=== PATIENT | female | born 1935 | race Caucasian/White ===

== ENCOUNTER → 2016-08-28 | Outpatient (REF) | payer MEDICARE, OTHER ==
[~2016-08-28] MED LIST: /ADVA50050 INH; /HCTZ25TA PO; /MOXI40TA PO; /WARF5TA; ADVAIR; ALB2.5NEB INH; ALBUTEROL; AMLO10TA2 PO; AMLO5TAB2 PO; AMLODIPINE PO; APAP325T PO; ASCO25TA PO; ASPI81TA85 PO; ASPI81TAEC PO; BAYE81TA10 PO; CALC600T21 PO; CALCTAB22; CALCTAB68 PO; CLAR10CA3 PO; CLAR5CHW; COLA100C PO; COLA50CA; COLCPOW6 PO; COUM10TA; COUM2.5T11 PO; COUMADIN; DOCU10ELUD PO; EUCECRE3 TOP; FERR324T5; FERR325T PO; FLON0.05; FLON0.054; GEMF600T PO; GLUC1000; GLUC500T PO; HYDR12.55 PO; HYDR200T3 PO; HYDR25TA6; IRON CR PO; IRON PO; IRON28TA; IRON65TA PO; IRONTAB3 PO; JANU50TA8 PO; K-TA1TAB PO; KLOR1TAB77 PO; LASI20TA PO; LASI40TA PO; LEVO250T PO; LEVO25TA2; LEVO25TA4 PO; LEVO25TA5 PO; LEVO75TA4 PO; LISI10TA4; LISI5TAB PO; LOPI600T; LORA10TA2 PO; METF1000 PO; METF500T PO; METO100T PO; METO50TA2 PO; METOPROLOL PO; MUCI600T34 PO; NEUR300C PO; NIFE15CA PO; OMEP20CA3 PO; OMEP20TA PO; PAIN325T; PLAQ200T PO; PRAD150C PO; PRAD75CA3 PO; PRED10TA PO; PRED10TA2 PO; PRIL20CA; PROAAER IN; SENO8.6T2 PO; SLOW160T PO; SUCR1TA PO; SYNT75TA PO; TOPR25TA PO; TOPROL; TYLE325T5 PO; VENTAER IN; VICO5TAB; VITA1CAP2 PO; VITACAP31 PO; ZYLO300T4 PO; ferrous gluconate; hydroxychloroquine; questran; toprol
[2016-08-28 12:59] LABS: BASO % 0.7 % (0.0-1.0); EOS # 0.2 K/mm3 (0.0-0.50); EOS % 4.5 % (0.0-3.0); LARGE UNSTAINED CELL # 0.1 K/mm3 (0.0-0.4); LARGE UNSTAINED CELL % 3.3 % (0.0-4.0); LYMPH % 25.1 % (24.0-44.0); MEAN CORPUSCULAR HEMOGLOBIN 30.9 pg (27.0-33.0); MEAN CORPUSCULAR HGB CONC 31.9 g/dl (32.0-36.5); MONO # 0.4 K/mm3 (0.0-0.8); MONO % 8.9 % (0.0-5.0); NEUTROPHILS # 2.2 K/mm3 (1.8-7.7); NEUTROPHILS % 57.5 % (36.0-66.0); PLATELET COUNT, AUTOMATED 230 k/mm3 (150-450); RED CELL DISTRIBUTION WIDTH 14.4 % (11.5-14.5); WHITE BLOOD COUNT 3.9 K/mm3 (4.0-10.0)
[2016-08-28 13:47] LABS: ALBUMIN 3.8 GM/DL (3.2-5.2); ALBUMIN/GLOBULIN RATIO 1.19 (1.00-1.93); BILIRUBIN,TOTAL 0.3 MG/DL (0.2-1.0); CALCIUM LEVEL 8.7 MG/DL (8.8-10.2); CREATININE FOR GFR 1.33 MG/DL (0.55-1.02); POTASSIUM SERUM 4.3 MEQ/L (3.5-5.1); URIC ACID 3.8 MG/DL (2.6-6.0)
== END ==
LOC: M LABDRAW1 11:32
PROVIDERS: ATTEND Internal Medicine Rheumatology
DX: Z79.899 Other long term (current) drug therapy (principal); M35.9 Systemic involvement of connective tissue, unspecified; N18.3 Chronic kidney disease, stage 3 (moderate); E79.0 Hyperuricemia without signs of inflammatory arthritis and tophaceous disease

== ENCOUNTER → 2016-10-26 | Outpatient (REF) | payer MEDICARE, OTHER ==
[2016-10-26 16:26] LABS: BASO % 0.7 % (0.0-1.0); EOS # 0.2 K/mm3 (0.0-0.50); EOS % 5.7 % (0.0-3.0); LARGE UNSTAINED CELL # 0.1 K/mm3 (0.0-0.4); LARGE UNSTAINED CELL % 2.5 % (0.0-4.0); LYMPH # 1.2 K/mm3 (1.5-4.5); LYMPH % 27.9 % (24.0-44.0); MEAN CORPUSCULAR HEMOGLOBIN 31.1 pg (27.0-33.0); MEAN CORPUSCULAR HGB CONC 32.4 g/dl (32.0-36.5); MEAN CORPUSCULAR VOLUME 95.8 fl (80.0-96.0); MONO # 0.3 K/mm3 (0.0-0.8); MONO % 8.6 % (0.0-5.0); NEUTROPHILS # 2.1 K/mm3 (1.8-7.7); NEUTROPHILS % 54.5 % (36.0-66.0); PLATELET COUNT, AUTOMATED 284 k/mm3 (150-450); WHITE BLOOD COUNT 3.9 K/mm3 (4.0-10.0)
[2016-10-26 16:41] LABS: ALBUMIN 3.8 GM/DL (3.2-5.2); ALBUMIN/GLOBULIN RATIO 1.23 (1.00-1.93); BILIRUBIN,TOTAL 0.4 MG/DL (0.2-1.0); CALCIUM LEVEL 8.5 MG/DL (8.8-10.2); CREATININE FOR GFR 1.3 MG/DL (0.55-1.02); GLOMERULAR FILTRATION RATE 42.1 (>39); POTASSIUM SERUM 4.2 MEQ/L (3.5-5.1); TOTAL PROTEIN 6.9 GM/DL (6.4-8.2); URIC ACID 3.8 MG/DL (2.6-6.0)
== END ==
LOC: M LABDRAW1 15:50
PROVIDERS: ATTEND Internal Medicine Rheumatology
DX: M06.09 Rheumatoid arthritis without rheumatoid factor, multiple sites (principal); Z79.899 Other long term (current) drug therapy; D63.8 Anemia in other chronic diseases classified elsewhere; M10.09 Idiopathic gout, multiple sites; N18.3 Chronic kidney disease, stage 3 (moderate)

== ENCOUNTER 2016-11-24 13:43 | Emergency (ER) | payer MEDICARE, OTHER ==
[~2016-11-24] VITALS: Ht 149.9 cm; Wt 99.8 kg
[~2016-11-24 13:43] MED LIST changes: -COLA100C PO; +COLA100C3 PO
[2016-11-24] MEDS ORDERED: CALC1TAB23 PO (14:06)
[2016-11-24 14:29] LABS: BASO % 0.6 % (0.0-1.0); EOS # 0.3 K/mm3 (0.0-0.50); EOS % 4.5 % (0.0-3.0); LARGE UNSTAINED CELL # 0.1 K/mm3 (0.0-0.4); LARGE UNSTAINED CELL % 1.7 % (0.0-4.0); LYMPH # 1.3 K/mm3 (1.5-4.5); LYMPH % 19.5 % (24.0-44.0); MEAN CORPUSCULAR HEMOGLOBIN 30.9 pg (27.0-33.0); MEAN CORPUSCULAR HGB CONC 31.5 g/dl (32.0-36.5); MEAN CORPUSCULAR VOLUME 97.9 fl (80.0-96.0); MONO # 0.5 K/mm3 (0.0-0.8); MONO % 7.8 % (0.0-5.0); NEUTROPHILS % 65.9 % (36.0-66.0); PLATELET COUNT, AUTOMATED 226 k/mm3 (150-450); RED CELL DISTRIBUTION WIDTH 16.5 % (11.5-14.5); WHITE BLOOD COUNT 6.1 K/mm3 (4.0-10.0)
[2016-11-24] MEDS ORDERED: CALC1TAB26 PO (14:32)
[2016-11-24] MEDS ORDERED: CALC1TAB63 PO (14:32)
[2016-11-24] MEDS ORDERED: FERR325T3 PO (14:34)
[2016-11-24] MEDS ORDERED: POTA1TAB14 PO (14:39)
[2016-11-24] MEDS ORDERED: LORA10TA2 PO (14:39)
[2016-11-24] MEDS ORDERED: OMEP40CA2 PO (14:39)
[2016-11-24] MEDS ORDERED: METO-209 PO (14:40)
[2016-11-24] MEDS ORDERED: METO-207 PO (14:40)
[2016-11-24 14:43] LABS: ABG BASE EXCESS -4.4 (-2.0-2.0); ABG HCO3 19.4 MEQ/L (22.0-26.0); ABG PARTIAL PRESSURE CO2 31.3 mmHg (35.0-45.0); ABG STANDARD HCO3 20.8 MEQ/L (22.0-26.0); ABG TOTAL CO2 20.3 MEQ/L (23.0-31.0); ABG pH (ARTERIAL) 7.409 UNITS (7.350-7.450)
[2016-11-24 15:07] LABS: ANION GAP 8 MEQ/L (8-16); BLOOD UREA NITROGEN 20 MG/DL (7-18); CARBON DIOXIDE LEVEL 26 MEQ/L (21-32); CHLORIDE LEVEL 108 MEQ/L (98-107); CREATININE FOR GFR 1.28 MG/DL (0.55-1.02); GLOMERULAR FILTRATION RATE 42.8 (>39); GLUCOSE, FASTING 99 MG/DL (83-110); POTASSIUM SERUM 4.3 MEQ/L (3.5-5.1); SODIUM LEVEL 142 MEQ/L (136-145)
[2016-11-24 15:13] LABS: ALBUMIN 3.6 GM/DL (3.2-5.2); ALBUMIN/GLOBULIN RATIO 0.92 (1.00-1.93); ALKALINE PHOSPHATASE 101 U/L (45-117); ALT/SGPT 11 U/L (12-78); AST/SGOT 14 U/L (15-37); BILIRUBIN,DIRECT < 0.1 MG/DL (0.0-0.2); BILIRUBIN,TOTAL 0.3 MG/DL (0.2-1.0); TOTAL PROTEIN 7.5 GM/DL (6.4-8.2)
[2016-11-24] MEDS ORDERED: IPRATROPIUM 0.5MG/ALBUTEROL 2.5MG INH SOL UD 3ML (DUONEB)(J7620) NEB ONE ×2 (15:15→16:30)
--- NOTE | 2016-11-24 15:41 | REP ---
Portable chest x-ray: Single view. History: Dyspnea and cough. Comparison chest x-ray November 08, 2015. Findings: A multilead pacemaker is seen in the right heart via the left side. Heart is mildly enlarged unchanged. There is no evidence of pleural effusion or pulmonary edema. No bony abnormality is seen. Impression: Pacemaker placed, mild cardiomegaly. Otherwise no active disease. Signed by William Ortega MD 11/24/2016 05:02 P
[2016-11-24] MEDS ORDERED: ISOVUE-370 76% 100ML VIAL (Q9967) As Ordered ONE (15:49)
--- NOTE | 2016-11-24 16:24 | REP ---
CT pulmonary angiogram: With IV contrast. History: Shortness of breath. Comparison studies: May 29, 2006. Contrast dose: 75 cc's of Isovue [address] technique: Helical scanning is acquired and overlapping 1.5 mm and contiguous 3 mm axial images are reformatted. In addition, a 3-D work station is deployed to generate thick slab maximum intensity projection images in sagittal and coronal imaging projections. CT pulmonary angiographic findings: There is good opacification of the pulmonary arterial tree. There is no CT evidence of pulmonary embolism. No evidence of aortic dissection or aneurysm is seen. Vascular calcification is noted. No pleural or pericardial effusion is seen. No hilar or mediastinal adenopathy is observed. No bony destructive lesion is seen. Maximum intensity projection images show no evidence of vessel cutoff or filling defect. Lung window settings show a few calcific granulomas in the right base. No pulmonary nodule, mass or infiltrate. The visualized upper abdominal structures are unremarkable. Impression: Negative CT pulmonary angiogram. No CT evidence of pulmonary embolism. Signed by William Ortega MD 11/24/2016 05:02 P
[2016-11-24] MEDS: IPRATROPIUM 0.5MG/ALBUTEROL 2.5MG INH SOL UD 3ML (DUONEB)(J7620) NEB PRN ×2 (16:36→16:48)
[2016-11-24 17:47] VITALS: BP 165/73
[2016-11-24 17:58] VITALS: O2SAT 91
[2016-11-24] MEDS ORDERED: NEBUMIS2 XX (18:14)
[2016-11-24] MEDS ORDERED: IPRASOL4 IN (18:15)
--- NOTE | 2016-11-24 20:39 | ECGEPIP ---
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
== END 2016-11-24 18:43 | disposition home or self-care (01) ==
LOC: M ED 14:40
DX: R06.2 Wheezing (principal); E11.9 Type 2 diabetes mellitus without complications; I48.2 Chronic atrial fibrillation
CPT/HCPCS: 36600; 71010; 71275; 80048; 80076; 82550; 82553; 82803; 83605; 83880; 84443; 84484; 85025; 87040; 93005; 93041; 94640; 94760; 99284; Q9967

== ENCOUNTER 2017-01-09 12:01 | Emergency (ER) | payer MEDICARE, OTHER ==
[~2017-01-09] VITALS: Ht 149.9 cm; Wt 98.4 kg
[~2017-01-09 12:01] MED LIST changes: +CALC1TAB23 PO; +CALC1TAB26 PO; +CALC1TAB63 PO; +FERR325T3 PO; +IPRASOL4 IN; +METO-207 PO; +METO-209 PO; +NEBUMIS2 XX; +OMEP40CA2 PO; +POTA1TAB14 PO
[2017-01-09] MEDS ORDERED: OMEP40CA2 PO (12:24)
[2017-01-09] MEDS ORDERED: IRON1TAB PO (12:24)
[2017-01-09] MEDS ORDERED: METO-207 PO (12:24)
[2017-01-09] MEDS ORDERED: LASI40TA PO (12:24)
[2017-01-09] MEDS ORDERED: METO-209 PO (12:24)
[2017-01-09] MEDS ORDERED: SYNT75TA PO (12:24)
[2017-01-09] MEDS ORDERED: EQ O20TA4 PO (12:24)
[2017-01-09] MEDS ORDERED: methylPREDNISolone INJ 125 MG/2 ML VIAL (J2930) IV ONE (12:45)
[2017-01-09 13:24] LABS: BASO % 0.3 % (0.0-1.0); EOS # 0.3 K/mm3 (0.0-0.50); EOS % 5.3 % (0.0-3.0); LARGE UNSTAINED CELL # 0.1 K/mm3 (0.0-0.4); LARGE UNSTAINED CELL % 1.4 % (0.0-4.0); LYMPH # 1.3 K/mm3 (1.5-4.5); LYMPH % 20.1 % (24.0-44.0); MEAN CORPUSCULAR HEMOGLOBIN 31.9 pg (27.0-33.0); MEAN CORPUSCULAR VOLUME 96.7 fl (80.0-96.0); MONO # 0.4 K/mm3 (0.0-0.8); MONO % 6.3 % (0.0-5.0); NEUTROPHILS # 4.1 K/mm3 (1.8-7.7); NEUTROPHILS % 66.6 % (36.0-66.0); PLATELET COUNT, AUTOMATED 211 k/mm3 (150-450); RED CELL DISTRIBUTION WIDTH 15.5 % (11.5-14.5); WHITE BLOOD COUNT 6.2 K/mm3 (4.0-10.0)
[2017-01-09] MEDS: IPRATROPIUM 0.5MG/ALBUTEROL 2.5MG INH SOL UD 3ML (DUONEB)(J7620) NEB PRN ×2 (13:26→15:18)
[2017-01-09 13:58] LABS: CALCIUM LEVEL 9.4 MG/DL (8.8-10.2); CREATININE FOR GFR 1.15 MG/DL (0.55-1.02); GLOMERULAR FILTRATION RATE 48.5 (>39); POTASSIUM SERUM 4.2 MEQ/L (3.5-5.1)
--- NOTE | 2017-01-09 14:20 | REP ---
Chest two views HISTORY: Dyspnea Comparison: 11/24/2016 The lungs are clear. The cardiac silhouette is enlarged. The pulmonary vasculature is normal in appearance. The bony structure is intact. A cardiac pacemaker is present. IMPRESSION: Cardiomegaly. Signed by Johan Arellano MD 01/09/2017 02:12 P
[2017-01-09 15:53] VITALS: BP 158/78
[2017-01-09 15:55] VITALS: O2SAT 96
[2017-01-09] MEDS ORDERED: PRED20TA PO (16:50)
--- NOTE | 2017-01-10 07:20 | ECGEPIP ---
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
== END 2017-01-09 17:48 | disposition home or self-care (01) ==
LOC: M ED 13:00
DX: J06.9 Acute upper respiratory infection, unspecified (principal); I48.91 Unspecified atrial fibrillation; I25.10 Atherosclerotic heart disease of native coronary artery without angina pectoris; I12.9 Hypertensive chronic kidney disease with stage 1 through stage 4 chronic kidney disease, or unspecified chronic kidney disease; E78.4 Other hyperlipidemia; N18.9 Chronic kidney disease, unspecified; Z87.891 Personal history of nicotine dependence
CPT/HCPCS: 71020; 80048; 82550; 82553; 83880; 84484; 85025; 93005; 93041; 94640; 94760; 96374; 99285; J2930

== ENCOUNTER → 2017-02-26 | Outpatient (CLI) | payer MEDICARE, OTHER ==
[~2017-02-26] MED LIST changes: -APAP325T PO; +APAP325T4 PO; -CALC600T21 PO; +CALC600T60 PO; -COLA100C3 PO; +COLA100C5 PO; -COUM2.5T11 PO; +COUM2.5T17 PO; +EQ O20TA4 PO; +FERR1TAB8 PO; -FERR325T PO; +IRON1TAB PO; -METF1000 PO; +METF10004 PO; -METF500T PO; +METF500T13 PO; -METO-207 PO; -METO-209 PO; -METO100T PO; +METO100T5 PO; +METO1TAB33 PO; +METO1TAB7 PO; -METO50TA2 PO; +METO50TA7 PO; +PRED20TA PO; -SENO8.6T2 PO; +SENO8.6T5 PO
--- NOTE | 2017-02-26 11:40 | REPMRS ---
Patient History The patient states she has not had a clinical breast exam in over a year. Patient is postmenopausal. Family history of breast cancer in mother at age 50 or over. Benign excisional biopsy of the right breast. Digital Woman Screen Mammo: February 26, 2017 - Exam #: [id number] Bilateral CC and MLO view(s) were taken. Technologist: Umm Nelson, Technologist Prior study comparison: February 14, 2016, digital woman screen mammo performed at [facility]. January 25, 2015, digital woman screen mammo performed at [facility] to [facility]. FINDINGS: There are scattered fibroglandular densities. There is a fairly symmetric fibroglandular pattern in both breasts. There has been no interval development of masses, areas of architectural distortion or clusters of microcalcifications typical of malignancy. ASSESSMENT: BI-RADS/ACR category 2 mammogram. Benign finding(s). Recommendation Routine screening mammogram of both breasts in 1 year (for women over age 40). This mammogram was interpreted with the aid of an FDA-approved computer-aided dectection system. Electronically Signed By: John Choi MD 02/26/17 [id number]
== END ==
LOC: M WHC 10:25
PROVIDERS: ATTEND Internal Medicine
DX: Z12.31 Encounter for screening mammogram for malignant neoplasm of breast (principal); Z78.0 Asymptomatic menopausal state; Z80.3 Family history of malignant neoplasm of breast

== ENCOUNTER → 2017-04-26 | Outpatient (REF) | payer MEDICARE, OTHER ==
[2017-04-26 16:24] LABS: ALBUMIN 4.1 GM/DL (3.2-5.2); ALBUMIN/GLOBULIN RATIO 1.11 (1.00-1.93); ALKALINE PHOSPHATASE 132 U/L (45-117); ALT/SGPT 11 U/L (12-78); ANION GAP 10 MEQ/L (8-16); AST/SGOT 17 U/L (15-37); BILIRUBIN,TOTAL 0.5 MG/DL (0.2-1.0); BLOOD UREA NITROGEN 42 MG/DL (7-18); CARBON DIOXIDE LEVEL 28 MEQ/L (21-32); CHLORIDE LEVEL 99 MEQ/L (98-107); CREATININE FOR GFR 1.41 MG/DL (0.55-1.02); GLOMERULAR FILTRATION RATE 38.3 (>39); GLUCOSE, FASTING 125 MG/DL (83-110); POTASSIUM SERUM 4.2 MEQ/L (3.5-5.1); SODIUM LEVEL 137 MEQ/L (136-145); TOTAL PROTEIN 7.8 GM/DL (6.4-8.2); URIC ACID 4.6 MG/DL (2.6-6.0)
[2017-04-26 17:06] LABS: BASO % 0.8 % (0.0-1.0); EOS # 0.3 K/mm3 (0.0-0.50); LARGE UNSTAINED CELL # 0.2 K/mm3 (0.0-0.4); LARGE UNSTAINED CELL % 2.8 % (0.0-4.0); LYMPH # 1.3 K/mm3 (1.5-4.5); LYMPH % 24.1 % (24.0-44.0); MEAN CORPUSCULAR HEMOGLOBIN 32.7 pg (27.0-33.0); MEAN CORPUSCULAR HGB CONC 33.7 g/dl (32.0-36.5); MONO # 0.4 K/mm3 (0.0-0.8); MONO % 7.7 % (0.0-5.0); NEUTROPHILS # 3.2 K/mm3 (1.8-7.7); NEUTROPHILS % 59.7 % (36.0-66.0); PLATELET COUNT, AUTOMATED 282 k/mm3 (150-450); RED CELL DISTRIBUTION WIDTH 14.7 % (11.5-14.5); WHITE BLOOD COUNT 5.4 K/mm3 (4.0-10.0)
== END ==
LOC: M LABDRAW1 13:11
PROVIDERS: ATTEND Internal Medicine Rheumatology
DX: M35.9 Systemic involvement of connective tissue, unspecified (principal); N18.3 Chronic kidney disease, stage 3 (moderate); Z79.899 Other long term (current) drug therapy

== ENCOUNTER 2017-08-02 15:27 | Emergency (ER) | payer MEDICARE, OTHER ==
[2017-08-02 16:22] LABS: BASO % 0.6 % (0.0-1.0); EOS # 0.2 10^3/uL (0.0-0.50); IMMATURE GRANULOCYTE % 0.8 % (0-0); LYMPH % 20.7 % (24.0-44.0); MEAN CORPUSCULAR HEMOGLOBIN 32.6 pg (27.0-33.0); MEAN CORPUSCULAR HGB CONC 31.8 g/dl (32.0-36.5); MEAN CORPUSCULAR VOLUME 102.3 fl (80.0-96.0); MONO # 0.6 10^3/uL (0.0-0.8); MONO % 11.7 % (0.0-5.0); NEUTROPHILS # 3.1 10^3/uL (1.8-7.7); NEUTROPHILS % 62.2 % (36.0-66.0); PLATELET COUNT, AUTOMATED 244 10^3/uL (150-450); RED CELL DISTRIBUTION WIDTH 16.3 % (11.5-14.5)
[2017-08-02] MEDS: methylPREDNISolone INJ 125 MG/2 ML VIAL (J2930) IV (16:30)
[2017-08-02] MEDS: FUROSEMIDE 40 MG/4 ML VIAL (J1940) IV (16:30)
[2017-08-02] MEDS: IPRATROPIUM 0.5MG/ALBUTEROL 2.5MG INH SOL UD 3ML (DUONEB)(J7620) NEB (16:39)
[2017-08-02 16:51] LABS: ANION GAP 7 MEQ/L (8-16); BLOOD UREA NITROGEN 16 MG/DL (7-18); CALCIUM LEVEL 8.2 MG/DL (8.8-10.2); CARBON DIOXIDE LEVEL 22 MEQ/L (21-32); CHLORIDE LEVEL 113 MEQ/L (98-107); CREATININE FOR GFR 1.11 MG/DL (0.55-1.02); GLOMERULAR FILTRATION RATE 50.5 (>39); GLUCOSE, FASTING 139 MG/DL (83-110); POTASSIUM SERUM 5.1 MEQ/L (3.5-5.1); SODIUM LEVEL 142 MEQ/L (136-145)
== END 2017-08-02 17:39 | disposition home or self-care (01) ==
LOC: M ED 15:27
DX: R06.02 Shortness of breath (principal); I50.9 Heart failure, unspecified; K21.9 Gastro-esophageal reflux disease without esophagitis; Z79.82 Long term (current) use of aspirin; Z79.899 Other long term (current) drug therapy; Z79.84 Long term (current) use of oral hypoglycemic drugs; Z88.5 Allergy status to narcotic agent; Z91.040 Latex allergy status; Z91.048 Other nonmedicinal substance allergy status; Z95.0 Presence of cardiac pacemaker; Z87.01 Personal history of pneumonia (recurrent); Z98.890 Other specified postprocedural states; Z87.891 Personal history of nicotine dependence
CPT/HCPCS: J1940

== ENCOUNTER 2017-09-18 06:01 | Inpatient (IN) | payer MEDICARE, OTHER ==
[2017-09-18 08:19] LABS: BASO % 0.5 % (0.0-1.0); EOS # 0.1 10^3/uL (0.0-0.50); EOS % 1.7 % (0.0-3.0); HEMATOCRIT 28.4 % (36.0-47.0); IMMATURE GRANULOCYTE % 0.4 % (0-3.0); LYMPH # 0.8 10^3/uL (1.5-4.5); LYMPH % 9.2 % (24.0-44.0); MEAN CORPUSCULAR HEMOGLOBIN 31.5 pg (27.0-33.0); MEAN CORPUSCULAR HGB CONC 31.7 g/dl (32.0-36.5); MEAN CORPUSCULAR VOLUME 99.3 fl (80.0-96.0); MONO # 0.7 10^3/uL (0.0-0.8); MONO % 8.8 % (0.0-5.0); NEUTROPHILS # 6.6 10^3/uL (1.8-7.7); NEUTROPHILS % 79.4 % (36.0-66.0); PLATELET COUNT, AUTOMATED 277 10^3/uL (150-450); RED BLOOD COUNT 2.86 10^6/uL (4.00-5.40); WHITE BLOOD COUNT 8.3 10^3/uL (4.0-10.0)
[2017-09-18 08:22] LABS: INR 1.31; PROTHROMBIN TIME 16.6 SECONDS (12.4-14.5)
[2017-09-18 08:23] LABS: PARTIAL THROMBOPLASTIN TIME 54.4 SECONDS (26.8-37.9)
[2017-09-18 08:38] LABS: ALBUMIN 3.6 GM/DL (3.2-5.2); ALKALINE PHOSPHATASE 101 U/L (45-117); ALT/SGPT 9 U/L (12-78); ANION GAP 12 MEQ/L (8-16); AST/SGOT 12 U/L (7-37); BILIRUBIN,DIRECT < 0.1 MG/DL (0.0-0.2); BILIRUBIN,TOTAL 0.3 MG/DL (0.2-1.0); BLOOD UREA NITROGEN 40 MG/DL (7-18); CALCIUM LEVEL 8.8 MG/DL (8.8-10.2); CARBON DIOXIDE LEVEL 25 MEQ/L (21-32); CHLORIDE LEVEL 105 MEQ/L (98-107); CREATININE FOR GFR 1.57 MG/DL (0.55-1.30); GLOMERULAR FILTRATION RATE 33.7 (>32); GLUCOSE, FASTING 159 MG/DL (70-100); POTASSIUM SERUM 4.4 MEQ/L (3.5-5.1); SODIUM LEVEL 142 MEQ/L (136-145); TOTAL PROTEIN 6.6 GM/DL (6.4-8.2)
[2017-09-18] MEDS ORDERED: ISOVUE-370 76% 100ML VIAL (Q9967) As Ordered (08:50)
[2017-09-18] MEDS: NS 500 ML IV (09:30)
[2017-09-18] MEDS ORDERED: GLUCAGON FOR INJ 1 MG VIAL (J1610) SC (11:45)
[2017-09-18] MEDS ORDERED: MORPHINE 4 MG/ML 1ML VIAL (J2270) IV (11:45)
[2017-09-18] MEDS ORDERED: DEXTROSE 50% 50 ML SYRINGE IV (11:45)
[2017-09-18] MEDS ORDERED: GLUCOSE 4 GM CHEW TABLET PO (11:45)
[2017-09-18 12:32] LABS: BEDSIDE GLUCOSE 214 MG/DL (83-110)
[2017-09-18] MEDS: HumaLOG INSULIN (NovoLOG) PER UNIT SC ×3 (13:10→21:00)
[2017-09-18] MEDS: HEPARIN SOD (PORCINE) 5000 UNITS/ML VIAL SC ×2 (13:10→21:14)
[2017-09-18] MEDS: LORATADINE 10 MG TAB PO (15:03)
[2017-09-18] MEDS: ASPIRIN 81 MG ENTERIC TAB PO (15:03)
[2017-09-18] MEDS: ALLOPURINOL 300 MG TAB PO (15:03)
[2017-09-18] MEDS: OMEPRAZOLE 20 MG CAP PO (15:03)
[2017-09-18] MEDS: HYDROXYCHLOROQUINE 200 MG TAB PO (16:33)
[2017-09-18] MEDS: SUCRALFATE 1 GM TAB PO ×2 (16:33→21:12)
[2017-09-18] MEDS: LEVOTHYROXINE 37.5MCG PER 1/2TAB (0.0375MG) PO (16:33)
[2017-09-18 17:34] LABS: BEDSIDE GLUCOSE 156 MG/DL (83-110)
[2017-09-18] MEDS: METOPROLOL SUCC (TopROL XL) 50MG **XL** TAB PO (21:13)
[2017-09-18] MEDS: DABIGATRAN ETEXILATE 75 MG CAP (PRADAXA) PO (21:13)
[2017-09-18] MEDS: FERROUS SULFATE 325MG TAB PO (21:15)
[2017-09-19 06:27] LABS: HEMATOCRIT 25.2 % (36.0-47.0); MEAN CORPUSCULAR HEMOGLOBIN 30.9 pg (27.0-33.0); MEAN CORPUSCULAR HGB CONC 31.7 g/dl (32.0-36.5); MEAN CORPUSCULAR VOLUME 97.3 fl (80.0-96.0); PLATELET COUNT, AUTOMATED 236 10^3/uL (150-450); RED BLOOD COUNT 2.59 10^6/uL (4.00-5.40); WHITE BLOOD COUNT 4.2 10^3/uL (4.0-10.0)
[2017-09-19 06:39] LABS: ANION GAP 9 MEQ/L (8-16); BLOOD UREA NITROGEN 36 MG/DL (7-18); CALCIUM LEVEL 8.9 MG/DL (8.8-10.2); CARBON DIOXIDE LEVEL 25 MEQ/L (21-32); CHLORIDE LEVEL 108 MEQ/L (98-107); CREATININE FOR GFR 1.21 MG/DL (0.55-1.30); GLOMERULAR FILTRATION RATE 45.6 (>32); GLUCOSE, FASTING 155 MG/DL (70-100); MAGNESIUM LEVEL 1.8 MG/DL (1.8-2.4); POTASSIUM SERUM 3.9 MEQ/L (3.5-5.1); SODIUM LEVEL 142 MEQ/L (136-145)
[2017-09-19] MEDS: HEPARIN SOD (PORCINE) 5000 UNITS/ML VIAL SC ×3 (06:53→22:15)
[2017-09-19] MEDS: LEVOTHYROXINE 37.5MCG PER 1/2TAB (0.0375MG) PO (06:53)
[2017-09-19] MEDS: HumaLOG INSULIN (NovoLOG) PER UNIT SC ×4 (08:40→21:00)
[2017-09-19] MEDS: ASPIRIN 81 MG ENTERIC TAB PO (08:40)
[2017-09-19] MEDS: HYDROXYCHLOROQUINE 200 MG TAB PO (08:40)
[2017-09-19] MEDS: LORATADINE 10 MG TAB PO (08:40)
[2017-09-19] MEDS: DABIGATRAN ETEXILATE 75 MG CAP (PRADAXA) PO ×2 (08:40→22:15)
[2017-09-19] MEDS: SUCRALFATE 1 GM TAB PO ×4 (08:41→22:15)
[2017-09-19] MEDS: FERROUS SULFATE 325MG TAB PO ×2 (08:41→22:15)
[2017-09-19] MEDS: METOPROLOL SUCC (TopROL XL) 100MG *XL* TAB PO (08:41)
[2017-09-19] MEDS: OMEPRAZOLE 20 MG CAP PO (08:41)
[2017-09-19] MEDS: ALLOPURINOL 300 MG TAB PO (08:41)
[2017-09-19 10:11] LABS: BEDSIDE GLUCOSE 203 MG/DL (83-110)
[2017-09-19 12:09] LABS: BEDSIDE GLUCOSE 244 MG/DL (83-110)
[2017-09-19 18:35] LABS: BASO # 0.1 10^3/uL (0.0-0.2); EOS # 0.2 10^3/uL (0.0-0.50); EOS % 3.2 % (0.0-3.0); HEMATOCRIT 26.9 % (36.0-47.0); HEMOGLOBIN 8.6 g/dl (12.0-16.0); IMMATURE GRANULOCYTE % 0.5 % (0-3.0); LYMPH # 1.3 10^3/uL (1.5-4.5); LYMPH % 21.3 % (24.0-44.0); MEAN CORPUSCULAR HEMOGLOBIN 31.4 pg (27.0-33.0); MEAN CORPUSCULAR VOLUME 98.2 fl (80.0-96.0); MONO # 0.7 10^3/uL (0.0-0.8); MONO % 12.3 % (0.0-5.0); NEUTROPHILS # 3.6 10^3/uL (1.8-7.7); NEUTROPHILS % 61.7 % (36.0-66.0); PLATELET COUNT, AUTOMATED 254 10^3/uL (150-450); RED BLOOD COUNT 2.74 10^6/uL (4.00-5.40); RED CELL DISTRIBUTION WIDTH 14.2 % (11.5-14.5); WHITE BLOOD COUNT 5.9 10^3/uL (4.0-10.0)
[2017-09-19 21:04] LABS: BEDSIDE GLUCOSE 243 MG/DL (83-110)
[2017-09-19 21:30] LABS: BEDSIDE GLUCOSE 188 MG/DL (83-110)
[2017-09-19] MEDS: METOPROLOL SUCC (TopROL XL) 50MG **XL** TAB PO (22:15)
[2017-09-19] MEDS: ACETAMINOPHEN TAB 650MG DOSE (2X325MG) PO (22:25)
[2017-09-20] MEDS: LEVOTHYROXINE 37.5MCG PER 1/2TAB (0.0375MG) PO (05:24)
[2017-09-20] MEDS: HEPARIN SOD (PORCINE) 5000 UNITS/ML VIAL SC ×3 (05:24→21:21)
[2017-09-20 05:49] LABS: HEMATOCRIT 27.3 % (36.0-47.0); HEMOGLOBIN 8.7 g/dl (12.0-16.0); MEAN CORPUSCULAR HGB CONC 31.9 g/dl (32.0-36.5); MEAN CORPUSCULAR VOLUME 97.2 fl (80.0-96.0); PLATELET COUNT, AUTOMATED 268 10^3/uL (150-450); RED BLOOD COUNT 2.81 10^6/uL (4.00-5.40); RED CELL DISTRIBUTION WIDTH 14.1 % (11.5-14.5); WHITE BLOOD COUNT 6.2 10^3/uL (4.0-10.0)
[2017-09-20 06:05] LABS: ANION GAP 10 MEQ/L (8-16); BLOOD UREA NITROGEN 37 MG/DL (7-18); CALCIUM LEVEL 9.1 MG/DL (8.8-10.2); CARBON DIOXIDE LEVEL 24 MEQ/L (21-32); CHLORIDE LEVEL 109 MEQ/L (98-107); CREATININE FOR GFR 1.21 MG/DL (0.55-1.30); GLOMERULAR FILTRATION RATE 45.6 (>32); GLUCOSE, FASTING 174 MG/DL (70-100); MAGNESIUM LEVEL 1.9 MG/DL (1.8-2.4); POTASSIUM SERUM 3.8 MEQ/L (3.5-5.1); SODIUM LEVEL 143 MEQ/L (136-145)
[2017-09-20] MEDS: OMEPRAZOLE 20 MG CAP PO (08:15)
[2017-09-20] MEDS: DABIGATRAN ETEXILATE 75 MG CAP (PRADAXA) PO ×2 (08:15→21:21)
[2017-09-20] MEDS: HumaLOG INSULIN (NovoLOG) PER UNIT SC ×4 (08:15→21:00)
[2017-09-20] MEDS: SUCRALFATE 1 GM TAB PO ×4 (08:15→21:21)
[2017-09-20] MEDS: ALLOPURINOL 300 MG TAB PO (08:16)
[2017-09-20] MEDS: ASPIRIN 81 MG ENTERIC TAB PO (08:16)
[2017-09-20] MEDS: LORATADINE 10 MG TAB PO (08:16)
[2017-09-20] MEDS: METOPROLOL SUCC (TopROL XL) 100MG *XL* TAB PO (08:16)
[2017-09-20] MEDS: HYDROXYCHLOROQUINE 200 MG TAB PO (08:16)
[2017-09-20] MEDS: FERROUS SULFATE 325MG TAB PO ×2 (08:16→21:22)
[2017-09-20 11:55] LABS: BEDSIDE GLUCOSE 265 MG/DL (83-110)
[2017-09-20 17:41] LABS: BEDSIDE GLUCOSE 218 MG/DL (83-110)
[2017-09-20] MEDS: METOPROLOL SUCC (TopROL XL) 50MG **XL** TAB PO (21:22)
[2017-09-20] MEDS: ACETAMINOPHEN TAB 650MG DOSE (2X325MG) PO (21:22)
[2017-09-21] MEDS ORDERED: SENOKOT S TAB PO (02:45)
[2017-09-21 02:49] LABS: BEDSIDE GLUCOSE 224 MG/DL (83-110)
[2017-09-21] MEDS: HEPARIN SOD (PORCINE) 5000 UNITS/ML VIAL SC ×3 (05:51→21:37)
[2017-09-21] MEDS: LEVOTHYROXINE 37.5MCG PER 1/2TAB (0.0375MG) PO (05:51)
[2017-09-21 06:13] LABS: HEMATOCRIT 25.2 % (36.0-47.0); HEMOGLOBIN 8.1 g/dl (12.0-16.0); MEAN CORPUSCULAR HEMOGLOBIN 31.3 pg (27.0-33.0); MEAN CORPUSCULAR HGB CONC 32.1 g/dl (32.0-36.5); MEAN CORPUSCULAR VOLUME 97.3 fl (80.0-96.0); PLATELET COUNT, AUTOMATED 245 10^3/uL (150-450); RED BLOOD COUNT 2.59 10^6/uL (4.00-5.40); RED CELL DISTRIBUTION WIDTH 14.2 % (11.5-14.5); WHITE BLOOD COUNT 4.7 10^3/uL (4.0-10.0)
[2017-09-21 07:03] LABS: ANION GAP 12 MEQ/L (8-16); BLOOD UREA NITROGEN 36 MG/DL (7-18); CALCIUM LEVEL 8.2 MG/DL (8.8-10.2); CARBON DIOXIDE LEVEL 23 MEQ/L (21-32); CHLORIDE LEVEL 108 MEQ/L (98-107); CREATININE FOR GFR 1.15 MG/DL (0.55-1.30); GLOMERULAR FILTRATION RATE 48.3 (>32); GLUCOSE, FASTING 164 MG/DL (70-100); MAGNESIUM LEVEL 1.9 MG/DL (1.8-2.4); POTASSIUM SERUM 3.5 MEQ/L (3.5-5.1); SODIUM LEVEL 143 MEQ/L (136-145)
[2017-09-21] MEDS: HumaLOG INSULIN (NovoLOG) PER UNIT SC ×4 (08:42→21:37)
[2017-09-21] MEDS: OMEPRAZOLE 20 MG CAP PO (08:42)
[2017-09-21] MEDS: ASPIRIN 81 MG ENTERIC TAB PO (08:42)
[2017-09-21] MEDS: METOPROLOL SUCC (TopROL XL) 100MG *XL* TAB PO (08:42)
[2017-09-21] MEDS: FERROUS SULFATE 325MG TAB PO ×2 (08:42→21:38)
[2017-09-21] MEDS: SUCRALFATE 1 GM TAB PO ×4 (08:42→21:38)
[2017-09-21] MEDS: LORATADINE 10 MG TAB PO (08:42)
[2017-09-21] MEDS: ALLOPURINOL 300 MG TAB PO (08:42)
[2017-09-21] MEDS: DABIGATRAN ETEXILATE 75 MG CAP (PRADAXA) PO ×2 (08:42→21:37)
[2017-09-21] MEDS: HYDROXYCHLOROQUINE 200 MG TAB PO (08:53)
[2017-09-21 11:50] LABS: BEDSIDE GLUCOSE 201 MG/DL (83-110)
[2017-09-21 17:06] LABS: BEDSIDE GLUCOSE 222 MG/DL (83-110)
[2017-09-21] MEDS: METOPROLOL SUCC (TopROL XL) 50MG **XL** TAB PO (21:38)
[2017-09-22] MEDS: HEPARIN SOD (PORCINE) 5000 UNITS/ML VIAL SC (05:43)
[2017-09-22] MEDS: LEVOTHYROXINE 37.5MCG PER 1/2TAB (0.0375MG) PO (05:43)
[2017-09-22 06:56] LABS: HEMATOCRIT 23.4 % (36.0-47.0); HEMOGLOBIN 7.5 g/dl (12.0-16.0); MEAN CORPUSCULAR HGB CONC 32.1 g/dl (32.0-36.5); MEAN CORPUSCULAR VOLUME 96.7 fl (80.0-96.0); PLATELET COUNT, AUTOMATED 222 10^3/uL (150-450); RED BLOOD COUNT 2.42 10^6/uL (4.00-5.40); RED CELL DISTRIBUTION WIDTH 14.1 % (11.5-14.5)
[2017-09-22 07:20] LABS: ANION GAP 10 MEQ/L (8-16); BLOOD UREA NITROGEN 36 MG/DL (7-18); CALCIUM LEVEL 8.2 MG/DL (8.8-10.2); CARBON DIOXIDE LEVEL 24 MEQ/L (21-32); CHLORIDE LEVEL 108 MEQ/L (98-107); GLOMERULAR FILTRATION RATE 50.9 (>32); GLUCOSE, FASTING 172 MG/DL (70-100); MAGNESIUM LEVEL 1.9 MG/DL (1.8-2.4); POTASSIUM SERUM 3.5 MEQ/L (3.5-5.1); SODIUM LEVEL 142 MEQ/L (136-145)
[2017-09-22] MEDS: DABIGATRAN ETEXILATE 75 MG CAP (PRADAXA) PO (07:49)
[2017-09-22] MEDS: ALLOPURINOL 300 MG TAB PO (07:49)
[2017-09-22] MEDS: OMEPRAZOLE 20 MG CAP PO (07:49)
[2017-09-22] MEDS: HumaLOG INSULIN (NovoLOG) PER UNIT SC ×4 (07:50→21:00)
[2017-09-22] MEDS: SUCRALFATE 1 GM TAB PO ×4 (07:50→21:25)
[2017-09-22] MEDS: FERROUS SULFATE 325MG TAB PO ×2 (07:50→21:25)
[2017-09-22] MEDS: METOPROLOL SUCC (TopROL XL) 100MG *XL* TAB PO (07:50)
[2017-09-22] MEDS: ASPIRIN 81 MG ENTERIC TAB PO (07:50)
[2017-09-22] MEDS: HYDROXYCHLOROQUINE 200 MG TAB PO (07:50)
[2017-09-22] MEDS: LORATADINE 10 MG TAB PO (07:51)
[2017-09-22 12:05] LABS: LDH LACTATE DEHYDROGENASE 213 U/L (84-246)
[2017-09-22 12:05] LABS: FERRITIN 27 NG/ML (8-252); IRON (FE) 30 UG/DL (50-170); PERCENT SATURATION 7.6 % (13.2-45.0); TOTAL IRON BINDING CAPACITY 393 UG/DL (250-450)
[2017-09-22 12:10] LABS: BEDSIDE GLUCOSE 196 MG/DL (83-110)
[2017-09-22 12:15] LABS: REASON FOR REVIEW ANEMIA / RBC MORPH; SLIDE REVIEW Report; SOURCE PERIPHERAL SMEAR
[2017-09-22] MEDS: D5W/0.45% SODIUM CHLORIDE 1,000 ML IV (13:15)
[2017-09-22 15:07] LABS: IMMEDIATE SPIN CROSSMATCH 1 1
[2017-09-22 16:54] LABS: BEDSIDE GLUCOSE 281 MG/DL (83-110)
[2017-09-22 20:17] LABS: HEMATOCRIT 29.7 % (36.0-47.0); HEMOGLOBIN 9.3 g/dl (12.0-16.0)
[2017-09-22 20:43] LABS: BEDSIDE GLUCOSE 224 MG/DL (83-110)
[2017-09-22] MEDS: ACETAMINOPHEN TAB 650MG DOSE (2X325MG) PO (21:25)
[2017-09-22] MEDS: METOPROLOL SUCC (TopROL XL) 50MG **XL** TAB PO (21:26)
[2017-09-22] MEDS: PANTOPRAZOLE 40MG TAB (PROTONIX) PO (21:26)
[2017-09-23 02:15] LABS: HEMATOCRIT 25.3 % (36.0-47.0); HEMOGLOBIN 8.1 g/dl (12.0-16.0)
[2017-09-23] MEDS: D5W/0.45% SODIUM CHLORIDE 1,000 ML IV (05:56)
[2017-09-23] MEDS: LEVOTHYROXINE 37.5MCG PER 1/2TAB (0.0375MG) PO (05:56)
[2017-09-23 06:42] LABS: HEMATOCRIT 27.2 % (36.0-47.0); HEMOGLOBIN 8.6 g/dl (12.0-16.0); MEAN CORPUSCULAR HGB CONC 31.6 g/dl (32.0-36.5); MEAN CORPUSCULAR VOLUME 98.2 fl (80.0-96.0); PLATELET COUNT, AUTOMATED 243 10^3/uL (150-450); RED BLOOD COUNT 2.77 10^6/uL (4.00-5.40); RED CELL DISTRIBUTION WIDTH 14.3 % (11.5-14.5); WHITE BLOOD COUNT 5.4 10^3/uL (4.0-10.0)
[2017-09-23 07:11] LABS: ANION GAP 13 MEQ/L (8-16); BLOOD UREA NITROGEN 35 MG/DL (7-18); CALCIUM LEVEL 8.3 MG/DL (8.8-10.2); CARBON DIOXIDE LEVEL 20 MEQ/L (21-32); CHLORIDE LEVEL 107 MEQ/L (98-107); CREATININE FOR GFR 1.12 MG/DL (0.55-1.30); GLOMERULAR FILTRATION RATE 49.8 (>32); GLUCOSE, FASTING 194 MG/DL (70-100); MAGNESIUM LEVEL 1.7 MG/DL (1.8-2.4); POTASSIUM SERUM 3.5 MEQ/L (3.5-5.1); SODIUM LEVEL 140 MEQ/L (136-145)
[2017-09-23] MEDS: MAGNESIUM OXIDE 400 MG TAB (MAG-OX) PO ×2 (10:08→21:31)
[2017-09-23] MEDS: ALLOPURINOL 300 MG TAB PO (10:08)
[2017-09-23] MEDS: LORATADINE 10 MG TAB PO (10:09)
[2017-09-23] MEDS: METOPROLOL SUCC (TopROL XL) 100MG *XL* TAB PO (10:09)
[2017-09-23] MEDS: ASPIRIN 81 MG ENTERIC TAB PO (10:09)
[2017-09-23] MEDS: HYDROXYCHLOROQUINE 200 MG TAB PO (10:09)
[2017-09-23] MEDS: FERROUS SULFATE 325MG TAB PO ×2 (10:09→21:31)
[2017-09-23] MEDS: PANTOPRAZOLE 40MG TAB (PROTONIX) PO ×2 (10:09→21:31)
[2017-09-23] MEDS: HumaLOG INSULIN (NovoLOG) PER UNIT SC ×4 (10:10→21:46)
[2017-09-23] MEDS: SUCRALFATE 1 GM TAB PO ×4 (10:10→21:30)
[2017-09-23 12:04] LABS: BEDSIDE GLUCOSE 192 MG/DL (83-110)
[2017-09-23 17:29] LABS: HEMOGLOBIN 8.4 g/dl (12.0-16.0)
[2017-09-23 17:31] LABS: BEDSIDE GLUCOSE 186 MG/DL (83-110)
[2017-09-23 17:46] LABS: INR 1.17; PROTHROMBIN TIME 15.1 SECONDS (12.4-14.5)
[2017-09-23 17:47] LABS: PARTIAL THROMBOPLASTIN TIME 39.1 SECONDS (26.8-37.9)
[2017-09-23 20:43] LABS: BEDSIDE GLUCOSE 270 MG/DL (83-110)
[2017-09-23] MEDS: ACETAMINOPHEN TAB 650MG DOSE (2X325MG) PO (21:31)
[2017-09-23] MEDS: METOPROLOL SUCC (TopROL XL) 50MG **XL** TAB PO (21:32)
[2017-09-24 06:29] LABS: HEMATOCRIT 25.3 % (36.0-47.0); HEMOGLOBIN 8.2 g/dl (12.0-16.0); MEAN CORPUSCULAR HEMOGLOBIN 31.5 pg (27.0-33.0); MEAN CORPUSCULAR HGB CONC 32.4 g/dl (32.0-36.5); MEAN CORPUSCULAR VOLUME 97.3 fl (80.0-96.0); PLATELET COUNT, AUTOMATED 234 10^3/uL (150-450); RED CELL DISTRIBUTION WIDTH 14.6 % (11.5-14.5); WHITE BLOOD COUNT 5.1 10^3/uL (4.0-10.0)
[2017-09-24] MEDS: SUCRALFATE 1 GM TAB PO (06:39)
[2017-09-24] MEDS: LEVOTHYROXINE 37.5MCG PER 1/2TAB (0.0375MG) PO (06:39)
[2017-09-24 06:59] LABS: ANION GAP 11 MEQ/L (8-16); BLOOD UREA NITROGEN 34 MG/DL (7-18); CALCIUM LEVEL 8.4 MG/DL (8.8-10.2); CARBON DIOXIDE LEVEL 23 MEQ/L (21-32); CHLORIDE LEVEL 106 MEQ/L (98-107); CREATININE FOR GFR 1.05 MG/DL (0.55-1.30); GLOMERULAR FILTRATION RATE 53.7 (>32); GLUCOSE, FASTING 167 MG/DL (70-100); MAGNESIUM LEVEL 2.2 MG/DL (1.8-2.4); POTASSIUM SERUM 3.7 MEQ/L (3.5-5.1); SODIUM LEVEL 140 MEQ/L (136-145)
[2017-09-24] MEDS: DABIGATRAN ETEXILATE 75 MG CAP (PRADAXA) PO (09:00)
[2017-09-24] MEDS: ASPIRIN 81 MG ENTERIC TAB PO (09:58)
[2017-09-24] MEDS: FERROUS SULFATE 325MG TAB PO (09:59)
[2017-09-24] MEDS: ALLOPURINOL 300 MG TAB PO (09:59)
[2017-09-24] MEDS: MAGNESIUM OXIDE 400 MG TAB (MAG-OX) PO (09:59)
[2017-09-24] MEDS: PANTOPRAZOLE 40MG TAB (PROTONIX) PO (09:59)
[2017-09-24] MEDS: LORATADINE 10 MG TAB PO (09:59)
[2017-09-24] MEDS: METOPROLOL SUCC (TopROL XL) 100MG *XL* TAB PO (10:00)
[2017-09-24] MEDS: HYDROXYCHLOROQUINE 200 MG TAB PO (10:07)
[2017-09-24] MEDS: HumaLOG INSULIN (NovoLOG) PER UNIT SC (10:08)
[2017-09-24 11:13] LABS: FOLATE 9.8 NG/ML (>5.4); VITAMIN B12 LEVEL 174 PG/ML (247-911)
[2017-09-25 08:07] LABS: HAPTOGLOBIN 240 mg/dL (34-200)
[2017-09-25 11:13] LABS: BEDSIDE GLUCOSE 266 MG/DL (83-110)
== END 2017-09-24 12:40 | disposition home health service (06) | DRG 563 ==
LOC: M MSPAV 09-19 15:54 → M ED 06:01 → M ED INP 11:27 → M MSPAV 13:25
DX: S82.444A Nondisplaced spiral fracture of shaft of right fibula, initial encounter for closed fracture (principal); N17.9 Acute kidney failure, unspecified; I50.32 Chronic diastolic (congestive) heart failure; K92.2 Gastrointestinal hemorrhage, unspecified; E78.5 Hyperlipidemia, unspecified; D50.9 Iron deficiency anemia, unspecified; E03.9 Hypothyroidism, unspecified; I48.2 Chronic atrial fibrillation; E11.9 Type 2 diabetes mellitus without complications; Z96.653 Presence of artificial knee joint, bilateral; Z95.0 Presence of cardiac pacemaker; K27.9 Peptic ulcer, site unspecified, unspecified as acute or chronic, without hemorrhage or perforation; Z88.5 Allergy status to narcotic agent; Z79.82 Long term (current) use of aspirin; Z79.01 Long term (current) use of anticoagulants; Z79.84 Long term (current) use of oral hypoglycemic drugs; Z79.899 Other long term (current) drug therapy; W01.0XXA Fall on same level from slipping, tripping and stumbling without subsequent striking against object, initial encounter; Y92.009 Unspecified place in unspecified non-institutional (private) residence as the place of occurrence of the external cause

== ENCOUNTER → 2017-09-26 | Outpatient (REF) | payer MEDICARE, OTHER ==
[2017-09-26 12:35] LABS: HEMATOCRIT 27.7 % (36.0-47.0); HEMOGLOBIN 8.8 g/dl (12.0-16.0); MEAN CORPUSCULAR HEMOGLOBIN 31.4 pg (27.0-33.0); MEAN CORPUSCULAR HGB CONC 31.8 g/dl (32.0-36.5); MEAN CORPUSCULAR VOLUME 98.9 fl (80.0-96.0); PLATELET COUNT, AUTOMATED 267 10^3/uL (150-450); RED CELL DISTRIBUTION WIDTH 15.1 % (11.5-14.5); WHITE BLOOD COUNT 6.6 10^3/uL (4.0-10.0)
== END ==
LOC: M LABDRWAD 12:16
DX: K92.2 Gastrointestinal hemorrhage, unspecified (principal)
CPT/HCPCS: 85027

== ENCOUNTER → 2017-09-28 | Outpatient (REF) | payer MEDICARE, OTHER ==
[2017-09-28 19:45] LABS: HEMATOCRIT 30.3 % (36.0-47.0); HEMOGLOBIN 9.2 g/dl (12.0-16.0); MEAN CORPUSCULAR HEMOGLOBIN 30.8 pg (27.0-33.0); MEAN CORPUSCULAR HGB CONC 30.4 g/dl (32.0-36.5); MEAN CORPUSCULAR VOLUME 101.3 fl (80.0-96.0); PLATELET COUNT, AUTOMATED 303 10^3/uL (150-450); RED BLOOD COUNT 2.99 10^6/uL (4.00-5.40); RED CELL DISTRIBUTION WIDTH 15.4 % (11.5-14.5); WHITE BLOOD COUNT 6.7 10^3/uL (4.0-10.0)
== END ==
LOC: M LABDRWAD 19:29
DX: K92.2 Gastrointestinal hemorrhage, unspecified (principal)
CPT/HCPCS: 85027

== ENCOUNTER → 2017-09-30 | Outpatient (CLI) | payer MEDICARE, OTHER ==
[2017-09-30 18:06] LABS: HEMOGLOBIN 9.1 g/dl (12.0-16.0); MEAN CORPUSCULAR HEMOGLOBIN 30.8 pg (27.0-33.0); MEAN CORPUSCULAR HGB CONC 30.3 g/dl (32.0-36.5); MEAN CORPUSCULAR VOLUME 101.7 fl (80.0-96.0); PLATELET COUNT, AUTOMATED 291 10^3/uL (150-450); RED BLOOD COUNT 2.95 10^6/uL (4.00-5.40); WHITE BLOOD COUNT 5.3 10^3/uL (4.0-10.0)
== END ==
LOC: M ADAMS 10:47
DX: K92.2 Gastrointestinal hemorrhage, unspecified (principal)
CPT/HCPCS: 85027

== ENCOUNTER → 2017-11-28 | Outpatient (REF) | payer MEDICARE, OTHER ==
[2017-11-28 13:29] LABS: APPEARANCE, URINE CLEAR (CLEAR); BACTERIA, URINE AUTO NEGATIVE (NEGATIVE); BILIRUBIN, URINE AUTO NEGATIVE (NEGATIVE); BLOOD, URINE BLOOD NEGATIVE (NEGATIVE); COLOR, URINE STRAW (YELLOW); GLUCOSE, URINE (UA) AUTO NEGATIVE (NEGATIVE); KETONE, URINE AUTO NEGATIVE (NEGATIVE); LEUKOCYTE ESTERASE, URINE AUTO 2+ (NEGATIVE); NITRITE, URINE AUTO NEGATIVE (NEGATIVE); PROTEIN, URINE AUTO NEGATIVE (NEGATIVE); RBC, URINE AUTO 2 /HPF (0-3); SPECIFIC GRAVITY URINE AUTO 1.008 (1.002-1.035); SQUAMOUS EPITHELIAL CELL UR AU 1 /HPF (0-6); UROBILINOGEN, URINE AUTO 0.2 mg/dL (0.0-2.0); WBC, URINE AUTO 2 /HPF (0-3)
[2017-11-28 13:41] LABS: FERRITIN 17 NG/ML (8-252); IRON (FE) 30 UG/DL (50-170); PERCENT SATURATION 5.9 % (13.2-45.0); TOTAL IRON BINDING CAPACITY 510 UG/DL (250-450)
[2017-11-28 13:44] LABS: VITAMIN B12 LEVEL 283 PG/ML (247-911)
[2017-11-30 14:32] LABS: PRETREATED FOLATE FOR RBCFOL 10.7 NG/ML; RBC FOLATE 864.2 NG/ML (280-791)
[2017-12-04 00:06] LABS: HOMOCYST(E)INE SERUM 51.9 umol/L (0.0-15.0); METHYLMALONIC ACID 589 nmol/L (0-378)
[2017-12-04 00:06] LABS: SOLUBLE TRANSFERRIN RECEPTOR 43.3 nmol/L (12.2-27.3)
== END ==
LOC: M LAB REF 12:57
DX: D50.9 Iron deficiency anemia, unspecified (principal)
CPT/HCPCS: 83550

== ENCOUNTER 2017-12-17 10:50 | Inpatient (IN) | payer MEDICARE, OTHER ==
[2017-12-17] MEDS: NS 1,000 ML IV (12:30)
[2017-12-17 12:35] LABS: BASO % 0.6 % (0.0-1.0); EOS # 0.1 10^3/uL (0.0-0.50); EOS % 1.3 % (0.0-3.0); HEMOGLOBIN 7.9 g/dl (12.0-15.5); IMMATURE GRANULOCYTE % 1.2 % (0-3.0); LYMPH # 0.8 10^3/uL (1.5-4.5); LYMPH % 12.2 % (24.0-44.0); MEAN CORPUSCULAR HEMOGLOBIN 27.6 pg (27.0-33.0); MEAN CORPUSCULAR HGB CONC 30.4 g/dl (32.0-36.5); MEAN CORPUSCULAR VOLUME 90.9 fl (80.0-96.0); MONO # 0.7 10^3/uL (0.0-0.8); MONO % 10.6 % (0.0-5.0); NEUTROPHILS % 74.1 % (36.0-66.0); PLATELET COUNT, AUTOMATED 362 10^3/uL (150-450); RED BLOOD COUNT 2.86 10^6/uL (4.00-5.40); RED CELL DISTRIBUTION WIDTH 15.3 % (11.5-14.5); VENOUS BASE EXCESS -7.4 (-2.0-2.0); VENOUS HCO3 18.1 MEQ/L (23.0-27.0); VENOUS O2 SATURATION 55.5 % (60.0-80.0); VENOUS PARTIAL PRESSURE CO2 36.4 mmHg (38.0-50.0); VENOUS PARTIAL PRESSURE O2 32.9 mmHg (30.0-50.0); VENOUS PH 7.315 UNITS (7.330-7.430); VENOUS STANDARD HCO3 17.8 MEQ/L; VENOUS TOTAL CO2 19.2 MEQ/L (24.0-28.0); WHITE BLOOD COUNT 6.7 10^3/uL (4.0-10.0)
[2017-12-17] MEDS: IPRATROPIUM 0.5MG/ALBUTEROL 2.5MG INH SOL UD 3ML (DUONEB)(J7620) NEB ×2 (12:40→12:56)
[2017-12-17 12:48] LABS: INR 1.51; PROTHROMBIN TIME 18.6 SECONDS (12.4-14.5)
[2017-12-17 13:09] LABS: LACTIC ACID SEPSIS PROTOCOL 3.1 MMOL/L (0.4-2.0)
[2017-12-17 13:24] LABS: ALBUMIN 3.5 GM/DL (3.2-5.2); ALBUMIN/GLOBULIN RATIO 1.03 (1.00-1.93); ALKALINE PHOSPHATASE 105 U/L (45-117); ALT/SGPT 14 U/L (12-78); ANION GAP 13 MEQ/L (8-16); AST/SGOT 23 U/L (7-37); BILIRUBIN,DIRECT 0.2 MG/DL (0.0-0.2); BILIRUBIN,TOTAL 0.4 MG/DL (0.2-1.0); BLOOD UREA NITROGEN 69 MG/DL (7-18); CALCIUM LEVEL 9.1 MG/DL (8.8-10.2); CARBON DIOXIDE LEVEL 20 MEQ/L (21-32); CHLORIDE LEVEL 106 MEQ/L (98-107); CPK CREATINE PHOSPHOKINASE 78 U/L (26-192); GLUCOSE, FASTING 88 MG/DL (70-100); SODIUM LEVEL 139 MEQ/L (136-145); TOTAL PROTEIN 6.9 GM/DL (6.4-8.2); TROPONIN I 0.02 NG/ML (< 0.10)
[2017-12-17 13:25] LABS: CK-MB VALUE MASS 5.4 NG/ML (<3.6); MB/CK RELATIVE INDEX 6.92 (< OR =4); NT-PRO BNP 4364 PG/ML (<450)
[2017-12-17 13:40] LABS: POTASSIUM SERUM 5.9 MEQ/L (3.5-5.1)
[2017-12-17] MEDS ORDERED: DEXTROSE 50% 50 ML SYRINGE IV (14:45)
[2017-12-17] MEDS ORDERED: GLUCAGON FOR INJ 1 MG VIAL (J1610) SC (14:45)
[2017-12-17] MEDS ORDERED: FLUTICASONE PROP 0.05% NASAL SPRAY 16 GM (FLONASE) (14:45)
[2017-12-17] MEDS ORDERED: ONDANSETRON 4MG/2ML VIAL (J2405) IV (14:45)
[2017-12-17] MEDS ORDERED: GLUCOSE 4 GM CHEW TABLET PO (14:45)
[2017-12-17 15:23] LABS: APPEARANCE, URINE HAZY (CLEAR); BACTERIA, URINE AUTO 1+ (NEGATIVE); BILIRUBIN, URINE AUTO NEGATIVE (NEGATIVE); BLOOD, URINE BLOOD NEGATIVE (NEGATIVE); COLOR, URINE YELLOW (YELLOW); GLUCOSE, URINE (UA) AUTO NEGATIVE (NEGATIVE); KETONE, URINE AUTO NEGATIVE (NEGATIVE); LEUKOCYTE ESTERASE, URINE AUTO 2+ (NEGATIVE); NITRITE, URINE AUTO NEGATIVE (NEGATIVE); PROTEIN, URINE AUTO NEGATIVE (NEGATIVE); RBC, URINE AUTO 1 /HPF (0-3); SQUAMOUS EPITHELIAL CELL UR AU 1 /HPF (0-6); UROBILINOGEN, URINE AUTO 0.2 mg/dL (0.0-2.0); WBC, URINE AUTO 14 /HPF (0-3)
[2017-12-17 15:40] LABS: CREATININE,RANDOM URINE 42.4 MG/DL; POTASSIUM RANDOM URINE 43.8 MEQ/L; SODIUM,RANDOM URINE 51 MEQ/L
[2017-12-17 16:06] LABS: FOLATE 17.2 NG/ML; VITAMIN B12 LEVEL 342 PG/ML
[2017-12-17 16:07] LABS: FERRITIN 243 NG/ML (8-252); IRON (FE) 55 UG/DL (50-170); PERCENT SATURATION 11.2 % (13.2-45.0); TOTAL IRON BINDING CAPACITY 491 UG/DL (250-450)
[2017-12-17 16:15] LABS: OSMOLALITY URINE 349 MOSM/KG (500-800)
[2017-12-17] MEDS: HumaLOG INSULIN (NovoLOG) PER UNIT SC ×2 (17:30→21:13)
[2017-12-17 17:31] LABS: HEMATOCRIT 26.4 % (36.0-47.0); HEMOGLOBIN 7.8 g/dl (12.0-15.5); MEAN CORPUSCULAR HEMOGLOBIN 27.4 pg (27.0-33.0); MEAN CORPUSCULAR HGB CONC 29.5 g/dl (32.0-36.5); MEAN CORPUSCULAR VOLUME 92.6 fl (80.0-96.0); PLATELET COUNT, AUTOMATED 369 10^3/uL (150-450); RED BLOOD COUNT 2.85 10^6/uL (4.00-5.40); RED CELL DISTRIBUTION WIDTH 15.3 % (11.5-14.5); WHITE BLOOD COUNT 5.9 10^3/uL (4.0-10.0)
[2017-12-17 17:48] LABS: ALBUMIN 3.3 GM/DL (3.2-5.2); ALBUMIN/GLOBULIN RATIO 0.94 (1.00-1.93); ALKALINE PHOSPHATASE 100 U/L (45-117); ALT/SGPT 12 U/L (12-78); ANION GAP 13 MEQ/L (8-16); AST/SGOT 19 U/L (7-37); BILIRUBIN,TOTAL 0.4 MG/DL (0.2-1.0); BLOOD UREA NITROGEN 70 MG/DL (7-18); CALCIUM LEVEL 8.7 MG/DL (8.8-10.2); CARBON DIOXIDE LEVEL 20 MEQ/L (21-32); CHLORIDE LEVEL 107 MEQ/L (98-107); CK-MB VALUE MASS 4.5 NG/ML (<3.6); CPK CREATINE PHOSPHOKINASE 67 U/L (26-192); CREATININE FOR GFR 2.86 MG/DL (0.55-1.30); GLOMERULAR FILTRATION RATE 16.9 (>32); GLUCOSE, FASTING 72 MG/DL (70-100); MAGNESIUM LEVEL 1.8 MG/DL (1.8-2.4); MB/CK RELATIVE INDEX 6.71 (< OR =4); SODIUM LEVEL 140 MEQ/L (136-145); TOTAL PROTEIN 6.8 GM/DL (6.4-8.2); TROPONIN I 0.03 NG/ML (< 0.10)
[2017-12-17 17:52] LABS: POTASSIUM SERUM 6.3 MEQ/L (3.5-5.1)
[2017-12-17] MEDS ORDERED: NS 500 ML IV (18:15)
[2017-12-17 18:57] LABS: BEDSIDE GLUCOSE 73 MG/DL (83-110)
[2017-12-17] MEDS: SUCRALFATE 1 GM TAB PO ×3 (19:00→21:30)
[2017-12-17] MEDS: SOD POLYSTYRENE SULFONATE SUSP 15 GM/60 ML UD PO (19:13)
[2017-12-17 19:47] LABS: ANION GAP 13 MEQ/L (8-16); BLOOD UREA NITROGEN 67 MG/DL (7-18); CALCIUM LEVEL 8.7 MG/DL (8.8-10.2); CARBON DIOXIDE LEVEL 19 MEQ/L (21-32); CHLORIDE LEVEL 106 MEQ/L (98-107); CREATININE FOR GFR 2.81 MG/DL (0.55-1.30); GLOMERULAR FILTRATION RATE 17.2 (>32); GLUCOSE, FASTING 70 MG/DL (70-100); SODIUM LEVEL 138 MEQ/L (136-145)
[2017-12-17 20:02] LABS: POTASSIUM SERUM 5.7 MEQ/L (3.5-5.1)
[2017-12-17 20:02] LABS: LACTIC ACID SEPSIS PROTOCOL 3.1 MMOL/L (0.4-2.0)
[2017-12-17 20:34] LABS: IMMEDIATE SPIN CROSSMATCH 1 2
[2017-12-17] MEDS: GEMFIBROZIL 600 MG TAB PO (21:25)
[2017-12-17] MEDS: ALLOPURINOL 300 MG TAB PO (21:26)
[2017-12-17] MEDS: HYDROXYCHLOROQUINE 200 MG TAB PO (21:26)
[2017-12-17] MEDS: METOPROLOL SUCC (TopROL XL) 50MG **XL** TAB PO (21:26)
[2017-12-17 21:44] LABS: BEDSIDE GLUCOSE 110 MG/DL (83-110)
[2017-12-17 23:34] LABS: CHLORIDE,RANDOM URINE 77 MEQ/L
[2017-12-17 23:34] LABS: TOTAL PROTEIN,RANDOM URINE 18.9 MG/DL (0.0-12.0)
[2017-12-17] MEDS: PANTOPRAZOLE 40MG INJ (PROTONIX) (C9113) IV (23:45)
[2017-12-17] MEDS: FUROSEMIDE 40 MG/4 ML VIAL (J1940) IV (23:45)
[2017-12-18 01:18] LABS: HEMATOCRIT 29.7 % (36.0-47.0); HEMOGLOBIN 9.3 g/dl (12.0-15.5); MEAN CORPUSCULAR HEMOGLOBIN 28.4 pg (27.0-33.0); MEAN CORPUSCULAR HGB CONC 31.3 g/dl (32.0-36.5); MEAN CORPUSCULAR VOLUME 90.5 fl (80.0-96.0); PLATELET COUNT, AUTOMATED 308 10^3/uL (150-450); RED BLOOD COUNT 3.28 10^6/uL (4.00-5.40); RED CELL DISTRIBUTION WIDTH 15.3 % (11.5-14.5); WHITE BLOOD COUNT 5.7 10^3/uL (4.0-10.0)
[2017-12-18 01:42] LABS: ANION GAP 14 MEQ/L (8-16); BLOOD UREA NITROGEN 65 MG/DL (7-18); CARBON DIOXIDE LEVEL 19 MEQ/L (21-32); CHLORIDE LEVEL 108 MEQ/L (98-107); CK-MB VALUE MASS 3.9 NG/ML (<3.6); CPK CREATINE PHOSPHOKINASE 73 U/L (26-192); GLOMERULAR FILTRATION RATE 18.1 (>32); GLUCOSE, FASTING 90 MG/DL (70-100); MB/CK RELATIVE INDEX 5.34 (< OR =4); SODIUM LEVEL 141 MEQ/L (136-145); TROPONIN I 0.03 NG/ML (< 0.10)
[2017-12-18 05:26] LABS: HEMATOCRIT 29.3 % (36.0-47.0); HEMOGLOBIN 9.3 g/dl (12.0-15.5); MEAN CORPUSCULAR HEMOGLOBIN 28.4 pg (27.0-33.0); MEAN CORPUSCULAR HGB CONC 31.7 g/dl (32.0-36.5); MEAN CORPUSCULAR VOLUME 89.3 fl (80.0-96.0); PLATELET COUNT, AUTOMATED 321 10^3/uL (150-450); RED BLOOD COUNT 3.28 10^6/uL (4.00-5.40); RED CELL DISTRIBUTION WIDTH 15.5 % (11.5-14.5); WHITE BLOOD COUNT 5.2 10^3/uL (4.0-10.0)
[2017-12-18] MEDS: LEVOTHYROXINE 37.5MCG PER 1/2TAB (0.0375MG) PO (05:44)
[2017-12-18 05:50] LABS: ALBUMIN 3.2 GM/DL (3.2-5.2); ALBUMIN/GLOBULIN RATIO 0.91 (1.00-1.93); ALKALINE PHOSPHATASE 90 U/L (45-117); ALT/SGPT 14 U/L (12-78); ANION GAP 12 MEQ/L (8-16); AST/SGOT 23 U/L (7-37); BILIRUBIN,TOTAL 0.5 MG/DL (0.2-1.0); BLOOD UREA NITROGEN 69 MG/DL (7-18); CALCIUM LEVEL 8.8 MG/DL (8.8-10.2); CARBON DIOXIDE LEVEL 20 MEQ/L (21-32); CHLORIDE LEVEL 110 MEQ/L (98-107); CREATININE FOR GFR 2.57 MG/DL (0.55-1.30); GLOMERULAR FILTRATION RATE 19.1 (>32); GLUCOSE, FASTING 87 MG/DL (70-100); POTASSIUM SERUM 4.8 MEQ/L (3.5-5.1); SODIUM LEVEL 142 MEQ/L (136-145); TOTAL PROTEIN 6.7 GM/DL (6.4-8.2)
[2017-12-18 06:02] LABS: LACTIC ACID SEPSIS PROTOCOL 1.7 MMOL/L (0.4-2.0)
[2017-12-18] MEDS: SUCRALFATE 1 GM TAB PO ×4 (06:34→21:45)
[2017-12-18] MEDS: HumaLOG INSULIN (NovoLOG) PER UNIT SC ×4 (07:30→20:26)
[2017-12-18] MEDS: METOPROLOL SUCC (TopROL XL) 50MG **XL** TAB PO ×2 (09:22→21:46)
[2017-12-18] MEDS: GEMFIBROZIL 600 MG TAB PO ×2 (09:22→21:46)
[2017-12-18] MEDS: HYDROXYCHLOROQUINE 200 MG TAB PO ×2 (09:23→21:46)
[2017-12-18] MEDS: LORATADINE 10 MG TAB PO (09:23)
[2017-12-18] MEDS: PANTOPRAZOLE 40MG INJ (PROTONIX) (C9113) IV ×2 (09:23→21:46)
[2017-12-18 11:45] LABS: TROPONIN I 0.03 NG/ML (< 0.10)
[2017-12-18 11:52] LABS: CK-MB VALUE MASS 3.3 NG/ML (<3.6); CPK CREATINE PHOSPHOKINASE 57 U/L (26-192); MB/CK RELATIVE INDEX 5.78 (< OR =4)
[2017-12-18 12:03] LABS: HEMATOCRIT 29.7 % (36.0-47.0); HEMOGLOBIN 9.2 g/dl (12.0-15.5); MEAN CORPUSCULAR HEMOGLOBIN 28.1 pg (27.0-33.0); MEAN CORPUSCULAR VOLUME 90.8 fl (80.0-96.0); PLATELET COUNT, AUTOMATED 294 10^3/uL (150-450); RED BLOOD COUNT 3.27 10^6/uL (4.00-5.40); RED CELL DISTRIBUTION WIDTH 15.9 % (11.5-14.5); WHITE BLOOD COUNT 4.7 10^3/uL (4.0-10.0)
[2017-12-18] MEDS: VANCOMYCIN ORAL SOL 250MG/5ML ORAL SYRINGE PO ×3 (12:18→23:34)
[2017-12-18] MEDS ORDERED: BISACODYL 5 MG TAB PO ×2 (15:30→18:00)
[2017-12-18 17:01] LABS: BEDSIDE GLUCOSE 97 MG/DL (83-110)
[2017-12-18 17:01] LABS: BEDSIDE GLUCOSE 111 MG/DL (83-110)
[2017-12-18 18:00] LABS: HEMATOCRIT 29.3 % (36.0-47.0); HEMOGLOBIN 9.1 g/dl (12.0-15.5); MEAN CORPUSCULAR HEMOGLOBIN 28.1 pg (27.0-33.0); MEAN CORPUSCULAR HGB CONC 31.1 g/dl (32.0-36.5); MEAN CORPUSCULAR VOLUME 90.4 fl (80.0-96.0); PLATELET COUNT, AUTOMATED 291 10^3/uL (150-450); RED BLOOD COUNT 3.24 10^6/uL (4.00-5.40); RED CELL DISTRIBUTION WIDTH 15.9 % (11.5-14.5); WHITE BLOOD COUNT 4.6 10^3/uL (4.0-10.0)
[2017-12-18] MEDS: GOLYTELY SOLN 4000 ML BTL PO (18:00)
[2017-12-18] MEDS: BISACODYL 5 MG TAB PO (18:09)
[2017-12-18 20:26] LABS: BEDSIDE GLUCOSE 123 MG/DL (83-110)
[2017-12-18] MEDS: ALLOPURINOL 300 MG TAB PO (21:46)
[2017-12-19 00:42] LABS: HEMATOCRIT 30.5 % (36.0-47.0); HEMOGLOBIN 9.5 g/dl (12.0-15.5); MEAN CORPUSCULAR HEMOGLOBIN 28.2 pg (27.0-33.0); MEAN CORPUSCULAR HGB CONC 31.1 g/dl (32.0-36.5); MEAN CORPUSCULAR VOLUME 90.5 fl (80.0-96.0); PLATELET COUNT, AUTOMATED 317 10^3/uL (150-450); RED BLOOD COUNT 3.37 10^6/uL (4.00-5.40); RED CELL DISTRIBUTION WIDTH 16.2 % (11.5-14.5); WHITE BLOOD COUNT 5.3 10^3/uL (4.0-10.0)
[2017-12-19 05:24] LABS: HEMATOCRIT 27.9 % (36.0-47.0); HEMOGLOBIN 8.7 g/dl (12.0-15.5); MEAN CORPUSCULAR HEMOGLOBIN 28.1 pg (27.0-33.0); MEAN CORPUSCULAR HGB CONC 31.2 g/dl (32.0-36.5); PLATELET COUNT, AUTOMATED 258 10^3/uL (150-450); WHITE BLOOD COUNT 4.3 10^3/uL (4.0-10.0)
[2017-12-19 05:42] LABS: ALBUMIN 2.8 GM/DL (3.2-5.2); ALBUMIN/GLOBULIN RATIO 0.82 (1.00-1.93); ALKALINE PHOSPHATASE 83 U/L (45-117); ALT/SGPT 11 U/L (12-78); AST/SGOT 19 U/L (7-37); BILIRUBIN,TOTAL 0.4 MG/DL (0.2-1.0); BLOOD UREA NITROGEN 54 MG/DL (7-18); CALCIUM LEVEL 8.4 MG/DL (8.8-10.2); CARBON DIOXIDE LEVEL 23 MEQ/L (21-32); CHLORIDE LEVEL 110 MEQ/L (98-107); CREATININE FOR GFR 1.99 MG/DL (0.55-1.30); GLOMERULAR FILTRATION RATE 25.7 (>32); GLUCOSE, FASTING 102 MG/DL (70-100); TOTAL PROTEIN 6.2 GM/DL (6.4-8.2)
[2017-12-19 05:52] LABS: ANION GAP 11 MEQ/L (8-16); SODIUM LEVEL 144 MEQ/L (136-145)
[2017-12-19 05:55] LABS: POTASSIUM SERUM 3.2 MEQ/L (3.5-5.1)
[2017-12-19] MEDS: VANCOMYCIN ORAL SOL 250MG/5ML ORAL SYRINGE PO ×4 (05:57→23:13)
[2017-12-19] MEDS: LEVOTHYROXINE 37.5MCG PER 1/2TAB (0.0375MG) PO (05:57)
[2017-12-19] MEDS: MAGNESIUM CITRATE 300 ML BTL PO (05:57)
[2017-12-19] MEDS: SUCRALFATE 1 GM TAB PO ×4 (07:00→20:32)
[2017-12-19] MEDS: POTASSIUM CHLORIDE 10 MEQ SR TABLET PO ×2 (07:01→08:00)
[2017-12-19] MEDS: KCL 10MEQ/100ML SWI (KRUN) 10 MEQ in APPROPRIATE DILUENT 1 EA IV (07:01)
[2017-12-19 07:04] LABS: MAGNESIUM LEVEL 1.6 MG/DL (1.8-2.4)
[2017-12-19] MEDS: HumaLOG INSULIN (NovoLOG) PER UNIT SC ×4 (07:30→20:36)
[2017-12-19] MEDS: HYDROXYCHLOROQUINE 200 MG TAB PO ×2 (08:00→20:33)
[2017-12-19] MEDS: GEMFIBROZIL 600 MG TAB PO ×2 (08:00→20:34)
[2017-12-19] MEDS: LORATADINE 10 MG TAB PO (08:00)
[2017-12-19] MEDS: PANTOPRAZOLE 40MG INJ (PROTONIX) (C9113) IV ×2 (08:00→20:30)
[2017-12-19] MEDS: METOPROLOL SUCC (TopROL XL) 50MG **XL** TAB PO ×2 (08:28→20:35)
[2017-12-19] MEDS ORDERED: POTASSIUM CHLORIDE 10 MEQ SR TABLET PO (11:00)
[2017-12-19 12:11] LABS: HEMOGLOBIN 9.4 g/dl (12.0-15.5); MEAN CORPUSCULAR HEMOGLOBIN 27.6 pg (27.0-33.0); MEAN CORPUSCULAR HGB CONC 30.3 g/dl (32.0-36.5); MEAN CORPUSCULAR VOLUME 91.2 fl (80.0-96.0); PLATELET COUNT, AUTOMATED 297 10^3/uL (150-450); RED CELL DISTRIBUTION WIDTH 16.3 % (11.5-14.5); WHITE BLOOD COUNT 4.5 10^3/uL (4.0-10.0)
[2017-12-19 12:17] LABS: BEDSIDE GLUCOSE 102 MG/DL (83-110)
[2017-12-19] MEDS ORDERED: PROPOFOL 200 MG/20 ML VIAL As Ordered ×2 (14:13)
[2017-12-19] MEDS ORDERED: BISACODYL 5 MG TAB PO (16:00)
[2017-12-19 17:07] LABS: BEDSIDE GLUCOSE 103 MG/DL (83-110)
[2017-12-19] MEDS: ALLOPURINOL 300 MG TAB PO (20:34)
[2017-12-19 20:44] LABS: BEDSIDE GLUCOSE 117 MG/DL (83-110)
[2017-12-20] MEDS: LEVOTHYROXINE 37.5MCG PER 1/2TAB (0.0375MG) PO (06:06)
[2017-12-20] MEDS: VANCOMYCIN ORAL SOL 250MG/5ML ORAL SYRINGE PO ×2 (06:06→12:31)
[2017-12-20 06:41] LABS: ALBUMIN 2.9 GM/DL (3.2-5.2); ALBUMIN/GLOBULIN RATIO 0.85 (1.00-1.93); ALKALINE PHOSPHATASE 87 U/L (45-117); ALT/SGPT 11 U/L (12-78); ANION GAP 9 MEQ/L (8-16); AST/SGOT 20 U/L (7-37); BILIRUBIN,TOTAL 0.4 MG/DL (0.2-1.0); BLOOD UREA NITROGEN 42 MG/DL (7-18); CALCIUM LEVEL 8.3 MG/DL (8.8-10.2); CARBON DIOXIDE LEVEL 24 MEQ/L (21-32); CHLORIDE LEVEL 112 MEQ/L (98-107); CREATININE FOR GFR 1.62 MG/DL (0.55-1.30); GLOMERULAR FILTRATION RATE 32.5 (>32); GLUCOSE, FASTING 92 MG/DL (70-100); POTASSIUM SERUM 3.7 MEQ/L (3.5-5.1); SODIUM LEVEL 145 MEQ/L (136-145); TOTAL PROTEIN 6.3 GM/DL (6.4-8.2)
[2017-12-20] MEDS: HumaLOG INSULIN (NovoLOG) PER UNIT SC ×2 (08:00→12:30)
[2017-12-20] MEDS: GEMFIBROZIL 600 MG TAB PO (08:08)
[2017-12-20] MEDS: PANTOPRAZOLE 40MG INJ (PROTONIX) (C9113) IV (08:08)
[2017-12-20] MEDS: SUCRALFATE 1 GM TAB PO ×2 (08:09→12:29)
[2017-12-20] MEDS: LORATADINE 10 MG TAB PO (08:09)
[2017-12-20] MEDS: HYDROXYCHLOROQUINE 200 MG TAB PO (08:09)
[2017-12-20] MEDS: METOPROLOL SUCC (TopROL XL) 50MG **XL** TAB PO (08:10)
[2017-12-20 08:53] LABS: MAGNESIUM LEVEL 1.7 MG/DL (1.8-2.4)
[2017-12-20] MEDS ORDERED: BISACODYL 5 MG TAB PO (09:00)
[2017-12-20 11:33] LABS: BEDSIDE GLUCOSE 132 MG/DL (83-110)
== END 2017-12-20 16:57 | disposition home or self-care (01) | DRG 372 ==
LOC: M MSPAV 12-19 23:17 → M ED 10:50 → M ED INP 16:52 → M PCU 18:35
PROC: 0DJ08ZZ Inspection of Upper Intestinal Tract, Via Natural or Artificial Opening Endoscopic (ICD-10-PCS; principal; 2017-12-19 13:15)
PROC: 0DJD8ZZ Inspection of Lower Intestinal Tract, Via Natural or Artificial Opening Endoscopic (ICD-10-PCS; 2017-12-19 13:15)
PROC: 30233N1 Transfusion of Nonautologous Red Blood Cells into Peripheral Vein, Percutaneous Approach (ICD-10-PCS; 2017-12-19 13:53)
DX: A04.72 Enterocolitis due to Clostridium difficile, not specified as recurrent (principal); N17.9 Acute kidney failure, unspecified; I50.32 Chronic diastolic (congestive) heart failure; D62 Acute posthemorrhagic anemia; E87.5 Hyperkalemia; I48.2 Chronic atrial fibrillation; K57.90 Diverticulosis of intestine, part unspecified, without perforation or abscess without bleeding; E78.5 Hyperlipidemia, unspecified; E83.42 Hypomagnesemia; E87.6 Hypokalemia; K44.9 Diaphragmatic hernia without obstruction or gangrene; K64.3 Fourth degree hemorrhoids; D50.9 Iron deficiency anemia, unspecified; E03.9 Hypothyroidism, unspecified; E11.9 Type 2 diabetes mellitus without complications; M10.9 Gout, unspecified; N18.3 Chronic kidney disease, stage 3 (moderate); Z96.653 Presence of artificial knee joint, bilateral; Z90.710 Acquired absence of both cervix and uterus; Z90.49 Acquired absence of other specified parts of digestive tract; Z95.0 Presence of cardiac pacemaker; Z79.82 Long term (current) use of aspirin; Z79.01 Long term (current) use of anticoagulants; Z79.84 Long term (current) use of oral hypoglycemic drugs; Z79.899 Other long term (current) drug therapy; Z91.040 Latex allergy status; Z88.5 Allergy status to narcotic agent

== ENCOUNTER 2018-01-07 04:29 | Inpatient (IN) | payer MEDICARE, OTHER ==
[2018-01-07 05:39] LABS: BASO % 0.4 % (0.0-1.0); EOS % 0.6 % (0.0-3.0); HEMATOCRIT 32.6 % (36.0-47.0); HEMOGLOBIN 10.1 g/dl (12.0-15.5); IMMATURE GRANULOCYTE % 0.6 % (0-3.0); LYMPH # 0.4 10^3/uL (1.5-4.5); MEAN CORPUSCULAR HEMOGLOBIN 28.5 pg (27.0-33.0); MEAN CORPUSCULAR VOLUME 91.8 fl (80.0-96.0); MONO # 0.5 10^3/uL (0.0-0.8); MONO % 10.6 % (0.0-5.0); NEUTROPHILS % 79.8 % (36.0-66.0); PLATELET COUNT, AUTOMATED 294 10^3/uL (150-450); RED BLOOD COUNT 3.55 10^6/uL (4.00-5.40); RED CELL DISTRIBUTION WIDTH 19.2 % (11.5-14.5)
[2018-01-07] MEDS: LEVOTHYROXINE 75MCG TABLET (0.075MG) PO (06:00)
[2018-01-07 06:10] LABS: ANION GAP 11 MEQ/L (8-16); BLOOD UREA NITROGEN 27 MG/DL (7-18); CALCIUM LEVEL 8.1 MG/DL (8.8-10.2); CARBON DIOXIDE LEVEL 26 MEQ/L (21-32); CHLORIDE LEVEL 105 MEQ/L (98-107); CREATININE FOR GFR 1.25 MG/DL (0.55-1.30); GLOMERULAR FILTRATION RATE 43.9 (>32); GLUCOSE, FASTING 86 MG/DL (70-100); POTASSIUM SERUM 3.4 MEQ/L (3.5-5.1); SODIUM LEVEL 142 MEQ/L (136-145)
[2018-01-07 06:25] LABS: BEDSIDE GLUCOSE 65 MG/DL (83-110)
[2018-01-07 06:59] LABS: BEDSIDE GLUCOSE 49 MG/DL (83-110)
[2018-01-07 08:03] LABS: BEDSIDE GLUCOSE 77 MG/DL (83-110)
[2018-01-07 08:30] LABS: CK-MB VALUE MASS 5.5 NG/ML (<3.6); CPK CREATINE PHOSPHOKINASE 93 U/L (26-192); MB/CK RELATIVE INDEX 5.91 (< OR =4)
[2018-01-07 08:31] LABS: NT-PRO BNP 4204 PG/ML (<450); TROPONIN I 0.03 NG/ML (< 0.10)
[2018-01-07] MEDS: METOPROLOL SUCC (TopROL XL) 50MG **XL** TAB PO ×2 (09:00→20:49)
[2018-01-07 09:16] LABS: BEDSIDE GLUCOSE 65 MG/DL (83-110)
[2018-01-07 10:08] LABS: BEDSIDE GLUCOSE 95 MG/DL (83-110)
[2018-01-07] MEDS ORDERED: ACETAMINOPHEN TAB 650MG DOSE (2X325MG) PO (11:30)
[2018-01-07] MEDS ORDERED: GLUCOSE 4 GM CHEW TABLET PO (11:30)
[2018-01-07] MEDS ORDERED: BISACODYL 5 MG TAB PO (11:30)
[2018-01-07] MEDS ORDERED: GLUCAGON FOR INJ 1 MG VIAL (J1610) SC (11:30)
[2018-01-07] MEDS ORDERED: FLUTICASONE PROP 0.05% NASAL SPRAY 16 GM (FLONASE) (11:45)
[2018-01-07] MEDS ORDERED: METOPROLOL SUCC (TopROL XL) 100MG *XL* TAB PO (11:59)
[2018-01-07] MEDS: METOPROLOL SUCC (TopROL XL) 100MG *XL* TAB PO (12:27)
[2018-01-07] MEDS: POTASSIUM CHLORIDE 10 MEQ SR TABLET PO (12:28)
[2018-01-07] MEDS: OMEPRAZOLE 20 MG CAP PO (12:29)
[2018-01-07] MEDS: LORATADINE 10 MG TAB PO (12:29)
[2018-01-07] MEDS: SUCRALFATE 1 GM TAB PO ×3 (12:29→20:48)
[2018-01-07] MEDS: FUROSEMIDE 80 MG TAB PO (12:38)
[2018-01-07] MEDS: FERROUS SULFATE 325MG TAB PO ×2 (12:39→20:48)
[2018-01-07] MEDS: ASPIRIN 81 MG ENTERIC TAB PO (12:39)
[2018-01-07 13:58] LABS: ESTIMATED AVERAGE GLUCOSE 111 MG/DL (60-110); HEMOGLOBIN A1c 5.5 %
[2018-01-07] MEDS: GEMFIBROZIL 600 MG TAB PO ×2 (14:15→20:49)
[2018-01-07] MEDS: HYDROXYCHLOROQUINE 200 MG TAB PO ×2 (14:16→21:00)
[2018-01-07] MEDS: DABIGATRAN ETEXILATE 75 MG CAP (PRADAXA) PO ×2 (14:16→20:48)
[2018-01-07] MEDS: metOLazone 5 MG TAB PO (14:16)
[2018-01-07 15:41] LABS: BEDSIDE GLUCOSE 26 MG/DL (83-110)
[2018-01-07 15:49] LABS: BEDSIDE GLUCOSE 34 MG/DL (83-110)
[2018-01-07] MEDS: DEXTROSE 50% 50 ML SYRINGE IV ×3 (15:49→23:59)
[2018-01-07 16:17] LABS: BEDSIDE GLUCOSE 49 MG/DL (83-110)
[2018-01-07 17:13] LABS: BEDSIDE GLUCOSE 106 MG/DL (83-110)
[2018-01-07] MEDS: FUROSEMIDE 40 MG TAB PO (17:53)
[2018-01-07 19:12] LABS: BEDSIDE GLUCOSE 104 MG/DL (83-110)
[2018-01-07 20:03] LABS: BEDSIDE GLUCOSE 101 MG/DL (83-110)
[2018-01-07] MEDS: D5W/0.45% SODIUM CHLORIDE 1,000 ML IV (20:48)
[2018-01-07] MEDS: ALLOPURINOL 300 MG TAB PO (20:48)
[2018-01-07 22:03] LABS: BEDSIDE GLUCOSE 96 MG/DL (83-110)
[2018-01-07 23:57] LABS: BEDSIDE GLUCOSE 63 MG/DL (83-110)
[2018-01-08 00:20] LABS: BEDSIDE GLUCOSE 119 MG/DL (83-110)
[2018-01-08] MEDS: D10W 1,000 ML IV (00:30)
[2018-01-08 01:58] LABS: BEDSIDE GLUCOSE 91 MG/DL (83-110)
[2018-01-08 03:49] LABS: BEDSIDE GLUCOSE 59 MG/DL (83-110)
[2018-01-08] MEDS: DEXTROSE 50% 50 ML SYRINGE IV (03:49)
[2018-01-08 04:07] LABS: BEDSIDE GLUCOSE 159 MG/DL (83-110)
[2018-01-08 05:48] LABS: BASO % 0.7 % (0.0-1.0); EOS # 0.2 10^3/uL (0.0-0.50); EOS % 4.1 % (0.0-3.0); HEMATOCRIT 29.8 % (36.0-47.0); HEMOGLOBIN 9.2 g/dl (12.0-15.5); IMMATURE GRANULOCYTE % 0.5 % (0-3.0); LYMPH # 0.9 10^3/uL (1.5-4.5); LYMPH % 21.5 % (24.0-44.0); MEAN CORPUSCULAR HEMOGLOBIN 28.3 pg (27.0-33.0); MEAN CORPUSCULAR HGB CONC 30.9 g/dl (32.0-36.5); MEAN CORPUSCULAR VOLUME 91.7 fl (80.0-96.0); MONO # 0.7 10^3/uL (0.0-0.8); MONO % 16.5 % (0.0-5.0); NEUTROPHILS # 2.4 10^3/uL (1.8-7.7); NEUTROPHILS % 56.7 % (36.0-66.0); PLATELET COUNT, AUTOMATED 254 10^3/uL (150-450); RED BLOOD COUNT 3.25 10^6/uL (4.00-5.40); RED CELL DISTRIBUTION WIDTH 19.2 % (11.5-14.5); WHITE BLOOD COUNT 4.2 10^3/uL (4.0-10.0)
[2018-01-08] MEDS: LEVOTHYROXINE 75MCG TABLET (0.075MG) PO (05:52)
[2018-01-08 05:56] LABS: BEDSIDE GLUCOSE 94 MG/DL (83-110)
[2018-01-08 06:01] LABS: ANION GAP 7 MEQ/L (8-16); BLOOD UREA NITROGEN 26 MG/DL (7-18); CALCIUM LEVEL 8.2 MG/DL (8.8-10.2); CARBON DIOXIDE LEVEL 30 MEQ/L (21-32); CHLORIDE LEVEL 102 MEQ/L (98-107); CREATININE FOR GFR 1.25 MG/DL (0.55-1.30); GLOMERULAR FILTRATION RATE 43.9 (>32); GLUCOSE, FASTING 78 MG/DL (70-100); POTASSIUM SERUM 3.3 MEQ/L (3.5-5.1); SODIUM LEVEL 139 MEQ/L (136-145)
[2018-01-08 07:59] LABS: BEDSIDE GLUCOSE 87 MG/DL (83-110)
[2018-01-08] MEDS: SUCRALFATE 1 GM TAB PO ×5 (09:12→20:37)
[2018-01-08 10:05] LABS: BEDSIDE GLUCOSE 112 MG/DL (83-110)
[2018-01-08] MEDS: ASPIRIN 81 MG ENTERIC TAB PO (10:24)
[2018-01-08] MEDS: POTASSIUM CHLORIDE 10 MEQ SR TABLET PO ×2 (10:25→12:43)
[2018-01-08] MEDS: FUROSEMIDE 80 MG TAB PO (10:25)
[2018-01-08] MEDS: GEMFIBROZIL 600 MG TAB PO ×2 (10:25→20:37)
[2018-01-08] MEDS: HYDROXYCHLOROQUINE 200 MG TAB PO ×2 (10:25→20:37)
[2018-01-08] MEDS: OMEPRAZOLE 20 MG CAP PO (10:25)
[2018-01-08] MEDS: LORATADINE 10 MG TAB PO (10:25)
[2018-01-08] MEDS: DABIGATRAN ETEXILATE 75 MG CAP (PRADAXA) PO ×2 (10:26→20:37)
[2018-01-08] MEDS: FERROUS SULFATE 325MG TAB PO ×2 (10:26→20:37)
[2018-01-08] MEDS: metOLazone 5 MG TAB PO (10:26)
[2018-01-08 11:19] LABS: BEDSIDE GLUCOSE 119 MG/DL (83-110)
[2018-01-08] MEDS: METOPROLOL SUCC (TopROL XL) 100MG *XL* TAB PO (12:43)
[2018-01-08 12:47] LABS: BEDSIDE GLUCOSE 79 MG/DL (83-110)
[2018-01-08] MEDS: FUROSEMIDE 100 MG/10 ML VIAL (J1940) IV ×2 (14:47→22:52)
[2018-01-08 14:51] LABS: BEDSIDE GLUCOSE 140 MG/DL (83-110)
[2018-01-08 16:58] LABS: BEDSIDE GLUCOSE 178 MG/DL (83-110)
[2018-01-08 20:29] LABS: BEDSIDE GLUCOSE 184 MG/DL (83-110)
[2018-01-08] MEDS: ALLOPURINOL 300 MG TAB PO (20:37)
[2018-01-08] MEDS: METOPROLOL SUCC (TopROL XL) 50MG **XL** TAB PO (20:37)
[2018-01-09 05:53] LABS: BASO % 0.8 % (0.0-1.0); EOS # 0.1 10^3/uL (0.0-0.50); HEMATOCRIT 28.4 % (36.0-47.0); HEMOGLOBIN 8.9 g/dl (12.0-15.5); IMMATURE GRANULOCYTE % 0.6 % (0-3.0); LYMPH # 0.7 10^3/uL (1.5-4.5); LYMPH % 18.8 % (24.0-44.0); MEAN CORPUSCULAR HEMOGLOBIN 28.3 pg (27.0-33.0); MEAN CORPUSCULAR HGB CONC 31.3 g/dl (32.0-36.5); MEAN CORPUSCULAR VOLUME 90.4 fl (80.0-96.0); MONO # 0.5 10^3/uL (0.0-0.8); MONO % 13.3 % (0.0-5.0); NEUTROPHILS # 2.3 10^3/uL (1.8-7.7); NEUTROPHILS % 63.5 % (36.0-66.0); PLATELET COUNT, AUTOMATED 243 10^3/uL (150-450); RED BLOOD COUNT 3.14 10^6/uL (4.00-5.40); WHITE BLOOD COUNT 3.6 10^3/uL (4.0-10.0)
[2018-01-09 06:11] LABS: ANION GAP 11 MEQ/L (8-16); BLOOD UREA NITROGEN 31 MG/DL (7-18); CALCIUM LEVEL 7.9 MG/DL (8.8-10.2); CARBON DIOXIDE LEVEL 28 MEQ/L (21-32); CHLORIDE LEVEL 104 MEQ/L (98-107); CREATININE FOR GFR 1.45 MG/DL (0.55-1.30); GLUCOSE, FASTING 105 MG/DL (70-100); POTASSIUM SERUM 3.4 MEQ/L (3.5-5.1); SODIUM LEVEL 143 MEQ/L (136-145)
[2018-01-09] MEDS: SUCRALFATE 1 GM TAB PO ×2 (06:33→11:39)
[2018-01-09] MEDS: LEVOTHYROXINE 75MCG TABLET (0.075MG) PO (06:33)
[2018-01-09] MEDS: LORATADINE 10 MG TAB PO (08:42)
[2018-01-09] MEDS: GEMFIBROZIL 600 MG TAB PO (08:42)
[2018-01-09] MEDS: FUROSEMIDE 100 MG/10 ML VIAL (J1940) IV (08:42)
[2018-01-09] MEDS: metOLazone 5 MG TAB PO (08:42)
[2018-01-09] MEDS: HYDROXYCHLOROQUINE 200 MG TAB PO (08:42)
[2018-01-09] MEDS: DABIGATRAN ETEXILATE 75 MG CAP (PRADAXA) PO (08:42)
[2018-01-09] MEDS: METOPROLOL SUCC (TopROL XL) 100MG *XL* TAB PO (08:43)
[2018-01-09] MEDS: ASPIRIN 81 MG ENTERIC TAB PO (08:43)
[2018-01-09] MEDS: POTASSIUM CHLORIDE 10 MEQ SR TABLET PO (08:43)
[2018-01-09] MEDS: OMEPRAZOLE 20 MG CAP PO (08:43)
[2018-01-09] MEDS: FERROUS SULFATE 325MG TAB PO (08:43)
[2018-01-09 11:32] LABS: BEDSIDE GLUCOSE 161 MG/DL (83-110)
== END 2018-01-09 12:45 | disposition home or self-care (01) | DRG 638 ==
LOC: M ED 04:29 → M ED INP 09:57 → M PCU 17:28
PROVIDERS: Internal Medicine
DX: E11.649 Type 2 diabetes mellitus with hypoglycemia without coma (principal); I50.32 Chronic diastolic (congestive) heart failure; Z68.41 Body mass index [BMI] 40.0-44.9, adult; E78.5 Hyperlipidemia, unspecified; D50.9 Iron deficiency anemia, unspecified; E03.9 Hypothyroidism, unspecified; E11.22 Type 2 diabetes mellitus with diabetic chronic kidney disease; M10.9 Gout, unspecified; N18.9 Chronic kidney disease, unspecified; T38.3X5A Adverse effect of insulin and oral hypoglycemic [antidiabetic] drugs, initial encounter; Z66 Do not resuscitate; I48.2 Chronic atrial fibrillation; E66.01 Morbid (severe) obesity due to excess calories; R13.10 Dysphagia, unspecified; Z79.01 Long term (current) use of anticoagulants; Z96.653 Presence of artificial knee joint, bilateral; Z79.84 Long term (current) use of oral hypoglycemic drugs; Z95.0 Presence of cardiac pacemaker; Z79.82 Long term (current) use of aspirin; Z79.899 Other long term (current) drug therapy; Z88.5 Allergy status to narcotic agent; Z91.040 Latex allergy status; Z91.048 Other nonmedicinal substance allergy status

== ENCOUNTER → 2018-01-28 | Outpatient (REF) | payer MEDICARE, OTHER ==
[2018-01-28 14:10] LABS: FERRITIN 97 NG/ML (8-252); IRON (FE) 71 UG/DL (50-170); PERCENT SATURATION 16.8 % (13.2-45.0); TOTAL IRON BINDING CAPACITY 423 UG/DL (250-450)
[2018-01-31 00:06] LABS: Methylmalonic Acid 1443 nmol/L (0-378)
[2018-01-31 00:06] LABS: HOMOCYST(E)INE SERUM 52.3 umol/L (0.0-15.0)
== END ==
LOC: M LAB REF 13:07
DX: D50.9 Iron deficiency anemia, unspecified (principal)
CPT/HCPCS: 83550

== ENCOUNTER → 2018-05-08 | Outpatient (CLI) | payer MEDICARE, OTHER | LOC: M LRY 12:30 | DX: M25.741 Osteophyte, right hand (principal); M25.742 Osteophyte, left hand; M15.9 Polyosteoarthritis, unspecified; E66.01 Morbid (severe) obesity due to excess calories; Z68.37 Body mass index [BMI] 37.0-37.9, adult | CPT/HCPCS: 73130; 84550 ==

== ENCOUNTER → 2018-05-08 | Outpatient (REF) | payer MEDICARE, OTHER ==
[2018-05-08 15:16] LABS: BASO # 0.1 10^3/uL (0.0-0.2); BASO % 0.9 % (0.0-1.0); EOS # 0.3 10^3/uL (0.0-0.50); EOS % 5.3 % (0.0-3.0); HEMATOCRIT 33.3 % (36.0-47.0); HEMOGLOBIN 10.9 g/dl (12.0-15.5); IMMATURE GRANULOCYTE % 0.4 % (0-3.0); LYMPH # 1.3 10^3/uL (1.5-4.5); LYMPH % 23.8 % (24.0-44.0); MEAN CORPUSCULAR HEMOGLOBIN 32.1 pg (27.0-33.0); MEAN CORPUSCULAR HGB CONC 32.7 g/dl (32.0-36.5); MEAN CORPUSCULAR VOLUME 97.9 fl (80.0-96.0); MONO # 0.5 10^3/uL (0.0-0.8); MONO % 8.8 % (0.0-5.0); NEUTROPHILS # 3.3 10^3/uL (1.8-7.7); NEUTROPHILS % 60.8 % (36.0-66.0); PLATELET COUNT, AUTOMATED 277 10^3/uL (150-450); RED CELL DISTRIBUTION WIDTH 13.8 % (11.5-14.5); WHITE BLOOD COUNT 5.5 10^3/uL (4.0-10.0)
[2018-05-08 15:25] LABS: ALBUMIN 4.1 GM/DL (3.2-5.2); ALBUMIN/GLOBULIN RATIO 1.05 (1.00-1.93); ALKALINE PHOSPHATASE 168 U/L (45-117); ALT/SGPT 10 U/L (12-78); ANION GAP 11 MEQ/L (8-16); AST/SGOT 20 U/L (7-37); BILIRUBIN,TOTAL 0.5 MG/DL (0.2-1.0); BLOOD UREA NITROGEN 63 MG/DL (7-18); C REACTIVE PROTEIN QUANTITATIV 0.57 MG/DL (0.00-0.30); CALCIUM LEVEL 9.3 MG/DL (8.8-10.2); CARBON DIOXIDE LEVEL 26 MEQ/L (21-32); CHLORIDE LEVEL 101 MEQ/L (98-107); CREATININE FOR GFR 1.86 MG/DL (0.55-1.30); GLOMERULAR FILTRATION RATE 27.8 (>32); GLUCOSE, FASTING 129 MG/DL (70-100); POTASSIUM SERUM 4.3 MEQ/L (3.5-5.1); SODIUM LEVEL 138 MEQ/L (136-145); URIC ACID 4.5 MG/DL (2.6-6.0)
[2018-05-08 15:30] LABS: TOTAL 25(OH) VITAMIN D 27.6 NG/ML (30.0-100.0)
[2018-05-08 17:10] LABS: ERYTHROCYTE SEDIMENTATION RATE 82 mm/hr (0-30)
[2018-05-15 10:13] LABS: HLA-B27 Negative (.)
== END ==
LOC: M SFHCLERA 12:15
DX: M15.9 Polyosteoarthritis, unspecified (principal); Z68.37 Body mass index [BMI] 37.0-37.9, adult
CPT/HCPCS: 84550

== ENCOUNTER → 2018-05-30 | Outpatient (CLI) | payer MEDICARE, OTHER ==
[2018-05-30 11:55] LABS: CREATININE FOR GFR 1.73 MG/DL (0.55-1.30); GLOMERULAR FILTRATION RATE 30.2 (>32); TOTAL PROTEIN 7.3 GM/DL (6.4-8.2)
[2018-06-04 13:39] LABS: ALBUMIN 4.22 GM/DL (3.29-5.55); ALBUMIN % 57.8 % (55.8-66.1); ALPHA-1-GLOBULIN % 5.4 % (2.9-4.9); ALPHA-1-GLOBULINS 0.39 GM/DL (0.17-0.41); ALPHA-2-GLOBULINS 0.93 GM/DL (0.42-0.99); ALPHA-2-GLOBULINS % 12.7 % (7.1-11.8); BETA-1-GLOBULINS 0.58 GM/DL (0.28-0.60); BETA-1-GLOBULINS % 7.9 % (4.7-7.2); BETA-2-GLOBULINS % 5.5 % (3.2-6.5); GAMMA GLOBULIN % 10.7 % (11.1-18.8); GAMMA GLOBULINS 0.78 GM/DL (0.65-1.58)
== END ==
LOC: M LAB 10:06
DX: R70.0 Elevated erythrocyte sedimentation rate (principal)
CPT/HCPCS: 82565

== ENCOUNTER → 2018-07-26 | Outpatient (REF) | payer MEDICARE, OTHER ==
[~2018-07-26] MED LIST changes: -AMLO5TAB2 PO; +AMLO5TAB6 PO; +FIRS50SO PO; +FLON1SPR; +FURO40TA2 PO; +GEMF600T5 PO; +GLIM2TAB PO; +IPRA0.00 IN; -IPRASOL4 IN; +IRONCAP2 PO; -LASI20TA PO; +LASI20TA3 PO; +LASI40TA9 PO; +LORA-243 PO; +METO5TA PO; +PANT40TA3 PO; -ZYLO300T4 PO; +ZYLO300T6 PO
[2018-07-26 13:42] LABS: PERCENT SATURATION 6.2 % (13.2-45.0)
== END ==
LOC: M LAB REF 13:11
PROVIDERS: ATTEND Internal Medicine Nephrology
DX: D50.9 Iron deficiency anemia, unspecified (principal)

== ENCOUNTER 2018-08-15 07:14 | Outpatient (CLI) | payer MEDICARE, OTHER ==
[~2018-08-15] VITALS: Ht 149.9 cm; Wt 90.9 kg
[2018-08-15 07:29] VITALS: BP 161/69
[2018-08-15] MEDS ORDERED: IRON SUCROSE 25 MG in NS 50 ML IV ONE (07:30)
[2018-08-15] MEDS ORDERED: IRON SUCROSE 475 MG in NS 250 ML IV ONE (07:30)
[2018-08-15] MEDS ORDERED: LASI40TA9 PO (08:17)
[2018-08-15] MEDS ORDERED: TOPR50TA23 PO (08:25)
[2018-08-15] MEDS ORDERED: METF10004 PO (08:27)
[2018-08-15 08:28] VITALS: BP 141/64
[2018-08-15 09:35] VITALS: BP 125/59
[2018-08-15 10:37] VITALS: BP 126/56
[2018-08-15 12:00] VITALS: BP 139/63
[2018-08-15 13:30] VITALS: BP 137/65
== END 2018-08-15 13:40 | disposition home or self-care (01) ==
LOC: M INFU 07:14
PROVIDERS: ATTEND Internal Medicine Nephrology
DX: D50.9 Iron deficiency anemia, unspecified (principal); N18.4 Chronic kidney disease, stage 4 (severe); I48.91 Unspecified atrial fibrillation; I13.0 Hypertensive heart and chronic kidney disease with heart failure and stage 1 through stage 4 chronic kidney disease, or unspecified chronic kidney disease; E03.9 Hypothyroidism, unspecified; E11.9 Type 2 diabetes mellitus without complications; K27.9 Peptic ulcer, site unspecified, unspecified as acute or chronic, without hemorrhage or perforation; M10.9 Gout, unspecified; M06.9 Rheumatoid arthritis, unspecified; Z79.84 Long term (current) use of oral hypoglycemic drugs; Z79.899 Other long term (current) drug therapy; Z88.5 Allergy status to narcotic agent; Z91.040 Latex allergy status; Z91.048 Other nonmedicinal substance allergy status
CPT/HCPCS: 96365; 96366; J1756

== ENCOUNTER → 2018-09-12 | Outpatient (CLI) | payer MEDICARE, OTHER ==
[~2018-09-12] MED LIST changes: +TOPR50TA23 PO
--- NOTE | 2018-09-12 10:46 | REP ---
Chest two views HISTORY: Heart failure Comparison: 01/07/2018 Linear density is present in the right lower lobe consistent with atelectasis or scar. The left lung is clear. The cardiac silhouette is enlarged. The heart is normal in size. The pulmonary vasculature is normal in appearance. The bony structure is intact. A cardiac pacemaker is present. IMPRESSION: 1. Right lower lobe atelectasis or scar. 2. Cardiomegaly. Electronically Signed by Johan Arellano MD 09/12/2018 10:38 A
== END ==
LOC: M ADAMS 09:42
PROVIDERS: ATTEND Internal Medicine
DX: I50.9 Heart failure, unspecified (principal); Z95.0 Presence of cardiac pacemaker

== ENCOUNTER 2018-10-04 07:33 | Emergency (ER) | payer MEDICARE, OTHER ==
[~2018-10-04] VITALS: Ht 149.9 cm; Wt 100.0 kg
[2018-10-04] MEDS ORDERED: HYDR200T3 PO (07:59)
[2018-10-04] MEDS ORDERED: TOPR50TA23 PO (07:59)
[2018-10-04 08:26] LABS: BASO % 0.3 % (0.0-1.0); EOS % 0.7 % (0.0-3.0); HEMATOCRIT 30.8 % (36.0-47.0); HEMOGLOBIN 9.4 g/dl (12.0-15.5); LYMPH # 0.7 10^3/uL (1.5-4.5); LYMPH % 11.2 % (24.0-44.0); MEAN CORPUSCULAR HGB CONC 30.5 g/dl (32.0-36.5); MEAN CORPUSCULAR VOLUME 101.7 fl (80.0-96.0); MONO # 0.6 10^3/uL (0.0-0.8); MONO % 9.9 % (0.0-5.0); NEUTROPHILS # 4.6 10^3/uL (1.8-7.7); NEUTROPHILS % 77.6 % (36.0-66.0); PLATELET COUNT, AUTOMATED 333 10^3/uL (150-450); RED BLOOD COUNT 3.03 10^6/uL (4.00-5.40)
--- NOTE | 2018-10-04 08:50 | REP ---
Clinical: altered mental status Findings: Age-related atrophy and microvascular ischemic changes are appreciated. The ventricles and sulci are symmetric. Choi-white differentiation is maintained. There is no evidence for acute intracranial hemorrhage, mass/mass effect, pathology or infarction. No extra-axial fluid collection. Calvarium is intact. Paranasal sinuses and mastoid air cells are clear. Impression: Age related atrophy and microvascular ischemic changes. No acute intracranial hemorrhage, infarction, or mass/mass effect. Electronically Signed by Mikal Field MD 10/04/2018 08:41 A
[2018-10-04 09:10] LABS: ALBUMIN 3.5 GM/DL (3.2-5.2); ALT/SGPT 14 U/L (12-78); BILIRUBIN,DIRECT < 0.1 MG/DL (0.0-0.2); BILIRUBIN,TOTAL 0.3 MG/DL (0.2-1.0); BLOOD UREA NITROGEN 37 MG/DL (7-18); CARBON DIOXIDE LEVEL 26 MEQ/L (21-32); CHLORIDE LEVEL 101 MEQ/L (98-107); CPK CREATINE PHOSPHOKINASE 91 U/L (26-192); CREATININE FOR GFR 1.89 MG/DL (0.55-1.30); GLOMERULAR FILTRATION RATE 27.2 (>32); GLUCOSE, FASTING 163 MG/DL (70-100); MB/CK RELATIVE INDEX 3.63 (< OR =4); POTASSIUM SERUM 4.7 MEQ/L (3.5-5.1); SODIUM LEVEL 137 MEQ/L (136-145); TOTAL PROTEIN 6.9 GM/DL (6.4-8.2); TROPONIN I 0.02 NG/ML (< 0.10)
[2018-10-04 11:35] LABS: HEMOGLOBIN A1c 5.5 %
[2018-10-04 12:05] LABS: APPEARANCE, URINE CLEAR (CLEAR); BACTERIA, URINE AUTO NEGATIVE (NEGATIVE); BILIRUBIN, URINE AUTO NEGATIVE (NEGATIVE); BLOOD, URINE BLOOD NEGATIVE (NEGATIVE); COLOR, URINE YELLOW (YELLOW); GLUCOSE, URINE (UA) AUTO NEGATIVE (NEGATIVE); KETONE, URINE AUTO NEGATIVE (NEGATIVE); LEUKOCYTE ESTERASE, URINE AUTO NEGATIVE (NEGATIVE); MUCUS, URINE SMALL (NEGATIVE); NITRITE, URINE AUTO NEGATIVE (NEGATIVE); PROTEIN, URINE AUTO NEGATIVE (NEGATIVE); RBC, URINE AUTO 0 /HPF (0-3); SQUAMOUS EPITHELIAL CELL UR AU 0 /HPF (0-6); UROBILINOGEN, URINE AUTO 0.2 mg/dL (0.0-2.0); WBC, URINE AUTO 0 /HPF (0-3)
[2018-10-04 13:22] LABS: INFLUENZA A AMPLIFICATION NEGATIVE (NEGATIVE); INFLUENZA B AMPLIFICATION NEGATIVE (NEGATIVE)
[2018-10-04] MEDS ORDERED: BLOOKIT21 XX (13:22)
[2018-10-04 14:11] VITALS: BP 143/63
--- NOTE | 2018-10-05 17:29 | ECGEPIP ---
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
== END 2018-10-04 14:27 | disposition home or self-care (01) ==
LOC: M ED 07:33
DX: E11.649 Type 2 diabetes mellitus with hypoglycemia without coma (principal); I11.0 Hypertensive heart disease with heart failure; I50.9 Heart failure, unspecified; I48.91 Unspecified atrial fibrillation; E78.5 Hyperlipidemia, unspecified; M06.9 Rheumatoid arthritis, unspecified; E07.9 Disorder of thyroid, unspecified; M19.90 Unspecified osteoarthritis, unspecified site; Z95.0 Presence of cardiac pacemaker; E66.9 Obesity, unspecified; Z79.899 Other long term (current) drug therapy; Z79.890 Hormone replacement therapy; Z79.84 Long term (current) use of oral hypoglycemic drugs; Z88.5 Allergy status to narcotic agent; Z91.040 Latex allergy status; Z91.048 Other nonmedicinal substance allergy status; Z87.891 Personal history of nicotine dependence

== ENCOUNTER 2018-10-18 03:16 | Inpatient (IN) | payer MEDICARE, OTHER ==
[2018-10-18] VITALS (10 sets, daily range): BP systolic 99–128; BP diastolic 49–71
[~2018-10-18] VITALS: Ht 160 cm; Wt 102.7 kg
[~2018-10-18 03:16] MED LIST changes: +BLOOKIT21 XX
[2018-10-18] MEDS ORDERED: NS 1,000 ML IV SCH (03:26)
[2018-10-18 03:36] LABS: BASO % 0.2 % (0.0-1.0); EOS % 0.4 % (0.0-3.0); LYMPH % 10.8 % (24.0-44.0); MEAN CORPUSCULAR HEMOGLOBIN 30.5 pg (27.0-33.0); MEAN CORPUSCULAR HGB CONC 28.8 g/dl (32.0-36.5); MONO # 0.8 10^3/uL (0.0-0.8); MONO % 8.7 % (0.0-5.0); NEUTROPHILS # 7.3 10^3/uL (1.8-7.7); NEUTROPHILS % 78.5 % (36.0-66.0); PLATELET COUNT, AUTOMATED 220 10^3/uL (150-450); RED BLOOD COUNT 1.51 10^6/uL (4.00-5.40); WHITE BLOOD COUNT 9.4 10^3/uL (4.0-10.0)
[2018-10-18] MEDS ORDERED: PANTOPRAZOLE 40MG INJ (PROTONIX) (C9113) IV ONE (03:45)
[2018-10-18 03:46] LABS: HEMOGLOBIN 4.6 g/dl (12.0-15.5)
[2018-10-18 03:49] LABS: INR 3.15
[2018-10-18 03:51] LABS: PARTIAL THROMBOPLASTIN TIME 88.3 SECONDS (25.4-37.6)
[2018-10-18 04:12] LABS: ALBUMIN 2.9 GM/DL (3.2-5.2); ALT/SGPT 10 U/L (12-78); BILIRUBIN,DIRECT 0.2 MG/DL (0.0-0.2); BILIRUBIN,TOTAL 0.4 MG/DL (0.2-1.0); BLOOD UREA NITROGEN 83 MG/DL (7-18); CARBON DIOXIDE LEVEL 28 MEQ/L (21-32); CHLORIDE LEVEL 105 MEQ/L (98-107); CPK CREATINE PHOSPHOKINASE 25 U/L (26-192); CREATININE FOR GFR 2.33 MG/DL (0.55-1.30); GLOMERULAR FILTRATION RATE 21.3 (>32); GLUCOSE, FASTING 166 MG/DL (70-100); LIPASE 404 U/L (73-393); POTASSIUM SERUM 5.4 MEQ/L (3.5-5.1); SODIUM LEVEL 139 MEQ/L (136-145); TOTAL PROTEIN 5.9 GM/DL (6.4-8.2); TROPONIN I 0.04 NG/ML (< 0.10)
[2018-10-18] MEDS ORDERED: NS 1,000 ML IV ONE ×2 (04:15→05:15)
--- NOTE | 2018-10-18 04:44 | REPVR ---
EXAM: CT Abdomen and Pelvis Without Contrast EXAM DATE/TIME: 10/18/2018 3:34 AM CLINICAL HISTORY: 83 years old, female; Pain; Abdominal pain; Generalized; Patient HX: Diarrhea; Additional info: Abd pain TECHNIQUE: Axial computed tomography images of the abdomen and pelvis without contrast. All CT scans at this facility use at least one of these dose optimization techniques: automated exposure control; mA and/or kV adjustment per patient size (includes targeted exams where dose is matched to clinical indication); or iterative reconstruction. Coronal and sagittal reformatted images were created and reviewed. COMPARISON: CT ABD/PEL W/IV CONTRAST ONLY 09/18/2017 9:01 AM FINDINGS: Lower thorax: Mild right basilar atelectatic changes. ABDOMEN: Liver: The liver demonstrate mild nodular contour. Gallbladder and bile ducts: The patient is status post cholecystectomy. There is no biliary ductal dilatation. Pancreas: Normal. No ductal dilation. Spleen: Normal. No splenomegaly. Adrenals: Normal. No mass. Kidneys and ureters: There are multiple bilateral renal cysts the majority measure simple fluid density except for a 1.1 cm left lower renal pole (axial image 54) where it appears to be dense and higher than simple fluid. There is no renal stones or hydronephrosis. Stomach and bowel: There is extensive descending and sigmoid colon diverticulosis. Moderate free fluid seen layering along the left lateral abdomen in addition to small amount of fluid around the liver and spleen as well as in the pelvis. Some fluid and stranding is seen adjacent to the cecum and ileocecal junction. There is surgical suture lines in the region of the rectum. There is significant thickening in the anal region. Bulky enlarged lymph nodes seen in the right inguinal region. Multiple enlarged lymph nodes seen along the HIRA. Appendix: No evidence of appendicitis. PELVIS: Bladder: The bladder is under distended limiting its evaluation. Reproductive: The patient is status post hysterectomy. There is no adnexal mass. ABDOMEN and PELVIS: Intraperitoneal space: See Stomach And Bowel Finding. Bones/joints: There is diffuse bony osteopenia. Soft tissues: Patient status post anterior abdominal wall hernia repair. There is extensive subcutaneous stranding with skin thickening of the lower anterior abdomen. Vasculature: There is moderate aortic and iliac calcifications. Lymph nodes: See Stomach And Bowel Finding. IMPRESSION: 1. Cirrhotic liver features. 2. Moderate free fluid along the left lateral abdomen and small amount of perihepatic, perisplenic, right lower quadrant and pelvic free fluid. 3. Extensive descending and sigmoid colon diverticulosis. 4. Fluid and stranding seen adjacent to the cecum, ileocecal junction and inseparable from the descending colon. Underlying pathology in the cecal region and ascending colon such as appendicitis or diverticulitis among other etiologies cannot be excluded. 5. Low surgical line in the anorectal region with irregular thickening in the anal and perineal region. Underlying infectious, inflammatory or neoplastic process cannot be excluded. 6. Bulky adenopathy in the right inguinal region and along the HIRA chain. 7. Status post hysterectomy and cholecystectomy. 8. Numerous bilateral renal cysts including a 1.1 cm dense left lower renal pole cyst for which followup is recommended. 9. Status post anterior abdominal wall hernia repair. 10. Lower anterior abdominal skin thickening with extensive subcutaneous stranding. Correlate clinically for cellulitis. COMMENT: Consistent with the [place] [employer] Incidental Findings Committee Report (J Am Sherley Radiol 2010): Unless the patients specific circumstances suggest otherwise, any liver lesion 0.5 cm or less, any cystic kidney lesion less than 1.0 cm, and/or any adrenal lesion 1.0 cm or less not otherwise characterized in this report as possessing suspicious or indeterminate imaging features is/are highly likely to be benign and do not require follow-up imaging or biopsy. Electronically signed by: Dony Freeman On 10/18/2018 04:44:25 AM
[2018-10-18] MEDS ORDERED: FERR1TAB8 PO (05:29)
[2018-10-18] MEDS ORDERED: CALCTAB74 PO (05:29)
[2018-10-18] MEDS ORDERED: TOPR50TA23 PO ×2 (05:29)
[2018-10-18] MEDS ORDERED: FURO40TA2 PO (05:29)
[2018-10-18] MEDS ORDERED: METF10004 PO (05:29)
[2018-10-18] MEDS ORDERED: GLIM2TAB PO ×2 (05:29)
[2018-10-18] MEDS ORDERED: OCTREOTIDE ACETATE 1,200 MCG in NS 238.8 ML IV SCH ×2 (05:45→06:00)
[2018-10-18] MEDS ORDERED: OCTREOTIDE ACETATE 100 MCG/ML VIAL (J2354) IV ONE (05:45)
[2018-10-18] MEDS ORDERED: NS 500 ML IV SCH (05:57)
[2018-10-18] MEDS ORDERED: GLUCOSE 4 GM CHEW TABLET PO PRN (06:00)
[2018-10-18] MEDS ORDERED: HumaLOG INSULIN (NovoLOG) PER UNIT SC SCH ×4 (06:00→21:00)
[2018-10-18] MEDS ORDERED: GLUCAGON FOR INJ 1 MG VIAL (J1610) SC PRN (06:00)
[2018-10-18] MEDS ORDERED: DEXTROSE 50% 50 ML SYRINGE IV PRN (06:00)
[2018-10-18] MEDS ORDERED: FLUTICASONE PROP 0.05% NASAL SPRAY 16 GM (FLONASE) PRN (06:00)
[2018-10-18] MEDS ORDERED: ONDANSETRON 4MG/2ML VIAL (J2405) IV PRN ×2 (06:15→10:00)
[2018-10-18] MEDS ORDERED: ONDANSETRON 4MG/2ML VIAL (J2405) As Ordered ONE (06:22)
[2018-10-18] MEDS ORDERED: ONDANSETRON 4MG/2ML VIAL (J2405) IV ONE (06:30)
[2018-10-18] MEDS: idaruCIZUmab 2.5 GM in APPROPRIATE DILUENT 1 EA IV SCH ×2 (06:45→06:55)
--- NOTE | 2018-10-18 07:08 | HPE ---
DATE OF ADMISSION: 10/18/2018 CHIEF COMPLAINT: Diarrhea, melanotic and bloody stools, and now hematemesis. HISTORY OF PRESENT ILLNESS: The patient is an 83-year-old female. She has a significant past medical history of atrial fibrillation on Pradaxa, congestive heart failure (CHF), hyperlipidemia, hypothyroidism, peptic ulcer disease, gastroesophageal reflux disease (GERD), and chronic kidney disease. She presents to the emergency room with loose stools which were initially melanotic and then bright red blood per rectum for the last day and a half. On imaging in the emergency room, it appears that she has cirrhosis. She denies any alcohol use. She denies any abdominal pain. In the ER there was dark stool as well as bright red blood noted in her rectum then she started having coffee ground emesis. She is not aware of any diagnosis of cirrhosis though the CT shows evidence of cirrhosis and an INR of 3.1. LFTs shows an albumin of 2.9, AST and ALT are within normal limits. Her platelet count however is 220. She is on aspirin and Pradaxa. She denies any chest pain. She does endorse shortness of breath as well as generalized weakness. PAST MEDICAL HISTORY: See history of present illness. PAST SURGICAL HISTORY: Right breast biopsy. Pacemaker placement. Appendectomy. Cholecystectomy. Knee replacement. Total abdominal hysterectomy. SOCIAL HISTORY: She denies alcohol. She is a former smoker. Denies any illicit drug use. FAMILY HISTORY: Noncontributory. REVIEW OF SYSTEMS: A 12 point review of systems was completed, all of which were negative except those listed in the history of present illness. HOME MEDICATIONS: Includes: - allopurinol - aspirin - Pradaxa - Lasix - glimepiride - metformin - metoprolol - omeprazole - potassium - ferrous sulfate - levothyroxine - Carafate VITAL SIGNS ON ADMISSION: 96, 71, 18, 107/53, satting at 100% on 2 liters. PHYSICAL EXAMINATION: GENERAL: She is pale, in no apparent distress. HEAD: Normocephalic, atraumatic. EYES: Extraocular movements are intact. Pupils equal, round, reactive to light. Very pale mucous membranes. LUNGS: Clear to auscultation bilaterally. CARDIOVASCULAR: Paced. Normal S1 and S2. No murmurs, gallops, or rubs. ABDOMEN: Soft. Positive bowel sounds. No rebound or guarding. RECTAL EXAM: There is dark stool as well as bright red blood in the rectum. EXTREMITIES: No pitting edema or calf tenderness. SKIN: Intact. No rashes, lesions or breakdowns. NEUROLOGICAL EXAM: Alert and oriented times three. No focal deficits appreciated on exam. LABS AND IMAGING COMPLETED IN THE EMERGENCY DEPARTMENT: White count of 9, hemoglobin and hematocrit of 4.6/16, platelet count of 220. Coags: INR of 3.1. Chemistries: BUN and creatinine of 83/2.33, baseline creatinine of 1.9, albumin of 2.9, potassium of 5.4. IMAGING: CT of the abdomen and pelvis shows cirrhotic liver features. Moderate free fluid along the left lateral abdomen and small amount of perihepatic, perisplenic, right lower quadrant and pelvic free fluid. Extensive descending and sigmoid colon diverticulosis. Fluid and stranding seen adjacent to the cecum, ileocecal junction and inseparable from the descending colon. Underlying pathology in the cecal region and ascending colon such as appendicitis or diverticulitis among other etiologies cannot be excluded. Low surgical line in the anorectal region with irregular thickening in the anal and perineal region. Underlying infectious, inflammatory or neoplastic process cannot be excluded. Bulky adenopathy in the right inguinal region and along the HIRA chain. Status post hysterectomy and cholecystectomy. Numerous bilateral renal cysts 1.1 cm. Status post anterior abdominal wall hernia. Lower anterior abdominal skin thickening with extensive subcutaneous stranding. Correlate clinically for cellulitis. ASSESSMENT/PLAN: Hypovolemic shock from gastrointestinal (GI) bleed, acute blood loss anemia, most likely upper GI bleed, possible gastritis, peptic ulcer disease versus variceal bleed now that the patient is having upper GI bleed as well. Lower GI bleed is very much less likely. She is on octreotide, proton pump inhibitor (PPI) twice a day. Surgery was consulted. She will be taken for an EGD in case this is a variceal bleed. Stool for occult blood. Serial hemoglobins. Will transfuse 3 units of packed red blood cells. Will give Praxbind to reverse the Pradaxa. If the patient remains hypotensive after Praxbind she will likely need a central line. Will do ceftriaxone and Flagyl in case there is an underlying infectious colitis. Will send a GI panel. Will hold Pradaxa and aspirin naturally. For congestive heart failure (CHF), Lasix to be held at this point in time in the setting of hypotension, Synthroid for hypothyroidism to continue, potassium to be held also with Lasix as the patient is also slightly hypokalemia. Diabetes with nephropathy. Glimepiride and metformin to be held. Insulin sliding scale. GERD. She is on PPI twice a day. Gout. Allopurinol held. The patient is nothing by mouth. Deep vein thrombosis (DVT) prophylaxis. Sequential compression devices (SCD). Gastrointestinal (GI) prophylaxis. She is on PPI twice a day. General surgery consult with Dr. Lopez.
[2018-10-18] MEDS: SUCRALFATE 1 GM TAB PO SCH ×2 (07:30→11:34)
[2018-10-18] MEDS ORDERED: PROPOFOL 200 MG/20 ML VIAL As Ordered ONE (07:32)
[2018-10-18] MEDS ORDERED: LIDOCAINE 2% INJ 100 MG/5 ML SDV (FOR ANES.) As Ordered ONE (07:33)
[2018-10-18] MEDS ORDERED: SUCCINYLCHOLINE 100 MG/5 ML SYRINGE (J0330) As Ordered ONE (07:37)
[2018-10-18] MEDS ORDERED: ROCURONIUM BROMIDE 50 MG/5 ML VIAL As Ordered ONE (07:37)
[2018-10-18] MEDS ORDERED: MIDAZOLAM INJ 2 MG/2 ML VIAL (J2250) As Ordered ONE (07:38)
[2018-10-18] MEDS ORDERED: fentaNYL 100 MCG/2 ML INJECTION (J3010) As Ordered ONE (07:41)
[2018-10-18] MEDS: FERROUS SULFATE 325MG TAB PO SCH ×3 (09:00→20:06)
[2018-10-18] MEDS ORDERED: VASOPRESSIN INJ 20 UNITS/ML VIAL As Ordered ONE (09:03)
[2018-10-18] MEDS ORDERED: GLYCOPYRROLATE INJ 0.2 MG/ML 2 ML VIAL As Ordered ONE (09:05)
[2018-10-18] MEDS ORDERED: NEOSTIGMINE 10 MG/10 ML VIAL (J2710) As Ordered ONE (09:05)
[2018-10-18] MEDS ORDERED: LR 1,000 ML IV SCH (10:00)
[2018-10-18 10:07] LABS: HEMATOCRIT 21.5 % (36.0-47.0)
[2018-10-18 10:22] LABS: HEMOGLOBIN 6.6 g/dl (12.0-15.5)
[2018-10-18] MEDS: metroNIDAZOLE 500 MG in APPROPRIATE DILUENT 1 EA IV SCH ×3 (11:33→23:01)
[2018-10-18 12:00] LABS: HEPATITIS B SURFACE ANTIGEN NEGATIVE (NEGATIVE)
[2018-10-18 12:27] LABS: HEPATITIS B CORE ANTIBODY IGM NEGATIVE (NEGATIVE); HEPATITIS C VIRUS ABY INDEX 0.1 INDEX (<0.8)
[2018-10-18 12:30] LABS: HEPATITIS A ANTIBODY IGM NEGATIVE (NEGATIVE)
[2018-10-18] MEDS: cefTRIAXone SOD 1 GM in D5W MINI-BAG PLUS 50 ML IV SCH (12:46)
[2018-10-18 15:32] LABS: HEMATOCRIT 23.4 % (36.0-47.0); HEMOGLOBIN 7.3 g/dl (12.0-15.5)
[2018-10-18 15:39] LABS: CALCIUM LEVEL 7.5 MG/DL (8.8-10.2); CREATININE FOR GFR 2.42 MG/DL (0.55-1.30); GLOMERULAR FILTRATION RATE 20.4 (>32); POTASSIUM SERUM 5.6 MEQ/L (3.5-5.1)
[2018-10-18] MEDS ORDERED: PATIROMER SORBITEX CALCIUM 8.4 GM POWDER PACKET (VELTASSA) PO ONE (16:30)
[2018-10-18 17:11] LABS: MB/CK RELATIVE INDEX 4.86 (< OR =4); TROPONIN I 0.05 NG/ML (< 0.10)
[2018-10-18] MEDS: HumaLOG INSULIN (NovoLOG) PER UNIT SC SCH ×2 (17:30→20:06)
[2018-10-18 18:15] LABS: OSMOLALITY URINE 369 MOSM/KG (500-800)
[2018-10-18 18:19] LABS: APPEARANCE, URINE HAZY (CLEAR); BACTERIA, URINE AUTO NEGATIVE (NEGATIVE); BILIRUBIN, URINE AUTO NEGATIVE (NEGATIVE); BLOOD, URINE BLOOD NEGATIVE (NEGATIVE); COLOR, URINE YELLOW (YELLOW); GLUCOSE, URINE (UA) AUTO NEGATIVE (NEGATIVE); KETONE, URINE AUTO NEGATIVE (NEGATIVE); LEUKOCYTE ESTERASE, URINE AUTO NEGATIVE (NEGATIVE); MUCUS, URINE SMALL (NEGATIVE); NITRITE, URINE AUTO NEGATIVE (NEGATIVE); PROTEIN, URINE AUTO NEGATIVE (NEGATIVE); RBC, URINE AUTO 1 /HPF (0-3); SPECIFIC GRAVITY URINE AUTO 1.015 (1.002-1.035); SQUAMOUS EPITHELIAL CELL UR AU 0 /HPF (0-6); UROBILINOGEN, URINE AUTO 0.2 mg/dL (0.0-2.0); WBC, URINE AUTO 1 /HPF (0-3)
[2018-10-18 19:17] LABS: CHLORIDE,RANDOM URINE 25 MEQ/L; CREATININE,RANDOM URINE 88.4 MG/DL; POTASSIUM RANDOM URINE 59.2 MEQ/L; SODIUM,RANDOM URINE 20 MEQ/L; TOTAL PROTEIN,RANDOM URINE 25.8 MG/DL (0.0-12.0)
[2018-10-18] MEDS: SUCRALFATE SUSP 1GM/10ML UD PO SCH (20:06)
[2018-10-18] MEDS: PANTOPRAZOLE 40MG INJ (PROTONIX) (C9113) IV SCH (20:06)
--- NOTE | 2018-10-18 20:30 | ECGEPIP ---
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
[2018-10-18 20:44] LABS: HEMOGLOBIN 7.8 g/dl (12.0-15.5)
--- NOTE | 2018-10-18 20:59 | IPN ---
DATE: 10/18/2018 The patient is seen and examined in the intensive care unit (ICU), appears to be very pale, status post esophagogastroduodenoscopy (EGD), feeling much better after a fourth unit of transfusion. No further vomiting. No further hematemesis, but still making melanotic stool. Denies any chest pain, pressure or discomfort. Denies any shortness of breath. VITAL SIGNS: Temperature 98.6, pulse 77, respirations 19, blood pressure 99/54, 97% on room air. Previous vital signs overnight: Lowest at 74/37. LABORATORY DATA: WBC 9.4, hemoglobin and hematocrit 4.6/16, after transfusion 7.3/23.4, platelets 220. Chemistry: Sodium 141, potassium 5.6, chloride 109, bicarbonate 22, BUN 79, creatinine 2.42. PHYSICAL EXAMINATION: GENERAL: The patient is frail and pale. Generally weak. HEENT: Normocephalic, atraumatic. PULMONARY: Bilaterally clear. CARDIAC: Regular S1, S2. ABDOMEN: Soft. Positive bowel sounds. EXTREMITIES: No clubbing, cyanosis or edema. CT of the abdomen shows cirrhotic liver, moderate amount of free fluid in the abdomen, small amount of perihepatic and perisplenic and right lower quadrant pelvic fluid, extensive descending sigmoid colon diverticulosis, stranding seen adjacent to the cecum and ileocecal junction, inseparable from descending colon, possible differential includes appendicitis, diverticulitis versus malignancy. ASSESSMENT AND PLAN: This is an 83-year-old female patient with underlying medical history of atrial fibrillation on Pradaxa, congestive heart failure (CHF), dyslipidemia, hypothyroidism, peptic ulcer disease, gastroesophageal reflux disease (GERD), cirrhosis, chronic kidney disease, who presented to the emergency room with melanotic loose stool and bright red blood per rectum for 1-1/2 days, as well as hematemesis and admitted for acute blood loss anemia, hypovolemic hemorrhagic shock. 1. Acute blood loss anemia secondary to gastrointestinal bleed, hypovolemic hemorrhagic shock, most likely upper GI bleed. Consulted general surgery. Transfused a total of 5 units of packed red blood cell with improvement of blood pressure. Holding blood pressure medications. Monitor fluid status. Peptic ulcer versus gastritis versus variceal bleed. EGD did not show any esophageal varices. Carafate and proton pump inhibitor as recommended. Octreotide has been discontinued. As per general surgery, we will hold anticoagulation and antiplatelet agents. Praxbind has been given. Further recommendations as per general surgery. 2. CT findings of questionable inflammatory versus malignant changes at the ileocecal junction. The patient is currently on Rocephin and Flagyl for possible colitis. Further recommendations as per general surgery. Patient possibly will need colonoscopy in the near future. Continue transfusion. 3. Chronic kidney disease, acute on chronic renal failure secondary to prerenal azotemia in the setting of hemorrhagic shock with also hyperkalemia. Nephrology consulted. Veltassa. Continue volume resuscitation with blood or fluids. Holding Lasix, aspirin, allopurinol. 4. Diabetes. Holding oral medications. Continue basal bolus insulin. 5. Hypothyroidism. Continue Synthroid. 6. Congestive heart failure (CHF). Currently hypovolemic. We will monitor for fluid overload. Holding Lasix and beta qiana at this time given the patient just recovered from hypovolemic hemorrhagic shock. 7. Gastroesophageal reflux disease (GERD). Continue proton pump inhibitor. 8. Gout. Holding allopurinol. 9. Deep vein thrombosis (DVT) prophylaxis. Thromboembolic compression stockings (TEDS) and sequentials. Avoid anticoagulation given acute blood loss anemia. 10. Diet. The patient is on clear liquid diet. After discussion with general surgery, if the patient's condition worsens, we will consider consulting interventional radiology. 11. Acute on chronic renal failure. We will get urine studies. Nephrology on consultation. We will also get renal ultrasound. 12. History of Clostridium (C.) difficile. Probiotics ordered. DISPOSITION: Pending clinical improvement, nephrology consultation, further surgical recommendations. Critical care time spent, exclusive of procedures, 45 minutes.
[2018-10-18 21:08] LABS: CALCIUM LEVEL 7.8 MG/DL (8.8-10.2); CREATININE FOR GFR 2.66 MG/DL (0.55-1.30); GLOMERULAR FILTRATION RATE 18.3 (>32); POTASSIUM SERUM 5.2 MEQ/L (3.5-5.1)
--- NOTE | 2018-10-18 22:48 | RO ---
DATE OF PROCEDURE: 10/18/2018 PREOPERATIVE DIAGNOSIS: Hematemesis. POSTOPERATIVE DIAGNOSIS: Gastritis, duodenitis. PROCEDURE: Esophagogastroduodenoscopy (EGD). SURGEON: Dr. John Lopez COLLAR POINTER: None. ANESTHESIA: General. ESTIMATED BLOOD LOSS: Minimal. COMPLICATIONS: None. INDICATION FOR PROCEDURE: The patient is an 83-year-old female who presents to the emergency room (ER) hypotensive, vomiting blood with a hemoglobin around 4. Recommendation was to take her to the operating room for visualization. She does have a history of gastric ulcers and that could very well be contributing to this bleed. After discussion of the risks and benefits of the procedure not limited to but including bleeding, infection, perforation, damage to surrounding structures, need for further surgery, she understood and signed consent. DESCRIPTION OF PROCEDURE: The patient was brought back to operating room four after general sedation. She was placed in the left lateral decubitus position. Next, time-out was done to confirm proper patient, proper procedure. Following that, endoscope was passed down through the esophagus into the stomach. The esophagus appeared normal entering the stomach. There was some old digested blood in there. No distinct clotting or signs of ulcerations. I was able to wash away some of this stuff around the prepyloric area, did reveal some very friable tissue but no signs of any ulcers. Then passed through the pylorus into the first and second portions of the duodenum, again contents of digestive blood on the wall of the duodenum. No signs of any ulcerations there or in the duodenal bulb. Scope was retracted back, retroflexed. No signs of any masses or ulcers in the body or fundus of the stomach either. The scope was then retracted back into the esophagus and removed. The patient tolerated the procedure well. There were no signs of any active bleeding, just some gastritis and duodenitis. She will be returned to post-anesthesia care unit (PACU) in stable condition.
[2018-10-19] VITALS (7 sets, daily range): BP systolic 100–150; BP diastolic 52–64
[2018-10-19] MEDS: LEVOTHYROXINE 75MCG TABLET (0.075MG) PO SCH (04:57)
[2018-10-19 05:11] LABS: HEMATOCRIT 27.1 % (36.0-47.0); HEMOGLOBIN 8.2 g/dl (12.0-15.5); MEAN CORPUSCULAR HEMOGLOBIN 29.5 pg (27.0-33.0); MEAN CORPUSCULAR HGB CONC 30.3 g/dl (32.0-36.5); MEAN CORPUSCULAR VOLUME 97.5 fl (80.0-96.0); PLATELET COUNT, AUTOMATED 185 10^3/uL (150-450); RED BLOOD COUNT 2.78 10^6/uL (4.00-5.40)
[2018-10-19 05:21] LABS: INR 1.67
[2018-10-19 05:57] LABS: ALBUMIN 2.9 GM/DL (3.2-5.2); BILIRUBIN,TOTAL 0.7 MG/DL (0.2-1.0); CALCIUM LEVEL 7.3 MG/DL (8.8-10.2); CREATININE FOR GFR 2.65 MG/DL (0.55-1.30); GLOMERULAR FILTRATION RATE 18.4 (>32); MAGNESIUM LEVEL 1.8 MG/DL (1.8-2.4); POTASSIUM SERUM 4.8 MEQ/L (3.5-5.1); TOTAL PROTEIN 5.6 GM/DL (6.4-8.2)
[2018-10-19] MEDS: SUCRALFATE SUSP 1GM/10ML UD PO SCH ×4 (07:49→20:11)
[2018-10-19] MEDS: HumaLOG INSULIN (NovoLOG) PER UNIT SC SCH ×4 (07:49→21:00)
[2018-10-19] MEDS: FERROUS SULFATE 325MG TAB PO SCH ×2 (07:50→20:11)
[2018-10-19] MEDS: metroNIDAZOLE 500 MG in APPROPRIATE DILUENT 1 EA IV SCH ×3 (07:50→23:52)
[2018-10-19] MEDS: LACTOBACILLUS ACIDOPHILUS CAP (BACID) PO SCH ×3 (07:50→17:19)
[2018-10-19] MEDS: PANTOPRAZOLE 40MG INJ (PROTONIX) (C9113) IV SCH ×2 (07:51→20:11)
[2018-10-19] MEDS: cefTRIAXone SOD 1 GM in D5W MINI-BAG PLUS 50 ML IV SCH (07:51)
--- NOTE | 2018-10-19 08:18 | REP ---
Renal ultrasound: The right kidney measures 10.4 x 5.5 x 5.0 cm. Left kidney measures 10.8 x 4.7 x 5.6 cm. The kidneys are normal size. There is bilateral renal cortical echogenicity, this is compatible with medical renal disease. There is no calculus or hydronephrosis on the right on the left. There are no solid renal masses on the right on the left. There are multiple renal cysts bilaterally. The largest cyst on the right is at the mid pole measuring up to 1.4 cm. The largest on the left is at the lower pole measuring up to 3.8 cm. Bladder ultrasound: There is a Gifford catheter in the bladder, the bladder is nondistended and cannot be further evaluated. Impression: Bilateral renal cortical echogenicity compatible with bilateral medical renal disease. Multiple bilateral renal cysts. No solid renal masses. No hydronephrosis on the right on the left Electronically Signed by John Rendon MD 10/19/2018 08:10 A
[2018-10-19] MEDS ORDERED: ASPIRIN 81 MG ENTERIC TAB PO SCH (09:00)
--- NOTE | 2018-10-19 12:23 | IPNPDOC ---
Text Note Date of Service The patient was seen on 10/19/18. NOTE Subjective: Patient is an 83-year-old female who presented to the hospital after having melanotic stools and bright red blood per rectum. Patient also started to have coffee-ground emesis. Patient was admitted for acute GI bleed with hypovolemic shock. Patient has received 5 units of blood and has been stabilized. Patient had an esophagogastroduodenoscopy yesterday which did not f ind any source of the bleeding. Patient's hemoglobin and hematocrit have stabilized and patient is doing well. Patient had some nausea overnight however, this improved with Zofran. This morning patient is doing well. Patient was saying her back is bothering her however, she has been laying in bed for the past 2 days because of her acute GI bleed. Patient says she has been able to get up and walk around a little bit. Patient says she does have some chronic back pain. Patient was having no difficulties with drinking her clear liquid diet. Review of systems General: Patient denies fevers HEENT: Patient denies headaches Cardiovascular: Patient denies chest pain Respiratory: Patient denies shortness of breath, cough GI: Patient had nausea and last night which was alleviated by Zofran. Patient denies abdominal pain, vomiting, diarrhea : Patient denies pain or difficulty with urination Neurological: Patient denies numbness or tingling in extremities Extremities: Patient denies swelling or pain in extremities Objective: Vitals: (see below) General: No acute distress, laying comfortably in bed. HEENT: Normocephalic, atraumatic, moist mucous membranes. Neck: No JVD or lymphadenopathy Cardiac: RRR, there is a 2/6 systolic murmur heard loudest over the left sternal border at the second intercostal space. Pulm: Clear to auscultation b/l. No wheezing, rhonchi Abd: Mild tenderness to palpation about the abdomen. Abdomen is nondistended and there are normoactive bowel sounds 4 quadrants. Ext: No edema or cyanosis. Radial, posterior tibial, and dorsalis pedis pulses equal bilaterally. Labs (see below) Images: A renal ultrasound performed on 10/18/2018 showed bilateral renal cortic al echogenicity compatible with bilateral medical renal disease. Multiple bilateral renal cysts, no solid renal masses, no hydronephrosis on the right and on the left. Assessment/Plan 1. Acute blood loss anemia secondary to gastrointestinal bleed, hypovolemic hemorrhagic shock, most likely due to upper GI bleed. Patient was transfused a total of 5 units packed red blood cells with improvement of blood pressure and hemoglobin. Hemoglobin and hematocrit and stable over the last 12 hours. Patient appears stable at this time. Carafate and PPI are currently being given. Aspirin to be restarted tomorrow. Patient has been started on a mechanical soft renal and consistent carb diet. We'll continue to monitor with every 12 hours hematocrit and hemoglobins. 2. CT findings questionable for inflammatory versus malignant changes of the ileocecal junction. Patient is currently on Rocephin and Flagyl for possible colitis. Further recommendations as per general surgery. Patient will possibly need colonoscopy in the near future. 3. Chronic kidney disease, acute on chronic renal failure secondary to prerenal azotemia the setting of hemorrhagic shock. Patient was hyperkalemic which is improved. Nephrology has been consulted. Volume resuscitation will be continued with blood and fluids. Holding Lasix, aspirin, allopurinol. 4. Diabetes. Continue sliding scale. 5. Hypothyroidism. Continue Synthroid. 6. Congestive heart failure. Currently hypovolemic. We will continue the monitor the patient. Lasix and beta blockers are being held due to hemorrhagic hypovolemic shock. 7. Gastroesophageal reflux disease. Continue proton pump inhibitor and Carafate. 8. Gout. Holding allopurinol. 9. History of Clostridium difficile. Probiotics have been ordered. DVT prophy: Thromboembolic deterrent stockings and sequential compression devices. Anticoagulation being held due to acute blood loss anemia. Dispo: Pending clinical improvement and physical therapy. VS,Santosbone, I+O VS, Fishbone, I+O Laboratory Tests 10/18/18 15:07 Calcium Level 7.5 L, Total Creatine Kinase 37 10/18/18 19:54 Calcium Level 7.8 L 10/19/18 04:51 Calcium Level 7.3 L, Red Blood Count 2.78 L, Mean Corpuscular Volume 97.5 H, Mean Corpuscular Hemoglobin 29.5, Mean Corpuscular Hemoglobin Concent 30.3 L, Red Cell Distribution Width 18.5 H, Aspartate Amino Transf (AST/SGOT) 14, Alanine Aminotransferase (ALT/SGPT) 11 L, Alkaline Phosphatase 86, Total Bilirubin 0.7 #, Total Protein 5.6 L, Albumin 2.9 L Vital Signs Date Time Temp Pulse Resp B/P (MAP) Pulse Ox O2 Delivery O2 Flow Rate FiO2 10/19/18 08:00 98.0 72 21 150/61 (90) 97 10/18/18 10:05 2 10/18/18 03:22 Nasal Cannula I&O- Last 24 Hours up to 6 AM 10/19/18 06:00 Intake Total 4915 ml Output Total 675 ml Balance 4240 ml GME ATTESTATION GME ATTESTATION My faculty preceptor for this patient encounter was physically present during the encounter and was fully available. All aspects of the patient interview, examination, medical decision making process, and medical care plan development were reviewed and approved by the faculty preceptor. The faculty preceptor is aware and concurs with the plan as stated in the body of this note and will attest to such by his/her cosignature. ATTENDING NOTE I have both independently examined this patient as well as reviewed the note I have discussed in detail the findings and plan of treatment as documented in the note. I will continue to follow the patient and offer further guidance to the pa tients care as necessary during this hospital stay. HUONG Mckeon MD, DO Oct 19, 2018 12:23 FRANTZ RODNEY MD Oct 19, 2018 15:36
[2018-10-19] MEDS: NS 0.45% 1,000 ML IV SCH (12:33)
[2018-10-19] MEDS: SUCRALFATE 1 GM TAB PO SCH (14:13)
[2018-10-19] MEDS: METOPROLOL SUCC (TopROL XL) 50MG **XL** TAB PO SCH ×2 (14:20→20:13)
[2018-10-19 16:14] LABS: HEMATOCRIT 25.8 % (36.0-47.0); HEMOGLOBIN 8.2 g/dl (12.0-15.5)
[2018-10-20] VITALS (21 sets, daily range): BP systolic 93–152; BP diastolic 51–70
[2018-10-20 03:02] LABS: HEMATOCRIT 24.7 % (36.0-47.0); HEMOGLOBIN 7.7 g/dl (12.0-15.5)
[2018-10-20] MEDS: NS 0.45% 1,000 ML IV SCH (03:30)
[2018-10-20] MEDS: LEVOTHYROXINE 75MCG TABLET (0.075MG) PO SCH (05:32)
[2018-10-20 06:58] LABS: HEMATOCRIT 24.3 % (36.0-47.0); HEMOGLOBIN 7.5 g/dl (12.0-15.5); MEAN CORPUSCULAR HGB CONC 30.9 g/dl (32.0-36.5); MEAN CORPUSCULAR VOLUME 93.8 fl (80.0-96.0); PLATELET COUNT, AUTOMATED 179 10^3/uL (150-450); RED BLOOD COUNT 2.59 10^6/uL (4.00-5.40); WHITE BLOOD COUNT 4.9 10^3/uL (4.0-10.0)
[2018-10-20 07:15] LABS: INR 1.76; PROTHROMBIN TIME 20.8 SECONDS (12.1-14.4)
[2018-10-20] MEDS: LR 1,000 ML IV SCH (07:15)
[2018-10-20] MEDS: HumaLOG INSULIN (NovoLOG) PER UNIT SC SCH ×4 (07:30→20:21)
[2018-10-20 07:34] LABS: ALBUMIN 2.6 GM/DL (3.2-5.2); BILIRUBIN,TOTAL 0.6 MG/DL (0.2-1.0); CALCIUM LEVEL 6.9 MG/DL (8.8-10.2); CREATININE FOR GFR 2.23 MG/DL (0.55-1.30); GLOMERULAR FILTRATION RATE 22.5 (>32); MAGNESIUM LEVEL 1.7 MG/DL (1.8-2.4); POTASSIUM SERUM 3.9 MEQ/L (3.5-5.1); TOTAL PROTEIN 5.3 GM/DL (6.4-8.2)
[2018-10-20] MEDS: PANTOPRAZOLE 40MG INJ (PROTONIX) (C9113) IV SCH ×2 (07:53→20:04)
[2018-10-20] MEDS: metroNIDAZOLE 500 MG in APPROPRIATE DILUENT 1 EA IV SCH ×2 (07:53→16:38)
[2018-10-20] MEDS: SUCRALFATE SUSP 1GM/10ML UD PO SCH ×4 (07:54→20:04)
[2018-10-20] MEDS: LACTOBACILLUS ACIDOPHILUS CAP (BACID) PO SCH ×3 (07:54→18:13)
[2018-10-20] MEDS: FERROUS SULFATE 325MG TAB PO SCH ×2 (07:54→20:04)
[2018-10-20] MEDS: METOPROLOL SUCC (TopROL XL) 50MG **XL** TAB PO SCH ×2 (07:57→20:04)
[2018-10-20] MEDS ORDERED: MAG SULF 1GM/100ML (MAG RUN) 1 GM in APPROPRIATE DILUENT 1 EA IV ONE (08:00)
[2018-10-20] MEDS: cefTRIAXone SOD 1 GM in D5W MINI-BAG PLUS 50 ML IV SCH (08:54)
[2018-10-20] MEDS ORDERED: ASPIRIN 81 MG ENTERIC TAB PO SCH (09:00)
--- NOTE | 2018-10-20 09:44 | CR ---
DATE OF CONSULTATION: 10/19/2018 REQUESTING PHYSICIAN: Dr. Doreen Apple. REASON FOR CONSULTATION: Management of acute renal failure, hypokalemia. CHIEF COMPLAINT: Patient presented to the emergency room yesterday with diarrhea, melena and hematemesis. HISTORY OF PRESENT ILLNESS: Juana Doty is an 83-year-old female with the past medical history of chronic kidney disease, stage III to at least stage IV, baseline creatinine of around 1.6 as of September 2018. History of atrial fibrillation, congestive heart failure, peptic ulcer disease, multiple other comorbidities as mentioned below. She presented to the hospital yesterday with diarrhea, initially with melena, later on bright red blood loss per rectum associated with hematemesis as well. She was admitted to intensive care unit (ICU) overnight. She was given blood transfusions. Esophagogastroduodenoscopy (EGD) was done, which showed a very friable mucosa. Patient went into oliguric acute renal failure overnight with a creatinine of 2.4 and a potassium of 5.6. Those labs were discussed with myself by the hospitalist, Dr. Doreen Apple last night. The decision was done to resuscitate the patient with blood and fluid and give the patient a dose of Veltassa. There was no urgent need for hemodialysis. Patient has stopped bleeding now. Her hemoglobin is stable. I saw and evaluated the patient this morning in the ICU. Patient has a Gifford catheter. She started making urine this morning. She is currently not on any IV fluids. Patient reports that she is feeling very thirsty and she wants to drink ice water. She reports mild shortness of breath, hyperkalemia is improving at this point. PAST MEDICAL HISTORY: Chronic kidney disease stage III/CKD IV. Best baseline creatinine 1.6. History of congestive heart failure. Atrial fibrillation on Pradaxa. Hyperlipidemia. Hypothyroidism. Peptic ulcer disease. Gastroesophageal reflux disease. Morbid obesity. PAST SURGICAL HISTORY: Right breast biopsy. Status post pacemaker placement. Status post appendectomy. Status post cholecystectomy. Bilateral knee replacement. Status post total abdominal hysterectomy. ALLERGIES: Patient is allergic to LASIX and CODEINE. FAMILY HISTORY: No significant family history of end-stage renal disease requiring hemodialysis. SOCIAL HISTORY: Patient denies any illicit drug abuse, alcohol abuse, or smoking. REVIEW OF SYSTEMS: CONSTITUTIONAL: Patient reports feeling weak and tired. EYES: He denies any blurry vision, double, vision. ENT: Denies any dysphagia, odynophagia or ear discharge. CARDIOVASCULAR: She denies any chest pain or palpitation. RESPIRATORY: She does report some shortness of breath. GASTROINTESTINAL: She reports recent GI bleed. Reports that she is feeling better now. GENITOURINARY: Patient was oliguric overnight. MUSCULOSKELETAL: Patient reports bilateral knee pain. CENTRAL NERVOUS SYSTEM: She denies any strokes or seizures. SKIN: She denies any ulcers or rashes. PSYCH: She denies any depression or anxiety. HEMATOLOGIC/ONCOLOGIC: She reports a history of use of Pradaxa and recent GI bleed. All other review of systems are negative. PHYSICAL EXAMINATION: GENERAL: Patient is awake, alert, oriented times three. Morbidly obese. Laying in bed in no apparent distress. VITAL SIGNS: Temperature 98 degrees Fahrenheit, blood pressure 150/61, pulse 72, respiratory rate 21, saturating 97% in room air. Intake and output: Urine output recorded as 450 mL yesterday. 225 mL so far today since overnight. HEAD/NECK: Extraocular muscles intact. Pupils equal and reactive to light. Mucous membranes are moist. Neck is supple. There is mildly elevated jugular venous distention (JVD). CARDIOVASCULAR: S1, S2. Trace edema of the bilateral lower extremities. RESPIRATORY: Decreased breath sounds at the bases. Patient has very dry mucous membranes. No active rales or rhonchi. ABDOMEN: Soft. Positive bowel sounds. Old surgical scars in the abdomen. Mild tenderness to deep palpation in the epigastric region. GENITOURINARY: Patient has a indwelling Gifford catheter. Urine in the bag is clear. MUSCULOSKELETAL: No clubbing or stenosis. Pulses are 2+. CENTRAL NERVOUS SYSTEM: No focal deficit. Power is 5/5 in bilateral extremities. SKIN: No rashes or ulcers. LABORATORY DATA: CBC showed a hemoglobin 4.6 on arrival. This morning CBC showed a WBC 9, hemoglobin 8.2, platelets 185. Urinalysis done yesterday showed negative nitrates, negative blood, negative protein. BMP last night showed sodium 141, potassium 4.6, chloride 109, bicarbonate 22, BUN 79, creatinine 2.4. BMP this morning showed sodium 139, potassium 4.8, chloride 107, bicarbonate 23, BUN 77, creatinine is 2.6, calcium 7.3, magnesium 1.8, albumin 2.9. IMAGING: Renal ultrasound was done yesterday which showed multiple bilateral renal cysts. No solid renal masses are noted. CURRENT ADMISSION MEDICATIONS: The patient's medications include Rocephin 1 gram IV daily. Flagyl 500 mg IV every 8 hours. I started the patient on half normal saline at 75 mL/h times two liters. She is on aspirin 81 mg daily, iron tablet 325 mg by mouth twice a day, levothyroxine 37.5 mcg by mouth daily, metoprolol XL 100 mg by mouth daily along with 50 mg in the evening. Zofran as needed, Protonix 40 mg IV twice a day and Sucralfate 1 gram by mouth nightly. ASSESSMENT: 83-year-old female with a past medical history of chronic kidney disease stage III/CKD IV with recent admission of hemorrhagic shock and she has developed acute oliguric renal failure. PLAN: 1. Acute oliguric renal failure: This is secondary to hemorrhagic shock. Patient was aggressively resuscitated. She has started making urine this morning. Patient clinically looks dry. I am starting her on half normal saline at 75 mL/h for a total of two liters. Continue to encourage oral hydration. Renal function is expected to move back to baseline. 2. Hyperkalemia: This is secondary to acute renal failure and digestion of blood in the gut. Patient was given IV fluid hydration. Potassium level is already improving. 3. Hemorrhagic shock: Patient is status post 5 units of packed red blood cells (PRBC) transfusion. Hemoglobin level is improving. Continue Protonix and Sucralfate as her GI. 4. Atrial fibrillation: Heart rate is controlled with metoprolol. Pradaxa was held on admission because of the bleed. Thank you for involving me in the care of this patient. I shall be happy to follow the patient along with you tomorrow morning.
[2018-10-20 11:23] LABS: HEMATOCRIT 23.9 % (36.0-47.0); HEMOGLOBIN 7.4 g/dl (12.0-15.5)
[2018-10-20] MEDS ORDERED: CALCIUM GLUCONATE 1,000 MG in D5W MINI-BAG PLUS 100 ML IV ONE (12:00)
--- NOTE | 2018-10-20 16:28 | IPNPDOC ---
Subjective General Date/Time Seen The patient was seen on 10/20/18 at 16:24. Subject Chief Complaint/History The patient is a 83-year-old female admitted with a reason for visit of Hypovolemic Shock, Gi Bleeding. Patient hemodynamically stable. She has had several maroon colored liquid stools overnight and this am. She reports some mild crampy lower abdominal pain. Current Medications Current Medications Current Medications Aspirin (Ecotrin) 81 mg DAILY PO ; Start 10/19/18 at 09:00; Stop 10/19/18 at 12:14; Status DC Aspirin (Ecotrin) 81 mg DAILY PO ; Start 10/20/18 at 09:00; Status Cancel Ceftriaxone Sodium 1 gm/ Dextrose 50 ml @ 100 mls/hr Q24H IV Last administered on 10/20/18at 08:54; Start 10/18/18 at 09:00 Dextrose (Dextrose 50%) 25 ml ASDIRECTED PRN IV SEE LABEL COMMENTS; Start 10/18/18 at 06:00 Ferrous Sulfate (Ferrous Sulfate) 325 mg BID PO Last administered on 10/20/18at 07:54; Start 10/18/18 at 09:00 Fluticasone Propionate (Flonase 0.05% Nasal [place]) 1 spray DAILY PRN NA ALLERGIES; Start 10/18/18 at 06:00 Glucagon (Glucagon) 1 mg ASDIRECTED PRN SC SEE LABEL COMMENTS; Start 10/18/18 at 06:00 Glucose (Glucose) 16 GM ASDIRECTED PRN PO SEE LABEL COMMENTS; Start 10/18/18 at 06:00 Home Med (Med Rec Complete!) ASDIRECTED XX ; Start 10/18/18 at 05:30; Stop 10/18/18 at 05:31; Status DC Idarucizumab 2.5 gm/IV Miscellaneous Supplies 50 ml @ 600 mls/hr Q5M IV Last administered on 10/18/18at 06:55; Start 10/18/18 at 06:30; Stop 10/18/18 at 06:39; Status DC Insulin Human Lispro (HumaLOG INSULIN) SEE PROTOCOL TABLE AC SC ; Start 10/18/18 at 07:30; Stop 10/18/18 at 07:42; Status DC Insulin Human Lispro (HumaLOG INSULIN) SEE PROTOCOL TABLE AC SC Last administered on 10/18/18at 13:06; Start 10/18/18 at 12:00; Stop 10/18/18 at 16:2 0; Status DC Insulin Human Lispro (HumaLOG INSULIN) SEE PROTOCOL TABLE Q6H SC ; Start 10/18/18 at 06:00; Stop 10/18/18 at 09:20; Status DC Insulin Human Lispro (HumaLOG INSULIN) SEE PROTOCOL TABLE QHS SC ; Start 10/18/18 at 21:00; Stop 10/18/18 at 21:00; Status DC Insulin Human Lispro (HumaLOG INSULIN) See Protocol Table AC SC Last administered on 10/19/18at 17:20; Start 10/18/18 at 17:30 Insulin Human Lispro (HumaLOG INSULIN) See Protocol Table QHS SC ; Start 10/18/18 at 21:00 Lactated Ringer's 1,000 ml @ 75 mls/hr [id number] IV ; Start 10/18/18 at 10:00; Stop 10/18/18 at 11:00; Status DC Lactated Ringer's 1,000 ml @ 80 mls/hr [id number] IV Last administered on 10/20/18at 07:15; Start 10/20/18 at 07:15 Lactobacillus Acidophilus (Bacid) 1 ea WM PO Last administered on 10/20/18at 13:03; Start 10/19/18 at 08:00 Levothyroxine Sodium (Synthroid) 37.5 mcg DAILY@0600 PO Last administered on at 05:32; Start 10/19/18 at 06:00 Metoprolol Succinate (TopROL XL) 50 mg QHS PO Last administered on 10/19/18at 20:13; Start 10/19/18 at 21:00 Metoprolol Succinate (TopROL XL) 100 mg DAILY PO Last administered on 10/20/18at 07:57; Start 10/19/18 at 09:00 Metronidazole 500 mg/IV Miscellaneous Supplies 100 ml @ 100 mls/hr Q8H IV Last administered on 10/20/18at 07:53; Start 10/18/18 at 08:00 Octreotide Acetate 1200 mcg/ Sodium Chloride 240 ml @ 10 mls/hr Q24H IV ; Start 10/18/18 at 05:45; Status Cancel Octreotide Acetate 1200 mcg/ Sodium Chloride 240 ml @ 10 mls/hr Q24H IV Last administered on 10/18/18 07:09; Start 10/18/18 at 06:00; Stop 10/18/18 at 09:20; Status DC Ondansetron HCl (ZOFRAN INJection) 4 mg Q4HP PRN IV NAUSEA OR VOMITING; Start 10/18/18 at 10:00; Stop 10/18/18 at 11:00; Status DC Ondansetron HCl (ZOFRAN INJection) 4 mg Q8HP PRN IV NAUSEA OR VOMITING Last administered on 10/18/18 18:25; Start 10/18/18 at 06:15 Pantoprazole Sodium (Protonix) 40 mg BID IV Last administered on 10/20/18 07:53; Start 10/18/18 at 21:00 Sodium Chloride 500 ml @ 60 mls/hr Q8H20M IV Last administered on 10/18/18 06:24; Start 10/18/18 at 05:57; Stop 10/18/18 at 14:16; Status DC Sodium Chloride 1,000 ml @ 75 mls/hr [id number] IV Last administered on 10/20/18 03:30; Start 10/19/18 at 13:00; Stop 10/20/18 at 07:10; Status DC Sodium Chloride 1,000 ml @ 150 mls/hr Q6H40M IV Last administered on 10/18/18 03:34; Start 10/18/18 at 03:26; Stop 10/18/18 at 06:04; Status DC Sucralfate (Carafate Suspension) 1 gm ACHS PO Last administered on 10/20/18 13:02; Start 10/18/18 at 21:00 Sucralfate (Carafate) 1 gm ACHS PO Last administered on 10/18/18 11:34; Start 10/18/18 at 07:30; Stop 10/18/18 at 17:34; Status DC Allergies Coded Allergies: Latex (Verified Allergy, Severe, ANAPHYLAXIS, 12/17/17) [place] (Verified Allergy, Unknown, PINE SAP, 12/17/17) Codeine (Verified Adverse Reaction, Intermediate, DIZZINESS, BLURRED VISION, HEADACHE, DRY MOUTH, 12/17/17) Objective Physical Examination Examination GENERAL APPEARANCE:sitting up on chair, comfortable. LUNGS: Clear to auscultation bilaterally. No wheezing appreciated. HEART: irregular heart rhythm. ABDOMEN: Abdomen is markedly round, soft, nondistended. nontender on palpation. EXTREMITIES: Extremities have no deformities. No edema identified. Vital Signs Vital Signs Date Time Temp Pulse Resp B/P (MAP) Pulse Ox O2 Delivery O2 Flow Rate FiO2 10/20/18 15:55 98.1 69 20 114/58 (76) 100 10/18/18 10:05 2 10/18/18 03:22 Nasal Cannula I&Os I&O- Last 24 Hours up to 6 AM 10/20/18 06:00 Intake Total 1580 ml Output Total 1950 ml Balance -370 ml Laboratory Data Labs 24H Laboratory Tests 2 10/19/18 16:52: Bedside Glucose (Misc Panel) 151H 10/19/18 20:51: Bedside Glucose (Misc Panel) 146H 10/20/18 06:29: Nucleated Red Blood Cells % (auto) 1.4H, Prothrombin Time 20.8H, Prothromb Time International Ratio 1.76, Anion Gap 9, Glomerular Filtration Rate 22.5L, Blood Urea Nitrogen 68H, Creatinine 2.23H, Sodium Level 138, Potassium Level 3.9, Chloride Level 108H, Carbon Dioxide Level 21, Calcium Level 6.9L, Aspartate Amino Transf (AST/SGOT) 14, Alanine Aminotransferase (ALT/SGPT) 10L, Alkaline Phosphatase 82, Total Bilirubin 0.6, Total Protein 5.3L, Albumin 2.6L, Magnesium Level 1.7L, Albumin/Globulin Ratio 0.96L 10/20/18 12:59: Bedside Glucose (Misc Panel) 151H CBC/BMP Laboratory Tests 10/20/18 02:55 10/20/18 06:29 Red Blood Count 2.59 L, Mean Corpuscular Volume 93.8, Mean Corpuscular Hemoglobin 29.0, Mean Corpuscular Hemoglobin Concent 30.9 L, Red Cell Distribution Width 18.7 H, Calcium Level 6.9 L, Aspartate Amino Transf (AST/SGOT) 14, Alanine Aminotransferase (ALT/SGPT) 10 L, Alkaline Phosphatase 82, Total Bilirubin 0.6, Total Protein 5.3 L, Albumin 2.6 L 10/20/18 11:04 Impression GI bleeding She had upper endoscopy last sunday showing gastritis. Her stools overnight and today looks maroon colored and not melanotic. Will prep her for colonoscopy tomorrow. Plan / VTE VTE Prophylaxis Ordered?: No VTE Exclusion Pharmacological: Bleeding Risk Plan / Urinary Catheter Reason for insertion/continuin: Critical Pt monitoring MEGAN WOODALL MD Oct 20, 2018 16:28
[2018-10-20] MEDS ORDERED: GOLYTELY SOLN 4000 ML BTL PO ONE (18:00)
[2018-10-20 18:26] LABS: HEMOGLOBIN 10.6 g/dl (12.0-15.5)
--- NOTE | 2018-10-20 18:27 | IPNPDOC ---
Text Note Date of Service The patient was seen on 10/20/18. NOTE 2 episode of brown red stool over night with feeling of lightheadedness. Denied chest pain. Denied abd pain, n/v. transfer PHYSICAL EXAMINATION: GENERAL: The patient is frail and pale. Generally weak. HEENT: Normocephalic, atraumatic. PULMONARY: Bilaterally clear. CARDIAC: Regular S1, S2. ABDOMEN: Soft. Positive bowel sounds. EXTREMITIES: No clubbing, cyanosis or edema. ASSESSMENT AND PLAN: This is an 83-year-old female patient with underlying medical history of atrial fibrillation on Pradaxa, congestive heart failure (CHF), dyslipidemia, hypothyroidism, peptic ulcer disease, gastroesophageal reflux disease (GERD), cirrhosis, chronic kidney disease, who presented to the emergency room with melanotic loose stool and bright red blood per rectum for 1-1/2 days, as well as hematemesis and admitted for acute blood loss anemia, hypovolemic hemorrhagic shock. 1. Acute blood loss anemia secondary to gastrointestinal bleed, hypovolemic hemorrhagic shock, most likely upper GI bleed. Consulted general surgery. Transfused a total of 7 units of packed red blood cell with improvement of blood pressure. Holding blood pressure medications. Monitor fluid status. Peptic ulcer versus gastritis versus variceal bleed. EGD did not show any esophageal varices. Carafate and proton pump inhibitor as recommended. Octreotide has been discontinued. Praxbind has been given. rebleed transferred back to ICU. Further recommendations as per general surgery. 2. CT findings of questionable inflammatory versus malignant changes at the ileocecal junction. The patient is currently on Rocephin and Flagyl for possible colitis. Further recommendations as per general surgery. Patient possibly will need colonoscopy. Continue transfusion. 3. Chronic kidney disease, acute on chronic renal failure secondary to prerenal azotemia in the setting of hemorrhagic shock with also hyperkalemia. Nephrology consulted. Veltassa. Continue volume resuscitation with blood or fluids. Holding Lasix, aspirin, allopurinol. 4. Diabetes. Holding oral medications. Continue basal bolus insulin. 5. Hypothyroidism. Continue Synthroid. 6. Congestive heart failure (CHF). Currently hypovolemic. We will monitor for fluid overload. Holding Lasix at this time given the patient just recovered from hypovolemic hemorrhagic shock. 7. Gastroesophageal reflux disease (GERD). Continue proton pump inhibitor. 8. Gout. Holding allopurinol. 9. Deep vein thrombosis (DVT) prophylaxis. Thromboembolic compression stockings (TEDS) and sequentials. Avoid anticoagulation given acute blood loss anemia. 11. Acute on chronic renal failure. We will get urine studies. Nephrology on consultation. We will also get renal ultrasound. improved with transfusion and IVF 12. History of Clostridium (C.) difficile. Probiotics ordered. DISPOSITION: Pending clinical improvement, nephrology consultation, further surgical recommendations. VS,Fishbone, I+O VS, Fishbone, I+O Laboratory Tests 10/20/18 02:55 10/20/18 06:29 Red Blood Count 2.59 L, Mean Corpuscular Volume 93.8, Mean Corpuscular Hemoglobin 29.0, Mean Corpuscular Hemoglobin Concent 30.9 L, Red Cell Distribution Width 18.7 H, Calcium Level 6.9 L, Aspartate Amino Transf (AST/SGOT) 14, Alanine Aminotransferase (ALT/SGPT) 10 L, Alkaline Phosphatase 8 2, Total Bilirubin 0.6, Total Protein 5.3 L, Albumin 2.6 L 10/20/18 11:04 Vital Signs Date Time Temp Pulse Resp B/P (MAP) Pulse Ox O2 Delivery O2 Flow Rate FiO2 10/20/18 15:55 98.1 69 20 114/58 (76) 100 10/18/18 10:05 2 10/18/18 03:22 Nasal Cannula I&O- Last 24 Hours up to 6 AM 10/20/18 06:00 Intake Total 1580 ml Output Total 1950 ml Balance -370 ml FRANTZ RODNEY MD Oct 20, 2018 18:20
[2018-10-21] VITALS (23 sets, daily range): BP systolic 116–172; BP diastolic 56–76
[2018-10-21] MEDS: LR 1,000 ML IV SCH ×2 (00:02→08:15)
[2018-10-21] MEDS: metroNIDAZOLE 500 MG in APPROPRIATE DILUENT 1 EA IV SCH ×3 (00:02→15:26)
[2018-10-21 05:15] LABS: HEMOGLOBIN 9.3 g/dl (12.0-15.5); MEAN CORPUSCULAR HEMOGLOBIN 29.4 pg (27.0-33.0); MEAN CORPUSCULAR HGB CONC 32.1 g/dl (32.0-36.5); MEAN CORPUSCULAR VOLUME 91.8 fl (80.0-96.0); PLATELET COUNT, AUTOMATED 172 10^3/uL (150-450); RED BLOOD COUNT 3.16 10^6/uL (4.00-5.40); WHITE BLOOD COUNT 5.7 10^3/uL (4.0-10.0)
[2018-10-21 05:26] LABS: INR 1.67
[2018-10-21 05:43] LABS: ALBUMIN 2.5 GM/DL (3.2-5.2); BILIRUBIN,TOTAL 0.6 MG/DL (0.2-1.0); CALCIUM LEVEL 6.9 MG/DL (8.8-10.2); CREATININE FOR GFR 1.57 MG/DL (0.55-1.30); GLOMERULAR FILTRATION RATE 33.7 (>32); MAGNESIUM LEVEL 1.9 MG/DL (1.8-2.4); POTASSIUM SERUM 3.3 MEQ/L (3.5-5.1); TOTAL PROTEIN 5.2 GM/DL (6.4-8.2)
[2018-10-21] MEDS: LEVOTHYROXINE 75MCG TABLET (0.075MG) PO SCH (06:48)
[2018-10-21] MEDS ORDERED: MAGNESIUM CITRATE 300 ML BTL PO ONE (07:00)
[2018-10-21] MEDS: HumaLOG INSULIN (NovoLOG) PER UNIT SC SCH ×4 (07:30→20:55)
[2018-10-21] MEDS: PANTOPRAZOLE 40MG INJ (PROTONIX) (C9113) IV SCH ×2 (09:07→20:53)
[2018-10-21] MEDS: cefTRIAXone SOD 1 GM in D5W MINI-BAG PLUS 50 ML IV SCH (09:08)
[2018-10-21] MEDS: KCL 10MEQ/100ML SWI (KRUN) 10 MEQ in APPROPRIATE DILUENT 1 EA IV SCH ×3 (10:00→11:28)
[2018-10-21] MEDS: METOPROLOL SUCC (TopROL XL) 50MG **XL** TAB PO SCH ×2 (10:01→20:54)
--- NOTE | 2018-10-21 10:22 | IPN ---
DATE OF SERVICE: 10/20/2018 SUBJECTIVE: Patient was seen and examined at the bedside today, morning in the intensive care unit (ICU). Last 24 hours events are noted. Patient started having GI bleed again. She reports having blood clots and two episodes of bleeding per rectum. She was transferred back to the ICU. She is currently nothing by mouth for possible esophagogastroduodenoscopy (EGD) or colonoscopy. Two more units of packed red blood cells (PRBC) transfusion have been ordered. Patient is currently on intravenous (IV) fluid Ringer lactate. Renal function is stable. Patient is nonoliguric at this point. Creatinine is trending down. OBJECTIVE: VITAL SIGNS: Temperature is 97.9 degrees Fahrenheit, blood pressure 120/59, pulse is 69, respiratory rate of 15, saturating 99% on room air. INTAKE AND OUTPUT: Urine output recorded as 975 mL yesterday, 875 mL so far today since overnight. Weight on the bed scale is not available. PHYSICAL EXAMINATION: GENERAL: Patient is awake, alert, oriented times three, laying in bed, morbidly obese, in no apparent distress. HEAD AND NECK EXAM: Extraocular muscles intact. Pupils equally round and reactive to light. Mucous membranes are moist. Neck is supple. Mildly elevated jugular venous distention (JVD). CARDIOVASCULAR: S1, S2. Trace edema of the bilateral lower extremities. RESPIRATORY: Mildly decreased breath sounds at the bases, otherwise no active rales or rhonchi. ABDOMEN: Is soft, obese, positive bowel sounds. Nontender. No organomegaly. GENITOURINARY: She has an indwelling Gifford catheter. Urine in the bag is clear. MUSCULOSKELETAL: No clubbing or cyanosis. Pulses are 2+. CENTRAL NERVOUS SYSTEM (INSTRUMENTATION ENGINEER): No focal deficit. Power is 5/5 in all extremities. SKIN: No rashes or ulcers. LAB REVIEW: CBC showed WBC of 4.9, hemoglobin 7.5, platelets are 179. BMP showed sodium 138, potassium 3.9, chloride 108, bicarbonate 21, BUN 68, creatinine is 2.2, it was 2.6 yesterday. Magnesium 1.7. Albumin 2.6. CURRENT INPATIENT MEDICATIONS: Patient's medications were all reviewed by me. She was given a dose of calcium gluconate today, morning. She is on Ringer lactate at 80 mL/h. She was also given a dose of magnesium sulfate 1 gram IV times one dose. No other change in medications as compared with yesterday. ASSESSMENT AND PLAN: 1. Acute renal failure: Patient had oliguric renal failure secondary to hemorrhagic shock. Patient is being resuscitated with blood and fluids. She is nonoliguric at this point. Renal function is improving. Continue the IV fluid hydration and monitoring of intake and output. 2. Hyperkalemia: Potassium level is significantly better. She is actually becoming hypokalemic now. She is getting Ringer lactate, which already has potassium in it. No need of extra potassium administration. 3. Hypomagnesemia: Patient was given a dose of magnesium sulfate 1 gram IV times one dose. 4. Hypocalcemia: It is secondary to aggressive blood transfusions. Corrected calcium is low. I am giving her one dose of calcium gluconate 1 gram today, morning. 5. Acute gastrointestinal (GI) bleed: Patient came in with shock secondary to GI bleed. However, she is persistently having the GI bleeding. Her blood comes from [facility]. She is going to get two more units of PRBC transfusion. Patient is nothing by mouth. She will probably get EGD and colonoscopy by gastroenterology. Continue Protonix and Sucralfate at this point. 6. Atrial fibrillation: Heart rate is controlled with metoprolol. Pradaxa was held because of GI bleeding. Total critical care time spent in the management of this patient today, morning in the ICU was 40 minutes.
--- NOTE | 2018-10-21 11:31 | IPNPDOC ---
Text Note Date of Service The patient was seen on 10/21/18. NOTE No acute events overnight. She denies nausea, emesis, fevers, or pain. She is still having maroon stools, so she is going for colonoscopy today. VSSAF NAD abd - soft, non distended, no rebound or guarding labs - see below A) 83y/o female with GI bleed from unknown source. EGD showed gastritis P) OR for colonoscopy today. Oj Lopez DO VS,Amelia, I+O VS, Amelia, I+O Laboratory Tests 10/20/18 18:19 10/21/18 04:40 Red Blood Count 3.16 L, Mean Corpuscular Volume 91.8, Mean Corpuscular Hemoglobin 29.4, Mean Corpuscular Hemoglobin Concent 32.1, Red Cell Distribution Width 18.9 H, Calcium Level 6.9 L, Aspartate Amino Transf (AST/SGOT) 21, Alanine Aminotransferase (ALT/SGPT) 10 L, Alkaline Phosphatase 80, Total Bilirubin 0.6, Total Protein 5.2 L, Albumin 2.5 L Vital Signs Date Time Temp Pulse Resp B/P (MAP) Pulse Ox O2 Delivery O2 Flow Rate FiO2 10/21/18 10:01 69 129/58 10/21/18 10:00 18 99 10/21/18 08:00 98.3 10/18/18 10:05 2 10/18/18 03:22 Nasal Cannula I&O- Last 24 Hours up to 6 AM 10/21/18 06:00 Intake Total 5120 ml Output Total 1250 ml Balance 3870 ml SYED LOPEZ DO Oct 21, 2018 11:31
[2018-10-21] MEDS: SUCRALFATE SUSP 1GM/10ML UD PO SCH ×4 (12:00→20:53)
[2018-10-21] MEDS: LACTOBACILLUS ACIDOPHILUS CAP (BACID) PO SCH ×3 (12:30→17:38)
--- NOTE | 2018-10-21 13:12 | IPN ---
DATE OF SERVICE: 10/21/2018 SUBJECTIVE: The patient was seen and examined at the bedside today morning. She was sitting up in the sofa. She is afebrile, hemodynamically stable, but she continues to have maroon-colored stools. The patient is being prepped for a colonoscopy today. She continues to be on intravenous (IV) fluids at this point. She is nothing by mouth. Renal function continues to improve. Creatinine is down to 1.5 today. The patient is hypokalemic on the laboratories today. She got 2 units of packed red blood cells (PRBC) transfusion yesterday. OBJECTIVE: VITAL SIGNS: Temperature is 98.3 degrees Fahrenheit, blood pressure 132/60, pulse is 71, respiratory rate of 18, saturating 98% on room air. INTAKE AND OUTPUT: Urine output recorded is 1 liter yesterday, 450 mL so far today since overnight. Weight in the bed scale is not available. PHYSICAL EXAMINATION: GENERAL: The patient is awake, alert, oriented times three, sitting up in the sofa, morbidly obese, in no apparent distress. HEAD AND NECK EXAMINATION: Extraocular muscles intact. Pupils equally round and reactive to light. Mucous membranes are moist. Neck is supple. Mild elevation of jugular venous distention (JVD). CARDIOVASCULAR: S1, S2. Regular rate. 1+ edema of the bilateral lower extremities. RESPIRATORY: Mildly decreased breath sounds at the bases. Otherwise, no active rales or rhonchi. ABDOMEN: Is soft, obese, positive bowel sounds. Nontender. No organomegaly. GENITOURINARY: She has an indwelling Gifford catheter. MUSCULOSKELETAL: No clubbing or cyanosis. Pulses are 2+. CENTRAL NERVOUS SYSTEM (STEEL TIER): No focal deficit. Power is 5/5 in bilateral upper extremities. LABORATORY REVIEW: Complete blood count (CBC) showed WBC 5.7, hemoglobin 9.3, platelets are 172. Basic metabolic profile (BMP) showed sodium 140, potassium 3.3, chloride 111, bicarbonate is 21, BUN 51, creatinine is 1.5, magnesium 1.9, albumin 2.5. CURRENT INPATIENT MEDICATIONS: The patient's medications were all reviewed by me. She is on Ringer lactate. I have decreased the fluid rate to 50 mL/h. I also gave her potassium chloride 10 mEq intravenous (IV) times three doses. No other change in the medications today as compared with yesterday. ASSESSMENT AND PLAN: 1. Acute renal failure. The patient is nonoliguric at this point. She continues to be on IV fluid. Renal function is improving. Creatinine is down to 1.5 today. 2. Hypokalemia. The is hypokalemic today. She was given potassium chloride 10 mEq IV times three doses. She is also getting potassium in the IV fluids, as well. 3. Acute gastrointestinal (GI) bleed. The patient continues to have maroon-colored stool. Esophagogastroduodenoscopy (EGD) initially showed gastritis. She is nothing by mouth for colonoscopy today. Continue Protonix and sucralfate. 4. Hypomagnesemia. Magnesium level improved today to 1.9.
[2018-10-21] MEDS ORDERED: PROPOFOL 200 MG/20 ML VIAL As Ordered ONE (13:49)
[2018-10-21] MEDS ORDERED: LIDOCAINE 2% INJ 100 MG/5 ML SDV (FOR ANES.) As Ordered ONE (13:49)
[2018-10-21] MEDS ORDERED: LR 1,000 ML IV SCH (14:45)
[2018-10-21] MEDS ORDERED: fentaNYL 100 MCG/2 ML INJECTION (J3010) IV PRN (14:45)
[2018-10-21] MEDS ORDERED: ONDANSETRON 4MG/2ML VIAL (J2405) IV PRN (14:45)
[2018-10-21] MEDS: FERROUS SULFATE 325MG TAB PO SCH ×2 (15:26→20:54)
[2018-10-21 18:07] LABS: HEMATOCRIT 33.4 % (36.0-47.0); HEMOGLOBIN 10.4 g/dl (12.0-15.5)
--- NOTE | 2018-10-21 18:49 | IPNPDOC ---
Text Note Date of Service The patient was seen on 10/21/18. NOTE bowel prep. Denied chest pain. Denied abd pain, n/v. PHYSICAL EXAMINATION: GENERAL: The patient is frail and pale. Generally weak. HEENT: Normocephalic, atraumatic. PULMONARY: Bilaterally clear. CARDIAC: Regular S1, S2. ABDOMEN: Soft. Positive bowel sounds. EXTREMITIES: No clubbing, cyanosis or edema. ASSESSMENT AND PLAN: This is an 83-year-old female patient with underlying medical history of atrial fibrillation on Pradaxa, congestive heart failure (CHF), dyslipidemia, hypothyroidism, peptic ulcer disease, gastroesophageal reflux disease (GERD), cirrhosis, chronic kidney disease, who presented to the emergency room with melanotic loose stool and bright red blood per rectum for 1-1/2 days, as well as hematemesis and admitted for acute blood loss anemia, hypovolemic hemorrhagic shock. 1. Acute blood loss anemia secondary to gastrointestinal bleed, hypovolemic hemorrhagic shock. Consulted general surgery. Transfused a total of 7 units of packed red blood cell with improvement of blood pressure. Holding blood pressure medications. Monitor fluid status. EGD did not show any esophageal varices. Carafate and proton pump inhibitor as recommended. Octreotide has been discontinued. Praxbind has been given. rebleed transferred back to ICU. [facility] er recommendations as per general surgery. colonoscopy 2. CT findings of questionable inflammatory versus malignant changes at the ileocecal junction. The patient is currently Flagyl for possible colitis. Rocephin stopped. Further recommendations as per general surgery. Patient possibly will need colonoscopy. Continue transfusion. 3. Acue on Chronic kidney disease, acute on chronic renal failure secondary to prerenal azotemia in the setting of hemorrhagic shock with also hyperkalemia. Nephrology consulted. Veltassa given. Holding Lasix, aspirin, allopurinol. 4. Diabetes. Holding oral medications. Continue basal bolus insulin. 5. Hypothyroidism. Continue Synthroid. 6. Congestive heart failure (CHF). Currently hypovolemic. We will monitor for fluid overload. Holding Lasix at this time given the patient just recovered from hypovolemic hemorrhagic shock. 7. Gastroesophageal reflux disease (GERD). Continue proton pump inhibitor. 8. Gout. Holding allopurinol. 9. Deep vein thrombosis (DVT) prophylaxis. Thromboembolic compression stockings (TEDS) and sequentials. Avoid anticoagulation given acute blood loss anemia. 10. History of Clostridium (C.) difficile. Probiotics ordered. 11. h/o A fib metoprolol, hold AC, d/w Dr Lin, risk and benefit explained to patient DISPOSITION: Pending clinical improvement, nephrology consultation, further surgical recommendations. VS,Fishbone, I+O VS, Fishbone, I+O Laboratory Tests 10/21/18 04:40 Red Blood Count 3.16 L, Mean Corpuscular Volume 91.8, Mean Corpuscular Hemoglobin 29.4, Mean Corpuscular Hemoglobin Concent 32.1, Red Cell Distribution Width 18.9 H, Calcium Level 6.9 L, Aspartate Amino Transf (AST/SGOT) 21, Alanine Aminotransferase (ALT/SGPT) 10 L, Alkaline Phosphatase 80, Total Bilirubin 0.6, Total Protein 5.2 L, Albumin 2.5 L 10/21/18 15:16 Vital Signs Date Time Temp Pulse Resp B/P (MAP) Pulse Ox O2 Delivery O2 Flow Rate FiO2 10/21/18 18:00 69 18 172/74 (106) 98 10/21/18 16:00 97.6 10/21/18 14:31 12 10/18/18 03:22 Nasal Cannula I&O- Last 24 Hours up to 6 AM 10/21/18 06:00 Intake Total 5120 ml Output Total 1250 ml Balance 3870 ml FRANTZ RODNEY MD Oct 21, 2018 18:49
[2018-10-22] MEDS: metroNIDAZOLE 500 MG in APPROPRIATE DILUENT 1 EA IV SCH ×2 (00:17→08:12)
[2018-10-22 04:00] VITALS: BP 118/58
[2018-10-22] MEDS: LEVOTHYROXINE 75MCG TABLET (0.075MG) PO SCH (05:14)
[2018-10-22 05:25] LABS: HEMATOCRIT 29.8 % (36.0-47.0); HEMOGLOBIN 9.6 g/dl (12.0-15.5); MEAN CORPUSCULAR HEMOGLOBIN 29.6 pg (27.0-33.0); MEAN CORPUSCULAR HGB CONC 32.2 g/dl (32.0-36.5); PLATELET COUNT, AUTOMATED 203 10^3/uL (150-450); RED BLOOD COUNT 3.24 10^6/uL (4.00-5.40)
[2018-10-22 05:36] LABS: INR 1.51; PROTHROMBIN TIME 18.4 SECONDS (12.1-14.4)
[2018-10-22 06:01] LABS: ALBUMIN 2.7 GM/DL (3.2-5.2); BILIRUBIN,TOTAL 0.3 MG/DL (0.2-1.0); CREATININE FOR GFR 1.24 MG/DL (0.55-1.30); GLOMERULAR FILTRATION RATE 44.2 (>32); MAGNESIUM LEVEL 2.1 MG/DL (1.8-2.4); POTASSIUM SERUM 3.3 MEQ/L (3.5-5.1); TOTAL PROTEIN 5.5 GM/DL (6.4-8.2)
[2018-10-22] MEDS ORDERED: POTASSIUM CHLORIDE 10 MEQ SR TABLET PO ONE ×2 (06:15→12:00)
--- NOTE | 2018-10-22 06:45 | RO ---
DATE OF PROCEDURE: 10/21/2018 PREOPERATIVE DIAGNOSIS: Melanotic stools. POSTOPERATIVE DIAGNOSIS: Internal hemorrhoids and diverticulosis. PROCEDURE: SURGEON: John Lopez DO JOGGER OPERATOR: None. ANESTHESIA: IV sedation. COMPLICATIONS: None. ESTIMATED BLOOD LOSS: None. INDICATIONS FOR PROCEDURE: Patient is an 83-year-old female who admitted to the hospital with bright red hematemesis on . She had an upper scope that was essentially normal with some mild gastritis and inflammation, but no signs of any active bleeding or ulcerations. Over the weekend, her hemoglobin continued to drop and she had some maroon and melanotic stools. Therefore, recommendation was to do a colonoscopy today. She was prepped yesterday and tolerated the prep well. The plan is to continue with the colonoscopy today. After discussion of the risks and benefits of the procedure not limited to but including bleeding, infection, perforation, damage to surrounding structures, need for further surgery, she understood and signed consent. PROCEDURE: The patient brought to operating room 3. After sufficient sedation, she was placed in left lateral decubitus position. Next, a time out was done to confirm proper patient and proper procedure. Following that, colonoscope was passed through the rectum all way to the cecum. The appendiceal orifice and ileocecal valve were identified. Scope was then slowly withdrawn backwards. There was some montanez diverticulosis. No signs of any diverticulitis. No signs of any colitis, arteriovenous malformations (AVM), masses or polyps. The scope was brought back into the rectum. There was large internal hemorrhoids that were not actively bleeding and no signs of any recent bleeding. The scope was then removed. The patient was awakened from anesthesia and sent to the postanesthesia care unit (PACU) in stable condition.
[2018-10-22 08:00] VITALS: BP 122/59
[2018-10-22] MEDS: SUCRALFATE SUSP 1GM/10ML UD PO SCH ×4 (08:12→20:37)
[2018-10-22] MEDS: PANTOPRAZOLE 40MG INJ (PROTONIX) (C9113) IV SCH ×2 (08:12→20:37)
[2018-10-22] MEDS: HumaLOG INSULIN (NovoLOG) PER UNIT SC SCH ×4 (08:12→20:39)
[2018-10-22] MEDS: FERROUS SULFATE 325MG TAB PO SCH ×2 (08:13→20:38)
[2018-10-22] MEDS: METOPROLOL SUCC (TopROL XL) 50MG **XL** TAB PO SCH ×2 (08:13→20:38)
[2018-10-22] MEDS: LACTOBACILLUS ACIDOPHILUS CAP (BACID) PO SCH ×3 (08:13→17:19)
--- NOTE | 2018-10-22 10:37 | IPNPDOC ---
Text Note Date of Service The patient was seen on 10/22/18. NOTE No acute events overnight. She denies nausea, emesis, fevers, or bowel movements since the scope. She is still having mid upper back pain when she eats anything cold. No other complaints. Colonoscopy yesterday was normal without any signs of anything bleeding. VSSAF NAD abd - soft, non distended, no rebound or guarding labs - see below A) 83y/o female with GI bleed from unknown source. EGD showed gastritis, and colonoscopy was normal. P) I discussed her scopes with her, and she told me about her caffeine intake again. She was unaware that the soda and tea were considered caffeine also. She essentially only drinks caffeine products at home. I recommend that she cut at least half of that out, and stay on carafate, and a PPI. Restart anticoagulation if needed, and safe to dc home if hgb stays stable, and no more black or maroon stools. will follow as needed. Oj Lopez DO VS,Amelia, I+O VS, Amelia, I+O Laboratory Tests 10/21/18 15:16 10/22/18 04:49 Red Blood Count 3.24 L, Mean Corpuscular Volume 92.0, Mean Corpuscular Hemoglobin 29.6, Mean Corpuscular Hemoglobin Concent 32.2, Red Cell Distribution Width 19.2 H, Calcium Level 7.0 L, Aspartate Amino Transf (AST/SGOT) 19, Alanine Aminotransferase (ALT/SGPT) 12, Alkaline Phosphatase 87, Total Bilirubin 0.3, Total Protein 5.5 L, Albumin 2.7 L Vital Signs Date Time Temp Pulse Resp B/P (MAP) Pulse Ox O2 Delivery O2 Flow Rate FiO2 10/22/18 08:13 122/59 10/22/18 08:00 97.8 70 18 99 10/22/18 06:00 Room Air 10/21/18 14:31 12 I&O- Last 24 Hours up to 6 AM 10/22/18 06:00 Intake Total 2740 ml Output Total 650 ml Balance 2090 ml SYED LOPEZ DO Oct 22, 2018 10:37
[2018-10-22] MEDS: SPIRONOLACTONE 25 MG TAB PO SCH (11:32)
[2018-10-22] MEDS: FUROSEMIDE 20 MG TAB PO SCH (11:32)
[2018-10-22 12:00] VITALS: BP 115/54
[2018-10-22] MEDS: ASPIRIN 81 MG ENTERIC TAB PO SCH (12:21)
--- NOTE | 2018-10-22 13:10 | IPN ---
DATE OF SERVICE: 10/22/2018 SUBJECTIVE: The patient was seen and examined at the bedside today morning. She got the colonoscopy done yesterday. No active bleeding was found. She was found to have internal hemorrhoids. She denies any more blood in the stools. Hemoglobin level is stable. Renal function is improving. Creatinine is down to 1.2, which is actually better than her baseline. The patient does report lower extremity edema. Her diuretics are on hold. Intravenous (IV) fluids have been stopped. OBJECTIVE: VITAL SIGNS: Temperature is 97.8 degrees Fahrenheit, blood pressure 115/54, pulse is 69, respiratory rate of 20, saturating 100% on room air. INTAKE AND OUTPUT: Urine output recorded is 825 mL yesterday, 200 mL so far today since overnight. Weight in the bed scale is 99.8 kg. PHYSICAL EXAMINATION: GENERAL: The patient is awake, alert, oriented times three, lying in bed, morbidly obese, in no apparent distress. HEAD AND NECK EXAMINATION: Extraocular muscles intact. Pupils equally round and reactive to light. Mucous membranes are moist. Neck is supple. There is moderate elevation of jugular venous distention (JVD). CARDIOVASCULAR: S1, S2. Regular rate. 1+ edema of the bilateral lower extremities. RESPIRATORY: Mildly decreased breath sounds at the bases. Otherwise, no active rales or rhonchi. ABDOMEN: Is soft, obese, positive bowel sounds. Nontender. No organomegaly. MUSCULOSKELETAL: No clubbing or cyanosis. Pulses are 2+. CENTRAL NERVOUS SYSTEM (BURRER MARKER AXLE): No focal deficit. Power is 5/5 in all extremities. LABORATORY REVIEW: Complete blood count (CBC) showed a WBC of 6, hemoglobin 9.6, platelets are 203. Basic metabolic profile (BMP) showed sodium 139, potassium 3.3, chloride 112, bicarbonate 19, BUN 37, creatinine is 1.2, albumin is 2.7. CURRENT INPATIENT MEDICATIONS: The patient's medications were all reviewed by me. The patient has been given potassium chloride at 40 mEq by mouth times one dose today. I have started the patient on furosemide 60 mg by mouth daily, along with spironolactone 25 mg by mouth daily. ASSESSMENT AND PLAN: 1. Acute renal failure superimposed on chronic kidney disease. The patient's renal function has improved back to baseline. Creatinine is 1.2, which is close to her baseline creatinine. 2. Chronic diastolic congestive heart failure. The patient's latest echocardiogram is not available. Last echocardiogram was more than 5 years ago. She was on Lasix 60 mg by mouth twice a day. I am restarting the patient on Lasix 60 mg daily, along with spironolactone 25 mg by mouth daily. 3. Hypokalemia. The patient was already given potassium chloride 40 mEq by mouth times one dose, and she is being started on spironolactone, as well. 4. Acute gastrointestinal (GI) bleeding. The patient is status post 7 units of packed red blood cells (PRBC) transfusion. Hemoglobin level is still 9.6. She denies any active complaints. If the patient bleeds again, then we need to look for a possible source of bleeding in the small intestine.
[2018-10-22 16:00] VITALS: BP 144/67
--- NOTE | 2018-10-22 19:13 | IPNPDOC ---
Text Note Date of Service The patient was seen on 10/22/18. NOTE Denied chest pain. Denied abd pain, n/v. Participating with PT. no further bleed PHYSICAL EXAMINATION: GENERAL: The patient is frail and pale. Generally weak. HEENT: Normocephalic, atraumatic. PULMONARY: Bilaterally clear. CARDIAC: Regular S1, S2. ABDOMEN: Soft. Positive bowel sounds. EXTREMITIES: No clubbing, cyanosis or edema. ASSESSMENT AND PLAN: This is an 83-year-old female patient with underlying medical history of atrial fibrillation on Pradaxa, congestive heart failure (CHF), dyslipidemia, hypothyroidism, peptic ulcer disease, gastroesophageal reflux disease (GERD), cirrhosis, chronic kidney disease, who presented to the emergency room with melanotic loose stool and bright red blood per rectum for 1-1/2 days, as well as hematemesis and admitted for acute blood loss anemia, hypovolemic hemorrhagic shock. 1. Acute blood loss anemia secondary to gastrointestinal bleed, hypovolemic hemorrhagic shock. Consulted general surgery. Transfused a total of 7 units of packed red blood cell with improvement of blood pressure. Monitor fluid status. EGD did not show any esophageal varices. Carafate and proton pump inhibitor as recommended. Octreotide has been discontinued. Praxbind has been given. course complicated with rebleed, colonoscopy done. Further recommendations as per general surgery. colonoscopy 2. CT findings of questionable inflammatory versus malignant changes at the ileocecal junction. Further recommendations as per general surgery. need outpatient f/u. off antibiotics 3. Acue on Chronic kidney disease, acute on chronic renal failure secondary to prerenal azotemia in the setting of hemorrhagic shock with also hyperkalemia. Nephrology consulted. Veltassa given. aspirin, allopurinol. kidney function returned to baseline, restarted lasix and spironolactone 4. Diabetes. Holding oral medications. Continue basal bolus insulin. 5. Hypothyroidism. Continue Synthroid. 6. Congestive heart failure (CHF). euvolemix We will monitor for fluid overload. initialing hold Lasix at this time given hypovolemic hemorrhagic shock. restarted lasix and spironolactone 7. Gastroesophageal reflux disease (GERD). Continue proton pump inhibitor. 8. Gout. Holding allopurinol. 9. Deep vein thrombosis (DVT) prophylaxis. Thromboembolic compression stockings (TEDS) and sequentials. Avoid anticoagulation given acute blood loss anemia. 10. History of Clostridium (C.) difficile. Probiotics ordered. 11. h/o A fib metoprolol, hold AC, d/w Dr Lin, risk and benefit explained to patient DISPOSITION: Pending clinical improvement, nephrology consultation, further surgical recommendations. PT. VS,Fishbone, I+O VS, Fishbone, I+O Laboratory Tests 10/22/18 04:49 Red Blood Count 3.24 L, Mean Corpuscular Volume 92.0, Mean Corpuscular Hemoglobin 29.6, Mean Corpuscular Hemoglobin Concent 32.2, Red Cell Distribution Width 19.2 H, Calcium Level 7.0 L, Aspartate Amino Transf (AST/SGOT) 19, Alanine Aminotransferase (ALT/SGPT) 12, Alkaline Phosphatase 87, Total Bilirubin 0.3, Total Protein 5.5 L, Albumin 2.7 L Vital Signs Date Time Temp Pulse Resp B/P (MAP) Pulse Ox O2 Delivery O2 Flow Rate FiO2 10/22/18 18:00 70 100 Room Air 10/22/18 16:00 98.7 20 144/67 (92) 10/21/18 14:31 12 I&O- Last 24 Hours up to 6 AM 10/22/18 06:00 Intake Total 2740 ml Output Total 650 ml Balance 2090 ml FRANTZ RODNEY MD Oct 22, 2018 19:13
[2018-10-22 20:00] VITALS: BP 115/55
[2018-10-23] VITALS (7 sets, daily range): BP systolic 118–133; BP diastolic 60–85
[2018-10-23 05:14] LABS: HEMATOCRIT 29.2 % (36.0-47.0); HEMOGLOBIN 9.3 g/dl (12.0-15.5); MEAN CORPUSCULAR HEMOGLOBIN 29.8 pg (27.0-33.0); MEAN CORPUSCULAR HGB CONC 31.8 g/dl (32.0-36.5); MEAN CORPUSCULAR VOLUME 93.6 fl (80.0-96.0); PLATELET COUNT, AUTOMATED 219 10^3/uL (150-450); RED BLOOD COUNT 3.12 10^6/uL (4.00-5.40); WHITE BLOOD COUNT 5.6 10^3/uL (4.0-10.0)
[2018-10-23] MEDS: LEVOTHYROXINE 75MCG TABLET (0.075MG) PO SCH (05:26)
[2018-10-23 05:36] LABS: INR 1.27; PROTHROMBIN TIME 16.1 SECONDS (12.1-14.4)
[2018-10-23 05:38] LABS: ALBUMIN 2.6 GM/DL (3.2-5.2); BILIRUBIN,TOTAL 0.4 MG/DL (0.2-1.0); CALCIUM LEVEL 7.1 MG/DL (8.8-10.2); CREATININE FOR GFR 1.27 MG/DL (0.55-1.30); MAGNESIUM LEVEL 1.9 MG/DL (1.8-2.4); POTASSIUM SERUM 3.9 MEQ/L (3.5-5.1); TOTAL PROTEIN 5.3 GM/DL (6.4-8.2)
[2018-10-23] MEDS: SUCRALFATE SUSP 1GM/10ML UD PO SCH ×4 (07:56→20:36)
[2018-10-23] MEDS: FUROSEMIDE 20 MG TAB PO SCH ×2 (07:57→17:58)
[2018-10-23] MEDS: FERROUS SULFATE 325MG TAB PO SCH ×2 (07:57→20:37)
[2018-10-23] MEDS: HumaLOG INSULIN (NovoLOG) PER UNIT SC SCH ×4 (07:57→20:37)
[2018-10-23] MEDS: PANTOPRAZOLE 40MG INJ (PROTONIX) (C9113) IV SCH ×2 (07:57→20:36)
[2018-10-23] MEDS: LACTOBACILLUS ACIDOPHILUS CAP (BACID) PO SCH ×3 (07:57→17:58)
[2018-10-23] MEDS: ASPIRIN 81 MG ENTERIC TAB PO SCH (07:58)
[2018-10-23] MEDS: SPIRONOLACTONE 25 MG TAB PO SCH (07:59)
[2018-10-23] MEDS: METOPROLOL SUCC (TopROL XL) 50MG **XL** TAB PO SCH ×2 (08:00→20:37)
[2018-10-23] MEDS ORDERED: OMEP20CA3 PO (12:53)
[2018-10-23] MEDS ORDERED: ALDA25TA2 PO (12:53)
--- NOTE | 2018-10-23 16:02 | IPN ---
DATE OF SERVICE: 10/23/2018 SUBJECTIVE: The patient was seen and examined at the bedside today morning. She was started on diuretics yesterday. Urine output is slightly better today as compared with yesterday, but she still reports some shortness of breath and she still has lower extremity edema. Her renal function is stable. Creatinine is at 1.27 at this point. OBJECTIVE: VITAL SIGNS: Temperature is 97.2 degrees Fahrenheit, blood pressure 132/61, pulse is 72, respiratory rate of 17, saturating 97% on room air. INTAKE AND OUTPUT: Urine output recorded is 950 mL yesterday, 4500 mL so far today since overnight. Weight in the bed scale is 100.9 kg. PHYSICAL EXAMINATION: GENERAL: The patient is awake, alert, oriented times three, morbidly obese, laying in bed, in no apparent distress. HEAD AND NECK EXAMINATION: Extraocular muscles intact. Pupils equally round and reactive to light. Mucous membranes are moist. Jugular venous distention (JVD) is elevated. CARDIOVASCULAR: S1, S2. Regular rate. 1+ edema of the bilateral lower extremities. RESPIRATORY: Mildly decreased breath sounds at the bases. Otherwise, no active rales or rhonchi. ABDOMEN: Is soft, obese, positive bowel sounds. Nontender. No organomegaly. MUSCULOSKELETAL: No clubbing or cyanosis. Pulses are 2+. CENTRAL NERVOUS SYSTEM (MANAGER PRINT): No focal deficit. Power is 5/5 in all extremities. LABORATORY REVIEW: Complete blood count (CBC) showed a WBC of 5.6, hemoglobin 9.3, platelets are 219. Basic metabolic profile (BMP) showed sodium 139, potassium 3.9, chloride 112, bicarbonate 19, BUN 33, creatinine is 1.27. CURRENT INPATIENT MEDICATIONS: The patient's medications were all reviewed by me. He was started on Lasix 60 mg daily yesterday, I have increased it to 60 mg by mouth twice a day. IV Flagyl has been stopped now. No other change in the medications today. ASSESSMENT AND PLAN: 1. Acute renal failure superimposed on chronic kidney disease. The patient's renal function is stable. Creatinine is 1.2, which stable, okay to increase the dose of diuretics. 2. Chronic diastolic congestive heart failure. The patient shows signs of volume overload. She has 1+ edema. She was given aggressive IV fluids and blood because of gastrointestinal (GI) bleed. I am increasing the Lasix dose of 60 mg by mouth twice a day which is her home today. Continue spironolactone 25 mg by mouth daily. 3. Hypokalemia. Potassium level has improved to 3.9. No need to followup with potassium at this point. Continue spironolactone at this point. 4. Acute gastrointestinal (GI) bleed. Patient is not bleeding anymore. Hemoglobin is stable at 9.3. DISPOSITION: Patient's renal function is stable, close to baseline. Nephrology service is going to sign off at this moment. Please call nephrology service for any help in the management of this patient during this hospitalization. She needs to followup with nephrology as outpatient.
[2018-10-23] MEDS ORDERED: diphenhydrAMINE INJ 50MG/ML VIAL (J1200) IV ONE (19:00)
--- NOTE | 2018-10-23 21:01 | DSES ---
DATE OF ADMISSION: 10/18/2018 DATE OF DISCHARGE: Discharge delayed due to physical therapy (PT). PRIMARY CARE PROVIDER: Robert Benjamin MD GENERAL SURGEON: Dr. John Lopez TRAIN OPERATIONS SUPERVISOR: Dr. Burton FINAL DIAGNOSES: 1. Acute blood loss anemia secondary to gastrointestinal bleed with hypovolemic hemorrhagic shock. 2. Colitis. 3. Acute on chronic renal disease due to prerenal azotemia in the setting of renal failure. 4. Diabetes mellitus type 2. 5. Hypothyroidism. 6. Congestive heart failure (CHF) with diastolic dysfunction. 7. Gastroesophageal reflux disease (GERD). 8. Gout. 9. History of atrial fibrillation. 10. History of Clostridium (C.) difficile. HISTORY OF PRESENT ILLNESS: This is an 83-year-old female patient with underlying medical history of atrial fibrillation on Pradaxa, CHF, dyslipidemia, hypothyroidism, peptic ulcer disease, GERD, chronic kidney disease. The patient presented to the emergency room with loose stool, which were initially melanotic and then bright red blood per rectum for 1-1/2 days. Imaging studies in the emergency room suggested cirrhosis. The patient denies any alcohol use. Denies any abdominal pain. In the emergency department, the patient has dark stool, as well as bright red blood noted in her rectum. She was also noted to have coffee ground emesis. The patient is not aware of any diagnosis of cirrhosis. The patient is on Pradaxa. INR is 3.1. Also, laboratories show acute on chronic renal insufficiency. Denies any shortness of breath. Reported being weak and lightheaded. HOSPITAL COURSE: The patient was found to be hypotensive initially, given 5 units packed red blood cells and admitted to intensive care unit (ICU). Emergent esophagogastroduodenoscopy (EGD) done by Dr. Lopez and finding only gastritis and no active bleeding. Subsequently, the patient is monitored in the intensive care unit (ICU). Initially, the patient was also oliguric. Nephrology consulted. Kidney function improved after transfusion. Gifford catheter was initially placed and later discontinued. Furthermore, the patient was also initially started on antibiotics given CT findings of colitis. The patient's symptoms gradually improved and later transferred out of ICU to general medical/surgical floor. While on the floor, the patient developed two more episodes of melena with further worsening anemia. Subsequently, the patient was transferred back to ICU and surgery did a colonoscopy with no acute findings. The patient's hemoglobin and hematocrit remained relatively stable. On presentation, the patient was also given Praxbind for reversal of Pradaxa and Dr. 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 After colonoscopy, the patient's hemoglobin and hematocrit remained relatively stable. Aspirin was restarted. The patient was monitored. Physical therapy (PT) was ordered for deconditioning. The patient is currently tolerating oral and in no acute distress. Working with physical therapy (PT). Discharge was delayed due to physical therapy (PT). PHYSICAL EXAMINATION: VITAL SIGNS: Temperature 96, pulse 70, respirations 18, blood pressure 133/68, pulse oximetry 96% on room air. GENERAL: The patient is comfortable and in no acute distress. HEENT: Normocephalic, atraumatic. PULMONARY: Bilaterally clear. CARDIAC: Regular. S1, S2. ABDOMEN: Soft, nontender. Positive bowel sounds. EXTREMITIES: No clubbing, cyanosis or edema. LABORATORY: WBC 5.6, hemoglobin and hematocrit 9.3/29.2, platelets 219. Chemistry: Sodium 139, potassium 3.9, chloride 112, bicarbonate 19, BUN 33, creatinine 1.27. ASSESSMENT AND PLAN: This is an 83-year-old female patient with underlying medical history of atrial fibrillation on Pradaxa, congestive heart failure (CHF), dyslipidemia, hypothyroidism, peptic ulcer disease, gastroesophageal reflux disease (GERD), cirrhosis, chronic kidney disease, who presented to the emergency room with melanotic stool and bright red blood per rectum for 1-1/2 days, as well as coffee ground emesis, admitted with acute blood loss anemia, hypovolemic hemorrhagic shock. 1. Acute blood loss anemia secondary to gastrointestinal bleed with hypovolemic hemorrhagic shock. Consulted general surgery. Transfused a total of 7 units packed red blood cells with improvement. Status post esophagogastroduodenoscopy (EGD) and colonoscopy. Carafate, proton pump inhibitor recommended. Initially has been on octreotide but that was later discontinued. Praxbind initially given. Course was complicated with rebleed, for which colonoscopy was done. Needs outpatient followup with general surgery. Questionable colitis versus malignancy on CT scan, status post colonoscopy. Initially on antibiotics and currently discontinued. 2. Acute on chronic kidney disease due to prerenal azotemia from hemorrhagic shock and also hyperkalemia. Kidney function returned to baseline. Appreciate nephrology assistance. Restarted on Lasix and spironolactone. 3. Diabetes. Holding oral medications. Basal bolus insulin. 4. Hypothyroidism. Continue Synthroid. 5. CHF with diastolic dysfunction. Lasix and spironolactone have been restarted per nephrology. Continue to monitor. 6. Gastroesophageal reflux disease (GERD). Continue proton pump inhibitor. 7. Gout. We will resume home medications. 8. Deep vein thrombosis (DVT) prophylaxis. The patient is on thromboembolic compression stockings (TEDS) and sequentials while inpatient. 9. History of Clostridium (C.) difficile, probiotics provided. 10. Atrial fibrillation. Case discussed with Dr. Lin. Risks and benefits explained to the patient. Holding anticoagulation. Continue aspirin. DISPOSITION: Pending physical therapy (PT). DISCHARGE MEDICATIONS: - spironolactone 25 mg by mouth in the morning - allopurinol 300 mg by mouth at night - aspirin 81 mg by mouth daily - calcium and vitamin D by mouth twice a day - ferrous sulfate 325 mg by mouth twice a day - Flonase nasal spray daily as needed - Lasix 60 mg by mouth twice a day - gemfibrozil 600 mg by mouth twice a day - glimepiride 2 mg by mouth daily and 1 mg by mouth at night - Synthroid 37.5 mcg by mouth daily - loratadine 10 mg by mouth daily - metformin 1000 mg by mouth twice a day - metoprolol succinate 100 mg by mouth daily in the morning and 50 mg by mouth at night - Carafate 1 gram by mouth before food and nightly - omeprazole 40 mg by mouth twice a day DISCHARGE INSTRUCTIONS: Please see primary care provider in 7 days. Check CBC, blood pressure and diabetic control as per primary. Please see home teaching grades 7 and 8 teacher, Dr. Lin, in 2 weeks. Restarting anticoagulation as per Dr. Lin. Risks and benefits explained to the patient. Please see general surgeon, Dr. Lopez, in 2 to 3 weeks. Return if symptoms worsen. Daily weights. Call provider is weight gain more than 3 pounds. Discharge is pending physical therapy (PT). Likely discharge 10/24/2018.
[2018-10-24 04:00] VITALS: BP 107/52
[2018-10-24 05:38] LABS: HEMATOCRIT 30.8 % (36.0-47.0); HEMOGLOBIN 9.6 g/dl (12.0-15.5); MEAN CORPUSCULAR HEMOGLOBIN 29.4 pg (27.0-33.0); MEAN CORPUSCULAR HGB CONC 31.2 g/dl (32.0-36.5); MEAN CORPUSCULAR VOLUME 94.2 fl (80.0-96.0); PLATELET COUNT, AUTOMATED 226 10^3/uL (150-450); RED BLOOD COUNT 3.27 10^6/uL (4.00-5.40); WHITE BLOOD COUNT 5.5 10^3/uL (4.0-10.0)
[2018-10-24 05:48] LABS: INR 1.3; PROTHROMBIN TIME 16.4 SECONDS (12.1-14.4)
[2018-10-24 05:56] LABS: ALBUMIN 2.6 GM/DL (3.2-5.2); BILIRUBIN,TOTAL 0.4 MG/DL (0.2-1.0); CALCIUM LEVEL 7.2 MG/DL (8.8-10.2); CREATININE FOR GFR 1.16 MG/DL (0.55-1.30); GLOMERULAR FILTRATION RATE 47.7 (>32); MAGNESIUM LEVEL 1.7 MG/DL (1.8-2.4); TOTAL PROTEIN 5.4 GM/DL (6.4-8.2)
[2018-10-24] MEDS: LEVOTHYROXINE 75MCG TABLET (0.075MG) PO SCH (06:34)
[2018-10-24] MEDS ORDERED: MAG SULF 1GM/100ML (MAG RUN) 1 GM in APPROPRIATE DILUENT 1 EA IV ONE (07:15)
[2018-10-24] MEDS: LACTOBACILLUS ACIDOPHILUS CAP (BACID) PO SCH ×2 (07:39→12:12)
[2018-10-24] MEDS: SUCRALFATE SUSP 1GM/10ML UD PO SCH ×2 (07:39→12:12)
[2018-10-24] MEDS: HumaLOG INSULIN (NovoLOG) PER UNIT SC SCH ×2 (07:39→12:12)
[2018-10-24 08:00] VITALS: BP 117/57
[2018-10-24 08:48] VITALS: BP 117/57
[2018-10-24] MEDS: PANTOPRAZOLE 40MG INJ (PROTONIX) (C9113) IV SCH (08:48)
[2018-10-24] MEDS: METOPROLOL SUCC (TopROL XL) 50MG **XL** TAB PO SCH (08:48)
[2018-10-24] MEDS: FERROUS SULFATE 325MG TAB PO SCH (08:49)
[2018-10-24] MEDS: FUROSEMIDE 20 MG TAB PO SCH (08:49)
[2018-10-24] MEDS: SPIRONOLACTONE 25 MG TAB PO SCH (08:49)
[2018-10-24] MEDS: ASPIRIN 81 MG ENTERIC TAB PO SCH (08:49)
--- NOTE | 2018-10-24 15:14 | CR ---
DATE OF CONSULTATION: 10/18/2018 CHIEF COMPLAINT: GI bleeding. HISTORY OF PRESENT ILLNESS The patient is an 83-year-old female with a history of atrial fibrillation (a-fib) currently on Pradaxa. She also has congestive heart failure (CHF), hyperlipidemia, hypothyroidism, peptic ulcer disease, gastroesophageal reflux disease, chronic kidney disease and cirrhosis. She came into emergency room with complaints of diarrhea, melanotic and bloody stools and currently has some hematemesis as well. She has been going through the bloody stools and melanotic stools for a few days now. Yesterday she had some coffee-ground emesis and currently in emergency room she is having some bright red hematemesis. She is weak, hemoglobin is down to 4.6 in the emergency room. She is currently being transfused. She has been given 2 units of blood so far and has 2 more on hold. Her blood pressure was initially not responding to fluid boluses, however, after the first 2 units of blood is starting to stabilize. She denies any fevers or chills. No abdominal pains. No acid reflux or heartburn. No chest pain. No shortness of breath. She has had a history of GI bleeding in the past and has undergone upper and lower endoscopy that is been negative. However with her current bright red hematemesis, recommendation is to consider a repeat upper endoscopy as soon as she becomes stabilized. PAST MEDICAL HISTORY: A-fib. CHF. Hyperlipidemia. Hypothyroidism. Peptic ulcer disease. Gastroesophageal reflux disease (GERD). Chronic kidney disease. Cirrhosis. PAST SURGICAL HISTORY: Right breast biopsy. Pacemaker. Appendectomy. Cholecystectomy. Knee replacement. Hysterectomy. SOCIAL HISTORY: Denies drug, alcohol or tobacco abuse. FAMILY HISTORY: Noncontributory. MEDICATIONS: Please see medical record. ALLERGIES: CODEINE, LATEX and PINE. REVIEW OF SYSTEMS: Pertinent positives stated in HPI. PHYSICAL EXAMINATION General: Alert and oriented times three. Vitals: Temperature 96, pulse 71, respiration 20, blood pressure 102/52, pulse ox 100% on room air. HEENT: Pupils equally round and react to light and accommodation. Heart: S1, S2 regular rate and rhythm. Lungs: Clear to auscultation bilaterally. Abdomen: Soft and nontender, nondistended. Extremities: Bilateral lower extremity edema. LABORATORY DATA Hemoglobin 4.6, hematocrit 16, platelets 220. Potassium 5.4, creatinine 2.33. IMAGING STUDIES CT abdomen and pelvis showed cirrhotic liver, moderate free fluid along the left lateral abdomen. Small amount of perihepatic and perisplenic right lower quadrant pelvic free fluid, extensive descending and sigmoid colon diverticulosis. Fluid and stranding seen adjacent to the cecum, ileocecal junction and descending colon. There is an irregular thickening in the anal perianal region; underlying infectious, inflammatory, neoplastic process cannot be excluded. Bulky adenopathy in the right inguinal region and along the HIRA chain. Status post hysterectomy and cholecystectomy. Numerous bilateral renal cysts including a 1.1 cm dense left lower renal pole cyst. ASSESSMENT/PLAN The patient is an 83-year-old female with GI bleeding, upper versus lower with hematemesis and melanotic stools. She also is anemic and is symptomatic from that. Currently has had 2 units of blood. I have requested that they start giving the third one. Once the third one is being started, she can be taken to the operating room for emergent upper endoscopy to evaluate for cause of her hematemesis. Once that is completed, she will be transferred to the ICU and monitored closely for the next 24-48 hours. If the bleeding stops then we can consider restarting her anticoagulation in the near future, however, if it does not, then we can consider colonoscopy on an as-needed basis. Thank you for the consult.
== END 2018-10-24 13:06 | disposition home or self-care (01) | DRG 377 ==
LOC: M ED 03:16 → M ED INP 05:57 → M ICU 10:12 → M MS5PR 10-19 15:28 → M ICU 10-20 08:35 → M PCU 10-21 19:57
PROVIDERS: ADMIT Internal Medicine; ATTEND Hospitalist
PROC: 30233N1 Transfusion of Nonautologous Red Blood Cells into Peripheral Vein, Percutaneous Approach (ICD-10-PCS; 2018-10-18)
PROC: 0DJ08ZZ Inspection of Upper Intestinal Tract, Via Natural or Artificial Opening Endoscopic (ICD-10-PCS; principal; 2018-10-18 07:18)
PROC: 0DJD8ZZ Inspection of Lower Intestinal Tract, Via Natural or Artificial Opening Endoscopic (ICD-10-PCS; 2018-10-21)
DX: K29.81 Duodenitis with bleeding (principal); R57.1 Hypovolemic shock; D62 Acute posthemorrhagic anemia; N17.9 Acute kidney failure, unspecified; N18.4 Chronic kidney disease, stage 4 (severe); I50.32 Chronic diastolic (congestive) heart failure; I48.91 Unspecified atrial fibrillation; E78.5 Hyperlipidemia, unspecified; E03.9 Hypothyroidism, unspecified; E87.5 Hyperkalemia; K57.30 Diverticulosis of large intestine without perforation or abscess without bleeding; E11.22 Type 2 diabetes mellitus with diabetic chronic kidney disease; E66.01 Morbid (severe) obesity due to excess calories; E87.6 Hypokalemia; M10.9 Gout, unspecified; K21.9 Gastro-esophageal reflux disease without esophagitis; K64.8 Other hemorrhoids; E83.42 Hypomagnesemia; E83.52 Hypercalcemia; K74.60 Unspecified cirrhosis of liver; Z95.0 Presence of cardiac pacemaker; Z90.49 Acquired absence of other specified parts of digestive tract; Z87.891 Personal history of nicotine dependence; Z79.01 Long term (current) use of anticoagulants; Z79.82 Long term (current) use of aspirin; Z79.84 Long term (current) use of oral hypoglycemic drugs; Z79.899 Other long term (current) drug therapy; Z96.653 Presence of artificial knee joint, bilateral; Z88.5 Allergy status to narcotic agent; Z88.8 Allergy status to other drugs, medicaments and biological substances; Z91.040 Latex allergy status; Z68.36 Body mass index [BMI] 36.0-36.9, adult

== ENCOUNTER 2018-10-29 11:25 | Inpatient (IN) | payer MEDICARE, OTHER ==
[~2018-10-29] VITALS: Ht 149.9 cm; Wt 97.6 kg
[~2018-10-29 11:25] MED LIST changes: +ALDA25TA2 PO; +CALCTAB74 PO
[2018-10-29] MEDS ORDERED: SPIR-10 PO (11:38)
[2018-10-29] MEDS ORDERED: OMEP-218 PO (11:38)
[2018-10-29 12:05] LABS: BASO % 0.8 % (0.0-1.0); EOS % 0.8 % (0.0-3.0); HEMATOCRIT 33.7 % (36.0-47.0); HEMOGLOBIN 10.7 g/dl (12.0-15.5); LYMPH # 0.5 10^3/uL (1.5-4.5); LYMPH % 10.3 % (24.0-44.0); MEAN CORPUSCULAR HEMOGLOBIN 30.3 pg (27.0-33.0); MEAN CORPUSCULAR HGB CONC 31.8 g/dl (32.0-36.5); MEAN CORPUSCULAR VOLUME 95.5 fl (80.0-96.0); MONO # 0.4 10^3/uL (0.0-0.8); NEUTROPHILS # 3.7 10^3/uL (1.8-7.7); NEUTROPHILS % 78.3 % (36.0-66.0); PLATELET COUNT, AUTOMATED 272 10^3/uL (150-450); RED BLOOD COUNT 3.53 10^6/uL (4.00-5.40); WHITE BLOOD COUNT 4.8 10^3/uL (4.0-10.0)
[2018-10-29 12:15] LABS: INR 1.11; PROTHROMBIN TIME 14.5 SECONDS (12.1-14.4)
[2018-10-29 12:16] LABS: PARTIAL THROMBOPLASTIN TIME 30.6 SECONDS (25.4-37.6)
[2018-10-29 12:30] LABS: BLOOD UREA NITROGEN 27 MG/DL (7-18); CALCIUM LEVEL 8.5 MG/DL (8.8-10.2); CARBON DIOXIDE LEVEL 24 MEQ/L (21-32); CHLORIDE LEVEL 106 MEQ/L (98-107); CPK CREATINE PHOSPHOKINASE 36 U/L (26-192); CREATININE FOR GFR 1.16 MG/DL (0.55-1.30); GLOMERULAR FILTRATION RATE 47.7 (>32); GLUCOSE, FASTING 71 MG/DL (70-100); NT-PRO BNP 2917 PG/ML (<450); POTASSIUM SERUM 4.1 MEQ/L (3.5-5.1); SODIUM LEVEL 137 MEQ/L (136-145); TROPONIN I < 0.02 NG/ML (< 0.10)
[2018-10-29] MEDS ORDERED: ISOVUE-370 76% 125ML VIAL (Q9967 PER ML) As Ordered ONE (12:45)
--- NOTE | 2018-10-29 13:35 | REP ---
CHEST X-RAY: Single view. HISTORY: Short of breath. Comparison chest x-ray: September 12, 2018. FINDINGS: EKG monitoring electrodes are seen. A bipolar pacemaker is seen in the heart. Heart size is borderline. Today's radiograph is exposed at a more lordotic angle. Lung maria appear clear. Pleural angles are sharp. Pulmonary vasculature is somewhat cephalized. IMPRESSION: Borderline heart size with pacemaker. Cephalization of the pulmonary vasculature. No evidence of pleural effusion or pulmonary edema. Electronically Signed by William Ortega MD 10/29/2018 03:02 P
--- NOTE | 2018-10-29 14:24 | REP ---
CT PULMONARY ANGIOGRAM: WITH IV CONTRAST. HISTORY: Shortness of breath. COMPARISON STUDY: Comparison study, November 24, 2016. CONTRAST DOSE: 100 mL of Isovue [address] TECHNIQUE: Helical scanning is acquired and overlapping 1.5 mm and contiguous 3 mm axial images are reformatted. In addition, maximum intensity projection and multiplanar re-formation images are generated in sagittal and coronal imaging projections. CT PULMONARY ANGIOGRAPHIC FINDINGS: There is good opacification of the pulmonary arterial tree, and there is no CT evidence of pulmonary embolus. There is no evidence of aortic dissection or aneurysm. There is vascular calcification. Cardiomegaly is observed with pacemaker in the right heart. There are very small bilateral pleural effusions. There is no significant pericardial effusion. There is upper abdominal ascites visible. There are multiple tiny calcified pulmonary parenchymal granulomas. These are unchanged. No pulmonary mass or infiltrate is seen. No bony destructive lesion is seen. IMPRESSION: No CT evidence of pulmonary embolus. Tiny amount of pleural effusion. Cardiomegaly with pacemaker. Upper abdominal ascites. Otherwise no acute disease. Electronically Signed by William Ortega MD 10/29/2018 03:06 P
--- NOTE | 2018-10-29 14:45 | REP ---
CT ABDOMEN AND PELVIS WITH IV BUT WITHOUT ORAL CONTRAST: HISTORY: Shortness of breath. CT CONTRAST DOSE: 100 mL of intravenous Isovue 370. Comparison CT study October 18, 2018. CT FINDINGS: Preliminary digital telephone solicitor supervisor radiograph demonstrates an unremarkable bowel gas pattern. There is a pacemaker in the right heart. Tiny amounts of pleural fluid is seen. There is mild diffuse abdominal ascites. There is a little more ascites than was present on October 18, 2018. No adrenal lesion is seen. There are renal cortical cysts present bilaterally. The kidneys enhance symmetrically and are otherwise morphologically intact. No hydronephrosis is seen. No pancreatic abnormality is observed. Gallbladder is surgically absent. There are somewhat tortuous dilated venous structures anterior to the aortic bifurcation consistent with dilated inferior mesenteric veins. These were thought to be lymph nodes on the recent CT study of October 18, 2018. There is no evidence of intra-abdominal lymphadenopathy. There is left colonic diverticulosis. The patient is status post partial left colectomy. There is some right colonic diverticulosis. There is no CT evidence of diverticulitis. A low anorectal suture line is again seen. Today's CT study again demonstrates a diffuse pattern of subcutaneous edema and dermal thickening in the lower anterior abdominal wall question cellulitis. No abdominal wall defect is seen. The patient is status post ventral hernia repair. No abscess is appreciated. No evidence of gastrointestinal obstruction. IMPRESSION: 1. Mild diffuse ascites, somewhat increased from the recent prior study. 2. Dilated inferior mesenteric veins, no adenopathy. 3. Left and right colonic diverticulosis without CT evidence of diverticulitis. 4. Status post cholecystectomy hysterectomy and partial colectomy. 5. Multiple bilateral renal cysts. Electronically Signed by William Ortega MD 10/29/2018 03:08 P
[2018-10-29] MEDS ORDERED: DEXTROSE 50% 50 ML SYRINGE As Ordered ONE (15:41)
[2018-10-29] MEDS ORDERED: cefTRIAXone SOD 1 GM in D5W MINI-BAG PLUS 50 ML IV ONE (15:45)
[2018-10-29] MEDS ORDERED: DEXTROSE 50% 50 ML SYRINGE IV STA (15:49)
[2018-10-29] MEDS ORDERED: FUROSEMIDE 40 MG/4 ML VIAL (J1940) IV ONE (16:00)
[2018-10-29] MEDS ORDERED: GLUCAGON FOR INJ 1 MG VIAL (J1610) SC PRN (17:30)
[2018-10-29] MEDS ORDERED: GLUCOSE 4 GM CHEW TABLET PO PRN (17:30)
[2018-10-29] MEDS ORDERED: FLUTICASONE PROP 0.05% NASAL SPRAY 16 GM (FLONASE) PRN (17:30)
[2018-10-29] MEDS ORDERED: DEXTROSE 50% 50 ML SYRINGE IV PRN (17:30)
--- NOTE | 2018-10-29 17:55 | HPEPDOC ---
[facility] Medical History & Physical Date of Admission Oct 29, 2018 Attending Physician: ALFONSO THOMPSON MD History and Physical CHIEF COMPLAINT: Lightheadedness, Double vision HISTORY OF PRESENT ILLNESS: Patient is an 83-year-old female with a past medical history significant for atrial fibrillation, not on anticoagulation secondary to recent GI bleed, congestive heart failure, hyperlipidemia, hypothyroidism, peptic ulcer disease, gastric esophageal reflux disease and chronic kidney disease who presented to the [facility] emergency department with complaint of lightheadedness and double vision. Patient states that she was recently discharged from [facility] for a gastrointestinal bleed. She does admit that she still has some melanotic stools. Patient states that this morning she had awoken up and went to go make breakfast. She stated at that time that she felt somewhat lightheaded and she had a heavy feeling in her body. She described as heavy feeling as "sand weighing me down". She states that at that time she had checked her blood sugar which had been 56. She decided to sit down and eat some oatmeal. After eating her oatmeal. She checked her blood sugar again and found to be in the 40s. Patient stated that she started to feel sweaty and had difficulty breathing. Her daughter who was present at the time became worried and brought the patient to the emergency department. Patient states that she has recently noticed that she is becoming more more hypoglycemic at home. She states that she is only on metformin. However, a review of the patient's medical record to determine that she is also on glimepiride. At the emergency department, the patient was found to have a blood sugar of 36 and was given D50. Her blood sugar was corrected and the patient stated that she began to feel better. Patient states that she is chronically short of breath and currently she is at her baseline. In the emergency department, she received a chest x-ray was demonstrated a borderline heart size with pacemaker. Cephalization of pulmonary vasculature, but no evidence of pleural effusion, pulmonary edema. 's. In addition the patient did complain of abdominal pain and on examination she did have erythematous abdomen. She received a CT angiography, which did not show pulmonary embolus. It did demonstrate a tiny amount of pleural effusion and upper abdominal ascites but otherwise no acute disease. Lastly, she received a CT of the abdomen and pelvis as she did complain of abdominal pain. This demonstrated mild diffuse ascites, somewhat increased with recent prior studies dilated inferior mesenteric veins with no adenopathy. Left and right colonic diverticulosis without CT evidence of diverticulitis, status post cholecystectomy, hysterectomy and partial colectomy, multiple bilateral renal cysts. In addition, her CT demonstrated diffuse pattern of subcutaneous edema and a dermal thickening in the lower anterior abdominal wall with questionable cellulitis. The patient has not complained of fevers or chills. She has remained afebrile in the emergency department. She does not have an elevated white count and her lactic acid is 0.8. The hospital service was consulted and the patient was admitted for further evaluation and management for hypoglycemia and abdominal wall cellulitis. PAST MEDICAL HISTORY: 1. Atrial fibrillation, not on anticoagulation secondary to GI bleed. Currently on aspirin 2. Congestive heart failure. 3. Hyperlipidemia, neck signed for hypothyroidism 5. Peptic ulcer disease. 6. Gastroesophageal reflux disease. 7. Chronic kidney disease. PAST SURGICAL HISTORY: 1. Right breast biopsy. 2. Pacemaker placement. 3. Appendectomy. 4. Cholecystectomy. 5. Knee replacement 6. Total abdominal hysterectomy SOCIAL HISTORY: Patient is a former smoker. She denies any illicit drug use. She denies any alcohol use FAMILY HISTORY: Noncontributory ALLERGIES: Please see below. REVIEW OF SYSTEMS: CONSTITUTIONAL: Denies fevers, chills, night sweats, unintentional weight gain or weight loss. HEENT: Denies cough, headache, dysphagia. Admits to double vision CARDIOVASCULAR:. Denies chest pain, denies palpitations. Denies feelings of heart racing. RESPIRATORY:. Admits to shortness of breath, no different from baseline. Denies cough. Denies wheezing. GASTROINTESTINAL: Admits to abdominal pain in the left and right lower quadrant. Still occasional diarrhea. Denies constipation. Admits to occasional melanotic stool GENITOURINARY:. Denies dysuria, increased frequency. SKIN:. Admits to redness on her abdomen. Denies any other rashes or lesions. MUSCULOSKELETAL:. Denies any muscular weakness. NEUROLOGICAL:. Denies change in speech or gait. PSYCHIATRIC: Denies depression or anxiety. ENDOCRINE:. Denies heat intolerance or cold intolerance HEMATOLOGIC/LYMPHATIC: Admits to easy bleeding HOME MEDICATIONS: Please see below. PHYSICAL EXAMINATION: VITAL SIGNS: Temperature 96.4, pulse, 69, respiratory rate 17, blood pressure, 161\\75, pulse oximetry 100 % on room air. GENERAL APPEARANCE:. She is awake, alert and oriented. . She is lying comfortably in bed. She appears in no acute distress. She is conversive HEENT:. Atraumatic, normocephalic. Eyes are nonicteric. Trachea is midline. Mucous membranes are pink and moist. Extraocular muscles are intact CARDIOVASCULAR:. Irregularly irregular rhythm., Regular rate. No clicks, rubs or murmurs LUNGS:. Clear vesicular lung sounds bilaterally. Good respiratory effort. No wheezes, rhonchi or rales. No crackles. ABDOMEN:, Obese, nondistended, tenderness to palpation of left and right lower quadrant. No rebound tenderness or guarding. erythema of the lower abdomen without warmth to touch. Negative fluid wave EXTREMITIES: 3 mm pitting edema in bilateral lower extremities, 2+ posterior tibial pulses 2+ radial pulses bilaterally. NEUROLOGICAL:. No focal neurological deficits. PSYCHIATRIC: Mood and affect appear appropriate. LABORATORY DATA: See below. IMAGING: CHEST X-RAY: Single view. HISTORY: Short of breath. Comparison chest x-ray: September 12, 2018. FINDINGS: EKG monitoring electrodes are seen. A bipolar pacemaker is seen in the heart. Heart size is borderline. Today's radiograph is exposed at a more lordotic angle. Lung maria appear clear. Pleural angles are sharp. Pulmonary vasculature is somewhat cephalized. IMPRESSION: Borderline heart size with pacemaker. Cephalization of the pulmonary vasculature. No evidence of pleural effusion or pulmonary edema. Electronically Signed by William Ortega MD 10/29/2018 03:[address] PULMONARY ANGIOGRAM: WITH IV CONTRAST. HISTORY: Shortness of breath. COMPARISON STUDY: Comparison study, November 24, 2016. CONTRAST DOSE: 100 mL of Isovue [address] TECHNIQUE: Helical scanning is acquired and overlapping 1.5 mm and contiguous 3 mm axial images are reformatted. In addition, maximum intensity projection and multiplanar re-formation images are generated in sagittal and coronal imaging projections. CT PULMONARY ANGIOGRAPHIC FINDINGS: There is good opacification of the pulmonary arterial tree, and there is no CT evidence of pulmonary embolus. There is no evidence of aortic dissection or aneurysm. There is vascular calcification. Cardiomegaly is observed with pacemaker in the right heart. There are very small bilateral pleural effusions. There is no significant pericardial effusion. There is upper abdominal ascites visible. There are multiple tiny calcified pulmonary parenchymal granulomas. These are unchanged. No pulmonary mass or infiltrate is seen. No bony destructive lesion is seen. IMPRESSION: No CT evidence of pulmonary embolus. Tiny amount of pleural effusion. Cardiomegaly with pacemaker. Upper abdominal ascites. Otherwise no acute disease. Electronically Signed by William Ortega MD 10/29/2018 03:[address] ABDOMEN AND PELVIS WITH IV BUT WITHOUT ORAL CONTRAST: HISTORY: Shortness of breath. CT CONTRAST DOSE: 100 mL of intravenous Isovue 370. Comparison CT study October 18, 2018. CT FINDINGS: Preliminary digital equalizer operator radiograph demonstrates an unremarkable bowel gas pattern. There is a pacemaker in the right heart. Tiny amounts of pleural fluid is seen. There is mild diffuse abdominal ascites. There is a little more ascites than was present on October 18, 2018. No adrenal lesion is seen. There are renal cortical cysts present bilaterally. The kidneys enhance symmetrically and are otherwise morphologically intact. No hydronephrosis is seen. No pancreatic abnormality is observed. Gallbladder is surgically absent. There are somewhat tortuous dilated venous structures anterior to the aortic bifurcation consistent with dilated inferior mesenteric veins. These were thought to be lymph nodes on the recent CT study of October 18, 2018. There is no evidence of intra-abdominal lymphadenopathy. There is left colonic diverticulosis. The patient is status post partial left colectomy. There is some right colonic diverticulosis. There is no CT evidence of diverticulitis. A low anorectal suture line is again seen. Today's CT study again demonstrates a diffuse pattern of subcutaneous edema and dermal thickening in the lower anterior abdominal wall question cellulitis. No abdominal wall defect is seen. The patient is status post ventral hernia repair. No abscess is appreciated. No evidence of gastrointestinal obstruction. IMPRESSION: 1. Mild diffuse ascites, somewhat increased from the recent prior study. 2. Dilated inferior mesenteric veins, no adenopathy. 3. Left and right colonic diverticulosis without CT evidence of diverticulitis. 4. Status post cholecystectomy hysterectomy and partial colectomy. 5. Multiple bilateral renal cysts. Electronically Signed by William Ortega MD 10/29/2018 03:08 P MICROBIOLOGY: Please see below. ASSESSMENT: Patient is a 83-year-old female with a past medical history of atrial fibrillation, currently only on aspirin for antiplatelet coagulation as she has had recent GI bleed, hypothyroidism,, gastroesophageal reflux disease, Peptic Ulcer Disease, and congestive heart failure who presented to the [facility] emergency department with complaint of lightheadedness, double vision, shortness of breath, abdominal pain. Patient was found to have a blood glucose level of 36 emergency department and received D50. After administration of glucose. The patient noticed improvement in symptoms. She was also complaining of abdominal pain. CT imaging suggested a possible abdominal wall cellulitis. The patient was admitted for further evaluation and management PLAN: 1. Abdominal wall cellulitis -Patient presented with a reddened abdomen with tenderness to palpation. She receives ceftriaxone in the emergency room. She is going to be continued on Unasyn -Currently afebrile with blood cell count is not elevated. We'll continue to monitor. Likely will go home on by mouth antibiotics. Ex 2. Hypoglycemia. -Patient presented with hypoglycemic episode. This is likely the reason why she came into the emergency department. Patient stated that at home she frequently notices that she is having low blood sugars. She started taking her blood sugar at home because she noticed this. She states she is on metformin and a review of the medical records reveals that she is also on glimpiride. -Patient's diabetic medications are currently on hold. -Fingersticks every 6 hours -Consistent carbohydrate diet with sliding scale coverage -Patient will likely need adjustments to her at home diabetic regimen. 3. Atrial fibrillation. -Patient currently rate controlled. She is not on anticoagulation due to a GI bleed. She is currently on aspirin. Will continue. 4. GERD and peptic ulcer disease -Will continue home omeprazole. -Sucralfate 5. Hypothyroidism. -We will continue Synthroid. 6. Congestive heart failure. -Currently stable. We'll continue spironolactone, metoprolol and furosemide 7. DVT prophylaxis -Jose's and sequentials Vital Signs Vital Signs Date Time Temp Pulse Resp B/P (MAP) Pulse Ox O2 Delivery O2 Flow Rate FiO2 10/29/18 16:58 96.4 69 17 161/75 (103) 100 Room Air 10/29/18 12:00 99 Laboratory Data Labs 24H Laboratory Tests 2 10/29/18 11:51: Immature Granulocyte % (Auto) 0.8, White Blood Count 4.8, Red Blood Count 3.53L, Hemoglobin 10.7L, Hematocrit 33.7L, Mean Corpuscular Volume 95.5, Mean Corpuscular Hemoglobin 30.3, Mean Corpuscular Hemoglobin Concent 31.8L, Red Cell Distribution Width 18.0H, Platelet Count 272, Neutrophils (%) (Auto) 78.3H, Lymphocytes (%) (Auto) 10.3L, Monocytes (%) (Auto) 9.0H, Eosinophils (%) (Auto) 0.8, Basophils (%) (Auto) 0.8, Neutrophils # (Auto) 3.7, Lymphocytes # (Auto) 0.5L, Monocytes # (Auto) 0.4, Eosinophils # (Auto) 0.0, Basophils # (Auto) 0.0, Nucleated Red Blood Cells % (auto) 0.0, Prothrombin Time 14.5H, Prothromb Time International Ratio 1.11, Activated Partial Thromboplast Time 30.6, Anion Gap 7 L, Glomerular Filtration Rate 47.7, Lactic Acid Level 0.8, Blood Urea Nitrogen 27H, Creatinine 1.16, Sodium Level 137, Potassium Level 4.1, Chloride Level 106, Carbon Dioxide Level 24, Calcium Level 8.5L, Total Creatine Kinase 36, Creatine Kinase MB 3.0, Creatine Kinase MB Relative Index 7.50H, Troponin I < 0.02, [id number] Natriuretic Peptide 2917H 10/29/18 15:39: Bedside Glucose (Misc Panel) 36*L 10/29/18 16:13: Bedside Glucose (Misc Panel) 117H 10/29/18 16:22: Urine Color STRAW, Urine Appearance CLEAR, Urine pH 5.0, Urine Specific [place] 1.013, Urine Protein NEGATIVE, Urine Glucose (UA) NEGATIVE, Urine Ketones NEGATIVE, Urine Blood NEGATIVE, Urine Nitrite NEGATIVE, Urine Bilirubin NEGATIVE, Urine Urobilinogen 0.2, Urine Leukocyte Esterase NEGATIVE, Urine WBC (Auto) 0, Urine RBC (Auto) 0, Urine Hyaline Casts (Auto) 3, Urine Bacteria (Auto) NEGATIVE, Urine Squamous Epithelial Cells 0, Urine Sperm (Auto) CBC/BMP Laboratory Tests 10/29/18 11:51 Red Blood Count 3.53 L, Mean Corpuscular Volume 95.5, Mean Corpuscular Hemoglobin 30.3, Mean Corpuscular Hemoglobin Concent 31.8 L, Red Cell Distribution Width 18.0 H, Neutrophils (%) (Auto) 78.3 H, Lymphocytes (%) (Auto) 10.3 L, Monocytes (%) (Auto) 9.0 H, Eosinophils (%) (Auto) 0.8, Basophils (%) (Auto) 0.8, Neutrophils # (Auto) 3.7, Lymphocytes # (Auto) 0.5 L, Monocytes # (Auto) 0.4, Eosinophils # (Auto) 0.0, Basophils # (Auto) 0.0, Calcium Level 8.5 L, Total Creatine Kinase 36 Home Medications Scheduled Allopurinol (Zyloprim) 300 Mg Tab, 300 MG PO QHS Aspirin (Aspirin EC) 81 Mg Tabec, 81 MG PO DAILY Calcium/Vitamin D (Calcium 600+D 600-400 mg-Unit) 1 Tab Tab, 1 TAB PO BID Ferrous Sulfate (Ferrous Sulfate) 325 Mg Tab, 325 MG PO BID Furosemide (Furosemide) 40 Mg Tab, 60 MG PO BID Gemfibrozil (Gemfibrozil) 600 Mg Tab, 600 MG PO BID Glimepiride (Glimepiride) 2 Mg Tab, 2 MG PO DAILY Glimepiride (Glimepiride) 2 Mg Tab, 1 MG PO QHS Levothyroxine Sodium (Synthroid) 75 Mcg Tab, 37.5 MCG PO DAILY Loratadine (Loratadine) 10 Mg Tab, 10 MG PO DAILY Metformin Hydrochloride (Metformin HCl) 1,000 Mg Tab, 1,000 MG PO BID Metoprolol Succinate (Toprol Xl) 50 Mg Tab, 100 MG PO DAILY Metoprolol Succinate (Toprol Xl) 50 Mg Tab, 50 MG PO QHS Omeprazole (Omeprazole Dr) 20 Mg Cap, 40 MG PO BID Spironolactone (Spironolactone) 25 Mg Tab, 25 MG PO DAILY Sucralfate (Carafate) 1 Gm Tab, 1 GM PO ACHS Scheduled PRN Fluticasone Propionate (Flonase Allergy Relief) 50 Mcg/Act Spr, 1 SPRAY NA DAILY PRN for ALLERGIES Allergies Coded Allergies: MS - Latex (Verified Allergy, Severe, ANAPHYLAXIS, 12/17/17) MS - [place] (Verified Allergy, Unknown, PINE SAP, 12/17/17) MS - Codeine (Verified Adverse Reaction, Intermediate, DIZZINESS, BLURRED VISION, HEADACHE, DRY MOUTH, 12/17/17) GME ATTESTATION GME ATTESTATION My faculty preceptor for this patient encounter was physically present during the encounter and was fully available. All aspects of the patient interview, examination, medical decision making process, and medical care plan development were reviewed and approved by the faculty preceptor. The faculty preceptor is aware and concurs with the plan as stated in the body of this note and will attest to such by his/her cosignature. ILYA QUINTANA DO Oct 29, 2018 17:55
[2018-10-29] MEDS ORDERED: PILL CRUSHER/CUTTER 1 EACH XX PRN (18:00)
--- NOTE | 2018-10-29 19:57 | ECGEPIP ---
Stationary ECG Study [facility] - ED Test Date: 2018-10-29 Pat Name: ANTOINETTE GARCIA Department: Room: - Gender: F Oncology Navigator: LUAN : 1935 Requested By: Julia Jackson Order Number: [id number] Reading MD: Awasi Perez Measurements Intervals [place] Rate: 69 P: [place]: 0 QRS: -88 QRSD: 169 T: 88 QT: 459 QTc: 494 Interpretive Statements ELECTRONIC VENTRICULAR PACEMAKER SIMILAR TO 10/18/18 Electronically Signed On 10-29-2018 19:57:21 EDT by Awais Perez
[2018-10-29 20:37] VITALS: BP 150/77
[2018-10-29] MEDS ORDERED: HumaLOG INSULIN (NovoLOG) PER UNIT SC SCH (21:00)
[2018-10-29] MEDS: SUCRALFATE 1 GM TAB PO SCH (22:35)
[2018-10-29] MEDS: FERROUS SULFATE 325MG TAB PO SCH (22:36)
[2018-10-29] MEDS: OMEPRAZOLE 20 MG CAP PO SCH (22:36)
[2018-10-29] MEDS: ALLOPURINOL 300 MG TAB PO SCH (22:36)
[2018-10-29] MEDS: GEMFIBROZIL 600 MG TAB PO SCH (22:36)
[2018-10-29] MEDS: METOPROLOL SUCC (TopROL XL) 50MG **XL** TAB PO SCH (22:36)
[2018-10-29] MEDS: AMPICILLIN SOD/SULBACTAM SOD 3 GM in D5W MINI-BAG PLUS 100 ML IV SCH (22:37)
[2018-10-30] MEDS: LEVOTHYROXINE 75MCG TABLET (0.075MG) PO SCH (05:23)
[2018-10-30 05:32] LABS: BASO % 0.8 % (0.0-1.0); EOS # 0.1 10^3/uL (0.0-0.50); EOS % 2.5 % (0.0-3.0); HEMOGLOBIN 9.5 g/dl (12.0-15.5); LYMPH # 0.7 10^3/uL (1.5-4.5); LYMPH % 14.9 % (24.0-44.0); MEAN CORPUSCULAR HEMOGLOBIN 30.1 pg (27.0-33.0); MEAN CORPUSCULAR HGB CONC 31.7 g/dl (32.0-36.5); MEAN CORPUSCULAR VOLUME 94.9 fl (80.0-96.0); MONO # 0.6 10^3/uL (0.0-0.8); MONO % 11.9 % (0.0-5.0); NEUTROPHILS # 3.3 10^3/uL (1.8-7.7); NEUTROPHILS % 69.3 % (36.0-66.0); PLATELET COUNT, AUTOMATED 240 10^3/uL (150-450); RED BLOOD COUNT 3.16 10^6/uL (4.00-5.40); WHITE BLOOD COUNT 4.8 10^3/uL (4.0-10.0)
[2018-10-30] MEDS: HumaLOG INSULIN (NovoLOG) PER UNIT SC SCH ×4 (05:37→18:00)
[2018-10-30 06:00] VITALS: BP 155/70
[2018-10-30 06:03] LABS: CALCIUM LEVEL 7.9 MG/DL (8.8-10.2); CREATININE FOR GFR 1.18 MG/DL (0.55-1.30); GLOMERULAR FILTRATION RATE 46.8 (>32); POTASSIUM SERUM 4.2 MEQ/L (3.5-5.1)
[2018-10-30] MEDS ORDERED: HumaLOG INSULIN (NovoLOG) PER UNIT SC SCH (07:30)
[2018-10-30] MEDS: METOPROLOL SUCC (TopROL XL) 50MG **XL** TAB PO SCH ×2 (08:36→21:56)
[2018-10-30] MEDS: FUROSEMIDE 20 MG TAB PO SCH ×2 (08:36→18:09)
[2018-10-30] MEDS: SPIRONOLACTONE 25 MG TAB PO SCH (08:36)
[2018-10-30] MEDS: ASPIRIN 81 MG ENTERIC TAB PO SCH (08:37)
[2018-10-30] MEDS: SUCRALFATE 1 GM TAB PO SCH ×4 (08:37→21:56)
[2018-10-30] MEDS: GEMFIBROZIL 600 MG TAB PO SCH ×2 (08:37→21:56)
[2018-10-30] MEDS: FERROUS SULFATE 325MG TAB PO SCH ×2 (08:37→21:56)
[2018-10-30] MEDS: OMEPRAZOLE 20 MG CAP PO SCH ×2 (08:37→21:56)
[2018-10-30] MEDS: LORATADINE 10 MG TAB PO SCH (08:37)
[2018-10-30] MEDS: AMPICILLIN SOD/SULBACTAM SOD 3 GM in D5W MINI-BAG PLUS 100 ML IV SCH ×2 (09:59→21:55)
[2018-10-30 14:00] VITALS: BP 152/72
--- NOTE | 2018-10-30 16:25 | IPNPDOC ---
Subjective Date Seen The patient was seen on 10/30/18. Subjective Chief Complaint/HPI Patient seen and examined at the bedside. Reports that the cellulitis on her abdominal wall is improving. The patient's fingersticks have been within normal limits. Denies any acute complaints of shortness of breath, chest pain, palpitations, or any nausea/vomiting/diarrhea. Objective Physical Examination General Exam: Positive: Alert, Cooperative, No Acute Distress ENT Exam: Positive: Atraumatic, Mucous membr. moist/pink Chest Exam: Positive: Clear to auscultation Heart Exam: Positive: Rate Normal, Normal S1, Normal S2 Abdomen Exam: Positive: Soft, Other (area of erythema noted across lower abdominal wall. No tenderness to palpation, no open lesions or purulent drainage noted.); Negative: Tenderness Extremity Exam: Positive: Other (2+ pitting edema in the lower extremities bi laterally); Negative: Tenderness Psych Exam: Positive: Oriented x 3 Assessment /Plan Plan/VTE VTE Prophylaxis Ordered?: Yes Plan Abdominal wall cellulitis CT Abd/Pel noted Continue on Unasyn Remains afebrile, with blood cell count WNL We'll continue to monitor and transition to PO Abx in the next 24-48hrs Hypoglycemia 2/2 Oral Hypoglycemics Patient on glimepiride and Metformin at home--these have been discontinued HgbA1c noted to be 5.5%--Patient likely can be D/C'd home w/o oral hypoglycemic therapy given her episodes of hypoglycemia and hemoglobin A1c which may be too tightly controlled. Cont Consistent carbohydrate diet We will continue to monitor fingersticks here Atrial fibrillation. Not on anticoagulation due to a history of GI bleed Cont aspirin, Metoprolol Hx of Congestive heart failure. Repeat 2D ECHO ordered, last one noted in records is from 2013 Continue spironolactone, metoprolol, and furosemide Follows with Dr. Lin as an outpatient GERD Continue home omeprazole, sucralfate Hypothyroidism. Continue Synthroid. DVT prophylaxis SCDs/TEDs VS, I&O, 24H, Fishbone Vital Signs/I&O Vital Signs Date Time Temp Pulse Resp B/P (MAP) Pulse Ox O2 Delivery O2 Flow Rate FiO2 10/30/18 14:00 98.5 70 16 152/72 (98) 97 10/29/18 20:03 Room Air 10/29/18 12:00 99 I&O- Last 24 Hours up to 6 AM 10/30/18 06:00 Intake Total 880 ml Output Total 1550 ml Balance -670 ml Laboratory Data 24H LABS Laboratory Tests 2 10/30/18 00:23: Bedside Glucose (Misc Panel) 73L 10/30/18 05:08: Bedside Glucose (Misc Panel) 35*L 10/30/18 05:11: Bedside Glucose (Misc Panel) 38*L 10/30/18 05:21: Immature Granulocyte % (Auto) 0.6, White Blood Count 4.8, Red Blood Count 3.16L, Hemoglobin 9.5L, Hematocrit 30.0L, Mean Corpuscular Volume 94.9, Mean Corpuscular Hemoglobin 30.1, Mean Corpuscular Hemoglobin Concent 31.7L, Red Cell Distribution Width 17.6H, Platelet Count 240, Neutrophils (%) (Auto) 69.3H, Lymphocytes (%) (Auto) 14.9L, Monocytes (%) (Auto) 11.9H, Eosinophils (%) (Auto) 2.5, Basophils (%) (Auto) 0.8, Neutrophils # (Auto) 3.3, Lymphocytes # (Auto) 0.7L, Monocytes # (Auto) 0.6, Eosinophils # (Auto) 0.1, Basophils # (Auto) 0.0, Nucleated Red Blood Cells % (auto) 0.0, Bedside Glucose Confirm (Misc) 108, Anion Gap 8, Glomerular Filtration Rate 46.8, Blood Urea Nitrogen 26H, Creatinine 1.18, Sodium Level 139, Potassium Level 4.2, Chloride Level 107, Carb on Dioxide Level 24, Calcium Level 7.9L 10/30/18 05:29: Bedside Glucose (Misc Panel) 80L 10/30/18 11:46: Bedside Glucose (Misc Panel) 93 CBC/BMP Laboratory Tests 10/30/18 05:21 Red Blood Count 3.16 L, Mean Corpuscular Volume 94.9, Mean Corpuscular Hemoglobin 30.1, Mean Corpuscular Hemoglobin Concent 31.7 L, Red Cell Distribution Width 17.6 H, Neutrophils (%) (Auto) 69.3 H, Lymphocytes (%) (Auto) 14.9 L, Monocytes (%) (Auto) 11.9 H, Eosinophils (%) (Auto) 2.5, Basophils (%) (Auto) 0.8, Neutrophils # (Auto) 3.3, Lymphocytes # (Auto) 0.7 L, Monocytes # (Auto) 0.6, Eosinophils # (Auto) 0.1, Basophils # (Auto) 0.0, Calcium Level 7.9 L ALFONSO THOMPSON MD Oct 30, 2018 16:25
[2018-10-30] MEDS ORDERED: ANUSOL HC CREAM 30GM TOP PRN (16:30)
[2018-10-30] MEDS: ALLOPURINOL 300 MG TAB PO SCH (21:58)
[2018-10-30 22:00] VITALS: BP 145/61
[2018-10-31 06:00] VITALS: BP 134/70
[2018-10-31] MEDS: LEVOTHYROXINE 75MCG TABLET (0.075MG) PO SCH (06:05)
[2018-10-31 06:51] LABS: EOS # 0.1 10^3/uL (0.0-0.50); EOS % 3.3 % (0.0-3.0); HEMOGLOBIN 9.6 g/dl (12.0-15.5); LYMPH # 0.7 10^3/uL (1.5-4.5); LYMPH % 16.7 % (24.0-44.0); MEAN CORPUSCULAR HEMOGLOBIN 30.8 pg (27.0-33.0); MEAN CORPUSCULAR VOLUME 96.2 fl (80.0-96.0); MONO # 0.6 10^3/uL (0.0-0.8); MONO % 14.1 % (0.0-5.0); NEUTROPHILS # 2.7 10^3/uL (1.8-7.7); NEUTROPHILS % 64.2 % (36.0-66.0); PLATELET COUNT, AUTOMATED 218 10^3/uL (150-450); RED BLOOD COUNT 3.12 10^6/uL (4.00-5.40); WHITE BLOOD COUNT 4.2 10^3/uL (4.0-10.0)
[2018-10-31 07:21] LABS: CALCIUM LEVEL 7.9 MG/DL (8.8-10.2); CREATININE FOR GFR 1.21 MG/DL (0.55-1.30); GLOMERULAR FILTRATION RATE 45.5 (>32); POTASSIUM SERUM 4.3 MEQ/L (3.5-5.1)
[2018-10-31] MEDS: FERROUS SULFATE 325MG TAB PO SCH ×2 (09:18→21:09)
[2018-10-31] MEDS: FUROSEMIDE 20 MG TAB PO SCH (09:19)
[2018-10-31] MEDS: ASPIRIN 81 MG ENTERIC TAB PO SCH (09:19)
[2018-10-31] MEDS: LORATADINE 10 MG TAB PO SCH (09:19)
[2018-10-31] MEDS: SUCRALFATE 1 GM TAB PO SCH ×4 (09:19→21:07)
[2018-10-31] MEDS: GEMFIBROZIL 600 MG TAB PO SCH ×2 (09:19→21:07)
[2018-10-31] MEDS: SPIRONOLACTONE 25 MG TAB PO SCH (09:19)
[2018-10-31] MEDS: OMEPRAZOLE 20 MG CAP PO SCH ×2 (09:19→21:08)
[2018-10-31] MEDS: AMPICILLIN SOD/SULBACTAM SOD 3 GM in D5W MINI-BAG PLUS 100 ML IV SCH ×2 (09:20→21:09)
[2018-10-31] MEDS: METOPROLOL SUCC (TopROL XL) 50MG **XL** TAB PO SCH ×2 (09:20→21:08)
[2018-10-31 14:00] VITALS: BP 142/64
--- NOTE | 2018-10-31 15:27 | ECHO ---
DATE OF PROCEDURE: 10/30/2018 REFERRING PROVIDER: Dr. Pepe Hansen PATIENT'S WIRING INSPECTOR: Dr. Jocy Lin REASON FOR THE ECHOCARDIOGRAM: Heart failure, unspecified. 2D MEASUREMENTS: IVS: 1.0 cm LV: 5.4 cm LVPW: 0.9 cm LA: 4.2 cm Aorta: 2.8 cm IVC: 2.7 cm DOPPLER MEASUREMENTS: Peak velocity across the aortic valve: 1.9 m/s Peak velocity across the LVOT: 0.78 m/s Mitral E: 1.4 Mitral A: 0.56 with a ratio of 2.5 Maximum tricuspid valve velocity: 3.4 m/s 2D COMMENTS: 1. Normal left ventricular size with normal left ventricular wall thickness and systolic function. The estimated global left ventricular systolic ejection fraction is 60-65%. 2. Mildly enlarged left atrium. The right atrium and the right ventricle both appeared to be enlarged in limited views. The right ventricular free wall was not well visualized. 3. The atrial septum appeared to normal without evidence of defect or shunt. 4. Normal aortic root. 5. No pericardial effusion seen. 6. Mildly calcified aortic valve with minimally restricted leaflet motion. Mildly calcified mitral annulus with normal anterior mitral valve leaflet motion. Normal tricuspid valve, pulmonic valve, and proximal pulmonary artery branches. 7. The inferior vena cava is dilated; central venous pressure is probably elevated. DOPPLER:: It detects moderate mitral regurgitation and moderately severe tricuspid regurgitation. The calculated pulmonary artery systolic pressure varies between 40 to 50 mmHg. Assessment of the left ventricular diastolic function was limited but may be normal. IMPRESSION: 1. Normal global left ventricular systolic function. Assessment of the left ventricular diastolic function was limited. 2. Aortic valve sclerosis with trivial aortic stenosis but no aortic regurgitation. The peak gradient across the aortic valve was 14 mmHg. 3. Mitral annulus calcification with mildly enlarged left atrium and moderate mitral regurgitation. 4. Moderately severe tricuspid regurgitation with moderate pulmonary hypertension and dilated right heart chambers. There was some on limited view consistent with more severe pulmonary hypertension. The ventricular septum had a D-shaped appearance in the short axis view. 5. There were some features of elevated central venous pressure; the inferior vena cava was mildly enlarged. 6. Not mentioned above, pacemaker wire artifact noted in the right heart chambers.
[2018-10-31] MEDS: FUROSEMIDE 100 MG/10 ML VIAL (J1940) IV SCH (17:18)
[2018-10-31] MEDS: ALLOPURINOL 300 MG TAB PO SCH (21:08)
[2018-10-31 22:00] VITALS: BP 144/65
--- NOTE | 2018-11-01 02:10 | IPNPDOC ---
Subjective Date Seen The patient was seen on 10/31/18. Subjective Chief Complaint/HPI Complains of leg swelling and abdominal wall swelling otherwise no other complains. No pain , no nausea vomiitng or diarrhea, no fever or chills. Objective Physical Examination General Exam: Positive: Alert, Cooperative, No Acute Distress ENT Exam: Positive: Atraumatic, Mucous membr. moist/pink Neck Exam: Positive: Supple Chest Exam: Positive: Normal air movement, Rales (at both bases), Diminished (air entry at bases) Heart Exam: Positive: Rate Normal, Normal S1, Normal S2, Murmurs (systolic) Abdomen Exam: Positive: Soft, Other (area of erythema noted across lower abdominal wall. No tenderness to palpation, no open lesions or purulent drainage noted.); Negative: Tenderness Extremity Exam: Positive: Edema, Other (2+ pitting edema in the lower extremities bilaterally); Negative: Tenderness Psych Exam: Positive: Oriented x 3 Assessment /Plan Assessment Abdominal wall cellulitis CT Abd/Pel noted Continue on Unasyn Remains afebrile, with blood cell count WNL We'll continue to monitor and transition to PO Abx in the next 24-48hrs Diabetes presented with Hypoglycemia 2/2 Oral Hypoglycemics Patient on glimepiride and Metformin at home--these have been discontinued HgbA1c noted to be 5.5% so does not need any medications at present. Cont Consistent carbohydrate diet only. We will continue to monitor fingersticks here Paroxysmal Atrial fibrillation. 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 Hx of Congestive heart failure with preserved LV systolic function with valvular heart disease moderate mitral regurg and severe tricuspid regurgitation. Also has moderate to severe pulmonary hypertension now with anasarca Continue spironolactone, metoprolol, will give IV lasix. Follows with Dr. Lin as an outpatient GERD with recent attack of hemetemesis and mandy found to have gastritis and duodenitis in october 2018 She was admitted form Continue home omeprazole, sucralfate Diverticulosis and internal hemorrhoids no issues at this point continue hydrocortisone cream prn Rheumatoid arthritis , osteoarthritis and osteoporosis Was on HCQS now not on medication list. Gout on allopurinol Hyperlipidemia continue gemfibrosil Hypothyroidism. Continue Synthroid. Morbid obesity complicating care. DVT prophylaxis SCDs/TEDs Plan/VTE VTE Prophylaxis Ordered?: Yes VS, I&O, 24H, Fishbone Vital Signs/I&O Vital Signs Date Time Temp Pulse Resp B/P (MAP) Pulse Ox O2 Delivery O2 Flow Rate FiO2 10/31/18 22:00 97.4 69 19 144/65 (91) 98 10/29/18 20:03 Room Air 10/29/18 12:00 99 I&O- Last 24 Hours up to 6 AM 11/01/18 06:00 Intake Total 1680 ml Output Total 3150 ml Balance -1470 ml Laboratory Data 24H LABS Laboratory Tests 2 10/31/18 05:19: Bedside Glucose (Misc Panel) 89 10/31/18 06:31: Immature Granulocyte % (Auto) 0.7, White Blood Count 4.2, Red Blood Count 3.12L, Hemoglobin 9.6L, Hematocrit 30.0L, Mean Corpuscular Volume 96.2H, Mean Corpuscular Hemoglobin 30.8, Mean Corpuscular Hemoglobin Concent 32.0, Red Cell Distribution Width 17.6H, Platelet Count 218, Neutrophils (%) (Auto) 64.2, Lymphocytes (%) (Auto) 16.7L, Monocytes (%) (Auto) 14.1H, Eosinophils (%) (Auto) 3.3H, Basophils (%) (Auto) 1.0, Neutrophils # (Auto) 2.7, Lymphocytes # (Auto) 0.7L, Monocytes # (Auto) 0.6, Eosinophils # (Auto) 0.1, Basophils # (Auto) 0.0, Nucleated Red Blood Cells % (auto) 0.0, Anion Gap 8, Glomerular Filtration Rate 45.5, Blood Urea Nitrogen 23H, Creatinine 1.21, Sodium Level 140, Potassium Level 4.3, Chloride Level 107, Carbon Dioxide Level 25, Calcium Level 7.9L 10/31/18 11:59: Bedside Glucose (Misc Panel) 162H 10/31/18 17:58: Bedside Glucose (Misc Panel) 235H 11/01/18 00:26: Bedside Glucose (Misc Panel) 122H CBC/BMP Laboratory Tests 10/31/18 06:31 Red Blood Count 3.12 L, Mean Corpuscular Volume 96.2 H, Mean Corpuscular Hemoglobin 30.8, Mean Corpuscular Hemoglobin Concent 32.0, Red Cell Distribution Width 17.6 H, Neutrophils (%) (Auto) 64.2, Lymphocytes (%) (Auto) 16.7 L, Monocytes (%) (Auto) 14.1 H, Eosinophils (%) (Auto) 3.3 H, Basophils (%) (Auto) 1.0, Neutrophils # (Auto) 2.7, Lymphocytes # (Auto) 0.7 L, Monocytes # (Auto) 0.6, Eosinophils # (Auto) 0.1, Basophils # (Auto) 0.0, Calcium Level 7.9 L MATEUSZ CARTAGENA MD Nov 01, 2018 02:10
[2018-11-01] MEDS: LEVOTHYROXINE 75MCG TABLET (0.075MG) PO SCH (05:53)
[2018-11-01 06:00] VITALS: BP 138/64
[2018-11-01 06:08] LABS: BASO % 0.9 % (0.0-1.0); EOS # 0.2 10^3/uL (0.0-0.50); EOS % 3.5 % (0.0-3.0); HEMATOCRIT 30.8 % (36.0-47.0); HEMOGLOBIN 9.6 g/dl (12.0-15.5); LYMPH # 0.7 10^3/uL (1.5-4.5); LYMPH % 15.5 % (24.0-44.0); MEAN CORPUSCULAR HEMOGLOBIN 29.8 pg (27.0-33.0); MEAN CORPUSCULAR HGB CONC 31.2 g/dl (32.0-36.5); MEAN CORPUSCULAR VOLUME 95.7 fl (80.0-96.0); MONO # 0.5 10^3/uL (0.0-0.8); MONO % 12.3 % (0.0-5.0); NEUTROPHILS # 2.9 10^3/uL (1.8-7.7); NEUTROPHILS % 67.3 % (36.0-66.0); PLATELET COUNT, AUTOMATED 238 10^3/uL (150-450); RED BLOOD COUNT 3.22 10^6/uL (4.00-5.40); WHITE BLOOD COUNT 4.3 10^3/uL (4.0-10.0)
[2018-11-01 06:32] LABS: CALCIUM LEVEL 7.8 MG/DL (8.8-10.2); CREATININE FOR GFR 1.35 MG/DL (0.55-1.30); GLOMERULAR FILTRATION RATE 40.1 (>32)
[2018-11-01] MEDS: SPIRONOLACTONE 25 MG TAB PO SCH (08:00)
[2018-11-01] MEDS: SUCRALFATE 1 GM TAB PO SCH ×4 (08:00→21:30)
[2018-11-01] MEDS: OMEPRAZOLE 20 MG CAP PO SCH ×2 (08:00→21:31)
[2018-11-01] MEDS: LORATADINE 10 MG TAB PO SCH (08:00)
[2018-11-01] MEDS: ASPIRIN 81 MG ENTERIC TAB PO SCH (08:00)
[2018-11-01] MEDS: FUROSEMIDE 100 MG/10 ML VIAL (J1940) IV SCH ×2 (08:01→17:03)
[2018-11-01] MEDS: GEMFIBROZIL 600 MG TAB PO SCH ×2 (08:01→21:30)
[2018-11-01] MEDS: METOPROLOL SUCC (TopROL XL) 50MG **XL** TAB PO SCH ×2 (08:01→21:31)
[2018-11-01] MEDS: FERROUS SULFATE 325MG TAB PO SCH ×2 (08:01→21:30)
[2018-11-01] MEDS: AMPICILLIN SOD/SULBACTAM SOD 3 GM in D5W MINI-BAG PLUS 100 ML IV SCH (10:36)
[2018-11-01 14:00] VITALS: BP 143/67
--- NOTE | 2018-11-01 14:55 | IPNPDOC ---
Subjective Date Seen The patient was seen on 11/01/18. Subjective Chief Complaint/HPI Feels a little better today, feels less distended and bloated, abdominal pain and heaviness is less. No fever or chills, no chest pain or sob. Objective Physical Examination General Exam: Positive: Alert, Cooperative, No Acute Distress ENT Exam: Positive: Atraumatic, Mucous membr. moist/pink Neck Exam: Positive: Supple Chest Exam: Positive: Normal air movement, Rales (at both bases), Diminished (air entry at bases) Heart Exam: Positive: Rate Normal, Normal S1, Normal S2, Murmurs (systolic) Abdomen Exam: Positive: Soft, Other (thick parietal edema of the abdominal wall. ); Negative: Tenderness Extremity Exam: Positive: Edema, Other (2+ pitting edema in the lower extremities bilaterally); Negative: Tenderness Psych Exam: Positive: Oriented x 3 Assessment /Plan Assessment Patient is an 83-year-old female with a past medical history significant for atrial fibrillation, not on anticoagulation secondary to recent GI bleed, congestive heart failure, hyperlipidemia, hypothyroidism, peptic ulcer disease, gastric esophageal reflux disease and chronic kidney disease who presented to the [facility] emergency department with complaint of lightheadedness and double vision. Patient states that she was recently discharged from [facility] for a gastrointestinal bleed. She does admit that she still has some melanotic stools. Patient states that this morning she had awoken up and went to go make breakfast. She stated at that time that she felt somewhat lightheaded and she had a heavy feeling in her body. She described as heavy feeling as "sand weighing me down". She states that at that time she had checked her blood sugar which had been 56. She decided to sit down and eat some oatmeal. After eating her oatmeal. She checked her blood sugar again and found to be in the 40s. She was admitted for hypoglycemia. On admission pateint was also noted to have sob, abdominal wall edema, features of anasarca as demostrated by small bilateral pleural effusions, abdominal ascites , abdominal wall edema. There was was features of inflammation of the abdominal wall so was felt she also has abdominal wall cellulitis. Diabetes presented with Hypoglycemia 2/2 Oral Hypoglycemics Patient on glimepiride and Metformin at home--these have been discontinued HgbA1c noted to be 5.5% so does not need any medications at present. Cont Consistent carbohydrate diet only. We will continue to monitor fingersticks here Congestive heart failure with exacerbation with preserved LV systolic function with valvular heart disease moderate mitral regurg and severe tricuspid regurgitation. Also has moderate to severe pulmonary hypertension now with anasarca Continue spironolactone, metoprolol, will give IV lasix. Follows with Dr. Lin as an outpatient Abdominal wall cellulitis more related to parietal edema of the abdominal wall. CT Abd/Pel noted will deescalate antibiotics to keflex. Remains afebrile, with blood cell count WNL Paroxysmal Atrial fibrillation. 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 GERD with recent attack of hemetemesis and mandy found to have gastritis and duodenitis in october 18 2018 She was admitted form Continue home omeprazole, sucralfate Diverticulosis and internal hemorrhoids no issues at this point continue hydrocortisone cream prn Rheumatoid arthritis , osteoarthritis and osteoporosis Was on HCQS now not on medication list. Gout on allopurinol Hyperlipidemia continue gemfibrosil Hypothyroidism. Continue Synthroid. Morbid obesity with pulmonary hypertension and features of right heart failure. complicating care. continue diuresis. DVT prophylaxis SCDs/TEDs Plan/VTE VTE Prophylaxis Ordered?: Yes VS, I&O, 24H, Fishbone Vital Signs/I&O Vital Signs Date Time Temp Pulse Resp B/P (MAP) Pulse Ox O2 Delivery O2 Flow Rate FiO2 11/01/18 14:00 96.7 74 18 143/67 (92) 99 10/29/18 20:03 Room Air 10/29/18 12:00 99 I&O- Last 24 Hours up to 6 AM 11/01/18 06:00 Intake Total 2380 ml Output Total 3500 ml Balance -1120 ml Laboratory Data 24H LABS Laboratory Tests 2 10/31/18 17:58: Bedside Glucose (Misc Panel) 235H 11/01/18 00:26: Bedside Glucose (Misc Panel) 122H 11/01/18 05:38: Bedside Glucose (Misc Panel) 99 11/01/18 05:43: Immature Granulocyte % (Auto) 0.5, White Blood Count 4.3, Red Blood Count 3.22L, Hemoglobin 9.6L, Hematocrit 30.8L, Mean Corpuscular Volume 95.7, Mean Corpuscular Hemoglobin 29.8, Mean Corpuscular Hemoglobin Concent 31.2L, Red Cell Distribution Width 17.4H, Platelet Count 238, Neutrophils (%) (Auto) 67.3H, Lymphocytes (%) (Auto) 15.5L, Monocytes (%) (Auto) 12.3H, Eosinophils (%) (Auto) 3.5H, Basophils (%) (Auto) 0.9, Neutrophils # (Auto) 2.9, Lymphocytes # (Auto) 0.7L, Monocytes # (Auto) 0.5, Eosinophils # (Auto) 0.2, Basophils # (Auto) 0.0, Nucleated Red Blood Cells % (auto) 0.0, Anion Gap 10, Glomerular Filtration Rate 40.1, Blood Urea Nitrogen 25H, Creatinine 1.35H, Sodium Level 140, Potassium Level 4.0, Chloride Level 107, Carbon Dioxide Level 23, Calcium Level 7.8L 11/01/18 11:43: Bedside Glucose (Misc Panel) 119H CBC/BMP Laboratory Tests 11/01/18 05:43 Red Blood Count 3.22 L, Mean Corpuscular Volume 95.7, Mean Corpuscular Hemoglobin 29.8, Mean Corpuscular Hemoglobin Concent 31.2 L, Red Cell Distribution Width 17.4 H, Neutrophils (%) (Auto) 67.3 H, Lymphocytes (%) (Auto) 15.5 L, Monocytes (%) (Auto) 12.3 H, Eosinophils (%) (Auto) 3.5 H, Basophils (%) (Auto) 0.9, Neutrophils # (Auto) 2.9, Lymphocytes # (Auto) 0.7 L, Monocytes # (Auto) 0.5, Eosinophils # (Auto) 0.2, Basophils # (Auto) 0.0, Calcium Level 7.8 L MATEUSZ CARTAGENA MD Nov 01, 2018 14:55
[2018-11-01] MEDS: CEPHALEXIN 500 MG CAP PO SCH ×2 (17:03→21:30)
[2018-11-01] MEDS: ALLOPURINOL 300 MG TAB PO SCH (21:30)
[2018-11-01 22:00] VITALS: BP 132/63
[2018-11-02] MEDS: LEVOTHYROXINE 75MCG TABLET (0.075MG) PO SCH (05:30)
[2018-11-02 06:00] VITALS: BP 154/75
[2018-11-02 07:23] LABS: BASO # 0.1 10^3/uL (0.0-0.2); BASO % 1.2 % (0.0-1.0); EOS # 0.1 10^3/uL (0.0-0.50); EOS % 2.8 % (0.0-3.0); HEMATOCRIT 29.4 % (36.0-47.0); HEMOGLOBIN 9.3 g/dl (12.0-15.5); LYMPH # 0.6 10^3/uL (1.5-4.5); LYMPH % 12.5 % (24.0-44.0); MEAN CORPUSCULAR HEMOGLOBIN 30.2 pg (27.0-33.0); MEAN CORPUSCULAR HGB CONC 31.6 g/dl (32.0-36.5); MEAN CORPUSCULAR VOLUME 95.5 fl (80.0-96.0); MONO # 0.6 10^3/uL (0.0-0.8); MONO % 11.1 % (0.0-5.0); NEUTROPHILS # 3.6 10^3/uL (1.8-7.7); NEUTROPHILS % 71.8 % (36.0-66.0); PLATELET COUNT, AUTOMATED 227 10^3/uL (150-450); RED BLOOD COUNT 3.08 10^6/uL (4.00-5.40)
[2018-11-02 07:46] LABS: CALCIUM LEVEL 7.9 MG/DL (8.8-10.2); CREATININE FOR GFR 1.29 MG/DL (0.55-1.30); GLOMERULAR FILTRATION RATE 42.2 (>32); POTASSIUM SERUM 4.1 MEQ/L (3.5-5.1)
[2018-11-02] MEDS: SUCRALFATE 1 GM TAB PO SCH ×2 (07:48→12:55)
[2018-11-02] MEDS: FUROSEMIDE 100 MG/10 ML VIAL (J1940) IV SCH (09:31)
[2018-11-02 09:32] VITALS: BP 154/75
[2018-11-02] MEDS: METOPROLOL SUCC (TopROL XL) 50MG **XL** TAB PO SCH (09:32)
[2018-11-02] MEDS: CEPHALEXIN 500 MG CAP PO SCH ×2 (09:32→12:55)
[2018-11-02] MEDS: LORATADINE 10 MG TAB PO SCH (09:32)
[2018-11-02] MEDS: GEMFIBROZIL 600 MG TAB PO SCH (09:33)
[2018-11-02] MEDS: OMEPRAZOLE 20 MG CAP PO SCH (09:33)
[2018-11-02] MEDS: ASPIRIN 81 MG ENTERIC TAB PO SCH (09:33)
[2018-11-02] MEDS: FERROUS SULFATE 325MG TAB PO SCH (09:34)
[2018-11-02] MEDS: SPIRONOLACTONE 25 MG TAB PO SCH (09:34)
[2018-11-02] MEDS ORDERED: FURO40TA2 PO (13:13)
[2018-11-02] MEDS ORDERED: CEPH500C PO (13:13)
--- NOTE | 2018-11-03 05:30 | DS.PDOC ---
Discharge Summary General Date of Admission Oct 31, 2018 at 21:37 Date of Discharge 11/02/18 Attending Physician: MATEUSZ CARTAGENA MD Discharge Summary PROCEDURES PERFORMED DURING STAY: [None]. DISCHARGE DIAGNOSES: Recurrent Hypoglycemia due to oral hypoglycemics Diabetes CHF exacerbation with anasarca Abdominal wall edema with cellulitis Valvular heart disease --Mitral regurgitation moderate, severe tricuspid regurgitation Severe pulmonary hypertension with right heart failure. Paroxysmal A Fib H/O Complete A-V block with PPM in place Morbid obesity GERD H/O GIB on October 18 2018 due to Peptic ulcer disease--Gastritis, Duodenitis Hypothyroid Hyperlipidemia Gout H/O Rheumatoid arthritis, Osteoarthritis Diverticulosis Internal hemorrhoids. COMPLICATIONS/CHIEF COMPLAINT: Cellulitis. HISTORY OF PRESENT ILLNESS: See history and physical HOSPITAL COURSE: Patient is an 83-year-old female with a past medical history significant for atrial fibrillation, not on anticoagulation secondary to recent GI bleed, congestive heart failure, hyperlipidemia, hypothyroidism, peptic ulcer disease, gastric esophageal reflux disease and chronic kidney disease who presented to the [facility] emergency department with complaint of lightheadedness and double vision. Patient states that she was recently discharged from [facility] for a gastrointestinal bleed. She does admit that she still has some melanotic stools. Patient states that this morning she had awoken up and went to go make breakfast. She stated at that time that she felt somewhat lightheaded and she had a heavy feeling in her body. She described as heavy feeling as "sand weighing me down". She states that at that time she had checked her blood sugar which had been 56. She decided to sit down and eat some oatmeal. After eating her oatmeal. She checked her blood sugar again and found to be in the 40s. She was admitted for hypoglycemia. On admission patient was also noted to have sob, abdominal wall edema, features of anasarca as demostrated by small bilateral pleural effusions, abdominal ascites , abdominal wall edema. There was was features of inflammation of the abdominal wall so was felt she also has abdominal wall cellulitis. Pateint was initially trated with Unasyn then changed to oral Keflex. Pateint was also noted to have anasarca with huge abdominal wall edema and pedal edema. She was started on aggressive diuresis with IV lasix which improved the anasarca significantly however pateint still continues to have quite a bit of edema and would benefit from at least another 10 lbs of fluid weight loss. Her oral diuretic dose was increased on discharge. Diabetes presented with Hypoglycemia 2/2 Oral Hypoglycemics Patient on glimepiride and Metformin at home--these have been discontinued HgbA1c noted to be 5.5% so does not need any medications at present. Cont Consistent carbohydrate diet only. We will continue to monitor fingersticks here Congestive heart failure with exacerbation with preserved LV systolic function with valvular heart disease moderate mitral regurg and severe tricuspid regurgitation. Also has moderate to severe pulmonary hypertension now with anasarca Continue spironolactone, metoprolol, Lasix. Dose increased. Follows with Dr. Lin as an outpatient Abdominal wall cellulitis more related to parietal edema of the abdominal wall. CT Abd/Pel noted will deescalate antibiotics to keflex. Remains afebrile, with blood cell count WNL Paroxysmal Atrial fibrillation. 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 GERD with recent H/O hemetemesis and mandy found to have gastritis and duodenitis in october 18 2018 She was admitted form Continue home omeprazole, sucralfate Diverticulosis and internal hemorrhoids no issues at this point continue hydrocortisone cream prn Rheumatoid arthritis , osteoarthritis and osteoporosis Was on HCQS now not on medication list. Gout on allopurinol Hyperlipidemia continue gemfibrosil Hypothyroidism. Continue Synthroid. Morbid obesity with pulmonary hypertension and features of right heart failure. complicating care. continue diuresis. DISCHARGE MEDICATIONS: Please see below. ALLERGIES: Please see below. PHYSICAL EXAMINATION ON DISCHARGE: VITAL SIGNS: Please see below. General Exam: Positive: Alert, Cooperative, No Acute Distress ENT Exam: Positive: Atraumatic, Mucous membr. moist/pink Neck Exam: Positive: Supple Chest Exam: Positive: Normal air movement, Rales (at both bases), Diminished (air entry at bases) Heart Exam: Positive: Rate Normal, Normal S1, Normal S2, Murmurs (systolic) Abdomen Exam: Positive: Soft, Other (thick parietal edema of the abdominal wall. ); Negative: Tenderness Extremity Exam: Positive: Edema, Other (2+ pitting edema in the lower extremities bilaterally); Negative: Tenderness Psych Exam: Positive: Oriented x 3 LABORATORY DATA: Please see below. ACTIVITY: [As tolerated]. DIET: Carb consistent diet with 1800 cc fluid restriction. DISPOSITION: 01 Home, Self-Care. DISCHARGE INSTRUCTIONS: PMD in [address] Lin in 2 to 4 weeks. DISCHARGE CONDITION: [Stable]. TIME SPENT ON DISCHARGE: Greater than 30 minutes. Vital Signs/I&Os Vital Signs Date Time Temp Pulse Resp B/P (MAP) Pulse Ox O2 Delivery O2 Flow Rate FiO2 11/02/18 09:32 74 154/75 11/02/18 06:00 96.9 19 97 10/29/18 20:03 Room Air 10/29/18 12:00 99 I&O- Last 24 Hours up to 6 AM 11/03/18 06:00 Intake Total 1010 ml Output Total 400 ml Balance 610 ml Laboratory Data Labs 24H Laboratory Tests 2 11/02/18 06:26: Immature Granulocyte % (Auto) 0.6, White Blood Count 5.0, Red Blood Count 3.08L, Hemoglobin 9.3L, Hematocrit 29.4L, Mean Corpuscular Volume 95.5, Mean Corpus cular Hemoglobin 30.2, Mean Corpuscular Hemoglobin Concent 31.6L, Red Cell Distribution Width 17.2H, Platelet Count 227, Neutrophils (%) (Auto) 71.8H, Lymphocytes (%) (Auto) 12.5L, Monocytes (%) (Auto) 11.1H, Eosinophils (%) (Auto) 2.8, Basophils (%) (Auto) 1.2H, Neutrophils # (Auto) 3.6, Lymphocytes # (Auto) 0.6L, Monocytes # (Auto) 0.6, Eosinophils # (Auto) 0.1, Basophils # (Auto) 0.1, Nucleated Red Blood Cells % (auto) 0.0, Anion Gap 11, Glomerular Filtration Rate 42.2, Blood Urea Nitrogen 27H, Creatinine 1.29, Sodium Level 141, Potassium Level 4.1, Chloride Level 106, Carbon Dioxide Level 24, Calcium Level 7.9L 11/02/18 11:38: Bedside Glucose (Misc Panel) 108 CBC/BMP Laboratory Tests 11/02/18 06:26 Red Blood Count 3.08 L, Mean Corpuscular Volume 95.5, Mean Corpuscular Hemoglobin 30.2, Mean Corpuscular Hemoglobin Concent 31.6 L, Red Cell Distr ibution Width 17.2 H, Neutrophils (%) (Auto) 71.8 H, Lymphocytes (%) (Auto) 12.5 L, Monocytes (%) (Auto) 11.1 H, Eosinophils (%) (Auto) 2.8, Basophils (%) (Auto) 1.2 H, Neutrophils # (Auto) 3.6, Lymphocytes # (Auto) 0.6 L, Monocytes # (Auto) 0.6, Eosinophils # (Auto) 0.1, Basophils # (Auto) 0.1, Calcium Level 7.9 L FSBS Laboratory Tests Test 11/02/18 11:38 Range/Units Bedside Glucose (Misc Panel) 108 83-110 MG/DL Discharge Medications Scheduled Allopurinol (Zyloprim) 300 Mg Tab, 300 MG PO QHS, (Reported) Aspirin (Aspirin EC) 81 Mg Tabec, 81 MG PO DAILY, (Reported) Calcium/Vitamin D (Calcium 600+D 600-400 mg-Unit) 1 Tab Tab, 1 TAB PO BID, (Rep orted) Cephalexin Monohydrate (Cephalexin) 500 Mg Cap, 500 MG PO QID Ferrous Sulfate (Ferrous Sulfate) 325 Mg Tab, 325 MG PO BID, (Reported) Furosemide (Furosemide) 40 Mg Tab, 80 MG PO BID Gemfibrozil (Gemfibrozil) 600 Mg Tab, 600 MG PO BID, (Reported) Levothyroxine Sodium (Synthroid) 75 Mcg Tab, 37.5 MCG PO DAILY, (Reported) Loratadine (Loratadine) 10 Mg Tab, 10 MG PO DAILY, (Reported) Metoprolol Succinate (Toprol Xl) 50 Mg Tab, 100 MG PO DAILY, (Reported) Metoprolol Succinate (Toprol Xl) 50 Mg Tab, 50 MG PO QHS, (Reported) Omeprazole (Omeprazole Dr) 20 Mg Cap, 40 MG PO BID, (Reported) Spironolactone (Spironolactone) 25 Mg Tab, 25 MG PO DAILY, (Reported) Sucralfate (Carafate) 1 Gm Tab, 1 GM PO ACHS, (Reported) Scheduled PRN Fluticasone Propionate (Flonase Allergy Relief) 50 Mcg/Act Spr, 1 SPRAY NA DAILY PRN for ALLERGIES, (Reported) Allergies Coded Allergies: latex (Verified Allergy, Severe, Anaphylaxis, 10/30/18) [place] (Verified Allergy, Unknown, 10/30/18) codeine (Verified Adverse Reaction, Intermediate, Dizziness, Blurred Vision, Headache, Dry Mouth, 10/30/18) MATEUSZ CARTAGENA MD Nov 03, 2018 05:30
== END 2018-11-02 14:45 | disposition home or self-care (01) | DRG 602 ==
LOC: M ED 11:25 → M ED INP 17:28 → M MS5PR 20:37 → OBSVTOIN 10-31 21:37
PROVIDERS: ADMIT Internal Medicine; ATTEND Internal Medicine Nephrology
DX: L03.311 Cellulitis of abdominal wall (principal); I50.33 Acute on chronic diastolic (congestive) heart failure; R18.8 Other ascites; Z68.41 Body mass index [BMI] 40.0-44.9, adult; I48.0 Paroxysmal atrial fibrillation; E78.5 Hyperlipidemia, unspecified; E03.9 Hypothyroidism, unspecified; E11.649 Type 2 diabetes mellitus with hypoglycemia without coma; I27.20 Pulmonary hypertension, unspecified; K21.9 Gastro-esophageal reflux disease without esophagitis; N28.1 Cyst of kidney, acquired; N18.9 Chronic kidney disease, unspecified; E66.01 Morbid (severe) obesity due to excess calories; M06.9 Rheumatoid arthritis, unspecified; I08.1 Rheumatic disorders of both mitral and tricuspid valves; M19.90 Unspecified osteoarthritis, unspecified site; M10.9 Gout, unspecified; K27.9 Peptic ulcer, site unspecified, unspecified as acute or chronic, without hemorrhage or perforation; M81.0 Age-related osteoporosis without current pathological fracture; Z95.0 Presence of cardiac pacemaker; Z87.891 Personal history of nicotine dependence; Z90.49 Acquired absence of other specified parts of digestive tract; Z90.710 Acquired absence of both cervix and uterus; Z79.84 Long term (current) use of oral hypoglycemic drugs; Z79.899 Other long term (current) drug therapy

== ENCOUNTER 2019-04-05 12:57 | Inpatient (IN) | payer MEDICARE, OTHER ==
[~2019-04-05] VITALS: Ht 149.9 cm; Wt 87.5 kg
[~2019-04-05 12:57] MED LIST changes: -/ADVA50050 INH; -/HCTZ25TA PO; -/MOXI40TA PO; -/WARF5TA; +ADVA1AER2 INH; -ASCO25TA PO; +AVEL1TAB2 PO; +CALCCAP4 PO; +CEPH500C PO; +COUM1TAB17; -DOCU10ELUD PO; +DOCU5LIQ PO; -FLON1SPR; +FLON1SPR NARES; +HYDR-3644 PO; +METO-1 PO; +OMEP-218 PO; +OMEP20CA4 PO; -PRAD75CA3 PO; +PRAD75CA5 PO; +PRED-351 PO; -PRED10TA PO; +SPIR-10 PO; -TOPR25TA PO; +TOPR50TA PO; -TOPR50TA23 PO; +VITA1TAB23 PO
[2019-04-05] MEDS ORDERED: ACETAMINOPHEN TAB 650MG DOSE (2X325MG) PO ONE (14:30)
--- NOTE | 2019-04-05 14:55 | REP ---
Clinical: Trauma. Technique: AP and lateral views of the left knee. Findings: There is an acute fracture with displacement and angulation through the distal femoral metaphysis. Overlying soft tissue swelling noted. Evidence for prior arthroplasty. Impression: Distal femoral metaphyseal fracture with angulation and displacement. Electronically Signed by Mikal Field MD 04/05/2019 02:47 P
[2019-04-05] MEDS ORDERED: ONDANSETRON 4MG/2ML VIAL (J2405) IV ONE (15:15)
[2019-04-05] MEDS ORDERED: NS 1,000 ML IV SCH (15:15)
--- NOTE | 2019-04-05 15:45 | REP ---
Clinical: Preoperative assessment. Knee fracture. Technique: Portable upright AP view. Findings: Stable cardiomegaly. Pacemaker in satisfactory position. Lung maria demonstrate chronic interstitial changes. No focal consolidation, effusion, or pneumothorax. Skeletal structures demonstrate osteopenia and degenerative changes. Impression: Stable chronic changes and cardiomegaly. No acute cardiopulmonary process appreciated. Electronically Signed by Mikal Field MD 04/05/2019 03:36 P
[2019-04-05 15:56] LABS: HEMOGLOBIN 10.3 g/dl (12.0-15.5); MEAN CORPUSCULAR HEMOGLOBIN 32.7 pg (27.0-33.0); MEAN CORPUSCULAR HGB CONC 32.2 g/dl (32.0-36.5); MEAN CORPUSCULAR VOLUME 101.6 fl (80.0-96.0); PLATELET COUNT, AUTOMATED 206 10^3/uL (150-450); RED BLOOD COUNT 3.15 10^6/uL (4.00-5.40); WHITE BLOOD COUNT 8.9 10^3/uL (4.0-10.0)
[2019-04-05] MEDS: MORPHINE 2 MG/ML 1ML SYRINGE (J2270) IV PRN ×2 (16:03→19:06)
[2019-04-05 16:07] LABS: INR 1.11
[2019-04-05 16:18] LABS: BILIRUBIN,DIRECT 0.2 MG/DL (0.0-0.2); BILIRUBIN,TOTAL 0.7 MG/DL (0.2-1.0); CALCIUM LEVEL 9.3 MG/DL (8.8-10.2); CREATININE FOR GFR 1.56 MG/DL (0.55-1.30); GLOMERULAR FILTRATION RATE 33.9 (>32); POTASSIUM SERUM 5.9 MEQ/L (3.5-5.1); TOTAL PROTEIN 6.9 GM/DL (6.4-8.2)
--- NOTE | 2019-04-05 16:58 | REP ---
Clinical: Trauma. Technique: AP and cross-table lateral views of the left femur. Findings: There is a displaced fracture of the distal femoral metaphysis with overlying soft tissue swelling. Prior knee joint replacement noted. The hip joint appears grossly intact. Impression: Displaced fracture of the distal femoral metaphysis. Electronically Signed by Mikal Field MD 04/05/2019 04:50 P
--- NOTE | 2019-04-05 17:06 | REP ---
Clinical: Trauma. Technique: Axial noncontrast images of the left knee with coronal and sagittal re-formations. Findings: There is a mildly displaced oblique fracture through the distal femoral metadiaphysis with surrounding post traumatic infiltration and joint effusion. Evidence for prior knee arthroplasty. Impression: Mildly displaced oblique fracture through the distal femoral metadiaphysis with soft tissue injuries and joint effusion. Electronically Signed by Mikal iFeld MD 04/05/2019 04:58 P
[2019-04-05] MEDS ORDERED: MAALOX 30 ML SUSP *UDC PO PRN (18:00)
[2019-04-05] MEDS ORDERED: MOM 30ML SUSPENSION UDC PO PRN (18:00)
[2019-04-05] MEDS ORDERED: POTA20TA6 PO (18:19)
[2019-04-05] MEDS ORDERED: LASI40TA9 PO (18:19)
[2019-04-05] MEDS ORDERED: GLIM2TAB29 PO (18:19)
[2019-04-05] MEDS ORDERED: SOD POLYSTYRENE SULFONATE SUSP 15 GM/60 ML UD PO ONE (18:30)
[2019-04-05] MEDS ORDERED: FUROSEMIDE 40 MG/4 ML VIAL (J1940) IV ONE (18:45)
[2019-04-05] MEDS ORDERED: VITATAB26 PO (18:47)
--- NOTE | 2019-04-05 19:29 | HPEPDOC ---
General Date of Admission 04/05/19 Date of Service: Apr 05, 2019 Primary Care Physician: LUCILLE BENJAMIN MD Other Providers Dr Rowland - rheumatology, Dr Lin - cardiology, Dr Benjamin (PCP), Dr Masterson (nephrology) Attending Physician: LOPEZ MARQUEZ DO Chief Complaint The patient is a 83-year-old female admitted with a reason for visit of FALL. Source: Patient, Family Exam Limitations: No limitations History of Present Illness 83yo female with history of DM, erosive arthritis, atrial fibrillation (pacemaker in place) on ASA presented to ED with femur fracture. Patient states she was walking down 1 step to empty cat liter box when her leg "suddenly gave out" and caused her to fall. The was no head injury or LOC. She states no BURRIS, no N, no V. She has intermittent chronic diarrhea and chronic SOB but no worse. Patient states her last tetanus shot was in 2019 Home Medications Scheduled Allopurinol (Zyloprim) 300 Mg Tab, 300 MG PO QHS, (Reported) Aspirin (Aspirin EC) 81 Mg Tabec, 81 MG PO DAILY, (Reported) Calcium Carbonate/Vitamin D3 (Calcium 600 + Vit D 400 Softgl) 1 Each Capsule, 1 CAP PO BID, (Reported) Ferrous Sulfate (Ferrous Sulfate) 325 Mg Tab, 325 MG PO BID, (Reported) Furosemide (Lasix) 40 Mg Tablet, 60 MG PO DAILY, (Reported) Gemfibrozil (Gemfibrozil) 600 Mg Tab, 600 MG PO BID, (Reported) Glimepiride (Glimepiride) 2 Mg Tablet, 2 MG PO DAILY, (Reported) Levothyroxine Sodium (Synthroid) 75 Mcg Tab, 37.5 MCG PO DAILY, (Reported) Loratadine (Loratadine) 10 Mg Tab, 10 MG PO DAILY, (Reported) Metoprolol Succinate (Toprol Xl) 50 Mg Tab, 50 MG PO DAILY, (Reported) Omeprazole (Omeprazole) 20 Mg Cap, 20 MG PO BID, (Reported) Potassium Chloride (Potassium Chloride) 20 Meq Tab.er.prt, 20 MEQ PO DAILY, (Reported) Spironolactone (Spironolactone) 25 Mg Tab, 25 MG PO BID, (Reported) Sucralfate (Sucralfate) 1 Gm Tab, 1 GM PO ACHS, (Reported) Scheduled PRN Fluticasone Propionate (Flonase Allergy Relief) 50 Mcg/Act Spr, 1 SPRAY NARES DAILY PRN for NASAL CONGESTION, (Reported) Allergies Coded Allergies: latex (Verified Allergy, Severe, Anaphylaxis, 10/30/18) [place] Tree (Verified Allergy, Unknown, 10/30/18) codeine (Verified Adverse Reaction, Intermediate, Dizziness, Blurred Vision, Headache, Dry Mouth, 10/30/18) Past Medical History Medical History 1. Atrial fibrillation, not on anticoagulation secondary to GI bleed. Currently on aspirin 2. Congestive heart failure.right sided with severe pulmonary HTN 3. Hyperlipidemia, neck signed for hypothyroidism 5. Peptic ulcer disease. 6. Gastroesophageal reflux disease. 7. Chronic kidney disease. 8. Erosive arthritis with rheumatoid arthritis 9. 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 Right breast biopsy. 2. Pacemaker placement. 3. Appendectomy. 4. Cholecystectomy. 5. Knee replacement 6. Total abdominal hysterectomy SOCIAL HISTORY: Patient is a former smoker. She denies any illicit drug use. She denies any alcohol use Family History: FATHER: 64 YRS, HEART ATTACK A-FIB/CHADSVASC A-FIB History Current/History of A-Fib/PAF?: Yes Current PO Anticoag Therapy: No Age/Risk Factor Scoring CHADSVASC: CHADSVASC Response (Comments) Value Age Risk Factor Age >/= 75 years old 2 Gender Risk Factor Female 1 Hx of CHF Yes 1 Hx of HTN Yes 1 Hx of Stroke/TIA/or VTE No 0 Hx of Diabetes Yes 1 Hx of Vascular Disease Yes 1 Total 7 Treatment Treatment ordered: NONE Reason Anticoagulant not given: Recent/upcomin procedure Review of Systems Other systems 10 systems reviewed and negative except as per HPI Physical Examination General Exam: Positive: Alert, Cooperative, Mild Distress (recently recieved morphine) Eye Exam: Positive: JONO POWER ENT Exam: Positive: Atraumatic, Mucous membr. moist/pink, Pharynx Normal, Other ENT (upper/lower dentures) Neck Exam: Positive: Supple, +2 carotid pulse wo bruit Chest Exam: Positive: Clear to auscultation (anteriorly), Normal air movement; Negative: Rales, Rhonchi, Wheezing Heart Exam: Positive: Rate Normal, Regular Rhythm, Normal S1, Normal S2, Other (pacemaker in left upper chest wall) Telemetry: Positive: No significant arrhythmia, Other Telemetry: (paced on EKG and tele) Abdomen Exam: Positive: Normal bowel sounds (obese, NT ND; pannus without signs of hernia) Extremity Exam: Positive: Normal pulses, Other (left leg deformity consistent with fracture); Negative: Clubbing, Cyanosis, Edema (ankles) Skin Exam: Positive: Nl turgor and temperature Neuro Exam: Positive: Normal Speech, Sensation Intact, Cranial Nerves 3-12 NL Psych Exam: Positive: Mental status NL, Mood NL, Memory Intact, Oriented x 3 Other physical findings Images of CXR, Femur and knee xrays reviewed. CXR Impression: no effusion, no infiltrate Stable chronic changes and cardiomegaly. No acute cardiopulmonary process appreciated. CT Knee and Plain Film knee: displaced fracture of distal femur Impression: Mildly displaced oblique fracture through the distal femoral metadiaphysis with soft tissue injuries and joint effusion. Vital Signs Vital Signs Date Time Temp Pulse Resp B/P (MAP) Pulse Ox O2 Delivery O2 Flow Rate FiO2 04/05/19 16:03 18 04/05/19 16:00 70 132/61 (84) 96 Room Air 04/05/19 13:00 97.7 Laboratory Data Labs 24H Laboratory Tests 2 04/05/19 15:44: Nucleated Red Blood Cells % (auto) 0.0, Prothrombin Time 14.0, Prothromb Time International Ratio 1.11, Anion Gap 9, Glomerular Filtration Rate 33.9, Calcium Level 9.3, Aspartate Amino Transf (AST/SGOT) 15, Alanine Aminotransferase (ALT/SGPT) 15, Alkaline Phosphatase 226H, Total Bilirubin 0.7, Direct Bilirubin 0.2, Total Protein 6.9, Albumin 4.0, Albumin/Globulin Ratio 1.38 CBC/BMP Laboratory Tests 04/05/19 15:44 Red Blood Count 3.15 L, Mean Corpuscular Volume 101.6 H, Mean Corpuscular Hemogl obin 32.7, Mean Corpuscular Hemoglobin Concent 32.2, Red Cell Distribution Width 14.9 H Assessment/Plan Left femur fracture - ortho consulted and surgery planned for AM on 04/06/19 Hyperkalemia - treat with IV lasix. repeat K at 2300 and again in AM for optimization prior to surgery. paroxysmal Afib - rated controlled with metoprolol and pacemaker (placed for history of complete AV block - do not turn off pacemaker). Patient was taken off all anticoagulation (except for aspirin) in 10/18/2018 after severe GI bleed. Post op DVT prophylaxis will need to consider lovenox or sc heparin instead of NOACs Diabetes - not on senior living insulin, not on oral agents due to severe hypoglycemia - diet controlled with home BS ranging 120-200. Goal of blood sugar is below 180 to promote post op healing history of CHF with severe pulmonary HTN - without current exacerbation - continue home regimen. keep on dry side post operatively, continue metoprolol, spironolactone and change po lasix to IV in perioperative period. CKD stage III - creatinine baseline is 1.2 to 1.5. monitor Erosive arthritis - hold CODE STATUS: DNR (rescind for surgery) DVT prophylaxis: on hold in anticipation of surgery tomorrow AM Plan / VTE VTE Prophylaxis Ordered?: No VTE Exclusion Pharmacological: Other (surgery in AM) LOPEZ MARQUEZ DO Apr 05, 2019 18:01
[2019-04-05] MEDS ORDERED: FLUTICASONE PROP 0.05% NASAL SPRAY 16 GM (FLONASE) NARES PRN (19:30)
[2019-04-05] MEDS ORDERED: PILL CUTTER 1 EACH XX PRN (19:30)
[2019-04-05 22:00] VITALS: BP 127/57
[2019-04-05] MEDS ORDERED: MORPHINE 4 MG/ML 1ML VIAL/SYRINGE (J2270) IV PRN (22:00)
[2019-04-05 22:12] LABS: CALCIUM LEVEL 8.4 MG/DL (8.8-10.2); CREATININE FOR GFR 1.63 MG/DL (0.55-1.30); GLOMERULAR FILTRATION RATE 32.2 (>32); POTASSIUM SERUM 6.3 MEQ/L (3.5-5.1)
[2019-04-05] MEDS: OMEPRAZOLE 20 MG CAP PO SCH (22:29)
[2019-04-05] MEDS: ALLOPURINOL 300 MG TAB PO SCH (22:29)
[2019-04-05] MEDS: GEMFIBROZIL 600 MG TAB PO SCH (22:29)
[2019-04-05] MEDS: CALCIUM/VITAMIN D 500 MG TAB PO SCH (22:29)
[2019-04-05] MEDS: FERROUS SULFATE 325MG TAB PO SCH (22:29)
[2019-04-05] MEDS: SUCRALFATE 1 GM TAB PO SCH (22:29)
[2019-04-05] MEDS: DOCUSATE SODIUM 100 MG CAP PO SCH (22:30)
[2019-04-05] MEDS: ACETAMINOPHEN TAB 650MG DOSE (2X325MG) PO PRN (22:30)
[2019-04-05] MEDS ORDERED: CALCIUM GLUCONATE 1,000 MG in D5W MINI-BAG PLUS 100 ML IV ONE (23:00)
[2019-04-05] MEDS ORDERED: CALCIUM CHLORIDE 10% 1 GM in D5W 100 ML IV ONE (23:15)
[2019-04-05 23:31] LABS: MAGNESIUM LEVEL 1.5 MG/DL (1.8-2.4); POTASSIUM SERUM 6.4 MEQ/L (3.5-5.1)
[2019-04-06] VITALS (9 sets, daily range): BP systolic 108–133; BP diastolic 49–70
[2019-04-06] MEDS ORDERED: MAG SULF 1GM/100ML (MAG RUN) 1 GM in APPROPRIATE DILUENT 1 EA IV ONE ×2
[2019-04-06] MEDS: MAGNESIUM OXIDE 400 MG TAB (MAG-OX) PO SCH ×3 (00:05→23:04)
[2019-04-06 01:00] LABS: CREATININE FOR GFR 1.72 MG/DL (0.55-1.30); GLOMERULAR FILTRATION RATE 30.3 (>32); POTASSIUM SERUM 6.2 MEQ/L (3.5-5.1)
[2019-04-06 05:42] LABS: CALCIUM LEVEL 8.7 MG/DL (8.8-10.2); CREATININE FOR GFR 1.71 MG/DL (0.55-1.30); GLOMERULAR FILTRATION RATE 30.5 (>32); POTASSIUM SERUM 5.6 MEQ/L (3.5-5.1)
[2019-04-06] MEDS: ACETAMINOPHEN TAB 650MG DOSE (2X325MG) PO PRN (06:24)
--- NOTE | 2019-04-06 07:15 | ECGEPIP ---
[facility] - ED Test Date: 2019-04-05 Pat Name: ANTOINETTE GARCIA Department: Room: [place] [address] Gender: Female Source Inspector: : [id number] Requested By: MISAEL ATKINS Order Number: [id number] Reading MD: Salome Hernandez Measurements Intervals [place] Rate: 72 P: IN: 0 QRS: -85 QRSD: 169 T: 79 QT: 437 QTc: 479 Interpretive Statements ELECTRONIC VENTRICULAR PACEMAKER ABNORMAL RHYTHM ECG SIMILAR 10/29/18 Electronically Signed on 04-06-2019 7:15:27 EDT by Salome Hernandez
[2019-04-06 07:21] LABS: HEMATOCRIT 29.4 % (36.0-47.0); HEMOGLOBIN 9.5 g/dl (12.0-15.5); MEAN CORPUSCULAR HEMOGLOBIN 33.8 pg (27.0-33.0); MEAN CORPUSCULAR HGB CONC 32.3 g/dl (32.0-36.5); MEAN CORPUSCULAR VOLUME 104.6 fl (80.0-96.0); PLATELET COUNT, AUTOMATED 181 10^3/uL (150-450); RED BLOOD COUNT 2.81 10^6/uL (4.00-5.40); WHITE BLOOD COUNT 6.9 10^3/uL (4.0-10.0)
[2019-04-06 07:41] LABS: CREATININE FOR GFR 1.71 MG/DL (0.55-1.30); GLOMERULAR FILTRATION RATE 30.5 (>32); POTASSIUM SERUM 5.8 MEQ/L (3.5-5.1)
--- NOTE | 2019-04-06 08:06 | CR ---
DATE OF CONSULTATION: 04/05/2019 INDICATION: Left femur fracture. HISTORY OF PRESENT ILLNESS: Juana is an 83-year-old female with multiple medical problems who sustained a mechanical fall at home earlier today and landed awkwardly on her left leg, heard a snap and then had pain and was unable to bear weight. X-rays at [facility] emergency room (ER) revealed a displaced supracondylar distal femur fracture around a total knee prosthesis. There were no open wounds. I was consulted for fracture management. I spoke to the patient and daughter who is at the bedside as the patient was admitted and they report she had one knee replaced about 10 years ago. The other was about 4 years ago and they are not sure which was which. That was performed by one of my partners. She typically is a walker ambulator but occasionally uses a cane outside due to the slope of her driveway. She denies losing consciousness. She has been happy with the results of her knee replacement. Denies any issues with those. She denies hip pain. She does have diabetic neuropathy in her feet at baseline. She has a history of either a non or minimally displaced ankle fracture on the left side last winter, according to the daughter and that healed up uneventfully. For the patient's full past medical history, past surgical history, medications, allergies, social history and review of systems please see the admitting history and physical, which I reviewed. Some of the highlights are renal insufficiency, atrial fibrillation not on blood thinners due to gastrointestinal bleed (GI) bleed, rheumatoid arthritis on immunosuppressive medication, congestive heart failure and pulmonary hypertension. She has hyperkalemia on admission. On exam this is an elderly female in no distress. She is alert and times three. Neurologic: Appropriate mood and pleasant affect. Cardiovascular: 1+ posterior tibial (PT) and dorsalis pedis (DP) pulses in the left foot and ankle. Skin was inspected on the left side. There were no open wounds. She has a healed knee replacement incision. Musculoskeletal: There are no gross deformities to the left lower extremity. Her knee immobilizer was opened and there is tenderness to palpation in the supracondylar femur area. There is no tenderness palpation of the greater trochanter or ankle. Knee range of motion deferred due to known fracture. Her calf is soft and compressible. She fires EHL, FHL, TA and GS. Sensation to light touch in her foot is diminished at its baseline due to neuropathy. X-RAYS: Two views of the left knee, two views of the left femur from the emergency room (ER) reveal a moderately displaced periprosthetic distal femur fracture. I requested a CT scan and it does not appear that the fracture extends into the implant itself. ASSESSMENT/PLAN: Juana is an 83-year female with a displaced left periprosthetic distal femur fracture. She has been admitted to the medical service and I spoke to the hospitalist who states the patient will require optimization, in particular, correcting hyperkalemia and renal function. The hope will be that she could undergo open reduction internal fixation tomorrow on 04/06/2019 with the on-call orthopedic physician who I have contacted. We did briefly discuss using locking plate versus a retrograde femoral nail. The hope will that this will be amendable to a retrograde femoral nail. All there questions were answered and they agreed to plan.
[2019-04-06] MEDS: DOCUSATE SODIUM 100 MG CAP PO SCH ×2 (08:43→23:05)
[2019-04-06] MEDS: CALCIUM/VITAMIN D 500 MG TAB PO SCH ×2 (08:43→23:04)
[2019-04-06] MEDS: LEVOTHYROXINE 75MCG TABLET (0.075MG) PO SCH (08:43)
[2019-04-06] MEDS: GEMFIBROZIL 600 MG TAB PO SCH ×2 (08:43→23:05)
[2019-04-06] MEDS: LORATADINE 10 MG TAB PO SCH (08:43)
[2019-04-06] MEDS: FERROUS SULFATE 325MG TAB PO SCH ×2 (08:43→23:05)
[2019-04-06] MEDS: LR 1,000 ML IV SCH ×2 (08:44→23:04)
[2019-04-06] MEDS: METOPROLOL SUCC (TopROL XL) 100MG *XL* TAB PO SCH (08:48)
[2019-04-06] MEDS: OMEPRAZOLE 20 MG CAP PO SCH ×2 (08:48→23:04)
[2019-04-06] MEDS ORDERED: SOD POLYSTYRENE SULFONATE SUSP 15 GM/60 ML UD PO ONE ×2 (09:00)
[2019-04-06] MEDS ORDERED: SPIRONOLACTONE 25 MG TAB PO SCH (09:00)
[2019-04-06] MEDS ORDERED: FUROSEMIDE 100 MG/10 ML VIAL (J1940) IV ONE (09:00)
[2019-04-06] MEDS: SUCRALFATE 1 GM TAB PO SCH ×4 (09:14→23:05)
[2019-04-06] MEDS: VITAMIN D 1,000 INTERNATIONAL UNITS TABLET PO SCH (09:14)
--- NOTE | 2019-04-06 12:30 | IPNPDOC ---
Text Note Date of Service The patient was seen on 04/06/19. NOTE S: Patient states pain controlled. multiple family visiting. States increased urination and defecation with medications (no cody placed). states no CP, no N, no V, no change to chronic SOB. Patient has received kayexlate and lasix for elevated potassium. O: Vitals as below General: pleasant NAD AAOx3 HRRR LCTA anteriorly Ext: left leg deformity A/P: Left femur fracture - ortho consulted and surgery planned for 04/06/19 if potassium down and cleared by cardiology Hyperkalemia - treat with IV lasix, kayexalte. repeat K at 1200 pending. Suspect hyperkalemia due to spironolactone. medication on hold. paroxysmal Afib - rated controlled with metoprolol and pacemaker (placed for history of complete AV block - do not turn off pacemaker). Patient was taken off all anticoagulation (except for aspirin) in 10/18/2018 after severe GI bleed. Post op DVT prophylaxis will need to consider lovenox or sc heparin instead of NOACs. Patient states Dr Lin is planning outpatient procedure to prevent clots. Diabetes - not on meterman insulin, not on oral agents due to severe hypoglycemia - diet controlled with home BS ranging 120-200. Goal of blood sugar is below 180 to promote post op healing. Will start insulin POST OP . history of CHF with severe pulmonary HTN - without current exacerbation - continue home regimen. keep on dry side post operatively, continue metoprolol, hold spironolactone and change po lasix to IV in perioperative period. CKD stage III - creatinine baseline is 1.2 to 1.5. monitor Erosive arthritis - hold NSAID or DMARDs CODE STATUS: DNR (rescind for surgery) DVT prophylaxis: on hold in anticipation of surgery tomorrow AM VS,Fishbone, I+O VS, Fishbone, I+O Laboratory Tests 04/05/19 15:44 Red Blood Count 3.15 L, Mean Corpuscular Volume 101.6 H, Mean Corpuscular Hemoglobin 32.7, Mean Corpuscular Hemoglobin Concent 32.2, Red Cell Distribution Width 14.9 H 04/05/19 21:40 Calcium Level 8.4 L 04/05/19 22:38 04/06/19 00:18 Calcium Level 9.0 04/06/19 02:20 04/06/19 04:52 Calcium Level 8.7 L 04/06/19 06:30 Calcium Level 9.0, Red Blood Count 2.81 L, Mean Corpuscular Volume 104.6 H, Mean Corpuscular Hemoglobin 33.8 H, Mean Corpuscular Hemoglobin Concent 32.3, Red Cell Distribution Width 14.8 H Vital Signs Date Time Temp Pulse Resp B/P (MAP) Pulse Ox O2 Delivery O2 Flow Rate FiO2 04/06/19 08:48 78 137/61 04/06/19 06:00 99.1 18 98 04/05/19 20:09 Room Air I&O- Last 24 Hours up to 6 AM 04/06/19 06:00 Intake Total 200 ml Output Total 200 ml Balance 0 ml LOPEZ MARQUEZ DO Apr 06, 2019 12:30
[2019-04-06 12:45] LABS: CALCIUM LEVEL 8.9 MG/DL (8.8-10.2); CREATININE FOR GFR 1.76 MG/DL (0.55-1.30); GLOMERULAR FILTRATION RATE 29.5 (>32); POTASSIUM SERUM 4.8 MEQ/L (3.5-5.1)
[2019-04-06] MEDS ORDERED: ceFAZolin 1GM INJ (J0690 PER 500MG) As Ordered ONE (13:48)
[2019-04-06] MEDS ORDERED: MIDAZOLAM INJ 2 MG/2 ML VIAL (J2250) As Ordered ONE (14:04)
[2019-04-06] MEDS ORDERED: KETAMINE HCL 200 MG/20 ML VIAL As Ordered ONE (14:04)
[2019-04-06] MEDS ORDERED: LIDOCAINE 2% INJ 100 MG/5 ML SYRINGE As Ordered ONE (14:04)
[2019-04-06] MEDS ORDERED: PROPOFOL 200 MG/20 ML VIAL As Ordered ONE ×2 (14:04→14:05)
--- NOTE | 2019-04-06 14:04 | CR ---
DATE OF CONSULTATION: 04/06/2019 REFERRING PHYSICIAN: Dr. Kim Del Rosario. REASON FOR CONSULTATION: Preoperative cardiac clearance, paroxysmal atrial fibrillation. HISTORY OF PRESENT ILLNESS: Mrs. Juana Doty is a pleasant 83-year-old woman with a history of paroxysmal atrial fibrillation, sick sinus syndrome/tachycardiac, bradycardia syndrome, high-grade arteriovenous (AV) block, status post Medtronic dual-chamber pacemaker implant 11/07/2015, chronic heart failure, systemic hypertension, nonrheumatic mitral valve disease with moderate right atrial regurgitation and severe tricuspid regurgitation. She has multiple other medical problems detailed in the past history. The patient had a mechanical fall 04/05/2019 and this resulted in a left femur fracture. The patient follows with Dr. Jocy Lin for her cardiac care and Dr. Giorgi Masterson for chronic kidney disease and Dr. Rowland for rheumatology and Dr. Robert Benjamin her primary care physician. Up until she fractured her femur, she was independent with activities of daily living and had no limitations in her activities of daily living. No exertional dyspnea, orthopnea, paroxysmal nocturnal dyspnea (PND) or peripheral edema. No pain, pressure, tightness, squeezing or heaviness within the chest, neck, jaw, or upper extremities with or without exertion. No palpitations. No presyncope or syncope. No claudication. OTHER PAST MEDICAL/SURGICAL HISTORY: Paroxysmal atrial fibrillation for which she is on aspirin. She is not on oral anticoagulation secondary to previous gastrointestinal (GI) bleed. Chronic right-sided heart failure and severe pulmonary hypertension with severe tricuspid regurgitation. Hyperlipidemia. Hypothyroidism. Peptic ulcer disease. Gastroesophageal reflux disease. Chronic kidney disease. Erosive rheumatoid arthritis. GI bleed with hypotensive shock 10/23/2018. Type 2 diabetes. Hypothyroidism. Moderate right regurgitation. Severe tricuspid regurgitation. High-grade second degree AV block for which she is status post dual-chamber pacemaker. Status post Medtronic dual-chamber pacemaker 11/07/2015. Sick sinus syndrome/tachycardia bradycardial syndrome. Systemic regurgitation. Left hip fracture (femur) 04/06/2019. Prior right breast biopsy. Appendectomy. Cholecystectomy. Prior knee replacement. Total abdominal hysterectomy. SOCIAL HISTORY: Prior smoker. No alcohol. No illicit drug use. FAMILY HISTORY: Father of a heart attack at age 64. REVIEW OF SYSTEMS: 10-point review of system is negative other than as per history of present illness (HPI) above. No anxiety, depression or panic attacks. ADVERSE DRUG REACTIONS: LATEX (severe anaphylaxis). CODEINE (dizziness, blurred vision, headache, dry mouth). [place] tree. MEDICATIONS PRIOR TO ADMISSION: - allopurinol 300 mg nightly - aspirin 81 mg daily - calcium carbonate with vitamin D 600 mg of calcium carbonate and vitamin D 400 international units, one capsule twice a day. - vitamin D3 2000 units by mouth daily - ferrous sulfate 325 mg twice a day - Flonase, one spray both nares as needed - furosemide 60 mg once daily - gemfibrozil 60 mg twice a day - levothyroxine 37.5 mcg daily - loratadine 10 mg daily - metoprolol succinate 100 mg daily - omeprazole 20 mg twice a day - spironolactone 25 mg daily - sucralfate 1 gram a.c. meals and nightly. PATIENT'S CURRENT MEDICATIONS: The patient's current medications in the hospital are as follows: - Acetaminophen 650 mg every 4 hours as needed - Mylanta 30 mL daily as needed - allopurinol 300 mg nightly - Os-Nikko D 500 mg twice a day - Colace 100 mg twice a day - ferrous sulfate 325 mg twice a day - Flonase one spray daily as needed - gemfibrozil 60 mg twice a day - Ringer's lactate 75 mL/h IV - Synthroid 37.5 mcg daily -Claritin 10 mg daily - Milk of Magnesia 30 mL daily for constipation - magnesium oxide 400 mg twice a day - metoprolol succinate 100 mg daily - morphine 1 mg IV every hour for severe pain - omeprazole 40 mg by mouth twice a day - sucralfate 1 gram before meals and nightly. - vitamin D 2000 units daily PHYSICAL EXAMINATION: Pleasant elderly woman who is obese. Not in any respiratory or psychologic distress. Height 59 inches, weight 88.3 kg, body mass index 39.3. Temperature 99.1, pulse 78, respiratory rate 18, blood pressure 137/61, Oxygen saturation 98% on room air. No conjunctival pallor or scleral icterus or xanthomas. Upper and lower dentures present. Oral mucosal is moist and without pallor or stenosis. Jugular venous pulsations were to the angle of the jaw with the patient at 30 degrees with a prominent CV-wave. Trachea midline. No palpable thyroid. No clubbing, nail bed cyanosis, or splinter hemorrhages. No skin lesions, skin pallor, or icterus. Oriented to person, place and time. Mood and affect normal. Curvature of the spine normal. Gait was not appropriate to test this time as the patient has a current left femur fracture. Gross motor strength and tone otherwise appeared normal. No fasciculations or tremors. Respiratory expansion effort was good. No crackles or wheezes. No dullness to percussion. No palpable apex beat. No parasternal lifts, heaves, thrills or palpable heart sounds. Pacemaker in situ left pectoral region. First and second heart sounds normal. No S3 or S4. Grade 2 pansystolic murmur at the apex and lower left parasternal border. Carotids were normal in volume and contour and without bruits. No palpable abdominal aorta. No abdominal bruits. Femoral pulses not checked as the patient has a left femur fracture. Pedal pulses normal. No peripheral edema. Some skin venules were present. A few varicose veins. Abdomen was obese, soft, nontender with normal bowel sounds. No hepatomegaly or splenomegaly. Liver span difficult to assess due to abdominal obesity. Stool for occult blood not presently indicated. ELECTROCARDIOGRAM: 04/05/2019 at 1538 hours shows sinus rhythm, P- synchronous ventricular paced rhythm. Portable upright chest x-ray 04/05/2019 at 3:31 pm shows probable cardiomegaly despite the portable technique. Presence of a Medtronic dual-chamber pacemaker in situ left pectoral region with bipolar active fixation leads in good position at the right ventricle apex position and in the right atrial appendage. No pulmonary vascular redistribution. No pleural effusions. No alveolar edema. Some increase in interstitial markings were present. Some peribronchial cuffing was present. Adequate inflation for portable technique. LABORATORY WORK: 04/06/2019 at 6:30 a.m. was reviewed: Hemoglobin 9.5, hematocrit 29.4, platelets 181. Sodium 138, chloride 111, CO2 118, BUN 47, creatinine 1.71, estimated GFR 305, glucose 197, calcium 9.0. Laboratory work 04/05/2019 shows magnesium 1.5. ASSESSMENT AND RECOMMENDATIONS: 1. Paroxysmal atrial fibrillation: The electrocardiogram on admission was somewhat difficult for analysis of atrial activity but appears to be underlying sinus rhythm. She is not symptomatic with palpitations. She has a [id number] score of 5 with 1 point scored for congestive heart failure, 1 point for hypertension, 2 points for age greater than 75 and 1 point for diabetes. She had a recent major gastrointestinal (GI) bleed and has peptic ulcer disease while on anticoagulation and therefore, she is not a suitable candidate for oral anticoagulation. She is therefore, maintained on aspirin. She is at present not a good candidate for a Watchman left atrial occluder device because she will not be able to tolerate oral anticoagulation for 45 days following placement of a Watchman device. She has increased fall risk as she has demonstrated with the current admission. She has associated sick sinus syndrome, tachycardia bradycardia syndrome and previous high grade AV block for which she is status post dual-chamber pacemaker in situ . Recommend continuation of aspirin. Continue metoprolol succinate 100 mg daily. 2. Dual-chamber pacemaker (Medtronic) in situ. Stable. She follows with Dr. Lin for this. 3. History of high-grade second degree AV block. Patient is status post dual-chamber pacemaker in situ. Stable. She is P-synchronous ventricular paced on XG. 4. Sick sense syndrome/tachycardia bradycardia syndrome. Status post dual-chamber pacemaker in situ. Maintained on metoprolol succinate. 5. Chronic right heart failure. She appears compensated on examination. Her jugular venous pulsations are elevated to the angle of the jaw and this is primarily the result of severe tricuspid regurgitation. She is maintained on furosemide and spironolactone for heart failure. Spironolactone is presently on hold because of hyperkalemia. Continue furosemide. 6. Preoperative cardiac clearance: Femur fracture surgery is generally considered to be an intermediate risk procedure defined as 1%-5% risk of acute non-fatal acute myocardial infarction or cardiac mortality. The patient does have any [place] [employer]/[place] [employer] major clinical predictors. Her intermediate clinical predictors include chronic kidney disease and type 2 diabetes and compensated heart failure. Minor clinical predictors include rhythm other than sinus, abnormal ECG, and advanced age. At this point, I would consider the patient cleared to be able to proceed to the operating room for surgery to fix the femur fracture once her potassium has come into the normal range. This was discussed with Dr. Kim Del Rosario [id number]. 7. Systemic hypertension: Blood pressure appears to be controlled. Continue with furosemide and metoprolol succinate at the current dosages. Spirolactone is presently on hold because of hyperkalemia. 8. Nonrheumatic mitral valve disease with moderate regurgitation. Stable. She does not require surgical intervention for this.
[2019-04-06] MEDS ORDERED: LIDOCAINE 2% INJ 100 MG/5 ML SDV (FOR ANES.) As Ordered ONE (14:05)
--- NOTE | 2019-04-06 17:03 | REP ---
Clinical: Fracture fixation. Technique: Intraoperative fluoroscopic imaging using portable C-arm technique. Findings: Satisfactory open reduction and fixation with intramedullary raúl through the mid/distal femur spans in the oblique fracture of the distal femoral diaphysis. Total fluoroscopic time 114 seconds. Impression: Satisfactory open reduction and fixation for distal femoral fracture. Electronically Signed by Mikal Field MD 04/06/2019 04:55 P
[2019-04-06] MEDS ORDERED: PERCOCET 5MG/325MG TAB As Ordered ONE (17:26)
[2019-04-06] MEDS ORDERED: fentaNYL 100 MCG/2 ML INJECTION (J3010) As Ordered ONE (17:26)
[2019-04-06] MEDS: fentaNYL 100 MCG/2 ML INJECTION (J3010) IV PRN ×3 (17:28→17:56)
[2019-04-06] MEDS ORDERED: METOCLOPRAMIDE INJ 10MG/2ML VIAL (J2765) IV PRN (17:45)
[2019-04-06] MEDS ORDERED: LR 1,000 ML IV SCH (17:45)
[2019-04-06] MEDS ORDERED: PERCOCET 5MG/325MG TAB PO PRN (17:45)
[2019-04-06] MEDS ORDERED: MORPHINE 4 MG/ML 1ML VIAL/SYRINGE (J2270) IV PRN ×3 (17:45)
[2019-04-06] MEDS ORDERED: ONDANSETRON 4MG/2ML VIAL (J2405) IV PRN (17:45)
[2019-04-06] MEDS ORDERED: GLUCAGON FOR INJ 1 MG VIAL (J1610) SC PRN (18:15)
[2019-04-06] MEDS ORDERED: DEXTROSE 50% 50 ML SYRINGE IV PRN (18:15)
[2019-04-06] MEDS ORDERED: GLUCOSE 4 GM CHEW TABLET PO PRN (18:15)
[2019-04-06] MEDS: HumaLOG INSULIN (NovoLOG) PER UNIT SC SCH (21:00)
[2019-04-06] MEDS: ALLOPURINOL 300 MG TAB PO SCH (23:05)
[2019-04-06] MEDS: PERCOCET 5MG/325MG TAB PO PRN (23:05)
[2019-04-07 03:25] VITALS: BP 124/63
[2019-04-07] MEDS: PERCOCET 5MG/325MG TAB PO PRN ×3 (05:50→21:23)
[2019-04-07] MEDS ORDERED: PERCOCET 5MG/325MG TAB PO PRN (06:30)
[2019-04-07 07:25] VITALS: BP 128/55
[2019-04-07] MEDS: OMEPRAZOLE 20 MG CAP PO SCH ×2 (08:05→21:21)
[2019-04-07] MEDS: VITAMIN D 1,000 INTERNATIONAL UNITS TABLET PO SCH (08:05)
[2019-04-07] MEDS: FERROUS SULFATE 325MG TAB PO SCH ×2 (08:07→21:21)
[2019-04-07] MEDS: LEVOTHYROXINE 75MCG TABLET (0.075MG) PO SCH (08:07)
[2019-04-07] MEDS: LORATADINE 10 MG TAB PO SCH (08:07)
[2019-04-07] MEDS: SUCRALFATE 1 GM TAB PO SCH ×4 (08:07→21:23)
[2019-04-07] MEDS: FUROSEMIDE 20 MG TAB PO SCH (08:07)
[2019-04-07] MEDS: DOCUSATE SODIUM 100 MG CAP PO SCH ×2 (08:08→21:23)
[2019-04-07] MEDS: CALCIUM/VITAMIN D 500 MG TAB PO SCH ×2 (08:08→21:21)
[2019-04-07] MEDS: METOPROLOL SUCC (TopROL XL) 100MG *XL* TAB PO SCH (08:08)
[2019-04-07] MEDS: MAGNESIUM OXIDE 400 MG TAB (MAG-OX) PO SCH ×2 (08:08→21:23)
[2019-04-07] MEDS: GEMFIBROZIL 600 MG TAB PO SCH ×2 (08:08→21:23)
[2019-04-07] MEDS: HumaLOG INSULIN (NovoLOG) PER UNIT SC SCH ×4 (08:09→21:00)
[2019-04-07] MEDS: MIRALAX *UNIT DOSE* 17GM PACKET PO SCH (08:09)
--- NOTE | 2019-04-07 09:47 | RO ---
DATE OF PROCEDURE: 04/06/2019 PREPROCEDURE DIAGNOSIS: Periprosthetic distal femur fracture left knee. POSTPROCEDURE DIAGNOSIS: Periprosthetic distal femur fracture left knee. PROCEDURE: Open reduction, internal fixation (ORIF) with retrograde intramedullary nailing of a left periarticular distal femur fracture above a total knee replacement. SURGEON: Dr. Edvin Marques. REVENUE ANALYST: None. ANESTHESIA: Spinal. COMPLICATIONS: None. ESTIMATED BLOOD LOSS: 150 mL. SPECIMENS: None. COMPLICATIONS: None. PROCEDURE: Antibiotics were given and a successful left spinal was induced. No tourniquet was utilized. She had a large pannus, her belly would hand over her distal thigh, and thus had to be taped up out of the way. She became incontinent of stool after the spinal was induced and it had to be cleaned up. Once that was all done, once again we taped her pannus up out of the way and then very carefully prepped and draped her left lower extremity carefully. After appropriate time out was done, we began the procedure. Fluoroscopic imaging on the Wily table with a metal triangular wedge was used to help reduce the fracture and we could get it reasonably anatomic in both the AP and lateral planes. Thus, at this point, a previous scar was opened sharply just above the patella and extending distally. Medial parapatellar arthrotomy was performed. Hematoma was evacuated. Threaded guide raúl was placed down the center of the femoral canal through the notch in the prosthesis and that was confirmed under fluoroscopic imaging in the AP and lateral planes. That was then exchanged with a ball tip raúl and then we placed that into the region of the intertrochanteric area. Then we used the measuring device to help measure the raúl. We chose a 300 mm raúl. Once that had been determined and the raúl was opened, we then began reaming, starting at 9 mm and advanced up to 11.5 mm. Thus, the 10 mm raúl was eventually chosen. First we thought that we were going to use the 11.5 but felt that it was too large of a diameter given the isthmus of her femur. Once that reaming had been completed, the raúl was loaded on the nut tapper device and inserted across the fracture site, checking the AP and lateral planes, confirming we had good reduction. The raúl was then first set and then we noted that to get enough distal purchase that I had to back the raúl out just a little bit. I removed the nut tapper device and extended and flexed the knee, observing directly that there was no impingement on the polyethylene post. Thus, I felt the raúl was in appropriate position, the handle was reattached to the raúl, and then we made a small lateral puncture incision longitudinally and first drilled across the proximal interlock of the distal most portion of the screw. Two cortices were felt, measured, and we measured for an appropriate sized screw and the screw was entered, there was excellent purchase. We introduced the drill sleeve for the Helical blade and that was passed down against the lateral femoral cortex, the guidepin drilled, measured, and then we opened the lateral cortex with a large drill just enough to open the lateral cortex, and then introduced the Helical blade under fluoroscopic imaging. The locking end cap was placed. Fluoroscopic imaging in the AP and lateral planes confirmed we had good reduction of the fracture and good placement of the hardware. At this point, we turned our attention to the proximal interlock screw. We got an AP view of the femur proximally and it was right underneath her pannus. We had to hold that up out of the way, as we made a small stab incision and used the hemostat to dissect down to the bone, and then used an endotracheal tube over the top of the drill to help protect the soft tissues. We introduced the drill down directly onto the femoral cortex, making sure that the endotracheal tube acted as a protective soft tissue drill sleeve. Then once we were certain the tip was overlying the proximal interlock hole under fluoroscopic image, I drilled and then removed the drill, placed the measuring guide, made sure it was across the hole and measured at 30 mm. We checked it both in the AP and lateral plane. We then opened the 30 mm proximal interlock screw, tied it with a Vicryl suture attached to the screwdriver and then introduced it down into the depths of the soft tissues to the bone and found the hole and then screwed it down with excellent purchase, confirming good screw placement in the AP and lateral planes. Final fluoroscopic imaging in the AP and lateral planes felt that the hardware was placed satisfactorily, as was the fracture well reduced. Thus, we copiously irrigated with pulsatile lavage irrigation the knee joint arthrotomy and then closed with several interrupted #1 PDS sutures, subdermal tissues were irrigated and closed with interrupted 2-0 PDS sutures. The skin was closed with chance. The lateral wound was closed with interrupted 2-0 PDS suture in the tensor fascia and then subdermal tissues. [place] were used in the skin. The proximal incision was closed with chance. Optifoam dressing applied to the knee replacement wound anteriorly. Dry, sterile, bulky ortho dressings were applied to the remaining portions of the wounds, and they were covered with an [place] wrap. She was placed back in a Outlook brace and then transferred to the recovery room in stable condition. There were no intraoperative complications.
[2019-04-07 10:00] VITALS: BP 107/50
[2019-04-07] MEDS: HEPARIN SOD (PORCINE) 5000 UNITS/ML VIAL SQ SCH ×2 (11:11→21:21)
[2019-04-07] MEDS: ASPIRIN 81 MG ENTERIC TAB PO SCH (11:11)
[2019-04-07] MEDS: SPIRONOLACTONE 12.5MG PER 1/2 TABLET PEG SCH (11:11)
--- NOTE | 2019-04-07 11:11 | REP ---
Clinical: Status post fixation for distal femur fracture. Technique AP and cross-table lateral views. Findings: There is evidence for prior knee replacement. An intramedullary raúl is identified through the femoral shaft spanning the distal femoral metadiaphyseal fracture. Overlying postsurgical changes are appreciated. Impression: Status post open reduction and fixation for distal femoral fracture. Electronically Signed by Mikal Field MD 04/07/2019 11:03 A
--- NOTE | 2019-04-07 11:13 | REP ---
Clinical: Status post open reduction and fixation. Technique: AP and cross-table lateral views of the left femur. Findings: The patient is status post open reduction and fixation with intramedullary raúl through the femoral shaft spanning the distal femoral fracture. Satisfactory reduction. Postsurgical changes are appreciated. Evidence for prior knee replacement. Impression: Status post open reduction and fixation for distal femoral fracture. Electronically Signed by Mikal Field MD 04/07/2019 11:04 A
[2019-04-07] MEDS: LR 1,000 ML IV SCH (11:40)
--- NOTE | 2019-04-07 13:23 | IPNPDOC ---
Text Note Date of Service The patient was seen on 04/07/19. NOTE S: patient states no leg pain (pain controlled post op). no CP, no SOB, no N. She is POD day 1 ORIF of left distal femur. O: Vitals Left femur fracture - S/P Open reduction, internal fixation (ORIF) with retrograde intramedullary nailing of a left periarticular distal femur fracture above a total knee replacement on 04/06/19. management per ortho. Non weight bearing left leg. check post op xrays knee/femur per Dr Mosquera. Hyperkalemia - treated with IV lasix, kayexalte and improved prior to surgery; Suspect hyperkalemia due to spironolactone. Post operatively, spironolactone started at 1/2 dose. paroxysmal Afib - rated controlled with metoprolol and pacemaker (placed for history of complete AV block). Cardiology consulted and note reviewed. Patient was taken off all anticoagulation (except for aspirin) in 10/18/2018 after severe GI bleed. Post op DVT prophylaxis use sc heparin plus low dose ASA and monitor platelets/Hgb for bleeding. Diabetes - not on jail insulin, not on oral agents due to severe hypoglycemia - diet controlled with home BS ranging 120-200. Goal of blood sugar is below 180 to promote post op healing. Lispro sliding scale insulin ordered. Consider levemir if not improved. history of CHF with severe pulmonary HTN - without current exacerbation - continue home regimen (except 1/2 dose of spironolactone due to elevated K). keep on dry side post operatively, continue metoprolol,po lasix. CKD stage III - creatinine baseline is 1.2 to 1.5. monitor Erosive arthritis - hold NSAID or DMARDs DISPOSITION: non weight bearing and will need rehab or ARU placement CODE STATUS: DNR (rescind for surgery) DVT prophylaxis: ASA 81mg and sc heparin. Not candidate for NOAC. VS,Fishbone, I+O VS, Fishbone, I+O Laboratory Tests 04/06/19 12:08 Calcium Level 8.9 Vital Signs Date Time Temp Pulse Resp B/P (MAP) Pulse Ox O2 Delivery O2 Flow Rate FiO2 04/07/19 06:20 16 04/07/19 03:25 98.7 70 124/63 (83) 94 9/1/19 19:25 2.0 04/05/19 20:09 Room Air I&O- Last 24 Hours up to 6 AM 04/07/19 06:00 Intake Total 775 ml Output Total 700 ml Balance 75 ml LOPEZ MARQUEZ DO Apr 07, 2019 07:44
[2019-04-07 14:00] VITALS: BP 106/49
[2019-04-07] MEDS: ALLOPURINOL 300 MG TAB PO SCH (21:21)
[2019-04-07 22:30] VITALS: BP 107/50
[2019-04-08] MEDS: LR 1,000 ML IV SCH (01:00)
[2019-04-08 05:00] VITALS: BP 110/54
[2019-04-08 07:23] LABS: HEMOGLOBIN 8.5 g/dl (12.0-15.5); RED BLOOD COUNT 2.57 10^6/uL (4.00-5.40); WHITE BLOOD COUNT 10.2 10^3/uL (4.0-10.0)
[2019-04-08 07:24] LABS: MEAN CORPUSCULAR HEMOGLOBIN 33.1 pg (27.0-33.0); MEAN CORPUSCULAR HGB CONC 31.5 g/dl (32.0-36.5); MEAN CORPUSCULAR VOLUME 105.1 fl (80.0-96.0); PLATELET COUNT, AUTOMATED 180 10^3/uL (150-450)
[2019-04-08 07:44] LABS: CALCIUM LEVEL 8.4 MG/DL (8.8-10.2); CREATININE FOR GFR 3.22 MG/DL (0.55-1.30); GLOMERULAR FILTRATION RATE 14.7 (>32); POTASSIUM SERUM 4.7 MEQ/L (3.5-5.1)
[2019-04-08] MEDS: CALCIUM/VITAMIN D 500 MG TAB PO SCH ×2 (08:11→20:40)
[2019-04-08] MEDS: LORATADINE 10 MG TAB PO SCH (08:11)
[2019-04-08] MEDS: HumaLOG INSULIN (NovoLOG) PER UNIT SC SCH ×4 (08:11→20:41)
[2019-04-08] MEDS: LEVOTHYROXINE 75MCG TABLET (0.075MG) PO SCH (08:12)
[2019-04-08] MEDS: FERROUS SULFATE 325MG TAB PO SCH ×2 (08:12→20:40)
[2019-04-08] MEDS: SUCRALFATE 1 GM TAB PO SCH ×4 (08:12→20:41)
[2019-04-08] MEDS: GEMFIBROZIL 600 MG TAB PO SCH ×2 (08:12→20:40)
[2019-04-08] MEDS: FUROSEMIDE 20 MG TAB PO SCH (08:12)
[2019-04-08] MEDS: OMEPRAZOLE 20 MG CAP PO SCH ×2 (08:12→20:40)
[2019-04-08] MEDS: DOCUSATE SODIUM 100 MG CAP PO SCH ×2 (08:12→20:41)
[2019-04-08 08:13] VITALS: BP 110/54
[2019-04-08] MEDS: MAGNESIUM OXIDE 400 MG TAB (MAG-OX) PO SCH ×2 (08:13→20:41)
[2019-04-08] MEDS: MIRALAX *UNIT DOSE* 17GM PACKET PO SCH (08:13)
[2019-04-08] MEDS: ASPIRIN 81 MG ENTERIC TAB PO SCH (08:13)
[2019-04-08] MEDS: SPIRONOLACTONE 12.5MG PER 1/2 TABLET PEG SCH (08:13)
[2019-04-08] MEDS: HEPARIN SOD (PORCINE) 5000 UNITS/ML VIAL SQ SCH ×2 (08:13→20:40)
[2019-04-08] MEDS: METOPROLOL SUCC (TopROL XL) 100MG *XL* TAB PO SCH (08:13)
[2019-04-08] MEDS: VITAMIN D 1,000 INTERNATIONAL UNITS TABLET PO SCH (08:13)
[2019-04-08] MEDS: NS 1,000 ML IV SCH ×2 (10:48→23:07)
[2019-04-08] MEDS: PERCOCET 5MG/325MG TAB PO PRN (10:51)
--- NOTE | 2019-04-08 12:30 | IPN ---
DATE OF SERVICE: 04/08/2019 SUBJECTIVE: The patient was found to have a creatinine of 3.22 from yesterday's creatinine of 1.76. Urine output overnight was 700. The patient otherwise denies any shortness of breath. She denies any decrease in urine output. She denies any dysuria, urgency, frequency, fever, chills, flank pain. She denies any hematuria. She still complains of pain at the hip, improved with current pain medications with as needed Tylenol. Repeat femoral x-ray yesterday, 04/07/2019, shows status post open reduction internal fixation (ORIF) distal femoral fracture on the left. OBJECTIVE: Vitals: Temperature 98.6, pulse 70, respiratory rate 14, blood pressure 110/54, 93% on room air. General: The patient is awake, alert, oriented to person and place, able to converse appropriately, in no respiratory distress or use of respiratory accessory muscles. Dry mucous membranes. Lungs: Clear to auscultation. No wheezing, rales or rhonchi. Heart: S1 and S2. Sinus rhythm. Abdomen: Soft. Obese. Nontender. Nondistended. Postop left hip. Skin color is pink, warm, dry. Extremities: No cyanosis or clubbing. LABORATORY DATA: White count 10, hemoglobin 8.5, hematocrit 27, platelet count 180. Sodium 137, potassium 4.7, chloride 103, bicarbonate 24, BUN 64, creatinine 3.22, glucose 197. ASSESSMENT AND PLAN: This is an 83-year-old with history of chronic kidney disease (CKD) stage 3 with baseline creatinine 1.2 to 1.3, atrial fibrillation not anticoagulation due to history of GI bleed and usually on aspirin, congestive heart failure with severe pulmonary hypertension, dyslipidemia, hypothyroidism, peptic ulcer disease, reflux, rheumatoid arthritis, GI bleed with hypotensive shock in 10/2018, diabetes with recurrent hyperglycemia, hypothyroidism, mitral regurgitation, severe tricuspid regurgitation, history of complete AV block with pacemaker, essential hypertension, and anemia due to chronic kidney disease, admitted due to a fall with resulting left hip fracture status post ORIF who had hyperkalemia and Spironolactone had been discontinued. CURRENT ISSUES: 1. Acute on chronic renal failure, currently with a creatinine of 3.22. The patient's diuretics, Lasix and Spironolactone, have been discontinued. IV fluids will be given. Will monitor strict ins and outs, daily weights, post void residual every 4. Rule out obstructive causes. 2. Hyperkalemia, resolved, due to Spironolactone. 3. Metabolic acidosis, resolved, diuretics have been withheld. 4. Left ORIF status post mechanical fall. The patient is managed with aspirin daily. No anticoagulant due to history of GI bleed in October 2018 managed per orthopedic surgery. Currently on MiraLAX, heparin subcutaneous. 5. Atrial fibrillation, on metoprolol 100 daily. Rate controlled. No anticoagulation due to recent GI bleed. 6. Hypothyroidism, on levothyroxine. 7. Anemia, on chronic ferrous sulfate. 8. Vitamin D deficiency, on calcium and vitamin D replacement. 9. Dyslipidemia, on Lopid. 10. Type 2 diabetes, on hyperglycemic protocol, insulin sliding scale, consistent carbohydrate diet. 11. History of GI bleed, on Carafate and proton pump inhibitor on Prilosec 40 twice a day.
[2019-04-08 14:15] VITALS: BP 112/53
[2019-04-08 20:24] LABS: CALCIUM LEVEL 7.8 MG/DL (8.8-10.2); CREATININE FOR GFR 3.36 MG/DL (0.55-1.30); POTASSIUM SERUM 4.6 MEQ/L (3.5-5.1)
[2019-04-08] MEDS: ALLOPURINOL 300 MG TAB PO SCH (20:40)
[2019-04-08 22:00] VITALS: BP 119/60
[2019-04-09 06:00] VITALS: BP 119/60
[2019-04-09 07:01] LABS: HEMATOCRIT 24.9 % (36.0-47.0); HEMOGLOBIN 7.9 g/dl (12.0-15.5); MEAN CORPUSCULAR HEMOGLOBIN 32.6 pg (27.0-33.0); MEAN CORPUSCULAR HGB CONC 31.7 g/dl (32.0-36.5); MEAN CORPUSCULAR VOLUME 102.9 fl (80.0-96.0); PLATELET COUNT, AUTOMATED 189 10^3/uL (150-450); RED BLOOD COUNT 2.42 10^6/uL (4.00-5.40); WHITE BLOOD COUNT 7.9 10^3/uL (4.0-10.0)
[2019-04-09 07:21] LABS: CALCIUM LEVEL 7.7 MG/DL (8.8-10.2); CREATININE FOR GFR 3.09 MG/DL (0.55-1.30); GLOMERULAR FILTRATION RATE 15.4 (>32); POTASSIUM SERUM 4.3 MEQ/L (3.5-5.1)
[2019-04-09] MEDS ORDERED: PERC5TAB12 PO (07:25)
--- NOTE | 2019-04-09 08:11 | DS.PDOC ---
Discharge Summary General Date of Admission Apr 05, 2019 at 17:57 Date of Discharge 04/09/19 Discharge Summary ORTHOPEDIC SURGEON: DR. BELLA LAST SURGERY: LEFT HIP ORIF DISCHARGE DIAGNOSES: ACUTE KIDNEY INJURY ON CKD 3 LEFT HIP FRACTURE S/P ORIF AFIB NOT ON AC DUE TO H/O GI BLEED H/O GI BLEED CHF WITH PRESERVED EF SEVERE PULM HTN HYPOTHYROID PACEMAKER DUE TO COMPLETE AV BLOCK SEVERE TRICUSPID REGURGITATION DISCHARGE MEDICATIONS: PLS SEE BELOW DISCHARGE INSTRUCTIONS: RENAL US. CONTINUE IVFLUIDS X 2LITERS, STRICT I/O , WEIGH DAILY. DAILY MP UNTIL CREATININE RETURNS TO BASELINE HISTORY OF PRESENTING ILLNESS This is an 83-year-old with history of chronic kidney disease (CKD) stage 3 with baseline creatinine 1.2 to 1.3, atrial fibrillation not anticoagulation due to history of GI bleed and usually on aspirin, congestive heart failure with severe pulmonary hypertension, dyslipidemia, hypothyroidism, peptic ulcer disease, reflux, rheumatoid arthritis, GI bleed with hypotensive shock in 10/2018, diabetes with recurrent hyperglycemia, hypothyroidism, mitral regurgitation, severe tricuspid regurgitation, history of complete AV block with pacemaker, essential hypertension, and anemia due to chronic kidney disease, admitted due to a fall with resulting left hip fracture status post ORIF who had hyperkalemia and Spironolactone had been discontinued. HOSPITAL COURSE: Acute kidney injury on stage 3 chronic renal failure, currently with a creatinine of 3.22. The patient's diuretics, Lasix and Spironolactone, have been discontinued. s/p 2 IV fluids with some improvement. on strict ins and outs, daily weights, post void residual every 4hrs. renal us to Rule out obstructive causes. Hyperkalemia, resolved, due to Spironolactone. discontinued spironolactone. Metabolic acidosis, resolved, diuretics have been withheld. Left hip fracture s/p Left hip ORIF status post mechanical fall. The patient is managed with aspirin and subcutaneous heparin due to history of GI bleed in October 2018 managed per orthopedic surgery. Currently on MiraLAX Atrial fibrillation, on metoprolol 100 daily. Rate controlled. No anticoagulation due to recent GI bleed. Hypothyroidism, on levothyroxine. Anemia, on chronic ferrous sulfate. Vitamin D deficiency, on calcium and vitamin D replacement. Dyslipidemia, on Lopid. Type 2 diabetes, on hypoglycemic protocol, insulin sliding scale, consistent carbohydrate diet. History of GI bleed, on Carafate and proton pump inhibitor on Prilosec 40 twice a day. DISCHARGE PHYSICAL EXAMINATION: General: The patient is awake, alert, oriented to person and place, able to converse appropriately, in no respiratory distress or use of respiratory accessory muscles. Dry mucous membranes. Lungs: Clear to auscultation. No wheezing, rales or rhonchi. Heart: S1 and S2. Sinus rhythm. Abdomen: Soft. Obese. Nontender. Nondistended. Postop left hip. Skin color is pink, warm, dry. Extremities: No cyanosis or clubbing. DISCHARGE LABORATORY DATA, IMAGING STUDIES, MICROBIOLOGY:PLS SEE BELOW White count 10, hemoglobin 8.5, hematocrit 27, platelet count 180. Sodium 137, potassium 4.7, chloride 103, bicarbonate 24, BUN 64, creatinine 3.22, glucose 197. TIME SPENT ON DISCHARGE: 30 MIN Vital Signs/I&Os Vital Signs Date Time Temp Pulse Resp B/P (MAP) Pulse Ox O2 Delivery O2 Flow Rate FiO2 04/09/19 06:00 97.5 71 16 119/60 (79) 96 04/06/19 19:25 2.0 04/05/19 20:09 Room Air I&O- Last 24 Hours up to 6 AM 04/09/19 06:00 Intake Total 1130 ml Output Total 550 ml Balance 580 ml Laboratory Data Labs 24H Laboratory Tests 2 04/08/19 11:32: Bedside Glucose (Misc Panel) 163H 04/08/19 17:23: Bedside Glucose (Misc Panel) 144H 04/08/19 19:46: Anion Gap 9, Glomerular Filtration Rate 14.0L, Blood Urea Nitrogen 64H, Creatinine 3.36H, Sodium Level 135L, Potassium Level 4.6, Chloride Level 103, Carbon Dioxide Level 23, Calcium Level 7.8L 04/08/19 20:12: Bedside Glucose (Misc Panel) 154H 04/09/19 06:25: Nucleated Red Blood Cells % (auto) 0.4H, Anion Gap 9, Glomerular Filtration Rate 15.4L, Blood Urea Nitrogen 69H, Creatinine 3.09H, Sodium Level 134L, Potassium Level 4.3, Chloride Level 104, Carbon Dioxide Level 21, Calcium Level 7.7L CBC/BMP Laboratory Tests 04/08/19 19:46 Calcium Level 7.8 L 04/09/19 06:25 Calcium Level 7.7 L, Red Blood Count 2.42 L, Mean Corpuscular Volume 102.9 H, Mean Corpuscular Hemoglobin 32.6, Mean Corpuscular Hemoglobin Concent 31.7 L, Red Cell Distribution Width 14.7 H FSBS Laboratory Tests Test 04/08/19 11:32 04/08/19 17:23 04/08/19 20:12 Range/Units Bedside Glucose (Misc Panel) 163 144 154 83-110 MG/DL Discharge Medications Scheduled Allopurinol (Zyloprim) 300 Mg Tab, 300 MG PO QHS, (Reported) Calcium Carbonate/Vitamin D3 (Calcium 600 + Vit D 400 Softgl) 1 Each Capsule, 1 CAP PO BID, (Reported) Cholecalciferol (Vitamin D3) (Vitamin D3) 1,000 Unit Tablet, 2,000 UNIT PO DAILY, (Reported) Ferrous Sulfate (Ferrous Sulfate) 325 Mg Tab, 325 MG PO BID, (Reported) Gemfibrozil (Gemfibrozil) 600 Mg Tab, 600 MG PO BID, (Reported) Levothyroxine Sodium (Synthroid) 75 Mcg Tab, 37.5 MCG PO DAILY, (Reported) Loratadine (Loratadine) 10 Mg Tab, 10 MG PO DAILY, (Reported) Metoprolol Succinate (Toprol Xl) 50 Mg Tab, 100 MG PO DAILY, (Reported) Omeprazole (Omeprazole) 20 Mg Cap, 20 MG PO BID, (Reported) Sucralfate (Sucralfate) 1 Gm Tab, 1 GM PO ACHS, (Reported) Scheduled PRN Fluticasone Propionate (Flonase Allergy Relief) 50 Mcg/Act Spr, 1 SPRAY NARES DAILY PRN for NASAL CONGESTION, (Reported) Oxycodone HCl/Acetaminophen (Percocet 5-325 mg Tablet) 1 Each Tablet, 1 TAB PO Q4H PRN for PAIN Allergies Coded Allergies: latex (Verified Allergy, Severe, Anaphylaxis, 10/30/18) [place] (Verified Allergy, Unknown, 10/30/18) codeine (Verified Adverse Reaction, Intermediate, Dizziness, Blurred Vision, Headache, Dry Mouth, 10/30/18) LIZ ANDRADE MD Apr 09, 2019 08:10
[2019-04-09] MEDS: HEPARIN SOD (PORCINE) 5000 UNITS/ML VIAL SQ SCH (08:30)
[2019-04-09] MEDS: VITAMIN D 1,000 INTERNATIONAL UNITS TABLET PO SCH (08:30)
[2019-04-09] MEDS: HumaLOG INSULIN (NovoLOG) PER UNIT SC SCH ×2 (08:30→12:36)
[2019-04-09] MEDS: DOCUSATE SODIUM 100 MG CAP PO SCH (08:31)
[2019-04-09] MEDS: OMEPRAZOLE 20 MG CAP PO SCH (08:31)
[2019-04-09] MEDS: ASPIRIN 81 MG ENTERIC TAB PO SCH (08:31)
[2019-04-09] MEDS: LORATADINE 10 MG TAB PO SCH (08:32)
[2019-04-09] MEDS: FERROUS SULFATE 325MG TAB PO SCH (08:32)
[2019-04-09] MEDS: METOPROLOL SUCC (TopROL XL) 100MG *XL* TAB PO SCH (08:32)
[2019-04-09] MEDS: CALCIUM/VITAMIN D 500 MG TAB PO SCH (08:32)
[2019-04-09] MEDS: SUCRALFATE 1 GM TAB PO SCH ×2 (08:32→12:36)
[2019-04-09] MEDS: GEMFIBROZIL 600 MG TAB PO SCH (08:32)
[2019-04-09] MEDS: MIRALAX *UNIT DOSE* 17GM PACKET PO SCH (08:33)
[2019-04-09] MEDS: MAGNESIUM OXIDE 400 MG TAB (MAG-OX) PO SCH (08:33)
[2019-04-09] MEDS: LEVOTHYROXINE 75MCG TABLET (0.075MG) PO SCH (08:35)
[2019-04-09 14:08] VITALS: BP 101/49
--- NOTE | 2019-04-09 15:01 | REP ---
Urinary tract sonography: History: Acute renal failure postop hip. Findings: Scanning at the level of the urinary bladder shows no abnormality. Renal cortical echogenicity is somewhat increased bilaterally. No hydronephrosis is seen on either side. Right kidney measures 10.5 x 4.7 x 5.2 cm. Left renal dimensions are 11.6 x 4.8 x 5.8 cm. Multiple peripheral cortical cysts are noted in both kidneys. The largest on the right is at the mid pole level measuring 1.6 cm in diameter. At the lower pole of the left kidney there is a 4.3 x 3.9 x 3.8 cm cyst. No mass lesion is seen. Impression: Bilateral renal cortical cysts. Increased renal cortical echogenicity pattern consistent with chronic medical renal disease. No hydronephrosis. Electronically Signed by William Ortega MD 04/09/2019 03:36 P
== END 2019-04-09 14:50 | DRG 481 ==
LOC: EDBD 12:57 → M ED 12:57 → M ED INP 17:57 → M MS5PR 20:25
PROVIDERS: ADMIT Family Medicine; ATTEND General Practice
PROC: 0QSC04Z Reposition Left Lower Femur with Internal Fixation Device, Open Approach (ICD-10-PCS; principal; 2019-04-06 08:00)
DX: S72.492A Other fracture of lower end of left femur, initial encounter for closed fracture (principal); N17.9 Acute kidney failure, unspecified; I50.32 Chronic diastolic (congestive) heart failure; I13.0 Hypertensive heart and chronic kidney disease with heart failure and stage 1 through stage 4 chronic kidney disease, or unspecified chronic kidney disease; E87.2 Acidosis; N18.3 Chronic kidney disease, stage 3 (moderate); I48.0 Paroxysmal atrial fibrillation; I08.3 Combined rheumatic disorders of mitral, aortic and tricuspid valves; Z95.0 Presence of cardiac pacemaker; I27.20 Pulmonary hypertension, unspecified; E03.9 Hypothyroidism, unspecified; E78.5 Hyperlipidemia, unspecified; K21.9 Gastro-esophageal reflux disease without esophagitis; M06.9 Rheumatoid arthritis, unspecified; E87.5 Hyperkalemia; E11.649 Type 2 diabetes mellitus with hypoglycemia without coma; D63.1 Anemia in chronic kidney disease; E55.9 Vitamin D deficiency, unspecified; Z79.899 Other long term (current) drug therapy; Z88.5 Allergy status to narcotic agent; Z91.040 Latex allergy status; W18.30XA Fall on same level, unspecified, initial encounter; Y92.009 Unspecified place in unspecified non-institutional (private) residence as the place of occurrence of the external cause; K27.9 Peptic ulcer, site unspecified, unspecified as acute or chronic, without hemorrhage or perforation; Z87.891 Personal history of nicotine dependence

== ENCOUNTER 2019-04-09 12:16 | Inpatient (IN) | payer MEDICARE, OTHER ==
[~2019-04-09] VITALS: Ht 149.9 cm; Wt 98.2 kg
[2019-04-09] MEDS: ASPIRIN 81 MG ENTERIC TAB PO SCH (09:00)
[~2019-04-09 12:16] MED LIST changes: -GLIM2TAB PO; +GLIM2TAB29 PO; +GLIM2TAB4 PO; +OMEP-358 PO; +OMEP1CAP73 PO; -OMEP20CA4 PO; -OMEP20TA PO; -OMEP40CA2 PO; +OMEP40CA97 PO; +PERC5TAB12 PO; +POTA20TA6 PO; +VITATAB26 PO
[2019-04-09 15:22] VITALS: BP 104/53
--- NOTE | 2019-04-09 16:56 | HPEPDOC ---
Erecting Engineer Note DATE OF ADMISSION: 04/09/19 SOURCE OF ADMISSION INFORMATION: [facility] records and patient CHIEF COMPLAINT: distal femur, periprosthetic fracture HISTORY OF PRESENT ILLNESS: 83F pmh Afib, off AC secondary to GI bleed, CHF with severe pulmonary HTN, HLD, peptic ulcer disease, CKD, RA, DM, Hypothyroidism, Complete A-V block with PM, HTN, anemia of chronic disease who fell at home while walking down stairs and presented to [facility] ED on complaining of left leg pain. CT showed, Mildly displaced oblique fracture through the distal femoral metadiaphysis with soft tissue injuries and joint effusion for which ortho was consulted. She had hyperkalemia which was treated with IV Lasix in preparation for surgery. On 04/06/19 patient underwent an open reduction, internal fixation (ORIF) with retrograde intramedullary nailing of a left periarticular distal femur fracture above a total knee replacement. She was placed in a knee extension brace and made NWB. She developed TYLER on CK for which she received continuous IV fluids, was evaluated by therapy and found to be well below her prior level of function and deemed medically appropriate for discharge to ARU on 04/09/19. REVIEW OF SYSTEMS: The following is a completed review of systems and has been reviewed. Review of systems otherwise unremarkable. PAIN: Patient self reports left leg pain EYES: No recent vision changes EARS, NOSE, & THROAT: No throat pain, or dysphagia, or rhinorrhea CARDIOVASCULAR: Denies chest pain or palpitations PULMONARY: Denies shortness of breath GASTROINTESTINAL:+constipation GENITOURINARY: denies dysuria MUSCULOSKELETAL: left distal femur fracture NEUROLOGICAL:no seizure activity/focal tremor HEMATOLOGICAL:+anemia SKIN: left knee incision, sacral rash PSYCHIATRIC: Unremarkable All other review of systems found to be negative. PAST MEDICAL HISTORY: as per HPI PAST SURGICAL HISTORY: PM placement, appendectomy, Cholecystectomy, knee replacement, DHIRAJ, right breast biopsy ALLERGIES: Please see below. MEDICATIONS: Please see below. FAMILY HISTORY: Cardiac SOCIAL HISTORY: Former smoker, no ETOH, or illicit drugs DIET: renal PHYSICAL EXAMINATION: VITAL SIGNS: Please see below. GENERAL: Pleasant and cooperative. No acute distress. HEENT: PERRL. Extraocular movements intact. Clear conjunctiva CARDIOVASCULAR: Regular rate and rhythm. No murmurs, rubs, or gallops LUNGS: Clear to auscultation bilaterally. No wheezes. No rhonchi ABDOMEN: Soft, nontender, nondistended. Positive bowel sounds. Normal active bowel sounds NEUROLOGICAL: Alert and oriented times three. Cranial nerves II through XII grossly intact. Sensation grossly intact in all 4 extremities EXTREMITIES: 5\5 strength bilateral upper extremities. 5\5 strength right lower extremity. 4/5 strength in left lowerankle DF and EHL and PF (limited exam). SKIN: left knee incision not examined, sacrum with mild erythema LABORATORY DATA: Please see below. IMAGING:Imaging documentation personally reviewed by record FUNCTIONAL STATUS: Premorbid: Independent with all activities of daily life as well as mobility On Admission: Min-Max Assist for functional transfers, Max assist for bed mobility, total assist for dressing GOALS: Mod-I from a wheelchair level, Mod-I ambulation with RW household distances, Mod-I dressing, toileting, supervision for bathing, medical optimization, assess for DMEs. ASSESSMENT:83-year-old F with past medical history of CHF, pul HTN, CKD who presents status post fall with gurjit-prosthetic distal femur fracture PLAN: 1. PT- strengthen, maintain ROM and stretch RLE, work on balance and household ambulation with RW while NWB for LLE OT- stengthen, stretch, maintain ROM bilat UE, work on ADL management 2. Ortho: left distal femur gurjit-prosthetic fracture, NWB LLE, extension brace to be worn at all times, ortho consulted 2. Neuro: avoid delirogenic meds 3. Cardiac: pmh Afib with recent GI bleed off AC with dual chamber PM, spironolactone on hold due to recent Hyperkalemia, c/u beta-qiana, currently off LAsix while receive gently hydration for TYLER on CKD- medicine consulted to assist with management -HLD- c/u Lopid 4. Reps: pmh pulm HTN, encourage incentive spirometry, monitor for infection 5. Endo: Hypothyroid- c/u synthroid 6. GI: recent GI bleed, c/u Prilosec 40 BID and sucralfate with meals, optimize bowel meds 7. Renal: TYLER on CKD, c/u NS IVF hydration per d/c recs, will consider renal consult if Boiler Control Room Operator does not improve 8. DVT ppx: hepain and TEDs to RLE 9. Pain: tylenol anmd oxycodone prn, ice 10. Skin: zinc to sacrum 11. Dispo: tbd POST ADMISSION PHYSICIAN EVALUATION: Medical and functional status: Description of medical status, medical assessment: As above. Rehabilitation diagnosis and current and prior cold morbid medical conditions as above. Risk of complications and plans to mitigate them as above. Description of functional status current status is as above. Prior status as above. Status compared to preadmission: There are no clinically significant differences between the patient's current status and the information described on the preadmission screening document. Treatment plan anticipated: Treatment plan is as described above. Required disciplines including physical therapy, occupational therapy, others as noted above. Intensity of services: 3 hours a day, 6 days a week. Special considerations: There are no specific special or safety considerations that would likely preclude immediate implementation of an intensive rehabilitation program or subsequently influence the plan of care. ATTESTATION: Considering all the information above, it is my best judgment that this patient requires intensive rehabilitation therapy as described above and an inpatient hospital environment due to the complexity of nursing, medical, and rehabilitation needs required by the patient. Furthermore, this patient can reasonably be expected to participate in an benefit from an inpatient rehabilitation stay with an interdisciplinary team approach to the delivery of rehabilitation care under the direction and supervision of rehabilitation physician. PROGNOSIS: good ESTIMATED LENGTH OF STAY:18-21 days. PROJECTED DISCHARGE DESTINATION: Home with family support and any durable medical equipment required to increase functional safety and mobility. TIME SPENT COUNSELING AND COORDINATING INITIAL CARE: Greater than 70 minutes. Vital Signs Vital Sign - Last 24 Hours 04/09/19 15:22 Temp 98.7 Pulse 70 Resp 18 B/P (MAP) 104/53 (70) Pulse Ox 98 Home Medications Scheduled Allopurinol (Zyloprim) 300 Mg Tab, 300 MG PO QHS, (Reported) Calcium Carbonate/Vitamin D3 (Calcium 600 + Vit D 400 Softgl) 1 Each Capsule, 1 CAP PO BID, (Reported) Cholecalciferol (Vitamin D3) (Vitamin D3) 1,000 Unit Tablet, 2,000 UNIT PO DAILY, (Reported) Ferrous Sulfate (Ferrous Sulfate) 325 Mg Tab, 325 MG PO BID, (Reported) Gemfibrozil (Gemfibrozil) 600 Mg Tab, 600 MG PO BID, (Reported) Levothyroxine Sodium (Synthroid) 75 Mcg Tab, 37.5 MCG PO DAILY, (Reported) Loratadine (Loratadine) 10 Mg Tab, 10 MG PO DAILY, (Reported) Metoprolol Succinate (Toprol Xl) 50 Mg Tab, 100 MG PO DAILY, (Reported) Omeprazole (Omeprazole) 20 Mg Cap, 20 MG PO BID, (Reported) Sucralfate (Sucralfate) 1 Gm Tab, 1 GM PO ACHS, (Reported) Scheduled PRN Fluticasone Propionate (Flonase Allergy Relief) 50 Mcg/Act Spr, 1 SPRAY NARES DAILY PRN for NASAL CONGESTION, (Reported) Oxycodone HCl/Acetaminophen (Percocet 5-325 mg Tablet) 1 Each Tablet, 1 TAB PO Q4H PRN for PAIN Allergies Coded Allergies: latex (Verified Allergy, Severe, Anaphylaxis, 10/30/18) [place] (Verified Allergy, Unknown, 10/30/18) codeine (Verified Adverse Reaction, Intermediate, Dizziness, Blurred Vision, Headache, Dry Mouth, 10/30/18) A-FIB/CHADSVASC A-FIB History Current/History of A-Fib/PAF?: Yes Current PO Anticoag Therapy: No UBALDO GORMAN MD Apr 09, 2019 16:56
[2019-04-09] MEDS ORDERED: MOM 30ML SUSPENSION UDC PO PRN (17:00)
[2019-04-09] MEDS ORDERED: BISACODYL 10 MG SUPP PR PRN (17:00)
[2019-04-09] MEDS ORDERED: IPRATROPIUM 0.5MG/ALBUTEROL 2.5MG INH SOL UD 3ML (DUONEB)(J7620) NEB PRN (17:00)
[2019-04-09] MEDS ORDERED: oxyCODONE 5MG TAB PO PRN (17:00)
[2019-04-09] MEDS ORDERED: NS 1,000 ML IV ONE (17:00)
[2019-04-09] MEDS ORDERED: GLUCAGON FOR INJ 1 MG VIAL (J1610) SC PRN (17:30)
[2019-04-09] MEDS ORDERED: GLUCOSE 4 GM CHEW TABLET PO PRN (17:30)
[2019-04-09] MEDS ORDERED: DEXTROSE 50% 50 ML SYRINGE IV PRN (17:30)
[2019-04-09] MEDS: gemfibroziL 600 MG TAB PO SCH (17:30)
[2019-04-09] MEDS: SUCRALFATE 1 GM TAB PO SCH ×2 (17:58→20:10)
[2019-04-09] MEDS: HumaLOG INSULIN (NovoLOG) PER UNIT SC SCH ×2 (17:59→20:11)
[2019-04-09 20:00] VITALS: BP 113/53
[2019-04-09] MEDS: OYSTER SHELL CALCIUM 500 MG TAB PO SCH (20:09)
[2019-04-09] MEDS: FERROUS GLUCONATE 324 MG TAB PO SCH (20:09)
[2019-04-09] MEDS: HEPARIN SOD (PORCINE) 5000 UNITS/ML VIAL SC SCH (20:09)
[2019-04-09] MEDS: DOCUSATE SODIUM 100 MG CAP PO SCH (20:10)
[2019-04-09] MEDS: SENNA 8.6 MG TAB (SENOKOT) PO SCH (20:10)
[2019-04-09] MEDS: allopurinoL 300 MG TAB PO SCH (20:10)
[2019-04-09] MEDS: MAGNESIUM OXIDE 400 MG TAB (MAG-OX) PO SCH (20:10)
[2019-04-09] MEDS: OMEPRAZOLE 20 MG CAP PO SCH (20:10)
[2019-04-09] MEDS: ACETAMINOPHEN 500 MG TAB PO SCH (20:11)
[2019-04-09] MEDS ORDERED: PILL CUTTER 1 EACH XX PRN (20:45)
[2019-04-10 04:00] VITALS: BP 125/57
[2019-04-10] MEDS: LEVOTHYROXINE 37.5MCG PER 1/2TAB (0.0375MG) PO SCH (06:07)
[2019-04-10 07:14] LABS: BASO % 0.5 % (0.0-1.0); EOS # 0.4 10^3/uL (0.0-0.5); EOS % 5.8 % (0.0-3.0); HEMATOCRIT 24.8 % (36.0-47.0); LYMPH # 0.8 10^3/uL (1.5-5.0); LYMPH % 12.5 % (24.0-44.0); MEAN CORPUSCULAR HEMOGLOBIN 33.2 pg (27.0-33.0); MEAN CORPUSCULAR HGB CONC 32.3 g/dl (32.0-36.5); MEAN CORPUSCULAR VOLUME 102.9 fl (80.0-96.0); MONO # 0.7 10^3/uL (0.0-0.8); MONO % 10.8 % (0.0-5.0); NEUTROPHILS # 4.2 10^3/uL (1.5-8.5); NEUTROPHILS % 69.2 % (36.0-66.0); PLATELET COUNT, AUTOMATED 203 10^3/uL (150-450); RED BLOOD COUNT 2.41 10^6/uL (4.00-5.40)
[2019-04-10 07:47] LABS: ALBUMIN 2.6 GM/DL (3.2-5.2); ALT/SGPT < 6 U/L (12-78); BILIRUBIN,TOTAL 0.8 MG/DL (0.2-1.0); BLOOD UREA NITROGEN 67 MG/DL (7-18); CALCIUM LEVEL 7.9 MG/DL (8.8-10.2); CARBON DIOXIDE LEVEL 21 MEQ/L (21-32); CHLORIDE LEVEL 104 MEQ/L (98-107); CREATININE FOR GFR 2.68 MG/DL (0.55-1.30); GLOMERULAR FILTRATION RATE 18.2 (>32); GLUCOSE, FASTING 160 MG/DL (70-100); POTASSIUM SERUM 4.2 MEQ/L (3.5-5.1); SODIUM LEVEL 136 MEQ/L (136-145); TOTAL PROTEIN 6.2 GM/DL (6.4-8.2)
[2019-04-10] MEDS: HumaLOG INSULIN (NovoLOG) PER UNIT SC SCH ×4 (08:45→20:22)
[2019-04-10] MEDS: OMEPRAZOLE 20 MG CAP PO SCH ×2 (08:46→20:21)
[2019-04-10] MEDS: HEPARIN SOD (PORCINE) 5000 UNITS/ML VIAL SC SCH ×2 (08:46→20:20)
[2019-04-10] MEDS: VITAMIN D 1,000 INTERNATIONAL UNITS TABLET PO SCH (08:47)
[2019-04-10] MEDS: ASPIRIN 81 MG ENTERIC TAB PO SCH (08:47)
[2019-04-10] MEDS: OYSTER SHELL CALCIUM 500 MG TAB PO SCH ×2 (08:47→20:22)
[2019-04-10] MEDS: ACETAMINOPHEN 500 MG TAB PO SCH ×3 (08:47→20:21)
[2019-04-10] MEDS: FERROUS GLUCONATE 324 MG TAB PO SCH ×2 (08:48→20:22)
[2019-04-10] MEDS: LORATADINE 10 MG TAB PO SCH (08:48)
[2019-04-10] MEDS: SUCRALFATE 1 GM TAB PO SCH ×4 (08:48→20:21)
[2019-04-10] MEDS: gemfibroziL 600 MG TAB PO SCH ×2 (08:48→17:10)
[2019-04-10] MEDS: DOCUSATE SODIUM 100 MG CAP PO SCH ×2 (08:48→20:21)
[2019-04-10] MEDS: MAGNESIUM OXIDE 400 MG TAB (MAG-OX) PO SCH ×2 (08:48→20:22)
[2019-04-10] MEDS: METOPROLOL SUCC (TopROL XL) 100MG *XL* TAB PO SCH (08:49)
[2019-04-10] MEDS: FLUTICASONE PROP 0.05% NASAL SPRAY 16 GM (FLONASE) NARES SCH (08:49)
[2019-04-10] MEDS ORDERED: NS 1,000 ML IV ONE (10:00)
[2019-04-10 13:05] LABS: PERCENT SATURATION 14.9 % (13.2-45.0)
[2019-04-10 14:00] VITALS: BP 120/57
[2019-04-10] MEDS: allopurinoL 300 MG TAB PO SCH (20:22)
[2019-04-10] MEDS: SENNA 8.6 MG TAB (SENOKOT) PO SCH (20:22)
[2019-04-10] MEDS: BOUDREAUX'S BUTT PASTE TOP SCH (21:00)
[2019-04-10 21:25] VITALS: BP 121/60
--- NOTE | 2019-04-10 22:10 | CR ---
DATE OF CONSULTATION: 04/10/2019 REQUESTING PHYSICIAN: Dr. Irene Miller CONSULTING PHYSICIAN: Dr. Ana Burton. REASON FOR CONSULTATION: Management of acute kidney injury superimposed on chronic kidney disease. CHIEF COMPLAINT: The patient was admitted after surgery for a distal femur fracture. HISTORY OF PRESENT ILLNESS: Juana Doty is an 83-year-old female with a past medical history of chronic kidney disease stage III with a best baseline creatinine of around 1.2 as of October 2018. She fell at home while walking down stairs, and she came to the emergency room on April 05, 2019. CT scan showed distal femur metadiaphysis fracture. The patient underwent an open reduction internal fixation with intramedullary nailing of the left periarticular distal femur above a total knee replacement. She is wearing a knee extension brace. She developed acute kidney injury during the process. She presented with a creatinine of around 1.5 but renal function continues to be worse, creatinine is up to 2.6 now. Medical service was seeing the patient, and the patient was getting IV fluid hydration. The patient was later on transferred to the rehabilitation service on April 09, 2019 and rehab physician got nephrology service involved for further help in the management of acute kidney injury. I saw and evaluated the patient today morning at the bedside. She was just coming back after getting physical therapy done. The patient reported that she was still feeling very thirsty. She was given 1 liter normal saline bolus today morning as well. The patient also reported that she was having difficulty with urination, and she feels like she is retaining the urine. PAST MEDICAL HISTORY: Past medical history of chronic kidney disease stage III, baseline creatinine of around 1.2, congestive heart failure, history of atrial fibrillation - not anticoagulated because of gastrointestinal (GI) bleed, pulmonary hypertension, hyperlipidemia, peptic ulcer disease, rheumatoid arthritis, diabetes mellitus type 2, hypothyroidism, history of pacemaker secondary to complete atrioventricular (AV) block. PAST SURGICAL HISTORY: Status post pacemaker placement, status post appendectomy, status post cholecystectomy, history of total abdominal hysterectomy, right breast biopsy and recent left intramedullary nail in the left femur fracture. ALLERGIES: The patient is allergic to [place], CODEINE, and LATEX. FAMILY HISTORY: No significant family history of end-stage renal disease requiring hemodialysis. SOCIAL HISTORY: The patient is a former smoker. She denies any smoking at this time, illicit drug abuse or alcohol abuse. REVIEW OF SYSTEMS: Constitutional: Patient denies any fevers or chills. Eyes: She denies any blurry vision, double vision. ENT: She denies any dysphagia or odynpohagia. She does report a dry mouth. Cardiovascular: She denies any chest pain or palpitations. Respiratory: She denies any shortness of breath or cough. Gastrointestinal (GI): She denies any nausea, vomiting or diarrhea. Genitourinary: She reports difficulty with urination. Musculoskeletal: She reports pain in the left knee and recent fracture. Central nervous system (INSTRUCTIONAL TECHNOLOGY DIRECTOR): She denies any strokes or seizures. Skin: She denies any rashes or ulcers. Endocrine: She reports diabetes mellitus type 2. Hematology/Oncology: She denies any easy bleeding or bruising. All other review of systems is negative. PHYSICAL EXAMINATION: General: The patient is awake, alert, oriented times three, sitting in the wheelchair. Vital signs: Temperature is 97.8 degrees Fahrenheit, blood pressure 120/57, pulse is 70, respiratory rate of 16, saturating 98% on room air. Head and neck exam: Extraocular muscles intact. Pupils equally round and reactive to light. Mucous membranes are moist. Neck is supple. There is no jugular venous distention (JVD). Cardiovascular: S1, S2, no murmur, rub or gallop. A left-sided pacemaker is noted. Respiratory: Chest is clear to auscultation bilaterally. Bilateral equal air entry. No rales or rhonchi. Abdomen: Soft, obese, positive bowel sounds. Genitourinary: I did the bedside bladder scan myself. There was more than 300 of residual urine. Musculoskeletal: The patient has a left-sided knee brace, decreased range of movement of the left leg. INSTRUCTIONAL TECHNOLOGY DIRECTOR: No focal deficit. Power is 5/5 in bilateral upper extremities. LAB REVIEW: CBC showed a WBC of 6, hemoglobin 8, platelets are 203. BMP showed sodium 136, potassium 4.2, chloride 104, bicarbonate 21, BUN 67, creatinine is 2.6, calcium 7.9, iron is 37, TIBC 248, transferrin saturation 14.9, ferritin is 86, albumin is 2.6, aluminum level is pending. Microbiology: No cultures are reported. IMAGING STUDIES: Renal ultrasound done yesterday showed bilateral renal cortical cysts, increased renal cortical echogenicity pattern consistent with chronic medical renal disease. There was no hydronephrosis. CURRENT INPATIENT MEDICATIONS: The patient's medications include normal saline one liter bolus that was given today morning, Tylenol as needed, albuterol as needed, allopurinol 300 mg by mouth daily, aspirin 81 mg by mouth daily, Colace 100 mg by mouth twice a day, iron tablet twice a day, insulin sliding scale, levothyroxine 37.5 mcg by mouth daily, Claritin 10 mg by mouth daily, magnesium oxide 400 mg by mouth twice a day, metoprolol XL 100 mg by mouth daily, Milk of Magnesia, omeprazole 40 mg by mouth twice a day, oxycodone as needed, oyster shell calcium 500 mg by mouth twice a day, sucralfate 1 gram by mouth three times a day with meals, vitamin D 2000 units by mouth daily and zinc oxide ointment. ASSESSMENT: 83-year-old female status post left femur surgery, now developed acute kidney injury superimposed on chronic kidney disease stage III. PLAN: 1. Acute kidney injury. The patient has a baseline creatinine of around 1.2. Acute kidney injury is most likely secondary to a combination of dehydration and obstructive uropathy. The patient was retaining urine as per bladder scan. I ordered placement of Gifford catheter. Continue to monitor intake and output. Continue current medications. No need of IV fluid hydration. Continue to encourage oral hydration at this time. 2. Chronic gout secondary to chronic kidney disease. Continue current dose of allopurinol 300 mg by mouth daily. 3. Iron-deficiency anemia. The patient recently had surgery as well. I have started the patient on Venofer 200 mg IV daily for a total of three doses. 4. Hyperlipidemia. I am decreasing the gemfibrozil dose to 600 mg by mouth in the morning and 300 mg by mouth in the evening because of her drop in the glomerular filtration rate (GFR). 5. Diabetes mellitus, type 2. Continue insulin sliding scale. Avoid use of metformin at this time. 6. Hypertension. Continue current dose of metoprolol XL 100 mg by mouth daily. Avoid use of angiotensin-converting enzyme (DORAIN) inhibitors or angiotensin receptor blockers. 7. Gastroesophageal reflux. Continue current dose of Carafate with meals. I am going to check the aluminum level because of risk of aluminum toxicity and chronic kidney disease. 8. Cor pulmonale. The patient has severe pulmonary hypertension with dilated right heart chambers as per previous echocardiogram. No signs of fluid overload at this time. The patient is actually being hydrated because of volume depletion. No need of diuretics at this point. Thank you for involving me in the care of this patient. I shall be happy to follow the patient along with you tomorrow morning.
[2019-04-11] MEDS: LEVOTHYROXINE 37.5MCG PER 1/2TAB (0.0375MG) PO SCH (05:39)
[2019-04-11 05:53] VITALS: BP 141/65
[2019-04-11 07:01] LABS: BASO % 0.8 % (0.0-1.0); EOS # 0.3 10^3/uL (0.0-0.5); EOS % 6.7 % (0.0-3.0); HEMATOCRIT 24.2 % (36.0-47.0); HEMOGLOBIN 7.6 g/dl (12.0-15.5); LYMPH # 0.7 10^3/uL (1.5-5.0); LYMPH % 13.8 % (24.0-44.0); MEAN CORPUSCULAR HEMOGLOBIN 32.5 pg (27.0-33.0); MEAN CORPUSCULAR HGB CONC 31.4 g/dl (32.0-36.5); MEAN CORPUSCULAR VOLUME 103.4 fl (80.0-96.0); MONO # 0.6 10^3/uL (0.0-0.8); NEUTROPHILS # 3.3 10^3/uL (1.5-8.5); NEUTROPHILS % 65.5 % (36.0-66.0); PLATELET COUNT, AUTOMATED 225 10^3/uL (150-450); RED BLOOD COUNT 2.34 10^6/uL (4.00-5.40); WHITE BLOOD COUNT 5.1 10^3/uL (4.0-10.0)
[2019-04-11 07:18] LABS: CREATININE FOR GFR 2.15 MG/DL (0.55-1.30); GLOMERULAR FILTRATION RATE 23.4 (>32); POTASSIUM SERUM 4.1 MEQ/L (3.5-5.1)
[2019-04-11] MEDS: HumaLOG INSULIN (NovoLOG) PER UNIT SC SCH ×4 (07:30→20:26)
[2019-04-11] MEDS: BOUDREAUX'S BUTT PASTE TOP SCH (09:00)
[2019-04-11] MEDS: FLUTICASONE PROP 0.05% NASAL SPRAY 16 GM (FLONASE) NARES SCH (09:00)
[2019-04-11] MEDS: HEPARIN SOD (PORCINE) 5000 UNITS/ML VIAL SC SCH ×2 (10:34→20:26)
[2019-04-11] MEDS: LORATADINE 10 MG TAB PO SCH (10:35)
[2019-04-11] MEDS: DOCUSATE SODIUM 100 MG CAP PO SCH ×2 (10:35→20:25)
[2019-04-11] MEDS: SUCRALFATE 1 GM TAB PO SCH ×4 (10:35→20:25)
[2019-04-11] MEDS: OYSTER SHELL CALCIUM 500 MG TAB PO SCH ×2 (10:35→20:25)
[2019-04-11] MEDS: VITAMIN D 1,000 INTERNATIONAL UNITS TABLET PO SCH (10:35)
[2019-04-11] MEDS: ASPIRIN 81 MG ENTERIC TAB PO SCH (10:36)
[2019-04-11] MEDS: MAGNESIUM OXIDE 400 MG TAB (MAG-OX) PO SCH ×2 (10:36→20:25)
[2019-04-11] MEDS: gemfibroziL 600 MG TAB PO SCH ×2 (10:36→17:32)
[2019-04-11] MEDS: METOPROLOL SUCC (TopROL XL) 100MG *XL* TAB PO SCH (10:36)
[2019-04-11] MEDS: IRON SUCROSE 200 MG in NS 100 ML IV SCH (10:37)
[2019-04-11] MEDS: FERROUS GLUCONATE 324 MG TAB PO SCH ×2 (10:37→20:25)
[2019-04-11] MEDS: ACETAMINOPHEN 500 MG TAB PO SCH ×3 (10:37→20:26)
[2019-04-11] MEDS: OMEPRAZOLE 20 MG CAP PO SCH ×2 (10:37→20:25)
[2019-04-11] MEDS ORDERED: LACTULOSE 20 GM/30 ML SYRUP UD PO ONE (12:00)
--- NOTE | 2019-04-11 12:01 | IPNPDOC ---
PM&R Progress Note DATE OF SERVICE: Apr 10, 2019 Telecommunications Equipment Installer Progress Note Subjective: Patient seen in her room working on standing, stating she does not have too much pain, but still needs to have a bowel movement. She denies worsening shortness of breath since receiving IV fluids. REVIEW OF SYSTEMS: The following is a completed review of systems and has been reviewed. Review of systems otherwise unremarkable. PAIN: Patient self reports left leg pain EYES: No recent vision changes EARS, NOSE, & THROAT: No throat pain, or dysphagia, or rhinorrhea CARDIOVASCULAR: Denies chest pain or palpitations PULMONARY: Denies shortness of breath GASTROINTESTINAL:+constipation GENITOURINARY: denies dysuria MUSCULOSKELETAL: left distal femur fracture NEUROLOGICAL:no seizure activity/focal tremor HEMATOLOGICAL:+anemia SKIN: left knee incision, sacral rash PSYCHIATRIC: Unremarkable All other review of systems found to be negative. PHYSICAL EXAMINATION: VITAL SIGNS: Please see below. GENERAL: Pleasant and cooperative. No acute distress. HEENT: PERRL. Extraocular movements intact. Clear conjunctiva CARDIOVASCULAR: Regular rate and rhythm. No murmurs, rubs, or gallops LUNGS: Clear to auscultation bilaterally. No wheezes. No rhonchi ABDOMEN: Soft, nontender, nondistended. Positive bowel sounds. Normal active bowel sounds NEUROLOGICAL: Alert and oriented times three. Cranial nerves II through XII grossly intact. Sensation grossly intact in all 4 extremities EXTREMITIES: 5\5 strength bilateral upper extremities. 5\5 strength right lower extremity. 4/5 strength in left lowerankle DF and EHL and PF (limited exam). SKIN: left knee incision not examined, sacrum with mild erythema ASSESSMENT:83-year-old F with past medical history of CHF, pul HTN, CKD who presents status post fall with gurjit-prosthetic distal femur fracture PLAN: 1. PT- strengthen, maintain ROM and stretch RLE, work on balance and household ambulation with RW while NWB for LLE OT- stengthen, stretch, maintain ROM bilat UE, work on ADL management 2. Ortho: left distal femur gurjit-prosthetic fracture, NWB LLE, extension brace to be worn at all times, ortho consulted 2. Neuro: avoid delirogenic meds 3. Cardiac: pmh Afib with recent GI bleed off AC with dual chamber PM, spironolactone on hold due to recent Hyperkalemia, c/u beta-qiana, currently off LAsix while receive gently hydration for TYLER on CKD- medicine consulted to assist with management -HLD- c/u Lopid at lower renal dosing 4. Reps: pmh pulm HTN, encourage incentive spirometry, monitor for infection 5. Endo: Hypothyroid- c/u synthroid 6. GI: recent GI bleed, c/u Prilosec 40 BID and sucralfate with meals, optimize bowel meds 7. Renal: TYLER on CKD, c/u NS IVF hydration per d/c recs, renal consulted, recs appreciated- Gifford placed -US 04/09/19 without hydronephrosis 8. DVT ppx: hepain and TEDs to RLE 9. Pain: Tylenol and oxycodone prn, ice 10. Skin: zinc to sacrum 11. Dispo: tbd Allergies Coded Allergies: latex (Verified Allergy, Severe, Anaphylaxis, 10/30/18) [place] (Verified Allergy, Unknown, 10/30/18) codeine (Verified Adverse Reaction, Intermediate, Dizziness, Blurred Vision, Headache, Dry Mouth, 10/30/18) Vital Signs Vital Signs Date Time Temp Pulse Resp B/P (MAP) Pulse Ox O2 Delivery O2 Flow Rate FiO2 04/11/19 10:36 71 141/65 04/11/19 05:53 97.1 18 96 Laboratory Data CBC/BMP Laboratory Tests 04/11/19 06:18 Red Blood Count 2.34 L, Mean Corpuscular Volume 103.4 H, Mean Corpuscular Hemoglobin 32.5, Mean Corpuscular Hemoglobin Concent 31.4 L, Red Cell Distribution Width 14.9 H, Neutrophils (%) (Auto) 65.5, Lymphocytes (%) (Auto) 13.8 L, Monocytes (%) (Auto) 11.0 H, Eosinophils (%) (Auto) 6.7 H, Basophils (%) (Auto) 0.8, Neutrophils # (Auto) 3.3, Lymphocytes # (Auto) 0.7 L, Monocytes # (Auto) 0.6, Eosinophils # (Auto) 0.3, Basophils # (Auto) 0.0, Calcium Level 8.0 L Labs 24H Laboratory Tests 2 04/10/19 12:11: Iron Level 37L, Total Iron Binding Capacity 248L, Transferrin % Saturation 14.9, Ferritin 86 9/5/19 16:55: Bedside Glucose (Misc Panel) 167H 04/10/19 20:10: Bedside Glucose (Misc Panel) 134H 04/11/19 06:13: Bedside Glucose (Misc Panel) 158H 04/11/19 06:18: Immature Granulocyte % (Auto) 2.2, White Blood Count 5.1, Red Blood Count 2.34L, Hemoglobin 7.6L, Hematocrit 24.2L, Mean Corpuscular Volume 103.4H, Mean Corpuscular Hemoglobin 32.5, Mean Corpuscular Hemoglobin Concent 31.4L, Red Cell Distribution Width 14.9H, Platelet Count 225, Neutrophils (%) (Auto) 65.5, Lymphocytes (%) (Auto) 13.8L, Monocytes (%) (Auto) 11.0H, Eosinophils (%) (Auto) 6.7H, Basophils (%) (Auto) 0.8, Neutrophils # (Auto) 3.3, Lymphocytes # (Auto) 0.7L, Monocytes # (Auto) 0.6, Eosinophils # (Auto) 0.3, Basophils # (Auto) 0.0, Nucleated Red Blood Cells % (auto) 1.6H, Anion Gap 10, Glomerular Filtration Rate 23.4L, Blood Urea Nitrogen 66H, Creatinine 2.15H, Sodium Level 136, Potassium Level 4.1, Chloride Level 106, Carbon Dioxide Level 20L, Calcium Level 8.0L 04/11/19 11:48: Bedside Glucose (Misc Panel) 167H Current Medications Current Medications Current Medications Medications (Trade) Dose Ordered Sig/Kj Route PRN Reason Start Time Stop Time Status Last Admin Dose Admin Acetaminophen (Tylenol Tab) 1,000 mg TID PO 04/09/19 21:00 04/11/19 10:37 Albuterol/ Ipratropium (Duoneb (Ipr 0.5mg/Alb 2.5mg)) 3 ml Q4HP PRN NEB SOB/WHEEZING 04/09/19 17:00 Allopurinol (Zyloprim) 300 mg QHS PO 04/09/19 21:00 04/10/19 20:22 Aspirin (Ecotrin) 81 mg DAILY PO 04/09/19 09:00 04/11/19 10:36 Bisacodyl (Dulcolax Suppository) 10 mg DAILYPRN PRN [place] CONSTIPATION 04/09/19 17:00 Calcium Carbonate (Oscal) 500 mg BID PO 04/09/19 21:00 04/11/19 10:35 Dextrose (Dextrose 50%) 25 ml ASDIRECTED PRN IV SEE LABEL COMMENTS 04/09/19 17:30 Docusate Sodium (Colace) 100 mg BID PO 04/09/19 21:00 04/11/19 10:35 Ferrous Gluconate (Fergon) 324 mg BID PO 04/09/19 21:00 04/11/19 10:37 Fluticasone Propionate (Flonase 0.05% Nasal [place]) 2 spray DAILY NARES 04/10/19 09:00 04/11/19 09:00 Gemfibrozil (Lopid) 300 mg DAILY@1730 PO 04/10/19 17:30 04/10/19 17:10 Gemfibrozil (Lopid) 600 mg BID@0730,1730 PO 04/09/19 17:30 04/10/19 11:57 DC 04/10/19 08:48 Gemfibrozil (Lopid) 600 mg DAILY@0730 PO 04/11/19 07:30 04/11/19 10:36 Glucagon (Glucagon) 1 mg ASDIRECTED PRN SC SEE LABEL COMMENTS 04/09/19 17:30 Glucose (Glucose) 16 GM ASDIRECTED PRN PO SEE LABEL COMMENTS 04/09/19 17:30 Heparin Sodium (Porcine) (Heparin) 5,000 units Q12H SC 04/09/19 21:00 04/11/19 10:34 Home Med (Med Rec Complete!) ASDIRECTED XX 04/09/19 15:30 04/09/19 15:30 DC Insulin Human Lispro (HumaLOG INSULIN) SEE PROTOCOL TABLE AC SC 04/09/19 17:30 04/11/19 07:30 Insulin Human Lispro (HumaLOG INSULIN) SEE PROTOCOL TABLE QHS SC 04/09/19 21:00 Iron 200 mg/ Sodium Chloride 110 ml @ 110 mls/hr DAILY IV 04/11/19 09:00 04/14/19 08:59 04/11/19 10:37 Levothyroxine Sodium (Synthroid) 37.5 mcg DAILY@06 PO 04/10/19 06:00 04/11/19 05:39 Loratadine (Claritin) 10 mg DAILY PO 04/10/19 09:00 04/11/19 10:35 Magnesium Hydroxide (Milk Of Magnesia) 30 ml DAILYPRN PRN PO CONSTIPATION 04/09/19 17:00 Magnesium Oxide (Mag-Ox) 400 mg BID PO 04/09/19 21:00 04/11/19 10:36 Metoprolol Succinate (TopROL XL) 100 mg DAILY PO 04/10/19 09:00 04/11/19 10:36 Omeprazole (PriLOSEC) 40 mg BID PO 04/09/19 21:00 04/11/19 10:37 Oxycodone HCl (Roxicodone, Oxyir) 5 mg Q4HP PRN PO PAIN 04/09/19 17:00 04/10/19 13:12 Senna (Senokot) 1 tab QHS PO 04/09/19 21:00 04/10/19 20:22 Sucralfate (Carafate) 1 gm ACHS PO 04/09/19 17:30 04/11/19 10:35 Vitamin D (Vitamin D) 2,000 units DAILY PO 04/10/19 09:00 04/11/19 10:35 Zinc Oxide (Boudreauxs Butt Paste) sacrum BID TOP 04/10/19 21:00 04/11/19 09:00 UBALDO GORMAN MD Apr 11, 2019 12:01
--- NOTE | 2019-04-11 12:03 | IPNPDOC ---
PM&R Progress Note DATE OF SERVICE: Apr 11, 2019 Lab Specialist Progress Note Subjective: Patient seen in the gym stating she feels tired, had a small bowel movement last night, and is receiving Venofer. REVIEW OF SYSTEMS: The following is a completed review of systems and has been reviewed. Review of systems otherwise unremarkable. PAIN: Patient self reports left leg pain EYES: No recent vision changes EARS, NOSE, & THROAT: No throat pain, or dysphagia, or rhinorrhea CARDIOVASCULAR: Denies chest pain or palpitations PULMONARY: Denies shortness of breath GASTROINTESTINAL:+constipation GENITOURINARY: denies dysuria MUSCULOSKELETAL: left distal femur fracture NEUROLOGICAL:no seizure activity/focal tremor HEMATOLOGICAL:+anemia SKIN: left knee incision, sacral rash PSYCHIATRIC: Unremarkable All other review of systems found to be negative. PHYSICAL EXAMINATION: VITAL SIGNS: Please see below. GENERAL: Pleasant and cooperative. No acute distress. HEENT: PERRL. Extraocular movements intact. Clear conjunctiva CARDIOVASCULAR: Regular rate and rhythm. No murmurs, rubs, or gallops LUNGS: Clear to auscultation bilaterally. No wheezes. No rhonchi ABDOMEN: Soft, nontender, nondistended. Positive bowel sounds. Normal active bowel sounds NEUROLOGICAL: Alert and oriented times three. Cranial nerves II through XII grossly intact. Sensation grossly intact in all 4 extremities EXTREMITIES: 5\5 strength bilateral upper extremities. 5\5 strength right lower extremity. 4/5 strength in left lowerankle DF and EHL and PF (limited exam). SKIN: left knee incision not examined, sacrum with mild erythema ASSESSMENT:83-year-old F with past medical history of CHF, pul HTN, CKD who presents status post fall with gurjit-prosthetic distal femur fracture PLAN: 1. PT- strengthen, maintain ROM and stretch RLE, work on balance and household ambulation with RW while NWB for LLE OT- stengthen, stretch, maintain ROM bilat UE, work on ADL management 2. Ortho: left distal femur gurjit-prosthetic fracture, NWB LLE, extension brace to be worn at all times, ortho consulted 2. Neuro: avoid delirogenic meds 3. Cardiac: pmh Afib with recent GI bleed off AC with dual chamber PM, spironolactone on hold due to recent Hyperkalemia, c/u beta-qiana, currently off LAsix while receive gently hydration for TYLER on CKD- medicine consulted to assist with management -HLD- c/u Lopid at lower renal dosing 4. Reps: pmh pulm HTN, encourage incentive spirometry, monitor for infection 5. Endo: Hypothyroid- c/u synthroid 6. GI: recent GI bleed, c/u Prilosec 40 BID and sucralfate with meals, optimize bowel meds -lactulose and additional suppository ordered today 7. Renal: TYLER on CKD, c/u NS IVF hydration per d/c recs, renal consulted, recs appreciated- Gifford placed -US 04/09/19 without hydronephrosis 8. DVT ppx: hepain and TEDs to RLE 9. Pain: Tylenol and oxycodone prn, ice 10. Skin: zinc to sacrum 11. Heme: anemia of chronic disease in setting of blood loss due to recent surgery- Hgb 7.6 today, receiving Venofer per renal recs, c/u to monitor 11. Dispo: tbd Allergies Coded Allergies: latex (Verified Allergy, Severe, Anaphylaxis, 10/30/18) [place] (Verified Allergy, Unknown, 10/30/18) codeine (Verified Adverse Reaction, Intermediate, Dizziness, Blurred Vision, Headache, Dry Mouth, 10/30/18) Vital Signs Vital Signs Date Time Temp Pulse Resp B/P (MAP) Pulse Ox O2 Delivery O2 Flow Rate FiO2 04/11/19 10:36 71 141/65 04/11/19 05:53 97.1 18 96 Laboratory Data CBC/BMP Laboratory Tests 04/11/19 06:18 Red Blood Count 2.34 L, Mean Corpuscular Volume 103.4 H, Mean Corpuscular Hemoglobin 32.5, Mean Corpuscular Hemoglobin Concent 31.4 L, Red Cell Distribution Width 14.9 H, Neutrophils (%) (Auto) 65.5, Lymphocytes (%) (Auto) 13.8 L, Monocytes (%) (Auto) 11.0 H, Eosinophils (%) (Auto) 6.7 H, Basophils (%) (Auto) 0.8, Neutrophils # (Auto) 3.3, Lymphocytes # (Auto) 0.7 L, Monocytes # (Auto) 0.6, Eosinophils # (Auto) 0.3, Basophils # (Auto) 0.0, Calcium Level 8.0 L Labs 24H Laboratory Tests 2 04/10/19 12:11: Iron Level 37L, Total Iron Binding Capacity 248L, Transferrin % Saturation 14.9, Ferritin 86 04/10/19 16:55: Bedside Glucose (Misc Panel) 167H 04/10/19 20:10: Bedside Glucose (Misc Panel) 134H 04/11/19 06:13: Bedside Glucose (Misc Panel) 158H 04/11/19 06:18: Immature Granulocyte % (Auto) 2.2, White Blood Count 5.1, Red Blood Count 2.34L, Hemoglobin 7.6L, Hematocrit 24.2L, Mean Corpuscular Volume 103.4H, Mean Corpuscular Hemoglobin 32.5, Mean Corpuscular Hemoglobin Concent 31.4L, Red Cell Distribution Width 14.9H, Platelet Count 225, Neutrophils (%) (Auto) 65.5, Lymph ocytes (%) (Auto) 13.8L, Monocytes (%) (Auto) 11.0H, Eosinophils (%) (Auto) 6.7H, Basophils (%) (Auto) 0.8, Neutrophils # (Auto) 3.3, Lymphocytes # (Auto) 0.7L, Monocytes # (Auto) 0.6, Eosinophils # (Auto) 0.3, Basophils # (Auto) 0.0, Nucleated Red Blood Cells % (auto) 1.6H, Anion Gap 10, Glomerular Filtration Rate 23.4L, Blood Urea Nitrogen 66H, Creatinine 2.15H, Sodium Level 136, Potassium Level 4.1, Chloride Level 106, Carbon Dioxide Level 20L, Calcium Level 8.0L 04/11/19 11:48: Bedside Glucose (Misc Panel) 167H Current Medications Current Medications Current Medications Medications (Trade) Dose Ordered Sig/Kj Route PRN Reason Start Time Stop Time Status Last Admin Dose Admin Acetaminophen (Tylenol Tab) 1,000 mg TID PO 04/09/19 21:00 04/11/19 10:37 Albuterol/ Ipratropium (Duoneb (Ipr 0.5mg/Alb 2.5mg)) 3 ml Q4HP PRN NEB SOB/WHEEZING 04/09/19 17:00 Allopurinol (Zyloprim) 300 mg QHS PO 04/09/19 21:00 04/10/19 20:22 Aspirin (Ecotrin) 81 mg DAILY PO 04/09/19 09:00 04/11/19 10:36 Bisacodyl (Dulcolax Suppository) 10 mg DAILYPRN PRN [place] CONSTIPATION 04/09/19 17:00 Calcium Carbonate (Oscal) 500 mg BID PO 04/09/19 21:00 04/11/19 10:35 Dextrose (Dextrose 50%) 25 ml ASDIRECTED PRN IV SEE LABEL COMMENTS 04/09/19 17:30 Docusate Sodium (Colace) 100 mg BID PO 04/09/19 21:00 04/11/19 10:35 Ferrous Gluconate (Fergon) 324 mg BID PO 04/09/19 21:00 04/11/19 10:37 Fluticasone Propionate (Flonase 0.05% Nasal [place]) 2 spray DAILY NARES 04/10/19 09:00 04/11/19 09:00 Gemfibrozil (Lopid) 300 mg DAILY@1730 PO 04/10/19 17:30 04/10/19 17:10 Gemfibrozil (Lopid) 600 mg BID@0730,1730 PO 04/09/19 17:30 04/10/19 11:57 DC 04/10/19 08:48 Gemfibrozil (Lopid) 600 mg DAILY@0730 PO 04/11/19 07:30 04/11/19 10:36 Glucagon (Glucagon) 1 mg ASDIRECTED PRN SC SEE LABEL COMMENTS 04/09/19 17:30 Glucose (Glucose) 16 GM ASDIRECTED PRN PO SEE LABEL COMMENTS 04/09/19 17:30 Heparin Sodium (Porcine) (Heparin) 5,000 units Q12H SC 04/09/19 21:00 04/11/19 10:34 Home Med (Med Rec Complete!) ASDIRECTED XX 04/09/19 15:30 04/09/19 15:30 DC Insulin Human Lispro (HumaLOG INSULIN) SEE PROTOCOL TABLE AC SC 04/09/19 17:30 04/11/19 07:30 Insulin Human Lispro (HumaLOG INSULIN) SEE PROTOCOL TABLE QHS SC 04/09/19 21:00 Iron 200 mg/ Sodium Chloride 110 ml @ 110 mls/hr DAILY IV 04/11/19 09:00 04/14/19 08:59 04/11/19 10:37 Levothyroxine Sodium (Synthroid) 37.5 mcg DAILY@06 PO 04/10/19 06:00 04/11/19 05:39 Loratadine (Claritin) 10 mg DAILY PO 04/10/19 09:00 04/11/19 10:35 Magnesium Hydroxide (Milk Of Magnesia) 30 ml DAILYPRN PRN PO CONSTIPATION 04/09/19 17:00 Magnesium Oxide (Mag-Ox) 400 mg BID PO 04/09/19 21:00 04/11/19 10:36 Metoprolol Succinate (TopROL XL) 100 mg DAILY PO 04/10/19 09:00 04/11/19 10:36 Omeprazole (PriLOSEC) 40 mg BID PO 04/09/19 21:00 04/11/19 10:37 Oxycodone HCl (Roxicodone, Oxyir) 5 mg Q4HP PRN PO PAIN 04/09/19 17:00 04/10/19 13:12 Senna (Senokot) 1 tab QHS PO 04/09/19 21:00 04/10/19 20:22 Sucralfate (Carafate) 1 gm ACHS PO 04/09/19 17:30 04/11/19 10:35 Vitamin D (Vitamin D) 2,000 units DAILY PO 04/10/19 09:00 04/11/19 10:35 Zinc Oxide ([place] Butt Paste) sacrum BID TOP 04/10/19 21:00 04/11/19 09:00 UBALDO GORMAN MD Apr 11, 2019 12:03
[2019-04-11 14:00] VITALS: BP 112/58
[2019-04-11] MEDS ORDERED: BISACODYL 10 MG SUPP PR PRN (14:00)
--- NOTE | 2019-04-11 16:08 | IPN ---
DATE OF SERVICE: 04/11/2019 SUBJECTIVE: The patient was seen and examined at the bedside today morning. She got the Gifford catheter placed yesterday. More than 400 mL of urine came out. She reports that she feels much better after her obstruction was relieved. Renal function is also improving. Creatinine has dropped from 2.6 to 2.1 today. There is a drop in her hemoglobin level but she denies any melena or bright red blood per rectum. OBJECTIVE: Vital signs: Temperature is 97.1 degrees Fahrenheit, blood pressure 141/65, pulse is 71, respiratory rate of 18, saturating 96% on room air. Intake and output: Urine output recorded is 1.1 liters yesterday, 600 mL so far today since overnight. PHYSICAL EXAMINATION: General: The patient is awake, alert, oriented times three, laying in bed, in no apparent distress. Head and neck exam: Extraocular muscles intact. Pupils equally round and reactive to light. Mucous membranes are moist. Neck is supple. There is moderately elevated jugular venous distention (JVD). Cardiovascular: S1, S2, regular rate. No edema of the bilateral lower extremities. Respiratory: Chest is clear to auscultation bilaterally. Bilateral equal air entry. No rales or rhonchi. Abdomen: Soft, obese, positive bowel sounds. Genitourinary: The patient has an indwelling Gifford catheter. Urine in the bag is clear. Musculoskeletal: The patient has a knee brace on the left side. Central nervous system ([employer]): No focal deficit. Power is 5/5 in bilateral upper extremities. LAB REVIEW: CBC showed WBC 5.1, hemoglobin 7.6, platelets of 225. BMP showed sodium 136, potassium 4.1, chloride 106, bicarbonate 20, BUN 66, creatinine is 2.1, it was 2.6 yesterday, calcium is 8. CURRENT INPATIENT MEDICATIONS: The patient's medications were all reviewed by me. She has been started on Venofer 200 mg IV daily. I also see that 1 unit of packed red blood cells (PRBC) transfusion has been ordered as well. No other change in the medications today as compared with yesterday. ASSESSMENT AND PLAN: 1. Acute kidney injury superimposed on chronic kidney disease. Baseline creatinine is 1.2. The patient was in urinary retention yesterday. Gifford catheter was placed. Creatinine is improving. It is down to 2.1 now. Continue the Gifford catheter for now. No need of IV fluid hydration. 2. Iron deficiency anemia. The patient recently had surgery as well and she lost some blood. Hemoglobin has dropped to 7.6. Primary team has already ordered 1 unit of PRBC transfusion. Continue the Venofer as well. 3. Hypertension. Blood pressure is optimal. Continue current dose of metoprolol XL 100 mg by mouth daily. 4. Cor pulmonale. The patient has severe pulmonary hypertension with dilated right heart chambers and she has evidence of deep venous thrombosis (DVT) on exam as well. Currently diuretics are on hold because of acute kidney injury. MTDD
[2019-04-11 20:00] VITALS: BP 132/69
[2019-04-11] MEDS: allopurinoL 300 MG TAB PO SCH (20:25)
[2019-04-11] MEDS: SENNA 8.6 MG TAB (SENOKOT) PO SCH (20:28)
[2019-04-12] MEDS: BOUDREAUX'S BUTT PASTE TOP SCH ×3 (03:16→21:25)
[2019-04-12 04:00] VITALS: BP 114/56
[2019-04-12] MEDS: LEVOTHYROXINE 37.5MCG PER 1/2TAB (0.0375MG) PO SCH (06:12)
[2019-04-12 07:52] LABS: BASO % 0.7 % (0.0-1.0); EOS # 0.4 10^3/uL (0.0-0.5); EOS % 6.5 % (0.0-3.0); HEMATOCRIT 25.7 % (36.0-47.0); HEMOGLOBIN 7.9 g/dl (12.0-15.5); LYMPH # 0.7 10^3/uL (1.5-5.0); LYMPH % 13.4 % (24.0-44.0); MEAN CORPUSCULAR HGB CONC 30.7 g/dl (32.0-36.5); MONO # 0.7 10^3/uL (0.0-0.8); MONO % 11.9 % (0.0-5.0); NEUTROPHILS # 3.5 10^3/uL (1.5-8.5); NEUTROPHILS % 63.7 % (36.0-66.0); PLATELET COUNT, AUTOMATED 267 10^3/uL (150-450); RED BLOOD COUNT 2.47 10^6/uL (4.00-5.40); WHITE BLOOD COUNT 5.5 10^3/uL (4.0-10.0)
[2019-04-12 08:16] LABS: CALCIUM LEVEL 8.3 MG/DL (8.8-10.2); CREATININE FOR GFR 1.87 MG/DL (0.55-1.30); GLOMERULAR FILTRATION RATE 27.5 (>32)
[2019-04-12] MEDS: IRON SUCROSE 200 MG in NS 100 ML IV SCH (08:28)
[2019-04-12] MEDS: OYSTER SHELL CALCIUM 500 MG TAB PO SCH ×2 (08:29→21:20)
[2019-04-12] MEDS: SUCRALFATE 1 GM TAB PO SCH ×4 (08:29→21:20)
[2019-04-12] MEDS: OMEPRAZOLE 20 MG CAP PO SCH ×2 (08:29→21:20)
[2019-04-12] MEDS: HumaLOG INSULIN (NovoLOG) PER UNIT SC SCH ×4 (08:29→21:00)
[2019-04-12] MEDS: MAGNESIUM OXIDE 400 MG TAB (MAG-OX) PO SCH ×2 (08:29→21:20)
[2019-04-12] MEDS: FERROUS GLUCONATE 324 MG TAB PO SCH ×2 (08:29→21:20)
[2019-04-12] MEDS: ACETAMINOPHEN 500 MG TAB PO SCH ×3 (08:29→21:21)
[2019-04-12] MEDS: FLUTICASONE PROP 0.05% NASAL SPRAY 16 GM (FLONASE) NARES SCH (08:30)
[2019-04-12] MEDS: HEPARIN SOD (PORCINE) 5000 UNITS/ML VIAL SC SCH ×2 (08:30→21:20)
[2019-04-12] MEDS: VITAMIN D 1,000 INTERNATIONAL UNITS TABLET PO SCH (08:30)
[2019-04-12] MEDS: ASPIRIN 81 MG ENTERIC TAB PO SCH (08:30)
[2019-04-12] MEDS: METOPROLOL SUCC (TopROL XL) 100MG *XL* TAB PO SCH (08:30)
[2019-04-12] MEDS: gemfibroziL 600 MG TAB PO SCH ×2 (08:31→17:27)
[2019-04-12] MEDS: LORATADINE 10 MG TAB PO SCH (08:31)
[2019-04-12] MEDS: DOCUSATE SODIUM 100 MG CAP PO SCH ×2 (08:31→21:20)
--- NOTE | 2019-04-12 12:33 | IPNPDOC ---
Date Seen The patient was seen on 04/12/19. Progress Note SUBJECTIVE: c/o pain in the left LE,lying on her right side, and requesting for her left leg can be moved forward a little. creatinine is almost back to baseline, still off diuretics. cody placed due to retention. OBJECTIVE: Vitals: pls see below. I/O and weight : reviewed, pls see below General: The patient is awake, alert, oriented to person and place, able to converse appropriately, in no respiratory distress or use of respiratory accessory muscles. Dry mucous membranes.lying on her right side in position with left leg flexed at the knee with a brace. Lungs: Clear to auscultation. No wheezing, rales or rhonchi. Heart: S1 and S2. Sinus rhythm. Abdomen: Soft. Obese. Nontender. Nondistended.cody dark urine Postop left hip. Skin color is pink, warm, dry. Extremities: left leg brace flexed no edema. LABORATORY DATA:reviewed ASSESSMENT AND PLAN: This is an 83-year-old with history of chronic kidney disease (CKD) stage 3 with baseline creatinine 1.2 to 1.3, atrial fibrillation not anticoagulation due to history of GI bleed and usually on aspirin, congestive heart failure with severe pulmonary hypertension, dyslipidemia, hypothyroidism, peptic ulcer disease, reflux, rheumatoid arthritis, GI bleed with hypotensive shock in 10/2018, diabetes with recurrent hyperglycemia, hypothyroidism, mitral regurgitation, severe tricuspid regurgitation, history of complete AV block with pacemaker, essential hypertension, and anemia due to chronic kidney disease, admitted due to a fall with resulting left hip fracture status post ORIF who had hyperkalemia and Spironolactone had been discontinued. CURRENT ISSUES: Acute on chronic renal failure,improved to baseline. due to urine retention . now with cody catheter with dark colored urine. patient's diuretics, Lasix and Spironolactone, have been discontinued. s/p trial of IV fluids. reviewed ins and outs, Nephrology managing pt's fluid balance. Left distal femoral fracture s/p status post mechanical fall. postoperative management including DVT prophylaxis with ASA and heparin sq, pain mgt, and activity per orthopedic surgery. PT/OT/ARU attending. Atrial fibrillation, on metoprolol 100 daily. Rate controlled. No anticoagulation due to recent GI bleed. only on ASA. Hypothyroidism, on levothyroxine. Anemia given iron by nephrology Vitamin D deficiency, on calcium and vitamin D replacement. Dyslipidemia, on Lopid. Type 2 diabetes, on hyperglycemic protocol, insulin sliding scale, consistent carbohydrate diet. History of GI bleed, on Carafate and proton pump inhibitor on Prilosec 40 twice a day. VS, I&O, 24H, Fishbone Vital Signs/I&O Vital Signs Date Time Temp Pulse Resp B/P (MAP) Pulse Ox O2 Delivery O2 Flow Rate FiO2 04/12/19 08:30 70 114/56 04/12/19 04:00 96.7 18 99 I&O- Last 24 Hours up to 6 AM 04/12/19 06:00 Intake Total 610 ml Output Total 450 ml Balance 160 ml Laboratory Data 24H LABS Laboratory Tests 2 04/11/19 16:31: Bedside Glucose (Misc Panel) 160H 04/11/19 20:16: Bedside Glucose (Misc Panel) 197H 04/12/19 07:26: Immature Granulocyte % (Auto) 3.8H, White Blood Count 5.5, Red Blood Count 2.47L, Hemoglobin 7.9L, Hematocrit 25.7L, Mean Corpuscular Volume 104.0H, Mean Corpuscular Hemoglobin 32.0, Mean Corpuscular Hemoglobin Concent 30.7L, Red Cell Distribution Width 15.5H, Platelet Count 267, Neutrophils (%) (Auto) 63.7, Lymphocytes (%) (Auto) 13.4L, Monocytes (%) (Auto) 11.9H, Eosinophils (%) (Auto) 6.5H, Basophils (%) (Auto) 0.7, Neutrophils # (Auto) 3.5, Lymphocytes # (Auto) 0.7L, Monocytes # (Auto) 0.7, Eosinophils # (Auto) 0.4, Basophils # (Auto) 0.0, Nucleated Red Blood Cells % (auto) 1.3H, Anion Gap 8, Glomerular Filtration Rate 27.5L, Blood Urea Nitrogen 57H, Creatinine 1.87H, Sodium Level 139, Potassium Level 4.0, Chloride Level 108H, Carbon Dioxide Level 23, Calcium Level 8.3L 04/12/19 12:05: Bedside Glucose (Misc Panel) 227H CBC/BMP Laboratory Tests 04/12/19 07:26 Red Blood Count 2.47 L, Mean Corpuscular Volume 104.0 H, Mean Corpuscular Hemoglobin 32.0, Mean Corpuscular Hemoglobin Concent 30.7 L, Red Cell Distribution Width 15.5 H, Neutrophils (%) (Auto) 63.7, Lymphocytes (%) (Auto) 13.4 L, Monocytes (%) (Auto) 11.9 H, Eosinophils (%) (Auto) 6.5 H, Basophils (%) (Auto) 0.7, Neutrophils # (Auto) 3.5, Lymphocytes # (Auto) 0.7 L, Monocytes # (Auto) 0.7, Eosinophils # (Auto) 0.4, Basophils # (Auto) 0.0, Calcium Level 8.3 L LIZ ANDRADE MD Apr 12, 2019 12:32
[2019-04-12 14:00] VITALS: BP 129/57
[2019-04-12] MEDS ORDERED: FUROSEMIDE 40 MG TAB PO ONE (14:15)
--- NOTE | 2019-04-12 15:36 | IPN ---
DATE: 04/12/2019 Mrs. Doty is seen this morning on her bedside. She was admitted with left femoral fracture due to fall. She was noticed to have acute renal failure due to which she is being followed by nephrology. Her kidney function has improved since she was hydrated and also had a Gifford catheter placed. The patient still reports significant pain in her leg and difficulty moving. She denies any vomiting but not eating well. She has no chest pain or dyspnea. PHYSICAL EXAMINATION: Temperature 96.7 degrees Fahrenheit, heart rate 70 per minute and respiratory rate 18 per minute. Blood pressure 114/56 mmHg and oxygen saturation 99%. Her head is atraumatic. Neck is supple and jugular venous distention (JVD) is quite significantly prominent. Heart sounds are regular. Lungs with diminished breath sounds and bibasilar rales. Abdomen is obese, soft and nontender. Extremities without any cyanosis or clubbing. Left leg is in the brace and dressing on her knee area is intact. Neurologically, she is awake, alert and oriented times three. LABORATORY DATA: Today's laboratories show WBC count 5.5, hemoglobin 7.9 and hematocrit 25.7. Platelets 267. Sodium 139, potassium 4.0, CO2 23, BUN 57 and creatinine 1.87. Glucose 140 and calcium 8.3. PROBLEMS: 1. Acute renal failure, superimposed on chronic kidney disease. Her creatinine was 2.68 on 04/10/2019. Yesterday it came down to 2.15 and today creatinine is 1.87. Gifford catheter is draining clear yellow urine. Kidney function will be monitored on a daily basis. She did have urinary retention and I would like to maintain her Gifford catheter at least until she is more ambulatory and able to get out of bed. 2. Anemia. Her anemia is slightly better but significant. She has iron deficiency and is currently receiving intravenous Venofer. 3. Congestive heart failure. She did receive some IV fluid due to acute renal failure and her volume status is now decompensated. I will give her one dose of Lasix 40 mg today. She should not receive further IV fluid.
[2019-04-12 19:53] VITALS: BP 139/62
[2019-04-12] MEDS: allopurinoL 300 MG TAB PO SCH (21:20)
[2019-04-12] MEDS: SENNA 8.6 MG TAB (SENOKOT) PO SCH (21:20)
[2019-04-13] MEDS: LEVOTHYROXINE 37.5MCG PER 1/2TAB (0.0375MG) PO SCH (05:20)
[2019-04-13 06:00] VITALS: BP 130/70
[2019-04-13] MEDS: OMEPRAZOLE 20 MG CAP PO SCH ×2 (09:00→20:28)
[2019-04-13] MEDS: IRON SUCROSE 200 MG in NS 100 ML IV SCH (09:00)
[2019-04-13] MEDS: DOCUSATE SODIUM 100 MG CAP PO SCH ×2 (09:00→20:29)
[2019-04-13] MEDS: METOPROLOL SUCC (TopROL XL) 100MG *XL* TAB PO SCH (09:00)
[2019-04-13] MEDS: HEPARIN SOD (PORCINE) 5000 UNITS/ML VIAL SC SCH ×2 (09:00→20:30)
[2019-04-13] MEDS: gemfibroziL 600 MG TAB PO SCH ×2 (09:00→17:07)
[2019-04-13] MEDS: OYSTER SHELL CALCIUM 500 MG TAB PO SCH ×2 (09:00→20:29)
[2019-04-13] MEDS: VITAMIN D 1,000 INTERNATIONAL UNITS TABLET PO SCH (09:00)
[2019-04-13] MEDS: LORATADINE 10 MG TAB PO SCH (09:00)
[2019-04-13] MEDS: ASPIRIN 81 MG ENTERIC TAB PO SCH (09:01)
[2019-04-13] MEDS: FERROUS GLUCONATE 324 MG TAB PO SCH ×2 (09:01→20:29)
[2019-04-13] MEDS: HumaLOG INSULIN (NovoLOG) PER UNIT SC SCH ×4 (09:01→20:20)
[2019-04-13] MEDS: ACETAMINOPHEN 500 MG TAB PO SCH ×3 (09:01→20:29)
[2019-04-13] MEDS: MAGNESIUM OXIDE 400 MG TAB (MAG-OX) PO SCH ×2 (09:01→20:30)
[2019-04-13] MEDS: SUCRALFATE 1 GM TAB PO SCH ×4 (09:01→20:29)
[2019-04-13] MEDS: FLUTICASONE PROP 0.05% NASAL SPRAY 16 GM (FLONASE) NARES SCH (09:02)
[2019-04-13] MEDS: BOUDREAUX'S BUTT PASTE TOP SCH ×2 (09:02→20:30)
[2019-04-13 14:00] VITALS: BP 111/50
--- NOTE | 2019-04-13 16:08 | IPN ---
DATE: 04/13/2019 Mrs. Doty is seen this morning on her bedside. She is working with the physical therapist in her room. She reports that her Gifford catheter was removed yesterday and she has been able to urinate. She denies any dyspnea, chest pain, nausea or vomiting. PHYSICAL EXAMINATION: Temperature 97.9 degrees Fahrenheit, heart rate 66 per minute and respiratory rate 18 per minute. Blood pressure 130/70 mmHg and oxygen saturation 95% on room air. Head is atraumatic. Neck is supple and JVD is mildly elevated. Heart sounds are regular and lungs with slightly diminished breath sounds and bibasilar rales. Abdomen obese, soft and nontender and bowel sounds present. Extremities without any cyanosis or clubbing. Her left leg brace is in place. She did not have any new labs sent today. PROBLEMS: 1. Acute renal failure superimposed on chronic kidney disease. Kidney function has been gradually improving. Renal profile will be checked again tomorrow morning. 2. Congestive heart failure. Her volume status is slightly decompensated. I will hold off on further diuretic use as she is oxygenating very well on room air and not in any distress. We will check her renal function and electrolytes tomorrow morning and then consider a dose of diuretic if needed. 3. Urinary retention. Gifford catheter has already been removed. The patient reports that she is voiding without any difficulty. A postvoid bladder scan should be done to rule out any significant residual volume. 4. Anemia. She has received IV iron and anemia will be checked again tomorrow morning with a CBC. No transfusion has been given so far.
[2019-04-13 20:00] VITALS: BP 137/63
[2019-04-13] MEDS: allopurinoL 300 MG TAB PO SCH (20:28)
[2019-04-13] MEDS: SENNA 8.6 MG TAB (SENOKOT) PO SCH (20:30)
[2019-04-14 06:00] VITALS: BP 150/69
[2019-04-14] MEDS: LEVOTHYROXINE 37.5MCG PER 1/2TAB (0.0375MG) PO SCH (06:31)
[2019-04-14 06:39] LABS: HEMATOCRIT 25.1 % (36.0-47.0); HEMOGLOBIN 7.8 g/dl (12.0-15.5); MEAN CORPUSCULAR HEMOGLOBIN 32.5 pg (27.0-33.0); MEAN CORPUSCULAR HGB CONC 31.1 g/dl (32.0-36.5); MEAN CORPUSCULAR VOLUME 104.6 fl (80.0-96.0); PLATELET COUNT, AUTOMATED 308 10^3/uL (150-450); WHITE BLOOD COUNT 6.5 10^3/uL (4.0-10.0)
[2019-04-14 07:02] LABS: ALBUMIN 2.7 GM/DL (3.2-5.2); CALCIUM LEVEL 8.6 MG/DL (8.8-10.2); CREATININE FOR GFR 1.57 MG/DL (0.55-1.30); GLOMERULAR FILTRATION RATE 33.7 (>32); PHOSPHORUS LEVEL 3.1 MG/DL (2.5-4.9); POTASSIUM SERUM 3.6 MEQ/L (3.5-5.1)
[2019-04-14] MEDS: FERROUS GLUCONATE 324 MG TAB PO SCH ×2 (08:02→20:23)
[2019-04-14] MEDS: OYSTER SHELL CALCIUM 500 MG TAB PO SCH ×2 (08:02→20:23)
[2019-04-14] MEDS: VITAMIN D 1,000 INTERNATIONAL UNITS TABLET PO SCH (08:02)
[2019-04-14] MEDS: DOCUSATE SODIUM 100 MG CAP PO SCH ×2 (08:02→20:24)
[2019-04-14] MEDS: SUCRALFATE 1 GM TAB PO SCH ×4 (08:02→20:23)
[2019-04-14] MEDS: LORATADINE 10 MG TAB PO SCH (08:02)
[2019-04-14] MEDS: OMEPRAZOLE 20 MG CAP PO SCH ×2 (08:02→20:23)
[2019-04-14] MEDS: MAGNESIUM OXIDE 400 MG TAB (MAG-OX) PO SCH ×2 (08:02→20:24)
[2019-04-14] MEDS: ASPIRIN 81 MG ENTERIC TAB PO SCH (08:02)
[2019-04-14] MEDS: gemfibroziL 600 MG TAB PO SCH ×2 (08:03→17:32)
[2019-04-14] MEDS: HEPARIN SOD (PORCINE) 5000 UNITS/ML VIAL SC SCH ×2 (08:03→20:23)
[2019-04-14] MEDS: METOPROLOL SUCC (TopROL XL) 100MG *XL* TAB PO SCH (08:05)
[2019-04-14] MEDS: FLUTICASONE PROP 0.05% NASAL SPRAY 16 GM (FLONASE) NARES SCH (08:06)
[2019-04-14] MEDS: ACETAMINOPHEN 500 MG TAB PO SCH ×3 (08:06→20:23)
[2019-04-14] MEDS: HumaLOG INSULIN (NovoLOG) PER UNIT SC SCH ×4 (08:07→20:24)
[2019-04-14] MEDS: BOUDREAUX'S BUTT PASTE TOP SCH ×2 (08:07→20:24)
[2019-04-14] MEDS ORDERED: POTASSIUM CHLORIDE 10 MEQ SR TABLET PO ONE (11:15)
[2019-04-14] MEDS ORDERED: diphenhydrAMINE INJ 50MG/ML VIAL (J1200) IM ONE (11:30)
[2019-04-14] MEDS ORDERED: FUROSEMIDE 40 MG/4 ML VIAL (J1940) IV ONE (11:30)
[2019-04-14] MEDS ORDERED: ACETAMINOPHEN TAB 650MG DOSE (2X325MG) PO ONE (11:30)
--- NOTE | 2019-04-14 11:44 | IPNPDOC ---
PM&R Progress Note DATE OF SERVICE: Apr 14, 2019 Dishwasher Progress Note Subjective: Patient and nursing reporting a bloody bowel movement lat night, none further as of today. Patient reporting her left leg feels sore and she is tired. She is agreeable to getting a blood transfusion. Her breathing is nor worse today she reports. REVIEW OF SYSTEMS: The following is a completed review of systems and has been reviewed. Review of systems otherwise unremarkable. PAIN: Patient self reports left leg pain EYES: No recent vision changes EARS, NOSE, & THROAT: No throat pain, or dysphagia, or rhinorrhea CARDIOVASCULAR: Denies chest pain or palpitations PULMONARY: Denies shortness of breath GASTROINTESTINAL:+constipation (resolve) GENITOURINARY: denies dysuria MUSCULOSKELETAL: left distal femur fracture NEUROLOGICAL:no seizure activity/focal tremor HEMATOLOGICAL:+anemia SKIN: left knee incision, sacral rash PSYCHIATRIC: Unremarkable All other review of systems found to be negative. PHYSICAL EXAMINATION: VITAL SIGNS: Please see below. GENERAL: Pleasant and cooperative. No acute distress. HEENT: PERRL. Extraocular movements intact. Clear conjunctiva CARDIOVASCULAR: Regular rate and rhythm. No murmurs, rubs, or gallops LUNGS: Clear to auscultation bilaterally. No wheezes. No rhonchi ABDOMEN: Soft, nontender, nondistended. Positive bowel sounds. Normal active bowel sounds NEUROLOGICAL: Alert and oriented times three. Cranial nerves II through XII grossly intact. Sensation grossly intact in all 4 extremities EXTREMITIES: 5\5 strength bilateral upper extremities. 5\5 strength right lower extremity. 4/5 strength in left lowerankle DF and EHL and PF (limited exam). SKIN: left knee incision not examined, sacrum with mild erythema ASSESSMENT:83-year-old F with past medical history of CHF, pul HTN, CKD who presents status post fall with gurjit-prosthetic distal femur fracture PLAN: 1. PT- strengthen, maintain ROM and stretch RLE, work on balance and household ambulation with RW while NWB for LLE OT- stengthen, stretch, maintain ROM bilat UE, work on ADL management 2. Ortho: left distal femur gurjit-prosthetic fracture, NWB LLE, extension brace to be worn at all times, ortho consulted 2. Neuro: avoid delirogenic meds 3. Cardiac: pmh Afib with recent GI bleed off AC with dual chamber PM, spironolactone on hold due to recent Hyperkalemia, c/u beta-qiana, currently off LAsix while receive gently hydration for TYLER on CKD- medicine consulted to assist with management -HLD- c/u Lopid at lower renal dosing 4. Reps: pmh pulm HTN, encourage incentive spirometry, monitor for infection 5. Endo: Hypothyroid- c/u synthroid 6. GI: recent GI bleed, c/u Prilosec 40 BID and sucralfate with meals, optimize bowel meds - bloody BM on 04/13/19, c/u to monitor and transfuse blood x2 units 7. Renal: TYLER on CKD, s/p NS IVF hydration per d/c recs, renal consulted, recs appreciated- Gifford removed -US 04/09/19 without hydronephrosis 8. DVT ppx: hepain and TEDs to RLE 9. Pain: Tylenol and oxycodone prn, ice 10. Skin: zinc to sacrum 11. Heme: anemia of chronic disease in setting of blood loss due to recent surgery- Hgb 7.8 today, receiving Venofer per renal recs, in setting of recent bloody BM will give 2 units rbcs, c/u to monitor 11. Dispo: tbd Allergies Coded Allergies: latex (Verified Allergy, Severe, Anaphylaxis, 10/30/18) [place] (Verified Allergy, Unknown, 10/30/18) codeine (Verified Adverse Reaction, Intermediate, Dizziness, Blurred Vision, Headache, Dry Mouth, 10/30/18) Vital Signs Vital Signs Date Time Temp Pulse Resp B/P (MAP) Pulse Ox O2 Delivery O2 Flow Rate FiO2 04/14/19 08:05 76 144/68 04/14/19 06:00 97.5 18 98 Laboratory Data CBC/BMP Laboratory Tests 04/14/19 06:18 Red Blood Count 2.40 L, Mean Corpuscular Volume 104.6 H, Mean Corpuscular Hemoglobin 32.5, Mean Corpuscular Hemoglobin Concent 31.1 L, Red Cell Distribution Width 15.9 H, Anion Gap 9 Labs 24H Laboratory Tests 2 04/13/19 11:50: Bedside Glucose (Misc Panel) 151H 04/13/19 17:07: Bedside Glucose (Misc Panel) 218H 04/13/19 19:41: Bedside Glucose (Misc Panel) 186H 04/14/19 06:18: Nucleated Red Blood Cells % (auto) 3.1H, Blood Urea Nitrogen 54H, Creatinine 1.57H, Sodium Level 139, Potassium Level 3.6, Chloride Level 109H, Carbon Dioxide Level 21, Anion Gap 9, Glomerular Filtration Rate 33.7, Calcium Level 8.6L, Phosphorus Level 3.1, Albumin 2.7L 04/14/19 06:32: Bedside Glucose (Misc Panel) 163H Current Medications Current Medications Current Medications Medications (Trade) Dose Ordered Sig/Kj Route PRN Reason Start Time Stop Time Status Last Admin Dose Admin Acetaminophen (Tylenol Tab) 1,000 mg TID PO 04/09/19 21:00 04/14/19 08:06 Albuterol/ Ipratropium (Duoneb (Ipr 0.5mg/Alb 2.5mg)) 3 ml Q4HP PRN NEB SOB/WHEEZING 04/09/19 17:00 Allopurinol (Zyloprim) 300 mg QHS PO 04/09/19 21:00 04/13/19 20:28 Aspirin (Ecotrin) 81 mg DAILY PO 04/09/19 09:00 04/14/19 08:02 Bisacodyl (Dulcolax Suppository) 10 mg DAILYPRN PRN IN CONSTIPATION 04/09/19 17:00 Bisacodyl (Dulcolax Suppository) 10 mg ONCE PRN IN 2 hrs after lactulose if no BM 04/11/19 14:00 04/11/19 16:00 DC Calcium Carbonate (Oscal) 500 mg BID PO 04/09/19 21:00 04/14/19 08:02 Dextrose (Dextrose 50%) 25 ml ASDIRECTED PRN IV SEE LABEL COMMENTS 04/09/19 17:30 Docusate Sodium (Colace) 100 mg BID PO 04/09/19 21:00 04/14/19 08:02 Ferrous Gluconate (Fergon) 324 mg BID PO 04/09/19 21:00 04/14/19 08:02 Fluticasone Propionate (Flonase 0.05% Nasal [place]) 2 spray DAILY NARES 04/10/19 09:00 04/14/19 08:06 Gemfibrozil (Lopid) 300 mg DAILY@1730 PO 04/10/19 17:30 04/13/19 17:07 Gemfibrozil (Lopid) 600 mg BID@0730,1730 PO 04/09/19 17:30 04/10/19 11:57 DC 04/10/19 08:48 Gemfibrozil (Lopid) 600 mg DAILY@0730 PO 04/11/19 07:30 04/14/19 08:03 Glucagon (Glucagon) 1 mg ASDIRECTED PRN SC SEE LABEL COMMENTS 04/09/19 17:30 Glucose (Glucose) 16 GM ASDIRECTED PRN PO SEE LABEL COMMENTS 04/09/19 17:30 Heparin Sodium (Porcine) (Heparin) 5,000 units Q12H SC 04/09/19 21:00 04/14/19 08:03 Home Med (Med Rec Complete!) ASDIRECTED XX 04/09/19 15:30 04/09/19 15:30 DC Insulin Human Lispro (HumaLOG INSULIN) SEE PROTOCOL TABLE AC SC 04/09/19 17:30 04/14/19 08:07 Insulin Human Lispro (HumaLOG INSULIN) SEE PROTOCOL TABLE QHS SC 04/09/19 21:00 Iron 200 mg/ Sodium Chloride 110 ml @ 110 mls/hr DAILY IV 04/11/19 09:00 04/14/19 08:59 DC 04/13/19 09:00 Levothyroxine Sodium (Synthroid) 37.5 mcg DAILY@06 PO 04/10/19 06:00 04/14/19 06:31 Loratadine (Claritin) 10 mg DAILY PO 04/10/19 09:00 04/14/19 08:02 Magnesium Hydroxide (Milk Of Magnesia) 30 ml DAILYPRN PRN PO CONSTIPATION 04/09/19 17:00 Magnesium Oxide (Mag-Ox) 400 mg BID PO 04/09/19 21:00 04/14/19 08:02 Metoprolol Succinate (TopROL XL) 100 mg DAILY PO 04/10/19 09:00 04/14/19 08:05 Omeprazole (PriLOSEC) 40 mg BID PO 04/09/19 21:00 04/14/19 08:02 Oxycodone HCl (Roxicodone, Oxyir) 5 mg Q4HP PRN PO PAIN 04/09/19 17:00 04/10/19 13:12 Senna (Senokot) 1 tab QHS PO 04/09/19 21:00 04/13/19 20:30 Sucralfate (Carafate) 1 gm ACHS PO 04/09/19 17:30 04/14/19 08:02 Vitamin D (Vitamin D) 2,000 units DAILY PO 04/10/19 09:00 04/14/19 08:02 Zinc Oxide (Boudreauxs Butt Paste) sacrum BID TOP 04/10/19 21:00 04/13/19 09:02 UBALDO GORMAN MD Apr 14, 2019 11:44
[2019-04-14 14:00] VITALS: BP 151/70
--- NOTE | 2019-04-14 14:18 | IPN ---
DATE OF SERVICE: 04/14/2019 Mrs. Doty is seen this morning on her bedside. She is still feeling about the same. She denies any nausea, vomiting, dyspnea or chest pain. Her left leg still hurts and she has difficulty with rehabilitation, however, she is trying. On physical examination, temperature 97.5 degrees Fahrenheit, heart rate 76 per minute and respiratory rate 18 per minute. Blood pressure 144/68 mmHg and oxygen saturation 98% on room air. Head is atraumatic. Neck is supple and jugular venous distention (JVD) is about 10 cm above sternal angle. Heart: Sounds are regular and lungs with diminished breath sounds and bibasilar rales. Abdomen: Obese, soft and nontender and bowel sounds are normal. Extremities: Without any cyanosis or clubbing. Left leg remains in the brace. Today's labs show WBC count 6.5, hemoglobin 7.8 and hematocrit 25.1. Platelets 308. Sodium 139, potassium 3.6, CO2 21, BUN 54 and creatinine 1.57, glucose 171 and calcium 8.6. Albumin is 2.7. PROBLEMS: 1. Acute kidney injury superimposed on chronic kidney disease. Kidney function is improving nicely. She did have urinary retention and had a catheter placed for a couple of days which has been now removed. She is diuresing and voiding well. We will continue to monitor without any other intervention. 2. Congestive heart failure. Volume status is still decompensated and her neck veins are quite elevated. She is going to have transfusion today and I would recommend giving her intravenous Lasix 40 mg prior to transfusions. 3. Hypokalemia. She has received diuretic for the last couple of days. We will give her potassium chloride 40 mEq one dose today as she is going to need more Lasix with blood transfusions. 4. Anemia. She has received intravenous iron without any significant improvement in her hematocrit. She is going to receive 2 units of packed RBCs today. She will continue with oral iron supplement.
[2019-04-14 20:05] VITALS: BP 135/65
[2019-04-14] MEDS: allopurinoL 300 MG TAB PO SCH (20:23)
[2019-04-14] MEDS: SENNA 8.6 MG TAB (SENOKOT) PO SCH (20:24)
[2019-04-15 06:00] VITALS: BP 130/64
[2019-04-15] MEDS: LEVOTHYROXINE 37.5MCG PER 1/2TAB (0.0375MG) PO SCH (06:14)
[2019-04-15 07:08] LABS: HEMATOCRIT 29.5 % (36.0-47.0); HEMOGLOBIN 9.5 g/dl (12.0-15.5); MEAN CORPUSCULAR HEMOGLOBIN 31.9 pg (27.0-33.0); MEAN CORPUSCULAR HGB CONC 32.2 g/dl (32.0-36.5); PLATELET COUNT, AUTOMATED 289 10^3/uL (150-450); RED BLOOD COUNT 2.98 10^6/uL (4.00-5.40); WHITE BLOOD COUNT 7.8 10^3/uL (4.0-10.0)
[2019-04-15 07:39] LABS: EOSINOPHILS 8 % (0-3); LYMPHOCYTES 14 % (16-44); METAMYELOCYTES 1 % (0-0); MONOCYTES 2 % (0-5); MYELOCYTES 1 % (0-0); NEUTROPHILS 73 % (28-66)
[2019-04-15 07:40] LABS: PLATELET ESTIMATE NORMAL (NORMAL); POLYCHROMASIA 1+
[2019-04-15 07:41] LABS: ANISOCYTOSIS 3+
[2019-04-15] MEDS: LORATADINE 10 MG TAB PO SCH (08:34)
[2019-04-15] MEDS: HumaLOG INSULIN (NovoLOG) PER UNIT SC SCH ×4 (08:34→21:00)
[2019-04-15] MEDS: VITAMIN D 1,000 INTERNATIONAL UNITS TABLET PO SCH (08:34)
[2019-04-15] MEDS: HEPARIN SOD (PORCINE) 5000 UNITS/ML VIAL SC SCH ×2 (08:34→21:47)
[2019-04-15] MEDS: OMEPRAZOLE 20 MG CAP PO SCH ×2 (08:34→21:48)
[2019-04-15] MEDS: SUCRALFATE 1 GM TAB PO SCH ×4 (08:34→21:47)
[2019-04-15] MEDS: MAGNESIUM OXIDE 400 MG TAB (MAG-OX) PO SCH ×2 (08:35→21:48)
[2019-04-15] MEDS: OYSTER SHELL CALCIUM 500 MG TAB PO SCH ×2 (08:35→21:48)
[2019-04-15] MEDS: gemfibroziL 600 MG TAB PO SCH ×2 (08:35→17:44)
[2019-04-15] MEDS: ASPIRIN 81 MG ENTERIC TAB PO SCH (08:35)
[2019-04-15] MEDS: FERROUS GLUCONATE 324 MG TAB PO SCH ×2 (08:35→21:47)
[2019-04-15] MEDS: METOPROLOL SUCC (TopROL XL) 100MG *XL* TAB PO SCH (08:37)
[2019-04-15] MEDS: ACETAMINOPHEN 500 MG TAB PO SCH ×3 (08:37→21:48)
[2019-04-15] MEDS: DOCUSATE SODIUM 100 MG CAP PO SCH ×2 (08:37→21:48)
[2019-04-15] MEDS: BOUDREAUX'S BUTT PASTE TOP SCH ×2 (08:38→21:48)
[2019-04-15] MEDS: FLUTICASONE PROP 0.05% NASAL SPRAY 16 GM (FLONASE) NARES SCH (08:38)
[2019-04-15 14:00] VITALS: BP 140/63
--- NOTE | 2019-04-15 14:08 | IPNPDOC ---
PM&R Progress Note DATE OF SERVICE: Apr 15, 2019 Conference Service Coordinator Progress Note Subjective: Patient reportng she feels better after the blood transfusion and has no pain in her left leg until she is asked to move. Her son is in the process of building a ramp. REVIEW OF SYSTEMS: The following is a completed review of systems and has been reviewed. Review of systems otherwise unremarkable. PAIN: Patient self reports left leg pain EYES: No recent vision changes EARS, NOSE, & THROAT: No throat pain, or dysphagia, or rhinorrhea CARDIOVASCULAR: Denies chest pain or palpitations PULMONARY: Denies shortness of breath GASTROINTESTINAL:+constipation (resolve) GENITOURINARY: denies dysuria MUSCULOSKELETAL: left distal femur fracture NEUROLOGICAL:no seizure activity/focal tremor HEMATOLOGICAL:+anemia SKIN: left knee incision, sacral rash PSYCHIATRIC: Unremarkable All other review of systems found to be negative. PHYSICAL EXAMINATION: VITAL SIGNS: Please see below. GENERAL: Pleasant and cooperative. No acute distress. HEENT: PERRL. Extraocular movements intact. Clear conjunctiva CARDIOVASCULAR: Regular rate and rhythm. No murmurs, rubs, or gallops LUNGS: Clear to auscultation bilaterally. No wheezes. No rhonchi ABDOMEN: Soft, nontender, nondistended. Positive bowel sounds. Normal active bowel sounds NEUROLOGICAL: Alert and oriented times three. Cranial nerves II through XII grossly intact. Sensation grossly intact in all 4 extremities EXTREMITIES: 5\5 strength bilateral upper extremities. 5\5 strength right lower extremity. 4/5 strength in left lowerankle DF and EHL and PF (limited exam). SKIN: left knee incision not examined, sacrum with mild erythema ASSESSMENT:83-year-old F with past medical history of CHF, pul HTN, CKD who presents status post fall with gurjit-prosthetic distal femur fracture PLAN: 1. PT- strengthen, maintain ROM and stretch RLE, work on balance and household ambulation with RW while NWB for LLE OT- stengthen, stretch, maintain ROM bilat UE, work on ADL management 2. Ortho: left distal femur gurjit-prosthetic fracture, NWB LLE, extension brace to be worn at all times, ortho consulted 2. Neuro: avoid delirogenic meds 3. Cardiac: pmh Afib with recent GI bleed off AC with dual chamber PM, spiron olactone on hold due to recent Hyperkalemia, c/u beta-qiana, currently off LAsix while receive gently hydration for TYLER on CKD- medicine consulted to assist with management -HLD- c/u Lopid at lower renal dosing 4. Reps: pmh pulm HTN, encourage incentive spirometry, monitor for infection 5. Endo: Hypothyroid- c/u synthroid 6. GI: recent GI bleed, c/u Prilosec 40 BID and sucralfate with meals, optimize bowel meds - bloody BM on 04/13/19, c/u to monitor and transfuse blood x2 units 7. Renal: TYLER on CKD, s/p NS IVF hydration per d/c recs, renal consulted, recs appreciated- Gifford removed -US 04/09/19 without hydronephrosis -elevated aluminum lelves, will defer to renal for treatment 8. DVT ppx: hepain and TEDs to RLE 9. Pain: Tylenol and oxycodone prn, ice 10. Skin: zinc to sacrum 11. Heme: anemia of chronic disease in setting of blood loss due to recent surgery- Hgb 7.8 04/14/19 s/p 2 units, today 9.5 -monitor for bloody bowel movements, stable today - c/u Venofr per renal 11. Dispo: 04/25/19 to home, progressing toward goals Allergies Coded Allergies: latex (Verified Allergy, Severe, Anaphylaxis, 10/30/18) [place] (Verified Allergy, Unknown, 10/30/18) codeine (Verified Adverse Reaction, Intermediate, Dizziness, Blurred Vision, Headache, Dry Mouth, 10/30/18) Vital Signs Vital Signs Date Time Temp Pulse Resp B/P (MAP) Pulse Ox O2 Delivery O2 Flow Rate FiO2 04/15/19 08:37 73 131/63 04/15/19 06:00 98.3 17 96 Laboratory Data CBC/BMP Laboratory Tests 04/15/19 06:42 Red Blood Count 2.98 L, Mean Corpuscular Volume 99.0 H, Mean Corpuscular Hemoglobin 31.9, Mean Corpuscular Hemoglobin Concent 32.2, Red Cell Distribution Width 20.3 H Labs 24H Laboratory Tests 2 04/14/19 17:13: Bedside Glucose (Misc Panel) 171H 04/14/19 20:19: Bedside Glucose (Misc Panel) 145H 04/15/19 05:37: Bedside Glucose (Misc Panel) 158H 04/15/19 06:42: Immature Granulocyte % (Auto) , Nucleated Red Blood Cells % (auto) 1.5H, Neutrophils 73H, Band Neutrophils 1, Lymphocytes (Manual) 14L, Monocytes (Manual) 2, Eosinophils (Manual) 8H, Metamyelocytes 1H, Myelocytes 1H, Platelet Estimate NORMAL, Polychromasia 1+, Anisocytosis 3+, Macrocytosis 1+ 04/15/19 11:50: Bedside Glucose (Misc Panel) 221H Current Medications Current Medications Current Medications Medications (Trade) Dose Ordered Sig/Kj Route PRN Reason Start Time Stop Time Status Last Admin Dose Admin Acetaminophen (Tylenol Tab) 1,000 mg TID PO 04/09/19 21:00 04/15/19 08:37 Albuterol/ Ipratropium (Duoneb (Ipr 0.5mg/Alb 2.5mg)) 3 ml Q4HP PRN NEB SOB/WHEEZING 04/09/19 17:00 Allopurinol (Zyloprim) 300 mg QHS PO 04/09/19 21:00 04/14/19 20:23 Aspirin (Ecotrin) 81 mg DAILY PO 04/09/19 09:00 04/15/19 08:35 Bisacodyl (Dulcolax Suppository) 10 mg DAILYPRN PRN [place] CONSTIPATION 04/09/19 17:00 Bisacodyl (Dulcolax Suppository) 10 mg ONCE PRN TX 2 hrs after lactulose if no BM 04/11/19 14:00 04/11/19 16:00 DC Calcium Carbonate (Oscal) 500 mg BID PO 04/09/19 21:00 04/15/19 08:35 Dextrose (Dextrose 50%) 25 ml ASDIRECTED PRN IV SEE LABEL COMMENTS 04/09/19 17:30 Docusate Sodium (Colace) 100 mg BID PO 04/09/19 21:00 04/15/19 08:37 Ferrous Gluconate (Fergon) 324 mg BID PO 04/09/19 21:00 04/15/19 08:35 Fluticasone Propionate (Flonase 0.05% Nasal [place]) 2 spray DAILY NARES 04/10/19 09:00 04/15/19 08:38 Gemfibrozil (Lopid) 300 mg DAILY@1730 PO 04/10/19 17:30 04/14/19 17:32 Gemfibrozil (Lopid) 600 mg BID@0730,1730 PO 04/09/19 17:30 04/10/19 11:57 DC 04/10/19 08:48 Gemfibrozil (Lopid) 600 mg DAILY@0730 PO 04/11/19 07:30 04/15/19 08:35 Glucagon (Glucagon) 1 mg ASDIRECTED PRN SC SEE LABEL COMMENTS 04/09/19 17:30 Glucose (Glucose) 16 GM ASDIRECTED PRN PO SEE LABEL COMMENTS 04/09/19 17:30 Heparin Sodium (Porcine) (Heparin) 5,000 units Q12H SC 04/09/19 21:00 04/15/19 08:34 Home Med (Med Rec Complete!) ASDIRECTED XX 04/09/19 15:30 04/09/19 15:30 DC Insulin Human Lispro (HumaLOG INSULIN) SEE PROTOCOL TABLE AC SC 04/09/19 17:30 04/15/19 12:17 Insulin Human Lispro (HumaLOG INSULIN) SEE PROTOCOL TABLE QHS SC 04/09/19 21:00 Iron 200 mg/ Sodium Chloride 110 ml @ 110 mls/hr DAILY IV 04/11/19 09:00 04/14/19 08:59 DC 04/13/19 09:00 Levothyroxine Sodium (Synthroid) 37.5 mcg DAILY@06 PO 04/10/19 06:00 04/15/19 06:14 Loratadine (Claritin) 10 mg DAILY PO 04/10/19 09:00 04/15/19 08:34 Magnesium Hydroxide (Milk Of Magnesia) 30 ml DAILYPRN PRN PO CONSTIPATION 04/09/19 17:00 Magnesium Oxide (Mag-Ox) 400 mg BID PO 04/09/19 21:00 04/15/19 08:35 Metoprolol Succinate (TopROL XL) 100 mg DAILY PO 04/10/19 09:00 04/15/19 08:37 Omeprazole (PriLOSEC) 40 mg BID PO 04/09/19 21:00 04/15/19 08:34 Oxycodone HCl (Roxicodone, Oxyir) 5 mg Q4HP PRN PO PAIN 04/09/19 17:00 04/10/19 13:12 Senna (Senokot) 1 tab QHS PO 04/09/19 21:00 04/14/19 20:24 Sucralfate (Carafate) 1 gm ACHS PO 04/09/19 17:30 04/15/19 12:17 Vitamin D (Vitamin D) 2,000 units DAILY PO 04/10/19 09:00 04/15/19 08:34 Zinc Oxide (Boudreauxs Butt Paste) sacrum BID TOP 04/10/19 21:00 04/15/19 08:38 UBALDO GORMAN MD Apr 15, 2019 14:08
--- NOTE | 2019-04-15 15:48 | IPNPDOC ---
Text Note Date of Service The patient was seen on 04/15/19. NOTE SUBJECTIVE: c/o pain in the left LE at the site of fracture however says its getting more bearable. Working with PT. Does say that she often sees broght red blood with her stools which she attributes to hemorrhoids. No Tamika. OBJECTIVE: Vitals: pls see below. I/O and weight : reviewed, pls see below General: The patient is awake, alert, oriented to person and place, able to converse appropriately, in no respiratory distress or use of respiratory accessory muscles. HEENT: Normocephalic, atarumatic, anicteric eyes, moist mucous membranes. Neck No JVD, no thyromegaly Lungs: Clear to auscultation. No wheezing, rales or rhonchi. Heart: S1 and S2. Sinus rhythm. Systolic murmur present Abdomen: Soft. Obese. Nontender. Nondistended. bowel sounds normal. Skin color is pink, warm, dry. Extremities: left leg brace flexed no edema. LABORATORY DATA:reviewed ASSESSMENT AND PLAN: This is an 83-year-old with history of chronic kidney disease (CKD) stage 3, atrial fibrillation not anticoagulation due to history of GI bleed and usually on aspirin, congestive heart failure with severe pulmonary hypertension, dyslipidemia, hypothyroidism, peptic ulcer disease, reflux, rheumatoid arthritis, GI bleed with hypotensive shock in 10/2018, diabetes with recurrent hyperglycemia, hypothyroidism, mitral regurgitation, severe tricuspid regurgitation, history of complete AV block with pacemaker, essential hypertension, and anemia due to chronic kidney disease, admitted due to a fall with resulting left distal femoral fracture status post ORIF who had hyperkalemia and Spironolactone had been discontinued. Acute on chronic renal failure, improved to baseline. due to acute urinary retention patient's diuretics, Lasix and Spironolactone, have been discontinued. reviewed ins and outs, Nephrology managing pt's fluid balance. Left distal femoral fracture s/p status post mechanical fall. On ASA and heparin sq, pain mgt, and activity per orthopedic surgery. PT/OT/ARU attending. pain control with oxycodone and tylenol. Anemia acute on chronic may be due to TYLER on CKD, post fracture with loss in hematoma and post surgical, iatrogenic from blood draws, s/p 2 units of PRBC transfusion Received IV Iron Paroxysmal Atrial fibrillation, H/O Complete A-V block with PPM in place on metoprolol 100 daily. Rate controlled. No anticoagulation due to recent GI bleed. only on ASA. Vitamin D deficiency, on calcium and vitamin D replacement. Type 2 diabetes, on hyperglycemic protocol, insulin sliding scale, consistent carbohydrate diet. GERD with History of GI bleed, H/O hemetemesis and tamika found to have gastritis and duodenitis in october 18 2018 on Carafate and proton pump inhibitor on Prilosec 40 twice a day. Congestive heart failure with preserved LV systolic function with valvular heart disease moderate mitral regurg and severe tricuspid regurgitation. Also has moderate to severe pulmonary hypertension still remains hypervolemic. will give Lasix prn. Valvular heart disease --Mitral regurgitation moderate, severe tricuspid regurgitation Severe pulmonary hypertension with right heart failure. Diverticulosis and internal hemorrhoids no issues at this point continue hydrocortisone cream prn Rheumatoid arthritis , osteoarthritis and osteoporosis Was on HCQS now not on medication list. oxycodone and tylenol Gout on allopurinol Hyperlipidemia continue gemfibrosil Hypothyroidism. Continue Synthroid. Morbid obesity with pulmonary hypertension and features of right heart failure. complicating care. VS,Fishbone, I+O VS, Fishbone, I+O Laboratory Tests 04/15/19 06:42 Red Blood Count 2.98 L, Mean Corpuscular Volume 99.0 H, Mean Corpuscular Hemoglobin 31.9, Mean Corpuscular Hemoglobin Concent 32.2, Red Cell Distribution Width 20.3 H Vital Signs Date Time Temp Pulse Resp B/P (MAP) Pulse Ox O2 Delivery O2 Flow Rate FiO2 04/15/19 14:00 97.9 70 18 140/63 (88) 98 I&O- Last 24 Hours up to 6 AM 04/15/19 06:00 Intake Total 1125 ml Balance 1125 ml MATEUSZ CARTAGENA MD Apr 15, 2019 15:48
[2019-04-15 20:00] VITALS: BP 131/61
[2019-04-15] MEDS: allopurinoL 300 MG TAB PO SCH (21:48)
[2019-04-15] MEDS: SENNA 8.6 MG TAB (SENOKOT) PO SCH (21:48)
[2019-04-16] MEDS: LEVOTHYROXINE 37.5MCG PER 1/2TAB (0.0375MG) PO SCH (05:42)
[2019-04-16 06:00] VITALS: BP 145/69
[2019-04-16 07:02] LABS: HEMATOCRIT 29.6 % (36.0-47.0); HEMOGLOBIN 9.3 g/dl (12.0-15.5); MEAN CORPUSCULAR HEMOGLOBIN 31.5 pg (27.0-33.0); MEAN CORPUSCULAR HGB CONC 31.4 g/dl (32.0-36.5); MEAN CORPUSCULAR VOLUME 100.3 fl (80.0-96.0); PLATELET COUNT, AUTOMATED 274 10^3/uL (150-450); RED BLOOD COUNT 2.95 10^6/uL (4.00-5.40); WHITE BLOOD COUNT 6.3 10^3/uL (4.0-10.0)
[2019-04-16 07:28] LABS: CALCIUM LEVEL 8.8 MG/DL (8.8-10.2); CREATININE FOR GFR 1.43 MG/DL (0.55-1.30); GLOMERULAR FILTRATION RATE 37.5 (>32)
[2019-04-16 07:32] LABS: ANISOCYTOSIS 2+; BASOPHILS 4 % (0-1); EOSINOPHILS 8 % (0-3); HYPOCHROMASIA 2+; LYMPHOCYTES 13 % (16-44); METAMYELOCYTES 3 % (0-0); MONOCYTES 1 % (0-5); MYELOCYTES 3 % (0-0); NEUTROPHILS 66 % (28-66); PLATELET ESTIMATE NORMAL (NORMAL); POLYCHROMASIA 1+
[2019-04-16] MEDS: OYSTER SHELL CALCIUM 500 MG TAB PO SCH ×2 (08:50→21:26)
[2019-04-16] MEDS: ASPIRIN 81 MG ENTERIC TAB PO SCH (08:50)
[2019-04-16] MEDS: METOPROLOL SUCC (TopROL XL) 100MG *XL* TAB PO SCH (08:51)
[2019-04-16] MEDS: SUCRALFATE 1 GM TAB PO SCH ×4 (08:51→21:26)
[2019-04-16] MEDS: FERROUS GLUCONATE 324 MG TAB PO SCH ×2 (08:51→21:26)
[2019-04-16] MEDS: DOCUSATE SODIUM 100 MG CAP PO SCH ×2 (08:51→21:26)
[2019-04-16] MEDS: HEPARIN SOD (PORCINE) 5000 UNITS/ML VIAL SC SCH ×2 (08:52→21:26)
[2019-04-16] MEDS: ACETAMINOPHEN 500 MG TAB PO SCH ×3 (08:52→21:27)
[2019-04-16] MEDS: HumaLOG INSULIN (NovoLOG) PER UNIT SC SCH ×4 (08:52→21:28)
[2019-04-16] MEDS: gemfibroziL 600 MG TAB PO SCH ×2 (08:52→17:28)
[2019-04-16] MEDS: FLUTICASONE PROP 0.05% NASAL SPRAY 16 GM (FLONASE) NARES SCH (08:53)
[2019-04-16] MEDS: MAGNESIUM OXIDE 400 MG TAB (MAG-OX) PO SCH ×2 (08:53→21:26)
[2019-04-16] MEDS: VITAMIN D 1,000 INTERNATIONAL UNITS TABLET PO SCH (08:53)
[2019-04-16] MEDS: LORATADINE 10 MG TAB PO SCH (08:53)
[2019-04-16] MEDS: OMEPRAZOLE 20 MG CAP PO SCH ×2 (08:53→21:26)
[2019-04-16] MEDS: BOUDREAUX'S BUTT PASTE TOP SCH (08:54)
[2019-04-16 14:00] VITALS: BP 129/62
--- NOTE | 2019-04-16 18:58 | IPN ---
DATE: 04/16/2019 Mrs. Doty is seen this morning during physical therapy. She is sitting in the wheelchair. She is feeling much better, however, still weak and has complaint of pain in her left leg. No dyspnea or chest pain. PHYSICAL EXAMINATION: Temperature 97.8 degrees Fahrenheit, heart rate 70 per minute and respiratory rate 18 per minute. Blood pressure 145/69 mmHg and oxygen saturation 97% on room air. Head is atraumatic. Neck is supple and without any significant jugular venous distention (JVD) sitting upright. Heart sounds regular. Lungs with slightly diminished breath sounds. Abdomen is obese, soft and nontender. Extremities without any cyanosis or clubbing. LABORATORY DATA: Today's laboratories show sodium 138, potassium 4.0, chloride 108, CO2 21, BUN 53 and creatinine 1.43. Hemoglobin is 9.3 and hematocrit 29.6. PROBLEMS: 1. Acute kidney injury, superimposed on chronic kidney disease. Kidney function has improved significantly almost back to baseline. Electrolytes are stable. 2. Anemia. She had acute blood loss anemia which improved after transfusion of two units of packed red blood cells (RBCs). She has also received intravenous iron. 3. Hypertension. Blood pressure seems to be reasonably well-controlled. No changes are being made today.
[2019-04-16 20:00] VITALS: BP 136/86
[2019-04-16] MEDS: SENNA 8.6 MG TAB (SENOKOT) PO SCH (21:26)
[2019-04-16] MEDS: allopurinoL 300 MG TAB PO SCH (21:26)
[2019-04-17 04:00] VITALS: BP 151/71
[2019-04-17] MEDS: LEVOTHYROXINE 37.5MCG PER 1/2TAB (0.0375MG) PO SCH (05:15)
[2019-04-17] MEDS: HumaLOG INSULIN (NovoLOG) PER UNIT SC SCH ×4 (08:17→20:37)
[2019-04-17] MEDS: SUCRALFATE 1 GM TAB PO SCH ×4 (08:21→20:36)
[2019-04-17] MEDS: DOCUSATE SODIUM 100 MG CAP PO SCH ×2 (08:21→20:36)
[2019-04-17] MEDS: gemfibroziL 600 MG TAB PO SCH ×2 (08:21→17:37)
[2019-04-17] MEDS: ASPIRIN 81 MG ENTERIC TAB PO SCH (08:21)
[2019-04-17] MEDS: HEPARIN SOD (PORCINE) 5000 UNITS/ML VIAL SC SCH ×2 (08:21→20:35)
[2019-04-17] MEDS: OYSTER SHELL CALCIUM 500 MG TAB PO SCH ×2 (08:22→20:36)
[2019-04-17] MEDS: FERROUS GLUCONATE 324 MG TAB PO SCH ×2 (08:22→20:36)
[2019-04-17] MEDS: METOPROLOL SUCC (TopROL XL) 100MG *XL* TAB PO SCH (08:22)
[2019-04-17] MEDS: MAGNESIUM OXIDE 400 MG TAB (MAG-OX) PO SCH ×2 (08:22→20:35)
[2019-04-17] MEDS: ACETAMINOPHEN 500 MG TAB PO SCH ×3 (08:22→20:36)
[2019-04-17] MEDS: VITAMIN D 1,000 INTERNATIONAL UNITS TABLET PO SCH (08:22)
[2019-04-17] MEDS: OMEPRAZOLE 20 MG CAP PO SCH ×2 (08:22→20:35)
[2019-04-17] MEDS: LORATADINE 10 MG TAB PO SCH (08:22)
[2019-04-17] MEDS: FLUTICASONE PROP 0.05% NASAL SPRAY 16 GM (FLONASE) NARES SCH (08:23)
--- NOTE | 2019-04-17 12:51 | IPNPDOC ---
PM&R Progress Note DATE OF SERVICE: Apr 16, 2019 [employer] Progress Note Subjective: Patient reporting she feels ok, she has developed left foot and lower calf swelling. REVIEW OF SYSTEMS: The following is a completed review of systems and has been reviewed. Review of systems otherwise unremarkable. PAIN: Patient self reports left leg pain EYES: No recent vision changes EARS, NOSE, & THROAT: No throat pain, or dysphagia, or rhinorrhea CARDIOVASCULAR: Denies chest pain or palpitations PULMONARY: Denies shortness of breath GASTROINTESTINAL:+constipation (resolve) GENITOURINARY: denies dysuria MUSCULOSKELETAL: left distal femur fracture NEUROLOGICAL:no seizure activity/focal tremor HEMATOLOGICAL:+anemia SKIN: left knee incision, sacral rash PSYCHIATRIC: Unremarkable All other review of systems found to be negative. PHYSICAL EXAMINATION: VITAL SIGNS: Please see below. GENERAL: Pleasant and cooperative. No acute distress. HEENT: PERRL. Extraocular movements intact. Clear conjunctiva CARDIOVASCULAR: Regular rate and rhythm. No murmurs, rubs, or gallops LUNGS: Clear to auscultation bilaterally. No wheezes. No rhonchi ABDOMEN: Soft, nontender, nondistended. Positive bowel sounds. Normal active bowel sounds NEUROLOGICAL: Alert and oriented times three. Cranial nerves II through XII grossly intact. Sensation grossly intact in all 4 extremities EXTREMITIES: 5\5 strength bilateral upper extremities. 5\5 strength right lower extremity. 4/5 strength in left lowerankle DF and EHL and PF (limited exam). LLE edematous SKIN: left knee incision not examined, sacrum with mild erythema ASSESSMENT:83-year-old F with past medical history of CHF, pul HTN, CKD who presents status post fall with gurjit-prosthetic distal femur fracture PLAN: 1. PT- strengthen, maintain ROM and stretch RLE, work on balance and household ambulation with RW while NWB for LLE OT- stengthen, stretch, maintain ROM bilat UE, work on ADL management 2. Ortho: left distal femur gurjit-prosthetic fracture, NWB LLE, extension brace to be worn at all times, ortho consulted 2. Neuro: avoid delirogenic meds 3. Cardiac: pmh Afib with recent GI bleed off AC with dual chamber PM, spironolactone on hold due to recent Hyperkalemia, c/u beta-qiana, currently off LAsix while receive gently hydration for TYLER on CKD- medicine consulted to assist with management -HLD- c/u Lopid at lower renal dosing 4. Reps: pmh pulm HTN, encourage incentive spirometry, monitor for infection 5. Endo: Hypothyroid- c/u synthroid 6. GI: recent GI bleed, c/u Prilosec 40 BID and sucralfate with meals, optimize bowel meds - bloody BM on 04/13/19, c/u to monitor and transfuse blood x2 units 7. Renal: TYLER on CKD, s/p NS IVF hydration per d/c recs, renal consulted, recs appreciated- Gifford removed -US 04/09/19 without hydronephrosis -elevated aluminum levels, will defer to renal for treatment -patient appears fluid overloaded, will defer to renal for diuretics in setting of TYLER 8. DVT ppx: hepain and TEDs to RLE 9. Pain: Tylenol and oxycodone prn, ice 10. Skin: zinc to sacrum 11. Heme: anemia of chronic disease in setting of blood loss due to recent surgery- Hgb 7.8 04/14/19 s/p 2 units, improved to around 9, -monitor for bloody bowel movements, stable today - c/u Venofr per renal 12. Skin: acewrap left foot up to mid-calf and elevate 11. Dispo: 04/25/19 to home, progressing toward goals Allergies Coded Allergies: latex (Verified Allergy, Severe, Anaphylaxis, 10/30/18) [place] (Verified Allergy, Unknown, 10/30/18) codeine (Verified Adverse Reaction, Intermediate, Dizziness, Blurred Vision, Headache, Dry Mouth, 10/30/18) Vital Signs Vital Signs Date Time Temp Pulse Resp B/P (MAP) Pulse Ox O2 Delivery O2 Flow Rate FiO2 04/17/19 08:22 69 151/71 04/17/19 04:00 97.4 18 97 Laboratory Data CBC/BMP Labs 24H Laboratory Tests 2 04/16/19 16:37: Bedside Glucose (Misc Panel) 164H 04/16/19 19:18: Bedside Glucose (Misc Panel) 260H 04/17/19 05:20: Bedside Glucose (Misc Panel) 158H 04/17/19 11:48: Bedside Glucose (Misc Panel) 152H 04/17/19 12:08: Current Medications Current Medications Current Medications Medications (Trade) Dose Ordered Sig/Kj Route PRN Reason Start Time Stop Time Status Last Admin Dose Admin Acetaminophen (Tylenol Tab) 1,000 mg TID PO 04/09/19 21:00 04/17/19 08:22 Albuterol/ Ipratropium (Duoneb (Ipr 0.5mg/Alb 2.5mg)) 3 ml Q4HP PRN NEB SOB/WHEEZING 04/09/19 17:00 Allopurinol (Zyloprim) 300 mg QHS PO 04/09/19 21:00 04/16/19 21:26 Aspirin (Ecotrin) 81 mg DAILY PO 04/09/19 09:00 04/17/19 08:21 Bisacodyl (Dulcolax Suppository) 10 mg DAILYPRN PRN [place] CONSTIPATION 04/09/19 17:00 Bisacodyl (Dulcolax Suppository) 10 mg ONCE PRN [place] 2 hrs after lactulose if no BM 04/11/19 14:00 04/11/19 16:00 DC Calcium Carbonate (Oscal) 500 mg BID PO 04/09/19 21:00 04/17/19 08:22 Dextrose (Dextrose 50%) 25 ml ASDIRECTED PRN IV SEE LABEL COMMENTS 04/09/19 17:30 Docusate Sodium (Colace) 100 mg BID PO 04/09/19 21:00 04/17/19 08:21 Ferrous Gluconate (Fergon) 324 mg BID PO 04/09/19 21:00 04/17/19 08:22 Fluticasone Propionate (Flonase 0.05% Nasal [place]) 2 spray DAILY NARES 04/10/19 09:00 04/17/19 08:23 Gemfibrozil (Lopid) 300 mg DAILY@1730 PO 04/10/19 17:30 04/16/19 17:28 Gemfibrozil (Lopid) 600 mg BID@0730,1730 PO 04/09/19 17:30 04/10/19 11:57 DC 04/10/19 08:48 Gemfibrozil (Lopid) 600 mg DAILY@0730 PO 04/11/19 07:30 04/17/19 08:21 Glucagon (Glucagon) 1 mg ASDIRECTED PRN SC SEE LABEL COMMENTS 04/09/19 17:30 Glucose (Glucose) 16 GM ASDIRECTED PRN PO SEE LABEL COMMENTS 04/09/19 17:30 Heparin Sodium (Porcine) (Heparin) 5,000 units Q12H SC 04/09/19 21:00 04/17/19 08:21 Home Med (Med Rec Complete!) ASDIRECTED XX 04/09/19 15:30 04/09/19 15:30 DC Insulin Human Lispro (HumaLOG INSULIN) SEE PROTOCOL TABLE AC SC 04/09/19 17:30 04/17/19 12:11 Insulin Human Lispro (HumaLOG INSULIN) SEE PROTOCOL TABLE QHS SC 04/09/19 21:00 04/16/19 21:28 Iron 200 mg/ Sodium Chloride 110 ml @ 110 mls/hr DAILY IV 04/11/19 09:00 04/14/19 08:59 DC 04/13/19 09:00 Levothyroxine Sodium (Synthroid) 37.5 mcg DAILY@06 PO 04/10/19 06:00 04/17/19 05:15 Loratadine (Claritin) 10 mg DAILY PO 04/10/19 09:00 04/17/19 08:22 Magnesium Hydroxide (Milk Of Magnesia) 30 ml DAILYPRN PRN PO CONSTIPATION 04/09/19 17:00 Magnesium Oxide (Mag-Ox) 400 mg BID PO 04/09/19 21:00 04/17/19 08:22 Metoprolol Succinate (TopROL XL) 100 mg DAILY PO 04/10/19 09:00 04/17/19 08:22 Miscellaneous (Unresolved Clarification Entry) SEE LABEL COMMENTS DAILY XX 04/15/19 09:00 04/16/19 07:22 DC Miscellaneous (Unresolved Clarification Entry) SEE LABEL COMMENTS DAILY XX 04/16/19 09:00 04/16/19 11:25 DC Omeprazole (PriLOSEC) 40 mg BID PO 04/09/19 21:00 04/17/19 08:22 Oxycodone HCl (Roxicodone, Oxyir) 5 mg Q4HP PRN PO PAIN 04/09/19 17:00 04/10/19 13:12 Senna (Senokot) 1 tab QHS PO 04/09/19 21:00 04/16/19 21:26 Sucralfate (Carafate) 1 gm ACHS PO 04/09/19 17:30 04/17/19 12:10 Vitamin D (Vitamin D) 2,000 units DAILY PO 04/10/19 09:00 04/17/19 08:22 Zinc Oxide (Boudreauxs Butt Paste) sacrum BID TOP 04/10/19 21:00 04/16/19 11:29 DC 04/15/19 21:48 UBALDO GORMAN MD Apr 17, 2019 12:51
--- NOTE | 2019-04-17 12:52 | IPNPDOC ---
PM&R Progress Note DATE OF SERVICE: Apr 17, 2019 [employer] Faculty Member Progress Note Subjective: Patient with continued dyspnea at rest with left LE edema. She denies having worsening pain and states her shortness of breath is not unusual. REVIEW OF SYSTEMS: The following is a completed review of systems and has been reviewed. Review of systems otherwise unremarkable. PAIN: Patient self reports left leg pain EYES: No recent vision changes EARS, NOSE, & THROAT: No throat pain, or dysphagia, or rhinorrhea CARDIOVASCULAR: Denies chest pain or palpitations PULMONARY: Denies shortness of breath GASTROINTESTINAL:+constipation (resolve) GENITOURINARY: denies dysuria MUSCULOSKELETAL: left distal femur fracture NEUROLOGICAL:no seizure activity/focal tremor HEMATOLOGICAL:+anemia SKIN: left knee incision, sacral rash PSYCHIATRIC: Unremarkable All other review of systems found to be negative. PHYSICAL EXAMINATION: VITAL SIGNS: Please see below. GENERAL: Pleasant and cooperative. No acute distress. HEENT: PERRL. Extraocular movements intact. Clear conjunctiva CARDIOVASCULAR: Regular rate and rhythm. No murmurs, rubs, or gallops LUNGS: Clear to auscultation bilaterally. No wheezes. No rhonchi ABDOMEN: Soft, nontender, nondistended. Positive bowel sounds. Normal active bowel sounds NEUROLOGICAL: Alert and oriented times three. Cranial nerves II through XII grossly intact. Sensation grossly intact in all 4 extremities EXTREMITIES: 5\5 strength bilateral upper extremities. 5\5 strength right lower extremity. 4/5 strength in left lowerankle DF and EHL and PF (limited exam). LLE edematous SKIN: left knee incision not examined, sacrum with mild erythema ASSESSMENT:83-year-old F with past medical history of CHF, pul HTN, CKD who presents status post fall with gurjit-prosthetic distal femur fracture PLAN: 1. PT- strengthen, maintain ROM and stretch RLE, work on balance and household ambulation with RW while NWB for LLE OT- stengthen, stretch, maintain ROM bilat UE, work on ADL management 2. Ortho: left distal femur gurjit-prosthetic fracture, NWB LLE, extension brace to be worn at all times, ortho consulted 2. Neuro: avoid delirogenic meds 3. Cardiac: pmh Afib with recent GI bleed off AC with dual chamber PM, spironolactone on hold due to recent Hyperkalemia, c/u beta-qiana, currently off LAsix while receive gently hydration for TYLER on CKD- medicine consulted to assist with management -HLD- c/u Lopid at lower renal dosing 4. Reps: pmh pulm HTN, encourage incentive spirometry, monitor for infection 5. Endo: Hypothyroid- c/u synthroid 6. GI: recent GI bleed, c/u Prilosec 40 BID and sucralfate with meals, optimize bowel meds - bloody BM on 04/13/19, c/u to monitor and transfuse blood x2 units 7. Renal: TYLER on CKD, s/p NS IVF hydration per d/c recs, renal consulted, recs appreciated- Gifford removed -US 04/09/19 without hydronephrosis -elevated aluminum levels, will defer to renal for treatment -patient appears fluid overloaded, will give 1 x dose 40 IV and monitor [employer], 8. DVT ppx: hepain and TEDs to RLE 9. Pain: Tylenol and oxycodone prn, ice 10. Skin: zinc to sacrum 11. Heme: anemia of chronic disease in setting of blood loss due to recent surgery- Hgb 7.8 04/14/19 s/p 2 units, improved to around 9, -monitor for bloody bowel movements, stable today - c/u Venofr per renal 12. Skin: acewrap left foot up to mid-calf and elevate 11. Dispo: 04/25/19 to home, progressing toward goals Allergies Coded Allergies: latex (Verified Allergy, Severe, Anaphylaxis, 10/30/18) [place] (Verified Allergy, Unknown, 10/30/18) codeine (Verified Adverse Reaction, Intermediate, Dizziness, Blurred Vision, Headache, Dry Mouth, 10/30/18) Vital Signs Vital Signs Date Time Temp Pulse Resp B/P (MAP) Pulse Ox O2 Delivery O2 Flow Rate FiO2 04/17/19 08:22 69 151/71 04/17/19 04:00 97.4 18 97 Laboratory Data CBC/BMP Labs 24H Laboratory Tests 2 04/16/19 16:37: Bedside Glucose (Misc Panel) 164H 04/16/19 19:18: Bedside Glucose (Misc Panel) 260H 04/17/19 05:20: Bedside Glucose (Misc Panel) 158H 04/17/19 11:48: Bedside Glucose (Misc Panel) 152H 04/17/19 12:08: Current Medications Current Medications Current Medications Medications (Trade) Dose Ordered Sig/Kj Route PRN Reason Start Time Stop Time Status Last Admin Dose Admin Acetaminophen (Tylenol Tab) 1,000 mg TID PO 04/09/19 21:00 04/17/19 08:22 Albuterol/ Ipratropium (Duoneb (Ipr 0.5mg/Alb 2.5mg)) 3 ml Q4HP PRN NEB SOB/WHEEZING 04/09/19 17:00 Allopurinol (Zyloprim) 300 mg QHS PO 04/09/19 21:00 04/16/19 21:26 Aspirin (Ecotrin) 81 mg DAILY PO 04/09/19 09:00 04/17/19 08:21 Bisacodyl (Dulcolax Suppository) 10 mg DAILYPRN PRN [place] CONSTIPATION 04/09/19 17:00 Bisacodyl (Dulcolax Suppository) 10 mg ONCE PRN [place] 2 hrs after lactulose if no BM 04/11/19 14:00 04/11/19 16:00 DC Calcium Carbonate (Oscal) 500 mg BID PO 04/09/19 21:00 04/17/19 08:22 Dextrose (Dextrose 50%) 25 ml ASDIRECTED PRN IV SEE LABEL COMMENTS 04/09/19 17:30 Docusate Sodium (Colace) 100 mg BID PO 04/09/19 21:00 04/17/19 08:21 Ferrous Gluconate (Fergon) 324 mg BID PO 04/09/19 21:00 04/17/19 08:22 Fluticasone Propionate (Flonase 0.05% Nasal [place]) 2 spray DAILY NARES 04/10/19 09:00 04/17/19 08:23 Gemfibrozil (Lopid) 300 mg DAILY@1730 PO 04/10/19 17:30 04/16/19 17:28 Gemfibrozil (Lopid) 600 mg BID@0730,1730 PO 04/09/19 17:30 04/10/19 11:57 DC 04/10/19 08:48 Gemfibrozil (Lopid) 600 mg DAILY@0730 PO 04/11/19 07:30 04/17/19 08:21 Glucagon (Glucagon) 1 mg ASDIRECTED PRN SC SEE LABEL COMMENTS 04/09/19 17:30 Glucose (Glucose) 16 GM ASDIRECTED PRN PO SEE LABEL COMMENTS 04/09/19 17:30 Heparin Sodium (Porcine) (Heparin) 5,000 units Q12H SC 04/09/19 21:00 04/17/19 08:21 Home Med (Med Rec Complete!) ASDIRECTED XX 04/09/19 15:30 04/09/19 15:30 DC Insulin Human Lispro (HumaLOG INSULIN) SEE PROTOCOL TABLE AC SC 04/09/19 17:30 04/17/19 12:11 Insulin Human Lispro (HumaLOG INSULIN) SEE PROTOCOL TABLE QHS SC 04/09/19 21:00 04/16/19 21:28 Iron 200 mg/ Sodium Chloride 110 ml @ 110 mls/hr DAILY IV 04/11/19 09:00 04/14/19 08:59 DC 04/13/19 09:00 Levothyroxine Sodium (Synthroid) 37.5 mcg DAILY@06 PO 04/10/19 06:00 04/17/19 05:15 Loratadine (Claritin) 10 mg DAILY PO 04/10/19 09:00 04/17/19 08:22 Magnesium Hydroxide (Milk Of Magnesia) 30 ml DAILYPRN PRN PO CONSTIPATION 04/09/19 17:00 Magnesium Oxide (Mag-Ox) 400 mg BID PO 04/09/19 21:00 04/17/19 08:22 Metoprolol Succinate (TopROL XL) 100 mg DAILY PO 04/10/19 09:00 04/17/19 08:22 Miscellaneous (Unresolved Clarification Entry) SEE LABEL COMMENTS DAILY XX 04/15/19 09:00 04/16/19 07:22 DC Miscellaneous (Unresolved Clarification Entry) SEE LABEL COMMENTS DAILY XX 04/16/19 09:00 04/16/19 11:25 DC Omeprazole (PriLOSEC) 40 mg BID PO 04/09/19 21:00 04/17/19 08:22 Oxycodone HCl (Roxicodone, Oxyir) 5 mg Q4HP PRN PO PAIN 04/09/19 17:00 04/10/19 13:12 Senna (Senokot) 1 tab QHS PO 04/09/19 21:00 04/16/19 21:26 Sucralfate (Carafate) 1 gm ACHS PO 04/09/19 17:30 04/17/19 12:10 Vitamin D (Vitamin D) 2,000 units DAILY PO 04/10/19 09:00 04/17/19 08:22 Zinc Oxide (Boudreauxs Butt Paste) sacrum BID TOP 04/10/19 21:00 04/16/19 11:29 DC 04/15/19 21:48 UBALDO GORMAN MD Apr 17, 2019 12:52
[2019-04-17 13:00] LABS: CALCIUM LEVEL 9.4 MG/DL (8.8-10.2); CREATININE FOR GFR 1.33 MG/DL (0.55-1.30); GLOMERULAR FILTRATION RATE 40.8 (>32); POTASSIUM SERUM 4.2 MEQ/L (3.5-5.1)
[2019-04-17 14:00] VITALS: BP 149/71
[2019-04-17] MEDS ORDERED: FUROSEMIDE 40 MG/4 ML VIAL (J1940) IV ONE (15:00)
[2019-04-17 19:57] VITALS: BP 150/67
[2019-04-17] MEDS: SENNA 8.6 MG TAB (SENOKOT) PO SCH (20:35)
[2019-04-17] MEDS: allopurinoL 300 MG TAB PO SCH (20:36)
[2019-04-18] MEDS: LEVOTHYROXINE 37.5MCG PER 1/2TAB (0.0375MG) PO SCH (05:27)
[2019-04-18 05:40] VITALS: BP 148/68
[2019-04-18 07:14] LABS: CALCIUM LEVEL 8.5 MG/DL (8.8-10.2); CREATININE FOR GFR 1.46 MG/DL (0.55-1.30); GLOMERULAR FILTRATION RATE 36.6 (>32); POTASSIUM SERUM 4.3 MEQ/L (3.5-5.1)
[2019-04-18] MEDS: SUCRALFATE 1 GM TAB PO SCH ×4 (07:57→20:32)
[2019-04-18] MEDS: HumaLOG INSULIN (NovoLOG) PER UNIT SC SCH ×4 (07:57→20:34)
[2019-04-18] MEDS: gemfibroziL 600 MG TAB PO SCH ×2 (07:57→17:02)
[2019-04-18] MEDS: DOCUSATE SODIUM 100 MG CAP PO SCH ×2 (09:39→20:32)
[2019-04-18] MEDS: LORATADINE 10 MG TAB PO SCH (09:39)
[2019-04-18] MEDS: MAGNESIUM OXIDE 400 MG TAB (MAG-OX) PO SCH ×2 (09:39→20:33)
[2019-04-18] MEDS: ACETAMINOPHEN 500 MG TAB PO SCH ×3 (09:40→20:33)
[2019-04-18] MEDS: OMEPRAZOLE 20 MG CAP PO SCH ×2 (09:40→20:33)
[2019-04-18] MEDS: METOPROLOL SUCC (TopROL XL) 100MG *XL* TAB PO SCH (09:40)
[2019-04-18] MEDS: ASPIRIN 81 MG ENTERIC TAB PO SCH (09:41)
[2019-04-18] MEDS: OYSTER SHELL CALCIUM 500 MG TAB PO SCH ×2 (09:41→20:33)
[2019-04-18] MEDS: VITAMIN D 1,000 INTERNATIONAL UNITS TABLET PO SCH (09:41)
[2019-04-18] MEDS: FLUTICASONE PROP 0.05% NASAL SPRAY 16 GM (FLONASE) NARES SCH (09:41)
[2019-04-18] MEDS: FERROUS GLUCONATE 324 MG TAB PO SCH ×2 (09:41→20:33)
[2019-04-18] MEDS: HEPARIN SOD (PORCINE) 5000 UNITS/ML VIAL SC SCH ×2 (09:41→20:33)
[2019-04-18] MEDS ORDERED: FUROSEMIDE 40 MG TAB PO ONE (13:00)
--- NOTE | 2019-04-18 13:47 | IPNPDOC ---
Text Note Date of Service The patient was seen on 04/18/19. NOTE SUBJECTIVE: See the patient at bed side today. Patient was going to use the b [employer] commode. Says feels good slowly getting stronger, no SOB, no chest pain or cough, no abdominal pain, nausea or vomiting, Says has sometimes ses bright red blood with her stools from her hemorrhoids. OBJECTIVE: Vitals: pls see below. I/O and weight : reviewed, pls see below General: The patient is awake, alert, oriented to person and place, able to converse appropriately, in no respiratory distress or use of respiratory accessory muscles. HEENT: Normocephalic, atarumatic, anicteric eyes, moist mucous membranes. Neck No JVD, no thyromegaly Lungs: Clear to auscultation. No wheezing, rales or rhonchi. Heart: S1 and S2. Sinus rhythm. Systolic murmur present Abdomen: Soft. Obese. Nontender. Nondistended. bowel sounds normal. Skin color is pink, warm, dry. Extremities: left leg with brace, Bipedal edema present. Left leg greater than right . On the right there is 2+ pedal edema. LABORATORY DATA:reviewed ASSESSMENT AND PLAN: This is an 83-year-old with history of chronic kidney disease (CKD) stage 3, atrial fibrillation not anticoagulation due to history of GI bleed and usually on aspirin, congestive heart failure with severe pulmonary hypertension, dyslipidemia, hypothyroidism, peptic ulcer disease, reflux, rheumatoid arthritis, GI bleed with hypotensive shock in 10/2018, diabetes with recurrent hyperglycemia, hypothyroidism, mitral regurgitation, severe tricuspid regurgitation, history of complete AV block with pacemaker, essential hypertension, and anemia due to chronic kidney disease, admitted due to a fall with resulting left distal femoral fracture status post ORIF who had hyperkalemia and Spironolactone had been discontinued. Acute on chronic renal failure, improved to baseline. due to acute urinary retention Now again staring to retain fluids Have restarted the pateint on lasix [address] Masterson. Left distal femoral fracture s/p status post mechanical fall. On ASA and heparin sq, pain mgt, and activity per orthopedic surgery. PT/OT/ARU attending. pain control with oxycodone and tylenol. Anemia acute on chronic may be due to TYLER on CKD, post fracture with loss in hematoma and post surgical, iatrogenic from blood draws, s/p 2 units of PRBC transfusion Received IV Iron Paroxysmal Atrial fibrillation, H/O Complete A-V block with PPM in place on metoprolol 100 daily. Rate controlled. No anticoagulation due to recent GI bleed. only on ASA. Vitamin D deficiency, on calcium and vitamin D replacement. Type 2 diabetes, on hyperglycemic protocol, insulin sliding scale, consistent carbohydrate diet. GERD with History of GI bleed, H/O hematemesis and mandy found to have gastritis and duodenitis in october 18 2018 on Carafate and proton pump inhibitor on Prilosec 40 twice a day. Congestive heart failure with preserved LV systolic function with valvular heart disease moderate mitral regurg and severe tricuspid regurgitation. Also has moderate to severe pulmonary hypertension still remains hypervolemic. restarted her lasix Valvular heart disease --Mitral regurgitation moderate, severe tricuspid r egurgitation Severe pulmonary hypertension with right heart failure. Diverticulosis and internal hemorrhoids no issues at this point continue hydrocortisone cream prn Rheumatoid arthritis , osteoarthritis and osteoporosis Was on HCQS now not on medication list. oxycodone and tylenol Gout on allopurinol Hyperlipidemia continue gemfibrosil Hypothyroidism. Continue Synthroid. Morbid obesity with pulmonary hypertension and features of right heart failure. complicating care. VS,Fishbone, I+O VS, Fishbone, I+O Laboratory Tests 04/18/19 06:17 Calcium Level 8.5 L Vital Signs Date Time Temp Pulse Resp B/P (MAP) Pulse Ox O2 Delivery O2 Flow Rate FiO2 04/18/19 09:40 69 138/62 04/18/19 05:40 97.1 18 98 l I&O- Last 24 Hours up to 6 AM 04/18/19 06:00 Intake Total 900 ml Balance 900 ml MATEUSZ CARTAGENA MD Apr 18, 2019 13:47
[2019-04-18 14:00] VITALS: BP 143/64
[2019-04-18 20:00] VITALS: BP 121/58
[2019-04-18] MEDS: SENNA 8.6 MG TAB (SENOKOT) PO SCH (20:32)
[2019-04-18] MEDS: allopurinoL 300 MG TAB PO SCH (20:33)
--- NOTE | 2019-04-18 21:52 | IPN ---
DATE: 04/18/2019 Mrs. Doty is seen this morning on her bedside. She is laying in her bed with head end elevated at about 30 degrees. She denies any nausea, vomiting, fever or chills. PHYSICAL EXAMINATION Temperature 97.1 degrees Fahrenheit, heart rate 70 per minute and respiratory rate 18 per minute. Blood pressure 148/68 mmHg and oxygen saturation 98% on room air. Head is atraumatic. Neck is supple and jugular venous distention (JVD) is quite prominent and pulsatile. She has no oral thrush or ulcers. Heart: Sounds regular and lungs with diminished breath sounds at bases. Abdomen: Obese, soft and nontender and bowel sounds are normal. Extremities have no cyanosis or clubbing. Neurologically she is at her baseline mentation. LABS: Today's labs show WBC count 6.3, hemoglobin 9.3 and hematocrit 29.6. Sodium 140, potassium 4.3, CO2 21, BUN 55 and creatinine 1.46. PROBLEMS 1. Congestive heart failure. Her volume status remains decompensated. She is currently not on any standing dose of diuretic. I am going to start her on Lasix 40 mg daily with first dose today. We have been using intermittent Lasix previously. 2. Acute kidney injury superimposed on chronic kidney disease. Kidney function remained stable with creatinine between 1.3 and 1.5 mg/dl. There is no trend at this point. Electrolytes are stable and we will continue to monitor periodically. 3. Anemia. Her anemia improved following transfusion and has been stable. She has also received intravenous iron. 4. Hypertension. Blood pressure is well-controlled on current antihypertensive meds and no changes are being made today other than addition of diuretic.
[2019-04-19] MEDS: LEVOTHYROXINE 37.5MCG PER 1/2TAB (0.0375MG) PO SCH (05:14)
[2019-04-19 06:00] VITALS: BP 153/66
[2019-04-19] MEDS: gemfibroziL 600 MG TAB PO SCH ×2 (07:52→16:45)
[2019-04-19] MEDS: HumaLOG INSULIN (NovoLOG) PER UNIT SC SCH ×4 (07:52→21:00)
[2019-04-19] MEDS: SUCRALFATE 1 GM TAB PO SCH ×2 (07:52→21:48)
[2019-04-19 08:00] VITALS: BP 164/70
[2019-04-19] MEDS: FLUTICASONE PROP 0.05% NASAL SPRAY 16 GM (FLONASE) NARES SCH (08:22)
[2019-04-19] MEDS: VITAMIN D 1,000 INTERNATIONAL UNITS TABLET PO SCH (08:23)
[2019-04-19] MEDS: METOPROLOL SUCC (TopROL XL) 100MG *XL* TAB PO SCH (08:23)
[2019-04-19] MEDS: HEPARIN SOD (PORCINE) 5000 UNITS/ML VIAL SC SCH ×2 (08:23→21:48)
[2019-04-19] MEDS: ASPIRIN 81 MG ENTERIC TAB PO SCH (08:23)
[2019-04-19] MEDS: LORATADINE 10 MG TAB PO SCH (08:24)
[2019-04-19] MEDS: OMEPRAZOLE 20 MG CAP PO SCH ×2 (08:24→21:49)
[2019-04-19] MEDS: ACETAMINOPHEN 500 MG TAB PO SCH ×3 (08:24→21:49)
[2019-04-19] MEDS: FUROSEMIDE 40 MG TAB PO SCH (08:24)
[2019-04-19] MEDS: OYSTER SHELL CALCIUM 500 MG TAB PO SCH ×2 (08:24→21:49)
[2019-04-19] MEDS: MAGNESIUM OXIDE 400 MG TAB (MAG-OX) PO SCH ×2 (08:24→21:48)
[2019-04-19] MEDS: DOCUSATE SODIUM 100 MG CAP PO SCH ×2 (08:24→21:48)
[2019-04-19] MEDS: FERROUS GLUCONATE 324 MG TAB PO SCH ×2 (08:24→21:49)
[2019-04-19 13:57] VITALS: BP 141/67
[2019-04-19 20:00] VITALS: BP 132/63
[2019-04-19] MEDS: SENNA 8.6 MG TAB (SENOKOT) PO SCH (21:49)
[2019-04-19] MEDS: allopurinoL 300 MG TAB PO SCH (21:49)
[2019-04-20 04:00] VITALS: BP 152/70
[2019-04-20] MEDS: LEVOTHYROXINE 37.5MCG PER 1/2TAB (0.0375MG) PO SCH (06:24)
[2019-04-20] MEDS: HumaLOG INSULIN (NovoLOG) PER UNIT SC SCH ×4 (07:41→20:04)
[2019-04-20] MEDS: gemfibroziL 600 MG TAB PO SCH ×2 (07:41→16:54)
[2019-04-20] MEDS: ACETAMINOPHEN 500 MG TAB PO SCH ×3 (07:43→20:22)
[2019-04-20] MEDS: FLUTICASONE PROP 0.05% NASAL SPRAY 16 GM (FLONASE) NARES SCH (07:43)
[2019-04-20] MEDS: OMEPRAZOLE 20 MG CAP PO SCH ×2 (07:43→20:22)
[2019-04-20] MEDS: VITAMIN D 1,000 INTERNATIONAL UNITS TABLET PO SCH (07:43)
[2019-04-20] MEDS: MAGNESIUM OXIDE 400 MG TAB (MAG-OX) PO SCH ×2 (07:44→20:22)
[2019-04-20] MEDS: SUCRALFATE 1 GM TAB PO SCH ×2 (07:44→20:26)
[2019-04-20] MEDS: OYSTER SHELL CALCIUM 500 MG TAB PO SCH ×2 (07:45→20:22)
[2019-04-20] MEDS: DOCUSATE SODIUM 100 MG CAP PO SCH ×2 (07:45→20:22)
[2019-04-20] MEDS: FERROUS GLUCONATE 324 MG TAB PO SCH ×2 (07:45→20:22)
[2019-04-20] MEDS: FUROSEMIDE 40 MG TAB PO SCH (07:45)
[2019-04-20] MEDS: HEPARIN SOD (PORCINE) 5000 UNITS/ML VIAL SC SCH ×2 (07:46→20:23)
[2019-04-20] MEDS: METOPROLOL SUCC (TopROL XL) 100MG *XL* TAB PO SCH (07:46)
[2019-04-20] MEDS: LORATADINE 10 MG TAB PO SCH (07:46)
[2019-04-20] MEDS: ASPIRIN 81 MG ENTERIC TAB PO SCH (07:46)
[2019-04-20 09:00] VITALS: BP 140/64
[2019-04-20 14:00] VITALS: BP 123/60
[2019-04-20 20:00] VITALS: BP 132/62
[2019-04-20] MEDS: allopurinoL 300 MG TAB PO SCH (20:23)
[2019-04-20] MEDS: SENNA 8.6 MG TAB (SENOKOT) PO SCH (20:26)
[2019-04-21 05:56] VITALS: BP 145/68
[2019-04-21] MEDS: LEVOTHYROXINE 37.5MCG PER 1/2TAB (0.0375MG) PO SCH (06:06)
[2019-04-21 07:16] LABS: BASO # 0.1 10^3/uL (0.0-0.2); BASO % 0.8 % (0.0-1.0); EOS # 0.2 10^3/uL (0.0-0.5); HEMATOCRIT 30.4 % (36.0-47.0); HEMOGLOBIN 9.3 g/dl (12.0-15.5); LYMPH # 0.7 10^3/uL (1.5-5.0); LYMPH % 11.8 % (24.0-44.0); MEAN CORPUSCULAR HEMOGLOBIN 31.4 pg (27.0-33.0); MEAN CORPUSCULAR HGB CONC 30.6 g/dl (32.0-36.5); MEAN CORPUSCULAR VOLUME 102.7 fl (80.0-96.0); MONO # 0.6 10^3/uL (0.0-0.8); MONO % 9.8 % (0.0-5.0); NEUTROPHILS # 4.3 10^3/uL (1.5-8.5); NEUTROPHILS % 72.1 % (36.0-66.0); PLATELET COUNT, AUTOMATED 288 10^3/uL (150-450); RED BLOOD COUNT 2.96 10^6/uL (4.00-5.40); WHITE BLOOD COUNT 5.9 10^3/uL (4.0-10.0)
[2019-04-21 07:37] LABS: ALBUMIN 3.2 GM/DL (3.2-5.2); CREATININE FOR GFR 1.51 MG/DL (0.55-1.30); GLOMERULAR FILTRATION RATE 35.2 (>32); PHOSPHORUS LEVEL 4.3 MG/DL (2.5-4.9); POTASSIUM SERUM 4.3 MEQ/L (3.5-5.1)
[2019-04-21] MEDS: OMEPRAZOLE 20 MG CAP PO SCH ×2 (08:41→20:15)
[2019-04-21] MEDS: FERROUS GLUCONATE 324 MG TAB PO SCH ×2 (08:41→20:15)
[2019-04-21] MEDS: HEPARIN SOD (PORCINE) 5000 UNITS/ML VIAL SC SCH ×2 (08:41→20:14)
[2019-04-21] MEDS: OYSTER SHELL CALCIUM 500 MG TAB PO SCH ×2 (08:41→20:14)
[2019-04-21] MEDS: SUCRALFATE 1 GM TAB PO SCH ×2 (08:41→20:14)
[2019-04-21] MEDS: LORATADINE 10 MG TAB PO SCH (08:42)
[2019-04-21] MEDS: FUROSEMIDE 40 MG TAB PO SCH (08:42)
[2019-04-21] MEDS: METOPROLOL SUCC (TopROL XL) 100MG *XL* TAB PO SCH (08:42)
[2019-04-21] MEDS: ACETAMINOPHEN 500 MG TAB PO SCH ×3 (08:42→20:14)
[2019-04-21] MEDS: MAGNESIUM OXIDE 400 MG TAB (MAG-OX) PO SCH ×2 (08:42→20:15)
[2019-04-21] MEDS: DOCUSATE SODIUM 100 MG CAP PO SCH ×2 (08:42→20:14)
[2019-04-21] MEDS: ASPIRIN 81 MG ENTERIC TAB PO SCH (08:43)
[2019-04-21] MEDS: VITAMIN D 1,000 INTERNATIONAL UNITS TABLET PO SCH (08:43)
[2019-04-21] MEDS: FLUTICASONE PROP 0.05% NASAL SPRAY 16 GM (FLONASE) NARES SCH (08:43)
[2019-04-21] MEDS: gemfibroziL 600 MG TAB PO SCH ×2 (08:43→17:12)
[2019-04-21] MEDS: HumaLOG INSULIN (NovoLOG) PER UNIT SC SCH ×4 (08:44→20:20)
--- NOTE | 2019-04-21 10:34 | IPN ---
DATE OF SERVICE: 04/19/2019 SUBJECTIVE: The patient was seen and examined at the bedside. She is afebrile, hemodynamically stable. Her renal function is stable, creatinine has been fluctuating at 1.3-1.4. She denies any active complaints apart from moderate amount shortness of breath on exertion. OBJECTIVE: Vital Signs: Temperature is 98 degrees Fahrenheit, blood pressure 164/71, pulse is 70, respiratory rate of 20, saturating 100% on room air. Intake and Output: Urine output recorded as 450 mL, weight in the bed scale is not available. PHYSICAL EXAMINATION: General: The patient is awake, alert, oriented times three, morbidly obese, sitting up in the sofa in no apparent distress. Head and Neck Exam: Extraocular muscles intact. Pupils equally round and reactive to light. Mucous membranes are moist. Neck is supple. There is no jugular venous distention (JVD). Cardiovascular: S1 and S2, regular rate. 1+ edema of the extremities. Respiratory: Chest is clear to auscultation bilaterally. Bilateral equal air entry. No rales or rhonchi. Abdomen: Soft, obese, positive bowel sounds. Nontender. No organomegaly. Musculoskeletal: The patient has a brace on the left leg. LABOR SERVICE REPRESENTATIVE: No focal deficit. Power is 5/5 in bilateral upper extremities. LAB REVIEW: CBC from 04/16/2019 and BMP was done yesterday which showed a creatinine of 1.4. Aluminum level was done on 04/10/2019 which 20 and it is high. CURRENT INPATIENT MEDICATIONS: The patient's medications were all reviewed by me. The patient is on Carafate, I have decreased the Carafate dose to 1 gram by mouth twice a day because of aluminum toxicity. ASSESSMENT/PLAN: 1. Acute kidney injury superimposed on chronic kidney disease. Patient's renal function has improved back to baseline. It has been fluctuating at around 1.3-1.4. Continue current dose of Lasix 40 mg by mouth daily which has been started today morning. 2. Gastroesophageal reflux disease. The patient has aluminum toxicity. I have decreased the dose of Carafate to 1 tablet by mouth twice a day. 3. Iron-deficiency anemia. The patient recently had surgery and she also gives history of bad hemorrhoids. She has gotten 2 units of packed red blood cell (PRBC) transfusion so far. The patient was also given IV iron during this hospitalization. 4. Acute decompensated congestive heart failure. The patient has normal left ventricular ejection fraction, but severe tricuspid regurgitation and severe primary hypertension. She has been started on Lasix 40 mg daily. I will continue to intermittently monitor her renal function while she is on diuretics.
[2019-04-21 14:00] VITALS: BP 129/62
--- NOTE | 2019-04-21 15:15 | IPNPDOC ---
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 REVIEW OF SYSTEMS: The following is a completed review of systems and has been reviewed. Review of systems otherwise unremarkable. PAIN: Patient self reports left leg pain EYES: No recent vision changes EARS, NOSE, & THROAT: No throat pain, or dysphagia, or rhinorrhea CARDIOVASCULAR: Denies chest pain or palpitations PULMONARY: Denies shortness of breath GASTROINTESTINAL:+constipation (resolve) GENITOURINARY: denies dysuria MUSCULOSKELETAL: left distal femur fracture NEUROLOGICAL:no seizure activity/focal tremor HEMATOLOGICAL:+anemia SKIN: left knee incision, sacral rash PSYCHIATRIC: Unremarkable All other review of systems found to be negative. PHYSICAL EXAMINATION: VITAL SIGNS: Please see below. GENERAL: Pleasant and cooperative. No acute distress. HEENT: PERRL. Extraocular movements intact. Clear conjunctiva CARDIOVASCULAR: Regular rate and rhythm. No murmurs, rubs, or gallops LUNGS: Clear to auscultation bilaterally. No wheezes. No rhonchi ABDOMEN: Soft, nontender, nondistended. Positive bowel sounds. Normal active bowel sounds NEUROLOGICAL: Alert and oriented times three. Cranial nerves II through XII grossly intact. Sensation grossly intact in all 4 extremities EXTREMITIES: 5\5 strength bilateral upper extremities. 5\5 strength right lower extremity. 4/5 strength in left lowerankle DF and EHL and PF (limited exam). LLE edematous SKIN: left knee incision not examined, sacrum with mild erythema Left calf with swelling and mild erythema ASSESSMENT:83-year-old F with past medical history of CHF, pul HTN, CKD who presents status post fall with gurjit-prosthetic distal femur fracture PLAN: 1. PT- strengthen, maintain ROM and stretch RLE, work on balance and household ambulation with RW while NWB for LLE OT- stengthen, stretch, maintain ROM bilat UE, work on ADL management 2. Ortho: left distal femur gurjit-prosthetic fracture, NWB LLE, extension brace to be worn at all times, ortho consulted 2. Neuro: avoid delirogenic meds 3. Cardiac: pmh Afib with recent GI bleed off AC with dual chamber PM, spironolactone on hold due to recent Hyperkalemia, c/u beta-qiana, s/p gentle hydration for TYLER on CKD- medicine consulted to assist with management -HLD- c/u Lopid at lower renal dosing 4. Reps: pmh pulm HTN, encourage incentive spirometry, monitor for infection 5. Endo: Hypothyroid- c/u synthroid 6. GI: recent GI bleed, c/u Prilosec 40 BID and sucralfate with meals, optimize bowel meds - bloody BM on 04/13/19, c/u to monitor and transfuse blood x2 units 7. 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 DVT ppx: hepain and TEDs to RLE, will order dopplers 9. Pain: Tylenol and oxycodone prn, ice 10. Skin: zinc to sacrum 11. Heme: anemia of chronic disease in setting of blood loss due to recent surgery- Hgb 7.8 04/14/19 s/p 2 units, improved to around 9, -monitor for bloody bowel movements, stable today - c/u Venofer per renal 12. Skin: acewrap left foot up to mid-calf and elevate 11. Dispo: 04/25/19 to home, progressing toward goals Allergies Coded Allergies: latex (Verified Allergy, Severe, Anaphylaxis, 10/30/18) [place] (Verified Allergy, Unknown, 10/30/18) codeine (Verified Adverse Reaction, Intermediate, Dizziness, Blurred Vision, Headache, Dry Mouth, 10/30/18) Vital Signs Vital Signs Date Time Temp Pulse Resp B/P (MAP) Pulse Ox O2 Delivery O2 Flow Rate FiO2 04/21/19 14:00 97.6 71 18 129/62 (84) 100 Laboratory Data CBC/BMP Laboratory Tests 04/21/19 06:53 Red Blood Count 2.96 L, Mean Corpuscular Volume 102.7 H, Mean Corpuscular Hemoglobin 31.4, Mean Corpuscular Hemoglobin Concent 30.6 L, Red Cell Distribu tion Width 19.2 H, Neutrophils (%) (Auto) 72.1 H, Lymphocytes (%) (Auto) 11.8 L, Monocytes (%) (Auto) 9.8 H, Eosinophils (%) (Auto) 4.0 H, Basophils (%) (Auto) 0.8, Neutrophils # (Auto) 4.3, Lymphocytes # (Auto) 0.7 L, Monocytes # (Auto) 0.6, Eosinophils # (Auto) 0.2, Basophils # (Auto) 0.1 04/21/19 06:54 Anion Gap 8 Labs 24H Laboratory Tests 2 04/20/19 16:30: Bedside Glucose (Misc Panel) 131H 04/20/19 19:58: Bedside Glucose (Misc Panel) 185H 04/21/19 06:21: Bedside Glucose (Misc Panel) 161H 04/21/19 06:53: Immature Granulocyte % (Auto) 1.5, White Blood Count 5.9, Red Blood Count 2.96L, Hemoglobin 9.3L, Hematocrit 30.4L, Mean Corpuscular Volume 102.7H, Mean Corpuscular Hemoglobin 31.4, Mean Corpuscular Hemoglobin Concent 30.6L, Red Cell Distribution Width 19.2H, Platelet Count 288, Neutrophils (%) (Auto) 72.1H, Lymphocytes (%) (Auto) 11.8L, Monocytes (%) (Auto) 9.8H, Eosinophils (%) (Auto) 4.0H, Basophils (%) (Auto) 0.8, Neutrophils # (Auto) 4.3, Lymphocytes # (Auto) 0.7L, Monocytes # (Auto) 0.6, Eosinophils # (Auto) 0.2, Basophils # (Auto) 0.1, Nucleated Red Blood Cells % (auto) 0.0 04/21/19 06:54: Blood Urea Nitrogen 58H, Creatinine 1.51H, Sodium Level 136, Potassium Level 4.3, Chloride Level 105, Carbon Dioxide Level 23, Anion Gap 8, Glomerular Filtration Rate 35.2, Calcium Level 9.0, Phosphorus Level 4.3, Albumin 3.2 04/21/19 11:55: Bedside Glucose (Misc Panel) 166H Current Medications Current Medications Current Medications Medications (Trade) Dose Ordered Sig/Kj Route PRN Reason Start Time Stop Time Status Last Admin Dose Admin Acetaminophen (Tylenol Tab) 1,000 mg TID PO 04/09/19 21:00 04/21/19 08:42 Albuterol/ Ipratropium (Duoneb (Ipr 0.5mg/Alb 2.5mg)) 3 ml Q4HP PRN NEB SOB/WHEEZING 04/09/19 17:00 Allopurinol (Zyloprim) 300 mg QHS PO 04/09/19 21:00 04/20/19 20:23 Aspirin (Ecotrin) 81 mg DAILY PO 04/09/19 09:00 04/21/19 08:43 Bisacodyl (Dulcolax Suppository) 10 mg DAILYPRN PRN MD CONSTIPATION 04/09/19 17:00 Bisacodyl (Dulcolax Suppository) 10 mg ONCE PRN MD 2 hrs after lactulose if no BM 04/11/19 14:00 04/11/19 16:00 DC Calcium Carbonate (Oscal) 500 mg BID PO 04/09/19 21:00 04/21/19 08:41 Dextrose (Dextrose 50%) 25 ml ASDIRECTED PRN IV SEE LABEL COMMENTS 04/09/19 17:30 Docusate Sodium (Colace) 100 mg BID PO 04/09/19 21:00 04/21/19 08:42 Ferrous Gluconate (Fergon) 324 mg BID PO 04/09/19 21:00 04/21/19 08:41 Fluticasone Propionate (Flonase 0.05% Nasal [place]) 2 spray DAILY NARES 04/10/19 09:00 04/21/19 08:43 Furosemide (Lasix) 40 mg DAILY PO 04/19/19 09:00 04/21/19 08:42 Gemfibrozil (Lopid) 300 mg DAILY@1730 PO 04/10/19 17:30 04/20/19 16:54 Gemfibrozil (Lopid) 600 mg BID@0730,1730 PO 04/09/19 17:30 04/10/19 11:57 DC 04/10/19 08:48 Gemfibrozil (Lopid) 600 mg DAILY@0730 PO 04/11/19 07:30 04/21/19 08:43 Glucagon (Glucagon) 1 mg ASDIRECTED PRN SC SEE LABEL COMMENTS 04/09/19 17:30 Glucose (Glucose) 16 GM ASDIRECTED PRN PO SEE LABEL COMMENTS 04/09/19 17:30 Heparin Sodium (Porcine) (Heparin) 5,000 units Q12H SC 04/09/19 21:00 04/21/19 08:41 Home Med (Med Rec Complete!) ASDIRECTED XX 04/09/19 15:30 04/09/19 15:30 DC Insulin Human Lispro (HumaLOG INSULIN) SEE PROTOCOL TABLE AC SC 04/09/19 17:30 04/21/19 12:31 Insulin Human Lispro (HumaLOG INSULIN) SEE PROTOCOL TABLE QHS SC 04/09/19 21:00 04/16/19 21:28 Iron 200 mg/ Sodium Chloride 110 ml @ 110 mls/hr DAILY IV 04/11/19 09:00 04/14/19 08:59 DC 04/13/19 09:00 Levothyroxine Sodium (Synthroid) 37.5 mcg DAILY@06 PO 04/10/19 06:00 04/21/19 06:06 Loratadine (Claritin) 10 mg DAILY PO 04/10/19 09:00 04/21/19 08:42 Magnesium Hydroxide (Milk Of Magnesia) 30 ml DAILYPRN PRN PO CONSTIPATION 04/09/19 17:00 Magnesium Oxide (Mag-Ox) 400 mg BID PO 04/09/19 21:00 04/21/19 08:42 Metoprolol Succinate (TopROL XL) 100 mg DAILY PO 04/10/19 09:00 04/21/19 08:42 Miscellaneous (Unresolved Clarification Entry) SEE LABEL COMMENTS DAILY XX 04/15/19 09:00 04/16/19 07:22 DC Miscellaneous (Unresolved Clarification Entry) SEE LABEL COMMENTS DAILY XX 04/16/19 09:00 04/16/19 11:25 DC Omeprazole (PriLOSEC) 40 mg BID PO 04/09/19 21:00 04/21/19 08:41 Oxycodone HCl (Roxicodone, Oxyir) 5 mg Q4HP PRN PO PAIN 04/09/19 17:00 04/10/19 13:12 Senna (Senokot) 1 tab QHS PO 04/09/19 21:00 04/20/19 20:26 Sucralfate (Carafate) 1 gm ACHS PO 04/09/19 17:30 04/19/19 10:15 DC 04/19/19 07:52 Sucralfate (Carafate) 1 gm BID PO 04/19/19 21:00 04/21/19 08:41 Vitamin D (Vitamin D) 2,000 units DAILY PO 04/10/19 09:00 04/21/19 08:43 Zinc Oxide (Boudreauxs Butt Paste) sacrum BID TOP 04/10/19 21:00 04/16/19 11:29 DC 04/15/19 21:48 UBALDO GORMAN MD Apr 21, 2019 15:15
--- NOTE | 2019-04-21 16:37 | REP ---
Bilateral lower extremity Duplex Doppler venous ultrasound: Real time compression and duplex Doppler interrogation of the bilateral lower extremity deep venous system is performed. Bilaterally, the common femoral, superficial femoral and popliteal veins are fully compressible with transducer pressure and demonstrate normal spontaneous and phasic flow, without evidence of deep venous thrombosis. Impression: No evidence of deep venous thrombosis of the bilateral lower extremity femoral popliteal venous system. Electronically Signed by John Choi MD 04/21/2019 04:29 P
[2019-04-21 19:49] VITALS: BP 141/65
--- NOTE | 2019-04-21 19:49 | IPN ---
DATE: 04/21/2019 SUBJECTIVE: The patient was seen and examined at the bedside today morning. She was laying in the bed. She denies any active complaints. She is tolerating the current dose of Lasix. Renal function is stable. Creatinine is fluctuating around 1.4 to 1.5. She reports lower extremity edema is slightly improving. Blood pressures are controlled. OBJECTIVE: Vital signs: Temperature is 98.1 degrees Fahrenheit, blood pressure 145/68, pulse is 71, respiratory rate of 20, saturating 97% on room air. Intake and output: There is no urine output recorded. Weight in the bed scale was 95.6 kg yesterday. PHYSICAL EXAMINATION: General: The patient is awake, alert, oriented x3, laying in bed in no apparent distress. Head and neck exam: Extraocular muscles intact. Pupils equally round and reactive to light. Mucous membranes are moist. Neck is supple. There is moderately elevated JVD. Cardiovascular: S1, S2, regular rate, 2+ edema of the bilateral lower extremities. Respiratory: Chest is clear to auscultation bilaterally. Bilateral equal air entry. No rales or rhonchi. Abdomen: Soft, obese, positive bowel sounds. Nontender. No organomegaly. Musculoskeletal: Brace on the left leg. 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 Power is 5/5 in bilateral upper extremities. LABORATORY REVIEW: Complete blood count (CBC) showed white blood count (WBC) 5.9, hemoglobin 9.3, platelets are 258. Basic metabolic panel (BMP) showed sodium 136, potassium 4.3, chloride 105, bicarbonate 23, BUN 58, creatinine is 1.5, calcium is 9, phosphorus is 4.3. CURRENT INPATIENT MEDICATION: The patient's medications were all reviewed by me. There is no change in the medications today as compared with yesterday. ASSESSMENT/PLAN: 1. Acute kidney injury superimposed on chronic kidney disease stage III. The patient had acute kidney injury (TYLER) secondary to obstruction. Postop renal function is stable. She is tolerating the current dose of diuretics. Okay to continue Lasix 40 mg daily now. 2. Acute decompensated diastolic congestive heart failure. The patient has severe pulmonary hypertension with elevated central venous pressures. Continue Lasix 40 mg daily if needed. The dose will be increased over the next one or two days if the renal function stays stable. 3. Iron-deficiency anemia. Hemoglobin levels are staying stable around 9. The patient is status post IV iron. She is also on oral iron every day. MTDD
[2019-04-21] MEDS: SENNA 8.6 MG TAB (SENOKOT) PO SCH (20:14)
[2019-04-21] MEDS: allopurinoL 300 MG TAB PO SCH (20:15)
[2019-04-22 04:22] VITALS: BP 150/72
[2019-04-22] MEDS: LEVOTHYROXINE 37.5MCG PER 1/2TAB (0.0375MG) PO SCH (06:02)
[2019-04-22 07:10] LABS: ALBUMIN 2.9 GM/DL (3.2-5.2); CALCIUM LEVEL 8.6 MG/DL (8.8-10.2); CREATININE FOR GFR 1.56 MG/DL (0.55-1.30); GLOMERULAR FILTRATION RATE 33.9 (>32); PHOSPHORUS LEVEL 4.2 MG/DL (2.5-4.9); POTASSIUM SERUM 4.2 MEQ/L (3.5-5.1)
[2019-04-22] MEDS: HEPARIN SOD (PORCINE) 5000 UNITS/ML VIAL SC SCH ×2 (08:26→21:15)
[2019-04-22] MEDS: OMEPRAZOLE 20 MG CAP PO SCH ×2 (08:27→21:15)
[2019-04-22] MEDS: FUROSEMIDE 40 MG TAB PO SCH (08:27)
[2019-04-22] MEDS: OYSTER SHELL CALCIUM 500 MG TAB PO SCH ×2 (08:27→21:15)
[2019-04-22] MEDS: gemfibroziL 600 MG TAB PO SCH ×2 (08:27→18:21)
[2019-04-22] MEDS: FERROUS GLUCONATE 324 MG TAB PO SCH ×2 (08:27→21:16)
[2019-04-22] MEDS: ASPIRIN 81 MG ENTERIC TAB PO SCH (08:27)
[2019-04-22] MEDS: MAGNESIUM OXIDE 400 MG TAB (MAG-OX) PO SCH ×2 (08:27→21:15)
[2019-04-22] MEDS: HumaLOG INSULIN (NovoLOG) PER UNIT SC SCH ×4 (08:27→21:00)
[2019-04-22] MEDS: LORATADINE 10 MG TAB PO SCH (08:27)
[2019-04-22] MEDS: DOCUSATE SODIUM 100 MG CAP PO SCH ×2 (08:28→21:15)
[2019-04-22] MEDS: METOPROLOL SUCC (TopROL XL) 100MG *XL* TAB PO SCH (08:28)
[2019-04-22] MEDS: SUCRALFATE 1 GM TAB PO SCH ×2 (08:28→21:15)
[2019-04-22] MEDS: ACETAMINOPHEN 500 MG TAB PO SCH ×3 (08:28→21:15)
[2019-04-22] MEDS: FLUTICASONE PROP 0.05% NASAL SPRAY 16 GM (FLONASE) NARES SCH (08:28)
[2019-04-22] MEDS: VITAMIN D 1,000 INTERNATIONAL UNITS TABLET PO SCH (08:28)
[2019-04-22 14:00] VITALS: BP 127/61
--- NOTE | 2019-04-22 18:15 | IPN ---
DATE: 04/22/2019 SUBJECTIVE: The patient was seen and examined today morning in the gym while she was getting physical therapy. She continues to be on oral diuretics. Leg edema is slowly improving. She got the Doppler of the lower extremities done yesterday, which was negative for deep vein thrombosis (DVT). Renal function is stable. Creatinine is at 1.5. OBJECTIVE: Vital signs: Temperature is 97.3 degrees Fahrenheit, blood pressure 150/72, pulse is 77, respiratory of 80, saturating 95% on room air. Intake and output: Urine output recorded is only 200 mL. Patient is having some incontinent voids as well. Weight in the bed scale is not available. PHYSICAL EXAMINATION: GENERAL: The patient is awake, alert, oriented times three, sitting up in the wheelchair no apparent distress. HEAD AND NECK: Extraocular muscles intact. Pupils equally round and reactive to light. Mucous membranes are moist. Neck is supple. No jugular venous distention (JVD). CARDIOVASCULAR: S1, S2, regular rate. Edema 2+ of the bilateral lower extremities. RESPIRATORY: Chest is clear to auscultation bilaterally. Bilateral equal air entry. No rales or rhonchi. ABDOMEN: Soft, obese. Positive bowel sounds. Nontender. MUSCULOSKELETAL: Left leg has a brace. CENTRAL NERVOUS SYSTEM: No focal deficit. Power is 5/5 in bilateral upper extremities. LABORATORY REVIEW: CBC showed WBC 5.9, hemoglobin 9.3, and that is from yesterday. BMP done today showed sodium 136, potassium 4.2, chloride 105, bicarbonate 22, BUN 58, creatinine is 1.56, calcium 8.6, phosphorus 4.2. CURRENT INPATIENT MEDICATIONS: The patient's medications were all reviewed by me. She continues to be on Lasix 40 mg by mouth daily. No other change in the medications today as compared with yesterday. ASSESSMENT AND PLAN: 1. Acute kidney injury superimposed on chronic kidney disease, stage III. Patient's renal function has stabilized. Creatinine is fluctuating at around 1.4-1.5. 2. Acute decompensated diastolic congestive heart failure. Volume status is still decompensated. She has severe primary hypertension as well. Continue Lasix 40 mg daily. Continue daily weight. If I do not see any improvement with once a day Lasix, then dose will be increased to twice a day. 3. Iron deficiency anemia. The patient is status post packed red blood cells (PRBC) transfusions and intravenous (IV) iron during this hospitalization. Hemoglobin level is staying stable now.
[2019-04-22] MEDS: allopurinoL 300 MG TAB PO SCH (21:14)
[2019-04-22] MEDS: SENNA 8.6 MG TAB (SENOKOT) PO SCH (21:14)
[2019-04-22 22:22] VITALS: BP 150/65
[2019-04-23] MEDS: LEVOTHYROXINE 37.5MCG PER 1/2TAB (0.0375MG) PO SCH (05:42)
[2019-04-23 06:12] VITALS: BP 152/56
[2019-04-23] MEDS: HEPARIN SOD (PORCINE) 5000 UNITS/ML VIAL SC SCH ×2 (08:42→21:53)
[2019-04-23] MEDS: OMEPRAZOLE 20 MG CAP PO SCH ×2 (08:42→21:54)
[2019-04-23] MEDS: MAGNESIUM OXIDE 400 MG TAB (MAG-OX) PO SCH ×2 (08:43→21:55)
[2019-04-23] MEDS: FERROUS GLUCONATE 324 MG TAB PO SCH ×2 (08:43→21:55)
[2019-04-23] MEDS: OYSTER SHELL CALCIUM 500 MG TAB PO SCH ×2 (08:43→21:55)
[2019-04-23] MEDS: ASPIRIN 81 MG ENTERIC TAB PO SCH (08:43)
[2019-04-23] MEDS: METOPROLOL SUCC (TopROL XL) 100MG *XL* TAB PO SCH (08:43)
[2019-04-23] MEDS: ACETAMINOPHEN 500 MG TAB PO SCH ×3 (08:43→21:54)
[2019-04-23] MEDS: gemfibroziL 600 MG TAB PO SCH ×2 (08:43→16:56)
[2019-04-23] MEDS: HumaLOG INSULIN (NovoLOG) PER UNIT SC SCH ×4 (08:43→21:00)
[2019-04-23] MEDS: FUROSEMIDE 40 MG TAB PO SCH (08:44)
[2019-04-23] MEDS: LORATADINE 10 MG TAB PO SCH (08:44)
[2019-04-23] MEDS: SUCRALFATE 1 GM TAB PO SCH ×2 (08:44→21:54)
[2019-04-23] MEDS: DOCUSATE SODIUM 100 MG CAP PO SCH ×2 (08:44→21:00)
[2019-04-23] MEDS: FLUTICASONE PROP 0.05% NASAL SPRAY 16 GM (FLONASE) NARES SCH (08:44)
[2019-04-23] MEDS: VITAMIN D 1,000 INTERNATIONAL UNITS TABLET PO SCH (08:44)
[2019-04-23 14:00] VITALS: BP 142/65
--- NOTE | 2019-04-23 16:19 | IPNPDOC ---
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 REVIEW OF SYSTEMS: The following is a completed review of systems and has been reviewed. Review of systems otherwise unremarkable. PAIN: Patient self reports left leg pain EYES: No recent vision changes EARS, NOSE, & THROAT: No throat pain, or dysphagia, or rhinorrhea CARDIOVASCULAR: Denies chest pain or palpitations PULMONARY: Denies shortness of breath GASTROINTESTINAL:+constipation (resolve) GENITOURINARY: denies dysuria MUSCULOSKELETAL: left distal femur fracture NEUROLOGICAL:no seizure activity/focal tremor HEMATOLOGICAL:+anemia SKIN: left knee incision, sacral rash PSYCHIATRIC: Unremarkable All other review of systems found to be negative. PHYSICAL EXAMINATION: VITAL SIGNS: Please see below. GENERAL: Pleasant and cooperative. No acute distress. HEENT: PERRL. Extraocular movements intact. Clear conjunctiva CARDIOVASCULAR: Regular rate and rhythm. No murmurs, rubs, or gallops LUNGS: Clear to auscultation bilaterally. No wheezes. No rhonchi ABDOMEN: Soft, nontender, nondistended. Positive bowel sounds. Normal active bowel sounds NEUROLOGICAL: Alert and oriented times three. Cranial nerves II through XII grossly intact. Sensation grossly intact in all 4 extremities EXTREMITIES: 5\5 strength bilateral upper extremities. 5\5 strength right lower extremity. 4/5 strength in left lowerankle DF and EHL and PF (limited exam). LLE edematous SKIN: left knee incision not examined, sacrum with mild erythema Left calf with swelling (improving) and mild erythema (improving) ASSESSMENT:83-year-old F with past medical history of CHF, pulm HTN, CKD who presents status post fall with gurjit-prosthetic distal femur fracture PLAN: 1. PT- strengthen, maintain ROM and stretch RLE, work on balance and household ambulation with RW while NWB for LLE, able to do stand-pivot transfers OT- stengthen, stretch, maintain ROM bilat UE, work on ADL management 2. Ortho: left distal femur gurjit-prosthetic fracture, NWB LLE, extension brace to be worn at all times, ortho consulted 2. Neuro: avoid delirogenic meds 3. Cardiac: pmh Afib with recent GI bleed off AC with dual chamber PM, spironolactone on hold due to recent Hyperkalemia, c/u beta-qiana, s/p gentle hydration for TYLER on CKD- medicine consulted to assist with management -HLD- c/u Lopid at lower renal dosing 4. Reps: pmh pulm HTN, encourage incentive spirometry, monitor for infection 5. Endo: Hypothyroid- c/u synthroid 6. GI: recent GI bleed, c/u Prilosec 40 BID and sucralfate with meals, optimize bowel meds - bloody BM on 04/13/19, c/u to monitor and transfuse blood x2 units 7. 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 DVT ppx: hepain and TEDs to RLE, will order dopplers 9. Pain: Tylenol and oxycodone prn, ice 10. Skin: zinc to sacrum 11. Heme: anemia of chronic disease in setting of blood loss due to recent surgery- Hgb 7.8 04/14/19 s/p 2 units, improved to around 9, -monitor for bloody bowel movements, stable, will need GI f/u as outpatient - c/u Venofer per renal 12. Skin: acewrap left foot up to mid-calf and elevate, erythema and swelling improving 11. Dispo: 04/25/19 to home, progressing toward goals Allergies Coded Allergies: latex (Verified Allergy, Severe, Anaphylaxis, 10/30/18) [place] (Verified Allergy, Unknown, 10/30/18) codeine (Verified Adverse Reaction, Intermediate, Dizziness, Blurred Vision, Headache, Dry Mouth, 10/30/18) Vital Signs Vital Signs Date Time Temp Pulse Resp B/P (MAP) Pulse Ox O2 Delivery O2 Flow Rate FiO2 04/23/19 14:00 96.8 69 20 142/65 (90) 97 Laboratory Data Labs 24H Laboratory Tests 2 04/22/19 16:40: Bedside Glucose (Misc Panel) 138H 04/22/19 19:46: Bedside Glucose (Misc Panel) 201H 04/23/19 06:36: Bedside Glucose (Misc Panel) 147H 04/23/19 11:46: Bedside Glucose (Misc Panel) 174H Current Medications Current Medications Current Medications Medications (Trade) Dose Ordered Sig/Kj Route PRN Reason Start Time Stop Time Status Last Admin Dose Admin Acetaminophen (Tylenol Tab) 1,000 mg TID PO 04/09/19 21:00 04/23/19 08:43 Albuterol/ Ipratropium (Duoneb (Ipr 0.5mg/Alb 2.5mg)) 3 ml Q4HP PRN NEB SOB/WHEEZING 04/09/19 17:00 Allopurinol (Zyloprim) 300 mg QHS PO 04/09/19 21:00 04/22/19 21:14 Aspirin (Ecotrin) 81 mg DAILY PO 04/09/19 09:00 04/23/19 08:43 Bisacodyl (Dulcolax Suppository) 10 mg DAILYPRN PRN AL CONSTIPATION 04/09/19 17:00 Bisacodyl (Dulcolax Suppository) 10 mg ONCE PRN AL 2 hrs after lactulose if no BM 04/11/19 14:00 04/11/19 16:00 DC Calcium Carbonate (Oscal) 500 mg BID PO 04/09/19 21:00 04/23/19 08:43 Dextrose (Dextrose 50%) 25 ml ASDIRECTED PRN IV SEE LABEL COMMENTS 04/09/19 17:30 Docusate Sodium (Colace) 100 mg BID PO 04/09/19 21:00 04/22/19 21:15 Ferrous Gluconate (Fergon) 324 mg BID PO 04/09/19 21:00 04/23/19 08:43 Fluticasone Propionate (Flonase 0.05% Nasal [place]) 2 spray DAILY NARES 04/10/19 09:00 04/23/19 08:44 Furosemide (Lasix) 40 mg DAILY PO 04/19/19 09:00 04/23/19 08:44 Gemfibrozil (Lopid) 300 mg DAILY@1730 PO 04/10/19 17:30 04/22/19 18:21 Gemfibrozil (Lopid) 600 mg BID@0730,1730 PO 04/09/19 17:30 04/10/19 11:57 DC 04/10/19 08:48 Gemfibrozil (Lopid) 600 mg DAILY@0730 PO 04/11/19 07:30 04/23/19 08:43 Glucagon (Glucagon) 1 mg ASDIRECTED PRN SC SEE LABEL COMMENTS 04/09/19 17:30 Glucose (Glucose) 16 GM ASDIRECTED PRN PO SEE LABEL COMMENTS 04/09/19 17:30 Heparin Sodium (Porcine) (Heparin) 5,000 units Q12H SC 04/09/19 21:00 04/23/19 08:42 Home Med (Med Rec Complete!) ASDIRECTED XX 04/09/19 15:30 04/09/19 15:30 DC Insulin Human Lispro (HumaLOG INSULIN) SEE PROTOCOL TABLE AC SC 04/09/19 17:30 04/23/19 12:06 Insulin Human Lispro (HumaLOG INSULIN) SEE PROTOCOL TABLE QHS SC 04/09/19 21:00 04/16/19 21:28 Iron 200 mg/ Sodium Chloride 110 ml @ 110 mls/hr DAILY IV 04/11/19 09:00 04/14/19 08:59 DC 04/13/19 09:00 Levothyroxine Sodium (Synthroid) 37.5 mcg DAILY@06 PO 04/10/19 06:00 04/23/19 05:42 Loratadine (Claritin) 10 mg DAILY PO 04/10/19 09:00 04/23/19 08:44 Magnesium Hydroxide (Milk Of Magnesia) 30 ml DAILYPRN PRN PO CONSTIPATION 04/09/19 17:00 Magnesium Oxide (Mag-Ox) 400 mg BID PO 04/09/19 21:00 04/23/19 08:43 Metoprolol Succinate (TopROL XL) 100 mg DAILY PO 04/10/19 09:00 04/23/19 08:43 Miscellaneous (Unresolved Clarification Entry) SEE LABEL COMMENTS DAILY XX 04/15/19 09:00 04/16/19 07:22 DC Miscellaneous (Unresolved Clarification Entry) SEE LABEL COMMENTS DAILY XX 04/16/19 09:00 04/16/19 11:25 DC Omeprazole (PriLOSEC) 40 mg BID PO 04/09/19 21:00 04/23/19 08:42 Oxycodone HCl (Roxicodone, Oxyir) 5 mg Q4HP PRN PO PAIN 04/09/19 17:00 04/21/19 15:17 DC 04/10/19 13:12 Senna (Senokot) 1 tab QHS PO 04/09/19 21:00 04/22/19 21:14 Sucralfate (Carafate) 1 gm ACHS PO 04/09/19 17:30 04/19/19 10:15 DC 04/19/19 07:52 Sucralfate (Carafate) 1 gm BID PO 04/19/19 21:00 04/23/19 08:44 Vitamin D (Vitamin D) 2,000 units DAILY PO 04/10/19 09:00 04/23/19 08:44 Zinc Oxide (Boudreauxs Butt Paste) sacrum BID TOP 04/10/19 21:00 04/16/19 11:29 DC 04/15/19 21:48 UBALDO GORMAN MD Apr 23, 2019 16:19
--- NOTE | 2019-04-23 16:20 | IPNPDOC ---
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 She feels she is getting stronger each day. REVIEW OF SYSTEMS: The following is a completed review of systems and has been reviewed. Review of systems otherwise unremarkable. PAIN: Patient self reports left leg pain EYES: No recent vision changes EARS, NOSE, & THROAT: No throat pain, or dysphagia, or rhinorrhea CARDIOVASCULAR: Denies chest pain or palpitations PULMONARY: Denies shortness of breath GASTROINTESTINAL:+constipation (resolve) GENITOURINARY: denies dysuria MUSCULOSKELETAL: left distal femur fracture NEUROLOGICAL:no seizure activity/focal tremor HEMATOLOGICAL:+anemia SKIN: left knee incision, sacral rash PSYCHIATRIC: Unremarkable All other review of systems found to be negative. PHYSICAL EXAMINATION: VITAL SIGNS: Please see below. GENERAL: Pleasant and cooperative. No acute distress. HEENT: PERRL. Extraocular movements intact. Clear conjunctiva CARDIOVASCULAR: Regular rate and rhythm. No murmurs, rubs, or gallops LUNGS: Clear to auscultation bilaterally. No wheezes. No rhonchi ABDOMEN: Soft, nontender, nondistended. Positive bowel sounds. Normal active bowel sounds NEUROLOGICAL: Alert and oriented times three. Cranial nerves II through XII grossly intact. Sensation grossly intact in all 4 extremities EXTREMITIES: 5\5 strength bilateral upper extremities. 5\5 strength right lower extremity. 4/5 strength in left lowerankle DF and EHL and PF (limited exam). LLE edematous SKIN: left knee incision not examined, sacrum with mild erythema Left calf with swelling (improving) and mild erythema (improving) ASSESSMENT:83-year-old F with past medical history of CHF, pulm HTN, CKD who presents status post fall with gurjit-prosthetic distal femur fracture PLAN: 1. PT- strengthen, maintain ROM and stretch RLE, work on balance and household ambulation with RW while NWB for LLE, able to do stand-pivot transfers OT- stengthen, stretch, maintain ROM bilat UE, work on ADL management 2. Ortho: left distal femur gurjit-prosthetic fracture, NWB LLE, extension brace to be worn at all times, ortho consulted 2. Neuro: avoid delirogenic meds 3. Cardiac: pmh Afib with recent GI bleed off AC with dual chamber PM, spironolactone on hold due to recent Hyperkalemia, c/u beta-qiana, s/p gentle hydration for TYLER on CKD- medicine consulted to assist with management -HLD- c/u Lopid at lower renal dosing 4. Reps: pmh pulm HTN, encourage incentive spirometry, monitor for infection 5. Endo: Hypothyroid- c/u synthroid 6. GI: recent GI bleed, c/u Prilosec 40 BID and sucralfate with meals, optimize bowel meds - bloody BM on 04/13/19, c/u to monitor and transfuse blood x2 units 7. 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 DVT ppx: hepain and TEDs to RLE, will order dopplers 9. Pain: Tylenol and oxycodone prn, ice 10. Skin: zinc to sacrum 11. Heme: anemia of chronic disease in setting of blood loss due to recent surgery- Hgb 7.8 04/14/19 s/p 2 units, improved to around 9, -monitor for bloody bowel movements, stable, will need GI f/u as outpatient - c/u Venofer per renal 12. Skin: acewrap left foot up to mid-calf and elevate, erythema and swelling improving 11. Dispo: 04/25/19 to home, waiting for ramp to be built progressing toward goals Allergies Coded Allergies: latex (Verified Allergy, Severe, Anaphylaxis, 10/30/18) [place] (Verified Allergy, Unknown, 10/30/18) codeine (Verified Adverse Reaction, Intermediate, Dizziness, Blurred Vision, Headache, Dry Mouth, 10/30/18) Vital Signs Vital Signs Date Time Temp Pulse Resp B/P (MAP) Pulse Ox O2 Delivery O2 Flow Rate FiO2 04/23/19 14:00 96.8 69 20 142/65 (90) 97 Laboratory Data Labs 24H Laboratory Tests 2 04/22/19 16:40: Bedside Glucose (Misc Panel) 138H 04/22/19 19:46: Bedside Glucose (Misc Panel) 201H 04/23/19 06:36: Bedside Glucose (Misc Panel) 147H 04/23/19 11:46: Bedside Glucose (Misc Panel) 174H Current Medications Current Medications Current Medications Medications (Trade) Dose Ordered Sig/Kj Route PRN Reason Start Time Stop Time Status Last Admin Dose Admin Acetaminophen (Tylenol Tab) 1,000 mg TID PO 04/09/19 21:00 04/23/19 08:43 Albuterol/ Ipratropium (Duoneb (Ipr 0.5mg/Alb 2.5mg)) 3 ml Q4HP PRN NEB SOB/WHEEZING 04/09/19 17:00 Allopurinol (Zyloprim) 300 mg QHS PO 04/09/19 21:00 04/22/19 21:14 Aspirin (Ecotrin) 81 mg DAILY PO 04/09/19 09:00 04/23/19 08:43 Bisacodyl (Dulcolax Suppository) 10 mg DAILYPRN PRN [place] CONSTIPATION 04/09/19 17:00 Bisacodyl (Dulcolax Suppository) 10 mg ONCE PRN [place] 2 hrs after lactulose if no BM 04/11/19 14:00 04/11/19 16:00 DC Calcium Carbonate (Oscal) 500 mg BID PO 04/09/19 21:00 04/23/19 08:43 Dextrose (Dextrose 50%) 25 ml ASDIRECTED PRN IV SEE LABEL COMMENTS 04/09/19 17:30 Docusate Sodium (Colace) 100 mg BID PO 04/09/19 21:00 04/22/19 21:15 Ferrous Gluconate (Fergon) 324 mg BID PO 04/09/19 21:00 04/23/19 08:43 Fluticasone Propionate (Flonase 0.05% Nasal [place]) 2 spray DAILY NARES 04/10/19 09:00 04/23/19 08:44 Furosemide (Lasix) 40 mg DAILY PO 04/19/19 09:00 04/23/19 08:44 Gemfibrozil (Lopid) 300 mg DAILY@1730 PO 04/10/19 17:30 04/22/19 18:21 Gemfibrozil (Lopid) 600 mg BID@0730,1730 PO 04/09/19 17:30 04/10/19 11:57 DC 04/10/19 08:48 Gemfibrozil (Lopid) 600 mg DAILY@0730 PO 04/11/19 07:30 04/23/19 08:43 Glucagon (Glucagon) 1 mg ASDIRECTED PRN SC SEE LABEL COMMENTS 04/09/19 17:30 Glucose (Glucose) 16 GM ASDIRECTED PRN PO SEE LABEL COMMENTS 04/09/19 17:30 Heparin Sodium (Porcine) (Heparin) 5,000 units Q12H SC 04/09/19 21:00 04/23/19 08:42 Home Med (Med Rec Complete!) ASDIRECTED XX 04/09/19 15:30 04/09/19 15:30 DC Insulin Human Lispro (HumaLOG INSULIN) SEE PROTOCOL TABLE AC SC 04/09/19 17:30 04/23/19 12:06 Insulin Human Lispro (HumaLOG INSULIN) SEE PROTOCOL TABLE QHS SD 04/09/19 21:00 04/16/19 21:28 Iron 200 mg/ Sodium Chloride 110 ml @ 110 mls/hr DAILY IV 04/11/19 09:00 04/14/19 08:59 DC 04/13/19 09:00 Levothyroxine Sodium (Synthroid) 37.5 mcg DAILY@06 PO 04/10/19 06:00 04/23/19 05:42 Loratadine (Claritin) 10 mg DAILY PO 04/10/19 09:00 04/23/19 08:44 Magnesium Hydroxide (Milk Of Magnesia) 30 ml DAILYPRN PRN PO CONSTIPATION 04/09/19 17:00 Magnesium Oxide (Mag-Ox) 400 mg BID PO 04/09/19 21:00 04/23/19 08:43 Metoprolol Succinate (TopROL XL) 100 mg DAILY PO 04/10/19 09:00 04/23/19 08:43 Miscellaneous (Unresolved Clarification Entry) SEE LABEL COMMENTS DAILY XX 04/15/19 09:00 04/16/19 07:22 DC Miscellaneous (Unresolved Clarification Entry) SEE LABEL COMMENTS DAILY XX 04/16/19 09:00 04/16/19 11:25 DC Omeprazole (PriLOSEC) 40 mg BID PO 04/09/19 21:00 04/23/19 08:42 Oxycodone HCl (Roxicodone, Oxyir) 5 mg Q4HP PRN PO PAIN 04/09/19 17:00 04/21/19 15:17 DC 04/10/19 13:12 Senna (Senokot) 1 tab QHS PO 04/09/19 21:00 04/22/19 21:14 Sucralfate (Carafate) 1 gm ACHS PO 04/09/19 17:30 04/19/19 10:15 DC 04/19/19 07:52 Sucralfate (Carafate) 1 gm BID PO 04/19/19 21:00 04/23/19 08:44 Vitamin D (Vitamin D) 2,000 units DAILY PO 04/10/19 09:00 04/23/19 08:44 Zinc Oxide (Boudreauxs Butt Paste) sacrum BID TOP 04/10/19 21:00 04/16/19 11:29 DC 04/15/19 21:48 UBALDO GORMAN MD Apr 23, 2019 16:20
[2019-04-23 20:00] VITALS: BP 135/69
[2019-04-23] MEDS: SENNA 8.6 MG TAB (SENOKOT) PO SCH (21:00)
[2019-04-23] MEDS: allopurinoL 300 MG TAB PO SCH (21:55)
[2019-04-24] MEDS: LEVOTHYROXINE 37.5MCG PER 1/2TAB (0.0375MG) PO SCH (05:59)
[2019-04-24 07:07] LABS: BASO # 0.1 10^3/uL (0.0-0.2); BASO % 1.5 % (0.0-1.0); EOS # 0.2 10^3/uL (0.0-0.5); EOS % 4.4 % (0.0-3.0); HEMATOCRIT 29.1 % (36.0-47.0); HEMOGLOBIN 9.1 g/dl (12.0-15.5); LYMPH # 0.7 10^3/uL (1.5-5.0); LYMPH % 16.4 % (24.0-44.0); MEAN CORPUSCULAR HEMOGLOBIN 32.9 pg (27.0-33.0); MEAN CORPUSCULAR HGB CONC 31.3 g/dl (32.0-36.5); MEAN CORPUSCULAR VOLUME 105.1 fl (80.0-96.0); MONO # 0.5 10^3/uL (0.0-0.8); NEUTROPHILS # 2.7 10^3/uL (1.5-8.5); NEUTROPHILS % 64.7 % (36.0-66.0); PLATELET COUNT, AUTOMATED 250 10^3/uL (150-450); RED BLOOD COUNT 2.77 10^6/uL (4.00-5.40); WHITE BLOOD COUNT 4.1 10^3/uL (4.0-10.0)
[2019-04-24 07:35] LABS: CALCIUM LEVEL 8.4 MG/DL (8.8-10.2); CREATININE FOR GFR 1.45 MG/DL (0.55-1.30); GLOMERULAR FILTRATION RATE 36.9 (>32); PHOSPHORUS LEVEL 3.9 MG/DL (2.5-4.9)
[2019-04-24] MEDS: OYSTER SHELL CALCIUM 500 MG TAB PO SCH ×2 (09:00→20:55)
[2019-04-24] MEDS: ASPIRIN 81 MG ENTERIC TAB PO SCH (09:00)
[2019-04-24] MEDS: MAGNESIUM OXIDE 400 MG TAB (MAG-OX) PO SCH ×2 (09:00→20:55)
[2019-04-24] MEDS: DOCUSATE SODIUM 100 MG CAP PO SCH ×2 (09:00→20:55)
[2019-04-24] MEDS: ACETAMINOPHEN 500 MG TAB PO SCH ×3 (09:00→20:55)
[2019-04-24] MEDS: HEPARIN SOD (PORCINE) 5000 UNITS/ML VIAL SC SCH ×2 (09:01→20:56)
[2019-04-24] MEDS: OMEPRAZOLE 20 MG CAP PO SCH ×2 (09:01→20:55)
[2019-04-24] MEDS: METOPROLOL SUCC (TopROL XL) 100MG *XL* TAB PO SCH (09:01)
[2019-04-24] MEDS: FERROUS GLUCONATE 324 MG TAB PO SCH ×2 (09:01→20:55)
[2019-04-24] MEDS: gemfibroziL 600 MG TAB PO SCH ×2 (09:01→17:55)
[2019-04-24] MEDS: FUROSEMIDE 40 MG TAB PO SCH (09:01)
[2019-04-24] MEDS: LORATADINE 10 MG TAB PO SCH (09:01)
[2019-04-24] MEDS: VITAMIN D 1,000 INTERNATIONAL UNITS TABLET PO SCH (09:01)
[2019-04-24] MEDS: SUCRALFATE 1 GM TAB PO SCH ×2 (09:01→20:55)
[2019-04-24] MEDS: FLUTICASONE PROP 0.05% NASAL SPRAY 16 GM (FLONASE) NARES SCH (09:02)
[2019-04-24] MEDS: HumaLOG INSULIN (NovoLOG) PER UNIT SC SCH ×4 (09:02→20:59)
--- NOTE | 2019-04-24 10:56 | IPNPDOC ---
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 REVIEW OF SYSTEMS: The following is a completed review of systems and has been reviewed. Review of systems otherwise unremarkable. PAIN: Patient self reports left leg pain EYES: No recent vision changes EARS, NOSE, & THROAT: No throat pain, or dysphagia, or rhinorrhea CARDIOVASCULAR: Denies chest pain or palpitations PULMONARY: Denies shortness of breath GASTROINTESTINAL:+constipation (resolve) GENITOURINARY: denies dysuria MUSCULOSKELETAL: left distal femur fracture NEUROLOGICAL:no seizure activity/focal tremor HEMATOLOGICAL:+anemia SKIN: left knee incision, sacral rash PSYCHIATRIC: Unremarkable All other review of systems found to be negative. PHYSICAL EXAMINATION: VITAL SIGNS: Please see below. GENERAL: Pleasant and cooperative. No acute distress. HEENT: PERRL. Extraocular movements intact. Clear conjunctiva CARDIOVASCULAR: Regular rate and rhythm. No murmurs, rubs, or gallops LUNGS: Clear to auscultation bilaterally. No wheezes. No rhonchi ABDOMEN: Soft, nontender, nondistended. Positive bowel sounds. Normal active bowel sounds NEUROLOGICAL: Alert and oriented times three. Cranial nerves II through XII grossly intact. Sensation grossly intact in all 4 extremities EXTREMITIES: 5\5 strength bilateral upper extremities. 5\5 strength right lower extremity. 4/5 strength in left lower ankle DF and EHL and PF (limited exam). LLE edematous SKIN: left knee incision not examined, sacrum with mild erythema Left calf with swelling (improving) and mild erythema (improving) ASSESSMENT:83-year-old F with past medical history of CHF, pulm HTN, CKD who presents status post fall with gurjit-prosthetic distal femur fracture PLAN: 1. PT- strengthen, maintain ROM and stretch RLE, work on balance and household ambulation with RW while NWB for LLE, able to do stand-pivot transfers OT- stengthen, stretch, maintain ROM bilat UE, work on ADL management 2. Ortho: left distal femur gurjit-prosthetic fracture, NWB LLE, extension brace to be worn at all times, ortho consulted- chance removed 2. Neuro: avoid delirogenic meds 3. Cardiac: pmh Afib with recent GI bleed off AC with dual chamber PM, spironolactone on hold due to recent Hyperkalemia, c/u beta-qiana, s/p gentle hydration for TYLER on CKD- medicine consulted to assist with management -HLD- c/u Lopid at lower renal dosing 4. Reps: pmh pulm HTN, encourage incentive spirometry, monitor for infection 5. Endo: Hypothyroid- c/u synthroid 6. GI: recent GI bleed, c/u Prilosec 40 BID and sucralfate with meals, optimize bowel meds - bloody BM on 04/13/19, c/u to monitor and transfuse blood x2 units 7. 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 DVT ppx: hepain and TEDs to RLE, will order dopplers 9. Pain: Tylenol and oxycodone prn, ice 10. Skin: zinc to sacrum 11. Heme: anemia of chronic disease in setting of blood loss due to recent surgery- Hgb 7.8 04/14/19 s/p 2 units, improved to around 9, -monitor for bloody bowel movements, stable, will need GI f/u as outpatient - c/u Venofer per renal 12. Skin: acewrap left foot up to mid-calf and elevate, erythema and swelling improving 11. Dispo: to home, waiting for ramp to be built progressing toward goals, family stating ramp will be done this weekend Allergies Coded Allergies: latex (Verified Allergy, Severe, Anaphylaxis, 10/30/18) [place] (Verified Allergy, Unknown, 10/30/18) codeine (Verified Adverse Reaction, Intermediate, Dizziness, Blurred Vision, Headache, Dry Mouth, 10/30/18) Vital Signs Vital Signs Date Time Temp Pulse Resp B/P (MAP) Pulse Ox O2 Delivery O2 Flow Rate FiO2 04/24/19 09:01 71 152/56 04/24/19 06:00 97.2 18 96 Laboratory Data CBC/BMP Laboratory Tests 04/24/19 06:37 Red Blood Count 2.77 L, Mean Corpuscular Volume 105.1 H, Mean Corpuscular Hemoglobin 32.9, Mean Corpuscular Hemoglobin Concent 31.3 L, Red Cell Distribut ion Width 18.6 H, Neutrophils (%) (Auto) 64.7, Lymphocytes (%) (Auto) 16.4 L, Monocytes (%) (Auto) 12.0 H, Eosinophils (%) (Auto) 4.4 H, Basophils (%) (Auto) 1.5 H, Neutrophils # (Auto) 2.7, Lymphocytes # (Auto) 0.7 L, Monocytes # (Auto) 0.5, Eosinophils # (Auto) 0.2, Basophils # (Auto) 0.1, Anion Gap 10 Labs 24H Laboratory Tests 2 04/23/19 11:46: Bedside Glucose (Misc Panel) 174H 04/23/19 16:36: Bedside Glucose (Misc Panel) 165H 04/23/19 19:39: Bedside Glucose (Misc Panel) 162H 04/24/19 06:32: Bedside Glucose (Misc Panel) 140H 04/24/19 06:37: Immature Granulocyte % (Auto) 1.0, White Blood Count 4.1, Red Blood Count 2.77L, Hemoglobin 9.1L, Hematocrit 29.1L, Mean Corpuscular Volume 105.1H, Mean Corpuscular Hemoglobin 32.9, Mean Corpuscular Hemoglobin Concent 31.3L, Red Cell Distribution Width 18.6H, Platelet Count 250, Neutrophils (%) (Auto) 64.7, Lymphocytes (%) (Auto) 16.4L, Monocytes (%) (Auto) 12.0H, Eosinophils (%) (Auto) 4.4H, Basophils (%) (Auto) 1.5H, Neutrophils # (Auto) 2.7, Lymphocytes # (Auto) 0.7L, Monocytes # (Auto) 0.5, Eosinophils # (Auto) 0.2, Basophils # (Auto) 0.1, Nucleated Red Blood Cells % (auto) 0.0, Blood Urea Nitrogen 61H, Creatinine 1. 45H, Sodium Level 138, Potassium Level 4.0, Chloride Level 105, Carbon Dioxide Level 23, Anion Gap 10, Glomerular Filtration Rate 36.9, Calcium Level 8.4L, Phosphorus Level 3.9, Albumin 3.0L Current Medications Current Medications Current Medications Medications (Trade) Dose Ordered Sig/Kj Route PRN Reason Start Time Stop Time Status Last Admin Dose Admin Acetaminophen (Tylenol Tab) 1,000 mg TID PO 04/09/19 21:00 04/24/19 09:00 Albuterol/ Ipratropium (Duoneb (Ipr 0.5mg/Alb 2.5mg)) 3 ml Q4HP PRN NEB SOB/WHEEZING 04/09/19 17:00 Allopurinol (Zyloprim) 300 mg QHS PO 04/09/19 21:00 04/23/19 21:55 Aspirin (Ecotrin) 81 mg DAILY PO 04/09/19 09:00 04/24/19 09:00 Bisacodyl (Dulcolax Suppository) 10 mg DAILYPRN PRN [place] CONSTIPATION 04/09/19 17:00 Bisacodyl (Dulcolax Suppository) 10 mg ONCE PRN [place] 2 hrs after lactulose if no BM 04/11/19 14:00 04/11/19 16:00 DC Calcium Carbonate (Oscal) 500 mg BID PO 04/09/19 21:00 04/24/19 09:00 Dextrose (Dextrose 50%) 25 ml ASDIRECTED PRN IV SEE LABEL COMMENTS 04/09/19 17:30 Docusate Sodium (Colace) 100 mg BID PO 04/09/19 21:00 04/24/19 09:00 Ferrous Gluconate (Fergon) 324 mg BID PO 04/09/19 21:00 04/24/19 09:01 Fluticasone Propionate (Flonase 0.05% Nasal [place]) 2 spray DAILY NARES 04/10/19 09:00 04/24/19 09:02 Furosemide (Lasix) 40 mg DAILY PO 04/19/19 09:00 04/24/19 09:01 Gemfibrozil (Lopid) 300 mg DAILY@1730 PO 04/10/19 17:30 04/23/19 16:56 Gemfibrozil (Lopid) 600 mg BID@0730,1730 PO 04/09/19 17:30 04/10/19 11:57 DC 04/10/19 08:48 Gemfibrozil (Lopid) 600 mg DAILY@0730 PO 04/11/19 07:30 04/24/19 09:01 Glucagon (Glucagon) 1 mg ASDIRECTED PRN SC SEE LABEL COMMENTS 04/09/19 17:30 Glucose (Glucose) 16 GM ASDIRECTED PRN PO SEE LABEL COMMENTS 04/09/19 17:30 Heparin Sodium (Porcine) (Heparin) 5,000 units Q12H SC 04/09/19 21:00 04/24/19 09:01 Home Med (Med Rec Complete!) ASDIRECTED XX 04/09/19 15:30 04/09/19 15:30 DC Insulin Human Lispro (HumaLOG INSULIN) SEE PROTOCOL TABLE AC SC 04/09/19 17:30 04/24/19 09:02 Insulin Human Lispro (HumaLOG INSULIN) SEE PROTOCOL TABLE QHS SC 04/09/19 21:00 04/16/19 21:28 Iron 200 mg/ Sodium Chloride 110 ml @ 110 mls/hr DAILY IV 04/11/19 09:00 04/14/19 08:59 DC 04/13/19 09:00 Levothyroxine Sodium (Synthroid) 37.5 mcg DAILY@06 PO 04/10/19 06:00 04/24/19 05:59 Loratadine (Claritin) 10 mg DAILY PO 04/10/19 09:00 04/24/19 09:01 Magnesium Hydroxide (Milk Of Magnesia) 30 ml DAILYPRN PRN PO CONSTIPATION 04/09/19 17:00 Magnesium Oxide (Mag-Ox) 400 mg BID PO 04/09/19 21:00 04/24/19 09:00 Metoprolol Succinate (TopROL XL) 100 mg DAILY PO 04/10/19 09:00 04/24/19 09:01 Miscellaneous (Unresolved Clarification Entry) SEE LABEL COMMENTS DAILY XX 04/15/19 09:00 04/16/19 07:22 DC Miscellaneous (Unresolved Clarification Entry) SEE LABEL COMMENTS DAILY XX 04/16/19 09:00 04/16/19 11:25 DC Omeprazole (PriLOSEC) 40 mg BID PO 04/09/19 21:00 04/24/19 09:01 Oxycodone HCl (Roxicodone, Oxyir) 5 mg Q4HP PRN PO PAIN 04/09/19 17:00 04/21/19 15:17 DC 04/10/19 13:12 Senna (Senokot) 1 tab QHS PO 04/09/19 21:00 04/22/19 21:14 Sucralfate (Carafate) 1 gm ACHS PO 04/09/19 17:30 04/19/19 10:15 DC 04/19/19 07:52 Sucralfate (Carafate) 1 gm BID PO 04/19/19 21:00 04/24/19 09:01 Vitamin D (Vitamin D) 2,000 units DAILY PO 04/10/19 09:00 04/24/19 09:01 Zinc Oxide (Boudreauxs Butt Paste) sacrum BID TOP 04/10/19 21:00 04/16/19 11:29 DC 04/15/19 21:48 UBALDO GORMAN MD Apr 24, 2019 10:56
--- NOTE | 2019-04-24 13:24 | IPN ---
DATE: 04/24/2019 SUBJECTIVE: Patient was seen and examined in the rehab unit when she was getting her physical therapy. Her renal function is stable, creatinine is a 1.4. She is tolerating the Lasix dose. She reports that leg edema is improving now. OBJECTIVE: VITAL SIGNS: Temperature is 97.2 degrees Fahrenheit, blood pressure 152/56, pulse is 71, respiratory rate of 18, saturating 96% on room air. INTAKE AND OUTPUT: Urine output is not recorded. She is having incontinent voids weight on the bed scale is not available. PHYSICAL EXAMINATION: GENERAL: The patient is awake, alert, oriented times three, sitting in the wheelchair in no apparent distress. HEAD AND NECK EXAM: Extraocular muscles intact. Pupils equally round and reactive to light. Mucous membranes are moist. Neck is supple. There is no jugular venous distention (JVD). CARDIOVASCULAR: S1 and S2 regular rate, 1+ edema of the bilateral lower extremities. RESPIRATORY: Chest is clear to auscultation bilaterally. Bilateral equal air entry. No rales or rhonchi. ABDOMEN: Soft, obese, positive bowel sounds. MUSCULOSKELETAL: She has a brace on the left leg. Edema in the left leg is also improving. There are sutures above the left knee. COFFEE SAMPLER: No focal deficit. Power is 5/5 in bilateral upper extremities. LAB REVIEW: CBC showed a WBC of 4.1, hemoglobin 9.1, platelets are 250. BMP showed sodium 138, potassium 4, chloride 105, bicarb 23, BUN 61, creatinine is 1.45, phosphorus 3.9, albumin is 3. CURRENT INPATIENT MEDICATIONS: The patient's medications were all reviewed by me. There is no change in the medications today as compared with yesterday. ASSESSMENT/PLAN: 1. Chronic kidney disease stage III. Patient's renal function is stable. She is tolerating the dose of diuretics. Creatinine has been fluctuating at around 1.4. 2. Chronic diastolic congestive heart failure. Volume status is improving. Continue current dose of Lasix 40 mg p.o. daily. 3. Iron-deficiency anemia. Hemoglobin level is staying stable. Continue oral iron. 4. Hypertension, blood pressure is controlled. Continue current dose of Toprol XL 100 mg p.o. daily The patient's renal function is stable. She is tolerating the diuretics dose. Edema is improving. Nephrology service is going to sign off at this moment. Please call nephrology service for any help in the management of this patient during this hospitalization.
[2019-04-24 14:00] VITALS: BP 142/65
[2019-04-24 20:00] VITALS: BP 150/70
[2019-04-24] MEDS: SENNA 8.6 MG TAB (SENOKOT) PO SCH (20:55)
[2019-04-24] MEDS: allopurinoL 300 MG TAB PO SCH (20:55)
[2019-04-25] MEDS: LEVOTHYROXINE 37.5MCG PER 1/2TAB (0.0375MG) PO SCH (05:30)
[2019-04-25 06:24] VITALS: BP 154/64
[2019-04-25] MEDS: HumaLOG INSULIN (NovoLOG) PER UNIT SC SCH ×4 (08:36→21:00)
[2019-04-25] MEDS: HEPARIN SOD (PORCINE) 5000 UNITS/ML VIAL SC SCH ×2 (08:36→21:46)
[2019-04-25] MEDS: SUCRALFATE 1 GM TAB PO SCH ×2 (08:36→21:46)
[2019-04-25] MEDS: METOPROLOL SUCC (TopROL XL) 100MG *XL* TAB PO SCH (08:36)
[2019-04-25] MEDS: ACETAMINOPHEN 500 MG TAB PO SCH ×3 (08:37→21:46)
[2019-04-25] MEDS: DOCUSATE SODIUM 100 MG CAP PO SCH ×2 (08:37→21:46)
[2019-04-25] MEDS: MAGNESIUM OXIDE 400 MG TAB (MAG-OX) PO SCH ×2 (08:37→21:47)
[2019-04-25] MEDS: OYSTER SHELL CALCIUM 500 MG TAB PO SCH ×2 (08:37→21:46)
[2019-04-25] MEDS: FERROUS GLUCONATE 324 MG TAB PO SCH ×2 (08:37→21:46)
[2019-04-25] MEDS: gemfibroziL 600 MG TAB PO SCH ×2 (08:37→17:56)
[2019-04-25] MEDS: OMEPRAZOLE 20 MG CAP PO SCH ×2 (08:38→21:46)
[2019-04-25] MEDS: ASPIRIN 81 MG ENTERIC TAB PO SCH (08:38)
[2019-04-25] MEDS: VITAMIN D 1,000 INTERNATIONAL UNITS TABLET PO SCH (08:38)
[2019-04-25] MEDS: FLUTICASONE PROP 0.05% NASAL SPRAY 16 GM (FLONASE) NARES SCH (08:39)
[2019-04-25] MEDS: FUROSEMIDE 40 MG TAB PO SCH (08:44)
[2019-04-25] MEDS: LORATADINE 10 MG TAB PO SCH (08:47)
[2019-04-25 16:35] VITALS: BP 140/66
[2019-04-25 20:00] VITALS: BP 148/65
[2019-04-25] MEDS: SENNA 8.6 MG TAB (SENOKOT) PO SCH (21:46)
[2019-04-25] MEDS: allopurinoL 300 MG TAB PO SCH (21:46)
[2019-04-26 04:00] VITALS: BP 153/66
[2019-04-26] MEDS: LEVOTHYROXINE 37.5MCG PER 1/2TAB (0.0375MG) PO SCH (05:55)
[2019-04-26] MEDS: OMEPRAZOLE 20 MG CAP PO SCH ×2 (08:34→21:54)
[2019-04-26] MEDS: HEPARIN SOD (PORCINE) 5000 UNITS/ML VIAL SC SCH ×2 (08:34→21:54)
[2019-04-26] MEDS: HumaLOG INSULIN (NovoLOG) PER UNIT SC SCH ×4 (08:34→21:00)
[2019-04-26] MEDS: ACETAMINOPHEN 500 MG TAB PO SCH ×3 (08:35→21:54)
[2019-04-26] MEDS: FUROSEMIDE 40 MG TAB PO SCH (08:36)
[2019-04-26] MEDS: LORATADINE 10 MG TAB PO SCH (08:36)
[2019-04-26] MEDS: DOCUSATE SODIUM 100 MG CAP PO SCH ×2 (08:36→21:54)
[2019-04-26] MEDS: OYSTER SHELL CALCIUM 500 MG TAB PO SCH ×2 (08:36→21:55)
[2019-04-26] MEDS: ASPIRIN 81 MG ENTERIC TAB PO SCH (08:36)
[2019-04-26] MEDS: MAGNESIUM OXIDE 400 MG TAB (MAG-OX) PO SCH ×2 (08:36→21:54)
[2019-04-26] MEDS: gemfibroziL 600 MG TAB PO SCH ×2 (08:37→17:30)
[2019-04-26] MEDS: SUCRALFATE 1 GM TAB PO SCH ×2 (08:37→21:54)
[2019-04-26] MEDS: VITAMIN D 1,000 INTERNATIONAL UNITS TABLET PO SCH (08:37)
[2019-04-26] MEDS: METOPROLOL SUCC (TopROL XL) 100MG *XL* TAB PO SCH (08:37)
[2019-04-26] MEDS: FERROUS GLUCONATE 324 MG TAB PO SCH ×2 (08:37→21:55)
[2019-04-26] MEDS: FLUTICASONE PROP 0.05% NASAL SPRAY 16 GM (FLONASE) NARES SCH (08:46)
[2019-04-26 14:00] VITALS: BP 140/85
[2019-04-26 20:00] VITALS: BP 154/67
[2019-04-26] MEDS: SENNA 8.6 MG TAB (SENOKOT) PO SCH (21:54)
[2019-04-26] MEDS: allopurinoL 300 MG TAB PO SCH (21:55)
[2019-04-27 04:00] VITALS: BP 132/66
[2019-04-27] MEDS: LEVOTHYROXINE 37.5MCG PER 1/2TAB (0.0375MG) PO SCH (05:33)
[2019-04-27] MEDS: VITAMIN D 1,000 INTERNATIONAL UNITS TABLET PO SCH (08:25)
[2019-04-27] MEDS: LORATADINE 10 MG TAB PO SCH (08:25)
[2019-04-27] MEDS: METOPROLOL SUCC (TopROL XL) 100MG *XL* TAB PO SCH (08:25)
[2019-04-27] MEDS: HEPARIN SOD (PORCINE) 5000 UNITS/ML VIAL SC SCH ×2 (08:25→22:18)
[2019-04-27] MEDS: SUCRALFATE 1 GM TAB PO SCH ×2 (08:26→22:18)
[2019-04-27] MEDS: ACETAMINOPHEN 500 MG TAB PO SCH ×3 (08:26→22:19)
[2019-04-27] MEDS: OMEPRAZOLE 20 MG CAP PO SCH ×2 (08:26→22:19)
[2019-04-27] MEDS: DOCUSATE SODIUM 100 MG CAP PO SCH ×2 (08:26→21:00)
[2019-04-27] MEDS: ASPIRIN 81 MG ENTERIC TAB PO SCH (08:26)
[2019-04-27] MEDS: FUROSEMIDE 40 MG TAB PO SCH (08:26)
[2019-04-27] MEDS: MAGNESIUM OXIDE 400 MG TAB (MAG-OX) PO SCH ×2 (08:26→22:19)
[2019-04-27] MEDS: FERROUS GLUCONATE 324 MG TAB PO SCH ×2 (08:26→22:19)
[2019-04-27] MEDS: gemfibroziL 600 MG TAB PO SCH ×2 (08:26→16:55)
[2019-04-27] MEDS: HumaLOG INSULIN (NovoLOG) PER UNIT SC SCH ×4 (08:27→21:00)
[2019-04-27] MEDS: OYSTER SHELL CALCIUM 500 MG TAB PO SCH ×2 (08:27→22:19)
[2019-04-27] MEDS: FLUTICASONE PROP 0.05% NASAL SPRAY 16 GM (FLONASE) NARES SCH (08:33)
--- NOTE | 2019-04-27 13:38 | IPNPDOC ---
Subjective Date Seen The patient was seen on 04/27/19. Subjective Chief Complaint/HPI Patient lying comfortably in her bed, offers no new complaints at the present time General: Denies: ROS Unobtainable, Chills, Night Sweats, Fatigue, Malaise, Normal Appetite, Other Symptoms Constitutional: Denies: Chills, Fever, Malaise, Night Sweats, Weakness, Fatigue, Weight Loss, Lethargy, Other Skin: Denies: Rash, Lesions, Jaundice, Bruising, Itching, Dry, Breakdown, Nail Changes, Other Pulmonary: Denies: Dyspnea, Cough, Pleuritic Chest Pain, Other Symptoms Cardiovascular: Denies: Chest Pain, Palpitations, Orthopnea, Paroxysmal Noc. Dyspnea, Edema, Lt Headedness, Other Symptoms Gastrointestinal: Denies: Nausea, Vomiting, Abdominal Pain, Diarrhea, Constipation, Melena, Hematochezia, Other Symptoms Musculoskeletal: Denies: Neck Pain, Back Pain, Shoulder Pain, Arm Pain, Hand Pain, Leg Pain, Foot Pain, Joint Pain, Muscle Pain, Spasms, Other Symptoms Neurological: Denies: Weakness, Numbness, Incoordination, Change in speech, Confusion, Seizures, Other Symptoms Objective Physical Examination General Exam: Positive: Alert, Cooperative Eye Exam: Positive: PERRLA, Conjunctiva & lids normal ENT Exam: Positive: Atraumatic, Mucous membr. moist/pink Chest Exam: Positive: Clear to auscultation, Normal air movement Heart Exam: Positive: Normal S1, Normal S2 Abdomen Exam: Positive: Normal bowel sounds, Soft Extremity Exam: Positive: Normal pulses Skin Exam: Positive: Nl turgor and temperature Neuro Exam: Positive: Sensation Intact Psych Exam: Positive: Mental status NL, Mood NL, Oriented x 3 Assessment /Plan Problems (1) Femur fracture Status: Acute Problem Text: Left distal fibular fracture status post mechanical fall Pain management Physical therapy in progress On aspirin and subcutaneous heparin As per physical therapy and orthopedics (2) HTN (hypertension) Status: Chronic Problem Text: Under well control Continue Toprol 100 mg by mouth daily (3) A-fib Status: Chronic Problem Text: paroxysmal atrial fibrillation History of complete AV block with permanent pacemaker Continue metoprolol Anticoagulation contraindicated secondary to GI bleed Continue aspirin (4) Renal failure Status: Acute Problem Text: Nephrology follow-up appreciated Chronic kidney disease stage III Should renal function is stable He is tolerating 40 mg of Lasix by mouth daily Baseline creatinine about 1.4 (5) Anemia Status: Acute Problem Text: Iron deficiency anemia Hemoglobin stable Continue oral iron supplement (6) Diabetes mellitus Status: Chronic Problem Text: Continue present medications (7) Rheumatoid arthritis Status: Chronic Problem Text: Continue oxycodone and Tylenol (8) CHF (congestive heart failure) Status: Chronic Problem Text: Chronic diastolic congestive heart failure Volume status improved Continue Lasix 40 mg by mouth daily Plan/VTE VTE Prophylaxis Ordered?: Yes VS, I&O, 24H, Fishbone Vital Signs/I&O Vital Signs Date Time Temp Pulse Resp B/P (MAP) Pulse Ox O2 Delivery O2 Flow Rate FiO2 04/27/19 08:25 77 132/66 04/27/19 04:00 98.2 17 100 I&O- Last 24 Hours up to 6 AM 04/27/19 06:00 Intake Total 900 ml Balance 900 ml Laboratory Data 24H LABS Laboratory Tests 2 04/26/19 16:51: Bedside Glucose (Misc Panel) 174H 04/26/19 19:23: Bedside Glucose (Misc Panel) 242H 04/27/19 06:43: Bedside Glucose (Misc Panel) 177H 04/27/19 11:39: Bedside Glucose (Misc Panel) 212H HILLARY GARSIA MD Apr 27, 2019 13:38
[2019-04-27 14:00] VITALS: BP 135/62
[2019-04-27 20:00] VITALS: BP 127/60
[2019-04-27] MEDS: SENNA 8.6 MG TAB (SENOKOT) PO SCH (21:00)
[2019-04-27] MEDS: allopurinoL 300 MG TAB PO SCH (22:19)
[2019-04-28 06:00] VITALS: BP 132/63
[2019-04-28] MEDS: LEVOTHYROXINE 37.5MCG PER 1/2TAB (0.0375MG) PO SCH (06:22)
[2019-04-28] MEDS: HumaLOG INSULIN (NovoLOG) PER UNIT SC SCH ×2 (08:10→12:10)
[2019-04-28] MEDS: ASPIRIN 81 MG ENTERIC TAB PO SCH (08:10)
[2019-04-28] MEDS: OYSTER SHELL CALCIUM 500 MG TAB PO SCH (08:10)
[2019-04-28] MEDS: DOCUSATE SODIUM 100 MG CAP PO SCH (08:10)
[2019-04-28] MEDS: SUCRALFATE 1 GM TAB PO SCH (08:10)
[2019-04-28] MEDS: MAGNESIUM OXIDE 400 MG TAB (MAG-OX) PO SCH (08:10)
[2019-04-28] MEDS: FERROUS GLUCONATE 324 MG TAB PO SCH (08:10)
[2019-04-28 08:11] VITALS: BP 132/63
[2019-04-28] MEDS: gemfibroziL 600 MG TAB PO SCH (08:11)
[2019-04-28] MEDS: LORATADINE 10 MG TAB PO SCH (08:11)
[2019-04-28] MEDS: METOPROLOL SUCC (TopROL XL) 100MG *XL* TAB PO SCH (08:11)
[2019-04-28] MEDS: FUROSEMIDE 40 MG TAB PO SCH (08:11)
[2019-04-28] MEDS: VITAMIN D 1,000 INTERNATIONAL UNITS TABLET PO SCH (08:12)
[2019-04-28] MEDS: HEPARIN SOD (PORCINE) 5000 UNITS/ML VIAL SC SCH (08:12)
[2019-04-28] MEDS: ACETAMINOPHEN 500 MG TAB PO SCH (08:12)
[2019-04-28] MEDS: OMEPRAZOLE 20 MG CAP PO SCH (08:12)
[2019-04-28] MEDS: FLUTICASONE PROP 0.05% NASAL SPRAY 16 GM (FLONASE) NARES SCH (08:14)
[2019-04-28] MEDS ORDERED: FERR32TA PO (08:50)
[2019-04-28] MEDS ORDERED: ASPI81TAEC PO (08:50)
[2019-04-28] MEDS ORDERED: GEMF600T5 PO ×2 (08:50)
[2019-04-28] MEDS ORDERED: SUCR1TA PO (08:50)
[2019-04-28] MEDS ORDERED: FURO40TA2 PO (08:50)
[2019-04-28] MEDS ORDERED: LEVO75TA4 PO (08:50)
[2019-04-28] MEDS ORDERED: METO1TAB33 PO (08:50)
[2019-04-28] MEDS ORDERED: CHOL100029 PO (08:50)
[2019-04-28] MEDS ORDERED: ZYLO300T6 PO (08:50)
[2019-04-28] MEDS ORDERED: OMEP-218 PO (08:50)
[2019-04-28] MEDS ORDERED: FLUBLOK(EGG FREE)(QUAD)INFLUENZA VACC 0.5ML SYRINGE (90682)18YRS&OLDER IM ONE (12:00)
--- NOTE | 2019-04-28 14:18 | IPNPDOC ---
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 REVIEW OF SYSTEMS: The following is a completed review of systems and has been reviewed. Review of systems otherwise unremarkable. PAIN: Patient self reports left leg pain EYES: No recent vision changes EARS, NOSE, & THROAT: No throat pain, or dysphagia, or rhinorrhea CARDIOVASCULAR: Denies chest pain or palpitations PULMONARY: Denies shortness of breath GASTROINTESTINAL:+constipation (resolve) GENITOURINARY: denies dysuria MUSCULOSKELETAL: left distal femur fracture NEUROLOGICAL:no seizure activity/focal tremor HEMATOLOGICAL:+anemia SKIN: left knee incision, sacral rash PSYCHIATRIC: Unremarkable All other review of systems found to be negative. PHYSICAL EXAMINATION: VITAL SIGNS: Please see below. GENERAL: Pleasant and cooperative. No acute distress. HEENT: PERRL. Extraocular movements intact. Clear conjunctiva CARDIOVASCULAR: Regular rate and rhythm. No murmurs, rubs, or gallops LUNGS: Clear to auscultation bilaterally. No wheezes. No rhonchi ABDOMEN: Soft, nontender, nondistended. Positive bowel sounds. Normal active bowel sounds NEUROLOGICAL: Alert and oriented times three. Cranial nerves II through XII grossly intact. Sensation grossly intact in all 4 extremities EXTREMITIES: 5\5 strength bilateral upper extremities. 5\5 strength right lower extremity. 4/5 strength in left lower ankle DF and EHL and PF (limited exam). LLE edematous SKIN: left knee incision not examined, sacrum with mild erythema Left calf with swelling (improving) and mild erythema (improving) ASSESSMENT:83-year-old F with past medical history of CHF, pulm HTN, CKD who pr esents status post fall with gurjit-prosthetic distal femur fracture PLAN: 1. PT- strengthen, maintain ROM and stretch RLE, work on balance and household ambulation with RW while NWB for LLE, able to do stand-pivot transfers OT- stengthen, stretch, maintain ROM bilat UE, work on ADL management 2. Ortho: left distal femur gurjit-prosthetic fracture, NWB LLE, extension brace to be worn at all times, ortho consulted- chance removed 2. Neuro: avoid delirogenic meds 3. Cardiac: pmh Afib with recent GI bleed off AC with dual chamber PM, spironolactone on hold due to recent Hyperkalemia, c/u beta-qiana, s/p gentle hydration for TYLER on CKD- medicine consulted to assist with management -HLD- c/u Lopid at lower renal dosing 4. Reps: pmh pulm HTN, encourage incentive spirometry, monitor for infection 5. Endo: Hypothyroid- c/u synthroid 6. GI: recent GI bleed, c/u Prilosec 40 BID and sucralfate with meals, optimize bowel meds - bloody BM on 04/13/19, c/u to monitor and transfuse blood x2 units 7. 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 DVT ppx: hepain and TEDs to RLE, will order dopplers 9. Pain: Tylenol and oxycodone prn, ice 10. Skin: zinc to sacrum 11. Heme: anemia of chronic disease in setting of blood loss due to recent surgery- Hgb 7.8 04/14/19 s/p 2 units, improved to around 9, -monitor for bloody bowel movements, stable, will need GI f/u as outpatient - c/u Venofer per renal 12. Skin: acewrap left foot up to mid-calf and elevate, erythema and swelling improving 11. Dispo: to home, waiting for ramp to be built progressing toward goals, family stating ramp will be done this weekend Allergies Coded Allergies: latex (Verified Allergy, Severe, Anaphylaxis, 10/30/18) [place] (Verified Allergy, Unknown, 10/30/18) codeine (Verified Adverse Reaction, Intermediate, Dizziness, Blurred Vision, Headache, Dry Mouth, 10/30/18) Vital Signs Vital Signs Date Time Temp Pulse Resp B/P (MAP) Pulse Ox O2 Delivery O2 Flow Rate FiO2 04/28/19 08:11 62 132/63 04/28/19 06:00 97.5 18 96 Laboratory Data Labs 24H Laboratory Tests 2 04/27/19 16:38: Bedside Glucose (Misc Panel) 173H 04/27/19 20:49: Bedside Glucose (Misc Panel) 209H 04/28/19 07:19: Bedside Glucose (Misc Panel) 175H 04/28/19 11:40: Bedside Glucose (Misc Panel) 223H Current Medications Current Medications Current Medications Medications (Trade) Dose Ordered Sig/Kj Route PRN Reason Start Time Stop Time Status Last Admin Dose Admin Acetaminophen (Tylenol Tab) 1,000 mg TID PO 04/09/19 21:00 04/28/19 08:12 Albuterol/ Ipratropium (Duoneb (Ipr 0.5mg/Alb 2.5mg)) 3 ml Q4HP PRN NEB SOB/WHEEZING 04/09/19 17:00 Allopurinol (Zyloprim) 300 mg QHS PO 04/09/19 21:00 04/27/19 22:19 Aspirin (Ecotrin) 81 mg DAILY PO 04/09/19 09:00 04/28/19 08:10 Bisacodyl (Dulcolax Suppository) 10 mg DAILYPRN PRN OR CONSTIPATION 04/09/19 17:00 Bisacodyl (Dulcolax Suppository) 10 mg ONCE PRN OR 2 hrs after lactulose if no BM 04/11/19 14:00 04/11/19 16:00 DC Calcium Carbonate (Oscal) 500 mg BID PO 04/09/19 21:00 04/28/19 08:10 Dextrose (Dextrose 50%) 25 ml ASDIRECTED PRN IV SEE LABEL COMMENTS 04/09/19 17:30 Docusate Sodium (Colace) 100 mg BID PO 04/09/19 21:00 04/28/19 08:10 Ferrous Gluconate (Fergon) 324 mg BID PO 04/09/19 21:00 04/28/19 08:10 Fluticasone Propionate (Flonase 0.05% Nasal [place]) 2 spray DAILY NARES 04/10/19 09:00 04/28/19 08:14 Furosemide (Lasix) 40 mg DAILY PO 04/19/19 09:00 04/28/19 08:11 Gemfibrozil (Lopid) 300 mg DAILY@1730 PO 04/10/19 17:30 04/27/19 16:55 Gemfibrozil (Lopid) 600 mg BID@0730,1730 PO 04/09/19 17:30 9/5/19 11:57 DC 04/10/19 08:48 Gemfibrozil (Lopid) 600 mg DAILY@0730 PO 04/11/19 07:30 04/28/19 08:11 Glucagon (Glucagon) 1 mg ASDIRECTED PRN SC SEE LABEL COMMENTS 04/09/19 17:30 Glucose (Glucose) 16 GM ASDIRECTED PRN PO SEE LABEL COMMENTS 04/09/19 17:30 Heparin Sodium (Porcine) (Heparin) 5,000 units Q12H SC 04/09/19 21:00 04/27/19 22:18 Home Med (Med Rec Complete!) ASDIRECTED XX 04/09/19 15:30 04/09/19 15:30 DC Insulin Human Lispro (HumaLOG INSULIN) SEE PROTOCOL TABLE AC SC 04/09/19 17:30 04/28/19 12:10 Insulin Human Lispro (HumaLOG INSULIN) SEE PROTOCOL TABLE QHS SC 04/09/19 21:00 04/16/19 21:28 Iron 200 mg/ Sodium Chloride 110 ml @ 110 mls/hr DAILY IV 04/11/19 09:00 04/14/19 08:59 DC 04/13/19 09:00 Levothyroxine Sodium (Synthroid) 37.5 mcg DAILY@06 PO 04/10/19 06:00 04/28/19 06:22 Loratadine (Claritin) 10 mg DAILY PO 04/10/19 09:00 04/28/19 08:11 Magnesium Hydroxide (Milk Of Magnesia) 30 ml DAILYPRN PRN PO CONSTIPATION 04/09/19 17:00 Magnesium Oxide (Mag-Ox) 400 mg BID PO 04/09/19 21:00 04/28/19 08:10 Metoprolol Succinate (TopROL XL) 100 mg DAILY PO 04/10/19 09:00 04/28/19 08:11 Miscellaneous (Unresolved Clarification Entry) SEE LABEL COMMENTS DAILY XX 04/15/19 09:00 04/16/19 07:22 DC Miscellaneous (Unresolved Clarification Entry) SEE LABEL COMMENTS DAILY XX 04/16/19 09:00 04/16/19 11:25 DC Miscellaneous (Unresolved Clarification Entry) SEE LABEL COMMENTS DAILY XX 04/27/19 09:00 04/28/19 07:38 DC Miscellaneous (Unresolved Clarification Entry) SEE LABEL COMMENTS DAILY XX 04/28/19 09:00 Omeprazole (PriLOSEC) 40 mg BID PO 04/09/19 21:00 04/28/19 08:12 Oxycodone HCl (Roxicodone, Oxyir) 5 mg Q4HP PRN PO PAIN 04/09/19 17:00 04/21/19 15:17 DC 04/10/19 13:12 Senna (Senokot) 1 tab QHS PO 04/09/19 21:00 04/26/19 21:54 Sucralfate (Carafate) 1 gm ACHS PO 04/09/19 17:30 04/19/19 10:15 DC 04/19/19 07:52 Sucralfate (Carafate) 1 gm BID PO 04/19/19 21:00 04/28/19 08:10 Vitamin D (Vitamin D) 2,000 units DAILY PO 04/10/19 09:00 04/28/19 08:12 Zinc Oxide (Boudreauxs Butt Paste) sacrum BID TOP 04/10/19 21:00 04/16/19 11:29 DC 04/15/19 21:48 UBALDO GORMAN MD Apr 28, 2019 14:18
--- NOTE | 2019-05-12 16:27 | PMRDS ---
DATE OF ADMISSION: 04/09/2019 DATE OF DISCHARGE: 04/28/2019 CHIEF COMPLAINT/DISCHARGE DIAGNOSIS: Distal femur periprosthetic fracture. HISTORY OF PRESENT ILLNESS: This is an 83-year-old female, past medical history atrial fibrillation (AFib) off angiotensin-converting enzyme (TROY) inhibitor secondary to gastrointestinal (GI) bleed, congestive heart failure (CHF) with severe pulmonary hypertension, hyperlipidemia, peptic ulcer disease, chronic kidney disease (CKD), rheumatoid arthritis (RA), diabetes, hypothyroidism, complete atrioventricular (AV) block with pacemaker, hypertension, anemia of chronic disease who fell at home while walking down stairs and presented to [facility] emergency department (ED) on complaining of left leg pain. CT showed "mildly displaced oblique fracture through the distal femoral metadiaphysis with soft tissue injuries and joint effusion" for which ortho was consulted. She had hypokalemia, which was treated with intravenous (IV) Lasix in preparation for surgery. On 04/06/2019, the patient underwent an open reduction, internal fixation (ORIF) with retrograde intramedullary nailing of the left periarticular distal femur fracture above a total knee replacement. She was placed in a knee extension brace and made non-weightbearing. She developed acute kidney injury (TYLER) on CKD for which she received continuous IV fluids, was evaluated by therapy and found to be well below her prior level of function and deemed medically appropriate for discharge to acute rehabilitation unit (ARU) on 04/09/2019. PAST MEDICAL HISTORY: As per history of present illness (HPI). HOSPITAL COURSE: The patient was admitted and enrolled in a comprehensive physical therapy (PT), occupational therapy (OT) program. She received 24-hour nursing supervision and weekly team meetings were held to discuss her progress. The patient was able to for the most part maintain her non-weightbearing status to the left lower extremity. On initial presentation, the patient continued to have TYLER on CKD and received more gentle IV duration. Ultrasound was done of her kidneys, which showed no hydronephrosis. She was followed by renal while she was here, who ultimately placed her on Lasix daily after period of discontinuing it. She received 2 units of red blood cells (RBCs) in the setting of anemia of chronic disease and had one bloody bowel movement during her hospital course, which resolved. She remained hemodynamically stable as well. She had left lower extremity swelling, which improved with Troy wrapping and elevation. She was maintained on Prilosec 40 mg twice a day and sucralfate in the setting of a recent GI bleed, and she overall made significant gains in therapy deemed medically and functionally appropriate to return home. DISCHARGE MEDICATIONS: As per discharge instructions. FUNCTIONAL HISTORY: On discharge, the patient was modified independent at times and other times standby assist for functional transfers, able to propel her wheelchair 200 feet, modified independent from a wheelchair level. In occupational therapy, she was independent with eating, toileting, mod assist for lower extremity dressing and min assist for lower body dressing. The patient was deemed functionally stable to home return home with 26/02 supervision.
[2019-05-20] MEDS ORDERED: SPIR-10 PO (11:10)
[2019-05-20] MEDS ORDERED: FURO40TA2 PO ×2 (11:10→11:13)
[2019-05-20] MEDS ORDERED: LORA-674 PO (11:10)
[2019-05-20] MEDS ORDERED: KLOR20TA42 PO (11:11)
[2019-06-21] MEDS ORDERED: ONDA-83 PO (12:53)
== END 2019-04-28 14:00 | disposition home health service (06) | DRG 559 ==
LOC: M PM&R 14:55
PROVIDERS: ADMIT Physical Medicine & Rehabilitation; ATTEND Physical Medicine & Rehabilitation
PROC: 30233N1 Transfusion of Nonautologous Red Blood Cells into Peripheral Vein, Percutaneous Approach (ICD-10-PCS; principal; 2019-04-14)
DX: M97.12XD Periprosthetic fracture around internal prosthetic left knee joint, subsequent encounter (principal); I50.33 Acute on chronic diastolic (congestive) heart failure; I13.0 Hypertensive heart and chronic kidney disease with heart failure and stage 1 through stage 4 chronic kidney disease, or unspecified chronic kidney disease; Z68.41 Body mass index [BMI] 40.0-44.9, adult; D62 Acute posthemorrhagic anemia; S72.332D Displaced oblique fracture of shaft of left femur, subsequent encounter for closed fracture with routine healing; W10.8XXD Fall (on) (from) other stairs and steps, subsequent encounter; Y92.008 Other place in unspecified non-institutional (private) residence as the place of occurrence of the external cause; I48.0 Paroxysmal atrial fibrillation; I27.29 Other secondary pulmonary hypertension; E78.5 Hyperlipidemia, unspecified; K28.9 Gastrojejunal ulcer, unspecified as acute or chronic, without hemorrhage or perforation; E55.9 Vitamin D deficiency, unspecified; D63.1 Anemia in chronic kidney disease; K64.8 Other hemorrhoids; K59.00 Constipation, unspecified; R33.9 Retention of urine, unspecified; N18.3 Chronic kidney disease, stage 3 (moderate); M06.9 Rheumatoid arthritis, unspecified; E11.22 Type 2 diabetes mellitus with diabetic chronic kidney disease; K57.90 Diverticulosis of intestine, part unspecified, without perforation or abscess without bleeding; E66.01 Morbid (severe) obesity due to excess calories; I50.810 Right heart failure, unspecified; E03.9 Hypothyroidism, unspecified; E87.6 Hypokalemia; Z95.0 Presence of cardiac pacemaker; M10.30 Gout due to renal impairment, unspecified site; Z90.49 Acquired absence of other specified parts of digestive tract; Z87.891 Personal history of nicotine dependence; Z79.899 Other long term (current) drug therapy; Z91.040 Latex allergy status; Z88.5 Allergy status to narcotic agent; Z91.048 Other nonmedicinal substance allergy status

== ENCOUNTER 2019-06-21 12:38 | Inpatient (IN) | payer MEDICARE, OTHER ==
[~2019-06-21] VITALS: Ht 149.9 cm; Wt 81.8 kg
[~2019-06-21 12:38] MED LIST changes: +CHOL100029 PO; +FERR32TA PO; +GLIM2TAB2 PO; -GLIM2TAB4 PO; +KLOR20TA42 PO; +LORA-674 PO; -OMEP1CAP73 PO; +OMEP20CA4 PO
[2019-06-21] MEDS ORDERED: GLIM2TAB29 PO (12:53)
[2019-06-21] MEDS ORDERED: GEMF600T5 PO (12:53)
[2019-06-21] MEDS ORDERED: ONDA4TAB5 PO (12:53)
[2019-06-21 13:09] LABS: BASO % 0.3 % (0.0-1.0); EOS % 0.5 % (0.0-3.0); HEMATOCRIT 43.1 % (36.0-47.0); LYMPH # 1.2 10^3/uL (1.5-5.0); LYMPH % 15.8 % (24.0-44.0); MEAN CORPUSCULAR HGB CONC 32.5 g/dl (32.0-36.5); MEAN CORPUSCULAR VOLUME 95.4 fl (80.0-96.0); MONO # 0.6 10^3/uL (0.0-0.8); MONO % 7.5 % (0.0-5.0); NEUTROPHILS # 5.5 10^3/uL (1.5-8.5); NEUTROPHILS % 75.5 % (36.0-66.0); PLATELET COUNT, AUTOMATED 250 10^3/uL (150-450); RED BLOOD COUNT 4.52 10^6/uL (4.00-5.40); WHITE BLOOD COUNT 7.3 10^3/uL (4.0-10.0)
[2019-06-21 13:34] LABS: INR 1.24; PROTHROMBIN TIME 15.3 SECONDS (11.8-14.0)
[2019-06-21 13:35] LABS: PARTIAL THROMBOPLASTIN TIME 36.6 SECONDS (25.0-38.4)
[2019-06-21 13:39] LABS: ALBUMIN 4.5 GM/DL (3.2-5.2); BILIRUBIN,DIRECT 0.7 MG/DL (0.0-0.2); CALCIUM LEVEL 10.6 MG/DL (8.8-10.2); CREATININE FOR GFR 4.42 MG/DL (0.55-1.30); GLOMERULAR FILTRATION RATE 10.2 (>32); MB/CK RELATIVE INDEX 2.42 (< OR =4); POTASSIUM SERUM 5.6 MEQ/L (3.5-5.1); THYROID STIMULATING HORMONE 8.44 uIU/ML (0.358-3.740); TOTAL PROTEIN 8.9 GM/DL (6.4-8.2); TROPONIN I 0.04 NG/ML (< 0.10)
--- NOTE | 2019-06-21 14:21 | REP ---
Chest x-ray: Two views. History: Trauma. Comparison study: April 05, 2019. Findings: Monitoring electrodes overlie the chest. There is a bipolar pacemaker in the right heart via the left side as before. Heart is not felt to be enlarged. No infiltrate is seen. There is no evidence of pleural effusion or pulmonary edema. No pneumothorax is seen. Impression: Pacemaker in place. Otherwise no acute disease. Electronically Signed by William Ortega MD 06/21/2019 02:12 P
[2019-06-21] MEDS: NS 1,000 ML IV SCH ×2 (14:25→20:58)
[2019-06-21] MEDS ORDERED: SOD POLYSTYRENE SULFONATE SUSP 15 GM/60 ML UD PO ONE (14:30)
[2019-06-21] MEDS ORDERED: NS 1,000 ML IV ONE (14:30)
[2019-06-21] MEDS ORDERED: CALCIUM GLUCONATE 1,000 MG in D5W MINI-BAG PLUS 100 ML IV ONE (14:30)
--- NOTE | 2019-06-21 14:34 | REP ---
CT BRAIN WITHOUT CONTRAST: HISTORY: Trauma. COMPARISON: Head CT study, October 04, 2018. FINDINGS: Digital preliminary roll contour grinder radiograph is unremarkable. The patient is edentulous. The bony calvarium is intact on bone window settings. There is vascular calcification in the distal carotid arteries bilaterally. Visualized paranasal sinuses are clear. No intraorbital abnormality is seen. On soft tissue window settings, there is generalized volume loss again noted. Choi-white differentiation pattern is intact. There is no evidence of intracranial hemorrhage. No infarct, mass, extra-axial fluid collection, or midline shift is seen. IMPRESSION: Vascular calcification and mild diffuse atrophy. No acute intracranial abnormality. Electronically Signed by William Ortega MD 06/21/2019 05:03 P
--- NOTE | 2019-06-21 14:35 | REP ---
CT STUDY OF THE CERVICAL SPINE WITHOUT CONTRAST: HISTORY: Trauma. TECHNIQUE: Helical scanning is acquired and overlapping 2 mm high resolution axial images were generated and reviewed at bone and soft tissue window settings. Coronal and sagittal multiplanar re-formations images are generated. CT FINDINGS: There is no evidence of cervical spine element fracture. No skull base fracture is seen. Cervical vertebral body heights are preserved. There are fairly advanced degenerative disc and osteoarthritic facet changes. The degenerative disc changes are most pronounced at C5-6 and C6-7. There are large anterior osteophytes associated with these two levels. There is fairly advanced osteoarthritic facet disease in the mid cervical spine bilaterally. There are erosive changes associated with the left C3-4 facet. There is straightening of the normal cervical lordosis. There is no evidence of intraspinal or paraspinal hematoma. No extra vertebral abnormality is seen. IMPRESSION: Advanced degenerative spondylosis changes. Straightening. Otherwise negative CT study of the cervical spine without contrast. No fracture seen. Electronically Signed by William Ortega MD 06/21/2019 05:04 P
[2019-06-21] MEDS ORDERED: GLUCAGON FOR INJ 1 MG VIAL (J1610) SC PRN (14:45)
[2019-06-21] MEDS ORDERED: DEXTROSE 50% 50 ML SYRINGE IV PRN (14:45)
[2019-06-21] MEDS ORDERED: GLUCOSE 4 GM CHEW TABLET PO PRN (14:45)
[2019-06-21] MEDS ORDERED: NS 1,000 ML IV SCH (14:45)
[2019-06-21] MEDS ORDERED: SUCR1TA PO (15:42)
[2019-06-21] MEDS ORDERED: OMEP-218 PO (15:42)
[2019-06-21] MEDS ORDERED: VITATAB26 PO (15:42)
[2019-06-21] MEDS ORDERED: ASPI81TA85 PO (15:42)
[2019-06-21 16:15] VITALS: BP 119/64
[2019-06-21] MEDS: HumaLOG INSULIN (NovoLOG) PER UNIT SC SCH ×2 (16:46→20:10)
[2019-06-21 18:18] LABS: THYROXINE (T4) 3.3 UG/DL (4.5-12.0)
[2019-06-21] MEDS: SUCRALFATE 1 GM TAB PO SCH ×2 (18:40→20:58)
[2019-06-21 20:00] VITALS: BP 134/63
[2019-06-21 20:37] LABS: CALCIUM LEVEL 10.4 MG/DL (8.8-10.2); CREATININE FOR GFR 4.4 MG/DL (0.55-1.30); GLOMERULAR FILTRATION RATE 10.2 (>32)
[2019-06-21] MEDS: FLUTICASONE PROP 0.05% NASAL SPRAY 16 GM (FLONASE) NARES SCH (20:58)
[2019-06-21] MEDS ORDERED: SUCRALFATE 1 GM TAB PO SCH (21:00)
[2019-06-22] VITALS: BP 117/65
[2019-06-22 00:27] LABS: CREATININE FOR GFR 4.38 MG/DL (0.55-1.30)
[2019-06-22 00:28] LABS: CALCIUM LEVEL 9.8 MG/DL (8.8-10.2); GLOMERULAR FILTRATION RATE 10.3 (>32); POTASSIUM SERUM 4.7 MEQ/L (3.5-5.1)
[2019-06-22] MEDS: NS 1,000 ML IV SCH ×3 (03:30→20:29)
[2019-06-22 04:00] VITALS: BP 139/79
[2019-06-22] MEDS: LEVOTHYROXINE 37.5MCG PER 1/2TAB (0.0375MG) PO SCH (05:41)
[2019-06-22 05:53] LABS: BASO % 0.5 % (0.0-1.0); EOS # 0.1 10^3/uL (0.0-0.5); EOS % 1.3 % (0.0-3.0); HEMOGLOBIN 12.5 g/dl (12.0-15.5); LYMPH # 1.2 10^3/uL (1.5-5.0); LYMPH % 19.1 % (24.0-44.0); MEAN CORPUSCULAR HEMOGLOBIN 30.6 pg (27.0-33.0); MEAN CORPUSCULAR HGB CONC 32.1 g/dl (32.0-36.5); MEAN CORPUSCULAR VOLUME 95.6 fl (80.0-96.0); MONO # 0.7 10^3/uL (0.0-0.8); MONO % 11.8 % (0.0-5.0); NEUTROPHILS # 4.1 10^3/uL (1.5-8.5); NEUTROPHILS % 66.8 % (36.0-66.0); PLATELET COUNT, AUTOMATED 213 10^3/uL (150-450); RED BLOOD COUNT 4.08 10^6/uL (4.00-5.40); WHITE BLOOD COUNT 6.1 10^3/uL (4.0-10.0)
[2019-06-22 06:11] LABS: CALCIUM LEVEL 9.7 MG/DL (8.8-10.2); CREATININE FOR GFR 4.05 MG/DL (0.55-1.30); GLOMERULAR FILTRATION RATE 11.3 (>32); POTASSIUM SERUM 4.2 MEQ/L (3.5-5.1)
--- NOTE | 2019-06-22 06:46 | REP ---
Urinary tract sonography: History: Acute renal failure. Rule out obstruction. Comparison CT study October 29, 2018. Comparison sonography April 09, 2019. Sonographic findings: Scanning at the level of the urinary bladder demonstrates that it is empty at the time of scanning. Renal cortical echogenicity pattern is increased consistent with chronic medical renal disease bilaterally. There is no evidence of hydronephrosis on either side. Right renal dimensions are 10.5 x 5.1 x 5.3 cm. The left kidney measures 10.3 x 6.5 x 5.8 cm. There are multiple cysts noted bilaterally. The largest three on the right measure 1.5, 2.0, and 1.4 cm in greatest diameter in the upper, mid and lower pole respectively. The largest three cysts on the left kidney measure 2.4, 4.8, and 2.6 cm in greatest diameter in the upper, mid and lower pole respectively. Impression: Multiple bilateral renal cortical cysts. Increased renal cortical echogenicity pattern consistent with chronic medical renal disease. No hydronephrosis noted. Electronically Signed by William Ortega MD 06/22/2019 08:26 A
[2019-06-22 08:00] VITALS: BP 154/77
[2019-06-22] MEDS ORDERED: ASPIRIN 325 MG TAB PO SCH (09:00)
[2019-06-22] MEDS: SUCRALFATE 1 GM TAB PO SCH ×4 (09:20→20:29)
[2019-06-22] MEDS: OMEPRAZOLE 20 MG CAP PO SCH (09:20)
[2019-06-22] MEDS: FERROUS SULFATE 325MG TAB PO SCH (09:20)
[2019-06-22] MEDS: VITAMIN D 1,000 INTERNATIONAL UNITS TABLET PO SCH (09:20)
[2019-06-22] MEDS: LORATADINE 10 MG TAB PO SCH (09:21)
[2019-06-22] MEDS ORDERED: ASPIRIN 81 MG ENTERIC TAB PO SCH (09:21)
[2019-06-22] MEDS: METOPROLOL TARTRATE 100 MG TAB PO SCH (09:22)
[2019-06-22] MEDS: HumaLOG INSULIN (NovoLOG) PER UNIT SC SCH ×4 (09:22→20:30)
[2019-06-22] MEDS: FLUTICASONE PROP 0.05% NASAL SPRAY 16 GM (FLONASE) NARES SCH ×2 (09:22→20:29)
[2019-06-22 12:00] VITALS: BP 130/64
--- NOTE | 2019-06-22 12:05 | ECGEPIP ---
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
[2019-06-22 12:27] LABS: CALCIUM LEVEL 8.9 MG/DL (8.8-10.2); CREATININE FOR GFR 3.65 MG/DL (0.55-1.30); GLOMERULAR FILTRATION RATE 12.7 (>32); POTASSIUM SERUM 3.8 MEQ/L (3.5-5.1)
--- NOTE | 2019-06-22 12:57 | HPE ---
DATE OF ADMISSION: 06/21/2019 PRIMARY CARE PHYSICIAN: Dr. Benjamin BOOTMAKER: Dr. Giorgi Masterson CHIEF COMPLAINT: Weakness. HISTORY OF THE PRESENT ILLNESS: 83-year-old female has been well since being discharged from rehabilitation 04/28/2019, presents with 1-1/2 week history of generalized weakness. Patient went shopping with her daughter about 2 weeks ago and appeared to be increasingly tired, requiring naps during the day, sleeping about 12-14 hours daily. According to the patient, she has been losing weight, a good 20 pounds, since she was released from the hospital with diuresis for congestive heart failure. For the past week, the weakness has worsened to the point where she is unable to eat or drink. The daughter lives with her in the trailer but works at night, leaves her food but returns to find it uneaten. Patient usually has breakfast with her and drinks two cups of coffee, usually one soda during lunch time, and another full glass of water at night but she has noticed that mother was not doing this. She was seen at Dr. Benjamin's office who did a blood test yesterday, felt that she was dehydrated and told to cut back on her Lasix. Despite not eating and drinking and losing weight of about 20-25 pounds since hospital discharge, the patient continued to take her Lasix as well as spironolactone. She was coming out of the bathroom today when her walker got caught on the runner, and she slid down to the floor and was laying on her side. She had no head trauma or loss of consciousness. When paramedics came, she complained of feeling a little dizzy when she tried to get up. She admits to feeling very tired and not herself and sleeping 12-14 hours daily. Last week, her great-grandson was visiting her, who had flu-like symptoms. Patient then developed diarrhea for 2 days, about four times a day diarrhea which subsided on its own. She never sought medical attention at that time and continued to take her medications. She otherwise denies any shortness of breath, chest pain, pressure, tightness, palpitations. She did complain of dizziness, a little lightheadedness when emergency medical services (EMS) arrived at the house. She denied any bright red blood per rectum, melena, black tarry stools. She admits to having 2 days of diarrhea a week ago, which subsided on its own. She denies any nausea or vomiting but felt like she could not take any food in and was dry heaving and felt very gassy and gagging. No fever or chills. No cough or shortness of breath. No dysuria, urgency, frequency. She has noted very dark orange urine lately. In the emergency room (ER), she was found to have a creatinine of 4.42 with baseline creatinine of 1.2, currently GFR is 10.2 at stage V, previously at stage III chronic kidney disease, hyperkalemia with potassium of 5.6. Hospitalist was asked to admit for acute on chronic renal failure. PAST MEDICAL HISTORY: Paroxysmal atrial fibrillation, not on anticoagulation due to history of gastrointestinal (GI) bleed and recurrent falls. Right-sided heart failure with severe pulmonary hypertension. Severe tricuspid regurgitation. Reflux disease. Peptic ulcer disease. Hyperlipidemia. Chronic kidney disease, stage III, baseline creatinine of 1.2. Rheumatoid arthritis. GI bleed with hypotensive shock 10/23/2018. High grade second-degree AV block with pacer. Hypothyroidism. Type 2 diabetes. Moderate mitral regurgitation. Status post Medtronic dual-chamber pacer. Sick sinus syndrome. Tachybrady syndrome. Left hip fracture. PAST SURGICAL HISTORY: Prior right breast biopsy. Appendectomy. Cholecystectomy. Knee replacement. Total abdominal hysterectomy. Left femoral fracture, open reduction internal fixation (ORIF). SOCIAL HISTORY: Lives with her daughter in a trailer. Prior smoker. No alcohol. No illicit drug use. FAMILY HISTORY: Father at the age of 64 with coronary artery disease, myocardial infarction (MT). REVIEW OF SYSTEMS: Per history of the present illness. 12-point system otherwise negative. HOME MEDICATIONS: - allopurinol 300 mg nightly - aspirin 81 mg daily - calcium and vitamin D one capsule twice a day - vitamin D3 2000 units daily - ferrous sulfate 325 mg twice a day - fluticasone one spray daily as needed - Lasix 80 mg daily - gemfibrozil 600 mg twice a day - glimepiride 2 mg daily - Synthroid 37.5 mcg daily - loratadine 10 mg daily - metoprolol 100 mg daily - omeprazole 40 mg daily - Zofran 4 mg every 6 hours as needed - spironolactone 25 mg daily - Carafate 1 gram before food and nightly - potassium chloride 40 mEq daily REVIEW OF SYSTEMS: Per history of the present illness. 12-point system otherwise negative. PHYSICAL EXAMINATION: Temperature 96.1, pulse 78, respiratory rate 18, blood pressure 131/57, 97% on room air. Generally, awake, alert, oriented times three, answering questions appropriately, no icterus, no jaundice, no pallor. Dry mucous membranes. No jugular venous distention (JVD), thyromegaly, or cervical lymphadenopathy. Lungs are clear to auscultation. No wheezing, rales, or rhonchi. Heart: S1, S2, systolic ejection murmur at the apex. Abdomen is soft, nontender, nondistended. Extremities: Have no pitting edema. LABORATORY DATA: White count 7.3, hemoglobin 14, hematocrit 43, platelet count 250. Sodium 132, potassium 5.6, chloride 96, bicarbonate 21, BUN 146, creatinine 4.42, glucose 84, calcium of 10.6, total bilirubin 1, direct bilirubin 0.7, AST 23, ALT 8, alkaline phosphatase 208, total CK 165, MB fraction 4, troponin 0.04, TSH 8.440, total protein 8.9. Urinalysis: Cloudy urine, 1+ protein, 2+ blood, 3+ leukocyte esterase, 175 WBCs, 14 RBCs, 1+ bacteria. IMAGING STUDIES: CT of the head: No acute intracranial abnormality. Chest x-ray: Pacer, no acute disease. CT of cervical spine: No fracture seen. ASSESSMENT AND PLAN: 83-year-old female who presented after a 1-1/2 week history of malaise, 2 days of diarrhea, continued use of her spironolactone and Lasix, with weight loss 20 pounds, decreased oral intake, with acute kidney injury, status post fall at home with abnormal urinalysis. Patient will be admitted as an inpatient for two midnights for the following issues: 1. Acute on chronic renal failure, stage V; baseline creatinine is 1.2, stage III. Patient has had 2 days of diarrhea about a week ago and continues to use her Lasix, spironolactone with decreased oral intake. Patient's Lasix and spironolactone have been held. Patient is currently receiving intravenous fluids. Nephrology has been consulted for help in management in light of history of congestive heart failure to prevent fluid overload. Strict intake and output, daily weights and continue with female catheter for urine measurements. 2. Abnormal urinalysis. Denies any dysuria, urgency, frequency. Will await urine culture and wait for fevers or increased white count prior to starting antibiotics. Patient denies any complaints of flank pain, fever, chills, dysuria, urgency or frequency. 3. Acute hyperkalemia. Most likely secondary to patient's supplementation with spironolactone and potassium supplements. These have been discontinued. The patient has no peak T waves on the EKG but will be given calcium gluconate, as well as withholding spironolactone, as well as potassium supplements. Repeat potassium level later this evening. 4. Congestive heart failure. Patient is currently euvolemic. She has no JVD on exam. No complaints of shortness of breath, paroxysmal nocturnal dyspnea or orthopnea. Lungs are clear. Chest x-ray has no acute infiltrate or any pleural effusion or pulmonary edema. 5. History of tachybrady syndrome and high-grade AV block requiring pacemaker placement. Patient had no prodromal symptoms or palpitations, lightheadedness prior to fall. She states that she used her walker and attempted to leave the bathroom, which may have caught on to the metal strip on the bottom. Appears to be mechanical fall. If patient develops any arrhythmias on telemetry, pacer will be checked and cardiology will be consulted. 6. History of left distal femoral fracture, status post mechanical fall. Patient was discharged from rehab, not requiring deep vein thrombosis (DVT) prophylaxis due to history of GI bleed and currently stable. 7. Vitamin D deficiency. Continue on calcium and vitamin D. 8. History of GI bleed, on iron, given by nephrology. 9. Type 2 diabetes. Hypoglycemic protocol, insulin sliding scale. Consistent carbohydrate diet. Patient's glucose on arrival was within normal limits of 84. MTDD
[2019-06-22] MEDS: LevoFLOXacin 250 MG TABLET PO SCH (14:07)
[2019-06-22] MEDS: ASPIRIN 81 MG ENTERIC TAB PO SCH (14:07)
[2019-06-22 16:00] VITALS: BP 117/61
[2019-06-22 20:00] VITALS: BP 135/68
[2019-06-23 00:34] VITALS: BP 108/56
--- NOTE | 2019-06-23 05:49 | IPN ---
DATE OF VISIT: 06/22/2019 HISTORY: The patient continues to have some dysuria and urgency, started on renal dose Levaquin. Urine output overnight was 400, current weight is 78 kg. No shortness of breath. The patient is admitted for acute on chronic renal failure, received one liter of fluids yesterday with minimal output. No chest pain, pressure or tightness. Vital signs: Temperature 96.5, pulse 66, respirations 16, blood pressure 154/77, 97% on room air. General: The patient is awake, alert and oriented to herself, answers questions appropriately. No respiratory distress or cyanosis. Lungs: Diminished with fine crackles at the bases. Heart: S1. S2, sinus rhythm. Abdomen: Obese, soft, nontender, nondistended. Positive bowel sounds. Extremities: Positive edema. 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 Nephrology was consulted for health and management. IMPRESSION: 1. Acute on chronic renal failure. This is mostly likely due to decreased oral intake. Continue juice for diuretics. She was found to be hyperkalemic with acute on chronic renal failure, creatinine of 4.42, GFR 10. The patient was given Kayexalate and calcium gluconate with subsequent improvement to 3.8. The patient is currently on normal saline at 70 mL an hour. 2. Urinary tract infection (UTI) present on admission. Currently renally dosed Levaquin. 3. Hypothyroidism. On Synthroid. 4. Type 2 diabetes. On sliding scale, consistent carbohydrate diet. 5. Hypertension on metoprolol 100 mg daily with blood pressure 117/155 systolic and no complaints of headache, changes in vision, shortness of breath. 6. Allergic rhinitis on chronic Claritin. 7. Reflux on Prilosec. 8. Vitamin deficiency, on supplemental vitamins. MTDD
[2019-06-23 06:00] VITALS: BP 135/69
--- NOTE | 2019-06-23 06:30 | CR ---
DATE OF CONSULTATION: 06/22/2019 REASON FOR CONSULTATION: Acute renal failure. HISTORY OF PRESENT ILLNESS: Mrs. Doty is a 83-year-old female with known history of chronic kidney disease and baseline creatinine about 1.2-1.5 mg/dl, history of congestive heart failure, history of atrial fibrillation on chronic anticoagulation, history of prior gastrointestinal (GI) bleed, history of pulmonary hypertension and hyperlipidemia in addition to diabetes and hypothyroidism. She was recently admitted to [facility] with a hip fracture in April when she had her surgery and then rehab. Since discharge she was doing well; however not feeling good for about a week. She came to emergency room yesterday and was found to have acute renal failure due to which she was admitted. Nephrology consultation was requested and the patient is seen this morning. PAST MEDICAL HISTORY: Significant for: 1. Longstanding diabetes. 2. Congestive heart failure. 3. Atrial fibrillation (A-fib). 4. History of prior GI bleed. 5. Recent history of left hip fracture. 6. Pulmonary hypertension. 7. Hyperlipidemia. 8. History of peptic ulcer disease. 9. Rheumatoid arthritis. 10. Hypothyroidism. 11. History of pacemaker placement due to complete arteriovenous (AV) block. 12. Chronic kidney disease. PAST SURGICAL HISTORY: Past surgical history is significant for: 1. Pacemaker placement. 2. Appendectomy. 3. Cholecystectomy. 4. Total hysterectomy. 5. Right breast biopsy. 6. Recent left femur fracture requiring intramedullary nail. MEDICATIONS: Current medications in the hospital include: - intravenous (IV) fluid normal saline at 150 mL per hour - aspirin 81 mg daily - ferrous sulfate 325 mg daily - Flonase nasal spray twice a day - insulin per sliding scale - levothyroxine 37.5 mg daily - loratadine 10 mg daily - metoprolol 100 mg daily - omeprazole 40 mg daily - Carafate 1 gram before meals and at bedtime - vitamin D 2000 units daily ALLERGIES: She has allergy to CODEINE and LATEX. PERSONAL AND SOCIAL HISTORY: The patient denies any alcohol, drug or tobacco use. FAMILY HISTORY: Family history is noncontributory for this admission. REVIEW OF SYSTEMS: The patient has been feeling weak and tired for about a week. She denies any fever or chills. Ears, nose and throat are unremarkable. Cardiovascular system is significant for history of atrial fibrillation. She denies any chest pain or dyspnea at present. Respiratory system is negative for cough or hemoptysis. Gastrointestinal (GI) system is negative for abdominal pain, diarrhea or vomiting. Genitourinary ()system is significant for chronic kidney disease and prior urinary tract infections. She denies any dysuria or hematuria at present. Musculoskeletal system is significant for chronic degenerative arthritis and recent history of left hip fracture requiring surgery. She denies any leg edema. Neurological system is negative for seizures or stroke. Hematological system is significant for anemia and chronic anticoagulation. Psychosocial system is negative for depression, anxiety. Skin is negative for rash or ulcers. PHYSICAL EXAMINATION: Vital Signs: Temperature 96.5 degrees Fahrenheit, heart rate 66 per minute and respiratory rate 16 per minute. Blood pressure 154/77 mmHg and oxygen saturation 97% on room air. HEENT/NECK: Head is atraumatic. Neck is supple and jugular venous distention (JVD) about 6 cm above sternal angle. There is no oral thrush or ulcers. HEART: Heart: Sounds are regular. LUNGS: Clear to auscultation. ABDOMEN: Soft with right upper quadrant tenderness and bowel sounds are normal. There is no palpable organomegaly. EXTREMITIES: No cyanosis or clubbing. NEUROLOGICALLY: She is awake, alert and at her baseline mentation. LABORATORY DATA: Her admission labs showed a WBC count 7.3, hemoglobin 14 and hematocrit 43. Today her hemoglobin is 12.5 and hematocrit 39.0. Her potassium was 5.6 on admission, sodium 132. CO2 was 21, BUN 146 and creatinine 4.42. Today her sodium is 134, potassium 4.2, CO2 21, BUN 143 and creatinine 4.05. Glucose 202 and calcium 9.7. A urinalysis showed 3+ leukocyte esterase, 175 wbc's, and 14 rbc's. INR was 1.24. She had a renal ultrasound done yesterday which did not show any hydronephrosis. She does have multiple bilateral renal cysts with right kidney 10.5 cm, left kidney 10.3 cm. PROBLEMS: 1. Acute renal failure superimposed on chronic kidney disease. Her baseline kidney function is at stage III; however, now her kidney function is much worse. She was felt to be dehydrated and has been receiving intravenous (IV) fluid normal saline at 150 mL per hour. There is only slight improvement in her kidney function with IV fluids since yesterday. Her volume status seems reasonably well corrected with mild elevation in her neck veins. I feel that the patient is at risk for congestive heart failure in case of continued IV fluid. I am going to cut down her IV fluid rate to 70 mL per hour. Renal ultrasound already ruled out any hydronephrosis. We will continue to monitor her kidney function. There is no emergent need for dialysis at present. 2. Hyponatremia. Slight improvement since yesterday. This most likely is related to acute kidney injury. She is currently not on diuretics and has been receiving IV normal saline. Electrolytes will be checked again tomorrow morning. 3. Hyperkalemia. Most likely that was related to acute renal failure and has already improved with treatment. No urgent intervention is needed at present. 4. Urinary tract infection (UTI). She does have a history of UTI previously and probably that is the reason why she was not feeling good. Her urinalysis did show large amount of wbc's and 3+ leukocyte esterase. I would recommend treating her with antibiotic. We will give her oral levofloxacin 250 mg every 48 hours. As her kidney function improves then we can adjust the dose. Thank you for involving me in the care of Mrs. Ortiz. I will follow her along with you.
[2019-06-23] MEDS: LEVOTHYROXINE 37.5MCG PER 1/2TAB (0.0375MG) PO SCH (06:36)
[2019-06-23 07:04] LABS: BASO % 0.6 % (0.0-1.0); EOS # 0.3 10^3/uL (0.0-0.5); EOS % 4.6 % (0.0-3.0); HEMATOCRIT 36.4 % (36.0-47.0); HEMOGLOBIN 11.8 g/dl (12.0-15.5); LYMPH # 1.6 10^3/uL (1.5-5.0); LYMPH % 29.5 % (24.0-44.0); MEAN CORPUSCULAR HEMOGLOBIN 31.6 pg (27.0-33.0); MEAN CORPUSCULAR HGB CONC 32.4 g/dl (32.0-36.5); MEAN CORPUSCULAR VOLUME 97.3 fl (80.0-96.0); MONO # 0.6 10^3/uL (0.0-0.8); MONO % 11.7 % (0.0-5.0); NEUTROPHILS # 2.9 10^3/uL (1.5-8.5); NEUTROPHILS % 53.2 % (36.0-66.0); PLATELET COUNT, AUTOMATED 180 10^3/uL (150-450); RED BLOOD COUNT 3.74 10^6/uL (4.00-5.40); WHITE BLOOD COUNT 5.5 10^3/uL (4.0-10.0)
[2019-06-23] MEDS: HumaLOG INSULIN (NovoLOG) PER UNIT SC SCH ×4 (07:30→21:00)
[2019-06-23] MEDS: METOPROLOL TARTRATE 100 MG TAB PO SCH (09:43)
[2019-06-23] MEDS: ASPIRIN 81 MG ENTERIC TAB PO SCH (09:43)
[2019-06-23] MEDS: FERROUS SULFATE 325MG TAB PO SCH (09:43)
[2019-06-23] MEDS: VITAMIN D 1,000 INTERNATIONAL UNITS TABLET PO SCH (09:43)
[2019-06-23] MEDS: OMEPRAZOLE 20 MG CAP PO SCH (09:43)
[2019-06-23] MEDS: SUCRALFATE 1 GM TAB PO SCH ×4 (09:44→21:04)
[2019-06-23] MEDS: FLUTICASONE PROP 0.05% NASAL SPRAY 16 GM (FLONASE) NARES SCH ×2 (09:45→21:04)
[2019-06-23] MEDS: LORATADINE 10 MG TAB PO SCH (09:45)
[2019-06-23] MEDS: NS 1,000 ML IV SCH (13:09)
--- NOTE | 2019-06-23 15:34 | IPN ---
DATE: 06/23/2019 Patient is seen and examined at the bedside. Chart has been reviewed. Patient denies any fever or chills overnight. Denies any urgency or frequency. Complains of occasional dysuria. Currently being treated for Klebsiella urinary tract infection on renally doses Levaquin 250 nightly. Despite IV fluid at 70 mL per hour, patient denies any shortness of breath, chest pain, pressure or tightness, lightheadedness or dizziness. Temperature 97.3, pulse 71, respiratory rate 18, blood pressure 135/69, 99% on room air. Generally, awake, alert, oriented. Able to speak in full sentences. She has no jugular venous distention (JVD. No thyromegaly. No cervical lymphadenopathy. Lungs are clear to auscultation. No wheezing, rales or rhonchi. Heart: S1, S2, sinus rhythm. Abdomen is soft. Normoactive bowel sounds in all four quadrants. Slight tenderness right upper quadrant. No hepatosplenomegaly. No abdominal bruits. Extremities: No cyanosis or clubbing. LABORATORY DATA: White count 5.5, hemoglobin 11, hematocrit 56, platelet count 180. Sodium 135, potassium 3.8, chloride 102, bicarbonate 21, BUN 128, creatinine 3.65 down from previous creatinine on admission of 4.42. Glucose 161. Microbiology: Urine culture Klebsiella pneumoniae, sensitive to Levaquin with resistant to Ampicillin and Ampicillin/Sulbactam. Renal ultrasound 06/21/2019 shows chronic medical renal disease. No hydronephrosis, multiple bilateral renal cortical cysts. ASSESSMENT/PLAN: This is an 83-year-old female with a history of chronic kidney disease stage III baseline creatinine 1.2, atrial fibrillation not anticoagulated due to history of gastrointestinal bleed, pulmonary hypertension, dyslipidemia, rheumatoid arthritis, peptic ulcer disease, diabetes, hypothyroidism, pacer due to complete arteriovenous block, congestive heart failure, who presents with weakness. Found to have acute on chronic renal failure due to decreased oral intake. Nephrology consulted for fluid management. IMPRESSION: 1. Acute on chronic renal failure stage IV most likely due to decreased oral intake. We have withheld patient's diuretics. She was felt to be hyperkalemic and did receive Kayexalate. She is currently managed with IV fluids by nephrology, Dr. Masterson with improvement. On normal saline 70 mL/hour. 2. Urinary tract infection: Klebsiella pneumoniae present on admission. Currently on renally dosed Levaquin. 3. Hypothyroidism on Synthroid. 4. Type 2 diabetes: On consistent carbohydrate diet. 5. Hypertension: On metoprolol with good control. 6. Allergic rhinitis: On chronic Claritin. 7. Reflux: On Prilosec. 8. Vitamin D deficiency: On supplemental vitamin. 9. Rheumatoid arthritis complicating her care. JOSE
[2019-06-23 22:00] VITALS: BP 123/63
[2019-06-24] MEDS: NS 1,000 ML IV SCH (04:44)
[2019-06-24 06:00] VITALS: BP 122/63
[2019-06-24] MEDS: LEVOTHYROXINE 37.5MCG PER 1/2TAB (0.0375MG) PO SCH (06:11)
[2019-06-24 06:19] LABS: BASO % 0.7 % (0.0-1.0); EOS # 0.3 10^3/uL (0.0-0.5); EOS % 5.9 % (0.0-3.0); HEMATOCRIT 33.2 % (36.0-47.0); LYMPH # 1.4 10^3/uL (1.5-5.0); LYMPH % 31.2 % (24.0-44.0); MEAN CORPUSCULAR HEMOGLOBIN 32.1 pg (27.0-33.0); MEAN CORPUSCULAR HGB CONC 33.1 g/dl (32.0-36.5); MEAN CORPUSCULAR VOLUME 96.8 fl (80.0-96.0); MONO # 0.5 10^3/uL (0.0-0.8); MONO % 11.4 % (0.0-5.0); NEUTROPHILS # 2.3 10^3/uL (1.5-8.5); NEUTROPHILS % 50.4 % (36.0-66.0); PLATELET COUNT, AUTOMATED 174 10^3/uL (150-450); RED BLOOD COUNT 3.43 10^6/uL (4.00-5.40); WHITE BLOOD COUNT 4.6 10^3/uL (4.0-10.0)
[2019-06-24] MEDS: HumaLOG INSULIN (NovoLOG) PER UNIT SC SCH ×4 (07:30→20:54)
[2019-06-24 08:08] LABS: ALBUMIN 3.2 GM/DL (3.2-5.2); CALCIUM LEVEL 8.8 MG/DL (8.8-10.2); CREATININE FOR GFR 1.95 MG/DL (0.55-1.30); GLOMERULAR FILTRATION RATE 26.2 (>32); PHOSPHORUS LEVEL 2.5 MG/DL (2.5-4.9); POTASSIUM SERUM 3.5 MEQ/L (3.5-5.1)
[2019-06-24] MEDS ORDERED: MIRALAX *UNIT DOSE* 17GM PACKET PO PRN (09:15)
[2019-06-24] MEDS: SUCRALFATE 1 GM TAB PO SCH ×4 (09:18→20:54)
[2019-06-24] MEDS: METOPROLOL TARTRATE 100 MG TAB PO SCH (09:18)
[2019-06-24] MEDS: OMEPRAZOLE 20 MG CAP PO SCH (09:18)
[2019-06-24] MEDS: VITAMIN D 1,000 INTERNATIONAL UNITS TABLET PO SCH (09:18)
[2019-06-24] MEDS: FERROUS SULFATE 325MG TAB PO SCH (09:18)
[2019-06-24] MEDS: ASPIRIN 81 MG ENTERIC TAB PO SCH (09:19)
[2019-06-24] MEDS: LORATADINE 10 MG TAB PO SCH (09:19)
[2019-06-24] MEDS: FLUTICASONE PROP 0.05% NASAL SPRAY 16 GM (FLONASE) NARES SCH ×2 (09:19→20:55)
[2019-06-24 10:00] VITALS: BP 128/64
[2019-06-24] MEDS: LevoFLOXacin 250 MG TABLET PO SCH (12:47)
[2019-06-24 14:00] VITALS: BP 127/64
--- NOTE | 2019-06-24 14:12 | IPN ---
DATE: 06/24/2019 SUBJECTIVE: Patient is an 83-year-old female with a history of chronic kidney disease with a baseline creatinine of about 1.2 to 1.5 mg/dL who came into the hospital on 06/22/2019 with a chief complaint of weakness. The patient was found to not be eating and drinking, as much and appeared to be dehydrated. The patient's acute renal failure superimposed on chronic kidney disease is most likely secondary to dehydration and it was of a prerenal origin. The patient was started on 150 mL/h of normal saline which was decreased to 70 when seen initially by Dr. Masterson. The patient had a renal ultrasound which did not show any hydronephrosis. At this time, in talking to the patient, she says she is feeling well and says that she has been eating and drinking much better over the last 24-36 hours. The patient does not complain of any nausea or vomiting, or any pain. PHYSICAL EXAMINATION: Vitals: Temperature 96.7 degrees Fahrenheit, pulse 70, respiratory rate 16, blood pressure 122/63, pulse oximetry 97% on room air. General: Patient is an alert and oriented female who was sitting in her bedside chair when we walked in. The patient did not appear to be any acute distress. HEENT: Normocephalic, atraumatic with anicteric sclera. The patient had moist mucous membranes. NECK: Supple with no evidence of jugular venous distention (JVD). Cardiovascular: Regular rate and rhythm with a normal S1 and normal S2. Respiratory: Faint bibasilar crackles heard with clear lung sounds in all her lung maria. Abdomen: Soft with no tenderness. Extremities: Did show no any edema. Neurologic: Patient is awake and alert. LABORATORIES: White blood cells 4.6, hemoglobin 11.0, hematocrit 33.2, platelet count 174. Sodium 142, potassium 3.5, chloride 110, carbon dioxide 22, BUN 81, creatinine 1.95, glucose 81, calcium 8.8, phosphorous 2.5. ASSESSMENT/PLAN: 1. Acute renal failure superimposed on chronic kidney disease. The patient is slowly approaching her baseline creatinine of 1.2 to 1.5 because the patient was showing signs of fluid overload with bibasilar crackles. IV fluids have been stopped. Patient encouraged to eat and drink normally and she should be able to maintain adequate fluid balance with oral intake alone. We will continue to monitor the patient at this time. 2. Hypernatremia. This has resolved with adequate fluid hydration and we will continue to monitor. 3. Hyperkalemia. This has resolved as well. We will continue to monitor. 4. Urinary tract infection. The patient did have a urinalysis which did show 3+ leukocyte esterase and 175 white blood cells per high power field. The patient is currently on oral levofloxacin 250 mg every 48 hours. DISPOSITION: We will continue to monitor the patient. As long as kidney functions continue to improve, as IV fluids have been shut off and the patient is able to maintain adequate by mouth intake, the patient may be able to be discharged in the coming days.
--- NOTE | 2019-06-24 18:42 | IPNPDOC ---
Text Note Date of Service The patient was seen on 06/24/19. NOTE Subjective: pain complains of excessive sleepiness. complains of feeling co nstipated and right upper quadrant pain. No nausea or vomiting or diarrhea. PHYSICAL EXAM: Vitals: As below General: awake, alert, oriented. Able to speak in full sentences. HEENT: normocephalic atraumatic, moist mucous membranes. NECK: She has no jugular venous distention No thyromegaly. No cervical lymphadenopathy. Lungs are clear to auscultation. No wheezing, rales or rhonchi. Heart: S1, S2, sinus rhythm. systolic murmur, no rub or gallop. Abdomen is soft. Normoactive bowel sounds in all four quadrants. Slight tenderness right upper quadrant. No hepatosplenomegaly. No abdominal bruits. Extremities: No cyanosis or clubbing. Labs: Reviewed. ASSESSMENT/PLAN: This is an 83-year-old female with a history of chronic kidney disease stage III baseline creatinine 1.2, atrial fibrillation not anticoagulated due to history of gastrointestinal bleed, pulmonary hypertension, dyslipidemia, rheumatoid arthritis, peptic ulcer disease, diabetes, hypothyroidism, pacer due to complete arteriovenous block, congestive heart failure, who presents with weakness. Found to have acute on chronic renal failure due to decreased oral intake. Nephrology consulted for fluid management. Acute on chronic renal failure due to decreased oral intake. Improving with IVF. IVF stopped today. have withheld patient's diuretics. Urinary tract infection: Klebsiella pneumoniae present on admission. Currently on renally dosed Levaquin. Hypothyroidism on Synthroid. Type 2 diabetes: On consistent carbohydrate diet. Hypertension: On metoprolol with good control. Allergic rhinitis: On chronic Claritin. Reflux: On Prilosec. Vitamin D deficiency: On supplemental vitamin. Rheumatoid arthritis complicating her care. VS,Fishbone, I+O VS, Fishbone, I+O Laboratory Tests 06/24/19 06:08 Vital Signs Date Time Temp Pulse Resp B/P (MAP) Pulse Ox O2 Delivery O2 Flow Rate FiO2 06/24/19 16:30 Room Air 06/24/19 14:00 97.4 66 20 127/64 (85) 99 I&O- Last 24 Hours up to 6 AM 06/24/19 06:00 Intake Total 500 ml Output Total 2350 ml Balance -1850 ml MATEUSZ CARTAGENA MD Jun 24, 2019 18:42
[2019-06-24 22:00] VITALS: BP 126/63
[2019-06-24] MEDS ORDERED: LIDOCAINE 5% (LIDODERM) PATCH TD ONE (23:00)
[2019-06-24] MEDS: ACETAMINOPHEN TAB 650MG DOSE (2X325MG) PO PRN (23:01)
[2019-06-25] MEDS: LEVOTHYROXINE 37.5MCG PER 1/2TAB (0.0375MG) PO SCH (05:59)
[2019-06-25 06:00] VITALS: BP 122/60
[2019-06-25 06:08] VITALS: BP 122/60
[2019-06-25 06:51] LABS: BASO % 0.6 % (0.0-1.0); EOS # 0.3 10^3/uL (0.0-0.5); EOS % 4.1 % (0.0-3.0); HEMATOCRIT 35.8 % (36.0-47.0); HEMOGLOBIN 11.4 g/dl (12.0-15.5); LYMPH # 1.4 10^3/uL (1.5-5.0); LYMPH % 22.5 % (24.0-44.0); MEAN CORPUSCULAR HEMOGLOBIN 31.1 pg (27.0-33.0); MEAN CORPUSCULAR HGB CONC 31.8 g/dl (32.0-36.5); MEAN CORPUSCULAR VOLUME 97.8 fl (80.0-96.0); MONO # 0.6 10^3/uL (0.0-0.8); MONO % 9.6 % (0.0-5.0); NEUTROPHILS # 3.9 10^3/uL (1.5-8.5); NEUTROPHILS % 62.9 % (36.0-66.0); PLATELET COUNT, AUTOMATED 190 10^3/uL (150-450); RED BLOOD COUNT 3.66 10^6/uL (4.00-5.40); WHITE BLOOD COUNT 6.2 10^3/uL (4.0-10.0)
[2019-06-25 07:20] LABS: CREATININE FOR GFR 1.88 MG/DL (0.55-1.30); GLOMERULAR FILTRATION RATE 27.3 (>32); POTASSIUM SERUM 3.3 MEQ/L (3.5-5.1)
[2019-06-25] MEDS: SUCRALFATE 1 GM TAB PO SCH ×4 (07:30→20:40)
[2019-06-25] MEDS: ACETAMINOPHEN TAB 650MG DOSE (2X325MG) PO PRN (08:48)
[2019-06-25] MEDS: HumaLOG INSULIN (NovoLOG) PER UNIT SC SCH ×4 (08:48→20:40)
[2019-06-25] MEDS ORDERED: POTASSIUM CHLORIDE 10 MEQ SR TABLET PO ONE (09:00)
[2019-06-25 09:43] VITALS: BP 133/58
[2019-06-25 10:04] VITALS: BP 133/58
[2019-06-25] MEDS: VITAMIN D 1,000 INTERNATIONAL UNITS TABLET PO SCH (10:32)
[2019-06-25] MEDS: OMEPRAZOLE 20 MG CAP PO SCH (10:32)
[2019-06-25] MEDS: LORATADINE 10 MG TAB PO SCH (10:33)
[2019-06-25] MEDS: ASPIRIN 81 MG ENTERIC TAB PO SCH (10:33)
[2019-06-25] MEDS: METOPROLOL TARTRATE 100 MG TAB PO SCH (10:34)
[2019-06-25] MEDS: FERROUS SULFATE 325MG TAB PO SCH (10:34)
[2019-06-25] MEDS: LIDOCAINE 5% (LIDODERM) PATCH TD SCH (10:35)
[2019-06-25] MEDS: FLUTICASONE PROP 0.05% NASAL SPRAY 16 GM (FLONASE) NARES SCH ×2 (10:35→20:40)
[2019-06-25] MEDS ORDERED: **NOTE PATIENT COMMENT** MISC XX ONE (11:00)
--- NOTE | 2019-06-25 12:05 | IPNPDOC ---
Text Note Date of Service The patient was seen on 06/25/19. NOTE Subjective: Complains of right shoulder pain and right knee pain. Says hurt them when she fell this time. Complains of feeling constipated and right upper quadrant pain. No nausea or vomiting or diarrhea. More awake and alert today. PHYSICAL EXAM: Vitals: As below General: awake, alert, oriented. laying down comfortably in bed in no acute distress. HEENT: normocephalic atraumatic, moist mucous membranes. NECK: She has no jugular venous distention No thyromegaly. No cervical lymphadenopathy. Lungs are clear to auscultation. No wheezing, rales or rhonchi. Heart: S1, S2, sinus rhythm. systolic murmur, no rub or gallop. Abdomen is soft. Normoactive bowel sounds in all four quadrants. Slight tenderness right upper quadrant. No hepatosplenomegaly. No abdominal bruits. Extremities: No cyanosis or clubbing. Labs: Reviewed. ASSESSMENT/PLAN: This is an 83-year-old female with a history of chronic kidney disease stage III baseline creatinine 1.2, atrial fibrillation not anticoagulated due to history of gastrointestinal bleed, pulmonary hypertension, dyslipidemia, rheumatoid arthritis, peptic ulcer disease, diabetes, hypothyroidism, pacer due to complete arteriovenous block, congestive heart failure, who presents with weakness. Found to have acute on chronic renal failure due to decreased oral intake. Nephrology consulted for fluid management. Acute on chronic renal failure due to decreased oral intake. Improved with IVF. have withheld patient's diuretics. Urinary tract infection: Klebsiella pneumoniae present on admission. Currently on renally dosed Levaquin. Hypothyroidism on Synthroid. Type 2 diabetes: On consistent carbohydrate diet. Hypertension: On metoprolol with good control. Allergic rhinitis: On chronic Claritin. Reflux: On Prilosec. Vitamin D deficiency: On supplemental vitamin. Rheumatoid arthritis complicating her care. Dispo in 1 to 2 days pending PT clearance. VS,Fishbone, I+O VS, Fishbone, I+O Laboratory Tests 06/25/19 06:33 06/25/19 06:34 Vital Signs Date Time Temp Pulse Resp B/P (MAP) Pulse Ox O2 Delivery O2 Flow Rate FiO2 06/25/19 10:04 97.7 71 20 133/58 (83) 99 Room Air I&O- Last 24 Hours up to 6 AM 06/25/19 06:00 Intake Total 3170 ml Output Total 600 ml Balance 2570 ml MATEUSZ CARTAGENA MD Jun 25, 2019 12:05
[2019-06-25 14:00] VITALS: BP 109/56
--- NOTE | 2019-06-25 19:04 | IPN ---
DATE: 06/25/2019 SUBJECTIVE: The patient is an 83-year-old female with a history of chronic kidney disease with a baseline creatinine of about 1.2 to 1.5 mg/dL. She came to the hospital on 06/22/2019 with a chief complaint of weakness. The patient says that she is feeling better today. The patient is complaining of back pain. The patient does state she has a history of arthritis and she does get episodes of back pain. However, she says that the back pain started last night and is causing her to be in some discomfort. Other than that, the patient says that she had a bowel movement this morning and does feel slightly better. PHYSICAL EXAMINATION: VITAL SIGNS: Temperature 97.7, pulse 71, respiratory rate 20, blood pressure 133/58, pulse oximetry 99% on room air. GENERAL: The patient is an alert and oriented female who is laying in bed when we walked in. The patient did not appear to be in any acute distress. HEENT: Normocephalic, atraumatic with anicteric sclerae. The patient did have moist mucous membranes. NECK: Supple with jugular venous distention of about 5-6 cm. CARDIOVASCULAR: Regular rate and rhythm with a normal S1 and a normal S2. RESPIRATORY: Clear to auscultation bilaterally. ABDOMEN: Soft with some mild to moderate tenderness in the right upper quadrant. EXTREMITIES: No evidence of pretibial edema. LABORATORY DATA: White blood cells 6.2, hemoglobin 11.4, hematocrit 35.8, platelets 190. Sodium 141, potassium 3.3, chloride 109, carbon dioxide 24, BUN 68, creatinine 1.88, glucose 109, calcium 9.0. ASSESSMENT AND PLAN: 1. Acute renal failure superimposed on chronic kidney disease. The patient's creatinine has improved today to 1.88 from 1.95 yesterday. The patient has been encouraged to eat and drink normally and should be able to maintain adequate fluid balance with oral intake alone. IV fluids were stopped yesterday. 2. Hypernatremia. This has resolved with adequate fluid hydration and we will continue to monitor. 3. Hypokalemia. The patient received 40 mEq of potassium orally this morning to replete her potassium. 4. Urinary tract infection. The patient is currently on oral levofloxacin 250 mg every 48 hours. 5. Right upper quadrant abdominal pain. The patient was complaining of right upper quadrant abdominal pain. The patient does have a cholecystectomy history. We will discuss this with the patient's primary hospitalist if further investigation needs to be pursued. DISPOSITION: We will continue to monitor the patient. The patient's kidney function continues to improve closer to her baseline. We will continue the current monitoring.
[2019-06-25 19:57] VITALS: BP 111/56
[2019-06-25] MEDS ORDERED: **NOTE PATIENT COMMENT** MISC XX SCH (21:00)
[2019-06-26] MEDS: LEVOTHYROXINE 37.5MCG PER 1/2TAB (0.0375MG) PO SCH (05:16)
[2019-06-26 06:00] VITALS: BP 126/61
[2019-06-26] MEDS ORDERED: LevoFLOXacin 250 MG TABLET PO SCH (06:00)
[2019-06-26 06:54] LABS: BASO % 0.6 % (0.0-1.0); EOS # 0.2 10^3/uL (0.0-0.5); EOS % 4.6 % (0.0-3.0); HEMATOCRIT 31.4 % (36.0-47.0); HEMOGLOBIN 9.7 g/dl (12.0-15.5); LYMPH # 1.2 10^3/uL (1.5-5.0); LYMPH % 24.9 % (24.0-44.0); MEAN CORPUSCULAR HEMOGLOBIN 30.8 pg (27.0-33.0); MEAN CORPUSCULAR HGB CONC 30.9 g/dl (32.0-36.5); MEAN CORPUSCULAR VOLUME 99.7 fl (80.0-96.0); MONO # 0.7 10^3/uL (0.0-0.8); MONO % 13.9 % (0.0-5.0); NEUTROPHILS # 2.8 10^3/uL (1.5-8.5); NEUTROPHILS % 55.2 % (36.0-66.0); PLATELET COUNT, AUTOMATED 170 10^3/uL (150-450); RED BLOOD COUNT 3.15 10^6/uL (4.00-5.40)
[2019-06-26] MEDS: LIDOCAINE 5% (LIDODERM) PATCH TD SCH (08:42)
[2019-06-26 08:43] VITALS: BP 126/61
[2019-06-26] MEDS: ASPIRIN 81 MG ENTERIC TAB PO SCH (08:43)
[2019-06-26] MEDS: LORATADINE 10 MG TAB PO SCH (08:43)
[2019-06-26] MEDS: FERROUS SULFATE 325MG TAB PO SCH (08:43)
[2019-06-26] MEDS: METOPROLOL TARTRATE 100 MG TAB PO SCH (08:43)
[2019-06-26] MEDS: HumaLOG INSULIN (NovoLOG) PER UNIT SC SCH ×2 (08:43→13:00)
[2019-06-26] MEDS: VITAMIN D 1,000 INTERNATIONAL UNITS TABLET PO SCH (08:43)
[2019-06-26] MEDS: SUCRALFATE 1 GM TAB PO SCH ×2 (08:43→12:09)
[2019-06-26] MEDS: OMEPRAZOLE 20 MG CAP PO SCH (08:43)
[2019-06-26 08:50] LABS: CALCIUM LEVEL 8.5 MG/DL (8.8-10.2); CREATININE FOR GFR 1.59 MG/DL (0.55-1.30); GLOMERULAR FILTRATION RATE 33.2 (>32); POTASSIUM SERUM 3.8 MEQ/L (3.5-5.1)
[2019-06-26] MEDS: FLUTICASONE PROP 0.05% NASAL SPRAY 16 GM (FLONASE) NARES SCH (08:54)
[2019-06-26] MEDS ORDERED: FURO40TA2 PO (10:47)
[2019-06-26] MEDS ORDERED: LEVO250T12 PO (10:49)
[2019-06-26] MEDS ORDERED: LevoFLOXacin 250 MG TABLET PO ONE (11:00)
--- NOTE | 2019-06-26 15:07 | DS.PDOC ---
Discharge Summary General Date of Admission Jun 21, 2019 at 14:26 Date of Discharge 06/26/19 Discharge Summary PROCEDURES PERFORMED DURING STAY: [None]. DISCHARGE DIAGNOSES: TYLER on CKD due to poor oral intake. 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 HISTORY OF PRESENT ILLNESS: See history and physical HOSPITAL COURSE: This is an 83-year-old female with a history of chronic kidney disease stage III, atrial fibrillation not anticoagulated due to history of gastrointestinal bleed, pulmonary hypertension, dyslipidemia, rheumatoid arthritis, peptic ulcer disease, diabetes, hypothyroidism, pacer due to complete arteriovenous block, congestive heart failure, who presents with weakness. Found to have acute on chronic renal failure due to decreased oral intake and an urinary tract infection. Patient's renal functions improved after hydration and holding the diuretics. She also had electrolyte abnormalities which improved with improvement of renal function. Acute on chronic renal failure due to decreased oral intake. Improved with IVF. will restart lasix at 40, will stop spironolactone. will stop potassium Urinary tract infection: Klebsiella pneumoniae present on admission. on Levaquin. Hypothyroidism on Synthroid. Type 2 diabetes: On consistent carbohydrate diet. continue glimiperide. Hypertension: On metoprolol with good control. Allergic rhinitis: On chronic Claritin. Reflux: On Prilosec. Hyperlipidemia continue Gemfibrozil Gout: continue allopurinol Vitamin D deficiency: On supplemental vitamin. Rheumatoid arthritis complicating her care. DISCHARGE MEDICATIONS: Please see below. ALLERGIES: Please see below. PHYSICAL EXAMINATION ON DISCHARGE: VITAL SIGNS: Please see below. GENERAL: awake, alert, oriented. laying down comfortably in bed in no acute distress. HEENT: normocephalic atraumatic, moist mucous membranes. NECK: She has no jugular venous distention No thyromegaly. No cervical lymphadenopathy. Lungs are clear to auscultation. No wheezing, rales or rhonchi. Heart: S1, S2, sinus rhythm. systolic murmur, no rub or gallop. Abdomen is soft. Normoactive bowel sounds in all four quadrants. Slight tenderness right upper quadrant. No hepatosplenomegaly. No abdominal bruits. Extremities: No cyanosis or clubbing. LABORATORY DATA: Please see below. ACTIVITY: [As tolerated]. DIET: As tolerated DISPOSITION: 01 Home, Self-Care. DISCHARGE INSTRUCTIONS: PMD in [address] Masterson in 1 week DISCHARGE CONDITION: [Stable]. TIME SPENT ON DISCHARGE: 35 minutes. Vital Signs/I&Os Vital Signs Date Time Temp Pulse Resp B/P (MAP) Pulse Ox O2 Delivery O2 Flow Rate FiO2 06/26/19 08:43 75 126/61 06/26/19 06:00 97.6 18 93 Room Air I&O- Last 24 Hours up to 6 AM 06/26/19 06:00 Intake Total 900 ml Output Total 50 ml Balance 850 ml Laboratory Data Labs 24H Laboratory Tests 2 06/25/19 17:32: Bedside Glucose (Misc Panel) 101 06/25/19 19:52: Bedside Glucose (Misc Panel) 181H 06/26/19 06:20: Anion Gap 9, Glomerular Filtration Rate 33.2, Calcium Level 8.5L 06/26/19 06:22: Immature Granulocyte % (Auto) 0.8, Neutrophils (%) (Auto) 55.2, Lymphocytes (%) (Auto) 24.9, Monocytes (%) (Auto) 13.9H, Eosinophils (%) (Auto) 4.6H, Basophils (%) (Auto) 0.6, Neutrophils # (Auto) 2.8, Lymphocytes # (Auto) 1.2L, Monocytes # (Auto) 0.7, Eosinophils # (Auto) 0.2, Basophils # (Auto) 0.0, Nucleated Red Blood Cells % (auto) 0.0 06/26/19 07:20: Bedside Glucose (Misc Panel) 113H 06/26/19 12:58: Bedside Glucose (Misc Panel) 159H CBC/BMP Laboratory Tests 06/26/19 06:20 06/26/19 06:22 FSBS Laboratory Tests Test 06/25/19 17:32 06/25/19 19:52 06/26/19 07:20 06/26/19 12:58 Range/Units Bedside Glucose (Misc Panel) 101 181 113 159 83-110 MG/DL Microbiology Microbiology 06/21/19 Urine Culture - Final, Complete Klebsiella Pneumoniae Discharge Medications Scheduled Allopurinol (Zyloprim) 300 Mg Tab, 300 MG PO QHS, (Reported) Aspirin (Aspir 81) 81 Mg Tablet.dr, 81 MG PO DAILY, (Reported) Calcium Carbonate/Vitamin D3 (Calcium 600 + Vit D 400 Softgl) 1 Each Capsule, 1 CAP PO BID, (Reported) Cholecalciferol (Vitamin D3) (Vitamin D3) 1,000 Unit Tablet, 2,000 UNIT PO DAILY, (Reported) Ferrous Sulfate (Ferrous Sulfate) 325 Mg Tab, 325 MG PO BID, (Reported) Furosemide (Furosemide) 40 Mg Tablet, 40 MG PO DAILY Gemfibrozil (Gemfibrozil) 600 Mg Tablet, 600 MG PO BID, (Reported) Glimepiride (Glimepiride) 2 Mg Tablet, 2 MG PO DAILY, (Reported) Levofloxacin (Levofloxacin) 250 Mg Tablet, 250 MG PO DAILY@06 Levothyroxine Sodium (Synthroid) 75 Mcg Tab, 37.5 MCG PO DAILY, (Reported) Loratadine (Loratadine) 10 Mg Tablet, 10 MG PO DAILY, (Reported) Metoprolol Succinate (Toprol Xl) 50 Mg Tab, 100 MG PO DAILY, (Reported) Omeprazole (Omeprazole) 20 Mg Capsule.dr, 40 MG PO DAILY, (Reported) Spironolactone (Spironolactone) 25 Mg Tablet, 25 MG PO DAILY, (Reported) Sucralfate (Sucralfate) 1 Gm Tablet, 1 GM PO ACHS, (Reported) Scheduled PRN Fluticasone Propionate (Flonase Allergy Relief) 50 Mcg/Act Spr, 1 SPRAY NARES DAILY PRN for NASAL CONGESTION, (Reported) Ondansetron HCl (Ondansetron HCl) 4 Mg Tablet, 4 MG PO Q6H PRN for NAUSEA OR VOMITING, (Reported) Allergies Coded Allergies: latex (Verified Allergy, Severe, Anaphylaxis, 10/30/18) [place] (Verified Allergy, Unknown, 10/30/18) codeine (Verified Adverse Reaction, Intermediate, Dizziness, Blurred Vision, Headache, Dry Mouth, 10/30/18) MATEUSZ CARTAGENA MD Jun 26, 2019 15:07
--- NOTE | 2019-06-26 17:02 | IPN ---
DATE: 06/26/2019 Mrs. Doty is seen this morning on her bedside. She is sitting in the chair and feels well. She denies any nausea, vomiting, dyspnea or chest pain. Her oral intake is adequate and IV fluid has been stopped more than 24 hours ago. PHYSICAL EXAMINATION: Temperature 97.6 degrees Fahrenheit, heart rate 75 per minute and respiratory rate 18 per minute. Blood pressure 126/60 mmHg and oxygen saturation 93% on room air. Head is atraumatic. Neck is supple and jugular venous distention (JVD) is not visible sitting upright. Lungs sound clear to auscultation. Heart sounds are regular. Abdomen is soft, obese and nontender and bowel sounds are normal. Extremities without any cyanosis or clubbing. She does not have any peripheral edema at present. Neurologically, she is at her baseline mentation. LABORATORY DATA: Today's laboratories show WBC count 5.0, hemoglobin 9.7 and hematocrit 35.4. Sodium 140, potassium 3.8, CO2 21, BUN 61 and creatinine 1.59. PROBLEMS: 1. Acute renal failure superimposed on chronic kidney disease. Kidney function has improved back to baseline. She has been off diuretics since admission. I would recommend to resume Lasix 40 mg daily and spironolactone 25 mg daily. She has a history of congestive heart failure and would be in risk for congestive heart failure without diuretic. 2. Hypokalemia. Her potassium level has improved with supplement. I would suggest to continue with oral potassium supplement once a day as she was taking prior to admission. She will followup in the office next week and have her laboratories rechecked. 3. Anemia. Her anemia is mild and related to chronic kidney disease. No urgent intervention is indicated. She will be followed up as an outpatient. 4. Congestive heart failure. At present, her volume status is well-compensated. However, she remains at risk for congestive heart failure (CHF) without diuretic. I recommend to resume Lasix 40 mg daily and spironolactone 25 mg daily. DISPOSITION: From a renal standpoint, the patient can be discharged to home today and followup in the office next week.
[2019-06-27] MEDS ORDERED: LevoFLOXacin 250 MG TABLET PO SCH (06:00)
== END 2019-06-26 13:26 | disposition home or self-care (01) | DRG 683 ==
LOC: EDBD 12:38 → M ED 12:38 → M ED INP 14:26 → M PCU 16:09 → M MS5PR 06-23 00:20 → M MS4PR 06-25 14:25
PROVIDERS: ADMIT General Practice; ATTEND Internal Medicine Nephrology
DX: N17.9 Acute kidney failure, unspecified (principal); I44.2 Atrioventricular block, complete; N39.0 Urinary tract infection, site not specified; E87.1 Hypo-osmolality and hyponatremia; N18.5 Chronic kidney disease, stage 5; I48.0 Paroxysmal atrial fibrillation; E86.0 Dehydration; I27.20 Pulmonary hypertension, unspecified; E55.9 Vitamin D deficiency, unspecified; I50.810 Right heart failure, unspecified; E87.5 Hyperkalemia; I08.1 Rheumatic disorders of both mitral and tricuspid valves; K27.9 Peptic ulcer, site unspecified, unspecified as acute or chronic, without hemorrhage or perforation; K21.9 Gastro-esophageal reflux disease without esophagitis; E78.5 Hyperlipidemia, unspecified; M06.9 Rheumatoid arthritis, unspecified; Z95.0 Presence of cardiac pacemaker; E03.9 Hypothyroidism, unspecified; E11.22 Type 2 diabetes mellitus with diabetic chronic kidney disease; I49.5 Sick sinus syndrome; Z87.81 Personal history of (healed) traumatic fracture; Z90.49 Acquired absence of other specified parts of digestive tract; Z87.891 Personal history of nicotine dependence; Z79.82 Long term (current) use of aspirin; Z79.899 Other long term (current) drug therapy

== ENCOUNTER → 2019-09-17 | Outpatient (REF) | payer MEDICARE, OTHER ==
[~2019-09-17] MED LIST changes: -GLIM2TAB2 PO; +GLIM2TAB4 PO; +LEVO250T12 PO; +OMEP1CAP73 PO; -OMEP20CA4 PO; +ONDA-83 PO
[2019-09-17 14:08] LABS: CALCIUM LEVEL 9.5 MG/DL (8.8-10.2); CREATININE FOR GFR 1.74 MG/DL (0.55-1.30); GLOMERULAR FILTRATION RATE 29.8 (>32); POTASSIUM SERUM 4.4 MEQ/L (3.5-5.1)
== END ==
LOC: M LABDRWAD 12:33
PROVIDERS: ATTEND Internal Medicine
DX: I48.91 Unspecified atrial fibrillation (principal); E78.5 Hyperlipidemia, unspecified; N17.9 Acute kidney failure, unspecified; E03.9 Hypothyroidism, unspecified

== ENCOUNTER → 2019-10-09 | Outpatient (REF) | payer MEDICARE, OTHER ==
[2019-10-09 12:36] LABS: HEMATOCRIT 27.8 % (36.0-47.0); HEMOGLOBIN 8.6 g/dl (12.0-15.5); MEAN CORPUSCULAR HEMOGLOBIN 33.3 pg (27.0-33.0); MEAN CORPUSCULAR HGB CONC 30.9 g/dl (32.0-36.5); MEAN CORPUSCULAR VOLUME 107.8 fl (80.0-96.0); PLATELET COUNT, AUTOMATED 253 10^3/uL (150-450); RED BLOOD COUNT 2.58 10^6/uL (4.00-5.40); WHITE BLOOD COUNT 5.9 10^3/uL (4.0-10.0)
== END ==
LOC: M LABDRWAD 11:52
PROVIDERS: ATTEND Internal Medicine Cardiovascular Disease
DX: D64.9 Anemia, unspecified (principal)

== ENCOUNTER → 2019-10-29 | Outpatient (REF) | payer MEDICARE, OTHER | LOC: M LABDRWAD 12:28 | PROVIDERS: ATTEND Internal Medicine | DX: E03.9 Hypothyroidism, unspecified (principal) ==

== ENCOUNTER → 2019-10-29 | Outpatient (REF) | payer MEDICARE, OTHER ==
[2019-10-29 12:55] LABS: HEMATOCRIT 33.2 % (36.0-47.0); MEAN CORPUSCULAR HEMOGLOBIN 33.1 pg (27.0-33.0); MEAN CORPUSCULAR HGB CONC 30.1 g/dl (32.0-36.5); MEAN CORPUSCULAR VOLUME 109.9 fl (80.0-96.0); PLATELET COUNT, AUTOMATED 246 10^3/uL (150-450); RED BLOOD COUNT 3.02 10^6/uL (4.00-5.40); WHITE BLOOD COUNT 5.8 10^3/uL (4.0-10.0)
== END ==
LOC: M LABDRWAD 12:30
PROVIDERS: ATTEND Physician Assistant
DX: I48.20 Chronic atrial fibrillation, unspecified (principal); E03.9 Hypothyroidism, unspecified

== ENCOUNTER → 2020-04-09 | Outpatient (REF) | payer MEDICARE, OTHER ==
[~2020-04-09] MED LIST changes: +AMLO1TAB24 PO; -AMLO5TAB6 PO; +ASCO250T20 PO; -ASPI81TA85 PO; +ASPI81TA86 PO; +BAYE325T12 PO; +PANT40TA29 PO; -PANT40TA3 PO; -VITA1TAB23 PO
[2020-04-09 14:20] LABS: BASO % 0.6 % (0.0-1.0); EOS # 0.1 10^3/uL (0.0-0.5); EOS % 2.3 % (0.0-3.0); HEMATOCRIT 34.9 % (36.0-47.0); HEMOGLOBIN 11.1 g/dl (12.0-15.5); LYMPH # 0.8 10^3/uL (1.5-5.0); LYMPH % 13.5 % (24.0-44.0); MEAN CORPUSCULAR HEMOGLOBIN 32.9 pg (27.0-33.0); MEAN CORPUSCULAR HGB CONC 31.8 g/dl (32.0-36.5); MEAN CORPUSCULAR VOLUME 103.6 fl (80.0-96.0); MONO # 0.5 10^3/uL (0.0-0.8); MONO % 8.2 % (0.0-5.0); NEUTROPHILS # 4.6 10^3/uL (1.5-8.5); NEUTROPHILS % 74.6 % (36.0-66.0); PLATELET COUNT, AUTOMATED 218 10^3/uL (150-450); RED BLOOD COUNT 3.37 10^6/uL (4.00-5.40); WHITE BLOOD COUNT 6.2 10^3/uL (4.0-10.0)
[2020-04-09 14:45] LABS: ALBUMIN 3.5 GM/DL (3.2-5.2); BILIRUBIN,TOTAL 0.9 MG/DL (0.2-1.0); CALCIUM LEVEL 8.8 MG/DL (8.8-10.2); CREATININE FOR GFR 1.63 MG/DL (0.55-1.30); GLOMERULAR FILTRATION RATE 32.2 (>32); PERCENT SATURATION 15.4 % (13.2-45.0); TOTAL PROTEIN 6.8 GM/DL (6.4-8.2)
[2020-04-09 14:59] LABS: FOLATE 12.3 NG/ML
== END ==
LOC: M LABDRWAD 12:22
PROVIDERS: ATTEND Internal Medicine Hematology & Oncology
DX: D50.9 Iron deficiency anemia, unspecified (principal)

== ENCOUNTER → 2020-05-06 | Outpatient (REF) | payer MEDICARE, OTHER ==
[2020-05-06 13:08] LABS: BASO # 0.1 10^3/uL (0.0-0.2); EOS # 0.2 10^3/uL (0.0-0.5); HEMATOCRIT 37.3 % (36.0-47.0); HEMOGLOBIN 11.7 g/dl (12.0-15.5); LYMPH # 0.8 10^3/uL (1.5-5.0); LYMPH % 13.5 % (24.0-44.0); MEAN CORPUSCULAR HEMOGLOBIN 31.9 pg (27.0-33.0); MEAN CORPUSCULAR HGB CONC 31.4 g/dl (32.0-36.5); MEAN CORPUSCULAR VOLUME 101.6 fl (80.0-96.0); MONO # 0.5 10^3/uL (0.0-0.8); MONO % 7.5 % (0.0-5.0); NEUTROPHILS # 4.4 10^3/uL (1.5-8.5); NEUTROPHILS % 74.2 % (36.0-66.0); PLATELET COUNT, AUTOMATED 249 10^3/uL (150-450); RED BLOOD COUNT 3.67 10^6/uL (4.00-5.40)
[2020-05-06 14:04] LABS: ALBUMIN 3.8 GM/DL (3.2-5.2); BILIRUBIN,TOTAL 0.9 MG/DL (0.2-1.0); CALCIUM LEVEL 9.8 MG/DL (8.8-10.2); CREATININE FOR GFR 1.68 MG/DL (0.55-1.30); FOLATE 12.7 NG/ML; GLOMERULAR FILTRATION RATE 31.1 (>32); PERCENT SATURATION 11.6 % (13.2-45.0); POTASSIUM SERUM 4.6 MEQ/L (3.5-5.1); TOTAL PROTEIN 7.4 GM/DL (6.4-8.2)
== END ==
LOC: M LABDRWAD 12:20
PROVIDERS: ATTEND Internal Medicine Hematology & Oncology
DX: D50.9 Iron deficiency anemia, unspecified (principal)

== ENCOUNTER → 2020-07-08 | Outpatient (REF) | payer MEDICARE, OTHER ==
[2020-07-08 15:08] LABS: BASO # 0.1 10^3/uL (0.0-0.2); BASO % 0.8 % (0.0-1.0); EOS # 0.2 10^3/uL (0.0-0.5); EOS % 2.9 % (0.0-3.0); HEMATOCRIT 35.3 % (36.0-47.0); LYMPH # 1.1 10^3/uL (1.5-5.0); LYMPH % 16.7 % (24.0-44.0); MEAN CORPUSCULAR HEMOGLOBIN 31.3 pg (27.0-33.0); MEAN CORPUSCULAR HGB CONC 31.2 g/dl (32.0-36.5); MEAN CORPUSCULAR VOLUME 100.3 fl (80.0-96.0); MONO # 0.5 10^3/uL (0.0-0.8); MONO % 7.4 % (0.0-5.0); NEUTROPHILS # 4.6 10^3/uL (1.5-8.5); NEUTROPHILS % 70.8 % (36.0-66.0); PLATELET COUNT, AUTOMATED 209 10^3/uL (150-450); RED BLOOD COUNT 3.52 10^6/uL (4.00-5.40); WHITE BLOOD COUNT 6.5 10^3/uL (4.0-10.0)
[2020-07-08 17:08] LABS: PERCENT SATURATION 23.4 % (13.2-45.0); URIC ACID 3.3 MG/DL (2.6-6.0)
== END ==
LOC: M LABDRWAD 12:26
PROVIDERS: ATTEND Internal Medicine Hematology & Oncology
DX: D64.9 Anemia, unspecified (principal)

== ENCOUNTER → 2020-07-08 | Outpatient (REF) | payer MEDICARE, OTHER | LOC: M LABDRWAD 12:24 | PROVIDERS: ATTEND Internal Medicine Gastroenterology | DX: D50.9 Iron deficiency anemia, unspecified (principal); D63.1 Anemia in chronic kidney disease ==

== ENCOUNTER → 2020-08-13 | Outpatient (CLI) | payer MEDICARE, OTHER ==
[~2020-08-13] MED LIST changes: +D31000TA2 PO; +E-Z-GAS II EFFERVESCENT PACKET (SODIUM BICARB./CITRIC ACID/SIMETHICONE) As Ordered ONE; +E-Z-HD 98% w/w 340GM SUSP BTL As Ordered ONE; +E-Z-PAQUE 96% w/w SUSP 176GM BTL As Ordered ONE; +LANTINJ4 SC
--- NOTE | 2020-08-13 17:03 | REP ---
INDICATION: IRON DEFICIENCY ANEMIA. COMPARISON: None TECHNIQUE: This procedure was performed by Madeline Ferris [facility], under the direct supervision of Dr. Choi. Images were reviewed with Dr. Choi prior to dictation. Liquid barium and gas producing crystals were given in the erect position, as well as liquid barium in the prone oblique position in order to perform a double contrast upper GI examination. Additionally liquid barium was given at the end of the examination in order to perform a small-bowel follow-through. FINDINGS: The armoring machine operator film shows no organomegaly or pathological masses. The intestinal gas pattern is unremarkable. There are surgical clips in the right upper quadrant as well as the pelvic area. The oral and pharyngeal stages of deglutition were unremarkable. Esophageal transport is prompt and efficient and there is no evidence of esophagitis, stricture, or mucosal ring. There is evidence of a hiatal hernia. Gastroesophageal reflux was visualized to the level just inferior to the thoracic inlet.. The stomach diehl are normally outlined. The rugal folds are smooth and regular. There is no gastritis, neoplasm, or ulcerative disease. The duodenal diehl are normally outlined. There is a diverticulum of the descending duodenal. The visualized portion of the proximal small bowel appears normal in course and caliber. The barium column was followed through the small bowel to the level of the terminal ileum. Small bowel transit time is approximately 195 minutes. During fluoroscopy gentle palpation shows all loops are freely movable and pliable. There is no fixed angulated loops. The small bowel mucosal pattern is normal in course and caliber. There is no transition to suggest a partial small bowel obstruction. Spot filming of the terminal ileum shows it to be unremarkable. IMPRESSION: 1.Small hiatal hernia. 2. Gastroesophageal reflux to the level just inferior to the thoracic inlet. 3. Descending duodenum diverticulum. 0.8 minutes of fluoroscopy time was utilized for this procedure. Some fluoroscopic images are performed with last image hold technology. These images require no additional radiation. <Electronically signed by Madeline Ferris > 08/13/20 [id number] <Electronically signed by John Choi > 08/13/20 [id number]
== END ==
LOC: M RAD 08:32
PROVIDERS: ATTEND Internal Medicine Gastroenterology
DX: K44.9 Diaphragmatic hernia without obstruction or gangrene (principal); K21.9 Gastro-esophageal reflux disease without esophagitis; D50.9 Iron deficiency anemia, unspecified

== ENCOUNTER → 2020-09-14 | Outpatient (CLI) | payer MEDICARE, OTHER ==
[~2020-09-14] MED LIST changes: -E-Z-GAS II EFFERVESCENT PACKET (SODIUM BICARB./CITRIC ACID/SIMETHICONE) As Ordered ONE; -E-Z-HD 98% w/w 340GM SUSP BTL As Ordered ONE; -E-Z-PAQUE 96% w/w SUSP 176GM BTL As Ordered ONE
--- NOTE | 2020-09-14 10:29 | REP ---
INDICATION: PRESENCE OF CARDIAC PACEMAKER. COMPARISON: Comparison chest x-ray 21 June 2019. TECHNIQUE: PA and lateral views... FINDINGS: Cardiomegaly is observed. Cardiothoracic ratio measures 53.7%. Heart size is felt to be unchanged. A bipolar pacemaker is seen in the right heart view of the left side. Pleural angles are sharp. There is a tiny zone of linear fibrosis in the right lateral pleural angle. Pulmonary vasculature is not increased. No infiltrate is seen. There are degenerative changes in the thoracic spine. IMPRESSION: Cardiomegaly with bipolar pacemaker. No evidence of pleural effusion or pulmonary edema. No focal infiltrate.. <Electronically signed by [place] > 09/14/20 1333
== END ==
LOC: M RAD 09:17
PROVIDERS: ATTEND Orthopaedic Surgery
DX: I51.7 Cardiomegaly (principal); Z95.0 Presence of cardiac pacemaker

== ENCOUNTER → 2020-09-17 | Outpatient (CLI) | payer MEDICARE, OTHER | LOC: M LABSMTC 09:36 | PROVIDERS: ATTEND Anesthesiology | DX: Z01.812 Encounter for preprocedural laboratory examination (principal); Z20.822 Contact with and (suspected) exposure to COVID-19 ==

== ENCOUNTER 2020-09-22 10:55 | Day surgery (SDC) | payer MEDICARE, OTHER ==
[~2020-09-22] VITALS: Ht 149.9 cm; Wt 79.4 kg
[~2020-09-22 10:55] MED LIST changes: +NS 1,000 ML IV ONE
--- OUTSIDE RECORDS SUMMARY | 2020-09-22 11:00 | CCD | Continuity of Care Document ---
Author Author Juana FITZGERALD MD Organization Unknown Address [address] [place] [id number] Phone [phone] Care Team Providers Care Occupational Medicine Physician Name Role Phone Jocy Lin M.D. AUTM [phone] Eddi Bernal M.D. AUTM [phone] Problems Active Problems Provider Date Essential hypertension Dion Ricketts JR, MD Onset: 02/13/20 17 Social History Type Date Description Comments Sex Unknown ETOH Use Consumes 1 beer per day Tobacco Use Start: Unknown End: Unknown Patient is a former smoker quit 1964 Recreational Drug Use Denies Drug Use Allergies, Adverse Reactions, Alerts Active Allergies Reaction Severity Comments Date Latex c 02/15/2011 Codeine 02/15/2011 [place] Oil Sap 06/28/2020 Medications Active Medications SIG Qnty Indications Ordering Provide r Date Efudex 5% Cream apply twice a day to left mandaen for 2 weeks 40gm Dion Ricketts JR, MD 017 Ferrous Sulfate 325(65Fe) mg Tablets 2 qd Unknown Levothyroxine Sodium 75mcg Tablets 1/2 qd Unknown Loratadine 10mg Tablets take 10mg po daily. 30tabs Unknown Vitamin D-3 2000Unit Tablets Unknown Calcium 600 + D [id number] Tablets Unknown Sucralfate 1gm Tablets 1 gm by mouth four times a day Unknown Omeprazole 20mg Capsules DR 20 mg by mouth 2 x a day Unknown Allopurinol 300mg Tablets 1 by mouth every day Unknown Aspirin 325mg Tablets DR 1 by mouth every day Unknown Spironolactone 25mg Tablets d aily Unknown Glimepiride 2mg Tablets 1 day Unknown Metoprolol Succinate ER 50mg Tablets ER 24HR Unknown Immunizations Description No Information Available Vital Signs Date Vital Result Comment 08/17/2020 3:01pm BP Systolic 129 mmHg BP Diastolic 69 mmHg Height 59.5 inches 4'11.50" Weight 175.00 lb BMI (Body Mass Index) 34.8 kg/m2 [place] Body Weight 100 lb Weight 79.380 kg BSA (Body Surface Area) 1.75 m2 06/28/2020 1:57pm BP Systolic 110 mmHg BP Diastolic 80 mmHg Height 59.5 inches 4'11.50" Weight 175.00 lb BMI (Body Mass Index) 34.8 kg/m2 [place] Body Weight 100 lb Weight 79.380 kg BSA (Body Surface Area) 1.75 m2 Results Test Acquired Date Facility Test Result H/L Range Note Laboratory test finding 07/08/2020 [facility] Lab [address] [place] [id number] [phone] Tissue Transglutaminase IgA <2 U/mL Normal 0-3 1 Immunoglobulin A 150.0 mg/dL Normal 70-400 1 Negative 0 - 3 Weak Positive 4 - 10 Positive >10 . Tissue Transglutaminase (tTG) has been identified as the endomysial antigen. Studies have demonstr- ated that endomysial IgA antibodies have over 99% specificity for gluten sensitive enteropathy. Performed at: RN - [facility] [address] [id number] Emergency Crew Supervisor: Nolvia Brown MD, Phone: [phone] Procedures Description No Information Available Medical Devices Description No Information Available Encounters Type Date Location Provider Dx Diagnosis Office Visit 08/17/2020 2:30p [facility] Edvin Fitzgerald MD K62.5 Hemorrhage of anus and rectum D50.9 Iron deficiency anemia, unsp ecified Office Visit 06/28/2020 1:45p [facility] Edvin Fitzgerald MD D50.9 Iron deficiency anemia, unspecified K62.5 Hemorrhage of anus and rectu m Assessments Date Code Description Provider 08/17/2020 K62.5 Hemorrhage of anus and rectum Da vid Reindl, MD 08/17/2020 D50.9 Iron deficiency anemia, unspecif ied Edvin Fitzgerald MD 06/28/2020 D50.9 Iron deficiency anemia, unspecif ied Edvin Fitzgerald MD 06/28/2020 K62.5 Hemorrhage of anus and rectum Varun Fitzgerald MD Plan of Treatment 08/17/2020 - Edvin Fitzgerald MD* K62.5 Hemorrhage of anus and rectum * D50.9 Iron deficiency anemia, unspecified * * Referral:* No Doctor Selected * [facility] Surgery Practice, Surgery,General * Comments:* Small bowel study negative. (Pillcam contraindicated due to pace maker. CT enterography contraiondicated due to renal insufficiency)..EGD and colonoscopies negative for blood loss. Has large hemorrhoids at times.Has had less bleeding for past month, but has some anal pain and continuous rectal bleeding from hemorrhoids. * Recommendations:* At this point will refer her back to surgery to address hemorrhoidal bleeding. Functional Status Description No Information Available Mental Status Description No Information Available Referrals Refer to Reason for Referral Status Appt Date Created [facility] Surgery Practice Hemorrhoidal bleeding. Anemi a. EGD/[place]/SBS negative again. (Pillcam contraindicated due to pace maker, but SBS negative) Created [phone] Edvin Fitzgerald MD GI bleed Scheduled 06/28/2020 [facility], Gastroenterology [address], [address] [place] [address] [phone]
--- OUTSIDE RECORDS SUMMARY | 2020-09-22 11:00 | CCD | Continuity of Care Document ---
Author Author Juana BENJAMIN M.D Organization Unknown Address [address] [address] Phone [phone] Care Team Providers Care Resident Services Manager Name Role Phone Rafal Garcia M.D. AUTM [phone] [facility] Cardiology - Cardiovascular Disease AUTM [phone] Giorgi Masterson M.D. AUTM Problems Active Problems Provider Date Hyperlipidemia Robert Benjamin M.D. Onset: 3 Senile osteoporosis Robert Benjamin M.D. Onset: 3 Benign essential hypertension Robert Benjamin M.D. Onset: 06/04/2013 Hypothyroidism Robert Benjamin M.D. Onset: 3 Atrial fibrillation Robert Benjamin M.D. Onset: 3 Type 2 diabetes mellitus Robert Benjamin M.D. Onset: 01/2013 Gout Robert Benjamin M.D. Onset: 3 Rheumatoid arthritis Robert Benjamin M.D. Onset: 08/19/19 15 Congestive heart failure Robert Benjamin M.D. Onset: 08/06 Essential hypertension Robert Benjamin M.D. Onset: 2014 Social History Type Date Description Comments Sex Unknown ETOH Use Rarely consumes beer Tobacco Use Start: Unknown End: Unknown Patient is a former smoker Allergies, Adverse Reactions, Alerts Active Allergies Reaction Severity Comments Date Latex swelling 06/11/2013 [place] small "black" spots on skin 06/11/2013 Codeine hives 06/11/2013 Medications Active Medications SIG Qnty Indications Ordering Provide r Date Insulin Syringe-Needle U-100 31G X 1/4" 1 ML Misc use to inject lantus insulin once daily as directed 1Box E11.9 Robert Benjamin M.D. 07/06/2020 Lantus 100Unit/ML Solution inject 10 units daily 30ml Robert Benjamin M.D. 06/10/20 20 Zofran 4mg Tablets 1 tab by mouth every 6 hours as needed nausea 30tabs Robert Benjamin M.D. 1 08/20/2018 Freestyle Lancets Misc use to check blood sugar four times a day times daily dx:e11.9 300units [id number] Robert Benjamin M.D. 11/25/2018 Freestyle Test Strips to test blood sugars 3 times a day e11.9 300units Robert Benjamin M. D. 11/25/2018 Sucralfate 1gm Tablets take 1 tablet four times a day (max daily dose: 4) mdd 4 360tabs Robert Benjamin M.D. 08/31/2015 Calcium 600+D Tablets 1 po b id 60tabs Unknown 06/11/2013 Flonase 50mcg/Act Suspension 2 sprays each nares qd 3units Robert Benjamin M.D. 06/11/20 13 Loratadine 10mg Tablets Take 1 Tablet Daily (Max Daily Dose: 1) 90Robert Vuong M.D . 06/11/2013 Iron (Ferrous Sulfate) 325(65Fe) mg Tablets 1 by mouth twice a day OTC Unknown Vitamin D3 25mcg (1000 Ut) Capsule s 1 by mouth every day OTC Unknown Aspirin 325mg Tablets 1 by mouth every day prn Unknown Levothyroxine Sodium 75mcg Tablets Take 1 Tablet Daily 90Robert Vuong M.D. Glimepiride 2mg Tablets 1 by mouth every day Robert Benjamin M.D. Spironolactone 25mg Tablets 2 by mouth every day Giorgi Masterson M.D. Allopurinol 300mg Tablets Take 1 Tablet Daily (Max Daily Dose: 1) 90Robert Vuong M.D . Lasix 40mg Tablets 1 1/2 tabs by mouth bid Unknown Albuterol Sulfate Nebulizer 1 vial via nebulizer every 4 hours as needed Unknown Metoprolol Succinate ER 50mg Tablets ER 24HR 2 by mouth in morning, 1 po in evening [facility] Cardiology Omeprazole 20mg Capsules DR Take 2 Capsules Every Morning. Maximum Daily Dose 2 180caps [facility] Robert oscar M.D. History Medications Pen [place] 31G X 6 mm Misc use to inject lantus insulin once daily 100units E11.9 Robert Benjamin M.D . 06/16/2020 - 07/06/2020 Immunizations CPT Code Status Date Vaccine Lot # [id number] Given 06/09/2020 Influenza Virus Vaccine, Quadrivalent, Slit Virus, Im Use 3Y & Up [id number] 07543 Given 06/18/2018 Influenza Virus Vaccine, Quadrivalent, Slit Virus, Im Use 3Y & Up [id number] 33606 Given 06/25/2017 Influenza Virus Vaccine, Quadrivalent, Slit Virus, Im Use 3Y & Up [id number] 05205 Given 05/10/2016 Influenza Virus Vaccine, Quadrivalent, Slit Virus, Im Use 3Y & Up [id number] 69845 Given 07/26/2015 Pneumococcal Immunization 54291 Given 06/11/2013 Influenza Vaccin e (Fluzone) 3Yrs Of Age Or Older Medicare Plans 85667 Given 06/11/2013 Influenza Virus Vac. Split Virus Individuals 3 Years And Above [id number] Vital Signs Date Vital Result Comment 09/08/2020 10:25am BP Systolic 118 mmHg BP Diastolic 68 mmHg Body Temperature 97.3 F Heart Rate 82 /min Respiratory Rate 14 /min Height 59.50 inches 4'11.50" Weight 173.00 lb Scott Body Weight 100 lb BMI (Body Mass Index) 34.4 kg/m2 O2 % BldC Oximetry 92 % 06/16/2020 1:10pm BP Systolic 128 mmHg BP Diastolic 60 mmHg Body Temperature 97.0 F Heart Rate 78 /min Respiratory Rate 20 /min Height 59.50 inches 4'11.50" Weight 180.00 lb Scott Body Weight 100 lb BMI (Body Mass Index) 35.7 kg/m2 O2 % BldC Oximetry 97 % Results Test Acquired Date Facility Test Result H/L Range Note Laboratory test finding 09/08/2020 [facility] Uric Acid <pending> Laboratory test finding 09/08/2020 [facility] Hemoglobin A1c <pending> % 4.50-6.20 Laboratory test finding 09/08/2020 [facility] TSH <pending> Laboratory test finding 06/09/2020 [facility] TSH 4.233 ulU/mL 0.60 - 4.8 CBC 06/09/2020 [facility] WBC 5.4 10E3/uL 4.1 - 10.9 1 RBC 3.66 10E6/uL Low 4.20 - 6.30 HGB 11.5 g/dL Low 12.0 - 18.0 HCT 35.8 % Low 37.0 - 51.0 MCV 97.8 fL High 80.0 - 97.0 MCH 31.4 pg 26.0 - 32.0 MCHC 32.1 g/dL 31.0 - 36.0 PLT 197 10E3/uL 140 - 440 RDW-CV 15.8 % High 11.5 - 14.5 Lym% 14.1 % 10.0 - 58.5 Neut% 77.0 % 37.0 - 92.0 MXD% 8.9 % 0.1 - 24.0 Lym# 0.8 10E3/uL 0.6 - 4.1 Neut# 4.1 % 2.0 - 7.8 MXD# 0.5 10E3/uL 0.0 - 1.8 MPV 9.7 fL 9.0 - 13.0 Laboratory test finding 06/09/2020 [facility] Uric Acid 4.2 mg/dL 2.4 - 5.7 CMP 06/09/2020 [facility] Glu 202 mg/dL High 70 - 110 BUN 60 mg/dL High 8 - 23 Creat 1.7 mg/dL High 0.5 - 1.0 BUN/Creatinine Ratio 35.7 CALC Na 135 mmol/L Low 136 - 145 K 4.8 mmol/L 3.5 - 5.1 CL 98.8 mmol/L 98.0 - 107.0 Co2 19.4 mmol/L Low 22.0 - 29.0 CA 9.6 mg/dL 8.6 - 10.2 TP 6.7 g/dL 6.6 - 8.7 Alb 4.5 g/dL 3.4 - 4.8 A/G Ratio 2.1 CALC Globulin 2.2 CALC Alp 285.1 U/L High 35 - 129 Alt (SGPT) 11 U/L 0 - 41 Ast (Sgot) 17 U/L 0 - 40 Tbili 0.97 mg/dL 0.0 - 1.2 Osmolality-Calculated 293.7 CALC Anion Gap 22 mmol/L eGFR 32 # Calc 2 eGFR Non-Afr. Iranian 28 # Calc 3 Lipid Panel 06/09/2020 [facility] Chol 165 mg/dL 0 - 200 Trig 239 mg/dL High 40 - 200 HDL 29 mg/dL Low 45 - 65 LDL_C 88 Calc 75 - 129 Cho/HDL Ratio 5.7 CALC Laboratory test finding 06/09/2020 [facility] Hemoglobin A1c 9.6 % High 4.50-6.20 CMP 03/09/2020 [facility] Glu 228 mg/dL High 70 - 110 BUN 65 mg/dL High 8 - 23 Creat 2.1 mg/dL High 0.5 - 1.0 BUN/Creatinine Ratio 30.3 CALC Na 129 mmol/L Low 136 - 145 K 5.7 mmol/L High 3.5 - 5.1 CL 93.7 mmol/L Low 98.0 - 107.0 Co2 21.8 mmol/L Low 22.0 - 29.0 CA 9.2 mg/dL 8.6 - 10.2 TP 6.7 g/dL 6.6 - 8.7 Alb 4.6 g/dL 3.4 - 4.8 A/G Ratio 2.1 CALC Globulin 2.2 CALC Alp 235.4 U/L High 35 - 129 Alt (SGPT) 11 U/L 0 - 41 Ast (Sgot) 18 U/L 0 - 40 Tbili 0.92 mg/dL 0.0 - 1.2 Osmolality-Calculated 285.6 CALC Anion Gap 20 mmol/L eGFR 25 # Calc 4 eGFR Non-Afr. Iranian 21 # Calc 5 Lipid Panel 03/09/2020 [facility] Chol 197 mg/dL 0 - 200 Trig 411 mg/dL High 40 - 200 HDL 29 mg/dL Low 45 - 65 LDL_C UNABLE TO CALC. Calc Abnormal 75 - 129 Cho/HDL Ratio 6.9 Calc CBC 03/09/2020 [facility] WBC 6.4 10E3/uL 4.1 - 10.9 RBC 3.39 10E6/uL Low 4.20 - 6.30 HGB 11.2 g/dL Low 12.0 - 18.0 HCT 33.5 % Low 37.0 - 51.0 MCV 98.8 fL High 80.0 - 97.0 MCH 33.0 pg High 26.0 - 32.0 MCHC 33.4 g/dL 31.0 - 36.0 PLT 240 10E3/uL 140 - 440 RDW-CV 15.4 % High 11.5 - 14.5 Lym% 11.5 % 10.0 - 58.5 Neut% 77.9 % 37.0 - 92.0 MXD% 10.6 % 0.1 - 24.0 Lym# 0.7 10E3/uL 0.6 - 4.1 Neut# 5.0 % 2.0 - 7.8 MXD# 0.7 10E3/uL 0.0 - 1.8 MPV 9.8 fL 9.0 - 13.0 Laboratory test finding 03/09/2020 [facility] TSH 4.762 ulU/mL 0.60 - 4.8 1 NORMAL RANGES Age WBC RBC HGB HCT MCV PLT Adult M 4.1-10.9 4.20-6.30 12.0-18.0 37.0-51.0 80-97 140-440 Adult F 4.1-10.9 4.04-5.48 12.0-18.0 37.0-51.0 80-97 140-440 0 -1 Yr 5.0-20.0 3.9-5.9 15-18 MV: 44 MV: 91 MV: 277 2-9 Yr. 6.0-17.0 3.8-5.4 11-13 MV: 37 MV: 78 MV: 300 10 Yrs. 5.0-13.0 3.8-5.4 12-15 MV: 39 MV: 80 MV: 250 NOTE: * FOR ADULT BLACK MALES AND FEMALES, NORMAL WBC IS 2.9-7.7 K/ML * FOR ADULT BLACK MALES AND FEMALES, NORMAL RBC,HGB, AND HCT IS 5% LESS SOURCE FOR DATA: [employer] 1800 OPERATION MANUAL( AUTOMATED BLOOD COUNTS AND DIFF.) APPENDIX B-3 CHRONIC KIDNEY DISEASE STAGING PER NKF: MALE GFR INTERPRETATION: 20-49 YRS: >60 mL/min Normal 50-59 YRS: >56 mL/min Normal 60-69 YRS: >49 mL/min Normal 70-79 YRS: >42 mL/min Normal 80 and above >35 mL/min Normal FEMALE GRF INTERPRETATION: 20-39 YRS: >60 mL/min Normal 40-49 YRS: >58 mL/min Normal 50-59 YRS: >51 mL/min Normal 60-69 YRS: >45 mL/min Normal 70-79 YRS: >39 mL/min Normal 80 and above >32 mL/min NormalCLASSIFICATION CHOLESTEROL FOR ADULTS CHILDREN/ADOLESCENTS* DESIRABLE: <200 MG/DL <170 MG/DL BORDER-LINE HIGH RISK: 200-239 MG/DL 170-199 MG/DL HIGH RISK: >240 MG/DL >200 MG/DL CLASS. FOR PRIMARY LDL CHOL PREVENTION: LDL CHOL-CHILD/ADOLESCENTS* DESIRABLE: <130 MG/DL <110 MG/DL BORDERLINE-HIGH RISK: 130-159 MG/DL 110-129 MG/DL HIGH RISK: >160 MG/DL >130 MG/DL *CHILDREN AND ADOLESCENTS REPRESENTS INDIVIDUALA AGED 2-19 YEARS EXCLUSIVE. 2 CKD-EPI 3 CKD-EPI 4 CKD-EPI 5 CKD-EPI Procedures Date Code Description Status 02/26/2017 [id number] Mammogram Completed 02/14/2016 [id number] Mammogram Completed Medical Devices Description No Information Available Encounters Type Date Location Provider Dx Diagnosis Office Visit 09/08/2020 10:20a [facility] Robert Benjamin M. D. E11.9 Type 2 diabetes mellitus without complications I50.9 Heart failure, unspecified E78.5 Hyperlipidemia, unspecified E03.9 Hypothyroidism, unspecified I48.91 Unspecified atrial fibrillat ion M10.9 Gout, unspecified Office Visit 06/16/2020 1:00p [facility] Alexandru Coelho PA E11.9 Type 2 diabetes mellitus without complic ations Office Visit 06/09/2020 9:15a [facility] Robert Benjamin M. D. E11.9 Type 2 diabetes mellitus without complications I50.9 Heart failure, unspecified E78.5 Hyperlipidemia, unspecified E03.9 Hypothyroidism, unspecified I48.91 Unspecified atrial fibrillat ion M10.9 Gout, unspecified Z23 Encounter for immunization Office Visit 03/09/2020 9:30a [facility] Robert Benjamin M. D. E11.9 Type 2 diabetes mellitus without complications I50.9 Heart failure, unspecified E78.5 Hyperlipidemia, unspecified E03.9 Hypothyroidism, unspecified I48.91 Unspecified atrial fibrillat ion M10.9 Gout, unspecified Assessments Date Code Description Provider 09/08/2020 E11.9 Type 2 diabetes mellitus without complications Robert Benjamin M.D. 09/08/2020 I50.9 Heart failure, unspecified Brian Robert barber M.D. 09/08/2020 E78.5 Hyperlipidemia, unspecified [facility] Robert cornejo M.D. 09/08/2020 E03.9 Hypothyroidism, unspecified [facility] Robert cornejo M.D. 09/08/2020 I48.91 Unspecified atrial fibrillation Robert Benjamin M.D. 09/08/2020 M10.9 Gout, unspecified Albert Benjamin M.D. 06/16/2020 E11.9 Type 2 diabetes mellitus without complications Kathleen Coelho PA 06/09/2020 E11.9 Type 2 diabetes mellitus without complications Robert Benjamin M.D. 06/09/2020 I50.9 Heart failure, unspecified Brian Robert barber M.D. 06/09/2020 E78.5 Hyperlipidemia, unspecified [facility] helRobert sims M.D. 06/09/2020 E03.9 Hypothyroidism, unspecified [facility] Robert cornejo M.D. 06/09/2020 I48.91 Unspecified atrial fibrillation Robert Benjamin M.D. 06/09/2020 M10.9 Gout, unspecified Albert Benjamin M.D. 06/09/2020 Z23 Encounter for immunization Robert Caballero M.D. 03/09/2020 E11.9 Type 2 diabetes mellitus without complications Robert Benjamin M.D. 03/09/2020 I50.9 Heart failure, unspecified Brian Robert barber M.D. 03/09/2020 E78.5 Hyperlipidemia, unspecified [facility] helRobert sims M.D. 03/09/2020 E03.9 Hypothyroidism, unspecified [facility] Robert cornejo M.D. 03/09/2020 I48.91 Unspecified atrial fibrillation Robert Benjamin M.D. 03/09/2020 M10.9 Gout, unspecified Albert Benjamin M.D. Plan of Treatment Future Appointment(s):* 12/13/2020 9:15 am - Robert Benjamin M.D. at [facility] * 09/15/2020 9:30 am - Robert Benjamin M.D. at [facility] Functional Status Description No Information Available Mental Status Description No Information Available Referrals Refer to Dr Reason for Referral Status Appt Date [facility] Dermatology nonhealing lesion on right earlobe-eval and rx Created [address] [place] [address] [phone] [facility] Orthopedics left leg pain, s/p ORIF last year per Dr Stacie huddleston and rx Sent [address] [facility] [address] [place] [address] [phone] [facility] Dermatology scaly red rash left earlobe- eval and rx Sent [address] [place] [address] [phone] [facility] Rheumatology RA- eval and rx Sent DR. Rowland [id number] [facility] [address] [place] [address] [phone]
--- OUTSIDE RECORDS SUMMARY | 2020-09-22 11:00 | CCD | Continuity of Care Document ---
Author Author Juana FITZGERALD MD Organization Unknown Address [address] [place] [address] Phone [phone] Care Team Providers Care Auto Brake Mechanic Name Role Phone Jocy Lin M.D. AUTM [phone] Eddi Bernal M.D. AUTM [phone] Problems Active Problems Provider Date Essential hypertension Dion Ricketts JR, MD Onset: 02/13/20 17 Social History Type Date Description Comments Sex Unknown ETOH Use Consumes 1 beer per day Tobacco Use Start: Unknown End: Unknown Patient is a former smoker quit 1964 Recreational Drug Use Denies Drug Use Allergies, Adverse Reactions, Alerts Active Allergies Reaction Severity Comments Date Latex c 02/15/2011 Codeine 02/15/2011 [place]uka Oil Sap 06/28/2020 Medications Active Medications SIG Qnty Indications Ordering Provide r Date Efudex 5% Cream apply twice a day to left islam for 2 weeks 40gm Dion Ricketts JR, MD 017 Ferrous Sulfate 325(65Fe) mg Tablets 2 qd Unknown Levothyroxine Sodium 75mcg Tablets 1/2 qd Unknown Loratadine 10mg Tablets take 10mg po daily. 30tabs Unknown Vitamin D-3 2000Unit Tablets Unknown Calcium 600 + D [id number] Tablets Unknown Sucralfate 1gm Tablets 1 gm [...] Available Vital Signs Date Vital Result Comment 06/28/2020 1:57pm BP Systolic 110 mmHg BP Diastolic 80 mmHg Height 59.5 inches 4'11.50" Weight 175.00 lb BMI (Body Mass Index) 34.8 kg/m2 [place] Body Weight 100 lb Weight 79.380 kg BSA (Body Surface Area) 1.75 m2 11/12/2018 11:02am BP Systolic 136 mmHg Ra BP Diastolic 72 mmHg Ra Heart Rate 64 /min Height 59.5 inches 4'11.50" Weight 194.00 lb BMI (Body Mass Index) 38.5 kg/m2 [place] Body Weight 100 lb Weight 87.998 kg BSA (Body Surface Area) 1.83 m2 Results Description No Information Available Procedures Description No Information Available Medical Devices Description No Information Available Encounters Description No Information Available Assessments Date Code Description Provider 06/28/2020 D50.9 Iron deficiency anemia, unspecif ied Edvin Fitzgerald MD 06/28/2020 K62.5 Hemorrhage of anus and rectum Da oniel Fitzgerald MD Plan of Treatment 06/28/2020 - Edvin Fitzgerald MD* D50.9 Iron deficiency anemia, unspecified * K62.5 Hemorrhage of anus and rectum * * New Labs:* Tissue Transglutaminase Iga, Ordered: 06/28/20 * Immunoglobulin A, Ordered: 06/28/20 * New Xrays:* Upper GI W/ Small Bowel Follow Through, Ordered: 06/28/20 * Comments:* Pt with chronic iron deficit anemia. has had multiple upper and lower scopes over the past 2 years. She tells me that has fresh rectal bleeding for several days at a time. "feels like having a constant period". then this usually stops after 5-10 days. * Follow up:* 1 month * Recommendations:* She has had several EGD and Colonoscopies over the past 2-3 years, without a definite cause for her rectal bleeding and I do not think I can add any more info by repeating her endocopies once again. I will hold off on repeating these. From her history, It seems she has significant blood loss from her hemorrhoids, however, this is not typical to produce iron deficit. In view of iron deficit, I would likel to complete the work up with a small bowel study (Has pace maker=contraindication to pillcam and her creat is elevated precluding a safe CT enterography). If SBS is normal, then will refer her back to surgery to re assess her hemorrhiodal bleeding. Functional Status Description No Information Available Mental Status Description No Information Available Referrals Refer to Reason for Referral Status Appt Date Edvin Fitzgerald MD GI bleed Scheduled 06/28/2020 [facility], Gastroenterology [address] [facility], [address] [place] [address] [phone]
--- OUTSIDE RECORDS SUMMARY | 2020-09-22 11:00 | CCD | Continuity of Care Document ---
Author Author Juana ARNDT DPM Organization Unknown Address [address] [place] [address], [address] [place] [address] Phone [phone] Care Team Providers Care Associate Biological Sales Name Role Phone Robert Benjamin M.D.M [phone] Problems Active Problems Provider Date Acquired hallux valgus Dustin Arndt DPM Onset: 3 Onychomycosis Dustin Arndt DPM Onset: 10/17/2012 Type 2 diabetes mellitus with diabetic polyneuropathy Eyad Arndt DPM Onset: 09/04/2019 Social History Type Date Description Comments Sex Unknown ETOH Use Rarely consumes alcohol 2 or 3 a year. Tobacco Use Start: Unknown End: Unknown Patient is a former smoker Started at the age of 20. Quit at he age of 36. .5 pack a week. Allergies, Adverse Reactions, Alerts Active Allergies Reaction Severity Comments Date Codeine Latex Aller 02/08/2011 Latex 02/08/2011 Latex 02/08/2011 Medications Active Medications SIG Qnty Indications Ordering Provide r Date Ammonium Lactate 12% Cream apply to feet daily 280gm Eyad Arndt DPM 02/23/2016 Colcrys 0.6mg Tablets 1 by mouth twice a day 30tabs Dsutin Arndt DPM 08/21/2014 Gabapentin Unknown Flonase Unknown Iron Supplement Unknown 0 Colchicine Unknown Janumet XR Unknown Metoprolol Tartrate Unknown Hydroxychloroquine Sulfate Unknown Omeprazole Unknown Loratadine Unknown Hydrochlorothiazide Unknown Pradaxa Unknown Gemfibrozil Unknown Levothyroxine Sodium Unknown Avelox Unknown Levofloxacin Unknown Furosemide Unknown Potassium Chloride ER Unknown Immunizations Description No Information Available Vital Signs Date Vital Result Comment 12/28/2016 1:20pm Height 59 inches 4'11" Weight 214.00 lb BP Systolic 114 mmHg BP Diastolic 64 mmHg Heart Rate 68 /min BMI (Body Mass Index) 43.2 kg/m2 08/21/2014 10:44am Height 59 inches 4'11" Weight 202.00 lb BP Systolic 118 mmHg BP Diastolic 60 mmHg Heart Rate 68 /min BMI (Body Mass Index) 40.8 kg/m2 Results Description No Information Available Procedures Date Code Description Status 08/16/2020 87790 Debridement 6-10 Nails Electric Completed 06/07/2020 17051 Debridement 6-10 Nails Electric Completed 03/29/2020 20876 Debridement 6-10 Nails Electric Completed Medical Devices Description No Information Available Encounters Description No Information Available Assessments Date Code Description Provider 08/16/2020 B35.1 Tinea unguium Eyad Arndt, DPM 08/16/2020 E11.42 Type 2 diabetes mellitus with di abetic polyneuropathy Eyad Arndt, ELÍAS 06/07/2020 B35.1 Tinea unguium Eyad Arndt, CHELSY 06/07/2020 E11.42 Type 2 diabetes mellitus with di abetic polyneuropathy Eyad Arndt, ELÍAS 03/29/2020 B35.1 Tinea unguium Eyad Arndt, DPM 03/29/2020 E11.42 Type 2 diabetes mellitus with di abetic polyneuropathy Eyad Arndt DPM Plan of Treatment Future Appointment(s):* 10/18/2020 11:15 am - Eyad Arndt DPM at [facility] Functional Status Description No Information Available Mental Status Description No Information Available Referrals Description No Information Available
--- OUTSIDE RECORDS SUMMARY | 2020-09-22 11:00 | CCD | Continuity of Care Document ---
Author Author Juana BENJAMIN M.D Organization Unknown Address [address] [address] Phone [phone] Care Team Providers Care Agribusiness Professor Name Role Phone Rafal Garcia M.D. AUTM [phone] [facility] Cardiology - Cardiovascular Disease AUTM [phone] Giorgi Masterson M.D. AUTM Problems Active Problems [...] Reaction Severity Comments Date Latex swelling 06/11/2013 [place] small "black" spots on skin 06/11/2013 Codeine [...] morning, 1 po in evening [facility] Cardiology Omeprazole 20mg Capsules DR Take 2 Capsules Every Morning. Maximum Daily Dose 2 180caps [facility] Robert oscar M.D. History Medications Pen [place] 31G X 6 mm Misc use to inject lantus insulin once daily 100units E11.9 Robert Benjamin M.D . 06/16/2020 - 07/06/2020 Immunizations CPT Code Status Date Vaccine Lot # [id number] Given 06/09/2020 Influenza Virus Vaccine, Quadrivalent, Slit Virus, Im Use 3Y & Up [id number] 43655 Given 06/18/2018 Influenza Virus Vaccine, Quadrivalent, Slit Virus, Im Use 3Y & Up [id number] 54134 Given 06/25/2017 Influenza Virus Vaccine, Quadrivalent, Slit Virus, Im Use 3Y & Up [id number] 33122 Given 05/10/2016 Influenza Virus Vaccine, Quadrivalent, Slit Virus, Im Use 3Y & Up [id number] 51128 Given 07/26/2015 Pneumococcal Immunization 73306 Given 06/11/2013 Influenza Vaccin e (Fluzone) 3Yrs Of Age Or Older Medicare Plans 12263 Given 06/11/2013 Influenza Virus Vac. Split Virus Individuals 3 Years And Above [id number] Vital Signs Date Vital Result Comment 09/08/2020 10:25am BP Systolic 118 mmHg BP Diastolic 68 mmHg Body Temperature 97.3 F Heart Rate 82 /min Respiratory Rate 14 /min Height 59.50 inches 4'11.50" Weight 173.00 lb [place] Body Weight 100 lb BMI (Body Mass Index) 34.4 kg/m2 O2 % BldC Oximetry 92 % 06/16/2020 1:10pm BP Systolic 128 mmHg BP Diastolic 60 mmHg Body Temperature 97.0 F Heart Rate 78 /min Respiratory Rate 20 /min Height 59.50 inches 4'11.50" Weight 180.00 lb [place] Body Weight 100 lb BMI (Body Mass Index) 35.7 kg/m2 O2 % BldC Oximetry 97 % Results Test Acquired Date Facility Test Result H/L Range Note CMP 09/08/2020 [facility] Glu 179 mg/dL High 70 - 110 1 BUN 62 mg/dL High 8 - 23 Creat 2.0 mg/dL High 0.5 - 1.0 BUN/Creatinine Ratio 30.5 CALC Na 134 mmol/L Low 136 - 145 K 4.6 mmol/L 3.5 - 5.1 CL 96.9 mmol/L Low 98.0 - 107.0 Co2 24.4 mmol/L 22.0 - 29.0 CA 9.5 mg/dL 8.6 - 10.2 TP 6.9 g/dL 6.6 - 8.7 Alb 4.4 g/dL 3.4 - 4.8 A/G Ratio 1.7 CALC Globulin 2.6 CALC Alp 249.2 U/L High 35 - 129 Alt (SGPT) 11 U/L 0 - 41 Ast (Sgot) 17 U/L 0 - 40 Tbili 0.64 mg/dL 0.0 - 1.2 Osmolality-Calculated 290.6 CALC Anion Gap 17 mmol/L eGFR 26 # Calc 2 eGFR Non-Afr. [place] 23 # Calc 3 Lipid Panel 09/08/2020 [facility] Chol 176 mg/dL 0 - 200 Trig 256 mg/dL High 40 - 200 HDL 32 mg/dL Low 45 - 65 LDL_C 93 Calc 75 - 129 Cho/HDL Ratio 5.5 CALC CBC 09/08/2020 [facility] WBC 5.2 10E3/uL 4.1 - 10.9 RBC 3.24 10E6/uL Low 4.20 - 6.30 HGB 10.6 g/dL Low 12.0 - 18.0 HCT 33.0 % Low 37.0 - 51.0 MCV 101.9 fL High 80.0 - 97.0 MCH 32.7 pg High 26.0 - 32.0 MCHC 32.1 g/dL 31.0 - 36.0 PLT 244 10E3/uL 140 - 440 RDW-CV 15.1 % High 11.5 - 14.5 Lym% 17.1 % 10.0 - 58.5 Neut% 74.0 % 37.0 - 92.0 MXD% 8.9 % 0.1 - 24.0 Lym# 0.9 10E3/uL 0.6 - 4.1 Neut# 3.8 % 2.0 - 7.8 MXD# 0.5 10E3/uL 0.0 - 1.8 MPV 9.8 fL 9.0 - 13.0 Laboratory test finding 09/08/2020 [facility] Uric Acid 4.0 mg/dL 2.4 - 5.7 Laboratory test finding 09/08/2020 [facility] Hemoglobin A1c 8.5 % High 4.50-6.20 Laboratory test finding 09/08/2020 [facility] TSH 5.282 ulU/mL High 0.60 - 4.8 Laboratory test finding 06/09/2020 [facility] TSH 4.233 ulU/mL 0.60 - 4.8 CBC 06/09/2020 [facility] WBC 5.4 10E3/uL 4.1 - 10.9 RBC 3.66 10E6/uL Low 4.20 - 6.30 [...] Gap 22 mmol/L eGFR 32 # Calc 4 eGFR Non-Afr. [place] 28 # Calc 5 Lipid Panel 06/09/2020 [facility] Chol 165 mg/dL 0 - 200 Trig 239 mg/dL High 40 - 200 HDL 29 mg/dL Low 45 - 65 LDL_C 88 Calc 75 - 129 Cho/HDL Ratio 5.7 CALC Laboratory test finding 06/09/2020 [facility] Hemoglobin A1c 9.6 % High 4.50-6.20 1 NORMAL RANGES Age WBC RBC HGB [...] HCT IS 5% LESS SOURCE FOR DATA: [employer] 1800 OPERATION MANUAL( AUTOMATED BLOOD COUNTS AND [...] CKD-EPI Procedures Date Code Description Status 02/26/2017 [id number] Mammogram Completed 02/14/2016 [id number] Mammogram Completed Medical Devices Description No Information Available Encounters Type Date Location Provider Dx Diagnosis Office Visit 09/08/2020 10:20a [facility] Robert Benjamin M. D. E11.9 Type 2 diabetes mellitus without complications I50.9 Heart failure, unspecified E78.5 Hyperlipidemia, unspecified E03.9 Hypothyroidism, unspecified I48.91 Unspecified atrial fibrillat ion M10.9 Gout, unspecified Office Visit 06/16/2020 1:00p [facility] Alexandru Coelho PA E11.9 Type 2 diabetes mellitus without complic ations Office Visit 06/09/2020 9:15a [facility] Robert Benjamin M. D. E11.9 Type 2 diabetes mellitus without complications I50.9 Heart failure, unspecified E78.5 Hyperlipidemia, unspecified E03.9 Hypothyroidism, unspecified I48.91 Unspecified atrial fibrillat ion M10.9 Gout, unspecified Z23 Encounter for immunization Assessments Date Code Description Provider 09/08/2020 E11.9 Type 2 diabetes mellitus without complications Robert Benjamin M.D. 09/08/2020 I50.9 Heart failure, unspecified Robert Caballero M.D. 09/08/2020 E78.5 Hyperlipidemia, unspecified [facility] Robert [...] barber M.D. 06/09/2020 E78.5 Hyperlipidemia, unspecified [facility] Robert cornejo M.D. 06/09/2020 E03.9 Hypothyroidism, unspecified MitRobert lemos M.D. 06/09/2020 I48.91 Unspecified atrial fibrillation Robert Benjamin M.D. 06/09/2020 M10.9 Gout, unspecified Albert Benjamin M.D. 06/09/2020 Z23 Encounter for immunization Robert Caballero M.D. Plan of Treatment Future Appointment(s):* 12/13/2020 9:15 am - Robert Benjamin M.D. at [facility] * 09/15/2020 9:30 am - Robert Benjamin M.D. at [facility] Functional Status Description No Information Available Mental Status Description No Information Available Referrals Refer to Reason for Referral Status Appt Date [facility] nonhealing lesion on right yan herb and rx Sent [address] [facility] [address] [place] [address] [phone] [facility] Orthopedics left leg pain, s/p ORIF last year per Dr Stacie huddleston and rx Sent [address] [facility] [address] [place] [address] [phone]
--- OUTSIDE RECORDS SUMMARY | 2020-09-22 11:00 | CCD | Continuity of Care Document ---
Author Author Juana LOPEZ DO Organization Unknown Address [address] [facility] [address], [address] [place] [address] Phone [phone] Care Team Providers Care Jigman Name Role Phone Jocy Lin M.D. AUTM [phone] Eddi Bernal M.D. AUTM [phone] Problems Active Problems Provider Date Essential hypertension Dion Ricketts JR, MD Onset: 02/13/20 17 Social History Type Date Description Comments Sex Unknown ETOH Use Consumes 1 beer per day Tobacco Use Start: Unknown End: Unknown Patient is a former smoker quit 1965 Recreational Drug Use Denies Drug Use Allergies, Adverse Reactions, Alerts Active Allergies Reaction Severity Comments Date Latex c 02/15/2011 Codeine 02/15/2011 [place] Oil Sap 06/28/2020 Medications Active Medications SIG Qnty Indications Ordering Provide r Date Efudex 5% Cream apply twice a day to left orthodox for 2 weeks 40gm Dion Ricketts JR, MD 017 Ferrous Sulfate 325(65Fe) mg Tablets 2 qd Unknown Levothyroxine Sodium 75mcg Tablets 1/2 qd Unknown Loratadine 10mg Tablets take 10mg po daily. 30tabs Unknown Vitamin D-3 2000Unit Tablets Unknown Calcium 600 + D [id number] Tablets Unknown Sucralfate 1gm Tablets 1 gm [...] Succinate ER 50mg Tablets ER 24HR Unknown Furosemide 40mg Tablets 4 1/2 tabs po bid Ana Burton M.D. Lantus 100Unit/ML Solution 10 units qd Robert Benjamin M.D. Immunizations Description No Information Available Vital Signs Date Vital Result Comment 09/02/2020 3:18pm BP Systolic 134 mmHg BP Diastolic 56 mmHg Height 59.5 inches 4'11.50" Weight 175.50 lb BMI (Body Mass Index) 34.8 kg/m2 [place] Body Weight 100 lb Weight 79.607 kg BSA (Body Surface Area) 1.75 m2 08/17/2020 3:01pm BP Systolic 129 mmHg BP Diastolic 69 mmHg Height 59.5 inches 4'11.50" Weight 175.00 lb BMI (Body Mass Index) 34.8 kg/m2 [place] Body Weight 100 lb Weight 79.380 kg BSA (Body Surface Area) 1.75 m2 Results Test Acquired Date Facility Test Result H/L Range Note Laboratory test finding 07/08/2020 [facility] [address] [place] [address] [id number] [phone] Tissue Transglutaminase IgA <2 U/mL Normal 0-3 1 Immunoglobulin A 150.0 mg/dL Normal 70-400 1 Negative 0 - 3 Weak Positive 4 - 10 Positive >10 . Tissue Transglutaminase (tTG) has been identified as the endomysial antigen. Studies have demonstr- ated that endomysial IgA antibodies have over 99% specificity for gluten sensitive enteropathy. Performed at: RN - [facility] [address] [id number] Core Mounter: Nolvia Brown MD, Phone: [phone] Procedures Description No Information Available Medical Devices Description No Information Available Encounters Type Date Location Provider Dx Diagnosis Office Visit 08/17/2020 2:30p [facility] Edvin Fitzgerald MD K62.5 Hemorrhage of anus and rectum D50.9 Iron deficiency anemia, unsp ecified Office Visit 06/28/2020 1:45p [facility] Edvin Fitzgerald MD D50.9 Iron deficiency anemia, unspecified K62.5 Hemorrhage of anus and rectu m Assessments Date Code Description Provider 08/17/2020 K62.5 Hemorrhage of anus and rectum Varun Fitzgerald MD 08/17/2020 D50.9 Iron deficiency anemia, unspecif ied Edvin Fitzgerald MD 06/28/2020 D50.9 Iron deficiency anemia, unspecif ied Edvin Fitzgerald MD 06/28/2020 K62.5 Hemorrhage of anus and rectum Varun Fitzgerald MD Plan of Treatment 08/17/2020 - Edvin Fitzgerald MD* K62.5 Hemorrhage of anus and rectum * D50.9 Iron deficiency anemia, unspecified * * Referral:* John Lopez D.O., Surgery,General * [facility] Surgery Practice, Surgery,General * Comments:* Small bowel [...] to Reason for Referral Status Appt Date John Lopez D.O. RECTAL BLEEDING, HEMORRHOIDS Scheduled 08/24/[address] [place] [address] [address] [place], [place] [id number] [phone] [facility] Surgery Practice Hemorrhoidal bleeding. Anemi a. EGD/[place]/SBS negative again. (Pillcam contraindicated due to pace maker, but SBS negative) Created [phone] Edvin Fitzgerald MD GI bleed Scheduled 06/28/2020 [facility] Gastroenterology [address] [facility], [address] [place] [address] [phone]
--- OUTSIDE RECORDS SUMMARY | 2020-09-22 11:02 | CCD ---
Author Author [facility] Organization [facility] Address Unknown Phone Unavailable Care Team Providers Care Senior Commercial Loan Officer Name Role Phone Barrchadough, Kathleen PA Unavailable Unavailable Barraclough, Kathleen PA Unavailable Unavailable Barraclough, Kathleen PA Unavailable Unavailable Barraclough, Kathleen PA Unavailable Unavailable Barraclough, Kathleen PA Unavailable Unavailable Barraclough, Kathleen PA Unavailable Unavailable FishMalka, PA-C Unavailable Unavailabl e FishMalka, PA-C Unavailable Unavailabl e FishMalka, PA-C Unavailable Unavailabl e FishMalka, PA-C Unavailable Unavailabl e FishMalka, PA-C Unavailable Unavailabl e FishMalka, PA-C Unavailable Unavailabl e FishMalka, PA-C Unavailable Unavailabl e FishMalka, PA-C Unavailable Unavailabl e FishMalka, PA-C Unavailable Unavailabl e FishMalka, PA-C Unavailable Unavailabl e FishMalka, PA-C Unavailable Unavailabl e Fish, [facility], PA-C Unavailable Unavailabl e Fish, [facility], PA-C Unavailable Unavailabl e Fish, [facility], PA-C Unavailable Unavailabl e Fish, [facility], PA-C Unavailable Unavailabl e Fish, [facility], PA-C Unavailable Unavailabl e Fish, [facility], PA-C Unavailable Unavailabl e Fish, [facility], PA-C Unavailable Unavailabl e Fish, [facility], PA-C Unavailable Unavailabl e Fish, [facility], PA-C Unavailable Unavailabl e Fish, [facility], PA-C Unavailable Unavailabl e Fish, [facility], PA-C Unavailable Unavailabl e Fish, [facility], PA-C Unavailable Unavailabl e Fish, [facility], PA-C Unavailable Unavailabl e Fish, [facility], PA-C Unavailable Unavailabl e Fish, [facility], PA-C Unavailable Unavailabl e Fish, [facility], PA-C Unavailable Unavailabl e Fish, [facility], PA-C Unavailable Unavailabl e Fish, [facility], PA-C Unavailable Unavailabl e Fish, [facility], PA-C Unavailable Unavailabl e Fish, [facility], PA-C Unavailable Unavailabl e Fish, [facility], PA-C Unavailable Unavailabl e Fish, [facility], PA-C Unavailable Unavailabl e Jose Alfredo WEST MD Unavailable Unavailable Jose Alfredo WEST MD Unavailable Unavailable Jose Alfredo WEST MD Unavailable Unavailable Jose Alfredo WEST MD Unavailable Unavailable Jose Alfredo WEST MD Unavailable Unavailable Jose Alfredo WEST MD Unavailable Unavailable Jose Alfredo WEST MD Unavailable Unavailable Jose Alfredo WEST MD Unavailable Unavailable Jose Alfredo WEST MD Unavailable Unavailable Jose Alfredo WEST MD Unavailable Unavailable Jose Alfredo WEST MD Unavailable Unavailable Jose Alfredo WEST MD Unavailable Unavailable Jose Alfredo WEST MD Unavailable Unavailable Jose Alfredo WEST MD Unavailable Unavailable Jose Alfredo WEST MD Unavailable Unavailable Jose Alfredo WEST MD Unavailable Unavailable Jose Alfredo WEST MD Unavailable Unavailable Jose Alfredo WEST MD Unavailable Unavailable Jose Alfredo WEST MD Unavailable Unavailable Jose Alfredo WEST MD Unavailable Unavailable Jose Alfredo WEST MD Unavailable Unavailable Jose Alfredo WEST MD Unavailable Unavailable Jose Alfredo WEST MD Unavailable Unavailable Jose Alfredo WEST MD Unavailable Unavailable JENNA H BONIFACIO PARK Unavailable Unavailable JENNA H BONIFACIO PARK Unavailable Unavailable JENNA H BONIFACIO PARK Unavailable Unavailable Jose Alfredo WEST MD Unavailable Unavailable Jose Alfredo WEST MD Unavailable Unavailable Jose Alfredo WEST MD Unavailable Unavailable JENNA H BONIFACIO PARK Unavailable Unavailable JENNA H BONIFACIO PARK Unavailable Unavailable Jose Alfredo WEST MD Unavailable Unavailable JENNA H BONIFACIO PARK Unavailable Unavailable Jose Alfredo WEST MD Unavailable Unavailable JENNA H BONIFACIO PARK Unavailable Unavailable JENNA H BONIFACIO PARK Unavailable Unavailable JENNAJose Alfredo MD Unavailable Unavailable JENNA H BONIFACIO PARK Unavailable Unavailable JENNA H BONIFACIO PARK Unavailable Unavailable JENNA H BONIFACIO PARK Unavailable Unavailable JENNA H BONIFACIO PARK Unavailable Unavailable JENNA H BONIFACIO PARK Unavailable Unavailable Jose Alfredo WEST MD Unavailable Unavailable Jose Alfredo WEST MD Unavailable Unavailable Jose Alfredo WEST MD Unavailable Unavailable Jose Alfredo WEST MD Unavailable Unavailable Jose Alfredo WEST MD Unavailable Unavailable Jose Alfredo WEST MD Unavailable Unavailable Jose Alfredo WEST MD Unavailable Unavailable Jose Alfredo WEST MD Unavailable Unavailable Jose Alfredo WEST MD Unavailable Unavailable Jose Alfredo WEST MD Unavailable Unavailable Jose Alfredo WEST MD Unavailable Unavailable Jose Alfredo WEST MD Unavailable Unavailable Jose Alfredo WEST MD Unavailable Unavailable Jose Alfredo WEST MD Unavailable Unavailable Jose Alfredo WEST MD Unavailable Unavailable Jose Alfredo WEST MD Unavailable Unavailable Jose Alfredo WEST MD Unavailable Unavailable Jose Alfredo WEST MD Unavailable Unavailable Jose Alfredo WEST MD Unavailable Unavailable Jose Alfredo WEST MD Unavailable Unavailable Jose Alfredo WEST MD Unavailable Unavailable Jose Alfredo WEST MD Unavailable Unavailable Jose Alfredo WEST MD Unavailable Unavailable Jose Alfredo WEST MD Unavailable Unavailable Jose Alfredo WEST MD Unavailable Unavailable Jose Alfredo WEST MD Unavailable Unavailable Jose Alfredo WEST MD Unavailable Unavailable Jose Alfredo WEST MD Unavailable Unavailable Jose Alfredo WEST MD Unavailable Unavailable Jose Alfredo WEST MD Unavailable Unavailable Jose Alfredo WEST MD Unavailable Unavailable Jose Alfredo WETS MD Unavailable Unavailable Jose Alfredo WEST MD Unavailable Unavailable Joe, L Rivka PA Unavailable Unavailable Joe, L Rivka PA Unavailable Unavailable Joe, L Rivka PA Unavailable Unavailable Joe, L Rivka PA Unavailable Unavailable Joe, L Rivka PA Unavailable Unavailable Joe, L Rivka PA Unavailable Unavailable Joe, L Rivka PA Unavailable Unavailable Joe, L Rivka PA Unavailable Unavailable Joe, L Rivka PA Unavailable Unavailable Joe, L Rivka PA Unavailable Unavailable Joe, L Rivka PA Unavailable Unavailable Joe, L Rivka PA Unavailable Unavailable Joe, L Rivka PA Unavailable Unavailable Joe, L Rivka PA Unavailable Unavailable Joe, L Rivka PA Unavailable Unavailable Joe, L Rivka PA Unavailable Unavailable Joe, L Rivka PA Unavailable Unavailable Joe, L Rivka PA Unavailable Unavailable Joe, L Rivka PA Unavailable Unavailable Joe, L Rivka PA Unavailable Unavailable Joe, L Rivka PA Unavailable Unavailable Joe, L Rivka PA Unavailable Unavailable Joe, L Rivka PA Unavailable Unavailable Joe, L Rivka PA Unavailable Unavailable Joe, L Rivka PA Unavailable Unavailable Joe, L Rivka PA Unavailable Unavailable Joe, L Rivka PA Unavailable Unavailable Joe, L Rivka PA Unavailable Unavailable Joe, L Rivka PA Unavailable Unavailable Joe, L Rivka PA Unavailable Unavailable Joe, L Rivka PA Unavailable Unavailable Joe, L Rivka PA Unavailable Unavailable Joe, L Rivka PA Unavailable Unavailable Joe, L Rivka PA Unavailable Unavailable Joe, L Rivka PA Unavailable Unavailable Joe, L Rivka PA Unavailable Unavailable Fish, Tatiana Padron MD Unavailable Unavailable Fish, Tatiana Padron MD Unavailable Unavailable Fish, Tatiana Padron MD Unavailable Unavailable Fish, Tatiana Padron MD Unavailable Unavailable Fish, Tatiana Padron MD Unavailable Unavailable Fish, Tatiana Padron MD Unavailable Unavailable Fish, Tatiana Padron MD Unavailable Unavailable Fish, Tatiana Padron MD Unavailable Unavailable Fish, B Vito PARK Unavailable Unavailable Fish, B Vito PARK Unavailable Unavailable Fish, B Vito PARK Unavailable Unavailable Fish, B Vito PARK Unavailable Unavailable Fish, B Vito PARK Unavailable Unavailable Fish, B Vito PARK Unavailable Unavailable Fish, B Vito PARK Unavailable Unavailable Fish, B Vito PARK Unavailable Unavailable Fish, B Vito PARK Unavailable Unavailable Fish, Tatiana Padron MD Unavailable Unavailable Fish, B Vito PARK Unavailable Unavailable Fish, Tatiana Padron MD Unavailable Unavailable Fish, Tatiana Padron MD Unavailable Unavailable Fish, Tatiana Padron MD Unavailable Unavailable Fish, Tatiana Padron MD Unavailable Unavailable Fish, Tatiana Padron MD Unavailable Unavailable Fish, Tatiana Padron MD Unavailable Unavailable Fish, Tatiana Padron MD Unavailable Unavailable Fish, Tatiana Padron MD Unavailable Unavailable Fish, B Vito PARK Unavailable Unavailable Fish, B Vito PARK Unavailable Unavailable Fish, B Vito PARK Unavailable Unavailable Fish, B Vito PARK Unavailable Unavailable Fish, B Vito PARK Unavailable Unavailable Fish, B Vito PARK Unavailable Unavailable Fish, B Vito PARK Unavailable Unavailable Fish, B Vito PARK Unavailable Unavailable Fish, B Vito PARK Unavailable Unavailable Fish, B Vito PARK Unavailable Unavailable Fish, Tatiana Padron MD Unavailable Unavailable Fish, Tatiana Padron MD Unavailable Unavailable Fish, B Vito PARK Unavailable Unavailable Fish, B Vito PARK Unavailable Unavailable Fish, B Vito PARK Unavailable Unavailable Fish, B Vito PARK Unavailable Unavailable Fish, B Vito PARK Unavailable Unavailable Fish, B Vito PARK Unavailable Unavailable Fish, B Vito PARK Unavailable Unavailable Fish, B Vito PARK Unavailable Unavailable Fish, B Vito PARK Unavailable Unavailable Fish, B Vito PARK Unavailable Unavailable Fish, B Vito PARK Unavailable Unavailable Fish, B Vito PARK Unavailable Unavailable Fish, B Vito PARK Unavailable Unavailable Fish, B Vito PARK Unavailable Unavailable REINDL, JOHNNY PARK Unavailable Unavailable REINDL, JOHNNY PARK Unavailable Unavailable REINDL, JOHNNY PARK Unavailable Unavailable REINDL, JOHNNY PARK Unavailable Unavailable REINDL, JOHNNY PARK Unavailable Unavailable REINDL, JOHNNY PARK Unavailable Unavailable REINDL, JOHNNY PARK Unavailable Unavailable REINDL, JOHNNY PARK Unavailable Unavailable REINDL, JOHNNY PARK Unavailable Unavailable REINDL, JOHNNY PARK Unavailable Unavailable REINDL, JOHNNY PARK Unavailable Unavailable REINDL, JOHNNY PARK Unavailable Unavailable REINDL, JOHNNY PARK Unavailable Unavailable REINDL, JOHNNY PARK Unavailable Unavailable REINDL, JOHNNY PARK Unavailable Unavailable REINDL, JOHNNY PARK Unavailable Unavailable REINDL, JOHNNY PARK Unavailable Unavailable REINDL, JOHNNY PARK Unavailable Unavailable REINDL, JOHNNY PARK Unavailable Unavailable REINDL, JOHNNY PARK Unavailable Unavailable REINDL, JOHNNY PARK Unavailable Unavailable REINDL, JOHNNY PARK Unavailable Unavailable REINDL, JOHNNY PARK Unavailable Unavailable REINDL, JOHNNY PARK Unavailable Unavailable REINDL, JOHNNY PARK Unavailable Unavailable REINDL, JOHNNY PARK Unavailable Unavailable REINDL, JOHNNY PARK Unavailable Unavailable REINDL, JOHNNY PARK Unavailable Unavailable REINDL, JOHNNY PARK Unavailable Unavailable REINDL, JOHNNY PARK Unavailable Unavailable REINDL, JOHNNY PARK Unavailable Unavailable REINDL, JOHNNY PARK Unavailable Unavailable REINDL, JOHNNY PARK Unavailable Unavailable REINDL, JOHNNY PARK Unavailable Unavailable REINDL, JOHNNY PARK Unavailable Unavailable REINDL, JOHNNY PARK Unavailable Unavailable REINDL, JOHNNY PARK Unavailable Unavailable REINDL, JOHNNY PARK Unavailable Unavailable REINDL, JOHNNY PARK Unavailable Unavailable REINDL, JOHNNY PARK Unavailable Unavailable REINDL, JOHNNY PARK Unavailable Unavailable REINDL, JOHNNY PARK Unavailable Unavailable REINDL, JOHNNY PARK Unavailable Unavailable REINDL, JOHNNY PARK Unavailable Unavailable Re-disclosure Warning The records that you are about to access may contain information from federally-assisted alcohol or drug abuse programs. If such information is present, then the following federally mandated warning applies: This information has been disclosed to you from records protected by federal confidentiality rules (42 CFR part 2). The federal rules prohibit you from making any further disclosure of this information unless further disclosure is expressly permitted by the written consent of the person to whom it pertains or as otherwise permitted by 42 CFR part 2. A general authorization for the release of medical or other information is NOT sufficient for this purpose. The Federal rules restrict any use of the information to criminally investigate or prosecute any alcohol or drug abuse patient.The records that you are about to access may contain highly sensitive health information, the redisclosure of which is protected by Article 27-F of the [facility] Public Health law. If you continue you may have access to information: Regarding HIV / AIDS; Provided by facilities licensed or operated by the [facility] Office of Mental Health; or Provided by the [facility] Office for People With Developmental Disabilities. If such information is present, then the following [facility] mandated warning applies: This information has been disclosed to you from confidential records which are protected by state law. State law prohibits you from making any further disclosure of this information without the specific written consent of the person to whom it pertains, or as otherwise permitted by law. Any unauthorized further disclosure in violation of state law may result in a fine or halfway sentence or both. A general authorization for the release of medical or other information is NOT sufficient authorization for further disc losure. Allergies and Adverse Reactions Type Description Substance Reaction Status Data Source(s ) Propensity to adverse reactions CODEINE Codeine Acti ve [facility] Family History Family Member Name Family Member Gender Family Member Status Date o f Status Description Data Source(s) Unknown Male Problem [facility] ([facility]) Unknown Male Problem [facility] ([facility] () - age 66 Unknown Unknown Problem [facility] ([facility] Unknown Male Problem [facility] ([facility] ) Encounters Encounter Providers Location Date Indications Data Source(s ) Outpatient 09/17/2020 01:00:00 PM EST [facility] Outpatient Attender: BONIFACIO WEST MD [facility] 10/2020 09:20:00 AM EST [facility] ([facility] Outpatient Attender: JOHNNY Luna/Oseas/Rodri/Rein dl 08/17/2020 01:30:00 PM EST [facility] ([facility] Outpatient [email or web address] 07/16/2020 07:39:37 AM EST [facility] Outpatient Attender: Rivka JOHNSONPARKER-SJP.PARKER 05/2020 12:00:00 AM EST - 07/15/2020 01:59:24 PM EST [facility] Outpatient Attender: JOHNNY Luna/Oseas/Rodri/Rein dl 06/28/2020 12:45:00 PM EST [facility] ([facility] Outpatient Attender: Vito Graham MD Physical Therapy 06/23/2020 0 8:00:00 AM EST [facility] ([facility]) Outpatient Attender: Kathleen munoz 06/16/2020 12:00:00 PM EST [facility] ([facility] Outpatient Attender: BONIFACIO [facility] 11/2019 08:15:00 AM EST [facility] ([facility] Outpatient SJP.[email or web address].SYR 04/08/2020 03:12:17 PM EDT [facility] Outpatient Attender: BONIFACIO [facility] 11/2019 09:30:00 AM EDT [facility] ([facility] Outpatient Attender: Rivka JOHNSONPARKER-SJP.PARKER 11/2019 12:00:00 AM EDT - 01/08/2020 10:57:51 AM EDT [facility] Outpatient SJP.CT-[email or web address].SYR 01/01/2020 11:10:42 AM EDT [facility] Outpatient Attender: BONIFACIO [facility] 09:30:00 AM EDT [facility] ([facility] Outpatient Referrer: Joana GEORGES PA-C 11/13/2019 12:4 4:00 PM EDT [facility] Outpatient Attender: Vito Graham MD Physical Therapy 10/13/2019 0 1:15:00 PM EDT [facility] ([facility]) Outpatient SJP.PARKER-SJP 09/27/2019 05:14:45 PM EST [facility] Outpatient SJP.PARKER-SJP.PARKER 09/25/2019 12:00:00 AM EST [facility] Outpatient Attender: iRvka [place] SJP.PARKER-SJP.PARKER 12:00:00 AM EST [facility] Outpatient Attender: BONIFACIO WEST MD [place] Office 08:30:00 AM EST [facility] ([facility] Immunizations Vaccine Date Status Description Data Source(s) New in 2012. IIV4 06/09/2020 08:24:00 AM EST completed [facility] ([facility] Medications Medication Brand Name Start Date Product Form Dose Route Admi nistrative Instructions Pharmacy Instructions Status Indications Reaction Description Data Source(s) 17.5-3.13-1.6 gram 09/16/2020 12:00:00 AM EST [facility] 354 TAKE PER DOCTOR'S BOWEL PREP INSTRUCTIONS TAKE PER DOCTOR'S BOWEL PREP INSTRUCTIONS SOLD: 09/19/2020 [facility] 250 mg magnesium 09/10/2020 12:00:00 AM EST tablet 100 TAKE ONE TABLET BY MOUTH EVERY DAY TAKE ONE TABLET BY MOUTH EVERY DAY SOLD: 09/14/2020 [facility] BD INSULIN SYRINGE U/F 31G X 5/16" 1 ML [facility] [id number] 07/07/2020 12:00:00 AM EST active USE TO INJECT PERFECTO TUS ONCE DAILY DIRECTED [facility] 1 mL 31 gauge x 5/16 07/07/2020 12:00:00 AM EST syringe 10 0 USE TO INJECT LANTUS ONCE DAILY DIRECTED USE TO INJECT LANTUS ONCE DAILY DIRECTED SOLD: 07/07/2020 [facility] Insulin Syringe-Needle U-100 07/06/2020 12:00:00 AM EST active [facility] ([facility] UNIFINE PENTIPS PLUS 31G X 6 MM [facility] [id number] 06/17/2020 12:00:00 AM EST active USE TO INJECT LANTUS ONCE DAILY DIRECTED [facility] 31 gauge x 1/4" 06/17/2020 12:00:00 AM EST needle 100 USE TO INJECT LANTUS ONCE DAILY DIRECTED USE TO INJECT LANTUS ONCE DAILY DIRECTED SOLD: 06/17/2020 [facility] Sargent 06/16/2020 12:00:00 AM EST comple shola MED[facility] ([facility] Insulin Glargine 100 UNT/ML Injectable S olution [Lantus] LANTUS 100 UNIT/ML injection LANTUS 100 UNIT/ML injection 06/10/2020 12:00:00 AM EST active [facility] Insulin Glargine 100 UNT/ML Injectable Solution [Lantus] Perfecto tus 06/10/2020 12:00:00 AM EST active M EDENT ([facility] glimepiride 2 MG Oral Tablet glimepiride (AMARYL) 2 MG tablet glimepiride (AMARYL) 2 MG tablet 11/07/2019 12:00:00 AM EDT ac tive [facility] 24 HR metoprolol succinate 50 MG Extende d Release Oral Tablet [Toprol] TOPROL XL 50 MG 24 hr tablet TOPROL XL 50 MG 24 hr tablet 10/19/2019 12:00:00 AM EDT aborted [facility] 50 mcg 08/22/2019 12:00:00 AM EST tablet 30 TAKE ONE TABLET BY MOUTH EVERY DAY TAKE ONE TABLET BY MOUTH EVERY DAY SOLD: 08/23/2019 [facility] Levothyroxine Sodium 0.05 MG Oral Tablet Levothyroxine Sodiu m 08/21/2019 12:00:00 AM EST ORAL completed [facility] ([facility] 12 % 12/16/2018 12:00:00 AM EDT cream 280 APPLY TO FEET DAILY APPLY TO FEET DAILY SOLD: 11/17/2019 [facility] Ascorbic Acid 250 MG / Iron Carbonyl 100 MG Oral Tablet Iron-Vitamin C (IRON 100/C) 100-250 MG TABS Iron-Vitamin C (IRON 100/C) 100-250 MG TABS 05/14/2012 12:00:00 AM EDT Oral aborted Take by mouth [facility] Insurance Providers Payer name Policy type / Coverage type Policy ID Covered democrat ID Covered democrat's relationship to gonzalez Policy Gonzalez Plan Information MEDICARE [id number] SP [id number] FOR LIFE [id number] [id number] WELLCARE [id number] SP [id number] WELLCARE [id number] SP [id number] Meme [id number] MEDICARE [id number] Meme [id number] MEDICARE [id number] MEDICARE C [id number] S [id number] [id number] FOR LIFE O [id number] S [id number] FOR LIFE [id number] Medicare Dme Medigap Part B [id number] Self [id number] For Life Commercial [id number] Family Dependent [id number] Medicare Medicare Primary [id number] Self [id number] Medicare Dme Medigap Part B [id number] Self [id number] For Life Commercial [id number] Family Dependent [id number] Medicare Medicare Primary [id number] Self [id number] ANSI-Commercial [id number] ANSI-Medicare Part B [id number] Medicare Dme Medigap Part B [id number] Self [id number] For Life Commercial [id number] Family Dependent [id number] Medicare Medicare Primary [id number] Self [id number] WPS For Life Medigap Part B [id number] Family Depende nt [id number] [place] Medicare Primary [id number] Self [id number] ANSI-Commercial [id number] ANSI-Medicare Part B [id number] ANSI-Medicare Part B [id number] ANSI-Commercial [id number] Medicare Dme Supplies Medigap Part B [id number] Self [id number] [place] [id number] Self [id number] [place] [facility] (TFL) Medigap Part B [id number] Family Dep endent [id number] ANSI-Medicare Part B [id number] ANSI-Commercial [id number] ANSI-Commercial [id number] ANSI-Medicare Part B [id number] Medicare Dme Supplies Medigap Part B [id number] Self [id number] [place] [id number] Self [id number] FOR LIFE [id number] SP [id number] MEDICARE [id number] A Medicare Dme Supplies Medigap Part B [id number] Self [id number] [place] [id number] Self [id number] Medicare Dme Supplies Medigap Part B [id number] Self [id number] [place] Primary [id number] Self [id number] MEDICARE C [id number] S [id number] A Medicare Dme Medigap Part B [id number] Self [id number] For Life Commercial [id number] Family Dependent [id number] Medicare Medicare Primary [id number] Self [id number] Medicare Dme Supplies Medigap Part B [id number] Self [id number] [place] [id number] Self [id number] MEDICARE [id number] SP [id number] [place] Primary [id number] Self [id number] [place] Primary [id number] Self [id number] FOR LIFE [id number] SP [id number] Medicare Dme Medigap Part B [id number] Self 0 [id number] For Life Commercial [id number] Family Dependent [id number] Medicare Medicare Primary [id number] Self [id number] [place] Primary [id number] Self [id number] [place] Primary [id number] Self [id number] Medicare Dme Medigap Part B [id number] Self [id number] For Life Commercial [id number] Family Dependent [id number] Medicare Medicare Primary [id number] Self 09 [id number] Medicare Dme Medigap Part B [id number] Self 0 [id number] For Life Commercial [id number] Family Dependent [id number] Medicare Medicare Primary [id number] Self 09 [id number] [place] Primary [id number] Self [id number] Medicare Dme Medigap Part B [id number] Self [id number] For Life Commercial [id number] Family Dependent [id number] Medicare Medicare Primary [id number] Self 09 [id number] Medicare Dme Medigap Part B [id number] Self [id number] For Life Commercial [id number] Family Dependent [id number] Medicare Medicare Primary [id number] Self 09 [id number] Medicare Dme Medigap Part B [id number] Self [id number] For Life Commercial [id number] Family Dependent [id number] Medicare Medicare Primary [id number] Self 09 [id number] [place] Primary [id number] Self [id number] Medicare Dme Medigap Part B [id number] Self [id number] For Life Commercial [id number] Family Dependent [id number] Medicare Medicare Primary [id number] Self 09 [id number] Medicare Dme Medigap Part B [id number] Self [id number] For Life Commercial [id number] Family Dependent [id number] Medicare Medicare Primary [id number] Self 09 [id number] For Life WPS Medigap Part B [id number] Self [id number] Medicare [place] Gov't Servi Medicare Primary [id number] Self [id number] [place] [facility] ([place] Medigap Part B Family Dep endent Medicare [place] Primary Self SELF PAY UNAVAILABLE SP UNAVAILA BLE [id number] Problems, Conditions, and Diagnoses Code Display Name Description Problem Type Effective Dates Data Source(s) Type 2 diabetes mellitus with diabetic p olyneuropathy Type 2 diabetes mellitus with diabetic polyneuropathy Problem 09/04/2019 12:00:00 AM EST [facility] ([facility] E11.00 Type 2 diabetes mellitus wit h hyperosmolarity, without long-term current use of insulin Type 2 diabetes mellitus with hyperosmol arity, without long-term current use of insulin [id number] 08/20/2019 12:00:00 AM EST [facility] I10 Essential hypertension Essential hypertension [id number] 08/20/2019 12:00:00 AM EST [facility] E78.00 Hypercholesterolemia Hypercholesterolemia [id number] 08/20/2019 12:00:00 AM [facility] E66.01 Obesity, morbid Obesity, morbid [id number] 08/20/2019 12:0 0:00 AM [facility] E11.00 Type 2 diabetes mellitus wit h hyperosmolarity without nonketotic hyperglycemic-hyperosmolar coma (N[facility]) Type 2 diabetes mellitus with hyperosmol Diagnosis 07/15/2020 12:54:47 PM [facility] E78.00 Pure hypercholesterolemia, unspecified P ure hypercholesterolemia, unspecified Diagnosis 07/15/2020 12:54:47 PM [facility] 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 Type 2 diabetes mellitus with diabetic n Diagnosis 07/15/2020 12:54:47 PM [facility] E66.01 Morbid (severe) obesity due to excess ca lories Morbid (severe) obesity due to excess ca Diagnosis 07/15/2020 12:54:47 PM [facility] I50.32 Chronic diastolic (congestive) heart rosalina lure Chronic diastolic (congestive) heart rosalina Diagnosis 07/15/2020 12:54:47 PM [facility] Z95.0 Presence of cardiac pacemaker Presence of cardiac pace maker Diagnosis 07/15/2020 12:54:47 PM [facility] I48.20 Chronic atrial fibrillation, unspecified Chronic atrial fibrillation, unspecified Diagnosis 07/15/2020 12:54:47 PM [facility] Surgeries/Procedures Procedure Description Date Indications Data Source(s) DEBRIDEMENT NAIL ANY METHOD /> 08/16/2020 12:00:00 AM EST [facility] ([facility] BLOOD COUNT COMPLETE AUTO&AUTO DIFRNTL WBC COUNT CBC AND DIFFER ENTIAL Routine 07/08/2020 07/08/2020 12:00:[address] [facility] IRON IRON Routine 07/08/2020 07/08/2020 12:00:00 A M [facility] FERRITIN FERRITIN Routine 07/08/2020 07/08/2020 12:00:0 0 AM [facility] RADEX SPINE LUMBOSACRAL MINIMUM 4 VIEWS 06/23/2020 12: 00:00 AM EST [facility] ([facility]) X-Ray Hip Unilateral With Pelvis 2-3 Views 06/23/2020 12:00:00 AM EST [facility] ([facility]) RADIOLOGIC EXAMINATION KNEE 1/2 VIEWS 06/23/2020 12:00 :00 AM EST [facility] ([facility]) DEBRIDEMENT NAIL ANY METHOD 06/07/2020 12:00:00 AM EST [facility] ([facility] X-Ray Femur Minimum 2 Views 04/02/2020 12:00:00 AM EDT [facility] ([facility]) DEBRIDEMENT NAIL ANY METHOD 03/29/2020 12:00:00 AM EDT [facility] ([facility] DEBRIDEMENT NAIL ANY METHOD 01/19/2020 12:00:00 AM EDT [facility] ([facility] RADIOLOGIC EXAMINATION KNEE 3 VIEWS 10/13/2019 12:00:0 0 AM EDT [facility] ([facility] DEBRIDEMENT NAIL ANY METHOD 08/21/2019 12:00:00 AM EST [facility] ([facility] Results ID Date Data Source [id number] 09/17/2020 01:26:00 PM EST [facility] MDR 5000 [facility] OFFICE EX AM: MR Lumbar spine without contrast INDICATION: Sciatica, left side TECHNIQUE: Multisequence axial and sagittal MRI images of the lumbar spine were obtained without intravenous contrast. COMPARISON: None of this type. FINDINGS: There is 2 mm anterolisthesis of L4 with respect L5. Lumbar spine alignment is otherwise maintained. Vertebral body heights are preserved. Mild disc space narrowing and mild active degenerative endplate changes are present at L4-L5. A hemangioma is noted in the S1 segment. Bone marrow signal is otherwise within normal limits. The conus medullaris is normal in morphology and signal intensity, terminating at the L1- L2 level. The cauda equina demonstrates normal morphology as well. T12-L1, L1- L2, L2-L3 and L3-L4: There is no significant spinal canal or neural foraminal narrowing. L4-L5: There is a mild diffuse disc bulge and facet degenerative changes resulting in mild narrowing of the spinal canal with mild narrowing of the right lateral recess. There is mild to moderate right and mild left foraminal narrowing. L5-S1: There is a mild diffuse disc bulge, slightly eccentric to the left and facet degenerative changes without significant narrowing of the spinal canal. Moderate left and moderate right foraminal narrowing are present. Zueul-cd-hxwszitx amount of pelvic free fluid is present. Sigmoid diverticulosis is noted. IMPRESSION: Lower lumbar spine degenerative changes, most notable at L4-L5 where there is moderate narrowing of the spinal canal and moderate right foraminal narrowing. There is moderate left foraminal n arrowing at L5-S1. Mwsqw-eu-oetejtzj amount of pelvic free fluid. Sigmoid diverticulosis. X1 Name Value Range Interpretation Code Description Data Olimpia rce(s) Supporting Document(s) ID Date Data Source [id number] 09/17/2020 09:40:00 AM EST [facility] Name Value Range Interpretation Code Description Data Olimpia rce(s) Supporting Document(s) SARS coronavirus 2 RNA Not Detected [facility] This lab was ordered by [facility] and reported by [facility]. ID Date Data Source [id number] 09/08/2020 10:39:00 AM EST [facility] ([facility] Name Value Range Interpretation Code Description Data Olimpia rce(s) Supporting Document(s) Hemoglobin A1c/Hemoglobin.total in Blood 8.5 % 4.50-6.20 Above high normal [facility] ([facility] ID Date Data Source [id number] 09/08/2020 10:39:00 AM EST [facility] ([facility] Name Value Range Interpretation Code Description Data Olimpia rce(s) Supporting Document(s) Urate [Mass/volume] in Serum or Plasma 4.0 mg/dL 2.4-5.7 [facility] ([facility] NORMAL RANGES Age WBC RBC HGB HCT [...] HCT IS 5% LESS SOURCE FOR DATA: LegUP 1800 OPERATION MANUAL( AUTOMATED BLOOD COUNTS AND [...] DESIRABLE: <130 MG/DL <110 MG/DL BORDERLINE-HIGH RISK: 130- 159 MG/DL 110-129 MG/DL HIGH RISK: >160 MG/DL >130 MG/DL *CHILDREN AND ADOLESCENTS REPRESENTS INDIVIDUALA AGED 2-19 YEARS EXCLUSIVE. ID Date Data Source [id number] 09/08/2020 10:39:00 AM EST [facility] ([facility] Name Value Range Interpretation Code Description Data Olimpia rce(s) Supporting Document(s) WBC 5.2 10E3/uL 4.1-10.9 [facility] ([facility] NORMAL RANGES Age WBC RBC HGB HCT [...] HCT IS 5% LESS SOURCE FOR DATA: LegUP 1800 OPERATION MANUAL( AUTOMATED BLOOD COUNTS AND [...] DESIRABLE: <130 MG/DL <110 MG/DL BORDERLINE-HIGH RISK: 130- 159 MG/DL 110-129 MG/DL HIGH RISK: >160 MG/DL >130 MG/DL *CHILDREN AND ADOLESCENTS REPRESENTS INDIVIDUALA AGED 2-19 YEARS EXCLUSIVE. RBC 3.24 10E6/uL 4.20-6.30 Below low normal [facility] ([facility] NORMAL RANGES Age WBC RBC HGB HCT [...] HCT IS 5% LESS SOURCE FOR DATA: LegUP 1800 OPERATION MANUAL( AUTOMATED BLOOD COUNTS AND [...] DESIRABLE: <130 MG/DL <110 MG/DL BORDERLINE-HIGH RISK: 130- 159 MG/DL 110-129 MG/DL HIGH RISK: >160 MG/DL >130 MG/DL *CHILDREN AND ADOLESCENTS REPRESENTS INDIVIDUALA AGED 2-19 YEARS EXCLUSIVE. HGB 10.6 g/dL 12.0-18.0 Below low normal [facility] ( [facility] NORMAL RANGES Age WBC RBC HGB HCT [...] HCT IS 5% LESS SOURCE FOR DATA: LegUP 1800 OPERATION MANUAL( AUTOMATED BLOOD COUNTS AND [...] DESIRABLE: <130 MG/DL <110 MG/DL BORDERLINE-HIGH RISK: 130- 159 MG/DL 110-129 MG/DL HIGH RISK: >160 MG/DL >130 MG/DL *CHILDREN AND ADOLESCENTS REPRESENTS INDIVIDUALA AGED 2-19 YEARS EXCLUSIVE. HCT 33.0 % 37.0-51.0 Below low normal [facility] ( [facility] NORMAL RANGES Age WBC RBC HGB HCT [...] HCT IS 5% LESS SOURCE FOR DATA: TOMMY DYN 1800 OPERATION MANUAL( AUTOMATED BLOOD COUNTS AND [...] DESIRABLE: <130 MG/DL <110 MG/DL BORDERLINE-HIGH RISK: 130- 159 MG/DL 110-129 MG/DL HIGH RISK: >160 MG/DL >130 MG/DL *CHILDREN AND ADOLESCENTS REPRESENTS INDIVIDUALA AGED 2-19 YEARS EXCLUSIVE. MCV 101.9 fL 80.0-97.0 Above high normal [facility] ([facility] NORMAL RANGES Age WBC RBC HGB HCT [...] HCT IS 5% LESS SOURCE FOR DATA: LegUP 1800 OPERATION MANUAL( AUTOMATED BLOOD COUNTS AND [...] DESIRABLE: <130 MG/DL <110 MG/DL BORDERLINE-HIGH RISK: 130- 159 MG/DL 110-129 MG/DL HIGH RISK: >160 MG/DL >130 MG/DL *CHILDREN AND ADOLESCENTS REPRESENTS INDIVIDUALA AGED 2-19 YEARS EXCLUSIVE. MCHC 32.1 g/dL 31.0-36.0 [facility] ([facility] NORMAL RANGES Age WBC RBC HGB HCT [...] HCT IS 5% LESS SOURCE FOR DATA: LegUP 1800 OPERATION MANUAL( AUTOMATED BLOOD COUNTS AND [...] DESIRABLE: <130 MG/DL <110 MG/DL BORDERLINE-HIGH RISK: 130- 159 MG/DL 110-129 MG/DL HIGH RISK: >160 MG/DL >130 MG/DL *CHILDREN AND ADOLESCENTS REPRESENTS INDIVIDUALA AGED 2-19 YEARS EXCLUSIVE. MCH 32.7 pg 26.0-32.0 Above high normal [facility] ([facility] NORMAL RANGES Age WBC RBC HGB HCT [...] HCT IS 5% LESS SOURCE FOR DATA: [employer] DYN 1800 OPERATION MANUAL( AUTOMATED BLOOD COUNTS AND [...] DESIRABLE: <130 MG/DL <110 MG/DL BORDERLINE-HIGH RISK: 130- 159 MG/DL 110-129 MG/DL HIGH RISK: >160 MG/DL >130 MG/DL *CHILDREN AND ADOLESCENTS REPRESENTS INDIVIDUALA AGED 2-19 YEARS EXCLUSIVE. PLT 244 10E3/uL 140-440 [facility] ([facility] NORMAL RANGES Age WBC RBC HGB HCT [...] HCT IS 5% LESS SOURCE FOR DATA: LegUP 1800 OPERATION MANUAL( AUTOMATED BLOOD COUNTS AND [...] DESIRABLE: <130 MG/DL <110 MG/DL BORDERLINE-HIGH RISK: 130- 159 MG/DL 110-129 MG/DL HIGH RISK: >160 MG/DL >130 MG/DL *CHILDREN AND ADOLESCENTS REPRESENTS INDIVIDUALA AGED 2-19 YEARS EXCLUSIVE. RDW-CV 15.1 % 11.5-14.5 Above high normal [facility] ([facility] NORMAL RANGES Age WBC RBC HGB HCT [...] HCT IS 5% LESS SOURCE FOR DATA: LegUP 1800 OPERATION MANUAL( AUTOMATED BLOOD COUNTS AND [...] DESIRABLE: <130 MG/DL <110 MG/DL BORDERLINE-HIGH RISK: 130- 159 MG/DL 110-129 MG/DL HIGH RISK: >160 MG/DL >130 MG/DL *CHILDREN AND ADOLESCENTS REPRESENTS INDIVIDUALA AGED 2-19 YEARS EXCLUSIVE. Lym% 17.1 % 10.0-58.[address] [facility] ([facility] NORMAL RANGES Age WBC RBC HGB HCT [...] HCT IS 5% LESS SOURCE FOR DATA: LegUP 1800 OPERATION MANUAL( AUTOMATED BLOOD COUNTS AND [...] DESIRABLE: <130 MG/DL <110 MG/DL BORDERLINE-HIGH RISK: 130- 159 MG/DL 110-129 MG/DL HIGH RISK: >160 MG/DL >130 MG/DL *CHILDREN AND ADOLESCENTS REPRESENTS INDIVIDUALA AGED 2-19 YEARS EXCLUSIVE. Neut% 74.0 % 37.0-92.0 [facility] ([facility] NORMAL RANGES Age WBC RBC HGB HCT [...] HCT IS 5% LESS SOURCE FOR DATA: LegUP 1800 OPERATION MANUAL( AUTOMATED BLOOD COUNTS AND [...] DESIRABLE: <130 MG/DL <110 MG/DL BORDERLINE-HIGH RISK: 130- 159 MG/DL 110-129 MG/DL HIGH RISK: >160 MG/DL >130 MG/DL *CHILDREN AND ADOLESCENTS REPRESENTS INDIVIDUALA AGED 2-19 YEARS EXCLUSIVE. MXD% 8.9 % 0.1-24.[address] [facility] ([facility] NORMAL RANGES Age WBC RBC HGB HCT [...] HCT IS 5% LESS SOURCE FOR DATA: LegUP 1800 OPERATION MANUAL( AUTOMATED BLOOD COUNTS AND [...] DESIRABLE: <130 MG/DL <110 MG/DL BORDERLINE-HIGH RISK: 130- 159 MG/DL 110-129 MG/DL HIGH RISK: >160 MG/DL >130 MG/DL *CHILDREN AND ADOLESCENTS REPRESENTS INDIVIDUALA AGED 2-19 YEARS EXCLUSIVE. Lym# 0.9 10E3/uL 0.6-4.1 [facility] ([facility] NORMAL RANGES Age WBC RBC HGB HCT [...] HCT IS 5% LESS SOURCE FOR DATA: LegUP 1800 OPERATION MANUAL( AUTOMATED BLOOD COUNTS AND [...] DESIRABLE: <130 MG/DL <110 MG/DL BORDERLINE-HIGH RISK: 130- 159 MG/DL 110-129 MG/DL HIGH RISK: >160 MG/DL >130 MG/DL *CHILDREN AND ADOLESCENTS REPRESENTS INDIVIDUALA AGED 2-19 YEARS EXCLUSIVE. Neut# 3.8 % 2.0-7.8 [facility] ([facility] NORMAL RANGES Age WBC RBC HGB HCT [...] HCT IS 5% LESS SOURCE FOR DATA: LegUP 1800 OPERATION MANUAL( AUTOMATED BLOOD COUNTS AND [...] DESIRABLE: <130 MG/DL <110 MG/DL BORDERLINE-HIGH RISK: 130- 159 MG/DL 110-129 MG/DL HIGH RISK: >160 MG/DL >130 MG/DL *CHILDREN AND ADOLESCENTS REPRESENTS INDIVIDUALA AGED 2-19 YEARS EXCLUSIVE. MXD# 0.5 10E3/uL 0.0-1.8 [facility] ([facility] NORMAL RANGES Age WBC RBC HGB HCT [...] HCT IS 5% LESS SOURCE FOR DATA: LegUP 1800 OPERATION MANUAL( AUTOMATED BLOOD COUNTS AND [...] DESIRABLE: <130 MG/DL <110 MG/DL BORDERLINE-HIGH RISK: 130- 159 MG/DL 110-129 MG/DL HIGH RISK: >160 MG/DL >130 MG/DL *CHILDREN AND ADOLESCENTS REPRESENTS INDIVIDUALA AGED 2-19 YEARS EXCLUSIVE. MPV 9.8 fL 9.0-13.[address] [facility] ([facility] NORMAL RANGES Age WBC RBC HGB HCT [...] HCT IS 5% LESS SOURCE FOR DATA: LegUP 1800 OPERATION MANUAL( AUTOMATED BLOOD COUNTS AND [...] DESIRABLE: <130 MG/DL <110 MG/DL BORDERLINE-HIGH RISK: 130- 159 MG/DL 110-129 MG/DL HIGH RISK: >160 MG/DL >130 MG/DL *CHILDREN AND ADOLESCENTS REPRESENTS INDIVIDUALA AGED 2-19 YEARS EXCLUSIVE. ID Date Data Source [id number] 09/08/2020 10:39:00 AM EST [facility] ([facility] Name Value Range Interpretation Code Description Data Olimpia rce(s) Supporting Document(s) Chol 176 mg/dL 0-200 [facility] ([facility] NORMAL RANGES Age WBC RBC HGB HCT [...] HCT IS 5% LESS SOURCE FOR DATA: LegUP 1800 OPERATION MANUAL( AUTOMATED BLOOD COUNTS AND [...] DESIRABLE: <130 MG/DL <110 MG/DL BORDERLINE-HIGH RISK: 130- 159 MG/DL 110-129 MG/DL HIGH RISK: >160 MG/DL >130 MG/DL *CHILDREN AND ADOLESCENTS REPRESENTS INDIVIDUALA AGED 2-19 YEARS EXCLUSIVE. Trig 256 mg/dL 40-200 Above high normal [facility] ([facility] NORMAL RANGES Age WBC RBC HGB HCT [...] HCT IS 5% LESS SOURCE FOR DATA: TOMMY DYN 1800 OPERATION MANUAL( AUTOMATED BLOOD COUNTS AND [...] DESIRABLE: <130 MG/DL <110 MG/DL BORDERLINE-HIGH RISK: 130- 159 MG/DL 110-129 MG/DL HIGH RISK: >160 MG/DL >130 MG/DL *CHILDREN AND ADOLESCENTS REPRESENTS INDIVIDUALA AGED 2-19 YEARS EXCLUSIVE. Cholesterol in HDL [Mass/volume] in Serum or Plasma 32 mg/dL 45-65 Below low normal [facility] ([facility] NORMAL RANGES Age WBC RBC HGB HCT [...] HCT IS 5% LESS SOURCE FOR DATA: LegUP 1800 OPERATION MANUAL( AUTOMATED BLOOD COUNTS AND [...] DESIRABLE: <130 MG/DL <110 MG/DL BORDERLINE-HIGH RISK: 130- 159 MG/DL 110-129 MG/DL HIGH RISK: >160 MG/DL >130 MG/DL *CHILDREN AND ADOLESCENTS REPRESENTS INDIVIDUALA AGED 2-19 YEARS EXCLUSIVE. LDL_C 93 Calc 75-129 [facility] ([facility] NORMAL RANGES Age WBC RBC HGB HCT [...] HCT IS 5% LESS SOURCE FOR DATA: [employer] DYN 1800 OPERATION MANUAL( AUTOMATED BLOOD COUNTS AND [...] DESIRABLE: <130 MG/DL <110 MG/DL BORDERLINE-HIGH RISK: 130- 159 MG/DL 110-129 MG/DL HIGH RISK: >160 MG/DL >130 MG/DL *CHILDREN AND ADOLESCENTS REPRESENTS INDIVIDUALA AGED 2-19 YEARS EXCLUSIVE. Cho/HDL Ratio 5.5 CALC [employer] ([facility] NORMAL RANGES Age WBC RBC HGB HCT [...] HCT IS 5% LESS SOURCE FOR DATA: LegUP 1800 OPERATION MANUAL( AUTOMATED BLOOD COUNTS AND [...] DESIRABLE: <130 MG/DL <110 MG/DL BORDERLINE-HIGH RISK: 130- 159 MG/DL 110-129 MG/DL HIGH RISK: >160 MG/DL >130 MG/DL *CHILDREN AND ADOLESCENTS REPRESENTS INDIVIDUALA AGED 2-19 YEARS EXCLUSIVE. ID Date Data Source [id number] 09/08/2020 10:39:00 AM EST [facility] ([facility] Name Value Range Interpretation Code Description Data Olimpia rce(s) Supporting Document(s) Glu 179 mg/dL 70-110 Above high normal [facility] ([facility] NORMAL RANGES Age WBC RBC HGB HCT [...] HCT IS 5% LESS SOURCE FOR DATA: LegUP 1800 OPERATION MANUAL( AUTOMATED BLOOD COUNTS AND [...] DESIRABLE: <130 MG/DL <110 MG/DL BORDERLINE-HIGH RISK: 130- 159 MG/DL 110-129 MG/DL HIGH RISK: >160 MG/DL >130 MG/DL *CHILDREN AND ADOLESCENTS REPRESENTS INDIVIDUALA AGED 2-19 YEARS EXCLUSIVE. BUN 62 mg/dL 8-23 Above high normal [facility] ([facility] NORMAL RANGES Age WBC RBC HGB HCT [...] HCT IS 5% LESS SOURCE FOR DATA: LegUP 1800 OPERATION MANUAL( AUTOMATED BLOOD COUNTS AND [...] DESIRABLE: <130 MG/DL <110 MG/DL BORDERLINE-HIGH RISK: 130- 159 MG/DL 110-129 MG/DL HIGH RISK: >160 MG/DL >130 MG/DL *CHILDREN AND ADOLESCENTS REPRESENTS INDIVIDUALA AGED 2-19 YEARS EXCLUSIVE. Creat 2.0 mg/dL 0.5-1.0 Above high normal [facility] ([facility] NORMAL RANGES Age WBC RBC HGB HCT [...] HCT IS 5% LESS SOURCE FOR DATA: LegUP 1800 OPERATION MANUAL( AUTOMATED BLOOD COUNTS AND [...] DESIRABLE: <130 MG/DL <110 MG/DL BORDERLINE-HIGH RISK: 130- 159 MG/DL 110-129 MG/DL HIGH RISK: >160 MG/DL >130 MG/DL *CHILDREN AND ADOLESCENTS REPRESENTS INDIVIDUALA AGED 2-19 YEARS EXCLUSIVE. BUN/Creatinine Ratio 30.5 CALC [facility] ([facility] NORMAL RANGES Age WBC RBC HGB HCT [...] HCT IS 5% LESS SOURCE FOR DATA: LegUP 1800 OPERATION MANUAL( AUTOMATED BLOOD COUNTS AND [...] DESIRABLE: <130 MG/DL <110 MG/DL BORDERLINE-HIGH RISK: 130- 159 MG/DL 110-129 MG/DL HIGH RISK: >160 MG/DL >130 MG/DL *CHILDREN AND ADOLESCENTS REPRESENTS INDIVIDUALA AGED 2-19 YEARS EXCLUSIVE. Na 134 mmol/L 136-145 Below low normal [facility] ( [facility] NORMAL RANGES Age WBC RBC HGB HCT [...] HCT IS 5% LESS SOURCE FOR DATA: LegUP 1800 OPERATION MANUAL( AUTOMATED BLOOD COUNTS AND [...] DESIRABLE: <130 MG/DL <110 MG/DL BORDERLINE-HIGH RISK: 130- 159 MG/DL 110-129 MG/DL HIGH RISK: >160 MG/DL >130 MG/DL *CHILDREN AND ADOLESCENTS REPRESENTS INDIVIDUALA AGED 2-19 YEARS EXCLUSIVE. CL 96.9 mmol/L 98.0-107.0 Below low normal [facility] ([facility] NORMAL RANGES Age WBC RBC HGB HCT [...] HCT IS 5% LESS SOURCE FOR DATA: LegUP 1800 OPERATION MANUAL( AUTOMATED BLOOD COUNTS AND [...] DESIRABLE: <130 MG/DL <110 MG/DL BORDERLINE-HIGH RISK: 130- 159 MG/DL 110-129 MG/DL HIGH RISK: >160 MG/DL >130 MG/DL *CHILDREN AND ADOLESCENTS REPRESENTS INDIVIDUALA AGED 2-19 YEARS EXCLUSIVE. K 4.6 mmol/L 3.5-5.1 [facility] ([facility] NORMAL RANGES Age WBC RBC HGB HCT [...] HCT IS 5% LESS SOURCE FOR DATA: LegUP 1800 OPERATION MANUAL( AUTOMATED BLOOD COUNTS AND [...] DESIRABLE: <130 MG/DL <110 MG/DL BORDERLINE-HIGH RISK: 130- 159 MG/DL 110-129 MG/DL HIGH RISK: >160 MG/DL >130 MG/DL *CHILDREN AND ADOLESCENTS REPRESENTS INDIVIDUALA AGED 2-19 YEARS EXCLUSIVE. Co2 24.4 mmol/L 22.0-29.[address] [facility] NORMAL RANGES Age WBC RBC HGB HCT [...] HCT IS 5% LESS SOURCE FOR DATA: LegUP 1800 OPERATION MANUAL( AUTOMATED BLOOD COUNTS AND [...] DESIRABLE: <130 MG/DL <110 MG/DL BORDERLINE-HIGH RISK: 130- 159 MG/DL 110-129 MG/DL HIGH RISK: >160 MG/DL >130 MG/DL *CHILDREN AND ADOLESCENTS REPRESENTS INDIVIDUALA AGED 2-19 YEARS EXCLUSIVE. TP 6.9 g/dL 6.6-8.7 [facility] ([facility] NORMAL RANGES Age WBC RBC HGB HCT [...] HCT IS 5% LESS SOURCE FOR DATA: LegUP 1800 OPERATION MANUAL( AUTOMATED BLOOD COUNTS AND [...] DESIRABLE: <130 MG/DL <110 MG/DL BORDERLINE-HIGH RISK: 130- 159 MG/DL 110-129 MG/DL HIGH RISK: >160 MG/DL >130 MG/DL *CHILDREN AND ADOLESCENTS REPRESENTS INDIVIDUALA AGED 2-19 YEARS EXCLUSIVE. CA 9.5 mg/dL 8.6-10.2 [facility] ([facility] NORMAL RANGES Age WBC RBC HGB HCT [...] HCT IS 5% LESS SOURCE FOR DATA: LegUP 1800 OPERATION MANUAL( AUTOMATED BLOOD COUNTS AND [...] DESIRABLE: <130 MG/DL <110 MG/DL BORDERLINE-HIGH RISK: 130- 159 MG/DL 110-129 MG/DL HIGH RISK: >160 MG/DL >130 MG/DL *CHILDREN AND ADOLESCENTS REPRESENTS INDIVIDUALA AGED 2-19 YEARS EXCLUSIVE. Alb 4.4 g/dL 3.4-4.8 [facility] ([facility] NORMAL RANGES Age WBC RBC HGB HCT [...] HCT IS 5% LESS SOURCE FOR DATA: [employer] DYN 1800 OPERATION MANUAL( AUTOMATED BLOOD COUNTS AND [...] DESIRABLE: <130 MG/DL <110 MG/DL BORDERLINE-HIGH RISK: 130- 159 MG/DL 110-129 MG/DL HIGH RISK: >160 MG/DL >130 MG/DL *CHILDREN AND ADOLESCENTS REPRESENTS INDIVIDUALA AGED 2-19 YEARS EXCLUSIVE. Globulin 2.6 CALC [facility] ([facility] NORMAL RANGES Age WBC RBC HGB HCT [...] HCT IS 5% LESS SOURCE FOR DATA: LegUP 1800 OPERATION MANUAL( AUTOMATED BLOOD COUNTS AND [...] DESIRABLE: <130 MG/DL <110 MG/DL BORDERLINE-HIGH RISK: 130- 159 MG/DL 110-129 MG/DL HIGH RISK: >160 MG/DL >130 MG/DL *CHILDREN AND ADOLESCENTS REPRESENTS INDIVIDUALA AGED 2-19 YEARS EXCLUSIVE. A/G Ratio 1.7 CALC [facility] ([facility] NORMAL RANGES Age WBC RBC HGB HCT [...] HCT IS 5% LESS SOURCE FOR DATA: Leg[employer] 1800 OPERATION MANUAL( AUTOMATED BLOOD COUNTS AND [...] DESIRABLE: <130 MG/DL <110 MG/DL BORDERLINE-HIGH RISK: 130- 159 MG/DL 110-129 MG/DL HIGH RISK: >160 MG/DL >130 MG/DL *CHILDREN AND ADOLESCENTS REPRESENTS INDIVIDUALA AGED 2-19 YEARS EXCLUSIVE. Alp 249.2 U/L 35-129 Above high normal [facility] ([facility] NORMAL RANGES Age WBC RBC HGB HCT [...] HCT IS 5% LESS SOURCE FOR DATA: [employer] DYN 1800 OPERATION MANUAL( AUTOMATED BLOOD COUNTS AND [...] DESIRABLE: <130 MG/DL <110 MG/DL BORDERLINE-HIGH RISK: 130- 159 MG/DL 110-129 MG/DL HIGH RISK: >160 MG/DL >130 MG/DL *CHILDREN AND ADOLESCENTS REPRESENTS INDIVIDUALA AGED 2-19 YEARS EXCLUSIVE. Alt (SGPT) 11 U/L 0-41 [facility] ([facility] NORMAL RANGES Age WBC RBC HGB HCT [...] HCT IS 5% LESS SOURCE FOR DATA: Leg[employer] 1800 OPERATION MANUAL( AUTOMATED BLOOD COUNTS AND [...] DESIRABLE: <130 MG/DL <110 MG/DL BORDERLINE-HIGH RISK: 130- 159 MG/DL 110-129 MG/DL HIGH RISK: >160 MG/DL >130 MG/DL *CHILDREN AND ADOLESCENTS REPRESENTS INDIVIDUALA AGED 2-19 YEARS EXCLUSIVE. Ast (Sgot) 17 U/L 0-40 [facility] ([facility] NORMAL RANGES Age WBC RBC HGB HCT [...] HCT IS 5% LESS SOURCE FOR DATA: Leg[employer] 1800 OPERATION MANUAL( AUTOMATED BLOOD COUNTS AND [...] DESIRABLE: <130 MG/DL <110 MG/DL BORDERLINE-HIGH RISK: 130- 159 MG/DL 110-129 MG/DL HIGH RISK: >160 MG/DL >130 MG/DL *CHILDREN AND ADOLESCENTS REPRESENTS INDIVIDUALA AGED 2-19 YEARS EXCLUSIVE. Tbili 0.64 mg/dL 0.0-1.2 [facility] ([facility] NORMAL RANGES Age WBC RBC HGB HCT [...] HCT IS 5% LESS SOURCE FOR DATA: Leg[employer] 1800 OPERATION MANUAL( AUTOMATED BLOOD COUNTS AND [...] DESIRABLE: <130 MG/DL <110 MG/DL BORDERLINE-HIGH RISK: 130- 159 MG/DL 110-129 MG/DL HIGH RISK: >160 MG/DL >130 MG/DL *CHILDREN AND ADOLESCENTS REPRESENTS INDIVIDUALA AGED 2-19 YEARS EXCLUSIVE. Anion Gap 17 mmol/L [facility] ([facility] NORMAL RANGES Age WBC RBC HGB HCT [...] HCT IS 5% LESS SOURCE FOR DATA: LegUP 1800 OPERATION MANUAL( AUTOMATED BLOOD COUNTS AND [...] DESIRABLE: <130 MG/DL <110 MG/DL BORDERLINE-HIGH RISK: 130- 159 MG/DL 110-129 MG/DL HIGH RISK: >160 MG/DL >130 MG/DL *CHILDREN AND ADOLESCENTS REPRESENTS INDIVIDUALA AGED 2-19 YEARS EXCLUSIVE. Osmolality-Calculated 290.6 [facility] ([facility] NORMAL RANGES Age WBC RBC HGB HCT [...] HCT IS 5% LESS SOURCE FOR DATA: LegUP 1800 OPERATION MANUAL( AUTOMATED BLOOD COUNTS AND [...] DESIRABLE: <130 MG/DL <110 MG/DL BORDERLINE-HIGH RISK: 130- 159 MG/DL 110-129 MG/DL HIGH RISK: >160 MG/DL >130 MG/DL *CHILDREN AND ADOLESCENTS REPRESENTS INDIVIDUALA AGED 2-19 YEARS EXCLUSIVE. eGFR 26 # [facility] ( [facility] NORMAL RANGES Age WBC RBC HGB HCT [...] HCT IS 5% LESS SOURCE FOR DATA: [employer] DYN 1800 OPERATION MANUAL( AUTOMATED BLOOD COUNTS AND [...] DESIRABLE: <130 MG/DL <110 MG/DL BORDERLINE-HIGH RISK: 130- 159 MG/DL 110-129 MG/DL HIGH RISK: >160 MG/DL >130 MG/DL *CHILDREN AND ADOLESCENTS REPRESENTS INDIVIDUALA AGED 2-19 YEARS EXCLUSIVE. eGFR Non-Afr. Lithuanian 23 # [facility] ([facility] NORMAL RANGES Age WBC RBC HGB HCT [...] HCT IS 5% LESS SOURCE FOR DATA: [employer] 1800 OPERATION MANUAL( AUTOMATED BLOOD COUNTS AND [...] DESIRABLE: <130 MG/DL <110 MG/DL BORDERLINE-HIGH RISK: 130- 159 MG/DL 110-129 MG/DL HIGH RISK: >160 MG/DL >130 MG/DL *CHILDREN AND ADOLESCENTS REPRESENTS INDIVIDUALA AGED 2-19 YEARS EXCLUSIVE. ID Date Data Source [id number] 09/08/2020 10:38:00 AM EST [facility] ([facility] Name Value Range Interpretation Code Description Data Olimpia rce(s) Supporting Document(s) Thyrotropin [Units/volume] in Serum or Plasma 5.282 ulU/mL 0. 60-4.8 Above high normal [facility] ([facility] ) ID Date Data Source [id number] 07/08/2020 10:35:00 AM EST [facility] ([facility]) Name Value Range Interpretation Code Description Data Olimpia rce(s) Supporting Document(s) Tissue transglutaminase IgA Ab [Units/volume] in Serum Labor atory test result 0-3 Normal (applies to non-numeric results) [facility] ([facility]) Negative 0 - 3 Weak Positive 4 - 10 Positive >10 . Tissue Transglutaminase (tTG) has been identified as the endomysial antigen. Studies have demonstr- ated that endomysial IgA antibodies have over 99% specificity for gluten sensitive enteropathy. Performed at: RN - [facility] [address] [id number] Database Security Expert: Nolvia Brown MD, Phone: [phone] IgA [Mass/volume] in Serum or Plasma 150.0 mg/dL 70-400 Normal (applies to non- numeric results) [facility] ([facility]) ID Date Data Source [id number] 06/09/2020 09:35:00 AM EST MED[facility] ([facility] Name Value Range Interpretation Code Description Data Olimpia rce(s) Supporting Document(s) Thyrotropin [Units/volume] in Serum or Plasma 4.233 ulU/mL 0.60-4.8 [facility] ([facility] ID Date Data Source [id number] 06/09/2020 09:33:00 AM EST [facility] ([facility] Name Value Range Interpretation Code Description Data Olimpia rce(s) Supporting Document(s) Hemoglobin A1c/Hemoglobin.total in Blood 9.6 % 4.50-6.20 Above high normal [facility] ([facility] ID Date Data Source [id number] 06/09/2020 09:33:00 AM EST [facility] ([facility]) Name Value Range Interpretation Code Description Data Olimpia rce(s) Supporting Document(s) Chol 165 mg/dL 0-200 [facility] ([facility] mary jane Shelton [facility]) NORMAL RANGES Age WBC RBC HGB HCT [...] HCT IS 5% LESS SOURCE FOR DATA: [employer] 1800 OPERATION MANUAL( AUTOMATED BLOOD COUNTS AND [...] DESIRABLE: <130 MG/DL <110 MG/DL BORDERLINE-HIGH RISK: 130- 159 MG/DL 110-129 MG/DL HIGH RISK: >160 MG/DL >130 MG/DL *CHILDREN AND ADOLESCENTS REPRESENTS INDIVIDUALA AGED 2-19 YEARS EXCLUSIVE. Trig 239 mg/dL 40-200 Above high normal [facility] ([facility] NORMAL RANGES Age WBC RBC HGB HCT [...] HCT IS 5% LESS SOURCE FOR DATA: [employer] 1800 OPERATION MANUAL( AUTOMATED BLOOD COUNTS AND [...] DESIRABLE: <130 MG/DL <110 MG/DL BORDERLINE-HIGH RISK: 130- 159 MG/DL 110-129 MG/DL HIGH RISK: >160 MG/DL >130 MG/DL *CHILDREN AND ADOLESCENTS REPRESENTS INDIVIDUALA AGED 2-19 YEARS EXCLUSIVE. Cholesterol in HDL [Mass/volume] in Serum or Plasma 29 mg/dL 45-65 Below low normal [facility] ([facility] ) NORMAL RANGES Age WBC RBC HGB HCT [...] HCT IS 5% LESS SOURCE FOR DATA: [employer] 1800 OPERATION MANUAL( AUTOMATED BLOOD COUNTS AND [...] DESIRABLE: <130 MG/DL <110 MG/DL BORDERLINE-HIGH RISK: 130- 159 MG/DL 110-129 MG/DL HIGH RISK: >160 MG/DL >130 MG/DL *CHILDREN AND ADOLESCENTS REPRESENTS INDIVIDUALA AGED 2-19 YEARS EXCLUSIVE. LDL_C 88 Calc 75-[address] [facility] ([facility] NORMAL RANGES Age WBC RBC HGB HCT [...] HCT IS 5% LESS SOURCE FOR DATA: [employer] DYN 1800 OPERATION MANUAL( AUTOMATED BLOOD COUNTS AND [...] DESIRABLE: <130 MG/DL <110 MG/DL BORDERLINE-HIGH RISK: 130- 159 MG/DL 110-129 MG/DL HIGH RISK: >160 MG/DL >130 MG/DL *CHILDREN AND ADOLESCENTS REPRESENTS INDIVIDUALA AGED 2-19 YEARS EXCLUSIVE. Cho/HDL Ratio 5.7 [facility]C [facility] NORMAL RANGES Age WBC RBC HGB HCT [...] HCT IS 5% LESS SOURCE FOR DATA: [employer] 1800 OPERATION MANUAL( AUTOMATED BLOOD COUNTS AND [...] DESIRABLE: <130 MG/DL <110 MG/DL BORDERLINE-HIGH RISK: 130- 159 MG/DL 110-129 MG/DL HIGH RISK: >160 MG/DL >130 MG/DL *CHILDREN AND ADOLESCENTS REPRESENTS INDIVIDUALA AGED 2-19 YEARS EXCLUSIVE. ID Date Data Source [id number] 06/09/2020 09:33:00 AM EST [facility] ([facility] Name Value Range Interpretation Code Description Data Olimpia rce(s) Supporting Document(s) Glu 202 mg/dL 70-110 Above high normal [facility] ([facility] NORMAL RANGES Age WBC RBC HGB HCT [...] HCT IS 5% LESS SOURCE FOR DATA: [employer] 1800 OPERATION MANUAL( AUTOMATED BLOOD COUNTS AND [...] DESIRABLE: <130 MG/DL <110 MG/DL BORDERLINE-HIGH RISK: 130- 159 MG/DL 110-129 MG/DL HIGH RISK: >160 MG/DL >130 MG/DL *CHILDREN AND ADOLESCENTS REPRESENTS INDIVIDUALA AGED 2-19 YEARS EXCLUSIVE. BUN 60 mg/dL 8-23 Above high normal [facility] ([facility] NORMAL RANGES Age WBC RBC HGB HCT [...] HCT IS 5% LESS SOURCE FOR DATA: [employer] 1800 OPERATION MANUAL( AUTOMATED BLOOD COUNTS AND [...] DESIRABLE: <130 MG/DL <110 MG/DL BORDERLINE-HIGH RISK: 130- 159 MG/DL 110-129 MG/DL HIGH RISK: >160 MG/DL >130 MG/DL *CHILDREN AND ADOLESCENTS REPRESENTS INDIVIDUALA AGED 2-19 YEARS EXCLUSIVE. Creat 1.7 mg/dL 0.5-1.0 Above high normal [facility] ([facility] NORMAL RANGES Age WBC RBC HGB HCT [...] HCT IS 5% LESS SOURCE FOR DATA: [employer] 1800 OPERATION MANUAL( AUTOMATED BLOOD COUNTS AND [...] DESIRABLE: <130 MG/DL <110 MG/DL BORDERLINE-HIGH RISK: 130- 159 MG/DL 110-129 MG/DL HIGH RISK: >160 MG/DL >130 MG/DL *CHILDREN AND ADOLESCENTS REPRESENTS INDIVIDUALA AGED 2-19 YEARS EXCLUSIVE. BUN/Creatinine Ratio 35.[address] [facility] ([facility] NORMAL RANGES Age WBC RBC HGB HCT [...] HCT IS 5% LESS SOURCE FOR DATA: [employer] 1800 OPERATION MANUAL( AUTOMATED BLOOD COUNTS AND [...] DESIRABLE: <130 MG/DL <110 MG/DL BORDERLINE-HIGH RISK: 130- 159 MG/DL 110-129 MG/DL HIGH RISK: >160 MG/DL >130 MG/DL *CHILDREN AND ADOLESCENTS REPRESENTS INDIVIDUALA AGED 2-19 YEARS EXCLUSIVE. Na 135 mmol/L 136-145 Below low normal [facility] ( [facility] NORMAL RANGES Age WBC RBC HGB HCT [...] HCT IS 5% LESS SOURCE FOR DATA: [employer] 1800 OPERATION MANUAL( AUTOMATED BLOOD COUNTS AND [...] DESIRABLE: <130 MG/DL <110 MG/DL BORDERLINE-HIGH RISK: 130- 159 MG/DL 110-129 MG/DL HIGH RISK: >160 MG/DL >130 MG/DL *CHILDREN AND ADOLESCENTS REPRESENTS INDIVIDUALA AGED 2-19 YEARS EXCLUSIVE. K 4.8 mmol/L 3.5-5.1 [facility] ([facility] NORMAL RANGES Age WBC RBC HGB HCT [...] HCT IS 5% LESS SOURCE FOR DATA: [employer] 1800 OPERATION MANUAL( AUTOMATED BLOOD COUNTS AND [...] DESIRABLE: <130 MG/DL <110 MG/DL BORDERLINE-HIGH RISK: 130- 159 MG/DL 110-129 MG/DL HIGH RISK: >160 MG/DL >130 MG/DL *CHILDREN AND ADOLESCENTS REPRESENTS INDIVIDUALA AGED 2-19 YEARS EXCLUSIVE. CL 98.8 mmol/L 98.0-107.0 [facility] NORMAL RANGES Age WBC RBC HGB HCT [...] HCT IS 5% LESS SOURCE FOR DATA: [employer] 1800 OPERATION MANUAL( AUTOMATED BLOOD COUNTS AND [...] DESIRABLE: <130 MG/DL <110 MG/DL BORDERLINE-HIGH RISK: 130- 159 MG/DL 110-129 MG/DL HIGH RISK: >160 MG/DL >130 MG/DL *CHILDREN AND ADOLESCENTS REPRESENTS INDIVIDUALA AGED 2-19 YEARS EXCLUSIVE. CA 9.6 mg/dL 8.6-10.2 [facility] ([facility] NORMAL RANGES Age WBC RBC HGB HCT [...] HCT IS 5% LESS SOURCE FOR DATA: [employer] DYN 1800 OPERATION MANUAL( AUTOMATED BLOOD COUNTS AND [...] DESIRABLE: <130 MG/DL <110 MG/DL BORDERLINE-HIGH RISK: 130- 159 MG/DL 110-129 MG/DL HIGH RISK: >160 MG/DL >130 MG/DL *CHILDREN AND ADOLESCENTS REPRESENTS INDIVIDUALA AGED 2-19 YEARS EXCLUSIVE. Co2 19.4 mmol/L 22.0-29.0 Below low normal [facility] ([facility] NORMAL RANGES Age WBC RBC HGB HCT [...] HCT IS 5% LESS SOURCE FOR DATA: [employer] 1800 OPERATION MANUAL( AUTOMATED BLOOD COUNTS AND [...] DESIRABLE: <130 MG/DL <110 MG/DL BORDERLINE-HIGH RISK: 130- 159 MG/DL 110-129 MG/DL HIGH RISK: >160 MG/DL >130 MG/DL *CHILDREN AND ADOLESCENTS REPRESENTS INDIVIDUALA AGED 2-19 YEARS EXCLUSIVE. TP 6.7 g/dL 6.6-8.[address] [facility] NORMAL RANGES Age WBC RBC HGB HCT [...] HCT IS 5% LESS SOURCE FOR DATA: [employer] 1800 OPERATION MANUAL( AUTOMATED BLOOD COUNTS AND [...] DESIRABLE: <130 MG/DL <110 MG/DL BORDERLINE-HIGH RISK: 130- 159 MG/DL 110-129 MG/DL HIGH RISK: >160 MG/DL >130 MG/DL *CHILDREN AND ADOLESCENTS REPRESENTS INDIVIDUALA AGED 2-19 YEARS EXCLUSIVE. Alb 4.5 g/dL 3.4-4.8 [facility] ([facility] NORMAL RANGES Age WBC RBC HGB HCT [...] HCT IS 5% LESS SOURCE FOR DATA: [employer] 1800 OPERATION MANUAL( AUTOMATED BLOOD COUNTS AND [...] DESIRABLE: <130 MG/DL <110 MG/DL BORDERLINE-HIGH RISK: 130- 159 MG/DL 110-129 MG/DL HIGH RISK: >160 MG/DL >130 MG/DL *CHILDREN AND ADOLESCENTS REPRESENTS INDIVIDUALA AGED 2-19 YEARS EXCLUSIVE. A/G Ratio 2.1 CALC [facility] ([facility] NORMAL RANGES Age WBC RBC HGB HCT [...] HCT IS 5% LESS SOURCE FOR DATA: [employer] 1800 OPERATION MANUAL( AUTOMATED BLOOD COUNTS AND [...] DESIRABLE: <130 MG/DL <110 MG/DL BORDERLINE-HIGH RISK: 130- 159 MG/DL 110-129 MG/DL HIGH RISK: >160 MG/DL >130 MG/DL *CHILDREN AND ADOLESCENTS REPRESENTS INDIVIDUALA AGED 2-19 YEARS EXCLUSIVE. Globulin 2.2 CALC [facility] ([facility] NORMAL RANGES Age WBC RBC HGB HCT [...] HCT IS 5% LESS SOURCE FOR DATA: [employer] 1800 OPERATION MANUAL( AUTOMATED BLOOD COUNTS AND [...] DESIRABLE: <130 MG/DL <110 MG/DL BORDERLINE-HIGH RISK: 130- 159 MG/DL 110-129 MG/DL HIGH RISK: >160 MG/DL >130 MG/DL *CHILDREN AND ADOLESCENTS REPRESENTS INDIVIDUALA AGED 2-19 YEARS EXCLUSIVE. Alp 285.1 U/L 35-129 Above high normal [facility] ([facility] NORMAL RANGES Age WBC RBC HGB HCT [...] HCT IS 5% LESS SOURCE FOR DATA: [employer] 1800 OPERATION MANUAL( AUTOMATED BLOOD COUNTS AND [...] DESIRABLE: <130 MG/DL <110 MG/DL BORDERLINE-HIGH RISK: 130- 159 MG/DL 110-129 MG/DL HIGH RISK: >160 MG/DL >130 MG/DL *CHILDREN AND ADOLESCENTS REPRESENTS INDIVIDUALA AGED 2-19 YEARS EXCLUSIVE. Alt (SGPT) 11 U/L 0-41 [facility] ([facility] NORMAL RANGES Age WBC RBC HGB HCT [...] HCT IS 5% LESS SOURCE FOR DATA: [employer] 1800 OPERATION MANUAL( AUTOMATED BLOOD COUNTS AND [...] DESIRABLE: <130 MG/DL <110 MG/DL BORDERLINE-HIGH RISK: 130- 159 MG/DL 110-129 MG/DL HIGH RISK: >160 MG/DL >130 MG/DL *CHILDREN AND ADOLESCENTS REPRESENTS INDIVIDUALA AGED 2-19 YEARS EXCLUSIVE. Ast (Sgot) 17 U/L 0-40 [facility] NORMAL RANGES Age WBC RBC HGB HCT [...] HCT IS 5% LESS SOURCE FOR DATA: [employer] DYN 1800 OPERATION MANUAL( AUTOMATED BLOOD COUNTS AND [...] DESIRABLE: <130 MG/DL <110 MG/DL BORDERLINE-HIGH RISK: 130- 159 MG/DL 110-129 MG/DL HIGH RISK: >160 MG/DL >130 MG/DL *CHILDREN AND ADOLESCENTS REPRESENTS INDIVIDUALA AGED 2-19 YEARS EXCLUSIVE. Tbili 0.97 mg/dL 0.0-1.[address] [facility] ([facility] NORMAL RANGES Age WBC RBC HGB HCT [...] HCT IS 5% LESS SOURCE FOR DATA: [employer] 1800 OPERATION MANUAL( AUTOMATED BLOOD COUNTS AND [...] DESIRABLE: <130 MG/DL <110 MG/DL BORDERLINE-HIGH RISK: 130- 159 MG/DL 110-129 MG/DL HIGH RISK: >160 MG/DL >130 MG/DL *CHILDREN AND ADOLESCENTS REPRESENTS INDIVIDUALA AGED 2-19 YEARS EXCLUSIVE. Osmolality-Calculated 293.7 CALC [facility] ([facility] NORMAL RANGES Age WBC RBC HGB HCT [...] HCT IS 5% LESS SOURCE FOR DATA: [employer] 1800 OPERATION MANUAL( AUTOMATED BLOOD COUNTS AND [...] DESIRABLE: <130 MG/DL <110 MG/DL BORDERLINE-HIGH RISK: 130- 159 MG/DL 110-129 MG/DL HIGH RISK: >160 MG/DL >130 MG/DL *CHILDREN AND ADOLESCENTS REPRESENTS INDIVIDUALA AGED 2-19 YEARS EXCLUSIVE. Anion Gap 22 mmol/L [facility] NORMAL RANGES Age WBC RBC HGB HCT [...] HCT IS 5% LESS SOURCE FOR DATA: [employer] DYN 1800 OPERATION MANUAL( AUTOMATED BLOOD COUNTS AND [...] DESIRABLE: <130 MG/DL <110 MG/DL BORDERLINE-HIGH RISK: 130- 159 MG/DL 110-129 MG/DL HIGH RISK: >160 MG/DL >130 MG/DL *CHILDREN AND ADOLESCENTS REPRESENTS INDIVIDUALA AGED 2-19 YEARS EXCLUSIVE. eGFR 32 # [facility] ( [facility] CKD-EPI eGFR Non-Afr. Lithuanian 28 # [facility] ([facility] CKD-EPI ID Date Data Source [id number] 06/09/2020 09:33:00 AM EST [facility] ([facility] Name Value Range Interpretation Code Description Data Olimpia rce(s) Supporting Document(s) Urate [Mass/volume] in Serum or Plasma 4.2 mg/dL 2.4-5.7 [facility] ([facility] NORMAL RANGES Age WBC RBC HGB HCT [...] HCT IS 5% LESS SOURCE FOR DATA: [employer] 1800 OPERATION MANUAL( AUTOMATED BLOOD COUNTS AND [...] DESIRABLE: <130 MG/DL <110 MG/DL BORDERLINE-HIGH RISK: 130- 159 MG/DL 110-129 MG/DL HIGH RISK: >160 MG/DL >130 MG/DL *CHILDREN AND ADOLESCENTS REPRESENTS INDIVIDUALA AGED 2-19 YEARS EXCLUSIVE. ID Date Data Source [id number] 06/09/2020 09:33:00 AM EST [facility] ([facility] Name Value Range Interpretation Code Description Data Olimpia rce(s) Supporting Document(s) WBC 5.4 10E3/uL 4.1-10.9 [facility] ([facility] NORMAL RANGES Age WBC RBC HGB HCT [...] HCT IS 5% LESS SOURCE FOR DATA: [employer] DYN 1800 OPERATION MANUAL( AUTOMATED BLOOD COUNTS AND [...] DESIRABLE: <130 MG/DL <110 MG/DL BORDERLINE-HIGH RISK: 130- 159 MG/DL 110-129 MG/DL HIGH RISK: >160 MG/DL >130 MG/DL *CHILDREN AND ADOLESCENTS REPRESENTS INDIVIDUALA AGED 2-19 YEARS EXCLUSIVE. RBC 3.66 10E6/uL 4.20-6.30 Below low normal [facility] ([facility] NORMAL RANGES Age WBC RBC HGB HCT [...] HCT IS 5% LESS SOURCE FOR DATA: [employer] 1800 OPERATION MANUAL( AUTOMATED BLOOD COUNTS AND [...] DESIRABLE: <130 MG/DL <110 MG/DL BORDERLINE-HIGH RISK: 130- 159 MG/DL 110-129 MG/DL HIGH RISK: >160 MG/DL >130 MG/DL *CHILDREN AND ADOLESCENTS REPRESENTS INDIVIDUALA AGED 2-19 YEARS EXCLUSIVE. HGB 11.5 g/dL 12.0-18.0 Below low normal [facility] ( [facility] NORMAL RANGES Age WBC RBC HGB HCT [...] HCT IS 5% LESS SOURCE FOR DATA: [employer] 1800 OPERATION MANUAL( AUTOMATED BLOOD COUNTS AND [...] DESIRABLE: <130 MG/DL <110 MG/DL BORDERLINE-HIGH RISK: 130- 159 MG/DL 110-129 MG/DL HIGH RISK: >160 MG/DL >130 MG/DL *CHILDREN AND ADOLESCENTS REPRESENTS INDIVIDUALA AGED 2-19 YEARS EXCLUSIVE. HCT 35.8 % 37.0-51.0 Below low normal [facility] ( [facility] NORMAL RANGES Age WBC RBC HGB HCT [...] HCT IS 5% LESS SOURCE FOR DATA: [employer] 1800 OPERATION MANUAL( AUTOMATED BLOOD COUNTS AND [...] DESIRABLE: <130 MG/DL <110 MG/DL BORDERLINE-HIGH RISK: 130- 159 MG/DL 110-129 MG/DL HIGH RISK: >160 MG/DL >130 MG/DL *CHILDREN AND ADOLESCENTS REPRESENTS INDIVIDUALA AGED 2-19 YEARS EXCLUSIVE. MCV 97.8 fL 80.0-97.0 Above high normal [facility] ([facility] NORMAL RANGES Age WBC RBC HGB HCT [...] HCT IS 5% LESS SOURCE FOR DATA: [employer] 1800 OPERATION MANUAL( AUTOMATED BLOOD COUNTS AND [...] DESIRABLE: <130 MG/DL <110 MG/DL BORDERLINE-HIGH RISK: 130- 159 MG/DL 110-129 MG/DL HIGH RISK: >160 MG/DL >130 MG/DL *CHILDREN AND ADOLESCENTS REPRESENTS INDIVIDUALA AGED 2-19 YEARS EXCLUSIVE. MCH 31.4 pg 26.0-32.0 [facility] ([facility] NORMAL RANGES Age WBC RBC HGB HCT [...] HCT IS 5% LESS SOURCE FOR DATA: [employer] 1800 OPERATION MANUAL( AUTOMATED BLOOD COUNTS AND [...] DESIRABLE: <130 MG/DL <110 MG/DL BORDERLINE-HIGH RISK: 130- 159 MG/DL 110-129 MG/DL HIGH RISK: >160 MG/DL >130 MG/DL *CHILDREN AND ADOLESCENTS REPRESENTS INDIVIDUALA AGED 2-19 YEARS EXCLUSIVE. MCHC 32.1 g/dL 31.0-36.0 [facility] ([facility] NORMAL RANGES Age WBC RBC HGB HCT [...] HCT IS 5% LESS SOURCE FOR DATA: [employer] 1800 OPERATION MANUAL( AUTOMATED BLOOD COUNTS AND [...] DESIRABLE: <130 MG/DL <110 MG/DL BORDERLINE-HIGH RISK: 130- 159 MG/DL 110-129 MG/DL HIGH RISK: >160 MG/DL >130 MG/DL *CHILDREN AND ADOLESCENTS REPRESENTS INDIVIDUALA AGED 2-19 YEARS EXCLUSIVE. PLT 197 10E3/uL 140-440 [facility] ([facility] NORMAL RANGES Age WBC RBC HGB HCT [...] HCT IS 5% LESS SOURCE FOR DATA: [employer] 1800 OPERATION MANUAL( AUTOMATED BLOOD COUNTS AND [...] DESIRABLE: <130 MG/DL <110 MG/DL BORDERLINE-HIGH RISK: 130- 159 MG/DL 110-129 MG/DL HIGH RISK: >160 MG/DL >130 MG/DL *CHILDREN AND ADOLESCENTS REPRESENTS INDIVIDUALA AGED 2-19 YEARS EXCLUSIVE. Lym% 14.1 % 10.0-58.[address] [facility] ([facility] NORMAL RANGES Age WBC RBC HGB HCT [...] HCT IS 5% LESS SOURCE FOR DATA: [employer] 1800 OPERATION MANUAL( AUTOMATED BLOOD COUNTS AND [...] DESIRABLE: <130 MG/DL <110 MG/DL BORDERLINE-HIGH RISK: 130- 159 MG/DL 110-129 MG/DL HIGH RISK: >160 MG/DL >130 MG/DL *CHILDREN AND ADOLESCENTS REPRESENTS INDIVIDUALA AGED 2-19 YEARS EXCLUSIVE. RDW-CV 15.8 % 11.5-14.5 Above high normal [facility] ([facility] NORMAL RANGES Age WBC RBC HGB HCT [...] HCT IS 5% LESS SOURCE FOR DATA: [employer] 1800 OPERATION MANUAL( AUTOMATED BLOOD COUNTS AND [...] DESIRABLE: <130 MG/DL <110 MG/DL BORDERLINE-HIGH RISK: 130- 159 MG/DL 110-129 MG/DL HIGH RISK: >160 MG/DL >130 MG/DL *CHILDREN AND ADOLESCENTS REPRESENTS INDIVIDUALA AGED 2-19 YEARS EXCLUSIVE. Neut% 77.0 % 37.0-92.0 [facility] ([facility] NORMAL RANGES Age WBC RBC HGB HCT [...] HCT IS 5% LESS SOURCE FOR DATA: [employer] 1800 OPERATION MANUAL( AUTOMATED BLOOD COUNTS AND [...] DESIRABLE: <130 MG/DL <110 MG/DL BORDERLINE-HIGH RISK: 130- 159 MG/DL 110-129 MG/DL HIGH RISK: >160 MG/DL >130 MG/DL *CHILDREN AND ADOLESCENTS REPRESENTS INDIVIDUALA AGED 2-19 YEARS EXCLUSIVE. MXD% 8.9 % 0.1-24.0 [facility] ([facility] NORMAL RANGES Age WBC RBC HGB HCT [...] HCT IS 5% LESS SOURCE FOR DATA: [employer] 1800 OPERATION MANUAL( AUTOMATED BLOOD COUNTS AND [...] DESIRABLE: <130 MG/DL <110 MG/DL BORDERLINE-HIGH RISK: 130- 159 MG/DL 110-129 MG/DL HIGH RISK: >160 MG/DL >130 MG/DL *CHILDREN AND ADOLESCENTS REPRESENTS INDIVIDUALA AGED 2-19 YEARS EXCLUSIVE. Lym# 0.8 10E3/uL 0.6-4.[address] [facility] ([facility] NORMAL RANGES Age WBC RBC HGB HCT [...] HCT IS 5% LESS SOURCE FOR DATA: [employer] 1800 OPERATION MANUAL( AUTOMATED BLOOD COUNTS AND [...] DESIRABLE: <130 MG/DL <110 MG/DL BORDERLINE-HIGH RISK: 130- 159 MG/DL 110-129 MG/DL HIGH RISK: >160 MG/DL >130 MG/DL *CHILDREN AND ADOLESCENTS REPRESENTS INDIVIDUALA AGED 2-19 YEARS EXCLUSIVE. Neut# 4.1 % 2.0-7.8 [facility] ([facility] NORMAL RANGES Age WBC RBC HGB HCT [...] HCT IS 5% LESS SOURCE FOR DATA: [employer] 1800 OPERATION MANUAL( AUTOMATED BLOOD COUNTS AND [...] DESIRABLE: <130 MG/DL <110 MG/DL BORDERLINE-HIGH RISK: 130- 159 MG/DL 110-129 MG/DL HIGH RISK: >160 MG/DL >130 MG/DL *CHILDREN AND ADOLESCENTS REPRESENTS INDIVIDUALA AGED 2-19 YEARS EXCLUSIVE. MPV 9.7 fL 9.0-13.[address] [facility] ([facility] NORMAL RANGES Age WBC RBC HGB HCT [...] HCT IS 5% LESS SOURCE FOR DATA: [employer] DYN 1800 OPERATION MANUAL( AUTOMATED BLOOD COUNTS AND [...] DESIRABLE: <130 MG/DL <110 MG/DL BORDERLINE-HIGH RISK: 130- 159 MG/DL 110-129 MG/DL HIGH RISK: >160 MG/DL >130 MG/DL *CHILDREN AND ADOLESCENTS REPRESENTS INDIVIDUALA AGED 2-19 YEARS EXCLUSIVE. MXD# 0.5 10E3/uL 0.0-1.[address] [facility] ([facility] NORMAL RANGES Age WBC RBC HGB HCT [...] HCT IS 5% LESS SOURCE FOR DATA: [employer] 1800 OPERATION MANUAL( AUTOMATED BLOOD COUNTS AND [...] DESIRABLE: <130 MG/DL <110 MG/DL BORDERLINE-HIGH RISK: 130- 159 MG/DL 110-129 MG/DL HIGH RISK: >160 MG/DL >130 MG/DL *CHILDREN AND ADOLESCENTS REPRESENTS INDIVIDUALA AGED 2-19 YEARS EXCLUSIVE. ID Date Data Source [id number] 03/09/2020 10:00:00 AM ESTUARDO RITCHIE ([facility] Name Value Range Interpretation Code Description Data Olimpia rce(s) Supporting Document(s) Thyrotropin [Units/volume] in Serum or Plasma 4.762 ulU/mL 0.60-4.8 [facility] ([facility] ID Date Data Source [id number] 03/09/2020 10:00:00 AM EDT [facility] ([facility] Name Value Range Interpretation Code Description Data Olimpia rce(s) Supporting Document(s) WBC 6.4 10E3/uL 4.1-10.9 [facility] ([facility] NORMAL RANGES Age WBC RBC HGB HCT [...] HCT IS 5% LESS SOURCE FOR DATA: [employer] DYN 1800 OPERATION MANUAL( AUTOMATED BLOOD COUNTS AND [...] DESIRABLE: <130 MG/DL <110 MG/DL BORDERLINE-HIGH RISK: 130- 159 MG/DL 110-129 MG/DL HIGH RISK: >160 MG/DL >130 MG/DL *CHILDREN AND ADOLESCENTS REPRESENTS INDIVIDUALA AGED 2-19 YEARS EXCLUSIVE. RBC 3.39 10E6/uL 4.20-6.30 Below low normal [facility] ([facility] NORMAL RANGES Age WBC RBC HGB HCT [...] HCT IS 5% LESS SOURCE FOR DATA: [employer] 1800 OPERATION MANUAL( AUTOMATED BLOOD COUNTS AND [...] DESIRABLE: <130 MG/DL <110 MG/DL BORDERLINE-HIGH RISK: 130- 159 MG/DL 110-129 MG/DL HIGH RISK: >160 MG/DL >130 MG/DL *CHILDREN AND ADOLESCENTS REPRESENTS INDIVIDUALA AGED 2-19 YEARS EXCLUSIVE. HGB 11.2 g/dL 12.0-18.0 Below low normal [facility] ( [facility] NORMAL RANGES Age WBC RBC HGB HCT [...] HCT IS 5% LESS SOURCE FOR DATA: [employer] 1800 OPERATION MANUAL( AUTOMATED BLOOD COUNTS AND [...] DESIRABLE: <130 MG/DL <110 MG/DL BORDERLINE-HIGH RISK: 130- 159 MG/DL 110-129 MG/DL HIGH RISK: >160 MG/DL >130 MG/DL *CHILDREN AND ADOLESCENTS REPRESENTS INDIVIDUALA AGED 2-19 YEARS EXCLUSIVE. HCT 33.5 % 37.0-51.0 Below low normal [facility] ( [facility] NORMAL RANGES Age WBC RBC HGB HCT [...] HCT IS 5% LESS SOURCE FOR DATA: [employer] 1800 OPERATION MANUAL( AUTOMATED BLOOD COUNTS AND [...] DESIRABLE: <130 MG/DL <110 MG/DL BORDERLINE-HIGH RISK: 130- 159 MG/DL 110-129 MG/DL HIGH RISK: >160 MG/DL >130 MG/DL *CHILDREN AND ADOLESCENTS REPRESENTS INDIVIDUALA AGED 2-19 YEARS EXCLUSIVE. MCV 98.8 fL 80.0-97.0 Above high normal [facility] ([facility] NORMAL RANGES Age WBC RBC HGB HCT [...] HCT IS 5% LESS SOURCE FOR DATA: [employer] 1800 OPERATION MANUAL( AUTOMATED BLOOD COUNTS AND [...] DESIRABLE: <130 MG/DL <110 MG/DL BORDERLINE-HIGH RISK: 130- 159 MG/DL 110-129 MG/DL HIGH RISK: >160 MG/DL >130 MG/DL *CHILDREN AND ADOLESCENTS REPRESENTS INDIVIDUALA AGED 2-19 YEARS EXCLUSIVE. MCH 33.0 pg 26.0-32.0 Above high normal [facility] ([facility] NORMAL RANGES Age WBC RBC HGB HCT [...] HCT IS 5% LESS SOURCE FOR DATA: [employer] DYN 1800 OPERATION MANUAL( AUTOMATED BLOOD COUNTS AND [...] DESIRABLE: <130 MG/DL <110 MG/DL BORDERLINE-HIGH RISK: 130- 159 MG/DL 110-129 MG/DL HIGH RISK: >160 MG/DL >130 MG/DL *CHILDREN AND ADOLESCENTS REPRESENTS INDIVIDUALA AGED 2-19 YEARS EXCLUSIVE. MCHC 33.4 g/dL 31.0-36.0 [facility] ([facility] NORMAL RANGES Age WBC RBC HGB HCT [...] HCT IS 5% LESS SOURCE FOR DATA: [employer] 1800 OPERATION MANUAL( AUTOMATED BLOOD COUNTS AND [...] DESIRABLE: <130 MG/DL <110 MG/DL BORDERLINE-HIGH RISK: 130- 159 MG/DL 110-129 MG/DL HIGH RISK: >160 MG/DL >130 MG/DL *CHILDREN AND ADOLESCENTS REPRESENTS INDIVIDUALA AGED 2-19 YEARS EXCLUSIVE. RDW-CV 15.4 % 11.5-14.5 Above high normal [facility] ([facility] NORMAL RANGES Age WBC RBC HGB HCT [...] HCT IS 5% LESS SOURCE FOR DATA: [employer] DYN 1800 OPERATION MANUAL( AUTOMATED BLOOD COUNTS AND [...] DESIRABLE: <130 MG/DL <110 MG/DL BORDERLINE-HIGH RISK: 130- 159 MG/DL 110-129 MG/DL HIGH RISK: >160 MG/DL >130 MG/DL *CHILDREN AND ADOLESCENTS REPRESENTS INDIVIDUALA AGED 2-19 YEARS EXCLUSIVE. PLT 240 10E3/uL 140-[address] [facility] ([facility] NORMAL RANGES Age WBC RBC HGB HCT [...] HCT IS 5% LESS SOURCE FOR DATA: [employer] 1800 OPERATION MANUAL( AUTOMATED BLOOD COUNTS AND [...] DESIRABLE: <130 MG/DL <110 MG/DL BORDERLINE-HIGH RISK: 130- 159 MG/DL 110-129 MG/DL HIGH RISK: >160 MG/DL >130 MG/DL *CHILDREN AND ADOLESCENTS REPRESENTS INDIVIDUALA AGED 2-19 YEARS EXCLUSIVE. Lym% 11.5 % 10.0-58.5 [facility] ([facility] NORMAL RANGES Age WBC RBC HGB HCT [...] HCT IS 5% LESS SOURCE FOR DATA: [employer] DYN 1800 OPERATION MANUAL( AUTOMATED BLOOD COUNTS AND [...] DESIRABLE: <130 MG/DL <110 MG/DL BORDERLINE-HIGH RISK: 130- 159 MG/DL 110-129 MG/DL HIGH RISK: >160 MG/DL >130 MG/DL *CHILDREN AND ADOLESCENTS REPRESENTS INDIVIDUALA AGED 2-19 YEARS EXCLUSIVE. Neut% 77.9 % 37.0-92.0 [facility] ([facility] NORMAL RANGES Age WBC RBC HGB HCT [...] HCT IS 5% LESS SOURCE FOR DATA: [employer] 1800 OPERATION MANUAL( AUTOMATED BLOOD COUNTS AND [...] DESIRABLE: <130 MG/DL <110 MG/DL BORDERLINE-HIGH RISK: 130- 159 MG/DL 110-129 MG/DL HIGH RISK: >160 MG/DL >130 MG/DL *CHILDREN AND ADOLESCENTS REPRESENTS INDIVIDUALA AGED 2-19 YEARS EXCLUSIVE. MXD% 10.6 % 0.1-24.[address] [facility] ([facility] NORMAL RANGES Age WBC RBC HGB HCT [...] HCT IS 5% LESS SOURCE FOR DATA: [employer] 1800 OPERATION MANUAL( AUTOMATED BLOOD COUNTS AND [...] DESIRABLE: <130 MG/DL <110 MG/DL BORDERLINE-HIGH RISK: 130- 159 MG/DL 110-129 MG/DL HIGH RISK: >160 MG/DL >130 MG/DL *CHILDREN AND ADOLESCENTS REPRESENTS INDIVIDUALA AGED 2-19 YEARS EXCLUSIVE. Lym# 0.7 10E3/uL 0.6-4.[address] [facility] ([facility] NORMAL RANGES Age WBC RBC HGB HCT [...] HCT IS 5% LESS SOURCE FOR DATA: [employer] 1800 OPERATION MANUAL( AUTOMATED BLOOD COUNTS AND [...] DESIRABLE: <130 MG/DL <110 MG/DL BORDERLINE-HIGH RISK: 130- 159 MG/DL 110-129 MG/DL HIGH RISK: >160 MG/DL >130 MG/DL *CHILDREN AND ADOLESCENTS REPRESENTS INDIVIDUALA AGED 2-19 YEARS EXCLUSIVE. Neut# 5.0 % 2.0-7.8 [facility] ([facility] NORMAL RANGES Age WBC RBC HGB HCT [...] HCT IS 5% LESS SOURCE FOR DATA: [employer] 1800 OPERATION MANUAL( AUTOMATED BLOOD COUNTS AND [...] DESIRABLE: <130 MG/DL <110 MG/DL BORDERLINE-HIGH RISK: 130- 159 MG/DL 110-129 MG/DL HIGH RISK: >160 MG/DL >130 MG/DL *CHILDREN AND ADOLESCENTS REPRESENTS INDIVIDUALA AGED 2-19 YEARS EXCLUSIVE. MXD# 0.7 10E3/uL 0.0-1.[address] [facility] ([facility] NORMAL RANGES Age WBC RBC HGB HCT [...] HCT IS 5% LESS SOURCE FOR DATA: [employer] DYN 1800 OPERATION MANUAL( AUTOMATED BLOOD COUNTS AND [...] DESIRABLE: <130 MG/DL <110 MG/DL BORDERLINE-HIGH RISK: 130- 159 MG/DL 110-129 MG/DL HIGH RISK: >160 MG/DL >130 MG/DL *CHILDREN AND ADOLESCENTS REPRESENTS INDIVIDUALA AGED 2-19 YEARS EXCLUSIVE. MPV 9.8 fL 9.0-13.[address] [facility] ([facility] NORMAL RANGES Age WBC RBC HGB HCT [...] HCT IS 5% LESS SOURCE FOR DATA: [employer] 1800 OPERATION MANUAL( AUTOMATED BLOOD COUNTS AND [...] DESIRABLE: <130 MG/DL <110 MG/DL BORDERLINE-HIGH RISK: 130- 159 MG/DL 110-129 MG/DL HIGH RISK: >160 MG/DL >130 MG/DL *CHILDREN AND ADOLESCENTS REPRESENTS INDIVIDUALA AGED 2-19 YEARS EXCLUSIVE. ID Date Data Source [id number] 03/09/2020 10:00:00 AM EDT [facility] ([facility] Name Value Range Interpretation Code Description Data Olimpia rce(s) Supporting Document(s) Trig 411 mg/dL 40-200 Above high normal [facility] ([facility] NORMAL RANGES Age WBC RBC HGB HCT [...] HCT IS 5% LESS SOURCE FOR DATA: [employer] 1800 OPERATION MANUAL( AUTOMATED BLOOD COUNTS AND [...] DESIRABLE: <130 MG/DL <110 MG/DL BORDERLINE-HIGH RISK: 130- 159 MG/DL 110-129 MG/DL HIGH RISK: >160 MG/DL >130 MG/DL *CHILDREN AND ADOLESCENTS REPRESENTS INDIVIDUALA AGED 2-19 YEARS EXCLUSIVE. Chol 197 mg/dL 0-200 [facility] ([facility] NORMAL RANGES Age WBC RBC HGB HCT [...] HCT IS 5% LESS SOURCE FOR DATA: [employer] 1800 OPERATION MANUAL( AUTOMATED BLOOD COUNTS AND [...] DESIRABLE: <130 MG/DL <110 MG/DL BORDERLINE-HIGH RISK: 130- 159 MG/DL 110-129 MG/DL HIGH RISK: >160 MG/DL >130 MG/DL *CHILDREN AND ADOLESCENTS REPRESENTS INDIVIDUALA AGED 2-19 YEARS EXCLUSIVE. Cholesterol in HDL [Mass/volume] in Serum or Plasma 29 mg/dL 45-65 Below low normal [facility] ([facility] NORMAL RANGES Age WBC RBC HGB HCT [...] HCT IS 5% LESS SOURCE FOR DATA: [employer] DYN 1800 OPERATION MANUAL( AUTOMATED BLOOD COUNTS AND [...] DESIRABLE: <130 MG/DL <110 MG/DL BORDERLINE-HIGH RISK: 130- 159 MG/DL 110-129 MG/DL HIGH RISK: >160 MG/DL >130 MG/DL *CHILDREN AND ADOLESCENTS REPRESENTS INDIVIDUALA AGED 2-19 YEARS EXCLUSIVE. LDL_C Laboratory test result 75-129 Abnormal (applies to non -numeric results) [facility] ([facility] NORMAL RANGES Age WBC RBC HGB HCT [...] HCT IS 5% LESS SOURCE FOR DATA: [employer] 1800 OPERATION MANUAL( AUTOMATED BLOOD COUNTS AND [...] DESIRABLE: <130 MG/DL <110 MG/DL BORDERLINE-HIGH RISK: 130- 159 MG/DL 110-129 MG/DL HIGH RISK: >160 MG/DL >130 MG/DL *CHILDREN AND ADOLESCENTS REPRESENTS INDIVIDUALA AGED 2-19 YEARS EXCLUSIVE. Cho/HDL Ratio 6.[address] [facility] ([facility] NORMAL RANGES Age WBC RBC HGB HCT [...] HCT IS 5% LESS SOURCE FOR DATA: [employer] 1800 OPERATION MANUAL( AUTOMATED BLOOD COUNTS AND [...] DESIRABLE: <130 MG/DL <110 MG/DL BORDERLINE-HIGH RISK: 130- 159 MG/DL 110-129 MG/DL HIGH RISK: >160 MG/DL >130 MG/DL *CHILDREN AND ADOLESCENTS REPRESENTS INDIVIDUALA AGED 2-19 YEARS EXCLUSIVE. ID Date Data Source [id number] 03/09/2020 10:00:00 AM EDT [facility] ([facility] Name Value Range Interpretation Code Description Data Olimpia rce(s) Supporting Document(s) Glu 228 mg/dL 70-110 Above high normal [facility] ([facility] NORMAL RANGES Age WBC RBC HGB HCT [...] HCT IS 5% LESS SOURCE FOR DATA: [employer] 1800 OPERATION MANUAL( AUTOMATED BLOOD COUNTS AND [...] DESIRABLE: <130 MG/DL <110 MG/DL BORDERLINE-HIGH RISK: 130- 159 MG/DL 110-129 MG/DL HIGH RISK: >160 MG/DL >130 MG/DL *CHILDREN AND ADOLESCENTS REPRESENTS INDIVIDUALA AGED 2-19 YEARS EXCLUSIVE. BUN 65 mg/dL 8-23 Above high normal [facility] ([facility] NORMAL RANGES Age WBC RBC HGB HCT [...] HCT IS 5% LESS SOURCE FOR DATA: [employer] DYN 1800 OPERATION MANUAL( AUTOMATED BLOOD COUNTS AND [...] DESIRABLE: <130 MG/DL <110 MG/DL BORDERLINE-HIGH RISK: 130- 159 MG/DL 110-129 MG/DL HIGH RISK: >160 MG/DL >130 MG/DL *CHILDREN AND ADOLESCENTS REPRESENTS INDIVIDUALA AGED 2-19 YEARS EXCLUSIVE. Creat 2.1 mg/dL 0.5-1.0 Above high normal [facility] ([facility] NORMAL RANGES Age WBC RBC HGB HCT [...] HCT IS 5% LESS SOURCE FOR DATA: [employer] 1800 OPERATION MANUAL( AUTOMATED BLOOD COUNTS AND [...] DESIRABLE: <130 MG/DL <110 MG/DL BORDERLINE-HIGH RISK: 130- 159 MG/DL 110-129 MG/DL HIGH RISK: >160 MG/DL >130 MG/DL *CHILDREN AND ADOLESCENTS REPRESENTS INDIVIDUALA AGED 2-19 YEARS EXCLUSIVE. BUN/Creatinine Ratio 30.[address] [facility] ([facility] NORMAL RANGES Age WBC RBC HGB HCT [...] HCT IS 5% LESS SOURCE FOR DATA: [employer] 1800 OPERATION MANUAL( AUTOMATED BLOOD COUNTS AND [...] DESIRABLE: <130 MG/DL <110 MG/DL BORDERLINE-HIGH RISK: 130- 159 MG/DL 110-129 MG/DL HIGH RISK: >160 MG/DL >130 MG/DL *CHILDREN AND ADOLESCENTS REPRESENTS INDIVIDUALA AGED 2-19 YEARS EXCLUSIVE. Na 129 mmol/L 136-145 Below low normal [facility] ( [facility] NORMAL RANGES Age WBC RBC HGB HCT [...] HCT IS 5% LESS SOURCE FOR DATA: [employer] DYN 1800 OPERATION MANUAL( AUTOMATED BLOOD COUNTS AND [...] DESIRABLE: <130 MG/DL <110 MG/DL BORDERLINE-HIGH RISK: 130- 159 MG/DL 110-129 MG/DL HIGH RISK: >160 MG/DL >130 MG/DL *CHILDREN AND ADOLESCENTS REPRESENTS INDIVIDUALA AGED 2-19 YEARS EXCLUSIVE. K 5.7 mmol/L 3.5-5.1 Above high normal [facility] ([facility] NORMAL RANGES Age WBC RBC HGB HCT [...] HCT IS 5% LESS SOURCE FOR DATA: [employer] 1800 OPERATION MANUAL( AUTOMATED BLOOD COUNTS AND [...] DESIRABLE: <130 MG/DL <110 MG/DL BORDERLINE-HIGH RISK: 130- 159 MG/DL 110-129 MG/DL HIGH RISK: >160 MG/DL >130 MG/DL *CHILDREN AND ADOLESCENTS REPRESENTS INDIVIDUALA AGED 2-19 YEARS EXCLUSIVE. Co2 21.8 mmol/L 22.0-29.0 Below low normal [facility] ([facility] NORMAL RANGES Age WBC RBC HGB HCT [...] HCT IS 5% LESS SOURCE FOR DATA: [employer] DYN 1800 OPERATION MANUAL( AUTOMATED BLOOD COUNTS AND [...] DESIRABLE: <130 MG/DL <110 MG/DL BORDERLINE-HIGH RISK: 130- 159 MG/DL 110-129 MG/DL HIGH RISK: >160 MG/DL >130 MG/DL *CHILDREN AND ADOLESCENTS REPRESENTS INDIVIDUALA AGED 2-19 YEARS EXCLUSIVE. CL 93.7 mmol/L 98.0-107.0 Below low normal [facility] ([facility] NORMAL RANGES Age WBC RBC HGB HCT [...] HCT IS 5% LESS SOURCE FOR DATA: [employer] DYN 1800 OPERATION MANUAL( AUTOMATED BLOOD COUNTS AND [...] DESIRABLE: <130 MG/DL <110 MG/DL BORDERLINE-HIGH RISK: 130- 159 MG/DL 110-129 MG/DL HIGH RISK: >160 MG/DL >130 MG/DL *CHILDREN AND ADOLESCENTS REPRESENTS INDIVIDUALA AGED 2-19 YEARS EXCLUSIVE. TP 6.7 g/dL 6.6-8.7 [facility] ([facility] NORMAL RANGES Age WBC RBC HGB HCT [...] HCT IS 5% LESS SOURCE FOR DATA: [employer] 1800 OPERATION MANUAL( AUTOMATED BLOOD COUNTS AND [...] DESIRABLE: <130 MG/DL <110 MG/DL BORDERLINE-HIGH RISK: 130- 159 MG/DL 110-129 MG/DL HIGH RISK: >160 MG/DL >130 MG/DL *CHILDREN AND ADOLESCENTS REPRESENTS INDIVIDUALA AGED 2-19 YEARS EXCLUSIVE. CA 9.2 mg/dL 8.6-10.[address] [facility] ([facility] NORMAL RANGES Age WBC RBC HGB HCT [...] HCT IS 5% LESS SOURCE FOR DATA: [employer] 1800 OPERATION MANUAL( AUTOMATED BLOOD COUNTS AND [...] DESIRABLE: <130 MG/DL <110 MG/DL BORDERLINE-HIGH RISK: 130- 159 MG/DL 110-129 MG/DL HIGH RISK: >160 MG/DL >130 MG/DL *CHILDREN AND ADOLESCENTS REPRESENTS INDIVIDUALA AGED 2-19 YEARS EXCLUSIVE. Alb 4.6 g/dL 3.4-4.8 [facility] ([facility] NORMAL RANGES Age WBC RBC HGB HCT [...] HCT IS 5% LESS SOURCE FOR DATA: [employer] 1800 OPERATION MANUAL( AUTOMATED BLOOD COUNTS AND [...] DESIRABLE: <130 MG/DL <110 MG/DL BORDERLINE-HIGH RISK: 130- 159 MG/DL 110-129 MG/DL HIGH RISK: >160 MG/DL >130 MG/DL *CHILDREN AND ADOLESCENTS REPRESENTS INDIVIDUALA AGED 2-19 YEARS EXCLUSIVE. A/G Ratio 2.1 CALC [facility] ([facility] NORMAL RANGES Age WBC RBC HGB HCT [...] HCT IS 5% LESS SOURCE FOR DATA: [employer] 1800 OPERATION MANUAL( AUTOMATED BLOOD COUNTS AND [...] DESIRABLE: <130 MG/DL <110 MG/DL BORDERLINE-HIGH RISK: 130- 159 MG/DL 110-129 MG/DL HIGH RISK: >160 MG/DL >130 MG/DL *CHILDREN AND ADOLESCENTS REPRESENTS INDIVIDUALA AGED 2-19 YEARS EXCLUSIVE. Alt (SGPT) 11 U/L 0-[address] [facility] ([facility] NORMAL RANGES Age WBC RBC HGB HCT [...] HCT IS 5% LESS SOURCE FOR DATA: [employer] 1800 OPERATION MANUAL( AUTOMATED BLOOD COUNTS AND [...] DESIRABLE: <130 MG/DL <110 MG/DL BORDERLINE-HIGH RISK: 130- 159 MG/DL 110-129 MG/DL HIGH RISK: >160 MG/DL >130 MG/DL *CHILDREN AND ADOLESCENTS REPRESENTS INDIVIDUALA AGED 2-19 YEARS EXCLUSIVE. Alp 235.4 U/L 35-129 Above high normal [facility] ([facility] NORMAL RANGES Age WBC RBC HGB HCT [...] HCT IS 5% LESS SOURCE FOR DATA: [employer] DYN 1800 OPERATION MANUAL( AUTOMATED BLOOD COUNTS AND [...] DESIRABLE: <130 MG/DL <110 MG/DL BORDERLINE-HIGH RISK: 130- 159 MG/DL 110-129 MG/DL HIGH RISK: >160 MG/DL >130 MG/DL *CHILDREN AND ADOLESCENTS REPRESENTS INDIVIDUALA AGED 2-19 YEARS EXCLUSIVE. Globulin 2.2 CALC [facility] ([facility] NORMAL RANGES Age WBC RBC HGB HCT [...] HCT IS 5% LESS SOURCE FOR DATA: [employer] 1800 OPERATION MANUAL( AUTOMATED BLOOD COUNTS AND [...] DESIRABLE: <130 MG/DL <110 MG/DL BORDERLINE-HIGH RISK: 130- 159 MG/DL 110-129 MG/DL HIGH RISK: >160 MG/DL >130 MG/DL *CHILDREN AND ADOLESCENTS REPRESENTS INDIVIDUALA AGED 2-19 YEARS EXCLUSIVE. Tbili 0.92 mg/dL 0.0-1.[address] [facility] ([facility] NORMAL RANGES Age WBC RBC HGB HCT [...] HCT IS 5% LESS SOURCE FOR DATA: [employer] 1800 OPERATION MANUAL( AUTOMATED BLOOD COUNTS AND [...] DESIRABLE: <130 MG/DL <110 MG/DL BORDERLINE-HIGH RISK: 130- 159 MG/DL 110-129 MG/DL HIGH RISK: >160 MG/DL >130 MG/DL *CHILDREN AND ADOLESCENTS REPRESENTS INDIVIDUALA AGED 2-19 YEARS EXCLUSIVE. Ast (Sgot) 18 U/L 0-40 [facility] ([facility] NORMAL RANGES Age WBC RBC HGB HCT [...] HCT IS 5% LESS SOURCE FOR DATA: [employer] 1800 OPERATION MANUAL( AUTOMATED BLOOD COUNTS AND [...] DESIRABLE: <130 MG/DL <110 MG/DL BORDERLINE-HIGH RISK: 130- 159 MG/DL 110-129 MG/DL HIGH RISK: >160 MG/DL >130 MG/DL *CHILDREN AND ADOLESCENTS REPRESENTS INDIVIDUALA AGED 2-19 YEARS EXCLUSIVE. Anion Gap 20 mmol/L [facility] ([facility] NORMAL RANGES Age WBC RBC HGB HCT [...] HCT IS 5% LESS SOURCE FOR DATA: [employer] 1800 OPERATION MANUAL( AUTOMATED BLOOD COUNTS AND [...] DESIRABLE: <130 MG/DL <110 MG/DL BORDERLINE-HIGH RISK: 130- 159 MG/DL 110-129 MG/DL HIGH RISK: >160 MG/DL >130 MG/DL *CHILDREN AND ADOLESCENTS REPRESENTS INDIVIDUALA AGED 2-19 YEARS EXCLUSIVE. Osmolality-Calculated 285.6 CALC [facility] ([facility] NORMAL RANGES Age WBC RBC HGB HCT [...] HCT IS 5% LESS SOURCE FOR DATA: [employer] 1800 OPERATION MANUAL( AUTOMATED BLOOD COUNTS AND [...] DESIRABLE: <130 MG/DL <110 MG/DL BORDERLINE-HIGH RISK: 130- 159 MG/DL 110-129 MG/DL HIGH RISK: >160 MG/DL >130 MG/DL *CHILDREN AND ADOLESCENTS REPRESENTS INDIVIDUALA AGED 2-19 YEARS EXCLUSIVE. eGFR 25 # [facility] ( [facility] CKD-EPI eGFR Non-Afr. Lithuanian 21 # [facility] ([facility] CKD-EPI ID Date Data Source [id number] 01/15/2020 01:17:00 PM EDT [facility] ([facility] Name Value Range Interpretation Code Description Data Olimpia rce(s) Supporting Document(s) Ferritin [Mass/volume] in Serum or Plasma 54 ng/mL 8-252 Normal (applies to non- numeric results) [facility] ([facility] ) ID Date Data Source [id number] 01/15/2020 01:17:00 PM EDT [facility] ([facility] Name Value Range Interpretation Code Description Data Olimpia rce(s) Supporting Document(s) Vitamin B12 Level 567 pg/mL Normal (applies to non-numeri c results) [facility] ([facility] VITAMIN B12 NORMAL RANGE NORMAL 247 - 911 PG/ML INDETERMINATE 211 - 246 PG/ML DEFICIENT LESS THAN 211 PG/ML Folate 14.5 ng/mL Normal (applies to non-numeric resul ts) [facility] ([facility] FOLATE NORMAL RANGE NORMAL GREATER THAN 5.4 NG/ML INDETERMINATE 3.4-5.4 NG/ML DEFICIENT LESS THAN 3.4 NG/ML ID Date Data Source [id number] 01/15/2020 01:17:00 PM EDT [facility] ([facility] Name Value Range Interpretation Code Description Data Olimpia rce(s) Supporting Document(s) Total Iron Binding Capacity 348 ug/dL 250-450 Norm al (applies to non-numeric results) [facility] ([facility] Iron (Fe) 68 ug/dL 50-170 Normal (applies to non-numeric resul ts) [facility] ([facility] Percent Saturation 19.5 % 13.2-45.0 Normal (applies to non-numer ic results) [facility] ([facility] ID Date Data Source [id number] 01/15/2020 01:17:00 PM EDT [facility] ([facility] Name Value Range Interpretation Code Description Data Olimpia rce(s) Supporting Document(s) Glucose, Fasting 377 mg/dL 70-100 Above high normal [facility] ([facility] Creatinine For GFR 2.04 mg/dL 0.55-1.30 Above high normal [facility] ([facility] Glomerular Filtration Rate 24.8 Below low normal [facility] ([facility] <content>Units are mL/min/1.73 m2</content>
<content></content>
<content>Chronic Kidney Disease Staging per NKF:</content>
<content></content>
<content>Stage I & II GFR >=60 Normal to Mildly Decreased</content>
<content>Stage III GFR 30- 59 Moderately Decreased</content>
<content>Stage IV GFR 15-29 Severely Decreased</content>
<content>Stage V GFR <15 Very Little GFR Left</content>
<content>ESRD GFR <15 on ORGANIC CHEMISTRY TEACHER</content>
<content></content> Blood Urea Nitrogen 75 mg/dL 7-18 Above high normal [facility] ([facility] Chloride Level 96 meq/L 98-107 Below low normal [facility] ([facility] Sodium Level 129 meq/L 136-145 Below low normal [facility] ([facility] Potassium Serum 4.6 meq/L 3.5-5.1 Normal (applies to non-numeric results) [facility] ([facility] Anion Gap 7 meq/L 8-16 Below low normal [facility] ( [facility] Calcium Level 8.7 mg/dL 8.8-10.2 Below low normal [facility] ([facility] Carbon Dioxide Level 26 meq/L 21-32 Normal (applies to non-num tejas results) [facility] ([facility] Alt/SGPT 23 U/L 12-78 Normal (applies to non-numeric resul ts) [facility] ([facility] Alkaline Phosphatase 252 U/L 45-117 Above high normal [facility] ([facility] Ast/Sgot 18 U/L 7-37 Normal (applies to non-numeric resul ts) [facility] ([facility] Albumin 3.9 GM/DL 3.2-5.2 Normal (applies to non-numeric resul ts) [facility] ([facility] Bilirubin,Total 0.8 mg/dL 0.2-1.0 Normal (applies to non-numeric results) [facility] ([facility] Total Protein 7.4 GM/DL 6.4-8.2 Normal (applies to non-numeric re sults) [facility] ([facility] Albumin/Globulin Ratio 1.1 1.2-2.2 Below low normal [facility] ([facility] ID Date Data Source [id number] 01/15/2020 01:17:00 PM EDT [facility] ([facility] Name Value Range Interpretation Code Description Data Olimpia rce(s) Supporting Document(s) Reticulocyte # 93.5 10 17-77 Above high normal [facility] ([facility] Reticulocyte % 2.7 % 0.5-1.5 Above high normal [facility] ([facility] Retic Hemoglobin Equivalent 34.9 pg 24-36 Norm al (applies to non-numeric results) [facility] ([facility] ) ID Date Data Source [id number] 01/15/2020 01:17:00 PM EDT [facility] ([facility] Name Value Range Interpretation Code Description Data Olimpia rce(s) Supporting Document(s) [place] % 6.8 % 0.0-5.0 Above high normal [facility] ([facility] Lymph % 16.7 % 24.0-44.0 Below low normal [facility] ( [facility] Neutrophils % 72.4 % 36.0-66.0 Above high normal [facility] ([facility] Neutrophils # 4.8 10 1.5-8.5 Normal (applies to non-numeric re sults) [facility] ([facility] Eos % 2.6 % 0.0-3.0 Normal (applies to non-numeric resul ts) [facility] ([facility] Immature Granulocyte % 0.9 % 0-3.0 Normal (applies to non-n umeric results) [facility] ([facility] Baso % 0.6 % 0.0-1.0 Normal (applies to non-numeric resul ts) [facility] ([facility] Eos # 0.2 10 0.0-0.5 Normal (applies to non-numeric resul ts) [facility] ([facility] Lymph # 1.1 10 1.5-5.0 Below low normal [facility] ( [facility] [place] # 0.5 10 0.0-0.8 Normal (applies to non-numeric resul ts) [facility] ([facility] Baso # 0.0 10 0.0-0.2 Normal (applies to non-numeric resul ts) [facility] ([facility] ID Date Data Source [id number] 01/15/2020 01:17:00 PM EDT [facility] ([facility] Name Value Range Interpretation Code Description Data Olimpia rce(s) Supporting Document(s) White Blood Count 6.6 10 4.0-10.0 Normal (applies to non-numeri c results) [facility] ([facility] Hemoglobin 11.2 g/dL 12.0-15.5 Below low normal [facility] ( [facility] Red Blood Count 3.50 10 4.00-5.40 Below low normal [facility] ([facility] Hematocrit 34.6 % 36.0-47.0 Below low normal [facility] ( [facility] Mean Corpuscular Hemoglobin 32.0 pg 27.0-33.0 Norm al (applies to non-numeric results) [facility] ([facility] ) Mean Corpuscular Volume 98.9 fl 80.0-96.0 Above high normal [facility] ([facility] Mean Corpuscular HGB Conc 32.4 g/dL 32.0-36.5 Normal (applies to non-numeric results) [facility] ([facility] ) Red Cell Distribution Width 14.7 % 11.5-14.5 Above high normal [facility] ([facility] Nucleated Red Blood Cell % 0.0 % 0-0 Normal (applies to n on-numeric results) [facility] ([facility] Platelet Count, Automated 214 10 150-450 Normal (applies to non-numeric results) [facility] ([facility] ) ID Date Data Source [id number] 11/28/2019 09:52:00 AM EDT [facility] ([facility] Name Value Range Interpretation Code Description Data Olimpia rce(s) Supporting Document(s) Hemoglobin A1c/Hemoglobin.total in Blood 7.6 % 4.50-6.20 Above high normal [facility] ([facility] ID Date Data Source [id number] 11/28/2019 09:52:00 AM EDT [facility] ([facility] Name Value Range Interpretation Code Description Data Olimpia rce(s) Supporting Document(s) Thyrotropin [Units/volume] in Serum or Plasma 6.009 ulU/mL 0. 60-4.8 Above high normal [facility] ([facility] ) ID Date Data Source [id number] 11/28/2019 09:51:00 AM EDT [facility] ([facility] Name Value Range Interpretation Code Description Data Olimpia rce(s) Supporting Document(s) Urate [Mass/volume] in Serum or Plasma 4.1 mg/dL 2.4-5.7 [facility] ([facility] CLASSIFICATION CHOLESTEROL FO R ADULTS CHILDREN/ADOLESCENTS* DESIRABLE: <200 MG/DL <170 MG/DL BORDER-LINE HIGH RISK: 200-239 MG/DL 170-199 MG/DL HIGH RISK: >240 MG/DL >200 MG/DL CLASS. FOR PRIMARY LDL CHOL PREVENTION: LDL CHOL-CHILD/ADOLESCENTS* DESIRABLE: <130 MG/DL <110 MG/DL BORDERLINE-HIGH RISK: 130-159 MG/DL 110-129 MG/DL HIGH RISK: >160 MG/DL >130 MG/DL *CHILDREN AND ADOLESCENTS REPRESENTS INDIVIDUALA AGED 2-19 YEARS EXCLUSIVE. CHRONIC KIDNEY DISEASE STAGING PER NKF: MALE [...] mL/min Normal 80 and above >32 mL/min NormalNORMAL RANGES Age WBC RBC HGB HCT MCV PLT Adult M 4.1-10.9 4.20-6.30 12.0-18.0 37.0-51.0 80-97 140-440 Adult F 4.1-10.9 4.04-5.48 12.0-18.0 37.0-51.0 80-97 140-440 0- 1 Yr 5.0-20.0 3.9-5.9 15-18 MV: 44 MV: 91 MV: 277 2-9 Yr. 6.0-17.0 3.8-5.4 11-13 MV: 37 MV: 78 MV: 300 10 Yrs. 5.0-13.0 3.8-5.4 12-15 MV: 39 MV: 80 MV: 250 NOTE: * FOR ADULT BLACK MALES AND FEMALES, NORMAL WBC IS 2.9-7.7 K/ML * FOR ADULT BLACK MALES AND FEMALES, NORMAL RBC,HGB, AND HCT IS 5% LESS SOURCE FOR DATA: [employer] 1800 OPERATION MANUAL( AUTOMATED BLOOD COUNTS AND DIFF.) APPENDIX B-3 ID Date Data Source [id number] 11/28/2019 09:51:00 AM EDT [facility] ([facility] Name Value Range Interpretation Code Description Data Olimpia rce(s) Supporting Document(s) Trig 202 mg/dL 40-200 Above high normal [facility] ([facility] CLASSIFICATION CHOLESTEROL FO R ADULTS CHILDREN/ADOLESCENTS* DESIRABLE: <200 MG/DL <170 MG/DL BORDER-LINE HIGH RISK: 200-239 MG/DL 170-199 MG/DL HIGH RISK: >240 MG/DL >200 MG/DL CLASS. FOR PRIMARY LDL CHOL PREVENTION: LDL CHOL-CHILD/ADOLESCENTS* DESIRABLE: <130 MG/DL <110 MG/DL BORDERLINE-HIGH RISK: 130-159 MG/DL 110-129 MG/DL HIGH RISK: >160 MG/DL >130 MG/DL *CHILDREN AND ADOLESCENTS REPRESENTS INDIVIDUALA AGED 2-19 YEARS EXCLUSIVE. CHRONIC KIDNEY DISEASE STAGING PER NKF: MALE [...] mL/min Normal 80 and above >32 mL/min NormalNORMAL RANGES Age WBC RBC HGB HCT MCV PLT Adult M 4.1-10.9 4.20-6.30 12.0-18.0 37.0-51.0 80-97 140-440 Adult F 4.1-10.9 4.04-5.48 12.0-18.0 37.0-51.0 80-97 140-440 0- 1 Yr 5.0-20.0 3.9-5.9 15-18 MV: 44 MV: 91 MV: 277 2-9 Yr. 6.0-17.0 3.8-5.4 11-13 MV: 37 MV: 78 MV: 300 10 Yrs. 5.0-13.0 3.8-5.4 12-15 MV: 39 MV: 80 MV: 250 NOTE: * FOR ADULT BLACK MALES AND FEMALES, NORMAL WBC IS 2.9-7.7 K/ML * FOR ADULT BLACK MALES AND FEMALES, NORMAL RBC,HGB, AND HCT IS 5% LESS SOURCE FOR DATA: [employer] DYN 1800 OPERATION MANUAL( AUTOMATED BLOOD COUNTS AND DIFF.) APPENDIX B-3 Cholesterol in HDL [Mass/volume] in Serum or Plasma 30 mg/dL 45-65 Below low normal [facility] ([facility] CLASSIFICATION CHOLESTEROL FO R ADULTS CHILDREN/ADOLESCENTS* DESIRABLE: <200 MG/DL <170 MG/DL BORDER-LINE HIGH RISK: 200-239 MG/DL 170-199 MG/DL HIGH RISK: >240 MG/DL >200 MG/DL CLASS. FOR PRIMARY LDL CHOL PREVENTION: LDL CHOL-CHILD/ADOLESCENTS* DESIRABLE: <130 MG/DL <110 MG/DL BORDERLINE-HIGH RISK: 130-159 MG/DL 110-129 MG/DL HIGH RISK: >160 MG/DL >130 MG/DL *CHILDREN AND ADOLESCENTS REPRESENTS INDIVIDUALA AGED 2-19 YEARS EXCLUSIVE. CHRONIC KIDNEY DISEASE STAGING PER NKF: MALE [...] mL/min Normal 80 and above >32 mL/min NormalNORMAL RANGES Age WBC RBC HGB HCT MCV PLT Adult M 4.1-10.9 4.20-6.30 12.0-18.0 37.0-51.0 80-97 140-440 Adult F 4.1-10.9 4.04-5.48 12.0-18.0 37.0-51.0 80-97 140-440 0- 1 Yr 5.0-20.0 3.9-5.9 15-18 MV: 44 MV: 91 MV: 277 2-9 Yr. 6.0-17.0 3.8-5.4 11-13 MV: 37 MV: 78 MV: 300 10 Yrs. 5.0-13.0 3.8-5.4 12-15 MV: 39 MV: 80 MV: 250 NOTE: * FOR ADULT BLACK MALES AND FEMALES, NORMAL WBC IS 2.9-7.7 K/ML * FOR ADULT BLACK MALES AND FEMALES, NORMAL RBC,HGB, AND HCT IS 5% LESS SOURCE FOR DATA: [employer] 1800 OPERATION MANUAL( AUTOMATED BLOOD COUNTS AND DIFF.) APPENDIX B-3 Chol 168 mg/dL 0-200 [facility] CLASSIFICATION CHOLESTEROL FO R ADULTS CHILDREN/ADOLESCENTS* DESIRABLE: <200 MG/DL <170 MG/DL BORDER-LINE HIGH RISK: 200-239 MG/DL 170-199 MG/DL HIGH RISK: >240 MG/DL >200 MG/DL CLASS. FOR PRIMARY LDL CHOL PREVENTION: LDL CHOL-CHILD/ADOLESCENTS* DESIRABLE: <130 MG/DL <110 MG/DL BORDERLINE-HIGH RISK: 130-159 MG/DL 110-129 MG/DL HIGH RISK: >160 MG/DL >130 MG/DL *CHILDREN AND ADOLESCENTS REPRESENTS INDIVIDUALA AGED 2-19 YEARS EXCLUSIVE. CHRONIC KIDNEY DISEASE STAGING PER NKF: MALE [...] mL/min Normal 80 and above >32 mL/min NormalNORMAL RANGES Age WBC RBC HGB HCT MCV PLT Adult M 4.1-10.9 4.20-6.30 12.0-18.0 37.0-51.0 80-97 140-440 Adult F 4.1-10.9 4.04-5.48 12.0-18.0 37.0-51.0 80-97 140-440 0- 1 Yr 5.0-20.0 3.9-5.9 15-18 MV: 44 MV: 91 MV: 277 2-9 Yr. 6.0-17.0 3.8-5.4 11-13 MV: 37 MV: 78 MV: 300 10 Yrs. 5.0-13.0 3.8-5.4 12-15 MV: 39 MV: 80 MV: 250 NOTE: * FOR ADULT BLACK MALES AND FEMALES, NORMAL WBC IS 2.9-7.7 K/ML * FOR ADULT BLACK MALES AND FEMALES, NORMAL RBC,HGB, AND HCT IS 5% LESS SOURCE FOR DATA: [employer] 1800 OPERATION MANUAL( AUTOMATED BLOOD COUNTS AND DIFF.) APPENDIX B-3 Cho/HDL Ratio 5.6 CALC [facility] ([facility] CLASSIFICATION CHOLESTEROL FO R ADULTS CHILDREN/ADOLESCENTS* DESIRABLE: <200 MG/DL <170 MG/DL BORDER-LINE HIGH RISK: 200-239 MG/DL 170-199 MG/DL HIGH RISK: >240 MG/DL >200 MG/DL CLASS. FOR PRIMARY LDL CHOL PREVENTION: LDL CHOL-CHILD/ADOLESCENTS* DESIRABLE: <130 MG/DL <110 MG/DL BORDERLINE-HIGH RISK: 130-159 MG/DL 110-129 MG/DL HIGH RISK: >160 MG/DL >130 MG/DL *CHILDREN AND ADOLESCENTS REPRESENTS INDIVIDUALA AGED 2-19 YEARS EXCLUSIVE. CHRONIC KIDNEY DISEASE STAGING PER NKF: MALE [...] mL/min Normal 80 and above >32 mL/min NormalNORMAL RANGES Age WBC RBC HGB HCT MCV PLT Adult M 4.1-10.9 4.20-6.30 12.0-18.0 37.0-51.0 80-97 140-440 Adult F 4.1-10.9 4.04-5.48 12.0-18.0 37.0-51.0 80-97 140-440 0- 1 Yr 5.0-20.0 3.9-5.9 15-18 MV: 44 MV: 91 MV: 277 2-9 Yr. 6.0-17.0 3.8-5.4 11-13 MV: 37 MV: 78 MV: 300 10 Yrs. 5.0-13.0 3.8-5.4 12-15 MV: 39 MV: 80 MV: 250 NOTE: * FOR ADULT BLACK MALES AND FEMALES, NORMAL WBC IS 2.9-7.7 K/ML * FOR ADULT BLACK MALES AND FEMALES, NORMAL RBC,HGB, AND HCT IS 5% LESS SOURCE FOR DATA: [employer] DYN 1800 OPERATION MANUAL( AUTOMATED BLOOD COUNTS AND DIFF.) APPENDIX B-3 LDL_C 98 Calc 75-[address] [facility] CLASSIFICATION CHOLESTEROL FO R ADULTS CHILDREN/ADOLESCENTS* DESIRABLE: <200 MG/DL <170 MG/DL BORDER-LINE HIGH RISK: 200-239 MG/DL 170-199 MG/DL HIGH RISK: >240 MG/DL >200 MG/DL CLASS. FOR PRIMARY LDL CHOL PREVENTION: LDL CHOL-CHILD/ADOLESCENTS* DESIRABLE: <130 MG/DL <110 MG/DL BORDERLINE-HIGH RISK: 130-159 MG/DL 110-129 MG/DL HIGH RISK: >160 MG/DL >130 MG/DL *CHILDREN AND ADOLESCENTS REPRESENTS INDIVIDUALA AGED 2-19 YEARS EXCLUSIVE. CHRONIC KIDNEY DISEASE STAGING PER NKF: MALE [...] mL/min Normal 80 and above >32 mL/min NormalNORMAL RANGES Age WBC RBC HGB HCT MCV PLT Adult M 4.1-10.9 4.20-6.30 12.0-18.0 37.0-51.0 80-97 140-440 Adult F 4.1-10.9 4.04-5.48 12.0-18.0 37.0-51.0 80-97 140-440 0- 1 Yr 5.0-20.0 3.9-5.9 15-18 MV: 44 MV: 91 MV: 277 2-9 Yr. 6.0-17.0 3.8-5.4 11-13 MV: 37 MV: 78 MV: 300 10 Yrs. 5.0-13.0 3.8-5.4 12-15 MV: 39 MV: 80 MV: 250 NOTE: * FOR ADULT BLACK MALES AND FEMALES, NORMAL WBC IS 2.9-7.7 K/ML * FOR ADULT BLACK MALES AND FEMALES, NORMAL RBC,HGB, AND HCT IS 5% LESS SOURCE FOR DATA: [employer] 1800 OPERATION MANUAL( AUTOMATED BLOOD COUNTS AND DIFF.) APPENDIX B-3 ID Date Data Source [id number] 11/28/2019 09:51:00 AM EDT [facility] ([facility] Name Value Range Interpretation Code Description Data Olimpia rce(s) Supporting Document(s) Glu 176 mg/dL 70-110 Above high normal [facility] ([facility] CLASSIFICATION CHOLESTEROL FO R ADULTS CHILDREN/ADOLESCENTS* DESIRABLE: <200 MG/DL <170 MG/DL BORDER-LINE HIGH RISK: 200-239 MG/DL 170-199 MG/DL HIGH RISK: >240 MG/DL >200 MG/DL CLASS. FOR PRIMARY LDL CHOL PREVENTION: LDL CHOL-CHILD/ADOLESCENTS* DESIRABLE: <130 MG/DL <110 MG/DL BORDERLINE-HIGH RISK: 130-159 MG/DL 110-129 MG/DL HIGH RISK: >160 MG/DL >130 MG/DL *CHILDREN AND ADOLESCENTS REPRESENTS INDIVIDUALA AGED 2-19 YEARS EXCLUSIVE. CHRONIC KIDNEY DISEASE STAGING PER NKF: MALE [...] mL/min Normal 80 and above >32 mL/min NormalNORMAL RANGES Age WBC RBC HGB HCT MCV PLT Adult M 4.1-10.9 4.20-6.30 12.0-18.0 37.0-51.0 80-97 140-440 Adult F 4.1-10.9 4.04-5.48 12.0-18.0 37.0-51.0 80-97 140-440 0- 1 Yr 5.0-20.0 3.9-5.9 15-18 MV: 44 MV: 91 MV: 277 2-9 Yr. 6.0-17.0 3.8-5.4 11-13 MV: 37 MV: 78 MV: 300 10 Yrs. 5.0-13.0 3.8-5.4 12-15 MV: 39 MV: 80 MV: 250 NOTE: * FOR ADULT BLACK MALES AND FEMALES, NORMAL WBC IS 2.9-7.7 K/ML * FOR ADULT BLACK MALES AND FEMALES, NORMAL RBC,HGB, AND HCT IS 5% LESS SOURCE FOR DATA: [employer] DYN 1800 OPERATION MANUAL( AUTOMATED BLOOD COUNTS AND DIFF.) APPENDIX B-3 BUN 48 mg/dL 8-23 Above high normal [facility] ([facility] CLASSIFICATION CHOLESTEROL FO R ADULTS CHILDREN/ADOLESCENTS* DESIRABLE: <200 MG/DL <170 MG/DL BORDER-LINE HIGH RISK: 200-239 MG/DL 170-199 MG/DL HIGH RISK: >240 MG/DL >200 MG/DL CLASS. FOR PRIMARY LDL CHOL PREVENTION: LDL CHOL-CHILD/ADOLESCENTS* DESIRABLE: <130 MG/DL <110 MG/DL BORDERLINE-HIGH RISK: 130-159 MG/DL 110-129 MG/DL HIGH RISK: >160 MG/DL >130 MG/DL *CHILDREN AND ADOLESCENTS REPRESENTS INDIVIDUALA AGED 2-19 YEARS EXCLUSIVE. CHRONIC KIDNEY DISEASE STAGING PER NKF: MALE [...] mL/min Normal 80 and above >32 mL/min NormalNORMAL RANGES Age WBC RBC HGB HCT MCV PLT Adult M 4.1-10.9 4.20-6.30 12.0-18.0 37.0-51.0 80-97 140-440 Adult F 4.1-10.9 4.04-5.48 12.0-18.0 37.0-51.0 80-97 140-440 0- 1 Yr 5.0-20.0 3.9-5.9 15-18 MV: 44 MV: 91 MV: 277 2-9 Yr. 6.0-17.0 3.8-5.4 11-13 MV: 37 MV: 78 MV: 300 10 Yrs. 5.0-13.0 3.8-5.4 12-15 MV: 39 MV: 80 MV: 250 NOTE: * FOR ADULT BLACK MALES AND FEMALES, NORMAL WBC IS 2.9-7.7 K/ML * FOR ADULT BLACK MALES AND FEMALES, NORMAL RBC,HGB, AND HCT IS 5% LESS SOURCE FOR DATA: [employer] DYN 1800 OPERATION MANUAL( AUTOMATED BLOOD COUNTS AND DIFF.) APPENDIX B-3 Creat 1.6 mg/dL 0.5-1.0 Above high normal [facility] ([facility] CLASSIFICATION CHOLESTEROL FO R ADULTS CHILDREN/ADOLESCENTS* DESIRABLE: <200 MG/DL <170 MG/DL BORDER-LINE HIGH RISK: 200-239 MG/DL 170-199 MG/DL HIGH RISK: >240 MG/DL >200 MG/DL CLASS. FOR PRIMARY LDL CHOL PREVENTION: LDL CHOL-CHILD/ADOLESCENTS* DESIRABLE: <130 MG/DL <110 MG/DL BORDERLINE-HIGH RISK: 130-159 MG/DL 110-129 MG/DL HIGH RISK: >160 MG/DL >130 MG/DL *CHILDREN AND ADOLESCENTS REPRESENTS INDIVIDUALA AGED 2-19 YEARS EXCLUSIVE. CHRONIC KIDNEY DISEASE STAGING PER NKF: MALE [...] mL/min Normal 80 and above >32 mL/min NormalNORMAL RANGES Age WBC RBC HGB HCT MCV PLT Adult M 4.1-10.9 4.20-6.30 12.0-18.0 37.0-51.0 80-97 140-440 Adult F 4.1-10.9 4.04-5.48 12.0-18.0 37.0-51.0 80-97 140-440 0- 1 Yr 5.0-20.0 3.9-5.9 15-18 MV: 44 MV: 91 MV: 277 2-9 Yr. 6.0-17.0 3.8-5.4 11-13 MV: 37 MV: 78 MV: 300 10 Yrs. 5.0-13.0 3.8-5.4 12-15 MV: 39 MV: 80 MV: 250 NOTE: * FOR ADULT BLACK MALES AND FEMALES, NORMAL WBC IS 2.9-7.7 K/ML * FOR ADULT BLACK MALES AND FEMALES, NORMAL RBC,HGB, AND HCT IS 5% LESS SOURCE FOR DATA: [employer] DYN 1800 OPERATION MANUAL( AUTOMATED BLOOD COUNTS AND DIFF.) APPENDIX B-3 Na 134 mmol/L 136-145 Below low normal [facility] ( [facility] CLASSIFICATION CHOLESTEROL FO R ADULTS CHILDREN/ADOLESCENTS* DESIRABLE: <200 MG/DL <170 MG/DL BORDER-LINE HIGH RISK: 200-239 MG/DL 170-199 MG/DL HIGH RISK: >240 MG/DL >200 MG/DL CLASS. FOR PRIMARY LDL CHOL PREVENTION: LDL CHOL-CHILD/ADOLESCENTS* DESIRABLE: <130 MG/DL <110 MG/DL BORDERLINE-HIGH RISK: 130-159 MG/DL 110-129 MG/DL HIGH RISK: >160 MG/DL >130 MG/DL *CHILDREN AND ADOLESCENTS REPRESENTS INDIVIDUALA AGED 2-19 YEARS EXCLUSIVE. CHRONIC KIDNEY DISEASE STAGING PER NKF: MALE [...] mL/min Normal 80 and above >32 mL/min NormalNORMAL RANGES Age WBC RBC HGB HCT MCV PLT Adult M 4.1-10.9 4.20-6.30 12.0-18.0 37.0-51.0 80-97 140-440 Adult F 4.1-10.9 4.04-5.48 12.0-18.0 37.0-51.0 80-97 140-440 0- 1 Yr 5.0-20.0 3.9-5.9 15-18 MV: 44 MV: 91 MV: 277 2-9 Yr. 6.0-17.0 3.8-5.4 11-13 MV: 37 MV: 78 MV: 300 10 Yrs. 5.0-13.0 3.8-5.4 12-15 MV: 39 MV: 80 MV: 250 NOTE: * FOR ADULT BLACK MALES AND FEMALES, NORMAL WBC IS 2.9-7.7 K/ML * FOR ADULT BLACK MALES AND FEMALES, NORMAL RBC,HGB, AND HCT IS 5% LESS SOURCE FOR DATA: [employer] DYN 1800 OPERATION MANUAL( AUTOMATED BLOOD COUNTS AND DIFF.) APPENDIX B-3 K 5.6 mmol/L 3.5-5.1 Above high normal [facility] ([facility] CLASSIFICATION CHOLESTEROL FO R ADULTS CHILDREN/ADOLESCENTS* DESIRABLE: <200 MG/DL <170 MG/DL BORDER-LINE HIGH RISK: 200-239 MG/DL 170-199 MG/DL HIGH RISK: >240 MG/DL >200 MG/DL CLASS. FOR PRIMARY LDL CHOL PREVENTION: LDL CHOL-CHILD/ADOLESCENTS* DESIRABLE: <130 MG/DL <110 MG/DL BORDERLINE-HIGH RISK: 130-159 MG/DL 110-129 MG/DL HIGH RISK: >160 MG/DL >130 MG/DL *CHILDREN AND ADOLESCENTS REPRESENTS INDIVIDUALA AGED 2-19 YEARS EXCLUSIVE. CHRONIC KIDNEY DISEASE STAGING PER NKF: MALE [...] mL/min Normal 80 and above >32 mL/min NormalNORMAL RANGES Age WBC RBC HGB HCT MCV PLT Adult M 4.1-10.9 4.20-6.30 12.0-18.0 37.0-51.0 80-97 140-440 Adult F 4.1-10.9 4.04-5.48 12.0-18.0 37.0-51.0 80-97 140-440 0- 1 Yr 5.0-20.0 3.9-5.9 15-18 MV: 44 MV: 91 MV: 277 2-9 Yr. 6.0-17.0 3.8-5.4 11-13 MV: 37 MV: 78 MV: 300 10 Yrs. 5.0-13.0 3.8-5.4 12-15 MV: 39 MV: 80 MV: 250 NOTE: * FOR ADULT BLACK MALES AND FEMALES, NORMAL WBC IS 2.9-7.7 K/ML * FOR ADULT BLACK MALES AND FEMALES, NORMAL RBC,HGB, AND HCT IS 5% LESS SOURCE FOR DATA: [employer] DYN 1800 OPERATION MANUAL( AUTOMATED BLOOD COUNTS AND DIFF.) APPENDIX B-3 BUN/Creatinine Ratio 30.3 Calc [facility] ([facility] CLASSIFICATION CHOLESTEROL FO R ADULTS CHILDREN/ADOLESCENTS* DESIRABLE: <200 MG/DL <170 MG/DL BORDER-LINE HIGH RISK: 200-239 MG/DL 170-199 MG/DL HIGH RISK: >240 MG/DL >200 MG/DL CLASS. FOR PRIMARY LDL CHOL PREVENTION: LDL CHOL-CHILD/ADOLESCENTS* DESIRABLE: <130 MG/DL <110 MG/DL BORDERLINE-HIGH RISK: 130-159 MG/DL 110-129 MG/DL HIGH RISK: >160 MG/DL >130 MG/DL *CHILDREN AND ADOLESCENTS REPRESENTS INDIVIDUALA AGED 2-19 YEARS EXCLUSIVE. CHRONIC KIDNEY DISEASE STAGING PER NKF: MALE [...] mL/min Normal 80 and above >32 mL/min NormalNORMAL RANGES Age WBC RBC HGB HCT MCV PLT Adult M 4.1-10.9 4.20-6.30 12.0-18.0 37.0-51.0 80-97 140-440 Adult F 4.1-10.9 4.04-5.48 12.0-18.0 37.0-51.0 80-97 140-440 0- 1 Yr 5.0-20.0 3.9-5.9 15-18 MV: 44 MV: 91 MV: 277 2-9 Yr. 6.0-17.0 3.8-5.4 11-13 MV: 37 MV: 78 MV: 300 10 Yrs. 5.0-13.0 3.8-5.4 12-15 MV: 39 MV: 80 MV: 250 NOTE: * FOR ADULT BLACK MALES AND FEMALES, NORMAL WBC IS 2.9-7.7 K/ML * FOR ADULT BLACK MALES AND FEMALES, NORMAL RBC,HGB, AND HCT IS 5% LESS SOURCE FOR DATA: [employer] 1800 OPERATION MANUAL( AUTOMATED BLOOD COUNTS AND DIFF.) APPENDIX B-3 Co2 18.4 mmol/L 22.0-29.0 Below low normal [facility] ([facility] CLASSIFICATION CHOLESTEROL FO R ADULTS CHILDREN/ADOLESCENTS* DESIRABLE: <200 MG/DL <170 MG/DL BORDER-LINE HIGH RISK: 200-239 MG/DL 170-199 MG/DL HIGH RISK: >240 MG/DL >200 MG/DL CLASS. FOR PRIMARY LDL CHOL PREVENTION: LDL CHOL-CHILD/ADOLESCENTS* DESIRABLE: <130 MG/DL <110 MG/DL BORDERLINE-HIGH RISK: 130-159 MG/DL 110-129 MG/DL HIGH RISK: >160 MG/DL >130 MG/DL *CHILDREN AND ADOLESCENTS REPRESENTS INDIVIDUALA AGED 2-19 YEARS EXCLUSIVE. CHRONIC KIDNEY DISEASE STAGING PER NKF: MALE [...] mL/min Normal 80 and above >32 mL/min NormalNORMAL RANGES Age WBC RBC HGB HCT MCV PLT Adult M 4.1-10.9 4.20-6.30 12.0-18.0 37.0-51.0 80-97 140-440 Adult F 4.1-10.9 4.04-5.48 12.0-18.0 37.0-51.0 80-97 140-440 0- 1 Yr 5.0-20.0 3.9-5.9 15-18 MV: 44 MV: 91 MV: 277 2-9 Yr. 6.0-17.0 3.8-5.4 11-13 MV: 37 MV: 78 MV: 300 10 Yrs. 5.0-13.0 3.8-5.4 12-15 MV: 39 MV: 80 MV: 250 NOTE: * FOR ADULT BLACK MALES AND FEMALES, NORMAL WBC IS 2.9-7.7 K/ML * FOR ADULT BLACK MALES AND FEMALES, NORMAL RBC,HGB, AND HCT IS 5% LESS SOURCE FOR DATA: [employer]OM[employer] 1800 OPERATION MANUAL( AUTOMATED BLOOD COUNTS AND DIFF.) APPENDIX B-3 CL 99.5 mmol/L 98.0-107.0 [facility] ([facility] CLASSIFICATION CHOLESTEROL FO R ADULTS CHILDREN/ADOLESCENTS* DESIRABLE: <200 MG/DL <170 MG/DL BORDER-LINE HIGH RISK: 200-239 MG/DL 170-199 MG/DL HIGH RISK: >240 MG/DL >200 MG/DL CLASS. FOR PRIMARY LDL CHOL PREVENTION: LDL CHOL-CHILD/ADOLESCENTS* DESIRABLE: <130 MG/DL <110 MG/DL BORDERLINE-HIGH RISK: 130-159 MG/DL 110-129 MG/DL HIGH RISK: >160 MG/DL >130 MG/DL *CHILDREN AND ADOLESCENTS REPRESENTS INDIVIDUALA AGED 2-19 YEARS EXCLUSIVE. CHRONIC KIDNEY DISEASE STAGING PER NKF: MALE [...] mL/min Normal 80 and above >32 mL/min NormalNORMAL RANGES Age WBC RBC HGB HCT MCV PLT Adult M 4.1-10.9 4.20-6.30 12.0-18.0 37.0-51.0 80-97 140-440 Adult F 4.1-10.9 4.04-5.48 12.0-18.0 37.0-51.0 80-97 140-440 0- 1 Yr 5.0-20.0 3.9-5.9 15-18 MV: 44 MV: 91 MV: 277 2-9 Yr. 6.0-17.0 3.8-5.4 11-13 MV: 37 MV: 78 MV: 300 10 Yrs. 5.0-13.0 3.8-5.4 12-15 MV: 39 MV: 80 MV: 250 NOTE: * FOR ADULT BLACK MALES AND FEMALES, NORMAL WBC IS 2.9-7.7 K/ML * FOR ADULT BLACK MALES AND FEMALES, NORMAL RBC,HGB, AND HCT IS 5% LESS SOURCE FOR DATA: [employer] 1800 OPERATION MANUAL( AUTOMATED BLOOD COUNTS AND DIFF.) APPENDIX B-3 CA 9.7 mg/dL 8.6-10.2 [facility] ([facility] CLASSIFICATION CHOLESTEROL FO R ADULTS CHILDREN/ADOLESCENTS* DESIRABLE: <200 MG/DL <170 MG/DL BORDER-LINE HIGH RISK: 200-239 MG/DL 170-199 MG/DL HIGH RISK: >240 MG/DL >200 MG/DL CLASS. FOR PRIMARY LDL CHOL PREVENTION: LDL CHOL-CHILD/ADOLESCENTS* DESIRABLE: <130 MG/DL <110 MG/DL BORDERLINE-HIGH RISK: 130-159 MG/DL 110-129 MG/DL HIGH RISK: >160 MG/DL >130 MG/DL *CHILDREN AND ADOLESCENTS REPRESENTS INDIVIDUALA AGED 2-19 YEARS EXCLUSIVE. CHRONIC KIDNEY DISEASE STAGING PER NKF: MALE [...] mL/min Normal 80 and above >32 mL/min NormalNORMAL RANGES Age WBC RBC HGB HCT MCV PLT Adult M 4.1-10.9 4.20-6.30 12.0-18.0 37.0-51.0 80-97 140-440 Adult F 4.1-10.9 4.04-5.48 12.0-18.0 37.0-51.0 80-97 140-440 0- 1 Yr 5.0-20.0 3.9-5.9 15-18 MV: 44 MV: 91 MV: 277 2-9 Yr. 6.0-17.0 3.8-5.4 11-13 MV: 37 MV: 78 MV: 300 10 Yrs. 5.0-13.0 3.8-5.4 12-15 MV: 39 MV: 80 MV: 250 NOTE: * FOR ADULT BLACK MALES AND FEMALES, NORMAL WBC IS 2.9-7.7 K/ML * FOR ADULT BLACK MALES AND FEMALES, NORMAL RBC,HGB, AND HCT IS 5% LESS SOURCE FOR DATA: [employer]MY [employer]YN 1800 OPERATION MANUAL( AUTOMATED BLOOD COUNTS AND DIFF.) APPENDIX B-3 TP 6.7 g/dL 6.6-8.7 [facility] ([facility] CLASSIFICATION CHOLESTEROL FO R ADULTS CHILDREN/ADOLESCENTS* DESIRABLE: <200 MG/DL <170 MG/DL BORDER-LINE HIGH RISK: 200-239 MG/DL 170-199 MG/DL HIGH RISK: >240 MG/DL >200 MG/DL CLASS. FOR PRIMARY LDL CHOL PREVENTION: LDL CHOL-CHILD/ADOLESCENTS* DESIRABLE: <130 MG/DL <110 MG/DL BORDERLINE-HIGH RISK: 130-159 MG/DL 110-129 MG/DL HIGH RISK: >160 MG/DL >130 MG/DL *CHILDREN AND ADOLESCENTS REPRESENTS INDIVIDUALA AGED 2-19 YEARS EXCLUSIVE. CHRONIC KIDNEY DISEASE STAGING PER NKF: MALE [...] mL/min Normal 80 and above >32 mL/min NormalNORMAL RANGES Age WBC RBC HGB HCT MCV PLT Adult M 4.1-10.9 4.20-6.30 12.0-18.0 37.0-51.0 80-97 140-440 Adult F 4.1-10.9 4.04-5.48 12.0-18.0 37.0-51.0 80-97 140-440 0- 1 Yr 5.0-20.0 3.9-5.9 15-18 MV: 44 MV: 91 MV: 277 2-9 Yr. 6.0-17.0 3.8-5.4 11-13 MV: 37 MV: 78 MV: 300 10 Yrs. 5.0-13.0 3.8-5.4 12-15 MV: 39 MV: 80 MV: 250 NOTE: * FOR ADULT BLACK MALES AND FEMALES, NORMAL WBC IS 2.9-7.7 K/ML * FOR ADULT BLACK MALES AND FEMALES, NORMAL RBC,HGB, AND HCT IS 5% LESS SOURCE FOR DATA: TOMMY DYN 1800 OPERATION MANUAL( AUTOMATED BLOOD COUNTS AND DIFF.) APPENDIX B-3 A/G Ratio 1.9 Calc [facility] CLASSIFICATION CHOLESTEROL FO R ADULTS CHILDREN/ADOLESCENTS* DESIRABLE: <200 MG/DL <170 MG/DL BORDER-LINE HIGH RISK: 200-239 MG/DL 170-199 MG/DL HIGH RISK: >240 MG/DL >200 MG/DL CLASS. FOR PRIMARY LDL CHOL PREVENTION: LDL CHOL-CHILD/ADOLESCENTS* DESIRABLE: <130 MG/DL <110 MG/DL BORDERLINE-HIGH RISK: 130-159 MG/DL 110-129 MG/DL HIGH RISK: >160 MG/DL >130 MG/DL *CHILDREN AND ADOLESCENTS REPRESENTS INDIVIDUALA AGED 2-19 YEARS EXCLUSIVE. CHRONIC KIDNEY DISEASE STAGING PER NKF: MALE [...] mL/min Normal 80 and above >32 mL/min NormalNORMAL RANGES Age WBC RBC HGB HCT MCV PLT Adult M 4.1-10.9 4.20-6.30 12.0-18.0 37.0-51.0 80-97 140-440 Adult F 4.1-10.9 4.04-5.48 12.0-18.0 37.0-51.0 80-97 140-440 0- 1 Yr 5.0-20.0 3.9-5.9 15-18 MV: 44 MV: 91 MV: 277 2-9 Yr. 6.0-17.0 3.8-5.4 11-13 MV: 37 MV: 78 MV: 300 10 Yrs. 5.0-13.0 3.8-5.4 12-15 MV: 39 MV: 80 MV: 250 NOTE: * FOR ADULT BLACK MALES AND FEMALES, NORMAL WBC IS 2.9-7.7 K/ML * FOR ADULT BLACK MALES AND FEMALES, NORMAL RBC,HGB, AND HCT IS 5% LESS SOURCE FOR DATA: [employer] 1800 OPERATION MANUAL( AUTOMATED BLOOD COUNTS AND DIFF.) APPENDIX B-3 Alb 4.4 g/dL 3.4-4.8 [facility] ([facility] CLASSIFICATION CHOLESTEROL FO R ADULTS CHILDREN/ADOLESCENTS* DESIRABLE: <200 MG/DL <170 MG/DL BORDER-LINE HIGH RISK: 200-239 MG/DL 170-199 MG/DL HIGH RISK: >240 MG/DL >200 MG/DL CLASS. FOR PRIMARY LDL CHOL PREVENTION: LDL CHOL-CHILD/ADOLESCENTS* DESIRABLE: <130 MG/DL <110 MG/DL BORDERLINE-HIGH RISK: 130-159 MG/DL 110-129 MG/DL HIGH RISK: >160 MG/DL >130 MG/DL *CHILDREN AND ADOLESCENTS REPRESENTS INDIVIDUALA AGED 2-19 YEARS EXCLUSIVE. CHRONIC KIDNEY DISEASE STAGING PER NKF: MALE [...] mL/min Normal 80 and above >32 mL/min NormalNORMAL RANGES Age WBC RBC HGB HCT MCV PLT Adult M 4.1-10.9 4.20-6.30 12.0-18.0 37.0-51.0 80-97 140-440 Adult F 4.1-10.9 4.04-5.48 12.0-18.0 37.0-51.0 80-97 140-440 0- 1 Yr 5.0-20.0 3.9-5.9 15-18 MV: 44 MV: 91 MV: 277 2-9 Yr. 6.0-17.0 3.8-5.4 11-13 MV: 37 MV: 78 MV: 300 10 Yrs. 5.0-13.0 3.8-5.4 12-15 MV: 39 MV: 80 MV: 250 NOTE: * FOR ADULT BLACK MALES AND FEMALES, NORMAL WBC IS 2.9-7.7 K/ML * FOR ADULT BLACK MALES AND FEMALES, NORMAL RBC,HGB, AND HCT IS 5% LESS SOURCE FOR DATA: [employer] 1800 OPERATION MANUAL( AUTOMATED BLOOD COUNTS AND DIFF.) APPENDIX B-3 Ast (Sgot) 18 U/L 0-40 [facility] ([facility] CLASSIFICATION CHOLESTEROL FO R ADULTS CHILDREN/ADOLESCENTS* DESIRABLE: <200 MG/DL <170 MG/DL BORDER-LINE HIGH RISK: 200-239 MG/DL 170-199 MG/DL HIGH RISK: >240 MG/DL >200 MG/DL CLASS. FOR PRIMARY LDL CHOL PREVENTION: LDL CHOL-CHILD/ADOLESCENTS* DESIRABLE: <130 MG/DL <110 MG/DL BORDERLINE-HIGH RISK: 130-159 MG/DL 110-129 MG/DL HIGH RISK: >160 MG/DL >130 MG/DL *CHILDREN AND ADOLESCENTS REPRESENTS INDIVIDUALA AGED 2-19 YEARS EXCLUSIVE. CHRONIC KIDNEY DISEASE STAGING PER NKF: MALE [...] mL/min Normal 80 and above >32 mL/min NormalNORMAL RANGES Age WBC RBC HGB HCT MCV PLT Adult M 4.1-10.9 4.20-6.30 12.0-18.0 37.0-51.0 80-97 140-440 Adult F 4.1-10.9 4.04-5.48 12.0-18.0 37.0-51.0 80-97 140-440 0- 1 Yr 5.0-20.0 3.9-5.9 15-18 MV: 44 MV: 91 MV: 277 2-9 Yr. 6.0-17.0 3.8-5.4 11-13 MV: 37 MV: 78 MV: 300 10 Yrs. 5.0-13.0 3.8-5.4 12-15 MV: 39 MV: 80 MV: 250 NOTE: * FOR ADULT BLACK MALES AND FEMALES, NORMAL WBC IS 2.9-7.7 K/ML * FOR ADULT BLACK MALES AND FEMALES, NORMAL RBC,HGB, AND HCT IS 5% LESS SOURCE FOR DATA: TOMMY DYN 1800 OPERATION MANUAL( AUTOMATED BLOOD COUNTS AND DIFF.) APPENDIX B-3 Alt (SGPT) 11 U/L 0-[address] [facility] ([facility] CLASSIFICATION CHOLESTEROL FO R ADULTS CHILDREN/ADOLESCENTS* DESIRABLE: <200 MG/DL <170 MG/DL BORDER-LINE HIGH RISK: 200-239 MG/DL 170-199 MG/DL HIGH RISK: >240 MG/DL >200 MG/DL CLASS. FOR PRIMARY LDL CHOL PREVENTION: LDL CHOL-CHILD/ADOLESCENTS* DESIRABLE: <130 MG/DL <110 MG/DL BORDERLINE-HIGH RISK: 130-159 MG/DL 110-129 MG/DL HIGH RISK: >160 MG/DL >130 MG/DL *CHILDREN AND ADOLESCENTS REPRESENTS INDIVIDUALA AGED 2-19 YEARS EXCLUSIVE. CHRONIC KIDNEY DISEASE STAGING PER NKF: MALE [...] mL/min Normal 80 and above >32 mL/min NormalNORMAL RANGES Age WBC RBC HGB HCT MCV PLT Adult M 4.1-10.9 4.20-6.30 12.0-18.0 37.0-51.0 80-97 140-440 Adult F 4.1-10.9 4.04-5.48 12.0-18.0 37.0-51.0 80-97 140-440 0- 1 Yr 5.0-20.0 3.9-5.9 15-18 MV: 44 MV: 91 MV: 277 2-9 Yr. 6.0-17.0 3.8-5.4 11-13 MV: 37 MV: 78 MV: 300 10 Yrs. 5.0-13.0 3.8-5.4 12-15 MV: 39 MV: 80 MV: 250 NOTE: * FOR ADULT BLACK MALES AND FEMALES, NORMAL WBC IS 2.9-7.7 K/ML * FOR ADULT BLACK MALES AND FEMALES, NORMAL RBC,HGB, AND HCT IS 5% LESS SOURCE FOR DATA: [employer] DYN 1800 OPERATION MANUAL( AUTOMATED BLOOD COUNTS AND DIFF.) APPENDIX B-3 Alp 277.0 U/L 35-129 Above high normal [facility] ([facility] CLASSIFICATION CHOLESTEROL FO R ADULTS CHILDREN/ADOLESCENTS* DESIRABLE: <200 MG/DL <170 MG/DL BORDER-LINE HIGH RISK: 200-239 MG/DL 170-199 MG/DL HIGH RISK: >240 MG/DL >200 MG/DL CLASS. FOR PRIMARY LDL CHOL PREVENTION: LDL CHOL-CHILD/ADOLESCENTS* DESIRABLE: <130 MG/DL <110 MG/DL BORDERLINE-HIGH RISK: 130-159 MG/DL 110-129 MG/DL HIGH RISK: >160 MG/DL >130 MG/DL *CHILDREN AND ADOLESCENTS REPRESENTS INDIVIDUALA AGED 2-19 YEARS EXCLUSIVE. CHRONIC KIDNEY DISEASE STAGING PER NKF: MALE [...] mL/min Normal 80 and above >32 mL/min NormalNORMAL RANGES Age WBC RBC HGB HCT MCV PLT Adult M 4.1-10.9 4.20-6.30 12.0-18.0 37.0-51.0 80-97 140-440 Adult F 4.1-10.9 4.04-5.48 12.0-18.0 37.0-51.0 80-97 140-440 0- 1 Yr 5.0-20.0 3.9-5.9 15-18 MV: 44 MV: 91 MV: 277 2-9 Yr. 6.0-17.0 3.8-5.4 11-13 MV: 37 MV: 78 MV: 300 10 Yrs. 5.0-13.0 3.8-5.4 12-15 MV: 39 MV: 80 MV: 250 NOTE: * FOR ADULT BLACK MALES AND FEMALES, NORMAL WBC IS 2.9-7.7 K/ML * FOR ADULT BLACK MALES AND FEMALES, NORMAL RBC,HGB, AND HCT IS 5% LESS SOURCE FOR DATA: [employer] DYN 1800 OPERATION MANUAL( AUTOMATED BLOOD COUNTS AND DIFF.) APPENDIX B-3 Globulin 2.3 Calc [facility] ([facility] CLASSIFICATION CHOLESTEROL FO R ADULTS CHILDREN/ADOLESCENTS* DESIRABLE: <200 MG/DL <170 MG/DL BORDER-LINE HIGH RISK: 200-239 MG/DL 170-199 MG/DL HIGH RISK: >240 MG/DL >200 MG/DL CLASS. FOR PRIMARY LDL CHOL PREVENTION: LDL CHOL-CHILD/ADOLESCENTS* DESIRABLE: <130 MG/DL <110 MG/DL BORDERLINE-HIGH RISK: 130-159 MG/DL 110-129 MG/DL HIGH RISK: >160 MG/DL >130 MG/DL *CHILDREN AND ADOLESCENTS REPRESENTS INDIVIDUALA AGED 2-19 YEARS EXCLUSIVE. CHRONIC KIDNEY DISEASE STAGING PER NKF: MALE [...] mL/min Normal 80 and above >32 mL/min NormalNORMAL RANGES Age WBC RBC HGB HCT MCV PLT Adult M 4.1-10.9 4.20-6.30 12.0-18.0 37.0-51.0 80-97 140-440 Adult F 4.1-10.9 4.04-5.48 12.0-18.0 37.0-51.0 80-97 140-440 0- 1 Yr 5.0-20.0 3.9-5.9 15-18 MV: 44 MV: 91 MV: 277 2-9 Yr. 6.0-17.0 3.8-5.4 11-13 MV: 37 MV: 78 MV: 300 10 Yrs. 5.0-13.0 3.8-5.4 12-15 MV: 39 MV: 80 MV: 250 NOTE: * FOR ADULT BLACK MALES AND FEMALES, NORMAL WBC IS 2.9-7.7 K/ML * FOR ADULT BLACK MALES AND FEMALES, NORMAL RBC,HGB, AND HCT IS 5% LESS SOURCE FOR DATA: [employer] DYN 1800 OPERATION MANUAL( AUTOMATED BLOOD COUNTS AND DIFF.) APPENDIX B-3 Osmolality-Calculated 277.98 [place] [facility] ([facility] CLASSIFICATION CHOLESTEROL FO R ADULTS CHILDREN/ADOLESCENTS* DESIRABLE: <200 MG/DL <170 MG/DL BORDER-LINE HIGH RISK: 200-239 MG/DL 170-199 MG/DL HIGH RISK: >240 MG/DL >200 MG/DL CLASS. FOR PRIMARY LDL CHOL PREVENTION: LDL CHOL-CHILD/ADOLESCENTS* DESIRABLE: <130 MG/DL <110 MG/DL BORDERLINE-HIGH RISK: 130-159 MG/DL 110-129 MG/DL HIGH RISK: >160 MG/DL >130 MG/DL *CHILDREN AND ADOLESCENTS REPRESENTS INDIVIDUALA AGED 2-19 YEARS EXCLUSIVE. CHRONIC KIDNEY DISEASE STAGING PER NKF: MALE [...] mL/min Normal 80 and above >32 mL/min NormalNORMAL RANGES Age WBC RBC HGB HCT MCV PLT Adult M 4.1-10.9 4.20-6.30 12.0-18.0 37.0-51.0 80-97 140-440 Adult F 4.1-10.9 4.04-5.48 12.0-18.0 37.0-51.0 80-97 140-440 0- 1 Yr 5.0-20.0 3.9-5.9 15-18 MV: 44 MV: 91 MV: 277 2-9 Yr. 6.0-17.0 3.8-5.4 11-13 MV: 37 MV: 78 MV: 300 10 Yrs. 5.0-13.0 3.8-5.4 12-15 MV: 39 MV: 80 MV: 250 NOTE: * FOR ADULT BLACK MALES AND FEMALES, NORMAL WBC IS 2.9-7.7 K/ML * FOR ADULT BLACK MALES AND FEMALES, NORMAL RBC,HGB, AND HCT IS 5% LESS SOURCE FOR DATA: [employer] 1800 OPERATION MANUAL( AUTOMATED BLOOD COUNTS AND DIFF.) APPENDIX B-3 Tbili 0.69 mg/dL 0.0-1.2 [facility] ([facility] CLASSIFICATION CHOLESTEROL FO R ADULTS CHILDREN/ADOLESCENTS* DESIRABLE: <200 MG/DL <170 MG/DL BORDER-LINE HIGH RISK: 200-239 MG/DL 170-199 MG/DL HIGH RISK: >240 MG/DL >200 MG/DL CLASS. FOR PRIMARY LDL CHOL PREVENTION: LDL CHOL-CHILD/ADOLESCENTS* DESIRABLE: <130 MG/DL <110 MG/DL BORDERLINE-HIGH RISK: 130-159 MG/DL 110-129 MG/DL HIGH RISK: >160 MG/DL >130 MG/DL *CHILDREN AND ADOLESCENTS REPRESENTS INDIVIDUALA AGED 2-19 YEARS EXCLUSIVE. CHRONIC KIDNEY DISEASE STAGING PER NKF: MALE [...] mL/min Normal 80 and above >32 mL/min NormalNORMAL RANGES Age WBC RBC HGB HCT MCV PLT Adult M 4.1-10.9 4.20-6.30 12.0-18.0 37.0-51.0 80-97 140-440 Adult F 4.1-10.9 4.04-5.48 12.0-18.0 37.0-51.0 80-97 140-440 0- 1 Yr 5.0-20.0 3.9-5.9 15-18 MV: 44 MV: 91 MV: 277 2-9 Yr. 6.0-17.0 3.8-5.4 11-13 MV: 37 MV: 78 MV: 300 10 Yrs. 5.0-13.0 3.8-5.4 12-15 MV: 39 MV: 80 MV: 250 NOTE: * FOR ADULT BLACK MALES AND FEMALES, NORMAL WBC IS 2.9-7.7 K/ML * FOR ADULT BLACK MALES AND FEMALES, NORMAL RBC,HGB, AND HCT IS 5% LESS SOURCE FOR DATA: [employer] DYN 1800 OPERATION MANUAL( AUTOMATED BLOOD COUNTS AND DIFF.) APPENDIX B-3 Anion Gap 21.7 mmol/L [facility] ([facility] CLASSIFICATION CHOLESTEROL FO R ADULTS CHILDREN/ADOLESCENTS* DESIRABLE: <200 MG/DL <170 MG/DL BORDER-LINE HIGH RISK: 200-239 MG/DL 170-199 MG/DL HIGH RISK: >240 MG/DL >200 MG/DL CLASS. FOR PRIMARY LDL CHOL PREVENTION: LDL CHOL-CHILD/ADOLESCENTS* DESIRABLE: <130 MG/DL <110 MG/DL BORDERLINE-HIGH RISK: 130-159 MG/DL 110-129 MG/DL HIGH RISK: >160 MG/DL >130 MG/DL *CHILDREN AND ADOLESCENTS REPRESENTS INDIVIDUALA AGED 2-19 YEARS EXCLUSIVE. CHRONIC KIDNEY DISEASE STAGING PER NKF: MALE [...] mL/min Normal 80 and above >32 mL/min NormalNORMAL RANGES Age WBC RBC HGB HCT MCV PLT Adult M 4.1-10.9 4.20-6.30 12.0-18.0 37.0-51.0 80-97 140-440 Adult F 4.1-10.9 4.04-5.48 12.0-18.0 37.0-51.0 80-97 140-440 0- 1 Yr 5.0-20.0 3.9-5.9 15-18 MV: 44 MV: 91 MV: 277 2-9 Yr. 6.0-17.0 3.8-5.4 11-13 MV: 37 MV: 78 MV: 300 10 Yrs. 5.0-13.0 3.8-5.4 12-15 MV: 39 MV: 80 MV: 250 NOTE: * FOR ADULT BLACK MALES AND FEMALES, NORMAL WBC IS 2.9-7.7 K/ML * FOR ADULT BLACK MALES AND FEMALES, NORMAL RBC,HGB, AND HCT IS 5% LESS SOURCE FOR DATA: [employer] DYN 1800 OPERATION MANUAL( AUTOMATED BLOOD COUNTS AND DIFF.) APPENDIX B-3 eGFR Non-Afr. Lithuanian 30 # [facility] ([facility] CLASSIFICATION CHOLESTEROL FO R ADULTS CHILDREN/ADOLESCENTS* DESIRABLE: <200 MG/DL <170 MG/DL BORDER-LINE HIGH RISK: 200-239 MG/DL 170-199 MG/DL HIGH RISK: >240 MG/DL >200 MG/DL CLASS. FOR PRIMARY LDL CHOL PREVENTION: LDL CHOL-CHILD/ADOLESCENTS* DESIRABLE: <130 MG/DL <110 MG/DL BORDERLINE-HIGH RISK: 130-159 MG/DL 110-129 MG/DL HIGH RISK: >160 MG/DL >130 MG/DL *CHILDREN AND ADOLESCENTS REPRESENTS INDIVIDUALA AGED 2-19 YEARS EXCLUSIVE. CHRONIC KIDNEY DISEASE STAGING PER NKF: MALE [...] mL/min Normal 80 and above >32 mL/min NormalNORMAL RANGES Age WBC RBC HGB HCT MCV PLT Adult M 4.1-10.9 4.20-6.30 12.0-18.0 37.0-51.0 80-97 140-440 Adult F 4.1-10.9 4.04-5.48 12.0-18.0 37.0-51.0 80-97 140-440 0- 1 Yr 5.0-20.0 3.9-5.9 15-18 MV: 44 MV: 91 MV: 277 2-9 Yr. 6.0-17.0 3.8-5.4 11-13 MV: 37 MV: 78 MV: 300 10 Yrs. 5.0-13.0 3.8-5.4 12-15 MV: 39 MV: 80 MV: 250 NOTE: * FOR ADULT BLACK MALES AND FEMALES, NORMAL WBC IS 2.9-7.7 K/ML * FOR ADULT BLACK MALES AND FEMALES, NORMAL RBC,HGB, AND HCT IS 5% LESS SOURCE FOR DATA: [employer] 1800 OPERATION MANUAL( AUTOMATED BLOOD COUNTS AND DIFF.) APPENDIX B-3 eGFR 34 # [facility] ( [facility] CLASSIFICATION CHOLESTEROL FO R ADULTS CHILDREN/ADOLESCENTS* DESIRABLE: <200 MG/DL <170 MG/DL BORDER-LINE HIGH RISK: 200-239 MG/DL 170-199 MG/DL HIGH RISK: >240 MG/DL >200 MG/DL CLASS. FOR PRIMARY LDL CHOL PREVENTION: LDL CHOL-CHILD/ADOLESCENTS* DESIRABLE: <130 MG/DL <110 MG/DL BORDERLINE-HIGH RISK: 130-159 MG/DL 110-129 MG/DL HIGH RISK: >160 MG/DL >130 MG/DL *CHILDREN AND ADOLESCENTS REPRESENTS INDIVIDUALA AGED 2-19 YEARS EXCLUSIVE. CHRONIC KIDNEY DISEASE STAGING PER NKF: MALE [...] mL/min Normal 80 and above >32 mL/min NormalNORMAL RANGES Age WBC RBC HGB HCT MCV PLT Adult M 4.1-10.9 4.20-6.30 12.0-18.0 37.0-51.0 80-97 140-440 Adult F 4.1-10.9 4.04-5.48 12.0-18.0 37.0-51.0 80-97 140-440 0- 1 Yr 5.0-20.0 3.9-5.9 15-18 MV: 44 MV: 91 MV: 277 2-9 Yr. 6.0-17.0 3.8-5.4 11-13 MV: 37 MV: 78 MV: 300 10 Yrs. 5.0-13.0 3.8-5.4 12-15 MV: 39 MV: 80 MV: 250 NOTE: * FOR ADULT BLACK MALES AND FEMALES, NORMAL WBC IS 2.9-7.7 K/ML * FOR ADULT BLACK MALES AND FEMALES, NORMAL RBC,HGB, AND HCT IS 5% LESS SOURCE FOR DATA: [employer] DYN 1800 OPERATION MANUAL( AUTOMATED BLOOD COUNTS AND DIFF.) APPENDIX B-3 ID Date Data Source [id number] 11/28/2019 09:51:00 AM EDT [facility] ([facility] Name Value Range Interpretation Code Description Data Olimpia rce(s) Supporting Document(s) RBC 3.28 10E6/uL 4.20-6.30 Below low normal [facility] ([facility] CLASSIFICATION CHOLESTEROL FO R ADULTS CHILDREN/ADOLESCENTS* DESIRABLE: <200 MG/DL <170 MG/DL BORDER-LINE HIGH RISK: 200-239 MG/DL 170-199 MG/DL HIGH RISK: >240 MG/DL >200 MG/DL CLASS. FOR PRIMARY LDL CHOL PREVENTION: LDL CHOL-CHILD/ADOLESCENTS* DESIRABLE: <130 MG/DL <110 MG/DL BORDERLINE-HIGH RISK: 130-159 MG/DL 110-129 MG/DL HIGH RISK: >160 MG/DL >130 MG/DL *CHILDREN AND ADOLESCENTS REPRESENTS INDIVIDUALA AGED 2-19 YEARS EXCLUSIVE. CHRONIC KIDNEY DISEASE STAGING PER NKF: MALE [...] mL/min Normal 80 and above >32 mL/min NormalNORMAL RANGES Age WBC RBC HGB HCT MCV PLT Adult M 4.1-10.9 4.20-6.30 12.0-18.0 37.0-51.0 80-97 140-440 Adult F 4.1-10.9 4.04-5.48 12.0-18.0 37.0-51.0 80-97 140-440 0- 1 Yr 5.0-20.0 3.9-5.9 15-18 MV: 44 MV: 91 MV: 277 2-9 Yr. 6.0-17.0 3.8-5.4 11-13 MV: 37 MV: 78 MV: 300 10 Yrs. 5.0-13.0 3.8-5.4 12-15 MV: 39 MV: 80 MV: 250 NOTE: * FOR ADULT BLACK MALES AND FEMALES, NORMAL WBC IS 2.9-7.7 K/ML * FOR ADULT BLACK MALES AND FEMALES, NORMAL RBC,HGB, AND HCT IS 5% LESS SOURCE FOR DATA: [employer] 1800 OPERATION MANUAL( AUTOMATED BLOOD COUNTS AND DIFF.) APPENDIX B-3 HGB 10.8 g/dL 12.0-18.0 Below low normal [facility] ( [facility] CLASSIFICATION CHOLESTEROL FO R ADULTS CHILDREN/ADOLESCENTS* DESIRABLE: <200 MG/DL <170 MG/DL BORDER-LINE HIGH RISK: 200-239 MG/DL 170-199 MG/DL HIGH RISK: >240 MG/DL >200 MG/DL CLASS. FOR PRIMARY LDL CHOL PREVENTION: LDL CHOL-CHILD/ADOLESCENTS* DESIRABLE: <130 MG/DL <110 MG/DL BORDERLINE-HIGH RISK: 130-159 MG/DL 110-129 MG/DL HIGH RISK: >160 MG/DL >130 MG/DL *CHILDREN AND ADOLESCENTS REPRESENTS INDIVIDUALA AGED 2-19 YEARS EXCLUSIVE. CHRONIC KIDNEY DISEASE STAGING PER NKF: MALE [...] mL/min Normal 80 and above >32 mL/min NormalNORMAL RANGES Age WBC RBC HGB HCT MCV PLT Adult M 4.1-10.9 4.20-6.30 12.0-18.0 37.0-51.0 80-97 140-440 Adult F 4.1-10.9 4.04-5.48 12.0-18.0 37.0-51.0 80-97 140-440 0- 1 Yr 5.0-20.0 3.9-5.9 15-18 MV: 44 MV: 91 MV: 277 2-9 Yr. 6.0-17.0 3.8-5.4 11-13 MV: 37 MV: 78 MV: 300 10 Yrs. 5.0-13.0 3.8-5.4 12-15 MV: 39 MV: 80 MV: 250 NOTE: * FOR ADULT BLACK MALES AND FEMALES, NORMAL WBC IS 2.9-7.7 K/ML * FOR ADULT BLACK MALES AND FEMALES, NORMAL RBC,HGB, AND HCT IS 5% LESS SOURCE FOR DATA: [employer] DYN 1800 OPERATION MANUAL( AUTOMATED BLOOD COUNTS AND DIFF.) APPENDIX B-3 WBC 5.9 10E3/uL 4.1-10.[address] [facility] ([facility] CLASSIFICATION CHOLESTEROL FO R ADULTS CHILDREN/ADOLESCENTS* DESIRABLE: <200 MG/DL <170 MG/DL BORDER-LINE HIGH RISK: 200-239 MG/DL 170-199 MG/DL HIGH RISK: >240 MG/DL >200 MG/DL CLASS. FOR PRIMARY LDL CHOL PREVENTION: LDL CHOL-CHILD/ADOLESCENTS* DESIRABLE: <130 MG/DL <110 MG/DL BORDERLINE-HIGH RISK: 130-159 MG/DL 110-129 MG/DL HIGH RISK: >160 MG/DL >130 MG/DL *CHILDREN AND ADOLESCENTS REPRESENTS INDIVIDUALA AGED 2-19 YEARS EXCLUSIVE. CHRONIC KIDNEY DISEASE STAGING PER NKF: MALE [...] mL/min Normal 80 and above >32 mL/min NormalNORMAL RANGES Age WBC RBC HGB HCT MCV PLT Adult M 4.1-10.9 4.20-6.30 12.0-18.0 37.0-51.0 80-97 140-440 Adult F 4.1-10.9 4.04-5.48 12.0-18.0 37.0-51.0 80-97 140-440 0- 1 Yr 5.0-20.0 3.9-5.9 15-18 MV: 44 MV: 91 MV: 277 2-9 Yr. 6.0-17.0 3.8-5.4 11-13 MV: 37 MV: 78 MV: 300 10 Yrs. 5.0-13.0 3.8-5.4 12-15 MV: 39 MV: 80 MV: 250 NOTE: * FOR ADULT BLACK MALES AND FEMALES, NORMAL WBC IS 2.9-7.7 K/ML * FOR ADULT BLACK MALES AND FEMALES, NORMAL RBC,HGB, AND HCT IS 5% LESS SOURCE FOR DATA: [employer] DYN 1800 OPERATION MANUAL( AUTOMATED BLOOD COUNTS AND DIFF.) APPENDIX B-3 MCHC 32.0 g/dL 31.0-36.0 [facility] CLASSIFICATION CHOLESTEROL FO R ADULTS CHILDREN/ADOLESCENTS* DESIRABLE: <200 MG/DL <170 MG/DL BORDER-LINE HIGH RISK: 200-239 MG/DL 170-199 MG/DL HIGH RISK: >240 MG/DL >200 MG/DL CLASS. FOR PRIMARY LDL CHOL PREVENTION: LDL CHOL-CHILD/ADOLESCENTS* DESIRABLE: <130 MG/DL <110 MG/DL BORDERLINE-HIGH RISK: 130-159 MG/DL 110-129 MG/DL HIGH RISK: >160 MG/DL >130 MG/DL *CHILDREN AND ADOLESCENTS REPRESENTS INDIVIDUALA AGED 2-19 YEARS EXCLUSIVE. CHRONIC KIDNEY DISEASE STAGING PER NKF: MALE [...] mL/min Normal 80 and above >32 mL/min NormalNORMAL RANGES Age WBC RBC HGB HCT MCV PLT Adult M 4.1-10.9 4.20-6.30 12.0-18.0 37.0-51.0 80-97 140-440 Adult F 4.1-10.9 4.04-5.48 12.0-18.0 37.0-51.0 80-97 140-440 0- 1 Yr 5.0-20.0 3.9-5.9 15-18 MV: 44 MV: 91 MV: 277 2-9 Yr. 6.0-17.0 3.8-5.4 11-13 MV: 37 MV: 78 MV: 300 10 Yrs. 5.0-13.0 3.8-5.4 12-15 MV: 39 MV: 80 MV: 250 NOTE: * FOR ADULT BLACK MALES AND FEMALES, NORMAL WBC IS 2.9-7.7 K/ML * FOR ADULT BLACK MALES AND FEMALES, NORMAL RBC,HGB, AND HCT IS 5% LESS SOURCE FOR DATA: [employer] DYN 1800 OPERATION MANUAL( AUTOMATED BLOOD COUNTS AND DIFF.) APPENDIX B-3 MCV 103.0 fL 80.0-97.0 Above high normal [facility] ([facility] CLASSIFICATION CHOLESTEROL FO R ADULTS CHILDREN/ADOLESCENTS* DESIRABLE: <200 MG/DL <170 MG/DL BORDER-LINE HIGH RISK: 200-239 MG/DL 170-199 MG/DL HIGH RISK: >240 MG/DL >200 MG/DL CLASS. FOR PRIMARY LDL CHOL PREVENTION: LDL CHOL-CHILD/ADOLESCENTS* DESIRABLE: <130 MG/DL <110 MG/DL BORDERLINE-HIGH RISK: 130-159 MG/DL 110-129 MG/DL HIGH RISK: >160 MG/DL >130 MG/DL *CHILDREN AND ADOLESCENTS REPRESENTS INDIVIDUALA AGED 2-19 YEARS EXCLUSIVE. CHRONIC KIDNEY DISEASE STAGING PER NKF: MALE [...] mL/min Normal 80 and above >32 mL/min NormalNORMAL RANGES Age WBC RBC HGB HCT MCV PLT Adult M 4.1-10.9 4.20-6.30 12.0-18.0 37.0-51.0 80-97 140-440 Adult F 4.1-10.9 4.04-5.48 12.0-18.0 37.0-51.0 80-97 140-440 0- 1 Yr 5.0-20.0 3.9-5.9 15-18 MV: 44 MV: 91 MV: 277 2-9 Yr. 6.0-17.0 3.8-5.4 11-13 MV: 37 MV: 78 MV: 300 10 Yrs. 5.0-13.0 3.8-5.4 12-15 MV: 39 MV: 80 MV: 250 NOTE: * FOR ADULT BLACK MALES AND FEMALES, NORMAL WBC IS 2.9-7.7 K/ML * FOR ADULT BLACK MALES AND FEMALES, NORMAL RBC,HGB, AND HCT IS 5% LESS SOURCE FOR DATA: [employer] DYN 1800 OPERATION MANUAL( AUTOMATED BLOOD COUNTS AND DIFF.) APPENDIX B-3 MCH 32.9 pg 26.0-32.0 Above high normal [facility] ([facility] CLASSIFICATION CHOLESTEROL FO R ADULTS CHILDREN/ADOLESCENTS* DESIRABLE: <200 MG/DL <170 MG/DL BORDER-LINE HIGH RISK: 200-239 MG/DL 170-199 MG/DL HIGH RISK: >240 MG/DL >200 MG/DL CLASS. FOR PRIMARY LDL CHOL PREVENTION: LDL CHOL-CHILD/ADOLESCENTS* DESIRABLE: <130 MG/DL <110 MG/DL BORDERLINE-HIGH RISK: 130-159 MG/DL 110-129 MG/DL HIGH RISK: >160 MG/DL >130 MG/DL *CHILDREN AND ADOLESCENTS REPRESENTS INDIVIDUALA AGED 2-19 YEARS EXCLUSIVE. CHRONIC KIDNEY DISEASE STAGING PER NKF: MALE [...] mL/min Normal 80 and above >32 mL/min NormalNORMAL RANGES Age WBC RBC HGB HCT MCV PLT Adult M 4.1-10.9 4.20-6.30 12.0-18.0 37.0-51.0 80-97 140-440 Adult F 4.1-10.9 4.04-5.48 12.0-18.0 37.0-51.0 80-97 140-440 0- 1 Yr 5.0-20.0 3.9-5.9 15-18 MV: 44 MV: 91 MV: 277 2-9 Yr. 6.0-17.0 3.8-5.4 11-13 MV: 37 MV: 78 MV: 300 10 Yrs. 5.0-13.0 3.8-5.4 12-15 MV: 39 MV: 80 MV: 250 NOTE: * FOR ADULT BLACK MALES AND FEMALES, NORMAL WBC IS 2.9-7.7 K/ML * FOR ADULT BLACK MALES AND FEMALES, NORMAL RBC,HGB, AND HCT IS 5% LESS SOURCE FOR DATA: [employer] DYN 1800 OPERATION MANUAL( AUTOMATED BLOOD COUNTS AND DIFF.) APPENDIX B-3 HCT 33.8 % 37.0-51.0 Below low normal [facility] ( [facility] CLASSIFICATION CHOLESTEROL FO R ADULTS CHILDREN/ADOLESCENTS* DESIRABLE: <200 MG/DL <170 MG/DL BORDER-LINE HIGH RISK: 200-239 MG/DL 170-199 MG/DL HIGH RISK: >240 MG/DL >200 MG/DL CLASS. FOR PRIMARY LDL CHOL PREVENTION: LDL CHOL-CHILD/ADOLESCENTS* DESIRABLE: <130 MG/DL <110 MG/DL BORDERLINE-HIGH RISK: 130-159 MG/DL 110-129 MG/DL HIGH RISK: >160 MG/DL >130 MG/DL *CHILDREN AND ADOLESCENTS REPRESENTS INDIVIDUALA AGED 2-19 YEARS EXCLUSIVE. CHRONIC KIDNEY DISEASE STAGING PER NKF: MALE [...] mL/min Normal 80 and above >32 mL/min NormalNORMAL RANGES Age WBC RBC HGB HCT MCV PLT Adult M 4.1-10.9 4.20-6.30 12.0-18.0 37.0-51.0 80-97 140-440 Adult F 4.1-10.9 4.04-5.48 12.0-18.0 37.0-51.0 80-97 140-440 0- 1 Yr 5.0-20.0 3.9-5.9 15-18 MV: 44 MV: 91 MV: 277 2-9 Yr. 6.0-17.0 3.8-5.4 11-13 MV: 37 MV: 78 MV: 300 10 Yrs. 5.0-13.0 3.8-5.4 12-15 MV: 39 MV: 80 MV: 250 NOTE: * FOR ADULT BLACK MALES AND FEMALES, NORMAL WBC IS 2.9-7.7 K/ML * FOR ADULT BLACK MALES AND FEMALES, NORMAL RBC,HGB, AND HCT IS 5% LESS SOURCE FOR DATA: [employer] 1800 OPERATION MANUAL( AUTOMATED BLOOD COUNTS AND DIFF.) APPENDIX B-3 PLT 242 10E3/uL 140-[address] [facility] ([facility] CLASSIFICATION CHOLESTEROL FO R ADULTS CHILDREN/ADOLESCENTS* DESIRABLE: <200 MG/DL <170 MG/DL BORDER-LINE HIGH RISK: 200-239 MG/DL 170-199 MG/DL HIGH RISK: >240 MG/DL >200 MG/DL CLASS. FOR PRIMARY LDL CHOL PREVENTION: LDL CHOL-CHILD/ADOLESCENTS* DESIRABLE: <130 MG/DL <110 MG/DL BORDERLINE-HIGH RISK: 130-159 MG/DL 110-129 MG/DL HIGH RISK: >160 MG/DL >130 MG/DL *CHILDREN AND ADOLESCENTS REPRESENTS INDIVIDUALA AGED 2-19 YEARS EXCLUSIVE. CHRONIC KIDNEY DISEASE STAGING PER NKF: MALE [...] mL/min Normal 80 and above >32 mL/min NormalNORMAL RANGES Age WBC RBC HGB HCT MCV PLT Adult M 4.1-10.9 4.20-6.30 12.0-18.0 37.0-51.0 80-97 140-440 Adult F 4.1-10.9 4.04-5.48 12.0-18.0 37.0-51.0 80-97 140-440 0- 1 Yr 5.0-20.0 3.9-5.9 15-18 MV: 44 MV: 91 MV: 277 2-9 Yr. 6.0-17.0 3.8-5.4 11-13 MV: 37 MV: 78 MV: 300 10 Yrs. 5.0-13.0 3.8-5.4 12-15 MV: 39 MV: 80 MV: 250 NOTE: * FOR ADULT BLACK MALES AND FEMALES, NORMAL WBC IS 2.9-7.7 K/ML * FOR ADULT BLACK MALES AND FEMALES, NORMAL RBC,HGB, AND HCT IS 5% LESS SOURCE FOR DATA: [employer] DYN 1800 OPERATION MANUAL( AUTOMATED BLOOD COUNTS AND DIFF.) APPENDIX B-3 Lym% 14.4 % 10.0-58.5 [facility] ([facility] CLASSIFICATION CHOLESTEROL FO R ADULTS CHILDREN/ADOLESCENTS* DESIRABLE: <200 MG/DL <170 MG/DL BORDER-LINE HIGH RISK: 200-239 MG/DL 170-199 MG/DL HIGH RISK: >240 MG/DL >200 MG/DL CLASS. FOR PRIMARY LDL CHOL PREVENTION: LDL CHOL-CHILD/ADOLESCENTS* DESIRABLE: <130 MG/DL <110 MG/DL BORDERLINE-HIGH RISK: 130-159 MG/DL 110-129 MG/DL HIGH RISK: >160 MG/DL >130 MG/DL *CHILDREN AND ADOLESCENTS REPRESENTS INDIVIDUALA AGED 2-19 YEARS EXCLUSIVE. CHRONIC KIDNEY DISEASE STAGING PER NKF: MALE [...] mL/min Normal 80 and above >32 mL/min NormalNORMAL RANGES Age WBC RBC HGB HCT MCV PLT Adult M 4.1-10.9 4.20-6.30 12.0-18.0 37.0-51.0 80-97 140-440 Adult F 4.1-10.9 4.04-5.48 12.0-18.0 37.0-51.0 80-97 140-440 0- 1 Yr 5.0-20.0 3.9-5.9 15-18 MV: 44 MV: 91 MV: 277 2-9 Yr. 6.0-17.0 3.8-5.4 11-13 MV: 37 MV: 78 MV: 300 10 Yrs. 5.0-13.0 3.8-5.4 12-15 MV: 39 MV: 80 MV: 250 NOTE: * FOR ADULT BLACK MALES AND FEMALES, NORMAL WBC IS 2.9-7.7 K/ML * FOR ADULT BLACK MALES AND FEMALES, NORMAL RBC,HGB, AND HCT IS 5% LESS SOURCE FOR DATA: [employer] DYN 1800 OPERATION MANUAL( AUTOMATED BLOOD COUNTS AND DIFF.) APPENDIX B-3 RDW-CV 14.4 % 11.5-14.5 [facility] CLASSIFICATION CHOLESTEROL FO R ADULTS CHILDREN/ADOLESCENTS* DESIRABLE: <200 MG/DL <170 MG/DL BORDER-LINE HIGH RISK: 200-239 MG/DL 170-199 MG/DL HIGH RISK: >240 MG/DL >200 MG/DL CLASS. FOR PRIMARY LDL CHOL PREVENTION: LDL CHOL-CHILD/ADOLESCENTS* DESIRABLE: <130 MG/DL <110 MG/DL BORDERLINE-HIGH RISK: 130-159 MG/DL 110-129 MG/DL HIGH RISK: >160 MG/DL >130 MG/DL *CHILDREN AND ADOLESCENTS REPRESENTS INDIVIDUALA AGED 2-19 YEARS EXCLUSIVE. CHRONIC KIDNEY DISEASE STAGING PER NKF: MALE [...] mL/min Normal 80 and above >32 mL/min NormalNORMAL RANGES Age WBC RBC HGB HCT MCV PLT Adult M 4.1-10.9 4.20-6.30 12.0-18.0 37.0-51.0 80-97 140-440 Adult F 4.1-10.9 4.04-5.48 12.0-18.0 37.0-51.0 80-97 140-440 0- 1 Yr 5.0-20.0 3.9-5.9 15-18 MV: 44 MV: 91 MV: 277 2-9 Yr. 6.0-17.0 3.8-5.4 11-13 MV: 37 MV: 78 MV: 300 10 Yrs. 5.0-13.0 3.8-5.4 12-15 MV: 39 MV: 80 MV: 250 NOTE: * FOR ADULT BLACK MALES AND FEMALES, NORMAL WBC IS 2.9-7.7 K/ML * FOR ADULT BLACK MALES AND FEMALES, NORMAL RBC,HGB, AND HCT IS 5% LESS SOURCE FOR DATA: [employer] DYN 1800 OPERATION MANUAL( AUTOMATED BLOOD COUNTS AND DIFF.) APPENDIX B-3 MXD% 12.3 % 0.1-24.0 [facility] ([facility] CLASSIFICATION CHOLESTEROL FO R ADULTS CHILDREN/ADOLESCENTS* DESIRABLE: <200 MG/DL <170 MG/DL BORDER-LINE HIGH RISK: 200-239 MG/DL 170-199 MG/DL HIGH RISK: >240 MG/DL >200 MG/DL CLASS. FOR PRIMARY LDL CHOL PREVENTION: LDL CHOL-CHILD/ADOLESCENTS* DESIRABLE: <130 MG/DL <110 MG/DL BORDERLINE-HIGH RISK: 130-159 MG/DL 110-129 MG/DL HIGH RISK: >160 MG/DL >130 MG/DL *CHILDREN AND ADOLESCENTS REPRESENTS INDIVIDUALA AGED 2-19 YEARS EXCLUSIVE. CHRONIC KIDNEY DISEASE STAGING PER NKF: MALE [...] mL/min Normal 80 and above >32 mL/min NormalNORMAL RANGES Age WBC RBC HGB HCT MCV PLT Adult M 4.1-10.9 4.20-6.30 12.0-18.0 37.0-51.0 80-97 140-440 Adult F 4.1-10.9 4.04-5.48 12.0-18.0 37.0-51.0 80-97 140-440 0- 1 Yr 5.0-20.0 3.9-5.9 15-18 MV: 44 MV: 91 MV: 277 2-9 Yr. 6.0-17.0 3.8-5.4 11-13 MV: 37 MV: 78 MV: 300 10 Yrs. 5.0-13.0 3.8-5.4 12-15 MV: 39 MV: 80 MV: 250 NOTE: * FOR ADULT BLACK MALES AND FEMALES, NORMAL WBC IS 2.9-7.7 K/ML * FOR ADULT BLACK MALES AND FEMALES, NORMAL RBC,HGB, AND HCT IS 5% LESS SOURCE FOR DATA: [employer] DYN 1800 OPERATION MANUAL( AUTOMATED BLOOD COUNTS AND DIFF.) APPENDIX B-3 Lym# 0.8 10E3/uL 0.6-4.1 [facility] ([facility] CLASSIFICATION CHOLESTEROL FO R ADULTS CHILDREN/ADOLESCENTS* DESIRABLE: <200 MG/DL <170 MG/DL BORDER-LINE HIGH RISK: 200-239 MG/DL 170-199 MG/DL HIGH RISK: >240 MG/DL >200 MG/DL CLASS. FOR PRIMARY LDL CHOL PREVENTION: LDL CHOL-CHILD/ADOLESCENTS* DESIRABLE: <130 MG/DL <110 MG/DL BORDERLINE-HIGH RISK: 130-159 MG/DL 110-129 MG/DL HIGH RISK: >160 MG/DL >130 MG/DL *CHILDREN AND ADOLESCENTS REPRESENTS INDIVIDUALA AGED 2-19 YEARS EXCLUSIVE. CHRONIC KIDNEY DISEASE STAGING PER NKF: MALE [...] mL/min Normal 80 and above >32 mL/min NormalNORMAL RANGES Age WBC RBC HGB HCT MCV PLT Adult M 4.1-10.9 4.20-6.30 12.0-18.0 37.0-51.0 80-97 140-440 Adult F 4.1-10.9 4.04-5.48 12.0-18.0 37.0-51.0 80-97 140-440 0- 1 Yr 5.0-20.0 3.9-5.9 15-18 MV: 44 MV: 91 MV: 277 2-9 Yr. 6.0-17.0 3.8-5.4 11-13 MV: 37 MV: 78 MV: 300 10 Yrs. 5.0-13.0 3.8-5.4 12-15 MV: 39 MV: 80 MV: 250 NOTE: * FOR ADULT BLACK MALES AND FEMALES, NORMAL WBC IS 2.9-7.7 K/ML * FOR ADULT BLACK MALES AND FEMALES, NORMAL RBC,HGB, AND HCT IS 5% LESS SOURCE FOR DATA: [employer] 1800 OPERATION MANUAL( AUTOMATED BLOOD COUNTS AND DIFF.) APPENDIX B-3 Neut% 73.3 % 37.0-92.0 [facility] ([facility] CLASSIFICATION CHOLESTEROL FO R ADULTS CHILDREN/ADOLESCENTS* DESIRABLE: <200 MG/DL <170 MG/DL BORDER-LINE HIGH RISK: 200-239 MG/DL 170-199 MG/DL HIGH RISK: >240 MG/DL >200 MG/DL CLASS. FOR PRIMARY LDL CHOL PREVENTION: LDL CHOL-CHILD/ADOLESCENTS* DESIRABLE: <130 MG/DL <110 MG/DL BORDERLINE-HIGH RISK: 130-159 MG/DL 110-129 MG/DL HIGH RISK: >160 MG/DL >130 MG/DL *CHILDREN AND ADOLESCENTS REPRESENTS INDIVIDUALA AGED 2-19 YEARS EXCLUSIVE. CHRONIC KIDNEY DISEASE STAGING PER NKF: MALE [...] mL/min Normal 80 and above >32 mL/min NormalNORMAL RANGES Age WBC RBC HGB HCT MCV PLT Adult M 4.1-10.9 4.20-6.30 12.0-18.0 37.0-51.0 80-97 140-440 Adult F 4.1-10.9 4.04-5.48 12.0-18.0 37.0-51.0 80-97 140-440 0- 1 Yr 5.0-20.0 3.9-5.9 15-18 MV: 44 MV: 91 MV: 277 2-9 Yr. 6.0-17.0 3.8-5.4 11-13 MV: 37 MV: 78 MV: 300 10 Yrs. 5.0-13.0 3.8-5.4 12-15 MV: 39 MV: 80 MV: 250 NOTE: * FOR ADULT BLACK MALES AND FEMALES, NORMAL WBC IS 2.9-7.7 K/ML * FOR ADULT BLACK MALES AND FEMALES, NORMAL RBC,HGB, AND HCT IS 5% LESS SOURCE FOR DATA: TOMMY DYN 1800 OPERATION MANUAL( AUTOMATED BLOOD COUNTS AND DIFF.) APPENDIX B-3 MPV 10.2 fL 9.0-13.0 [facility] ([facility] CLASSIFICATION CHOLESTEROL FO R ADULTS CHILDREN/ADOLESCENTS* DESIRABLE: <200 MG/DL <170 MG/DL BORDER-LINE HIGH RISK: 200-239 MG/DL 170-199 MG/DL HIGH RISK: >240 MG/DL >200 MG/DL CLASS. FOR PRIMARY LDL CHOL PREVENTION: LDL CHOL-CHILD/ADOLESCENTS* DESIRABLE: <130 MG/DL <110 MG/DL BORDERLINE-HIGH RISK: 130-159 MG/DL 110-129 MG/DL HIGH RISK: >160 MG/DL >130 MG/DL *CHILDREN AND ADOLESCENTS REPRESENTS INDIVIDUALA AGED 2-19 YEARS EXCLUSIVE. CHRONIC KIDNEY DISEASE STAGING PER NKF: MALE [...] mL/min Normal 80 and above >32 mL/min NormalNORMAL RANGES Age WBC RBC HGB HCT MCV PLT Adult M 4.1-10.9 4.20-6.30 12.0-18.0 37.0-51.0 80-97 140-440 Adult F 4.1-10.9 4.04-5.48 12.0-18.0 37.0-51.0 80-97 140-440 0- 1 Yr 5.0-20.0 3.9-5.9 15-18 MV: 44 MV: 91 MV: 277 2-9 Yr. 6.0-17.0 3.8-5.4 11-13 MV: 37 MV: 78 MV: 300 10 Yrs. 5.0-13.0 3.8-5.4 12-15 MV: 39 MV: 80 MV: 250 NOTE: * FOR ADULT BLACK MALES AND FEMALES, NORMAL WBC IS 2.9-7.7 K/ML * FOR ADULT BLACK MALES AND FEMALES, NORMAL RBC,HGB, AND HCT IS 5% LESS SOURCE FOR DATA: LegUP 1800 OPERATION MANUAL( AUTOMATED BLOOD COUNTS AND DIFF.) APPENDIX B-3 Neut# 4.4 % 2.0-7.[address] [facility] ([facility] CLASSIFICATION CHOLESTEROL FO R ADULTS CHILDREN/ADOLESCENTS* DESIRABLE: <200 MG/DL <170 MG/DL BORDER-LINE HIGH RISK: 200-239 MG/DL 170-199 MG/DL HIGH RISK: >240 MG/DL >200 MG/DL CLASS. FOR PRIMARY LDL CHOL PREVENTION: LDL CHOL-CHILD/ADOLESCENTS* DESIRABLE: <130 MG/DL <110 MG/DL BORDERLINE-HIGH RISK: 130-159 MG/DL 110-129 MG/DL HIGH RISK: >160 MG/DL >130 MG/DL *CHILDREN AND ADOLESCENTS REPRESENTS INDIVIDUALA AGED 2-19 YEARS EXCLUSIVE. CHRONIC KIDNEY DISEASE STAGING PER NKF: MALE [...] mL/min Normal 80 and above >32 mL/min NormalNORMAL RANGES Age WBC RBC HGB HCT MCV PLT Adult M 4.1-10.9 4.20-6.30 12.0-18.0 37.0-51.0 80-97 140-440 Adult F 4.1-10.9 4.04-5.48 12.0-18.0 37.0-51.0 80-97 140-440 0- 1 Yr 5.0-20.0 3.9-5.9 15-18 MV: 44 MV: 91 MV: 277 2-9 Yr. 6.0-17.0 3.8-5.4 11-13 MV: 37 MV: 78 MV: 300 10 Yrs. 5.0-13.0 3.8-5.4 12-15 MV: 39 MV: 80 MV: 250 NOTE: * FOR ADULT BLACK MALES AND FEMALES, NORMAL WBC IS 2.9-7.7 K/ML * FOR ADULT BLACK MALES AND FEMALES, NORMAL RBC,HGB, AND HCT IS 5% LESS SOURCE FOR DATA: LegUP 1800 OPERATION MANUAL( AUTOMATED BLOOD COUNTS AND DIFF.) APPENDIX B-3 MXD# 0.7 10E3/uL 0.0-1.8 [facility] ([facility] CLASSIFICATION CHOLESTEROL FO R ADULTS CHILDREN/ADOLESCENTS* DESIRABLE: <200 MG/DL <170 MG/DL BORDER-LINE HIGH RISK: 200-239 MG/DL 170-199 MG/DL HIGH RISK: >240 MG/DL >200 MG/DL CLASS. FOR PRIMARY LDL CHOL PREVENTION: LDL CHOL-CHILD/ADOLESCENTS* DESIRABLE: <130 MG/DL <110 MG/DL BORDERLINE-HIGH RISK: 130-159 MG/DL 110-129 MG/DL HIGH RISK: >160 MG/DL >130 MG/DL *CHILDREN AND ADOLESCENTS REPRESENTS INDIVIDUALA AGED 2-19 YEARS EXCLUSIVE. CHRONIC KIDNEY DISEASE STAGING PER NKF: MALE [...] mL/min Normal 80 and above >32 mL/min NormalNORMAL RANGES Age WBC RBC HGB HCT MCV PLT Adult M 4.1-10.9 4.20-6.30 12.0-18.0 37.0-51.0 80-97 140-440 Adult F 4.1-10.9 4.04-5.48 12.0-18.0 37.0-51.0 80-97 140-440 0- 1 Yr 5.0-20.0 3.9-5.9 15-18 MV: 44 MV: 91 MV: 277 2-9 Yr. 6.0-17.0 3.8-5.4 11-13 MV: 37 MV: 78 MV: 300 10 Yrs. 5.0-13.0 3.8-5.4 12-15 MV: 39 MV: 80 MV: 250 NOTE: * FOR ADULT BLACK MALES AND FEMALES, NORMAL WBC IS 2.9-7.7 K/ML * FOR ADULT BLACK MALES AND FEMALES, NORMAL RBC,HGB, AND HCT IS 5% LESS SOURCE FOR DATA: TOMMY DYN 1800 OPERATION MANUAL( AUTOMATED BLOOD COUNTS AND DIFF.) APPENDIX B-3 ID Date Data Source [id number] 10/29/2019 10:30:00 AM EDT [facility] ([facility] Name Value Range Interpretation Code Description Data Olimpia rce(s) Supporting Document(s) Thyrotropin [Units/volume] in Serum or Plasma 18.500 uIU/ML 0. 358-3.740 Above high normal [facility] ([facility] ) ID Date Data Source [id number] 09/27/2019 05:14:24 PM EST [facility] Name Value Range Interpretation Code Description Data Olimpia rce(s) Supporting Document(s) &PDF [facility] VDYKEw7pQdWNYtQf73/PAJseHFJkc8HdCNrfHPz7YRfyFFEqH7RhxGcpLGSYSLuOLZSXQHBzQJrAI7pF lYX [file] ICAgICAgICAgICAgICAgICAgICAgICAgICAgICAgICAgICAgICAgICAgICAgICAgICAgICAgICAgICAg YXBcEH6MBTYmCLBuBBHeGPNqWIYlHNOhLVLbOBGrGY AgICAgICAgICAgICAgICAgICAgICAgICAgICAgICAgICAgICAgICAgICAgICAgICAgICAgICAgICAgIC XyEOOpZMJoXELqSUYvXJ8HRQDdNQHsPPZaAINkZJIoXBNcUVIsUHGmJQLuHZDqKNIxWEKjIBFdYNSbNT AgICAgICAgICAgICAgICAgICAgICAgICAgICAgICAg VJGvZUUlDSPyMRDtJUEbQYClWKNlDBHjFS0EXWGzLAWzMYPoOKRfMCDmREIlRLUvFKFyAHOtIERrRUMx ICAgICAgICAgICAgICAgICAgICAgICAgICAgICAgICAgICAgICAgICAgICAgICAgICAgICAgICAgICAg BEPaCOHjCH0KWMKdJLQeUGJtNBBiDXEzWIEeTPPzBZ AgICAgICAgICAgICAgICAgICAgICAgICAgICAgICAgICAgICAgICAgICAgICAgICAgICAgICAgICAgIC YcPDKeKBReNSNpLOLuRUOqUI5YJERbCALhQKQlYCFyNLRsGCQcSHDoCENxFUYdGQFgRSZzFXJuIHHpRU AgICAgICAgICAgICAgICAgICAgICAgICAgICAgICAg GCAkKIFfWUNhGHDrDMVdAJYvRFMnAYTfYADhRC1ZXFZyOWWoULNdEFIzGHCzGDSfKNQdVVQaFAZlIPWq ICAgICAgICAgICAgICAgICAgICAgICAgICAgICAgICAgICAgICAgICAgICAgICAgICAgICAgICAgICAg ULBfLMUqFEVbFW9XUTDrQUMbYHPgDBPzINErDTYjXB AgICAgICAgICAgICAgICAgICAgICAgICAgICAgICAgICAgICAgICAgICAgICAgICAgICAgICAgICAgIC ToOQKfQZSaTIDlJTSlWCLyMBQpET1DNFLzPFYtDIGtTVXqJXVlOLGqGCLrQJUsWDTdPMIpUFOxFQWxHP AgICAgICAgICAgICAgICAgICAgICAgICAgICAgICAg BSKkYVNzIHAtVFKaBIDuSTKtQJBkGKWvNDOcJEDbTP4KRTWxJJFtMKOzOFTpEBTvLEOgICPaHLUnZGBj ICAgICAgICAgICAgICAgICAgICAgICAgICAgICAgICAgICAgICAgICAgICAgICAgICAgICAgICAgICAg GRWeNXBjQTMpEOUzVI4SJX07hLPqi8Z1PZYhGS0ves c/Yv3AVIbtxpSbiZIeRH1APyKbAG2mkd7RXqFgCR3dch1OIRxGZvDtY2B6fVXqEMHxLKVYIuRnU10zTU eyCl65CHytNMIvFhAoJVs3Ux0ZImPfM0shFJThHoR0XGJnNkChWHasIS5Go7JcdGPoPPh+Np0MVW0iy6 VgMRckBzHzAD6mme7TLXxTIqVzQ5L7lTCiV2G7MYap Bc0GXBLnYNGiLXDdXDFNFIikUT9XYM3dxaW1GY4KqHXxBFJrNBXdcGLoTKy8R05frASuIAxwJF1UEBL+ Mallory+Ik4SUAAsIYMxSAEzEiBgWQEWVbNgV25ikMLcDHGtNJA8APIsSz3KLELzX4WpbqJdeStiwgSbCDVs HTRWYK2FWGxsjqTtzQIniZxuXL83hWliBT2WLp5AAa HuLU5lju3SwBFwDl9XEODnJg7CRFBdOJRySKRnGQF2XAMaUtBeDOpzKTVxPMIzRQH5UYKpZIDxKC6SVg QzGTOlQMIsGNKpRZScNLZinv9TEARoRSNuLMdbEjBuQLIxBDIrDVvnKMDlNMZeKKo2WXNrXPAqWJ8UEw KeTPAuFCY4IVXcXWGiRQJmhn4PZTCnQNWkFxq2ZzBm CWSeLDWkRYbdYCWcFINoLcI8VUJkYDWzZS8MHbIlGQTyOGV0QUSjJTXbKYTour9CZXFyLTFpNRVvRQGm BYDfSWCqCNqvRVEkSFY1SDxmGSNuCNUhDN7VCwIeHGBjHTAkWYxkFFGmYSXaqx7FLDIkYQZeXOU1CAEt IXFzHELtQYolHMEqLFZyKCVtIXBnFRBiWY7DPiXoSH HfMBIqCwcxHOIsRDKemu9FFMJaMIIrZOM3ZqXgLEBbNLUaKEzwAVCqNAI5JJEpREAvOCYkYZ5DQyFuVI paYPNWJbq4NKpoE1x3PULkAn9TQ3Lff4LkSYUaKHRWFPipTL6ojyHyEXOnVh9XF8hBLrxaQQh7TuE1FY LdYrGuMICkCCTfZDDuJWf8E5C5UDHkZv7mIBU4QEcs WmbxSoUjCjU1TZL4AtAkTJUgTPViXfs6BwV2YkTzZU2ELu0XZjD0WJZ9mMJcBj2ICPKeFDgSTnIlAM5N DQo= ID Date Data Source [id number] 09/17/2019 10:35:00 AM EST [facility] ([facility] Name Value Range Interpretation Code Description Data Olimpia rce(s) Supporting Document(s) Thyrotropin [Units/volume] in Serum or Plasma 33.000 uIU/ML 0. 358-3.740 Above high normal [facility] ([facility] ID Date Data Source [id number] 09/17/2019 10:35:00 AM EST [facility] ([facility] Name Value Range Interpretation Code Description Data Olimpia rce(s) Supporting Document(s) Blood Urea Nitrogen 71 mg/dL 7-18 Above high normal [facility] ([facility] Glucose, Fasting 245 mg/dL 70-100 Above high normal [facility] ([facility] Creatinine For GFR 1.74 mg/dL 0.55-1.30 Above high normal [facility] ([facility] Potassium Serum 4.4 meq/L 3.5-5.1 Normal (applies to non-numeric results) [facility] ([facility] Sodium Level 139 meq/L 136-145 Normal (applies to non-numeric res ults) [facility] ([facility] Glomerular Filtration Rate 29.8 Below low normal [facility] ([facility] <content>Units are mL/min/1.73 m2</content>
<content></content>
<content>Chronic Kidney Disease Staging per NKF:</content>
<content></content>
<content>Stage I & II GFR >=60 Normal to Mildly Decreased</content>
<content>Stage III GFR 30- 59 Moderately Decreased</content>
<content>Stage IV GFR 15-29 Severely Decreased</content>
<content>Stage V GFR <15 Very Little GFR Left</content>
<content>ESRD GFR <15 on ORGANIC CHEMISTRY TEACHER</content>
<content></content> Chloride Level 103 meq/L 98-107 Normal (applies to non-numeric r esults) [facility] ([facility] Carbon Dioxide Level 26 meq/L 21-32 Normal (applies to non-num tejas results) [facility] ([facility] Calcium Level 9.5 mg/dL 8.8-10.2 Normal (applies to non-numeric re sults) [facility] ([facility] Anion Gap 10 meq/L 8-16 Normal (applies to non-numeric resul ts) [facility] ([facility] ID Date Data Source [id number] 08/19/2019 10:09:00 AM EST [facility] ([facility] Name Value Range Interpretation Code Description Data Olimpia rce(s) Supporting Document(s) Hemoglobin A1c/Hemoglobin.total in Blood 6.9 % 4.50-6.20 Above high normal [facility] ([facility] ID Date Data Source [id number] 08/19/2019 10:09:00 AM EST [facility] ([facility] Name Value Range Interpretation Code Description Data Olimpia rce(s) Supporting Document(s) Thyrotropin [Units/volume] in Serum or Plasma 37.176 ulU/mL 0. 60-4.8 Above high normal [facility] ([facility] ) ID Date Data Source [id number] 08/19/2019 10:09:00 AM EST [facility] ([facility] Name Value Range Interpretation Code Description Data Olimpia rce(s) Supporting Document(s) WBC 5.2 10E3/uL 4.1-10.9 [facility] ([facility] CLASSIFICATION CHOLESTEROL FO R ADULTS CHILDREN/ADOLESCENTS* DESIRABLE: <200 MG/DL <170 MG/DL BORDER-LINE HIGH RISK: 200-239 MG/DL 170-199 MG/DL HIGH RISK: >240 MG/DL >200 MG/DL CLASS. FOR PRIMARY LDL CHOL PREVENTION: LDL CHOL-CHILD/ADOLESCENTS* DESIRABLE: <130 MG/DL <110 MG/DL BORDERLINE-HIGH RISK: 130-159 MG/DL 110-129 MG/DL HIGH RISK: >160 MG/DL >130 MG/DL *CHILDREN AND ADOLESCENTS REPRESENTS INDIVIDUALA AGED 2-19 YEARS EXCLUSIVE. CHRONIC KIDNEY DISEASE STAGING PER NKF: MALE [...] mL/min Normal 80 and above >32 mL/min NormalNORMAL RANGES Age WBC RBC HGB HCT MCV PLT Adult M 4.1-10.9 4.20-6.30 12.0-18.0 37.0-51.0 80-97 140-440 Adult F 4.1-10.9 4.04-5.48 12.0-18.0 37.0-51.0 80-97 140-440 0- 1 Yr 5.0-20.0 3.9-5.9 15-18 MV: 44 MV: 91 MV: 277 2-9 Yr. 6.0-17.0 3.8-5.4 11-13 MV: 37 MV: 78 MV: 300 10 Yrs. 5.0-13.0 3.8-5.4 12-15 MV: 39 MV: 80 MV: 250 NOTE: * FOR ADULT BLACK MALES AND FEMALES, NORMAL WBC IS 2.9-7.7 K/ML * FOR ADULT BLACK MALES AND FEMALES, NORMAL RBC,HGB, AND HCT IS 5% LESS SOURCE FOR DATA: LegUP 1800 OPERATION MANUAL( AUTOMATED BLOOD COUNTS AND DIFF.) APPENDIX B-3 RBC 3.54 10E6/uL 4.20-6.30 Below low normal [facility] ([facility] CLASSIFICATION CHOLESTEROL FO R ADULTS CHILDREN/ADOLESCENTS* DESIRABLE: <200 MG/DL <170 MG/DL BORDER-LINE HIGH RISK: 200-239 MG/DL 170-199 MG/DL HIGH RISK: >240 MG/DL >200 MG/DL CLASS. FOR PRIMARY LDL CHOL PREVENTION: LDL CHOL-CHILD/ADOLESCENTS* DESIRABLE: <130 MG/DL <110 MG/DL BORDERLINE-HIGH RISK: 130-159 MG/DL 110-129 MG/DL HIGH RISK: >160 MG/DL >130 MG/DL *CHILDREN AND ADOLESCENTS REPRESENTS INDIVIDUALA AGED 2-19 YEARS EXCLUSIVE. CHRONIC KIDNEY DISEASE STAGING PER NKF: MALE [...] mL/min Normal 80 and above >32 mL/min NormalNORMAL RANGES Age WBC RBC HGB HCT MCV PLT Adult M 4.1-10.9 4.20-6.30 12.0-18.0 37.0-51.0 80-97 140-440 Adult F 4.1-10.9 4.04-5.48 12.0-18.0 37.0-51.0 80-97 140-440 0- 1 Yr 5.0-20.0 3.9-5.9 15-18 MV: 44 MV: 91 MV: 277 2-9 Yr. 6.0-17.0 3.8-5.4 11-13 MV: 37 MV: 78 MV: 300 10 Yrs. 5.0-13.0 3.8-5.4 12-15 MV: 39 MV: 80 MV: 250 NOTE: * FOR ADULT BLACK MALES AND FEMALES, NORMAL WBC IS 2.9-7.7 K/ML * FOR ADULT BLACK MALES AND FEMALES, NORMAL RBC,HGB, AND HCT IS 5% LESS SOURCE FOR DATA: TOMMY DYN 1800 OPERATION MANUAL( AUTOMATED BLOOD COUNTS AND DIFF.) APPENDIX B-3 HGB 11.5 g/dL 12.0-18.0 Below low normal [facility] ( [facility] CLASSIFICATION CHOLESTEROL FO R ADULTS CHILDREN/ADOLESCENTS* DESIRABLE: <200 MG/DL <170 MG/DL BORDER-LINE HIGH RISK: 200-239 MG/DL 170-199 MG/DL HIGH RISK: >240 MG/DL >200 MG/DL CLASS. FOR PRIMARY LDL CHOL PREVENTION: LDL CHOL-CHILD/ADOLESCENTS* DESIRABLE: <130 MG/DL <110 MG/DL BORDERLINE-HIGH RISK: 130-159 MG/DL 110-129 MG/DL HIGH RISK: >160 MG/DL >130 MG/DL *CHILDREN AND ADOLESCENTS REPRESENTS INDIVIDUALA AGED 2-19 YEARS EXCLUSIVE. CHRONIC KIDNEY DISEASE STAGING PER NKF: MALE [...] mL/min Normal 80 and above >32 mL/min NormalNORMAL RANGES Age WBC RBC HGB HCT MCV PLT Adult M 4.1-10.9 4.20-6.30 12.0-18.0 37.0-51.0 80-97 140-440 Adult F 4.1-10.9 4.04-5.48 12.0-18.0 37.0-51.0 80-97 140-440 0- 1 Yr 5.0-20.0 3.9-5.9 15-18 MV: 44 MV: 91 MV: 277 2-9 Yr. 6.0-17.0 3.8-5.4 11-13 MV: 37 MV: 78 MV: 300 10 Yrs. 5.0-13.0 3.8-5.4 12-15 MV: 39 MV: 80 MV: 250 NOTE: * FOR ADULT BLACK MALES AND FEMALES, NORMAL WBC IS 2.9-7.7 K/ML * FOR ADULT BLACK MALES AND FEMALES, NORMAL RBC,HGB, AND HCT IS 5% LESS SOURCE FOR DATA: TOMMY DYN 1800 OPERATION MANUAL( AUTOMATED BLOOD COUNTS AND DIFF.) APPENDIX B-3 HCT 35.3 % 37.0-51.0 Below low normal [facility] ( [facility] CLASSIFICATION CHOLESTEROL FO R ADULTS CHILDREN/ADOLESCENTS* DESIRABLE: <200 MG/DL <170 MG/DL BORDER-LINE HIGH RISK: 200-239 MG/DL 170-199 MG/DL HIGH RISK: >240 MG/DL >200 MG/DL CLASS. FOR PRIMARY LDL CHOL PREVENTION: LDL CHOL-CHILD/ADOLESCENTS* DESIRABLE: <130 MG/DL <110 MG/DL BORDERLINE-HIGH RISK: 130-159 MG/DL 110-129 MG/DL HIGH RISK: >160 MG/DL >130 MG/DL *CHILDREN AND ADOLESCENTS REPRESENTS INDIVIDUALA AGED 2-19 YEARS EXCLUSIVE. CHRONIC KIDNEY DISEASE STAGING PER NKF: MALE [...] mL/min Normal 80 and above >32 mL/min NormalNORMAL RANGES Age WBC RBC HGB HCT MCV PLT Adult M 4.1-10.9 4.20-6.30 12.0-18.0 37.0-51.0 80-97 140-440 Adult F 4.1-10.9 4.04-5.48 12.0-18.0 37.0-51.0 80-97 140-440 0- 1 Yr 5.0-20.0 3.9-5.9 15-18 MV: 44 MV: 91 MV: 277 2-9 Yr. 6.0-17.0 3.8-5.4 11-13 MV: 37 MV: 78 MV: 300 10 Yrs. 5.0-13.0 3.8-5.4 12-15 MV: 39 MV: 80 MV: 250 NOTE: * FOR ADULT BLACK MALES AND FEMALES, NORMAL WBC IS 2.9-7.7 K/ML * FOR ADULT BLACK MALES AND FEMALES, NORMAL RBC,HGB, AND HCT IS 5% LESS SOURCE FOR DATA: LegUP 1800 OPERATION MANUAL( AUTOMATED BLOOD COUNTS AND DIFF.) APPENDIX B-3 MCV 99.7 fL 80.0-97.0 Above high normal [facility] ([facility] CLASSIFICATION CHOLESTEROL FO R ADULTS CHILDREN/ADOLESCENTS* DESIRABLE: <200 MG/DL <170 MG/DL BORDER-LINE HIGH RISK: 200-239 MG/DL 170-199 MG/DL HIGH RISK: >240 MG/DL >200 MG/DL CLASS. FOR PRIMARY LDL CHOL PREVENTION: LDL CHOL-CHILD/ADOLESCENTS* DESIRABLE: <130 MG/DL <110 MG/DL BORDERLINE-HIGH RISK: 130-159 MG/DL 110-129 MG/DL HIGH RISK: >160 MG/DL >130 MG/DL *CHILDREN AND ADOLESCENTS REPRESENTS INDIVIDUALA AGED 2-19 YEARS EXCLUSIVE. CHRONIC KIDNEY DISEASE STAGING PER NKF: MALE [...] mL/min Normal 80 and above >32 mL/min NormalNORMAL RANGES Age WBC RBC HGB HCT MCV PLT Adult M 4.1-10.9 4.20-6.30 12.0-18.0 37.0-51.0 80-97 140-440 Adult F 4.1-10.9 4.04-5.48 12.0-18.0 37.0-51.0 80-97 140-440 0- 1 Yr 5.0-20.0 3.9-5.9 15-18 MV: 44 MV: 91 MV: 277 2-9 Yr. 6.0-17.0 3.8-5.4 11-13 MV: 37 MV: 78 MV: 300 10 Yrs. 5.0-13.0 3.8-5.4 12-15 MV: 39 MV: 80 MV: 250 NOTE: * FOR ADULT BLACK MALES AND FEMALES, NORMAL WBC IS 2.9-7.7 K/ML * FOR ADULT BLACK MALES AND FEMALES, NORMAL RBC,HGB, AND HCT IS 5% LESS SOURCE FOR DATA: TOMMY DYN 1800 OPERATION MANUAL( AUTOMATED BLOOD COUNTS AND DIFF.) APPENDIX B-3 MCH 32.5 pg 26.0-32.0 Above high normal [facility] ([facility] CLASSIFICATION CHOLESTEROL FO R ADULTS CHILDREN/ADOLESCENTS* DESIRABLE: <200 MG/DL <170 MG/DL BORDER-LINE HIGH RISK: 200-239 MG/DL 170-199 MG/DL HIGH RISK: >240 MG/DL >200 MG/DL CLASS. FOR PRIMARY LDL CHOL PREVENTION: LDL CHOL-CHILD/ADOLESCENTS* DESIRABLE: <130 MG/DL <110 MG/DL BORDERLINE-HIGH RISK: 130-159 MG/DL 110-129 MG/DL HIGH RISK: >160 MG/DL >130 MG/DL *CHILDREN AND ADOLESCENTS REPRESENTS INDIVIDUALA AGED 2-19 YEARS EXCLUSIVE. CHRONIC KIDNEY DISEASE STAGING PER NKF: MALE [...] mL/min Normal 80 and above >32 mL/min NormalNORMAL RANGES Age WBC RBC HGB HCT MCV PLT Adult M 4.1-10.9 4.20-6.30 12.0-18.0 37.0-51.0 80-97 140-440 Adult F 4.1-10.9 4.04-5.48 12.0-18.0 37.0-51.0 80-97 140-440 0- 1 Yr 5.0-20.0 3.9-5.9 15-18 MV: 44 MV: 91 MV: 277 2-9 Yr. 6.0-17.0 3.8-5.4 11-13 MV: 37 MV: 78 MV: 300 10 Yrs. 5.0-13.0 3.8-5.4 12-15 MV: 39 MV: 80 MV: 250 NOTE: * FOR ADULT BLACK MALES AND FEMALES, NORMAL WBC IS 2.9-7.7 K/ML * FOR ADULT BLACK MALES AND FEMALES, NORMAL RBC,HGB, AND HCT IS 5% LESS SOURCE FOR DATA: TOMMY DYN 1800 OPERATION MANUAL( AUTOMATED BLOOD COUNTS AND DIFF.) APPENDIX B-3 MCHC 32.6 g/dL 31.0-36.0 [facility] CLASSIFICATION CHOLESTEROL FO R ADULTS CHILDREN/ADOLESCENTS* DESIRABLE: <200 MG/DL <170 MG/DL BORDER-LINE HIGH RISK: 200-239 MG/DL 170-199 MG/DL HIGH RISK: >240 MG/DL >200 MG/DL CLASS. FOR PRIMARY LDL CHOL PREVENTION: LDL CHOL-CHILD/ADOLESCENTS* DESIRABLE: <130 MG/DL <110 MG/DL BORDERLINE-HIGH RISK: 130-159 MG/DL 110-129 MG/DL HIGH RISK: >160 MG/DL >130 MG/DL *CHILDREN AND ADOLESCENTS REPRESENTS INDIVIDUALA AGED 2-19 YEARS EXCLUSIVE. CHRONIC KIDNEY DISEASE STAGING PER NKF: MALE [...] mL/min Normal 80 and above >32 mL/min NormalNORMAL RANGES Age WBC RBC HGB HCT MCV PLT Adult M 4.1-10.9 4.20-6.30 12.0-18.0 37.0-51.0 80-97 140-440 Adult F 4.1-10.9 4.04-5.48 12.0-18.0 37.0-51.0 80-97 140-440 0- 1 Yr 5.0-20.0 3.9-5.9 15-18 MV: 44 MV: 91 MV: 277 2-9 Yr. 6.0-17.0 3.8-5.4 11-13 MV: 37 MV: 78 MV: 300 10 Yrs. 5.0-13.0 3.8-5.4 12-15 MV: 39 MV: 80 MV: 250 NOTE: * FOR ADULT BLACK MALES AND FEMALES, NORMAL WBC IS 2.9-7.7 K/ML * FOR ADULT BLACK MALES AND FEMALES, NORMAL RBC,HGB, AND HCT IS 5% LESS SOURCE FOR DATA: [employer] DYN 1800 OPERATION MANUAL( AUTOMATED BLOOD COUNTS AND DIFF.) APPENDIX B-3 RDW-CV 17.3 % 11.5-14.5 Above high normal [facility] ([facility] CLASSIFICATION CHOLESTEROL FO R ADULTS CHILDREN/ADOLESCENTS* DESIRABLE: <200 MG/DL <170 MG/DL BORDER-LINE HIGH RISK: 200-239 MG/DL 170-199 MG/DL HIGH RISK: >240 MG/DL >200 MG/DL CLASS. FOR PRIMARY LDL CHOL PREVENTION: LDL CHOL-CHILD/ADOLESCENTS* DESIRABLE: <130 MG/DL <110 MG/DL BORDERLINE-HIGH RISK: 130-159 MG/DL 110-129 MG/DL HIGH RISK: >160 MG/DL >130 MG/DL *CHILDREN AND ADOLESCENTS REPRESENTS INDIVIDUALA AGED 2-19 YEARS EXCLUSIVE. CHRONIC KIDNEY DISEASE STAGING PER NKF: MALE [...] mL/min Normal 80 and above >32 mL/min NormalNORMAL RANGES Age WBC RBC HGB HCT MCV PLT Adult M 4.1-10.9 4.20-6.30 12.0-18.0 37.0-51.0 80-97 140-440 Adult F 4.1-10.9 4.04-5.48 12.0-18.0 37.0-51.0 80-97 140-440 0- 1 Yr 5.0-20.0 3.9-5.9 15-18 MV: 44 MV: 91 MV: 277 2-9 Yr. 6.0-17.0 3.8-5.4 11-13 MV: 37 MV: 78 MV: 300 10 Yrs. 5.0-13.0 3.8-5.4 12-15 MV: 39 MV: 80 MV: 250 NOTE: * FOR ADULT BLACK MALES AND FEMALES, NORMAL WBC IS 2.9-7.7 K/ML * FOR ADULT BLACK MALES AND FEMALES, NORMAL RBC,HGB, AND HCT IS 5% LESS SOURCE FOR DATA: [employer] DYN 1800 OPERATION MANUAL( AUTOMATED BLOOD COUNTS AND DIFF.) APPENDIX B-3 PLT 244 10E3/uL 140-440 [facility] ([facility] CLASSIFICATION CHOLESTEROL FO R ADULTS CHILDREN/ADOLESCENTS* DESIRABLE: <200 MG/DL <170 MG/DL BORDER-LINE HIGH RISK: 200-239 MG/DL 170-199 MG/DL HIGH RISK: >240 MG/DL >200 MG/DL CLASS. FOR PRIMARY LDL CHOL PREVENTION: LDL CHOL-CHILD/ADOLESCENTS* DESIRABLE: <130 MG/DL <110 MG/DL BORDERLINE-HIGH RISK: 130-159 MG/DL 110-129 MG/DL HIGH RISK: >160 MG/DL >130 MG/DL *CHILDREN AND ADOLESCENTS REPRESENTS INDIVIDUALA AGED 2-19 YEARS EXCLUSIVE. CHRONIC KIDNEY DISEASE STAGING PER NKF: MALE [...] mL/min Normal 80 and above >32 mL/min NormalNORMAL RANGES Age WBC RBC HGB HCT MCV PLT Adult M 4.1-10.9 4.20-6.30 12.0-18.0 37.0-51.0 80-97 140-440 Adult F 4.1-10.9 4.04-5.48 12.0-18.0 37.0-51.0 80-97 140-440 0- 1 Yr 5.0-20.0 3.9-5.9 15-18 MV: 44 MV: 91 MV: 277 2-9 Yr. 6.0-17.0 3.8-5.4 11-13 MV: 37 MV: 78 MV: 300 10 Yrs. 5.0-13.0 3.8-5.4 12-15 MV: 39 MV: 80 MV: 250 NOTE: * FOR ADULT BLACK MALES AND FEMALES, NORMAL WBC IS 2.9-7.7 K/ML * FOR ADULT BLACK MALES AND FEMALES, NORMAL RBC,HGB, AND HCT IS 5% LESS SOURCE FOR DATA: [employer] DYN 1800 OPERATION MANUAL( AUTOMATED BLOOD COUNTS AND DIFF.) APPENDIX B-3 Lym% 18.8 % 10.0-58.5 [facility] ([facility] CLASSIFICATION CHOLESTEROL FO R ADULTS CHILDREN/ADOLESCENTS* DESIRABLE: <200 MG/DL <170 MG/DL BORDER-LINE HIGH RISK: 200-239 MG/DL 170-199 MG/DL HIGH RISK: >240 MG/DL >200 MG/DL CLASS. FOR PRIMARY LDL CHOL PREVENTION: LDL CHOL-CHILD/ADOLESCENTS* DESIRABLE: <130 MG/DL <110 MG/DL BORDERLINE-HIGH RISK: 130-159 MG/DL 110-129 MG/DL HIGH RISK: >160 MG/DL >130 MG/DL *CHILDREN AND ADOLESCENTS REPRESENTS INDIVIDUALA AGED 2-19 YEARS EXCLUSIVE. CHRONIC KIDNEY DISEASE STAGING PER NKF: MALE [...] mL/min Normal 80 and above >32 mL/min NormalNORMAL RANGES Age WBC RBC HGB HCT MCV PLT Adult M 4.1-10.9 4.20-6.30 12.0-18.0 37.0-51.0 80-97 140-440 Adult F 4.1-10.9 4.04-5.48 12.0-18.0 37.0-51.0 80-97 140-440 0- 1 Yr 5.0-20.0 3.9-5.9 15-18 MV: 44 MV: 91 MV: 277 2-9 Yr. 6.0-17.0 3.8-5.4 11-13 MV: 37 MV: 78 MV: 300 10 Yrs. 5.0-13.0 3.8-5.4 12-15 MV: 39 MV: 80 MV: 250 NOTE: * FOR ADULT BLACK MALES AND FEMALES, NORMAL WBC IS 2.9-7.7 K/ML * FOR ADULT BLACK MALES AND FEMALES, NORMAL RBC,HGB, AND HCT IS 5% LESS SOURCE FOR DATA: [employer] DYN 1800 OPERATION MANUAL( AUTOMATED BLOOD COUNTS AND DIFF.) APPENDIX B-3 Neut% 70.5 % 37.0-92.[address] [facility] CLASSIFICATION CHOLESTEROL FO R ADULTS CHILDREN/ADOLESCENTS* DESIRABLE: <200 MG/DL <170 MG/DL BORDER-LINE HIGH RISK: 200-239 MG/DL 170-199 MG/DL HIGH RISK: >240 MG/DL >200 MG/DL CLASS. FOR PRIMARY LDL CHOL PREVENTION: LDL CHOL-CHILD/ADOLESCENTS* DESIRABLE: <130 MG/DL <110 MG/DL BORDERLINE-HIGH RISK: 130-159 MG/DL 110-129 MG/DL HIGH RISK: >160 MG/DL >130 MG/DL *CHILDREN AND ADOLESCENTS REPRESENTS INDIVIDUALA AGED 2-19 YEARS EXCLUSIVE. CHRONIC KIDNEY DISEASE STAGING PER NKF: MALE [...] mL/min Normal 80 and above >32 mL/min NormalNORMAL RANGES Age WBC RBC HGB HCT MCV PLT Adult M 4.1-10.9 4.20-6.30 12.0-18.0 37.0-51.0 80-97 140-440 Adult F 4.1-10.9 4.04-5.48 12.0-18.0 37.0-51.0 80-97 140-440 0- 1 Yr 5.0-20.0 3.9-5.9 15-18 MV: 44 MV: 91 MV: 277 2-9 Yr. 6.0-17.0 3.8-5.4 11-13 MV: 37 MV: 78 MV: 300 10 Yrs. 5.0-13.0 3.8-5.4 12-15 MV: 39 MV: 80 MV: 250 NOTE: * FOR ADULT BLACK MALES AND FEMALES, NORMAL WBC IS 2.9-7.7 K/ML * FOR ADULT BLACK MALES AND FEMALES, NORMAL RBC,HGB, AND HCT IS 5% LESS SOURCE FOR DATA: [employer] DYN 1800 OPERATION MANUAL( AUTOMATED BLOOD COUNTS AND DIFF.) APPENDIX B-3 MXD% 10.7 % 0.1-24.[address] [facility] ([facility] CLASSIFICATION CHOLESTEROL FO R ADULTS CHILDREN/ADOLESCENTS* DESIRABLE: <200 MG/DL <170 MG/DL BORDER-LINE HIGH RISK: 200-239 MG/DL 170-199 MG/DL HIGH RISK: >240 MG/DL >200 MG/DL CLASS. FOR PRIMARY LDL CHOL PREVENTION: LDL CHOL-CHILD/ADOLESCENTS* DESIRABLE: <130 MG/DL <110 MG/DL BORDERLINE-HIGH RISK: 130-159 MG/DL 110-129 MG/DL HIGH RISK: >160 MG/DL >130 MG/DL *CHILDREN AND ADOLESCENTS REPRESENTS INDIVIDUALA AGED 2-19 YEARS EXCLUSIVE. CHRONIC KIDNEY DISEASE STAGING PER NKF: MALE [...] mL/min Normal 80 and above >32 mL/min NormalNORMAL RANGES Age WBC RBC HGB HCT MCV PLT Adult M 4.1-10.9 4.20-6.30 12.0-18.0 37.0-51.0 80-97 140-440 Adult F 4.1-10.9 4.04-5.48 12.0-18.0 37.0-51.0 80-97 140-440 0- 1 Yr 5.0-20.0 3.9-5.9 15-18 MV: 44 MV: 91 MV: 277 2-9 Yr. 6.0-17.0 3.8-5.4 11-13 MV: 37 MV: 78 MV: 300 10 Yrs. 5.0-13.0 3.8-5.4 12-15 MV: 39 MV: 80 MV: 250 NOTE: * FOR ADULT BLACK MALES AND FEMALES, NORMAL WBC IS 2.9-7.7 K/ML * FOR ADULT BLACK MALES AND FEMALES, NORMAL RBC,HGB, AND HCT IS 5% LESS SOURCE FOR DATA: [employer] DYN 1800 OPERATION MANUAL( AUTOMATED BLOOD COUNTS AND DIFF.) APPENDIX B-3 Lym# 1.0 10E3/uL 0.6-4.1 [facility] ([facility] CLASSIFICATION CHOLESTEROL FO R ADULTS CHILDREN/ADOLESCENTS* DESIRABLE: <200 MG/DL <170 MG/DL BORDER-LINE HIGH RISK: 200-239 MG/DL 170-199 MG/DL HIGH RISK: >240 MG/DL >200 MG/DL CLASS. FOR PRIMARY LDL CHOL PREVENTION: LDL CHOL-CHILD/ADOLESCENTS* DESIRABLE: <130 MG/DL <110 MG/DL BORDERLINE-HIGH RISK: 130-159 MG/DL 110-129 MG/DL HIGH RISK: >160 MG/DL >130 MG/DL *CHILDREN AND ADOLESCENTS REPRESENTS INDIVIDUALA AGED 2-19 YEARS EXCLUSIVE. CHRONIC KIDNEY DISEASE STAGING PER NKF: MALE [...] mL/min Normal 80 and above >32 mL/min NormalNORMAL RANGES Age WBC RBC HGB HCT MCV PLT Adult M 4.1-10.9 4.20-6.30 12.0-18.0 37.0-51.0 80-97 140-440 Adult F 4.1-10.9 4.04-5.48 12.0-18.0 37.0-51.0 80-97 140-440 0- 1 Yr 5.0-20.0 3.9-5.9 15-18 MV: 44 MV: 91 MV: 277 2-9 Yr. 6.0-17.0 3.8-5.4 11-13 MV: 37 MV: 78 MV: 300 10 Yrs. 5.0-13.0 3.8-5.4 12-15 MV: 39 MV: 80 MV: 250 NOTE: * FOR ADULT BLACK MALES AND FEMALES, NORMAL WBC IS 2.9-7.7 K/ML * FOR ADULT BLACK MALES AND FEMALES, NORMAL RBC,HGB, AND HCT IS 5% LESS SOURCE FOR DATA: [employer] 1800 OPERATION MANUAL( AUTOMATED BLOOD COUNTS AND DIFF.) APPENDIX B-3 Neut# 3.6 % 2.0-7.[address] [facility] ([facility] CLASSIFICATION CHOLESTEROL FO R ADULTS CHILDREN/ADOLESCENTS* DESIRABLE: <200 MG/DL <170 MG/DL BORDER-LINE HIGH RISK: 200-239 MG/DL 170-199 MG/DL HIGH RISK: >240 MG/DL >200 MG/DL CLASS. FOR PRIMARY LDL CHOL PREVENTION: LDL CHOL-CHILD/ADOLESCENTS* DESIRABLE: <130 MG/DL <110 MG/DL BORDERLINE-HIGH RISK: 130-159 MG/DL 110-129 MG/DL HIGH RISK: >160 MG/DL >130 MG/DL *CHILDREN AND ADOLESCENTS REPRESENTS INDIVIDUALA AGED 2-19 YEARS EXCLUSIVE. CHRONIC KIDNEY DISEASE STAGING PER NKF: MALE [...] mL/min Normal 80 and above >32 mL/min NormalNORMAL RANGES Age WBC RBC HGB HCT MCV PLT Adult M 4.1-10.9 4.20-6.30 12.0-18.0 37.0-51.0 80-97 140-440 Adult F 4.1-10.9 4.04-5.48 12.0-18.0 37.0-51.0 80-97 140-440 0- 1 Yr 5.0-20.0 3.9-5.9 15-18 MV: 44 MV: 91 MV: 277 2-9 Yr. 6.0-17.0 3.8-5.4 11-13 MV: 37 MV: 78 MV: 300 10 Yrs. 5.0-13.0 3.8-5.4 12-15 MV: 39 MV: 80 MV: 250 NOTE: * FOR ADULT BLACK MALES AND FEMALES, NORMAL WBC IS 2.9-7.7 K/ML * FOR ADULT BLACK MALES AND FEMALES, NORMAL RBC,HGB, AND HCT IS 5% LESS SOURCE FOR DATA: [employer] 1800 OPERATION MANUAL( AUTOMATED BLOOD COUNTS AND DIFF.) APPENDIX B-3 MXD# 0.6 10E3/uL 0.0-1.8 [facility] ([facility] CLASSIFICATION CHOLESTEROL FO R ADULTS CHILDREN/ADOLESCENTS* DESIRABLE: <200 MG/DL <170 MG/DL BORDER-LINE HIGH RISK: 200-239 MG/DL 170-199 MG/DL HIGH RISK: >240 MG/DL >200 MG/DL CLASS. FOR PRIMARY LDL CHOL PREVENTION: LDL CHOL-CHILD/ADOLESCENTS* DESIRABLE: <130 MG/DL <110 MG/DL BORDERLINE-HIGH RISK: 130-159 MG/DL 110-129 MG/DL HIGH RISK: >160 MG/DL >130 MG/DL *CHILDREN AND ADOLESCENTS REPRESENTS INDIVIDUALA AGED 2-19 YEARS EXCLUSIVE. CHRONIC KIDNEY DISEASE STAGING PER NKF: MALE [...] mL/min Normal 80 and above >32 mL/min NormalNORMAL RANGES Age WBC RBC HGB HCT MCV PLT Adult M 4.1-10.9 4.20-6.30 12.0-18.0 37.0-51.0 80-97 140-440 Adult F 4.1-10.9 4.04-5.48 12.0-18.0 37.0-51.0 80-97 140-440 0- 1 Yr 5.0-20.0 3.9-5.9 15-18 MV: 44 MV: 91 MV: 277 2-9 Yr. 6.0-17.0 3.8-5.4 11-13 MV: 37 MV: 78 MV: 300 10 Yrs. 5.0-13.0 3.8-5.4 12-15 MV: 39 MV: 80 MV: 250 NOTE: * FOR ADULT BLACK MALES AND FEMALES, NORMAL WBC IS 2.9-7.7 K/ML * FOR ADULT BLACK MALES AND FEMALES, NORMAL RBC,HGB, AND HCT IS 5% LESS SOURCE FOR DATA: [employer] 1800 OPERATION MANUAL( AUTOMATED BLOOD COUNTS AND DIFF.) APPENDIX B-3 MPV 10.2 fL 9.0-13.0 [facility] ([facility] CLASSIFICATION CHOLESTEROL FO R ADULTS CHILDREN/ADOLESCENTS* DESIRABLE: <200 MG/DL <170 MG/DL BORDER-LINE HIGH RISK: 200-239 MG/DL 170-199 MG/DL HIGH RISK: >240 MG/DL >200 MG/DL CLASS. FOR PRIMARY LDL CHOL PREVENTION: LDL CHOL-CHILD/ADOLESCENTS* DESIRABLE: <130 MG/DL <110 MG/DL BORDERLINE-HIGH RISK: 130-159 MG/DL 110-129 MG/DL HIGH RISK: >160 MG/DL >130 MG/DL *CHILDREN AND ADOLESCENTS REPRESENTS INDIVIDUALA AGED 2-19 YEARS EXCLUSIVE. CHRONIC KIDNEY DISEASE STAGING PER NKF: MALE [...] mL/min Normal 80 and above >32 mL/min NormalNORMAL RANGES Age WBC RBC HGB HCT MCV PLT Adult M 4.1-10.9 4.20-6.30 12.0-18.0 37.0-51.0 80-97 140-440 Adult F 4.1-10.9 4.04-5.48 12.0-18.0 37.0-51.0 80-97 140-440 0- 1 Yr 5.0-20.0 3.9-5.9 15-18 MV: 44 MV: 91 MV: 277 2-9 Yr. 6.0-17.0 3.8-5.4 11-13 MV: 37 MV: 78 MV: 300 10 Yrs. 5.0-13.0 3.8-5.4 12-15 MV: 39 MV: 80 MV: 250 NOTE: * FOR ADULT BLACK MALES AND FEMALES, NORMAL WBC IS 2.9-7.7 K/ML * FOR ADULT BLACK MALES AND FEMALES, NORMAL RBC,HGB, AND HCT IS 5% LESS SOURCE FOR DATA: [employer] DYN 1800 OPERATION MANUAL( AUTOMATED BLOOD COUNTS AND DIFF.) APPENDIX B-3 ID Date Data Source [id number] 08/19/2019 10:09:00 AM EST [facility] ([facility] Name Value Range Interpretation Code Description Data Olimpia rce(s) Supporting Document(s) Trig 216 mg/dL 40-200 Above high normal [facility] ([facility] CLASSIFICATION CHOLESTEROL FO R ADULTS CHILDREN/ADOLESCENTS* DESIRABLE: <200 MG/DL <170 MG/DL BORDER-LINE HIGH RISK: 200-239 MG/DL 170-199 MG/DL HIGH RISK: >240 MG/DL >200 MG/DL CLASS. FOR PRIMARY LDL CHOL PREVENTION: LDL CHOL-CHILD/ADOLESCENTS* DESIRABLE: <130 MG/DL <110 MG/DL BORDERLINE-HIGH RISK: 130-159 MG/DL 110-129 MG/DL HIGH RISK: >160 MG/DL >130 MG/DL *CHILDREN AND ADOLESCENTS REPRESENTS INDIVIDUALA AGED 2-19 YEARS EXCLUSIVE. CHRONIC KIDNEY DISEASE STAGING PER NKF: MALE [...] mL/min Normal 80 and above >32 mL/min NormalNORMAL RANGES Age WBC RBC HGB HCT MCV PLT Adult M 4.1-10.9 4.20-6.30 12.0-18.0 37.0-51.0 80-97 140-440 Adult F 4.1-10.9 4.04-5.48 12.0-18.0 37.0-51.0 80-97 140-440 0- 1 Yr 5.0-20.0 3.9-5.9 15-18 MV: 44 MV: 91 MV: 277 2-9 Yr. 6.0-17.0 3.8-5.4 11-13 MV: 37 MV: 78 MV: 300 10 Yrs. 5.0-13.0 3.8-5.4 12-15 MV: 39 MV: 80 MV: 250 NOTE: * FOR ADULT BLACK MALES AND FEMALES, NORMAL WBC IS 2.9-7.7 K/ML * FOR ADULT BLACK MALES AND FEMALES, NORMAL RBC,HGB, AND HCT IS 5% LESS SOURCE FOR DATA: [employer] DYN 1800 OPERATION MANUAL( AUTOMATED BLOOD COUNTS AND DIFF.) APPENDIX B-3 Chol 177 mg/dL 0-200 [facility] CLASSIFICATION CHOLESTEROL FO R ADULTS CHILDREN/ADOLESCENTS* DESIRABLE: <200 MG/DL <170 MG/DL BORDER-LINE HIGH RISK: 200-239 MG/DL 170-199 MG/DL HIGH RISK: >240 MG/DL >200 MG/DL CLASS. FOR PRIMARY LDL CHOL PREVENTION: LDL CHOL-CHILD/ADOLESCENTS* DESIRABLE: <130 MG/DL <110 MG/DL BORDERLINE-HIGH RISK: 130-159 MG/DL 110-129 MG/DL HIGH RISK: >160 MG/DL >130 MG/DL *CHILDREN AND ADOLESCENTS REPRESENTS INDIVIDUALA AGED 2-19 YEARS EXCLUSIVE. CHRONIC KIDNEY DISEASE STAGING PER NKF: MALE [...] mL/min Normal 80 and above >32 mL/min NormalNORMAL RANGES Age WBC RBC HGB HCT MCV PLT Adult M 4.1-10.9 4.20-6.30 12.0-18.0 37.0-51.0 80-97 140-440 Adult F 4.1-10.9 4.04-5.48 12.0-18.0 37.0-51.0 80-97 140-440 0- 1 Yr 5.0-20.0 3.9-5.9 15-18 MV: 44 MV: 91 MV: 277 2-9 Yr. 6.0-17.0 3.8-5.4 11-13 MV: 37 MV: 78 MV: 300 10 Yrs. 5.0-13.0 3.8-5.4 12-15 MV: 39 MV: 80 MV: 250 NOTE: * FOR ADULT BLACK MALES AND FEMALES, NORMAL WBC IS 2.9-7.7 K/ML * FOR ADULT BLACK MALES AND FEMALES, NORMAL RBC,HGB, AND HCT IS 5% LESS SOURCE FOR DATA: [employer] DYN 1800 OPERATION MANUAL( AUTOMATED BLOOD COUNTS AND DIFF.) APPENDIX B-3 LDL_C 102 Calc 75-[address] [facility] CLASSIFICATION CHOLESTEROL FO R ADULTS CHILDREN/ADOLESCENTS* DESIRABLE: <200 MG/DL <170 MG/DL BORDER-LINE HIGH RISK: 200-239 MG/DL 170-199 MG/DL HIGH RISK: >240 MG/DL >200 MG/DL CLASS. FOR PRIMARY LDL CHOL PREVENTION: LDL CHOL-CHILD/ADOLESCENTS* DESIRABLE: <130 MG/DL <110 MG/DL BORDERLINE-HIGH RISK: 130-159 MG/DL 110-129 MG/DL HIGH RISK: >160 MG/DL >130 MG/DL *CHILDREN AND ADOLESCENTS REPRESENTS INDIVIDUALA AGED 2-19 YEARS EXCLUSIVE. CHRONIC KIDNEY DISEASE STAGING PER NKF: MALE [...] mL/min Normal 80 and above >32 mL/min NormalNORMAL RANGES Age WBC RBC HGB HCT MCV PLT Adult M 4.1-10.9 4.20-6.30 12.0-18.0 37.0-51.0 80-97 140-440 Adult F 4.1-10.9 4.04-5.48 12.0-18.0 37.0-51.0 80-97 140-440 0- 1 Yr 5.0-20.0 3.9-5.9 15-18 MV: 44 MV: 91 MV: 277 2-9 Yr. 6.0-17.0 3.8-5.4 11-13 MV: 37 MV: 78 MV: 300 10 Yrs. 5.0-13.0 3.8-5.4 12-15 MV: 39 MV: 80 MV: 250 NOTE: * FOR ADULT BLACK MALES AND FEMALES, NORMAL WBC IS 2.9-7.7 K/ML * FOR ADULT BLACK MALES AND FEMALES, NORMAL RBC,HGB, AND HCT IS 5% LESS SOURCE FOR DATA: [employer] 1800 OPERATION MANUAL( AUTOMATED BLOOD COUNTS AND DIFF.) APPENDIX B-3 Prostate specific Ag [Mass/volume] in Serum or Plasma 32 mg/dL 45-65 Below low normal [facility] ([facility] CLASSIFICATION CHOLESTEROL FO R ADULTS CHILDREN/ADOLESCENTS* DESIRABLE: <200 MG/DL <170 MG/DL BORDER-LINE HIGH RISK: 200-239 MG/DL 170-199 MG/DL HIGH RISK: >240 MG/DL >200 MG/DL CLASS. FOR PRIMARY LDL CHOL PREVENTION: LDL CHOL-CHILD/ADOLESCENTS* DESIRABLE: <130 MG/DL <110 MG/DL BORDERLINE-HIGH RISK: 130-159 MG/DL 110-129 MG/DL HIGH RISK: >160 MG/DL >130 MG/DL *CHILDREN AND ADOLESCENTS REPRESENTS INDIVIDUALA AGED 2-19 YEARS EXCLUSIVE. CHRONIC KIDNEY DISEASE STAGING PER NKF: MALE [...] mL/min Normal 80 and above >32 mL/min NormalNORMAL RANGES Age WBC RBC HGB HCT MCV PLT Adult M 4.1-10.9 4.20-6.30 12.0-18.0 37.0-51.0 80-97 140-440 Adult F 4.1-10.9 4.04-5.48 12.0-18.0 37.0-51.0 80- 140-440 0- 1 Yr 5.0-20.0 3.9-5.9 15-18 MV: 44 MV: 91 MV: 277 2-9 Yr. 6.0-17.0 3.8-5.4 11-13 MV: 37 MV: 78 MV: 300 10 Yrs. 5.0-13.0 3.8-5.4 12-15 MV: 39 MV: 80 MV: 250 NOTE: * FOR ADULT BLACK MALES AND FEMALES, NORMAL WBC IS 2.9-7.7 K/ML * FOR ADULT BLACK MALES AND FEMALES, NORMAL RBC,HGB, AND HCT IS 5% LESS SOURCE FOR DATA: [employer] 1800 OPERATION MANUAL( AUTOMATED BLOOD COUNTS AND DIFF.) APPENDIX B-3 Cho/HDL Ratio 5.5 CALC [facility] ([facility] CLASSIFICATION CHOLESTEROL FO R ADULTS CHILDREN/ADOLESCENTS* DESIRABLE: <200 MG/DL <170 MG/DL BORDER-LINE HIGH RISK: 200-239 MG/DL 170-199 MG/DL HIGH RISK: >240 MG/DL >200 MG/DL CLASS. FOR PRIMARY LDL CHOL PREVENTION: LDL CHOL-CHILD/ADOLESCENTS* DESIRABLE: <130 MG/DL <110 MG/DL BORDERLINE-HIGH RISK: 130-159 MG/DL 110-129 MG/DL HIGH RISK: >160 MG/DL >130 MG/DL *CHILDREN AND ADOLESCENTS REPRESENTS INDIVIDUALA AGED 2-19 YEARS EXCLUSIVE. CHRONIC KIDNEY DISEASE STAGING PER NKF: MALE [...] mL/min Normal 80 and above >32 mL/min NormalNORMAL RANGES Age WBC RBC HGB HCT MCV PLT Adult M 4.1-10.9 4.20-6.30 12.0-18.0 37.0-51.0 80-97 140-440 Adult F 4.1-10.9 4.04-5.48 12.0-18.0 37.0-51.0 80-97 140-440 0- 1 Yr 5.0-20.0 3.9-5.9 15-18 MV: 44 MV: 91 MV: 277 2-9 Yr. 6.0-17.0 3.8-5.4 11-13 MV: 37 MV: 78 MV: 300 10 Yrs. 5.0-13.0 3.8-5.4 12-15 MV: 39 MV: 80 MV: 250 NOTE: * FOR ADULT BLACK MALES AND FEMALES, NORMAL WBC IS 2.9-7.7 K/ML * FOR ADULT BLACK MALES AND FEMALES, NORMAL RBC,HGB, AND HCT IS 5% LESS SOURCE FOR DATA: [employer] 1800 OPERATION MANUAL( AUTOMATED BLOOD COUNTS AND DIFF.) APPENDIX B-3 ID Date Data Source [id number] 08/19/2019 10:09:00 AM EST [facility] ([facility] Name Value Range Interpretation Code Description Data Olimpia rce(s) Supporting Document(s) Glu 155 mg/dL 70-110 Above high normal [facility] ([facility] CLASSIFICATION CHOLESTEROL FO R ADULTS CHILDREN/ADOLESCENTS* DESIRABLE: <200 MG/DL <170 MG/DL BORDER-LINE HIGH RISK: 200-239 MG/DL 170-199 MG/DL HIGH RISK: >240 MG/DL >200 MG/DL CLASS. FOR PRIMARY LDL CHOL PREVENTION: LDL CHOL-CHILD/ADOLESCENTS* DESIRABLE: <130 MG/DL <110 MG/DL BORDERLINE-HIGH RISK: 130-159 MG/DL 110-129 MG/DL HIGH RISK: >160 MG/DL >130 MG/DL *CHILDREN AND ADOLESCENTS REPRESENTS INDIVIDUALA AGED 2-19 YEARS EXCLUSIVE. CHRONIC KIDNEY DISEASE STAGING PER NKF: MALE [...] mL/min Normal 80 and above >32 mL/min NormalNORMAL RANGES Age WBC RBC HGB HCT MCV PLT Adult M 4.1-10.9 4.20-6.30 12.0-18.0 37.0-51.0 80-97 140-440 Adult F 4.1-10.9 4.04-5.48 12.0-18.0 37.0-51.0 80-97 140-440 0- 1 Yr 5.0-20.0 3.9-5.9 15-18 MV: 44 MV: 91 MV: 277 2-9 Yr. 6.0-17.0 3.8-5.4 11-13 MV: 37 MV: 78 MV: 300 10 Yrs. 5.0-13.0 3.8-5.4 12-15 MV: 39 MV: 80 MV: 250 NOTE: * FOR ADULT BLACK MALES AND FEMALES, NORMAL WBC IS 2.9-7.7 K/ML * FOR ADULT BLACK MALES AND FEMALES, NORMAL RBC,HGB, AND HCT IS 5% LESS SOURCE FOR DATA: [employer] DYN 1800 OPERATION MANUAL( AUTOMATED BLOOD COUNTS AND DIFF.) APPENDIX B-3 BUN 68 mg/dL 8-23 Above high normal [facility] ([facility] CLASSIFICATION CHOLESTEROL FO R ADULTS CHILDREN/ADOLESCENTS* DESIRABLE: <200 MG/DL <170 MG/DL BORDER-LINE HIGH RISK: 200-239 MG/DL 170-199 MG/DL HIGH RISK: >240 MG/DL >200 MG/DL CLASS. FOR PRIMARY LDL CHOL PREVENTION: LDL CHOL-CHILD/ADOLESCENTS* DESIRABLE: <130 MG/DL <110 MG/DL BORDERLINE-HIGH RISK: 130-159 MG/DL 110-129 MG/DL HIGH RISK: >160 MG/DL >130 MG/DL *CHILDREN AND ADOLESCENTS REPRESENTS INDIVIDUALA AGED 2-19 YEARS EXCLUSIVE. CHRONIC KIDNEY DISEASE STAGING PER NKF: MALE [...] mL/min Normal 80 and above >32 mL/min NormalNORMAL RANGES Age WBC RBC HGB HCT MCV PLT Adult M 4.1-10.9 4.20-6.30 12.0-18.0 37.0-51.0 80-97 140-440 Adult F 4.1-10.9 4.04-5.48 12.0-18.0 37.0-51.0 80-97 140-440 0- 1 Yr 5.0-20.0 3.9-5.9 15-18 MV: 44 MV: 91 MV: 277 2-9 Yr. 6.0-17.0 3.8-5.4 11-13 MV: 37 MV: 78 MV: 300 10 Yrs. 5.0-13.0 3.8-5.4 12-15 MV: 39 MV: 80 MV: 250 NOTE: * FOR ADULT BLACK MALES AND FEMALES, NORMAL WBC IS 2.9-7.7 K/ML * FOR ADULT BLACK MALES AND FEMALES, NORMAL RBC,HGB, AND HCT IS 5% LESS SOURCE FOR DATA: [employer] 1800 OPERATION MANUAL( AUTOMATED BLOOD COUNTS AND DIFF.) APPENDIX B-3 BUN/Creatinine Ratio 34.3 CALC [facility] ([facility] CLASSIFICATION CHOLESTEROL FO R ADULTS CHILDREN/ADOLESCENTS* DESIRABLE: <200 MG/DL <170 MG/DL BORDER-LINE HIGH RISK: 200-239 MG/DL 170-199 MG/DL HIGH RISK: >240 MG/DL >200 MG/DL CLASS. FOR PRIMARY LDL CHOL PREVENTION: LDL CHOL-CHILD/ADOLESCENTS* DESIRABLE: <130 MG/DL <110 MG/DL BORDERLINE-HIGH RISK: 130-159 MG/DL 110-129 MG/DL HIGH RISK: >160 MG/DL >130 MG/DL *CHILDREN AND ADOLESCENTS REPRESENTS INDIVIDUALA AGED 2-19 YEARS EXCLUSIVE. CHRONIC KIDNEY DISEASE STAGING PER NKF: MALE [...] mL/min Normal 80 and above >32 mL/min NormalNORMAL RANGES Age WBC RBC HGB HCT MCV PLT Adult M 4.1-10.9 4.20-6.30 12.0-18.0 37.0-51.0 80-97 140-440 Adult F 4.1-10.9 4.04-5.48 12.0-18.0 37.0-51.0 80-97 140-440 0- 1 Yr 5.0-20.0 3.9-5.9 15-18 MV: 44 MV: 91 MV: 277 2-9 Yr. 6.0-17.0 3.8-5.4 11-13 MV: 37 MV: 78 MV: 300 10 Yrs. 5.0-13.0 3.8-5.4 12-15 MV: 39 MV: 80 MV: 250 NOTE: * FOR ADULT BLACK MALES AND FEMALES, NORMAL WBC IS 2.9-7.7 K/ML * FOR ADULT BLACK MALES AND FEMALES, NORMAL RBC,HGB, AND HCT IS 5% LESS SOURCE FOR DATA: [employer]MY DYN 1800 OPERATION MANUAL( AUTOMATED BLOOD COUNTS AND DIFF.) APPENDIX B-3 Creat 2.0 mg/dL 0.5-1.0 Above high normal [facility] ([facility] CLASSIFICATION CHOLESTEROL FO R ADULTS CHILDREN/ADOLESCENTS* DESIRABLE: <200 MG/DL <170 MG/DL BORDER-LINE HIGH RISK: 200-239 MG/DL 170-199 MG/DL HIGH RISK: >240 MG/DL >200 MG/DL CLASS. FOR PRIMARY LDL CHOL PREVENTION: LDL CHOL-CHILD/ADOLESCENTS* DESIRABLE: <130 MG/DL <110 MG/DL BORDERLINE-HIGH RISK: 130-159 MG/DL 110-129 MG/DL HIGH RISK: >160 MG/DL >130 MG/DL *CHILDREN AND ADOLESCENTS REPRESENTS INDIVIDUALA AGED 2-19 YEARS EXCLUSIVE. CHRONIC KIDNEY DISEASE STAGING PER NKF: MALE [...] mL/min Normal 80 and above >32 mL/min NormalNORMAL RANGES Age WBC RBC HGB HCT MCV PLT Adult M 4.1-10.9 4.20-6.30 12.0-18.0 37.0-51.0 80-97 140-440 Adult F 4.1-10.9 4.04-5.48 12.0-18.0 37.0-51.0 80-97 140-440 0- 1 Yr 5.0-20.0 3.9-5.9 15-18 MV: 44 MV: 91 MV: 277 2-9 Yr. 6.0-17.0 3.8-5.4 11-13 MV: 37 MV: 78 MV: 300 10 Yrs. 5.0-13.0 3.8-5.4 12-15 MV: 39 MV: 80 MV: 250 NOTE: * FOR ADULT BLACK MALES AND FEMALES, NORMAL WBC IS 2.9-7.7 K/ML * FOR ADULT BLACK MALES AND FEMALES, NORMAL RBC,HGB, AND HCT IS 5% LESS SOURCE FOR DATA: [employer]MY DYN 1800 OPERATION MANUAL( AUTOMATED BLOOD COUNTS AND DIFF.) APPENDIX B-3 K 5.5 mmol/L 3.5-5.1 Above high normal [facility] ([facility] CLASSIFICATION CHOLESTEROL FO R ADULTS CHILDREN/ADOLESCENTS* DESIRABLE: <200 MG/DL <170 MG/DL BORDER-LINE HIGH RISK: 200-239 MG/DL 170-199 MG/DL HIGH RISK: >240 MG/DL >200 MG/DL CLASS. FOR PRIMARY LDL CHOL PREVENTION: LDL CHOL-CHILD/ADOLESCENTS* DESIRABLE: <130 MG/DL <110 MG/DL BORDERLINE-HIGH RISK: 130-159 MG/DL 110-129 MG/DL HIGH RISK: >160 MG/DL >130 MG/DL *CHILDREN AND ADOLESCENTS REPRESENTS INDIVIDUALA AGED 2-19 YEARS EXCLUSIVE. CHRONIC KIDNEY DISEASE STAGING PER NKF: MALE [...] mL/min Normal 80 and above >32 mL/min NormalNORMAL RANGES Age WBC RBC HGB HCT MCV PLT Adult M 4.1-10.9 4.20-6.30 12.0-18.0 37.0-51.0 80-97 140-440 Adult F 4.1-10.9 4.04-5.48 12.0-18.0 37.0-51.0 80-97 140-440 0- 1 Yr 5.0-20.0 3.9-5.9 15-18 MV: 44 MV: 91 MV: 277 2-9 Yr. 6.0-17.0 3.8-5.4 11-13 MV: 37 MV: 78 MV: 300 10 Yrs. 5.0-13.0 3.8-5.4 12-15 MV: 39 MV: 80 MV: 250 NOTE: * FOR ADULT BLACK MALES AND FEMALES, NORMAL WBC IS 2.9-7.7 K/ML * FOR ADULT BLACK MALES AND FEMALES, NORMAL RBC,HGB, AND HCT IS 5% LESS SOURCE FOR DATA: [employer]MY DYN 1800 OPERATION MANUAL( AUTOMATED BLOOD COUNTS AND DIFF.) APPENDIX B-3 Na 133 mmol/L 136-145 Below low normal [facility] ( [facility] CLASSIFICATION CHOLESTEROL FO R ADULTS CHILDREN/ADOLESCENTS* DESIRABLE: <200 MG/DL <170 MG/DL BORDER-LINE HIGH RISK: 200-239 MG/DL 170-199 MG/DL HIGH RISK: >240 MG/DL >200 MG/DL CLASS. FOR PRIMARY LDL CHOL PREVENTION: LDL CHOL-CHILD/ADOLESCENTS* DESIRABLE: <130 MG/DL <110 MG/DL BORDERLINE-HIGH RISK: 130-159 MG/DL 110-129 MG/DL HIGH RISK: >160 MG/DL >130 MG/DL *CHILDREN AND ADOLESCENTS REPRESENTS INDIVIDUALA AGED 2-19 YEARS EXCLUSIVE. CHRONIC KIDNEY DISEASE STAGING PER NKF: MALE [...] mL/min Normal 80 and above >32 mL/min NormalNORMAL RANGES Age WBC RBC HGB HCT MCV PLT Adult M 4.1-10.9 4.20-6.30 12.0-18.0 37.0-51.0 80-97 140-440 Adult F 4.1-10.9 4.04-5.48 12.0-18.0 37.0-51.0 80-97 140-440 0- 1 Yr 5.0-20.0 3.9-5.9 15-18 MV: 44 MV: 91 MV: 277 2-9 Yr. 6.0-17.0 3.8-5.4 11-13 MV: 37 MV: 78 MV: 300 10 Yrs. 5.0-13.0 3.8-5.4 12-15 MV: 39 MV: 80 MV: 250 NOTE: * FOR ADULT BLACK MALES AND FEMALES, NORMAL WBC IS 2.9-7.7 K/ML * FOR ADULT BLACK MALES AND FEMALES, NORMAL RBC,HGB, AND HCT IS 5% LESS SOURCE FOR DATA: TOMMY DYN 1800 OPERATION MANUAL( AUTOMATED BLOOD COUNTS AND DIFF.) APPENDIX B-3 CL 99.2 mmol/L 98.0-107.0 [facility] ([facility] CLASSIFICATION CHOLESTEROL FO R ADULTS CHILDREN/ADOLESCENTS* DESIRABLE: <200 MG/DL <170 MG/DL BORDER-LINE HIGH RISK: 200-239 MG/DL 170-199 MG/DL HIGH RISK: >240 MG/DL >200 MG/DL CLASS. FOR PRIMARY LDL CHOL PREVENTION: LDL CHOL-CHILD/ADOLESCENTS* DESIRABLE: <130 MG/DL <110 MG/DL BORDERLINE-HIGH RISK: 130-159 MG/DL 110-129 MG/DL HIGH RISK: >160 MG/DL >130 MG/DL *CHILDREN AND ADOLESCENTS REPRESENTS INDIVIDUALA AGED 2-19 YEARS EXCLUSIVE. CHRONIC KIDNEY DISEASE STAGING PER NKF: MALE [...] mL/min Normal 80 and above >32 mL/min NormalNORMAL RANGES Age WBC RBC HGB HCT MCV PLT Adult M 4.1-10.9 4.20-6.30 12.0-18.0 37.0-51.0 80-97 140-440 Adult F 4.1-10.9 4.04-5.48 12.0-18.0 37.0-51.0 80-97 140-440 0- 1 Yr 5.0-20.0 3.9-5.9 15-18 MV: 44 MV: 91 MV: 277 2-9 Yr. 6.0-17.0 3.8-5.4 11-13 MV: 37 MV: 78 MV: 300 10 Yrs. 5.0-13.0 3.8-5.4 12-15 MV: 39 MV: 80 MV: 250 NOTE: * FOR ADULT BLACK MALES AND FEMALES, NORMAL WBC IS 2.9-7.7 K/ML * FOR ADULT BLACK MALES AND FEMALES, NORMAL RBC,HGB, AND HCT IS 5% LESS SOURCE FOR DATA: [employer] DYN 1800 OPERATION MANUAL( AUTOMATED BLOOD COUNTS AND DIFF.) APPENDIX B-3 Co2 21.4 mmol/L 22.0-29.0 Below low normal [facility] ([facility] CLASSIFICATION CHOLESTEROL FO R ADULTS CHILDREN/ADOLESCENTS* DESIRABLE: <200 MG/DL <170 MG/DL BORDER-LINE HIGH RISK: 200-239 MG/DL 170-199 MG/DL HIGH RISK: >240 MG/DL >200 MG/DL CLASS. FOR PRIMARY LDL CHOL PREVENTION: LDL CHOL-CHILD/ADOLESCENTS* DESIRABLE: <130 MG/DL <110 MG/DL BORDERLINE-HIGH RISK: 130-159 MG/DL 110-129 MG/DL HIGH RISK: >160 MG/DL >130 MG/DL *CHILDREN AND ADOLESCENTS REPRESENTS INDIVIDUALA AGED 2-19 YEARS EXCLUSIVE. CHRONIC KIDNEY DISEASE STAGING PER NKF: MALE [...] mL/min Normal 80 and above >32 mL/min NormalNORMAL RANGES Age WBC RBC HGB HCT MCV PLT Adult M 4.1-10.9 4.20-6.30 12.0-18.0 37.0-51.0 80-97 140-440 Adult F 4.1-10.9 4.04-5.48 12.0-18.0 37.0-51.0 80-97 140-440 0- 1 Yr 5.0-20.0 3.9-5.9 15-18 MV: 44 MV: 91 MV: 277 2-9 Yr. 6.0-17.0 3.8-5.4 11-13 MV: 37 MV: 78 MV: 300 10 Yrs. 5.0-13.0 3.8-5.4 12-15 MV: 39 MV: 80 MV: 250 NOTE: * FOR ADULT BLACK MALES AND FEMALES, NORMAL WBC IS 2.9-7.7 K/ML * FOR ADULT BLACK MALES AND FEMALES, NORMAL RBC,HGB, AND HCT IS 5% LESS SOURCE FOR DATA: [employer] DYN 1800 OPERATION MANUAL( AUTOMATED BLOOD COUNTS AND DIFF.) APPENDIX B-3 CA 9.5 mg/dL 8.6-10.2 [facility] ([facility] CLASSIFICATION CHOLESTEROL FO R ADULTS CHILDREN/ADOLESCENTS* DESIRABLE: <200 MG/DL <170 MG/DL BORDER-LINE HIGH RISK: 200-239 MG/DL 170-199 MG/DL HIGH RISK: >240 MG/DL >200 MG/DL CLASS. FOR PRIMARY LDL CHOL PREVENTION: LDL CHOL-CHILD/ADOLESCENTS* DESIRABLE: <130 MG/DL <110 MG/DL BORDERLINE-HIGH RISK: 130-159 MG/DL 110-129 MG/DL HIGH RISK: >160 MG/DL >130 MG/DL *CHILDREN AND ADOLESCENTS REPRESENTS INDIVIDUALA AGED 2-19 YEARS EXCLUSIVE. CHRONIC KIDNEY DISEASE STAGING PER NKF: MALE [...] mL/min Normal 80 and above >32 mL/min NormalNORMAL RANGES Age WBC RBC HGB HCT MCV PLT Adult M 4.1-10.9 4.20-6.30 12.0-18.0 37.0-51.0 80-97 140-440 Adult F 4.1-10.9 4.04-5.48 12.0-18.0 37.0-51.0 80-97 140-440 0- 1 Yr 5.0-20.0 3.9-5.9 15-18 MV: 44 MV: 91 MV: 277 2-9 Yr. 6.0-17.0 3.8-5.4 11-13 MV: 37 MV: 78 MV: 300 10 Yrs. 5.0-13.0 3.8-5.4 12-15 MV: 39 MV: 80 MV: 250 NOTE: * FOR ADULT BLACK MALES AND FEMALES, NORMAL WBC IS 2.9-7.7 K/ML * FOR ADULT BLACK MALES AND FEMALES, NORMAL RBC,HGB, AND HCT IS 5% LESS SOURCE FOR DATA: [employer] 1800 OPERATION MANUAL( AUTOMATED BLOOD COUNTS AND DIFF.) APPENDIX B-3 TP 7.4 g/dL 6.6-8.7 [facility] ([facility] CLASSIFICATION CHOLESTEROL FO R ADULTS CHILDREN/ADOLESCENTS* DESIRABLE: <200 MG/DL <170 MG/DL BORDER-LINE HIGH RISK: 200-239 MG/DL 170-199 MG/DL HIGH RISK: >240 MG/DL >200 MG/DL CLASS. FOR PRIMARY LDL CHOL PREVENTION: LDL CHOL-CHILD/ADOLESCENTS* DESIRABLE: <130 MG/DL <110 MG/DL BORDERLINE-HIGH RISK: 130-159 MG/DL 110-129 MG/DL HIGH RISK: >160 MG/DL >130 MG/DL *CHILDREN AND ADOLESCENTS REPRESENTS INDIVIDUALA AGED 2-19 YEARS EXCLUSIVE. CHRONIC KIDNEY DISEASE STAGING PER NKF: MALE [...] mL/min Normal 80 and above >32 mL/min NormalNORMAL RANGES Age WBC RBC HGB HCT MCV PLT Adult M 4.1-10.9 4.20-6.30 12.0-18.0 37.0-51.0 80-97 140-440 Adult F 4.1-10.9 4.04-5.48 12.0-18.0 37.0-51.0 80- 140-440 0- 1 Yr 5.0-20.0 3.9-5.9 15-18 MV: 44 MV: 91 MV: 277 2-9 Yr. 6.0-17.0 3.8-5.4 11-13 MV: 37 MV: 78 MV: 300 10 Yrs. 5.0-13.0 3.8-5.4 12-15 MV: 39 MV: 80 MV: 250 NOTE: * FOR ADULT BLACK MALES AND FEMALES, NORMAL WBC IS 2.9-7.7 K/ML * FOR ADULT BLACK MALES AND FEMALES, NORMAL RBC,HGB, AND HCT IS 5% LESS SOURCE FOR DATA: [employer] DYN 1800 OPERATION MANUAL( AUTOMATED BLOOD COUNTS AND DIFF.) APPENDIX B-3 Alb 4.7 g/dL 3.4-4.8 [facility] CLASSIFICATION CHOLESTEROL FO R ADULTS CHILDREN/ADOLESCENTS* DESIRABLE: <200 MG/DL <170 MG/DL BORDER-LINE HIGH RISK: 200-239 MG/DL 170-199 MG/DL HIGH RISK: >240 MG/DL >200 MG/DL CLASS. FOR PRIMARY LDL CHOL PREVENTION: LDL CHOL-CHILD/ADOLESCENTS* DESIRABLE: <130 MG/DL <110 MG/DL BORDERLINE-HIGH RISK: 130-159 MG/DL 110-129 MG/DL HIGH RISK: >160 MG/DL >130 MG/DL *CHILDREN AND ADOLESCENTS REPRESENTS INDIVIDUALA AGED 2-19 YEARS EXCLUSIVE. CHRONIC KIDNEY DISEASE STAGING PER NKF: MALE [...] mL/min Normal 80 and above >32 mL/min NormalNORMAL RANGES Age WBC RBC HGB HCT MCV PLT Adult M 4.1-10.9 4.20-6.30 12.0-18.0 37.0-51.0 80-97 140-440 Adult F 4.1-10.9 4.04-5.48 12.0-18.0 37.0-51.0 80-97 140-440 0- 1 Yr 5.0-20.0 3.9-5.9 15-18 MV: 44 MV: 91 MV: 277 2-9 Yr. 6.0-17.0 3.8-5.4 11-13 MV: 37 MV: 78 MV: 300 10 Yrs. 5.0-13.0 3.8-5.4 12-15 MV: 39 MV: 80 MV: 250 NOTE: * FOR ADULT BLACK MALES AND FEMALES, NORMAL WBC IS 2.9-7.7 K/ML * FOR ADULT BLACK MALES AND FEMALES, NORMAL RBC,HGB, AND HCT IS 5% LESS SOURCE FOR DATA: LegUP 1800 OPERATION MANUAL( AUTOMATED BLOOD COUNTS AND DIFF.) APPENDIX B-3 A/G Ratio 1.7 CALC [facility] CLASSIFICATION CHOLESTEROL FO R ADULTS CHILDREN/ADOLESCENTS* DESIRABLE: <200 MG/DL <170 MG/DL BORDER-LINE HIGH RISK: 200-239 MG/DL 170-199 MG/DL HIGH RISK: >240 MG/DL >200 MG/DL CLASS. FOR PRIMARY LDL CHOL PREVENTION: LDL CHOL-CHILD/ADOLESCENTS* DESIRABLE: <130 MG/DL <110 MG/DL BORDERLINE-HIGH RISK: 130-159 MG/DL 110-129 MG/DL HIGH RISK: >160 MG/DL >130 MG/DL *CHILDREN AND ADOLESCENTS REPRESENTS INDIVIDUALA AGED 2-19 YEARS EXCLUSIVE. CHRONIC KIDNEY DISEASE STAGING PER NKF: MALE [...] mL/min Normal 80 and above >32 mL/min NormalNORMAL RANGES Age WBC RBC HGB HCT MCV PLT Adult M 4.1-10.9 4.20-6.30 12.0-18.0 37.0-51.0 80-97 140-440 Adult F 4.1-10.9 4.04-5.48 12.0-18.0 37.0-51.0 80-97 140-440 0- 1 Yr 5.0-20.0 3.9-5.9 15-18 MV: 44 MV: 91 MV: 277 2-9 Yr. 6.0-17.0 3.8-5.4 11-13 MV: 37 MV: 78 MV: 300 10 Yrs. 5.0-13.0 3.8-5.4 12-15 MV: 39 MV: 80 MV: 250 NOTE: * FOR ADULT BLACK MALES AND FEMALES, NORMAL WBC IS 2.9-7.7 K/ML * FOR ADULT BLACK MALES AND FEMALES, NORMAL RBC,HGB, AND HCT IS 5% LESS SOURCE FOR DATA: TOMMY DYN 1800 OPERATION MANUAL( AUTOMATED BLOOD COUNTS AND DIFF.) APPENDIX B-3 Globulin 2.8 CALC [employer] ([facility] CLASSIFICATION CHOLESTEROL FO R ADULTS CHILDREN/ADOLESCENTS* DESIRABLE: <200 MG/DL <170 MG/DL BORDER-LINE HIGH RISK: 200-239 MG/DL 170-199 MG/DL HIGH RISK: >240 MG/DL >200 MG/DL CLASS. FOR PRIMARY LDL CHOL PREVENTION: LDL CHOL-CHILD/ADOLESCENTS* DESIRABLE: <130 MG/DL <110 MG/DL BORDERLINE-HIGH RISK: 130-159 MG/DL 110-129 MG/DL HIGH RISK: >160 MG/DL >130 MG/DL *CHILDREN AND ADOLESCENTS REPRESENTS INDIVIDUALA AGED 2-19 YEARS EXCLUSIVE. CHRONIC KIDNEY DISEASE STAGING PER NKF: MALE [...] mL/min Normal 80 and above >32 mL/min NormalNORMAL RANGES Age WBC RBC HGB HCT MCV PLT Adult M 4.1-10.9 4.20-6.30 12.0-18.0 37.0-51.0 80-97 140-440 Adult F 4.1-10.9 4.04-5.48 12.0-18.0 37.0-51.0 80-97 140-440 0- 1 Yr 5.0-20.0 3.9-5.9 15-18 MV: 44 MV: 91 MV: 277 2-9 Yr. 6.0-17.0 3.8-5.4 11-13 MV: 37 MV: 78 MV: 300 10 Yrs. 5.0-13.0 3.8-5.4 12-15 MV: 39 MV: 80 MV: 250 NOTE: * FOR ADULT BLACK MALES AND FEMALES, NORMAL WBC IS 2.9-7.7 K/ML * FOR ADULT BLACK MALES AND FEMALES, NORMAL RBC,HGB, AND HCT IS 5% LESS SOURCE FOR DATA: [employer] DYN 1800 OPERATION MANUAL( AUTOMATED BLOOD COUNTS AND DIFF.) APPENDIX B-3 Alt (SGPT) 10 U/L 0-[address] [facility] ([facility] CLASSIFICATION CHOLESTEROL FO R ADULTS CHILDREN/ADOLESCENTS* DESIRABLE: <200 MG/DL <170 MG/DL BORDER-LINE HIGH RISK: 200-239 MG/DL 170-199 MG/DL HIGH RISK: >240 MG/DL >200 MG/DL CLASS. FOR PRIMARY LDL CHOL PREVENTION: LDL CHOL-CHILD/ADOLESCENTS* DESIRABLE: <130 MG/DL <110 MG/DL BORDERLINE-HIGH RISK: 130-159 MG/DL 110-129 MG/DL HIGH RISK: >160 MG/DL >130 MG/DL *CHILDREN AND ADOLESCENTS REPRESENTS INDIVIDUALA AGED 2-19 YEARS EXCLUSIVE. CHRONIC KIDNEY DISEASE STAGING PER NKF: MALE [...] mL/min Normal 80 and above >32 mL/min NormalNORMAL RANGES Age WBC RBC HGB HCT MCV PLT Adult M 4.1-10.9 4.20-6.30 12.0-18.0 37.0-51.0 80-97 140-440 Adult F 4.1-10.9 4.04-5.48 12.0-18.0 37.0-51.0 80-97 140-440 0- 1 Yr 5.0-20.0 3.9-5.9 15-18 MV: 44 MV: 91 MV: 277 2-9 Yr. 6.0-17.0 3.8-5.4 11-13 MV: 37 MV: 78 MV: 300 10 Yrs. 5.0-13.0 3.8-5.4 12-15 MV: 39 MV: 80 MV: 250 NOTE: * FOR ADULT BLACK MALES AND FEMALES, NORMAL WBC IS 2.9-7.7 K/ML * FOR ADULT BLACK MALES AND FEMALES, NORMAL RBC,HGB, AND HCT IS 5% LESS SOURCE FOR DATA: TOMMY DYN 1800 OPERATION MANUAL( AUTOMATED BLOOD COUNTS AND DIFF.) APPENDIX B-3 Alp 271.9 U/L 35-129 Above high normal [facility] ([facility] CLASSIFICATION CHOLESTEROL FO R ADULTS CHILDREN/ADOLESCENTS* DESIRABLE: <200 MG/DL <170 MG/DL BORDER-LINE HIGH RISK: 200-239 MG/DL 170-199 MG/DL HIGH RISK: >240 MG/DL >200 MG/DL CLASS. FOR PRIMARY LDL CHOL PREVENTION: LDL CHOL-CHILD/ADOLESCENTS* DESIRABLE: <130 MG/DL <110 MG/DL BORDERLINE-HIGH RISK: 130-159 MG/DL 110-129 MG/DL HIGH RISK: >160 MG/DL >130 MG/DL *CHILDREN AND ADOLESCENTS REPRESENTS INDIVIDUALA AGED 2-19 YEARS EXCLUSIVE. CHRONIC KIDNEY DISEASE STAGING PER NKF: MALE [...] mL/min Normal 80 and above >32 mL/min NormalNORMAL RANGES Age WBC RBC HGB HCT MCV PLT Adult M 4.1-10.9 4.20-6.30 12.0-18.0 37.0-51.0 80-97 140-440 Adult F 4.1-10.9 4.04-5.48 12.0-18.0 37.0-51.0 80-97 140-440 0- 1 Yr 5.0-20.0 3.9-5.9 15-18 MV: 44 MV: 91 MV: 277 2-9 Yr. 6.0-17.0 3.8-5.4 11-13 MV: 37 MV: 78 MV: 300 10 Yrs. 5.0-13.0 3.8-5.4 12-15 MV: 39 MV: 80 MV: 250 NOTE: * FOR ADULT BLACK MALES AND FEMALES, NORMAL WBC IS 2.9-7.7 K/ML * FOR ADULT BLACK MALES AND FEMALES, NORMAL RBC,HGB, AND HCT IS 5% LESS SOURCE FOR DATA: [employer] DYN 1800 OPERATION MANUAL( AUTOMATED BLOOD COUNTS AND DIFF.) APPENDIX B-3 Ast (Sgot) 16 U/L 0-40 [facility] ([facility] CLASSIFICATION CHOLESTEROL FO R ADULTS CHILDREN/ADOLESCENTS* DESIRABLE: <200 MG/DL <170 MG/DL BORDER-LINE HIGH RISK: 200-239 MG/DL 170-199 MG/DL HIGH RISK: >240 MG/DL >200 MG/DL CLASS. FOR PRIMARY LDL CHOL PREVENTION: LDL CHOL-CHILD/ADOLESCENTS* DESIRABLE: <130 MG/DL <110 MG/DL BORDERLINE-HIGH RISK: 130-159 MG/DL 110-129 MG/DL HIGH RISK: >160 MG/DL >130 MG/DL *CHILDREN AND ADOLESCENTS REPRESENTS INDIVIDUALA AGED 2-19 YEARS EXCLUSIVE. CHRONIC KIDNEY DISEASE STAGING PER NKF: MALE [...] mL/min Normal 80 and above >32 mL/min NormalNORMAL RANGES Age WBC RBC HGB HCT MCV PLT Adult M 4.1-10.9 4.20-6.30 12.0-18.0 37.0-51.0 80-97 140-440 Adult F 4.1-10.9 4.04-5.48 12.0-18.0 37.0-51.0 80-97 140-440 0- 1 Yr 5.0-20.0 3.9-5.9 15-18 MV: 44 MV: 91 MV: 277 2-9 Yr. 6.0-17.0 3.8-5.4 11-13 MV: 37 MV: 78 MV: 300 10 Yrs. 5.0-13.0 3.8-5.4 12-15 MV: 39 MV: 80 MV: 250 NOTE: * FOR ADULT BLACK MALES AND FEMALES, NORMAL WBC IS 2.9-7.7 K/ML * FOR ADULT BLACK MALES AND FEMALES, NORMAL RBC,HGB, AND HCT IS 5% LESS SOURCE FOR DATA: Leg[employer] 1800 OPERATION MANUAL( AUTOMATED BLOOD COUNTS AND DIFF.) APPENDIX B-3 Osmolality-Calculated 289.5 CALC [facility] ([facility] CLASSIFICATION CHOLESTEROL FO R ADULTS CHILDREN/ADOLESCENTS* DESIRABLE: <200 MG/DL <170 MG/DL BORDER-LINE HIGH RISK: 200-239 MG/DL 170-199 MG/DL HIGH RISK: >240 MG/DL >200 MG/DL CLASS. FOR PRIMARY LDL CHOL PREVENTION: LDL CHOL-CHILD/ADOLESCENTS* DESIRABLE: <130 MG/DL <110 MG/DL BORDERLINE-HIGH RISK: 130-159 MG/DL 110-129 MG/DL HIGH RISK: >160 MG/DL >130 MG/DL *CHILDREN AND ADOLESCENTS REPRESENTS INDIVIDUALA AGED 2-19 YEARS EXCLUSIVE. CHRONIC KIDNEY DISEASE STAGING PER NKF: MALE [...] mL/min Normal 80 and above >32 mL/min NormalNORMAL RANGES Age WBC RBC HGB HCT MCV PLT Adult M 4.1-10.9 4.20-6.30 12.0-18.0 37.0-51.0 80-97 140-440 Adult F 4.1-10.9 4.04-5.48 12.0-18.0 37.0-51.0 80-97 140-440 0- 1 Yr 5.0-20.0 3.9-5.9 15-18 MV: 44 MV: 91 MV: 277 2-9 Yr. 6.0-17.0 3.8-5.4 11-13 MV: 37 MV: 78 MV: 300 10 Yrs. 5.0-13.0 3.8-5.4 12-15 MV: 39 MV: 80 MV: 250 NOTE: * FOR ADULT BLACK MALES AND FEMALES, NORMAL WBC IS 2.9-7.7 K/ML * FOR ADULT BLACK MALES AND FEMALES, NORMAL RBC,HGB, AND HCT IS 5% LESS SOURCE FOR DATA: Leg[employer] 1800 OPERATION MANUAL( AUTOMATED BLOOD COUNTS AND DIFF.) APPENDIX B-3 Tbili 0.75 mg/dL 0.0-1.2 [facility] ([facility] CLASSIFICATION CHOLESTEROL FO R ADULTS CHILDREN/ADOLESCENTS* DESIRABLE: <200 MG/DL <170 MG/DL BORDER-LINE HIGH RISK: 200-239 MG/DL 170-199 MG/DL HIGH RISK: >240 MG/DL >200 MG/DL CLASS. FOR PRIMARY LDL CHOL PREVENTION: LDL CHOL-CHILD/ADOLESCENTS* DESIRABLE: <130 MG/DL <110 MG/DL BORDERLINE-HIGH RISK: 130-159 MG/DL 110-129 MG/DL HIGH RISK: >160 MG/DL >130 MG/DL *CHILDREN AND ADOLESCENTS REPRESENTS INDIVIDUALA AGED 2-19 YEARS EXCLUSIVE. CHRONIC KIDNEY DISEASE STAGING PER NKF: MALE [...] mL/min Normal 80 and above >32 mL/min NormalNORMAL RANGES Age WBC RBC HGB HCT MCV PLT Adult M 4.1-10.9 4.20-6.30 12.0-18.0 37.0-51.0 80-97 140-440 Adult F 4.1-10.9 4.04-5.48 12.0-18.0 37.0-51.0 80-97 140-440 0- 1 Yr 5.0-20.0 3.9-5.9 15-18 MV: 44 MV: 91 MV: 277 2-9 Yr. 6.0-17.0 3.8-5.4 11-13 MV: 37 MV: 78 MV: 300 10 Yrs. 5.0-13.0 3.8-5.4 12-15 MV: 39 MV: 80 MV: 250 NOTE: * FOR ADULT BLACK MALES AND FEMALES, NORMAL WBC IS 2.9-7.7 K/ML * FOR ADULT BLACK MALES AND FEMALES, NORMAL RBC,HGB, AND HCT IS 5% LESS SOURCE FOR DATA: [employer] DYN 1800 OPERATION MANUAL( AUTOMATED BLOOD COUNTS AND DIFF.) APPENDIX B-3 eGFR 26 # [facility] ( [facility] CKD-EPI Anion Gap 18 mmol/L [facility] ([facility] CLASSIFICATION CHOLESTEROL FO R ADULTS CHILDREN/ADOLESCENTS* DESIRABLE: <200 MG/DL <170 MG/DL BORDER-LINE HIGH RISK: 200-239 MG/DL 170-199 MG/DL HIGH RISK: >240 MG/DL >200 MG/DL CLASS. FOR PRIMARY LDL CHOL PREVENTION: LDL CHOL-CHILD/ADOLESCENTS* DESIRABLE: <130 MG/DL <110 MG/DL BORDERLINE-HIGH RISK: 130-159 MG/DL 110-129 MG/DL HIGH RISK: >160 MG/DL >130 MG/DL *CHILDREN AND ADOLESCENTS REPRESENTS INDIVIDUALA AGED 2-19 YEARS EXCLUSIVE. CHRONIC KIDNEY DISEASE STAGING PER NKF: MALE [...] mL/min Normal 80 and above >32 mL/min NormalNORMAL RANGES Age WBC RBC HGB HCT MCV PLT Adult M 4.1-10.9 4.20-6.30 12.0-18.0 37.0-51.0 80-97 140-440 Adult F 4.1-10.9 4.04-5.48 12.0-18.0 37.0-51.0 80-97 140-440 0- 1 Yr 5.0-20.0 3.9-5.9 15-18 MV: 44 MV: 91 MV: 277 2-9 Yr. 6.0-17.0 3.8-5.4 11-13 MV: 37 MV: 78 MV: 300 10 Yrs. 5.0-13.0 3.8-5.4 12-15 MV: 39 MV: 80 MV: 250 NOTE: * FOR ADULT BLACK MALES AND FEMALES, NORMAL WBC IS 2.9-7.7 K/ML * FOR ADULT BLACK MALES AND FEMALES, NORMAL RBC,HGB, AND HCT IS 5% LESS SOURCE FOR DATA: Leg[employer] 1800 OPERATION MANUAL( AUTOMATED BLOOD COUNTS AND DIFF.) APPENDIX B-3 eGFR Non-Afr. Lithuanian 23 # [facility] ([facility] CKD-EPI Procedure Social History Code Duration Value Status Description Data Source(s ) Alcohol intake 07/15/2020 12:00:00 AM EST Not Currently completed [facility] Smoking 07/15/2020 12:00:00 AM EST Former smoker completed Former smoker [facility] Vital Signs ID Date Data Source UNK Name Value Range Interpretation Code Description Data Source(s) Oxygen saturation in Arterial blood by Pulse oximetry 92 % 92 % [facility] ([facility] Body mass index (BMI) [Ratio] 34.4 kg/m2 34.4 k g/m2 [facility] ([facility] [place] body weight 100 [lb_av] 100 [lb_av] MAURISIO T ([facility] Body weight 173.00 [lb_av] 173.00 [lb_av] MAURIISO [place] ([facility] Body height 59.50 [in_i] 59.50 [in_i] [facility] ([facility] 4'11.50" Respiratory rate 14 /min 14 /min [facility] ( [facility] Heart rate 82 /min 82 /min [facility] ([facility] Body temperature 97.3 [degF] 97.3 [degF] [facility] ([facility] Diastolic blood pressure 68 mm[Hg] 68 mm[Hg] [facility] ([facility] Systolic blood pressure 118 mm[Hg] 118 mm[Hg] [facility] Body surface area Derived from formula 1.75 m2 1.[address] [facility] ([facility]) Body weight 79.607 kg 79.[address] [facility] ([facility]) [place]ulbert body weight 100 [lb_av] 100 [lb_av] MEDEN T ([facility]) Body mass index (BMI) [Ratio] 34.8 kg/m2 34.8 k g/m2 [facility] ([facility]) Body weight 175.50 [lb_av] 175.50 [lb_av] MEDEN T ([facility]) Body height 59.5 [in_i] 59.5 [in_i] [facility] ([facility]) 4" Diastolic blood pressure 56 mm[Hg] 56 mm[Hg] [facility] ([facility]) Systolic blood pressure 134 mm[Hg] 134 mm[Hg] [facility] ([facility]) Body surface area Derived from formula 1.75 m2 1.[address] [facility] ([facility]) Body weight 79.380 kg 79.[address] [facility] ([facility]) [place]ulbert body weight 100 [lb_av] 100 [lb_av] MEDEN T ([facility]) Body mass index (BMI) [Ratio] 34.8 kg/m2 34.8 k g/m2 [facility] ([facility]) Body weight 175.00 [lb_av] 175.00 [lb_av] MEDEN T ([facility]) Body height 59.5 [in_i] 59.5 [in_i] [facility] ([facility]) 4'11.50" Diastolic blood pressure 69 mm[Hg] 69 mm[Hg] [facility] ([facility], ) Systolic blood pressure 129 mm[Hg] 129 mm[Hg] M [facility] ([facility]) Oxygen saturation in Arterial blood by Pulse oximetry 97 % 97 % [facility] Body mass index (BMI) [Ratio] 35.35 kg/m2 35.35 kg/m2 [facility] Body weight 79.379 kg 79.379 kg [facility] Body height 149.9 cm 149.9 cm [facility] Heart rate 76 /min 76 /min [facility] Diastolic blood pressure 76 mm[Hg] 76 mm[Hg] [facility] Systolic blood pressure 134 mm[Hg] 134 mm[Hg] [facility] Body surface area Derived from formula 1.75 m2 1.[address] [facility] ([facility], ) Body weight 79.380 kg 79.[address] [facility] ([facility], ) Hulbert body weight 100 [lb_av] 100 [lb_av] MEDEN T ([facility], ) Body mass index (BMI) [Ratio] 34.8 kg/m2 34.8 k g/m2 [facility] ([facility], ) Body weight 175.00 [lb_av] 175.00 [lb_av] MEDEN T ([facility], ) Body height 59.5 [in_i] 59.5 [in_i] [facility] ([facility], ) " Diastolic blood pressure 80 mm[Hg] 80 mm[Hg] [facility] ([facility], ) Systolic blood pressure 110 mm[Hg] 110 mm[Hg] [facility], ) Body mass index (BMI) [Ratio] 36.5 kg/m2 36.5 k g/m2 [facility] ([facility] ) Body weight 184.00 [lb_av] 184.00 [lb_av] MEDEN T ([facility] ) Body height 59.5 [in_i] 59.5 [in_i] [facility] ([facility]) 4.50" Body temperature 97.1 [degF] 97.1 [degF] [facility] ([facility]) Oxygen saturation in Arterial blood by Pulse oximetry 97 % 97 % [facility] ([facility] Body mass index (BMI) [Ratio] 35.7 kg/m2 35.7 k g/m2 [facility] ([facility] [place]ulbert body weight 100 [lb_av] 100 [lb_av] MEDEN T ([facility] Body weight 180.00 [lb_av] 180.00 [lb_av] MED[facility] T ([facility] Body height 59.50 [in_i] 59.50 [in_i] [facility] ([facility] 4'.50" Respiratory rate 20 /min 20 /min [facility] ( [facility] Heart rate 78 /min 78 /min [facility] ([facility] Body temperature 97.0 [degF] 97.0 [degF] [facility] ([facility] Diastolic blood pressure 60 mm[Hg] 60 mm[Hg] [facility] ([facility] Systolic blood pressure 128 mm[Hg] 128 mm[Hg] M EDENT ([facility] Oxygen saturation in Arterial blood by Pulse oximetry 96 % 96 % [facility] ([facility] Body mass index (BMI) [Ratio] 35.7 kg/m2 35.7 k g/m2 [facility] ([facility] [place]ulbert body weight 100 [lb_av] 100 [lb_av] MEDEN T ([facility] Body weight 180.00 [lb_av] 180.00 [lb_av] MEDEN T ([facility] Body height 59.50 [in_i] 59.50 [in_i] [facility] ([facility] 4'11.50" Respiratory rate 16 /min 16 /min [facility] ( [facility] Heart rate 68 /min 68 /min [facility] ([facility] Body temperature 97.6 [degF] 97.6 [degF] [facility] ([facility] Diastolic blood pressure 62 mm[Hg] 62 mm[Hg] [facility] ([facility] Systolic blood pressure 108 mm[Hg] 108 mm[Hg] M EDENT ([facility] Oxygen saturation in Arterial blood by Pulse oximetry 98 % 98 % [facility] ([facility] Body mass index (BMI) [Ratio] 36.1 kg/m2 36.1 k g/m2 [facility] ([facility] [place]bert body weight 100 [lb_av] 100 [lb_av] MEDEN T ([facility] Body weight 182.00 [lb_av] 182.00 [lb_av] MEDEN T ([facility] Body height 59.50 [in_i] 59.50 [in_i] [facility] ([facility] 4'11.50" Respiratory rate 16 /min 16 /min [facility] ( [facility] Heart rate 52 /min 52 /min [facility] ([facility] Body temperature 97.4 [degF] 97.4 [degF] [facility] ([facility] Diastolic blood pressure 68 mm[Hg] 68 mm[Hg] [facility] ([facility] Systolic blood pressure 110 mm[Hg] 110 mm[Hg] M EDENT ([facility] Oxygen saturation in Arterial blood by Pulse oximetry 91 % 91 % [facility] ([facility] Body mass index (BMI) [Ratio] 37.5 kg/m2 37.5 k g/m2 [facility] ([facility] Body weight 189.00 [lb_av] 189.00 [lb_av] MEDEN T ([facility] Body height 59.50 [in_i] 59.50 [in_i] [facility] ([facility] 4'11.50" Respiratory rate 16 /min 16 /min [facility] ( [facility] Heart rate 70 /min 70 /min [facility] ([facility] Body temperature 97.1 [degF] 97.1 [degF] [facility] ([facility] Diastolic blood pressure 72 mm[Hg] 72 mm[Hg] [facility] ([facility] Systolic blood pressure 108 mm[Hg] 108 mm[Hg] M EDMARLEE ([facility] Oxygen saturation in Arterial blood by Pulse oximetry 99 % 99 % [facility] ([facility] Body mass index (BMI) [Ratio] 36.5 kg/m2 36.5 k g/m2 [facility] ([facility] Body weight 184.00 [lb_av] 184.00 [lb_av] MEDEN T ([facility] Body height 59.50 [in_i] 59.50 [in_i] [facility] ( [facility] 4'11.50" Respiratory rate 14 /min 14 /min [facility] ( [facility] Heart rate 76 /min 76 /min [facility] ([facility] Body temperature 98.0 [degF] 98.0 [degF] [facility] ([facility] Diastolic blood pressure 68 mm[Hg] 68 mm[Hg] [facility] ([facility] Systolic blood pressure 118 mm[Hg] 118 mm[Hg] M EDMAR[place] ([facility] Patient Treatment Plan of Care Planned Activity Planned Date Details Description Data Source (s) BD INSULIN SYRINGE U/F 31G X 5/16" 1 ML [facility] 07/07/2020 12:00:00 AM [facility] UNIFINE PENTIPS PLUS 31G X 6 MM [facility] 06/17/2020 12:00:00 AM [facility] Insulin Glargine 100 UNT/ML Injectable Solution [Lantu s] 06/10/2020 12:00:00 AM [facility] glimepiride 2 MG Oral Tablet 11/07/2019 12:00:00 AM EDT [facility] 24 HR metoprolol succinate 50 MG Extended Release Oral Tablet [Toprol] 10/19/2019 12:00:00 AM EDT [facility] Ascorbic Acid 250 MG / Iron Carbonyl 100 MG Oral Table t 05/14/2012 12:00:00 AM EDT [facility]
[2020-09-22] MEDS ORDERED: fentaNYL 100 MCG/2 ML INJECTION (J3010) As Ordered ONE (12:13)
[2020-09-22] MEDS ORDERED: propofoL 200 MG/20 ML VIAL As Ordered ONE (12:13)
[2020-09-22] MEDS ORDERED: LIDOCAINE 2% 100MG/5ML SDV (FOR ANES.) As Ordered ONE (12:13)
[2020-09-22] MEDS ORDERED: ePHEDrine SULFATE 25 MG/5 ML(5MG/ML) SYRINGE As Ordered ONE (12:22)
--- NOTE | 2020-09-22 12:34 | ROOR ---
Patient Name: Juana Doty Procedure Date: 09/22/2020 11:16 AM Date of : 1935 Age: 85 Room: [facility] Gender: Female Note Status: Finalized Procedure: Upper GI endoscopy Indications: Iron deficiency anemia Providers: DO Shira Alfaro MD: BONIFACIO WEST MD Requesting Provider: Medicines: Propofol per Anesthesia Complications: No immediate complications. Procedure: Pre-Anesthesia Assessment: - Prior to the procedure, a History and Physical was performed, and patient medications and allergies were reviewed. The patient is competent. The risks and benefits of the procedure and the sedation options and risks were discussed with the patient. All questions were answered and informed consent was obtained. Patient identification and proposed procedure were verified by the physician, the nurse, the salmon gillnet vessel operator and the explosive ordnance disposal technician in the endoscopy suite. Mental Status Examination: alert and oriented. Airway Examination: normal oropharyngeal airway and neck mobility. Respiratory Examination: clear to auscultation. CV Examination: normal. Prophylactic Antibiotics: The patient does not require prophylactic antibiotics. Prior Anticoagulants: The patient has taken no previous anticoagulant or antiplatelet agents. ASA Grade Assessment: II - A patient with mild systemic disease. After reviewing the risks and benefits, the patient was deemed in satisfactory condition to undergo the procedure. The anesthesia plan was to use monitored anesthesia care (MAC). Immediately prior to administration of medications, the patient was re-assessed for adequacy to receive sedatives. The heart rate, respiratory rate, oxygen saturations, blood pressure, adequacy of pulmonary ventilation, and response to care were monitored throughout the procedure. The physical status of the patient was re-assessed after the procedure. The Endoscope was introduced through the mouth, and advanced to the second part of duodenum. The upper GI endoscopy was accomplished without difficulty. The patient tolerated the procedure well. Findings: Four non-bleeding superficial gastric ulcers with adherent clot were found in the prepyloric region of the stomach. The largest lesion was 2 mm in largest dimension. Biopsies were taken with a cold forceps for histology. Estimated blood loss was minimal. The exam was otherwise without abnormality. Impression: - Non-bleeding gastric ulcers with adherent clot. Biopsied. - The examination was otherwise normal. Recommendation: - Patient has a contact number available for emergencies. The signs and symptoms of potential delayed complications were discussed with the patient. Return to normal activities tomorrow. Written discharge instructions were provided to the patient. - Await pathology results. - Return to my office at appointment to be scheduled. Procedure Code(s): --- Professional --- 37179, Esophagogastroduodenoscopy, flexible, transoral; with biopsy, single or multiple Diagnosis Code(s): --- Professional --- K25.4, Chronic or unspecified gastric ulcer with hemorrhage D50.9, Iron deficiency anemia, unspecified CPT copyright 2019 [employer]. All rights reserved. The codes documented in this report are preliminary and upon asphalt coater review may be revised to meet current compliance requirements. John Lopez DO 09/22/2020 12:34:13 PM Electronically signed by John Lopez DO Number of Addenda: 0 Note Initiated On: 09/22/2020 11:16 AM Estimated Blood Loss: Estimated blood loss was minimal.
--- NOTE | 2020-09-22 12:37 | ROOR ---
Patient Name: Juana Doty Procedure Date: 09/22/2020 11:19 AM Date of : 1935 Age: 85 Room: [facility] Gender: Female Note Status: Finalized Procedure: Colonoscopy Indications: Hematochezia Providers: DO Shira Alfaro MD: BONIFACIO WEST MD Requesting Provider: Medicines: Propofol per Anesthesia Complications: No immediate complications. Procedure: Pre-Anesthesia Assessment: - Prior to the procedure, a History and Physical was performed, and patient medications and allergies were reviewed. The patient is competent. The risks and benefits of the procedure and the sedation options and risks were discussed with the patient. All questions were answered and informed consent was obtained. Patient identification and proposed procedure were verified by the physician, the nurse, the cork molder and the solder technician in the endoscopy suite. Mental Status Examination: alert and oriented. Airway Examination: normal oropharyngeal airway and neck mobility. Respiratory Examination: clear to auscultation. CV Examination: normal. Prophylactic Antibiotics: The patient does not require prophylactic antibiotics. Prior Anticoagulants: The patient has taken no previous anticoagulant or antiplatelet agents. ASA Grade Assessment: II - A patient with mild systemic disease. After reviewing the risks and benefits, the patient was deemed in satisfactory condition to undergo the procedure. The anesthesia plan was to use monitored anesthesia care (MAC). Immediately prior to administration of medications, the patient was re-assessed for adequacy to receive sedatives. The heart rate, respiratory rate, oxygen saturations, blood pressure, adequacy of pulmonary ventilation, and response to care were monitored throughout the procedure. The physical status of the patient was re-assessed after the procedure. The Colonoscope was introduced through the anus with the intention of advancing to the cecum. The scope was advanced to the sigmoid colon before the procedure was aborted. Medications were not given. The colonoscopy was performed without difficulty. The patient tolerated the procedure well. The colonoscopy was aborted due to the extreme difficulty of the procedure. The colonoscopy was aborted due to abnormal anatomy. Findings: Hemorrhoids were found on perianal exam. Non-bleeding internal hemorrhoids were found during perianal exam. The hemorrhoids were large and Grade III (internal hemorrhoids that prolapse but require manual reduction). Two bands were successfully placed. A slow ooze remained at the end of the procedure. Estimated blood loss was minimal. Impression: - The procedure was aborted due to the extreme difficulty of the procedure. - The procedure was aborted due to abnormal anatomy. - Hemorrhoids found on perianal exam. - Non-bleeding internal hemorrhoids. Banded. - No specimens collected. Recommendation: - Patient has a contact number available for emergencies. The signs and symptoms of potential delayed complications were discussed with the patient. Return to normal activities tomorrow. Written discharge instructions were provided to the patient. - Return to my office PRN. Procedure Code(s): --- Professional --- 69560, 52, Colonoscopy, flexible; with band ligation(s) (eg, hemorrhoids) Diagnosis Code(s): --- Professional --- Z53.8, Procedure and treatment not carried out for other reasons K64.2, Third degree hemorrhoids K92.1, Melena (includes Hematochezia) CPT copyright 2019 [employer]. All rights reserved. The codes documented in this report are preliminary and upon fuel assembler review may be revised to meet current compliance requirements. John Lopez DO 09/22/2020 12:36:52 PM Electronically signed by John Lopez DO Number of Addenda: 0 Note Initiated On: 09/22/2020 11:19 AM Estimated Blood Loss: Estimated blood loss was minimal.
[2020-09-22 13:00] VITALS: BP 159/73
== END 2020-09-22 13:10 | disposition home or self-care (01) ==
LOC: M OPP 10:55
PROVIDERS: ATTEND Surgery
DX: K92.1 Melena (principal); D50.9 Iron deficiency anemia, unspecified; K64.2 Third degree hemorrhoids; K25.4 Chronic or unspecified gastric ulcer with hemorrhage; D13.1 Benign neoplasm of stomach; I10 Essential (primary) hypertension; E78.5 Hyperlipidemia, unspecified; E03.9 Hypothyroidism, unspecified; R12 Heartburn; M19.90 Unspecified osteoarthritis, unspecified site; M81.0 Age-related osteoporosis without current pathological fracture; Z95.0 Presence of cardiac pacemaker; Z96.653 Presence of artificial knee joint, bilateral; Z88.5 Allergy status to narcotic agent; Z91.040 Latex allergy status; Z91.09 Other allergy status, other than to drugs and biological substances; Z79.82 Long term (current) use of aspirin; Z79.899 Other long term (current) drug therapy
CPT/HCPCS: 43239; 45398; 88305; J3010

== ENCOUNTER → 2020-10-25 | Outpatient (REF) | payer MEDICARE, OTHER ==
[~2020-10-25] MED LIST changes: +ASPI-569 PO; -ASPI81TAEC PO; +MAGN250T11 PO; -NS 1,000 ML IV ONE
== END ==
LOC: M LAB REF 15:37
PROVIDERS: ATTEND Physician Assistant
DX: D04.22 Carcinoma in situ of skin of left ear and external auricular canal (principal); B07.9 Viral wart, unspecified

== ENCOUNTER → 2020-10-27 | Outpatient (REF) | payer MEDICARE, OTHER ==
[2020-10-27 12:50] LABS: HEMATOCRIT 35.3 % (36.0-47.0); HEMOGLOBIN 10.9 g/dl (12.0-15.5); MEAN CORPUSCULAR HEMOGLOBIN 31.9 pg (27.0-33.0); MEAN CORPUSCULAR HGB CONC 30.9 g/dl (32.0-36.5); MEAN CORPUSCULAR VOLUME 103.2 fl (80.0-96.0); PLATELET COUNT, AUTOMATED 264 10^3/uL (150-450); RED BLOOD COUNT 3.42 10^6/uL (4.00-5.40); WHITE BLOOD COUNT 5.8 10^3/uL (4.0-10.0)
[2020-10-27 13:28] LABS: CALCIUM LEVEL 9.6 MG/DL (8.8-10.2); CREATININE FOR GFR 1.99 MG/DL (0.55-1.30); GLOMERULAR FILTRATION RATE 25.5 (>32); POTASSIUM SERUM 4.9 MEQ/L (3.5-5.1)
== END ==
LOC: M LABDRWAD 12:32
PROVIDERS: ATTEND Physician Assistant
DX: E11.21 Type 2 diabetes mellitus with diabetic nephropathy (principal); I48.20 Chronic atrial fibrillation, unspecified

== ENCOUNTER → 2020-11-02 | Outpatient (REF) | payer MEDICARE, OTHER | LOC: M LAB REF 19:17 | PROVIDERS: ATTEND Dermatology | DX: D23.4 Other benign neoplasm of skin of scalp and neck (principal) ==

== ENCOUNTER 2020-11-22 12:27 | Emergency (ER) | payer MEDICARE, OTHER ==
[~2020-11-22] VITALS: Ht 152.4 cm; Wt 83.6 kg
--- NOTE | 2020-11-22 15:36 | CR.PDOC ---
General Date of Consultation: Nov 22, 2020 Attending Physician: TITA CAPONE MD Consultation REASON FOR CONSULTATION/CHIEF COMPLAINT: Scalp bleeding HISTORY OF PRESENT ILLNESS: Patient is an 85 year old female who has past medical history of atrial fib on aspirin 325mg daily without anticoagulation presented to the ER due to concerns of scalp bleeding/hematoma reported to start since 11/18/2020. Dermatology team has been consulted by ER provider. 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 She reported that she has no bleeding on the way home on 11/18/2020. Patient reported that she started having bleeding from scalp upon arrival at home. She reported the bleeding has been getting worse gradually. She reported that she has been taking Aspirin 325mg daily without stopping the medication recently. She reported history of easy bleeding. Denies family history of bleeding disorder or any blood disorder that she knows of. She denies being on any other blood thinners. Patient and daughter at bedside reported her scalp bleeding has stopped in the ER after DORIAN-wrap were applied. ALLERGIES: Please see below. HOME MEDICATIONS: Please see below. 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 SOCIAL HISTORY: Tobacco use: Non-smoker REVIEW OF SYSTEMS: HEENT: Scalp bleeding CARDIOVASCULAR: Positive for atrial fibrillation GASTROINTESTINAL: Positive for history of GI bleed. Positive for heart burn. SKIN: Positive for scalp bleeding. Positive for history of squamous cell carcino ma PSYCHIATRIC: Positive for depression ENDOCRINE: Positive for history of diabetes and hypothyroidism HEMATOLOGIC/LYMPHATIC: Reported history of prolonged bleeding time. Denies bleeding disorder diagnosis ALLERGIC/IMMUNOLOGIC: Allergy to codeine, latex, and [place] tree PHYSICAL EXAMINATION: VITAL SIGNS: Please see below. GENERAL APPEARANCE: Alert and awake, not in acute distress HEENT: Dried blood across frontal forehead on top of a hematoma. Prolene sutures in frontal forehead embedded in dried blood. RESPIRATORY: Clear to auscultation bilaterally. No labored breathing. CARDIOVASCULAR: Regular rate and rhythm EXTREMITIES: Moving all 4 extremities spontaneously NEUROLOGICAL: Alert and awake. Able to carry conversation. No obvious dysarthria noted. PSYCHIATRIC: Mood appropriate to situation LABORATORY DATA: Please see below. ASSESSMENT/PLAN: 1. Hematoma of frontal head region, likely associated with 325mg daily use of aspirin. Per discussion with preceptor attending, patient should return to the ER tonight for evaluation and possible further management. The above was discussed with patient over the phone and patient verbalized agreement. Discussed with patient that she should discuss with her primary care provider regarding aspirin use, and that before she takes her aspirin 325mg tomorrow, she should call her outpatient primary care provider to see if her PCP would allow h er to forego 3 doses of aspirin 325mg (3 days). All the above were discussed with patient in generic terms. The above findings, exams, assessments, and plans were discussed with preceptor attending on 11/22/2020 afternoon. The above assessments and plans were discussed with emergency room PA provider around 5PM on 11/22/2020. 7 pm - The patient arrived back in the ED for re-evaluation by Dr. Capone. The wrap was taken down along with bandaging and the area was cleaned. - Area was cleaned - Crusted areas were gently removed with gauze wetted with saline and H202 - No signs of infection were present - No active bleeding appreciated - This is dried blood crust mixed with her hair, no expanding hematoma present - Education to patient and son, we will still see her back tomorrow morning in derm clinic to clean through the rest of her hair and dried blood - Obtain CBC prior to discharge from the ED Note: This note pertains to both visits from 11/22/20 in the ED at [facility]. Thank you for this consultation. Tita Capone MD [facility] [phone] (c) [phone] (w) Vital Signs/I&O Vital Signs Date Time Temp Pulse Resp B/P (MAP) Pulse Ox O2 Delivery O2 Flow Rate FiO2 11/22/20 12:28 97.6 71 16 140/72 (94) 97 Room Air Allergies Coded Allergies: latex (Verified Allergy, Severe, Anaphylaxis, 09/13/20) [place] Tree (Verified Allergy, Unknown, 09/13/20) codeine (Verified Adverse Reaction, Intermediate, Dizziness, Blurred Vision, Headache, Dry Mouth, 09/13/20) Home Medications Scheduled Allopurinol (Zyloprim) 300 Mg Tab, 300 MG PO QHS, (Reported) Aspirin (Aspirin) 325 Mg Tablet, 325 MG PO DAILY for fever for 30 Days, #30 (Reported) Calcium Carbonate/Vitamin D3 (Calcium 600 + Vit D 400 Softgl) 1 Each Capsule, 1 CAP PO BID, (Reported) Ferrous Sulfate (Ferrous Sulfate) 325 Mg Tab, 325 MG PO BID, (Reported) Furosemide (Furosemide) 40 Mg Tablet, 40 MG PO DAILY, #30 Glimepiride (Glimepiride) 2 Mg Tablet, 2 MG PO DAILY, (Reported) Insulin Glargine,Hum.rec.anlog (Lantus Solostar) 100 Unit/1 Ml Insuln.pen, 15 UNIT SC DAILY for 30 Days, #5 (Reported) Levothyroxine Sodium (Synthroid) 75 Mcg Tab, 1 TAB PO DAILY, (Reported) Loratadine (Loratadine) 10 Mg Tablet, 10 MG PO DAILY, (Reported) Magnesium Oxide (Magnesium Oxide) 250 Mg Tablet, 250 MG PO DAILY for 30 Days, #30 (Reported) Metoprolol Succinate (Toprol Xl) 50 Mg Tab, 50 MG PO TID, (Reported) Omeprazole (Omeprazole) 20 Mg Capsule.dr, 40 MG PO DAILY, (Reported) Spironolactone (Spironolactone) 25 Mg Tablet, 1 TAB PO BID, (Reported) Sucralfate (Sucralfate) 1 Gm Tablet, 1 GM PO ACHS, (Reported) Scheduled PRN Cholecalciferol (Vitamin D3) (Vitamin D3) 1,000 Unit Tablet, 2,000 UNITS PO DAILY PRN for daily, (Reported) Fluticasone Propionate (Flonase Allergy Relief) 50 Mcg/Act Spr, 1 SPRAY NARES DAILY PRN for NASAL CONGESTION, (Reported) WILLA KRUGER DO Nov 22, 2020 15:36 TITA CAPONE MD Nov 22, 2020 19:06
[2020-11-22 15:50] VITALS: BP 127/59
== END 2020-11-22 16:06 | disposition home or self-care (01) ==
LOC: M ED 12:27
DX: L76.21 Postprocedural hemorrhage of skin and subcutaneous tissue following a dermatologic procedure (principal); E11.9 Type 2 diabetes mellitus without complications; I50.9 Heart failure, unspecified; J45.909 Unspecified asthma, uncomplicated; N18.9 Chronic kidney disease, unspecified; I48.91 Unspecified atrial fibrillation; K21.9 Gastro-esophageal reflux disease without esophagitis; Z87.19 Personal history of other diseases of the digestive system; Z85.828 Personal history of other malignant neoplasm of skin; Z95.0 Presence of cardiac pacemaker; Z88.5 Allergy status to narcotic agent; Z91.040 Latex allergy status; Z79.899 Other long term (current) drug therapy; Z79.82 Long term (current) use of aspirin; Z79.4 Long term (current) use of insulin; Z79.890 Hormone replacement therapy

== ENCOUNTER 2020-11-22 20:02 | Emergency (ER) | payer MEDICARE, OTHER ==
[~2020-11-22] VITALS: Ht 149.9 cm; Wt 83.9 kg
[2020-11-22 20:03] VITALS: BP 138/67
[2020-11-22 20:49] LABS: HEMATOCRIT 32.2 % (36.0-47.0); HEMOGLOBIN 9.8 g/dl (12.0-15.5); MEAN CORPUSCULAR HEMOGLOBIN 31.5 pg (27.0-33.0); MEAN CORPUSCULAR HGB CONC 30.4 g/dl (32.0-36.5); MEAN CORPUSCULAR VOLUME 103.5 fl (80.0-96.0); PLATELET COUNT, AUTOMATED 225 10^3/uL (150-450); RED BLOOD COUNT 3.11 10^6/uL (4.00-5.40); WHITE BLOOD COUNT 6.3 10^3/uL (4.0-10.0)
--- NOTE | 2020-11-22 21:15 | CR.PDOC ---
General Date of Consultation: Nov 22, 2020 Attending Physician: TITA CAPONE MD Consultation DUPLICATE ENCOUNTER: The patient arrived back in the ED for re-evaluation by Dr. Capone. The wrap was taken down along with bandaging and the area was cleaned. - Area was cleaned - Crusted areas were gently removed with gauze wetted with saline and H202 - No signs of infection were present - No active bleeding appreciated - This is dried blood crust mixed with her hair, no expanding hematoma present - Education to patient and son, we will still see her back tomorrow morning in derm clinic to clean through the rest of her hair and dried blood - Obtained CBC prior to discharge from the ED - will need follow up with primary, patient and son aware - Patient to call shrub grower in morning before AM dose of ASA 325 mg to see if she can hold medication for 2-3 days, she is aware to discuss with shrub grower first Disposition: Discharge with plan to see patient in morning in derm clinic, she already has an appointment. Tita Capone MD [facility] [phone] (w) [phone] (c) Vital Signs/I&O Vital Signs Date Time Temp Pulse Resp B/P (MAP) Pulse Ox O2 Delivery O2 Flow Rate FiO2 11/22/20 20:52 11/22/20 20:03 97.2 84 20 96 Room Air Laboratory Data Labs 24H Laboratory Tests 2 11/22/20 20:42: Nucleated Red Blood Cells % (auto) 0.0 CBC/BMP Laboratory Tests 11/22/20 20:42 Allergies Coded Allergies: latex (Verified Allergy, Severe, Anaphylaxis, 09/13/20) [place] (Verified Allergy, Unknown, 09/13/20) codeine (Verified Adverse Reaction, Intermediate, Dizziness, Blurred Vision, Headache, Dry Mouth, 09/13/20) Home Medications Scheduled Allopurinol (Zyloprim) 300 Mg Tab, 300 MG PO QHS, (Reported) Aspirin (Aspirin) 325 Mg Tablet, 325 MG PO DAILY for fever for 30 Days, #30 (Reported) Calcium Carbonate/Vitamin D3 (Calcium 600 + Vit D 400 Softgl) 1 Each Capsule, 1 CAP PO BID, (Reported) Ferrous Sulfate (Ferrous Sulfate) 325 Mg Tab, 325 MG PO BID, (Reported) Furosemide (Furosemide) 40 Mg Tablet, 40 MG PO DAILY, #30 Glimepiride (Glimepiride) 2 Mg Tablet, 2 MG PO DAILY, (Reported) Insulin Glargine,Hum.rec.anlog (Lantus Solostar) 100 Unit/1 Ml Insuln.pen, 15 UNIT SC DAILY for 30 Days, #5 (Reported) Levothyroxine Sodium (Synthroid) 75 Mcg Tab, 1 TAB PO DAILY, (Reported) Loratadine (Loratadine) 10 Mg Tablet, 10 MG PO DAILY, (Reported) Magnesium Oxide (Magnesium Oxide) 250 Mg Tablet, 250 MG PO DAILY for 30 Days, #30 (Reported) Metoprolol Succinate (Toprol Xl) 50 Mg Tab, 50 MG PO TID, (Reported) Omeprazole (Omeprazole) 20 Mg Capsule.dr, 40 MG PO DAILY, (Reported) Spironolactone (Spironolactone) 25 Mg Tablet, 1 TAB PO BID, (Reported) Sucralfate (Sucralfate) 1 Gm Tablet, 1 GM PO ACHS, (Reported) Scheduled PRN Cholecalciferol (Vitamin D3) (Vitamin D3) 1,000 Unit Tablet, 2,000 UNITS PO DAILY PRN for daily, (Reported) Fluticasone Propionate (Flonase Allergy Relief) 50 Mcg/Act Spr, 1 SPRAY NARES DAILY PRN for NASAL CONGESTION, (Reported) TITA CAPONE MD Nov 22, 2020 21:15
== END 2020-11-22 21:43 | disposition home or self-care (01) ==
LOC: M ED 20:02
DX: L76.21 Postprocedural hemorrhage of skin and subcutaneous tissue following a dermatologic procedure (principal); I50.9 Heart failure, unspecified; Z88.5 Allergy status to narcotic agent; Z91.040 Latex allergy status; Z91.048 Other nonmedicinal substance allergy status; Z79.899 Other long term (current) drug therapy; Z79.82 Long term (current) use of aspirin; Z79.890 Hormone replacement therapy; Z79.4 Long term (current) use of insulin

== ENCOUNTER → 2020-12-07 | Outpatient (REF) | payer MEDICARE, OTHER ==
[2020-12-07 19:00] LABS: PERCENT SATURATION 16.4 % (13.2-45.0)
== END ==
LOC: M LAB REF 17:12
PROVIDERS: ATTEND Internal Medicine Nephrology
DX: D50.9 Iron deficiency anemia, unspecified (principal)

== ENCOUNTER → 2020-12-18 | Outpatient (CLI) | payer MEDICARE, OTHER ==
--- NOTE | 2020-12-18 11:53 | REP ---
INDICATION: CALCULUS OF KIDNEY COMPARISON: 10/29/2018. TECHNIQUE: CT Scan of the abdomen and pelvis was performed without intravenous contrast. Sagittal and coronal reconstruction images performed. FINDINGS: Lung bases: Unremarkable. Liver: Grossly unremarkable. Gallbladder: Prior cholecystectomy. Spleen: Grossly unremarkable. Adrenals: Normal. Pancreas: Grossly unremarkable.. Kidneys: No hydronephrosis or nephrolithiasis. Ureters demonstrate no dilatation or calculus. Multiple cystic structures are seen of both kidneys. The largest is in the left lower pole measuring approximately 4.9 cm in diameter. Along the medial aspect of that cyst there appears to be a hyperdense cyst approximately 1.4 cm in diameter, another is seen in the upper pole the right kidney 1.3 cm in diameter. 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 Small and large bowel: There is colonic diverticulosis. Free fluid: There is mild free fluid in the abdomen and pelvis. Abdominal aorta: No aneurysm. Adenopathy: None. Appendix: Prior appendectomy. Osseous structures: There are degenerative changes of the spine without compression deformity. Pelvis: No mass. No bladder calculus seen. Prior hysterectomy. Clips are seen at the umbilicus within the abdominal wall likely from hernia surgery. There is a small adjacent fluid collection probably representing a seroma to the right of midline measuring approximately 2.8 x 1.6 cm. Dilated venous structure is seen in the right inguinal region. IMPRESSION: No nephrolithiasis or evidence of hydroureteronephrosis. Multiple bilateral renal cysts. Mild free fluid in the abdomen and pelvis. 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 Postsurgical changes as above. A small fluid collection in the right anterior abdominal wall adjacent to surgical clips at the umbilicus likely represents a postsurgical seroma measuring 2.8 x 1.6 cm. <Electronically signed by John Choi > 12/18/20 [id number]
== END ==
LOC: M RAD 10:23
PROVIDERS: ATTEND Internal Medicine Nephrology
DX: N28.1 Cyst of kidney, acquired (principal); I86.8 Varicose veins of other specified sites; L76.32 Postprocedural hematoma of skin and subcutaneous tissue following other procedure; Z90.49 Acquired absence of other specified parts of digestive tract; K57.90 Diverticulosis of intestine, part unspecified, without perforation or abscess without bleeding

== ENCOUNTER 2021-02-03 15:52 | Inpatient (IN) | payer MEDICARE, OTHER ==
[~2021-02-03] VITALS: Ht 149.9 cm; Wt 82.6 kg
[~2021-02-03 15:52] MED LIST changes: +OMEP40CA4 PO; -OMEP40CA97 PO
[2021-02-03 17:05] LABS: BASO # 0.1 10^3/uL (0.0-0.2); BASO % 0.9 % (0.0-1.0); EOS # 0.1 10^3/uL (0.0-0.5); EOS % 2.5 % (0.0-3.0); HEMATOCRIT 30.4 % (36.0-47.0); HEMOGLOBIN 9.4 g/dl (12.0-15.5); LYMPH # 0.6 10^3/uL (1.5-5.0); LYMPH % 10.9 % (24.0-44.0); MEAN CORPUSCULAR HEMOGLOBIN 31.2 pg (27.0-33.0); MEAN CORPUSCULAR HGB CONC 30.9 g/dl (32.0-36.5); MONO # 0.5 10^3/uL (0.0-0.8); MONO % 9.3 % (2.0-8.0); NEUTROPHILS # 4.3 10^3/uL (1.5-8.5); NEUTROPHILS % 75.5 % (36.0-66.0); PLATELET COUNT, AUTOMATED 218 10^3/uL (150-450); RED BLOOD COUNT 3.01 10^6/uL (4.00-5.40); WHITE BLOOD COUNT 5.7 10^3/uL (4.0-10.0)
[2021-02-03 17:36] LABS: ALBUMIN 3.1 GM/DL (3.2-5.2); BILIRUBIN,DIRECT 0.2 MG/DL (0.0-0.2); BILIRUBIN,TOTAL 0.5 MG/DL (0.2-1.0); CALCIUM LEVEL 8.4 MG/DL (8.8-10.2); CK-MB VALUE MASS 5.6 NG/ML (<3.6); CREATININE FOR GFR 2.38 MG/DL (0.55-1.30); GLOMERULAR FILTRATION RATE 20.7 (>32); MB/CK RELATIVE INDEX 6.83 (< OR =4); POTASSIUM SERUM 5.9 MEQ/L (3.5-5.1); TOTAL PROTEIN 6.3 GM/DL (6.4-8.2); TROPONIN I 0.02 NG/ML (< 0.10)
--- NOTE | 2021-02-03 17:37 | REP ---
INDICATION: trauma COMPARISON: None. TECHNIQUE: Frontal view of the pelvis with neutral and frog lateral views of the right hip. FINDINGS: Age-related osteopenia and degenerative changes are appreciated. There is no evidence for acute fracture or dislocation. Calcifications consistent with significant peripheral vascular disease. Surgical clips in the left hemipelvis, intramedullary raúl in the visible portion of the left femoral shaft noted. IMPRESSION: Chronic changes. No evidence for acute fracture or dislocation. <Electronically signed by Mikal Field > 02/03/21 [id number]
--- NOTE | 2021-02-03 18:07 | ECGEPIP ---
[facility] - ED Test Date: 2021-02-03 Pat Name: ANTOINETTE GARCIA Department: Room: - Gender: Female Gold Layer: : 1935 Requested By: Awais Walsh Order Number: [id number] Reading MD: Salome Hernandez Measurements Intervals [place] Rate: 70 P: HI: QRS: -87 QRSD: 152 T: 68 QT: 466 QTc: 503 Interpretive Statements Ventricular-paced rhythm prolonged qtc prolonged qtc compared 06/21/19 Electronically Signed on 02-03-2021 18:07:30 EDT by Salome Hernandez
[2021-02-03] MEDS ORDERED: FURO40TA2 PO (18:56)
[2021-02-03] MEDS ORDERED: AMMO12LO TOP (18:56)
[2021-02-03] MEDS ORDERED: BAYE325T16 PO (18:56)
[2021-02-03] MEDS ORDERED: MAALOX 30 ML SUSP *UDC PO PRN (19:25)
[2021-02-03 19:30] LABS: RSV AMPLIFICATION NEGATIVE (NEGATIVE)
[2021-02-03] MEDS: NS 1,000 ML IV SCH ×2 (19:48→23:26)
[2021-02-03] MEDS: SUCRALFATE SUSP 1GM/10ML UD PO SCH (19:48)
[2021-02-03] MEDS ORDERED: GLUCAGON INJ 1MG VIAL SC PRN (19:50)
[2021-02-03] MEDS ORDERED: DEXTROSE 50% 50 ML SYRINGE IV PRN (19:50)
[2021-02-03] MEDS ORDERED: GLUCOSE 4GM CHEW TABLET PO PRN (19:50)
[2021-02-03] MEDS ORDERED: allopurinoL 300 MG TAB PO SCH (21:00)
[2021-02-03] MEDS ORDERED: METOPROLOL SUCC (TopROL XL) 50MG **XL** TAB PO SCH (21:00)
[2021-02-03] MEDS: LEVEMIR (INSULIN DETEMIR) 1 UNITS/0.01ML SC SCH (21:05)
[2021-02-03] MEDS: PANTOPRAZOLE 40MG VIAL (C9113 PER 1) IV SCH (21:06)
--- NOTE | 2021-02-03 21:34 | HPEPDOC ---
[facility] Medical History & Physical Date of Admission Feb 03, 2021 Date of Service: Feb 03, 2021 Primary Care Physician: LUCILLE WEST MD Attending Physician: SAM ALFORD MD MPH History and Physical CHIEF COMPLAINT: Mechanical Fall at home HISTORY OF PRESENT ILLNESS: Ms. Doty is an 85-year-old female who is brought to the ER by EMS after she caught her pants leg on the bottom step outside her home. She landed on her left side on top of her cane and tried to get up by rolling to her right side. She found she could not get up and pressed her Lifeline button. She complained of bilateral lower leg pain and low back pain but x-rays of the hip and pelvis showed no acute fracture. She has been having difficulty with right lower extremity pain, which her primary care felt was secondary to nerve pain. He started her on 400 mg of gabapentin 3 times a day. She started taking this medication on Sunday. She began to experience nausea and vomiting and stopped taking the medication on Sunday. She said she felt a little bit better today and had no nausea or vomiting. She said she ate a pretty good breakfast and had her usual lunch. She said she has not had anything to drink since breakfast. She has a history of chronic kidney disease stage 3-4 with baseline creatinine being about 1.6-1.7. Creatinine in October was 1.99. Creatinine today is 2.38. BUNs 62, and GFR is decreased to 20.7. Patient also has a history of atrial fib, but is not on anticoagulation secondary to history of GI bleed. She is maintained on aspirin. She says the last time she had any rectal bleeding, was several months ago. She said it usually happens when she is constipated but denies any history of constipation in the recent weeks. Instead, she complains of loose stool and sometimes has incontinence of stool. This evening, in the ER, she was noted to have liquid bloody stool. Hemoglobin and hematocrit are 9.4 and 30.4. She says she had a colonoscopy and EGD about 3 months ago and everything was fine. She has a history of hemorrhoids, but no obvious enlarged external hemorrhoids were noted on exam this evening. Potassium was elevated at 5.9. She is type II diabetic and insulin-dependent. Testing glucose was 165. LFT was elevated with alkaline phosphatase at 200. Troponin was negative. EKG showed a paced rhythm. EMS noted some hypotension on arrival with blood pressure of 98/51. Blood pressure was initially decreased at 109/57. In ER. Recheck showed 146/65. Pulses remained in the 70s. She is afebrile with O2 sats of 96% on room air. PAST MEDICAL HISTORY: 1. Chronic kidney disease stage 3-4. 2. Atrial fib on regular dose aspirin. 3. Squamous cell carcinoma of the skin. 4. Anemia secondary to iron deficiency. 5. Congestive heart failure, diastolic. 6. Rheumatoid arthritis. 7. Gout. 8. Diabetes type 2, insulin-dependent. 9. Hypothyroidism. 10. Hypertension. 11. Hyperlipidemia. 12. GI bleed. 13. Peptic ulcer disease. 14. Peripheral neuropathy PAST SURGICAL HISTORY: 1. ORIF of the left hip. 2. Pacemaker placement. 3. Mohs procedure of the scalp. 4. Hysterectomy. 5. Bilateral knee replacement. 6. Foot surgery. 7. Breast biopsy. 8. Cholecystectomy. 9. Appendectomy SOCIAL HISTORY: Tobacco use.: Very remote history. Patient quit 55 years ago. ETOH: Occasional Illicit drug use: Denies Patient lives with: Her daughter FAMILY HISTORY: Patient's mother had a history of diabetes and her father had a history of diabetes and coronary artery disease. REVIEW OF SYSTEMS: Complete 10 point review systems is negative except as noted above PHYSICAL EXAMINATION: Patient is seen in the ER, lying on the stretcher. She was able to transfer from the stretcher to the bedside commode with minimal assist 1. She is alert and oriented x 3. HEENT is WNL. Neck is supple. Lungs are clear to auscultation. Heart regular rate and rhythm with murmur. Abdomen is soft, non- tender to palpation with bowel sounds positive. Rectal exam yields no engorged external hemorrhoids, but there is obvious active bleeding. Extremities with good ROM and strength equal bilaterally. . She has an area of light ecchymosis at the left lateral hip. Some swelling noted. Trace lower extremity edema. Pedal pulses are positive. Skin is warm and dry with no other obvious rash or lesion. Neuro: grossly intact. Psych: She is pleasant and cooperative. ASSESSMENT AND PLAN: 1. Gastrointestinal bleed with history of peptic ulcer disease on high-dose aspirin twice a day. We'll continue the patient on Protonix twice a day and home Carafate. Clear liquid diet. Will monitor hemoglobin and hematocrit closely. Patient might benefit from a surgical consult in the morning for possible colonoscopy. 2. Acute blood loss anemia with acute gastrointestinal bleed. Plan as outlined above. Monitor hemoglobin and hematocrit closely and transfuse if needed. 3. Mechanical fall at home. Will ask physical and occupational therapies to evaluate and treat. Fall precautions. 4. Atrial fibrillation on chronic aspirin. Hold aspirin for now with acute GI bleed. Continue metoprolol. Monitor on telemetry. 5. Acute kidney injury with chronic kidney disease secondary to prerenal causes with nausea and vomiting. Continue patient on very gentle IV fluids. Avoid nephrotoxic medications. Monitor Intake and output closely. Recheck renal function in the morning. 6. Diabetes type 2, insulin-dependent. Continue home glipizide and Lantus. Monitor blood glucose before meals and at bedtime and add sliding scale for use as needed. HbA1c October was 5.5. Patient will be continued on clear liquid diet for now. 7. Congestive heart failure, diastolic with preserved ejection fraction. Monitor intake and output closely on gentle IV fluids to avoid fluid volume overload. Holding home Lasix for now with acute kidney injury. 8. Hypertension, essential. Continuing patient on home metoprolol. Monitor with routine vital signs and adjust medications as needed based on trends. 9. Hypothyroid. Continue hormone replacement. Will check TSH in the morning. 10. Gout. Continue allopurinol. 11. Peripheral neuropathy with chronic pain in the right lower extremity. Patient stopped taking newly prescribed gabapentin. Tylenol available as needed. Continue supportive care. 12. DVT prophylaxis. We'll hold anticoagulants with active GI bleed. BHARTI do. CODE STATUS: CODE STATUS was discussed with the patient. He desires to be considered a DNR. She states her oldest son, Enzo, would act as her surrogate if she were unable to make her own decisions. Patient is considered high risk of further deterioration including possible hypovolemic shock. She is admitted for close observation and further evaluation and expected to remain at least one midnight. Vital Signs Vital Signs Date Time Temp Pulse Resp B/P (MAP) Pulse Ox O2 Delivery O2 Flow Rate FiO2 02/03/21 19:02 146/65 (92) 02/03/21 19:00 72 02/03/21 18:45 16 02/03/21 18:37 97 02/03/21 16:04 97.7 02/03/21 15:56 Room Air Laboratory Data Labs 24H Laboratory Tests 2 02/03/21 16:40: Immature Granulocyte % (Auto) 0.9, Neutrophils (%) (Auto) 75.5H, Lymphocytes (%) (Auto) 10.9L, Monocytes (%) (Auto) 9.3H, Eosinophils (%) (Auto) 2.5, Basophils (%) (Auto) 0.9, Neutrophils # (Auto) 4.3, Lymphocytes # (Auto) 0.6L, Monocytes # (Auto) 0.5, Eosinophils # (Auto) 0.1, Basophils # (Auto) 0.1, Nucleated Red Blood Cells % (auto) 0.0, Anion Gap 6L, Glomerular Filtration Rate 20.7L, Calcium Level 8.4L, Total Bilirubin 0.5, Direct Bilirubin 0.2, Aspartate Amino Transf (AST/SGOT) 13, Alanine Aminotransferase (ALT/SGPT) 14, Alkaline Phosphatase 200H, Total Creatine Kinase 82, Creatine Kinase MB 5.6H, Creatine Kinase MB Relative Index 6.83H, Troponin I 0.02, Total Protein 6.3L, Albumin 3.1L, Albumin/Globulin Ratio 1.0L 02/03/21 18:44: Coronavirus (COVID-19)(PCR) NEGATIVE, Influenza Type A (RT-PCR) NEGATIVE, Influenza Type B (RT-PCR) NEGATIVE, Respiratory Syncytial Virus (PCR) NEGATIVE CBC/BMP Laboratory Tests 02/03/21 16:40 Home Medications Scheduled Allopurinol (Zyloprim) 300 Mg Tab, 300 MG PO QHS Ammonium Lactate (Ammonium Lactate) 12% Lotion, 1 DOSE TOP QHS APPLY TO FEET Aspirin (Aspirin) 325 Mg Tablet, 325 MG PO DAILY Aspirin (Aspirin) 325 Mg Tablet, 650 MG PO QHS Calcium Carbonate/Vitamin D3 (Calcium 600 + Vit D 400 Softgl) 1 Each Capsule, 1 CAP PO BID Cholecalciferol (Vitamin D3) (Vitamin D3) 1,000 Unit Tablet, 2,000 UNITS PO DAILY Ferrous Sulfate (Ferrous Sulfate) 325 Mg Tab, 325 MG PO BID Furosemide (Furosemide) 40 Mg Tablet, 40 MG PO DAILY Glimepiride (Glimepiride) 2 Mg Tablet, 2 MG PO DAILY Insulin Glargine,Hum.rec.anlog (Lantus Solostar) 100 Unit/1 Ml Insuln.pen, 15 UNIT SC QPM Levothyroxine Sodium (Synthroid) 75 Mcg Tab, 75 MCG PO DAILY Loratadine (Loratadine) 10 Mg Tablet, 10 MG PO DAILY Magnesium Oxide (Magnesium Oxide) 250 Mg Tablet, 250 MG PO DAILY Metoprolol Succinate (Toprol Xl) 50 Mg Tab, 50 MG PO TID Omeprazole (Omeprazole) 20 Mg Capsule.dr, 40 MG PO DAILY Spironolactone (Spironolactone) 25 Mg Tablet, 25 MG PO BID TAKES MORNING AND DINNERTIME Sucralfate (Sucralfate) 1 Gm Tablet, 1 GM PO ACHS Scheduled PRN Fluticasone Propionate (Flonase Allergy Relief) 50 Mcg/Act Spr, 1 SPRAY NARES DAILY PRN for NASAL CONGESTION Allergies Coded Allergies: latex (Verified Allergy, Severe, Anaphylaxis, 02/03/21) [place] (Verified Allergy, Unknown, 02/03/21) codeine (Verified Adverse Reaction, Intermediate, Dizziness, Blurred Vision, Headache, Dry Mouth, 02/03/21) A-FIB/CHADSVASC A-FIB History Current/History of A-Fib/PAF?: Yes Current PO Anticoag Therapy: Yes JEFFY BA Feb 03, 2021 19:52
[2021-02-03 22:57] VITALS: BP 129/63
[2021-02-03] MEDS: HumaLOG INSULIN (NovoLOG) PER UNIT SC SCH (23:08)
[2021-02-03] MEDS: ACETAMINOPHEN TAB 650MG DOSE (2X325MG) PO PRN (23:25)
[2021-02-03] MEDS: FERROUS SULFATE 325MG TAB PO SCH (23:25)
[2021-02-04] VITALS (14 sets, daily range): BP systolic 108–138; BP diastolic 53–73
[2021-02-04 00:17] LABS: HEMATOCRIT 27.3 % (36.0-47.0); HEMOGLOBIN 8.5 g/dl (12.0-15.5)
[2021-02-04] MEDS: LEVOTHYROXINE 75MCG TABLET (0.075MG) PO SCH (06:07)
[2021-02-04 07:14] LABS: HEMATOCRIT 27.6 % (36.0-47.0); HEMOGLOBIN 8.5 g/dl (12.0-15.5); MEAN CORPUSCULAR HGB CONC 30.8 g/dl (32.0-36.5); MEAN CORPUSCULAR VOLUME 100.7 fl (80.0-96.0); PLATELET COUNT, AUTOMATED 213 10^3/uL (150-450); RED BLOOD COUNT 2.74 10^6/uL (4.00-5.40); WHITE BLOOD COUNT 4.4 10^3/uL (4.0-10.0)
[2021-02-04 07:25] LABS: INR 1.12; PROTHROMBIN TIME 14.6 SECONDS (12.5-14.3)
[2021-02-04] MEDS: HumaLOG INSULIN (NovoLOG) PER UNIT SC SCH ×4 (07:30→20:37)
[2021-02-04 07:55] LABS: CREATININE FOR GFR 2.11 MG/DL (0.55-1.30); GLOMERULAR FILTRATION RATE 23.8 (>32); MAGNESIUM LEVEL 2.2 MG/DL (1.8-2.4); POTASSIUM SERUM 4.8 MEQ/L (3.5-5.1); THYROID STIMULATING HORMONE 3.49 uIU/ML (0.358-3.740)
[2021-02-04] MEDS ORDERED: GLIMEPIRIDE 2 MG TAB PO SCH (08:00)
[2021-02-04] MEDS: NS 1,000 ML IV SCH (09:26)
[2021-02-04] MEDS: FERROUS SULFATE 325MG TAB PO SCH ×2 (09:38→21:39)
[2021-02-04] MEDS: LORATADINE 10 MG TAB PO SCH (09:38)
[2021-02-04] MEDS: PANTOPRAZOLE 40MG VIAL (C9113 PER 1) IV SCH ×2 (09:39→20:46)
[2021-02-04] MEDS: SUCRALFATE SUSP 1GM/10ML UD PO SCH ×4 (09:43→21:39)
[2021-02-04] MEDS: ACETAMINOPHEN TAB 650MG DOSE (2X325MG) PO PRN (09:44)
--- NOTE | 2021-02-04 11:16 | IPNPDOC ---
Text Note Date of Service The patient was seen on 02/04/21. NOTE Subjective Pt is feeling well today at bedside. She continues to have pain along her L lateral hip from her mechanical fall onto the area. She also complains of assoc L sided abdominal and back pain with movement. She admits to loose, black tar- like stools w blood, and hematuria since she has been hospitalized, however this is not new, Pt also has Hx of hemorrhoids. Pt c/o mild SOB and pain upon deep inspiration. She had PT today w good ambulation. Denies fatigue, weakness, dizziness, N/V, constipation, easy bruising, dry mouth, palpitations, chest pain, vision changes, BURRIS, dysuria, or pain w BM. Objective VITAL SIGNS: Please see below. GENERAL: Pleasant, A+Ox3. Patient sitting up in bed and appears to be comfortable, speaking in full sentences. HEENT: Atraumatic, normocephalic, CN III-XII intact b/l, EOMI, PERRLA, moist oral membranes, neck supple, no JVD CARDIOVASCULAR EXAMINATION: RRR, no murmurs, rubs, gallops RESPIRATORY EXAMINATION: CTA b/l, no wheezes, rales, rhonchi ABDOMINAL EXAMINATION: Tender to palpation in LLQ w radiation to L lower back. normoactive BS, ND, soft EXTREMITIES: no nail changes, cyanosis, lower extremities do not reveal any edema. Full ROM in lower extremity w secondary pain in L hip. MSK: tenderness to palpation along thoracic and lumbar paraspinal musculature SKIN: Ecchymosis present along L lateral hip w tenderness to palpation. no rash. normal turgor. normal temp. NEUROLOGICAL EXAMINATION: No focal deficits, sensation intact b/l. Assessment Pt is 85yo F who presented to ER d/t fall on her left side while walking w her cane, enabled lifealert for EMS. She has PMHx chronic dark stools for several months, Afib w rate control on high dose Aspirin twice daily and Metoprolol at home, anemia secondary to iron def managed w ferrous sulfate pills at home, diastolic CHF, RA, Gout, insulin-dependent DMT2, hypothyroidism, HTN, HLD, GI bleed, Peptic ulcer disease, peripheral neuropathy, hemorrhoids, mild bowel incontinence, restless legs. Pelvic/Hip X-ray in ER negative for acute fx, osteopenia present. Pt was admitted to hospital for further evaluation d/t amenia to determine macro vs microcytic etiology. Plan 1.Mechanical Fall: - Will continue PT/OT evaluation. -She does not report any head trauma, loss of consciousness during the fall. 2.Microcytic Anemia: - Order Serum ferritin, TIBC, transferrin saturation - Patient reports to have blood in her urine on conversation. A UA done showed gross hematuria. -Urology was consulted for the same reason. We highly appreciate their input and recommendations. - Will continue at home Ferrous Sulfate. 3.Macrocytic Anemia: Hgb+ Hct have decreased since admission- 9.4/30.4 (02/03/2021) to 8.5/27.6 (02/04/21morning). MCV of 100.7 (02/04) reveals macrocytosis. Patient was ordered blood transfusion. She did get 1 unit of blood transfused today. Will monitor Hgb+ Hct closely Patient's folate and vitamin B12 levels were ordered and they were normal. 4. Hematuria: -Patient reports to have gross hematuria going on since few months. -Repeat UA did show gross hematuria which confirms it. -Urology was consulted regarding the same. We highly appreciate the input and will follow their r recommendations 5. GI bleed w Hx peptic ulcer disease: High dose Aspirin twice a day was stopped temporarily. Continue Protonix twice a day and Carafate at home. Will continue on clear liquid diet. Will closely monitor Hgb+Hct Surgery Dr. Lopez was contacted regarding this patient, patient recently had an colonoscopy done and he does not think a repeat colonoscopy is going to change any of her diagnosis. 6. Atrial Fibrillation: Aspirin was held due to her acute blood loss and anemia. Will continue Metoprolol for rate control . Will resume Aspirin w/in 24 hrs. Will closely monitor telemetry. 7. CKD: Will continue gentle IV fluids, avoid nephrotoxic drugs (hold at home Lasix) 8. DMT2-insulin dependent: Patient is on insulin sliding scale -Patient takes insulin at home she is being given Levemir 15 units SQ at bedtime On hypoglycemic protocol 9..HTN: Will continue at home Metoprolol, monitor BP. 10..Hypothyroidism: TSH at 3.49 (02/04 morning), continue hormone replacement. 11..Gout: We will hold her home allopurinol for now given that it can cause macrocytosis 12. CHF, diastolic: Will continue gentle IV fluid to avoid vol overload. -IV fluids 100 mils per hour normal saline 13. Lumbar muscle strain Will continue with PT evaluation. 14..Peripheral Neuropathy Pt discontinued Gabapentin Sunday after one day of use d/t assoc N/V. Advised to use Tylenol as needed. 15. DVT prophylaxis: Will hold anticoagulants with active GI bleed. Teds and sequentials VS,Fishbone, I+O VS, Fishbone, I+O Laboratory Tests 02/03/21 16:40 02/04/21 00:02 02/04/21 07:02 Vital Signs Date Time Temp Pulse Resp B/P (MAP) Pulse Ox O2 Delivery O2 Flow Rate FiO2 02/04/21 06:00 98.4 73 16 122/65 (84) 98 Room Air I&O- Last 24 Hours up to 6 AM 02/04/21 06:00 Intake Total 1550 ml Output Total 600 ml Balance 950 ml GME ATTESTATION GME ATTESTATION My faculty preceptor for this patient encounter was physically present during the encounter and was fully available. All aspects of the patient interview, examination, medical decision making process, and medical care plan development were reviewed and approved by the faculty preceptor. The faculty preceptor is aware and concurs with the plan as stated in the body of this note and will a ttest to such by his/her cosignature. ATTENDING NOTE I, Marilin Tello, have independently examined this patient and performed my own physical exam, as well as reviewed the documentation and edited where necessary. I have discussed in detail with the resident / student the findings and plan of treatment as documented by the resident / student and edited their note. I agree with their findings and treatment plan and have edited their documentation. I will continue to follow the patient during this hospital stay. ZAYRA BLAS OMS-3 Feb 04, 2021 11:08 Domingo Anders MD Feb 04, 2021 20:03 MARILIN TELLO MD Feb 04, 2021 21:01
[2021-02-04 12:20] LABS: HEMATOCRIT 29.6 % (36.0-47.0); HEMOGLOBIN 8.9 g/dl (12.0-15.5)
--- NOTE | 2021-02-04 15:14 | REP ---
INDICATION: Hematuria COMPARISON: 06/21/2019 TECHNIQUE: Real time hernandez scale ultrasound examination using curved array transducer. FINDINGS: Right kidney measures 10.8 x 5.6 x 5.5 cm and demonstrates multiple cysts measuring up to approximately 2.0 cm diameter including few septated cysts. No hydronephrosis, nephrolithiasis, or obvious mass lesion. Left kidney measures 10.8 x 5.7 x 5.6 cm and also demonstrates multiple cysts measuring up to 5.3 cm without hydronephrosis, nephrolithiasis, or obvious mass lesion. The bladder is unremarkable in appearance. Incidental trace ascites in the perihepatic right upper quadrant. IMPRESSION: 1. Bilateral renal cysts all of which appear relatively simple. No hydronephrosis or nephrolithiasis. Findings are relatively stable as compared with prior ultrasound. However, the recent CT demonstrates an 1 cm round isoechoic lesion in the upper pole of the right kidney which is not definitively identified by ultrasound and small mass cannot be excluded. Pre and postcontrast CT of the abdomen should be considered for further investigation. 2. Incidental small amount of perihepatic ascites in the right upper quadrant. <Electronically signed by Mikal Field > 02/04/21 [id number]
--- NOTE | 2021-02-04 16:43 | SMCUROLCON ---
Urology Consultation General Date of Consultation 02/04/21 Reason For Consultation This patient is seen for hematuria and renal lesions noted on ct and us. History of Present Illness The patient is a -year-old with a past medical history for . Medications Current Medications Current Medications Medications (Trade) Dose Ordered Sig/Kj Route PRN Reason Start Time Stop Time Status Last Admin Dose Admin Acetaminophen (Tylenol Tab) 650 mg Q4H PRN PO MILD PAIN or TEMP > 101 02/03/21 19:25 02/04/21 09:44 Al Hydrox/Mg Hydrox/Simethicone (Mylanta) 30 ml DAILY PRN PO DYSPEPSIA 02/03/21 19:25 Allopurinol (Zyloprim) 300 mg QHS PO 02/03/21 21:00 02/03/21 23:24 Dextrose (Dextrose 50%) 25 ml ASDIRECTED PRN IV SEE LABEL COMMENTS 02/03/21 19:50 Ferrous Sulfate (Ferrous Sulfate) 325 mg BID PO 02/03/21 21:00 02/04/21 09:38 Glimepiride (Amaryl) 2 mg DAILY@0800 PO 02/04/21 08:00 02/04/21 09:38 Glucagon (Glucagon) 1 mg ASDIRECTED PRN SC SEE LABEL COMMENTS 02/03/21 19:50 Glucose (Glucose) 16 GM ASDIRECTED PRN PO SEE LABEL COMMENTS 02/03/21 19:50 Home Med (Med Rec Complete!) ASDIRECTED XX 02/03/21 19:00 02/03/21 18:59 DC Insulin Detemir (Levemir Insulin) 15 units QPM@1800 SC 02/03/21 18:00 02/03/21 21:05 Insulin Human Lispro (HumaLOG INSULIN) SEE PROTOCOL TABLE AC SC 02/04/21 07:30 02/04/21 13:46 Insulin Human Lispro (HumaLOG INSULIN) SEE PROTOCOL TABLE QHS SC 02/03/21 21:00 Levothyroxine Sodium (Synthroid) 75 mcg DAILY@0600 PO 02/04/21 06:00 02/04/21 06:07 Loratadine (Claritin) 10 mg DAILY PO 02/04/21 09:00 02/04/21 09:38 Metoprolol Succinate (TopROL XL) 50 mg TID PO 02/03/21 21:00 02/03/21 22:54 DC Metoprolol Succinate (TopROL XL) 50 mg TID@0600,1400,2200 PO 02/04/21 22:00 Pantoprazole Sodium (Protonix) 40 mg Q12H IV 02/03/21 20:00 02/04/21 09:39 Sodium Chloride 1,000 ml @ 100 mls/hr Q10H IV 02/03/21 19:25 02/04/21 09:52 DC 02/04/21 09:26 Sucralfate (Carafate Suspension) 1 gm ACHS PO 02/03/21 19:25 02/04/21 13:45 Allergies Allergies: Coded Allergies: latex (Verified Allergy, Severe, Anaphylaxis, 02/03/21) [place] (Verified Allergy, Unknown, 02/03/21) codeine (Verified Adverse Reaction, Intermediate, Dizziness, Blurred Vision, Headache, Dry Mouth, 02/03/21) Vital Signs/I&O Vital Signs Date Time Temp Pulse Resp B/P (MAP) Pulse Ox O2 Delivery O2 Flow Rate FiO2 02/04/21 15:26 98.0 71 19 124/60 100 Room Air I&O- Last 24 Hours up to 6 AM 02/04/21 06:00 Intake Total 1550 ml Output Total 600 ml Balance 950 ml Laboratory Data 24H Labs Laboratory Tests 2 02/03/21 16:40: Immature Granulocyte % (Auto) 0.9, Neutrophils (%) (Auto) 75.5H, Lymphocytes (%) (Auto) 10.9L, Monocytes (%) (Auto) 9.3H, Eosinophils (%) (Auto) 2.5, Basophils (%) (Auto) 0.9, Neutrophils # (Auto) 4.3, Lymphocytes # (Auto) 0.6L, Monocytes # (Auto) 0.5, Eosinophils # (Auto) 0.1, Basophils # (Auto) 0.1, Nucleated Red Blood Cells % (auto) 0.0, Anion Gap 6L, Glomerular Filtration Rate 20.7L, Nikko cium Level 8.4L, Total Bilirubin 0.5, Direct Bilirubin 0.2, Aspartate Amino Transf (AST/SGOT) 13, Alanine Aminotransferase (ALT/SGPT) 14, Alkaline Phosphatase 200H, Total Creatine Kinase 82, Creatine Kinase MB 5.6H, Creatine Kinase MB Relative Index 6.83H, Troponin I 0.02, Total Protein 6.3L, Albumin 3.1L, Albumin/Globulin Ratio 1.0L 02/03/21 18:44: Coronavirus (COVID-19)(PCR) NEGATIVE, Influenza Type A (RT-PCR) NEGATIVE, Influenza Type B (RT-PCR) NEGATIVE, Respiratory Syncytial Virus (PCR) NEGATIVE 02/03/21 20:54: Bedside Glucose (Misc Panel) 141H 02/03/21 23:07: Bedside Glucose (Misc Panel) 114H 02/04/21 07:02: Nucleated Red Blood Cells % (auto) 0.0, Prothrombin Time 14.6H, Prothromb Time International Ratio 1.12, Anion Gap 10, Glomerular Filtration Rate 23.8L, Calcium Level 8.0L, Magnesium Level 2.2, Vitamin B12 Level 281, Folate 14.0, Thyroid Stimulating Hormone (TSH) 3.490 02/04/21 08:55: Bedside Glucose (Misc Panel) 176H 02/04/21 11:54: Iron Level 148, Total Iron Binding Capacity 302, Transferrin % Saturation 49.0H, Ferritin 35 02/04/21 12:00: Urine Color REDH, Urine Appearance HAZY, Urine pH 6.0, Urine Specific [place] 1.012, Urine Protein 1+H, Urine Glucose (UA) NEGATIVE, Urine Ketones NEGATIVE, Urine Blood 3+H, Urine Nitrite NEGATIVE, Urine Bilirubin NEGATIVE, Urine Urobilinogen 2.0H, Urine Leukocyte Esterase NEGATIVE, Urine WBC (Auto) TNTCH, Urine RBC (Auto) TNTCH, Urine Hyaline Casts (Auto) 0, Urine Bacteria (Auto) 1+H, Urine Squamous Epithelial Cells 0, Urine Sperm (Auto) 02/04/21 12:33: Bedside Glucose (Misc Panel) 138H CBC/BMP Laboratory Tests 02/03/21 16:40 02/04/21 00:02 02/04/21 07:02 02/04/21 11:54 Microbiology Microbiology 02/04/21 Urine Culture, Received Pending Assessment I was asked to see pt regarding hematuria and renal lesions. 85yo woman. Admitted after a fall. Several ongoing medical issues. Gross hematuria. Ckd with creatinine 2.11. Creatinine 1.74 in 09/25. Ua shows tntc wbc and tntc rbc. Also, protein and bacteria. Renal us shows bl renal cysts. Ct without iv contrast shows what seem to be bl simple cysts and a hyperdense cyst in each kidney. I reviewed the imaging studies myself. Ct done without iv contrast given ckd. For same reason, mri with contrast can't be done. Nothing on imaging looks terribly worrisome by my eyes. Pt needs local cysto given gross hematuria. Urine cx pending. I am in my office currently. I reviewed the chart. I will see pt in person. Thank you. [phone] JIGAR IRBY MD Feb 04, 2021 16:43
[2021-02-04] MEDS: LEVEMIR (INSULIN DETEMIR) 1 UNITS/0.01ML SC SCH (17:33)
[2021-02-04] MEDS: METOPROLOL SUCC (TopROL XL) 50MG **XL** TAB PO SCH (21:39)
[2021-02-04 22:33] LABS: HEMATOCRIT 33.3 % (36.0-47.0); HEMOGLOBIN 10.3 g/dl (12.0-15.5)
[2021-02-05 02:00] VITALS: BP 97/56
[2021-02-05] MEDS: METOPROLOL SUCC (TopROL XL) 50MG **XL** TAB PO SCH ×3 (05:53→21:03)
[2021-02-05] MEDS: LEVOTHYROXINE 75MCG TABLET (0.075MG) PO SCH (05:53)
[2021-02-05 06:00] VITALS: BP 101/52
[2021-02-05 06:41] LABS: BASO # 0.1 10^3/uL (0.0-0.2); EOS # 0.1 10^3/uL (0.0-0.5); EOS % 2.4 % (0.0-3.0); HEMATOCRIT 31.4 % (36.0-47.0); HEMOGLOBIN 9.8 g/dl (12.0-15.5); LYMPH # 0.7 10^3/uL (1.5-5.0); LYMPH % 14.1 % (24.0-44.0); MEAN CORPUSCULAR HEMOGLOBIN 30.7 pg (27.0-33.0); MEAN CORPUSCULAR HGB CONC 31.2 g/dl (32.0-36.5); MEAN CORPUSCULAR VOLUME 98.4 fl (80.0-96.0); MONO # 0.6 10^3/uL (0.0-0.8); MONO % 11.1 % (2.0-8.0); NEUTROPHILS # 3.5 10^3/uL (1.5-8.5); NEUTROPHILS % 70.4 % (36.0-66.0); PLATELET COUNT, AUTOMATED 205 10^3/uL (150-450); RED BLOOD COUNT 3.19 10^6/uL (4.00-5.40)
[2021-02-05 06:50] LABS: INR 1.12; PROTHROMBIN TIME 14.6 SECONDS (12.5-14.3)
[2021-02-05 07:06] LABS: CALCIUM LEVEL 7.8 MG/DL (8.8-10.2); CREATININE FOR GFR 1.74 MG/DL (0.55-1.30); GLOMERULAR FILTRATION RATE 29.7 (>32); POTASSIUM SERUM 4.8 MEQ/L (3.5-5.1)
[2021-02-05] MEDS: HumaLOG INSULIN (NovoLOG) PER UNIT SC SCH ×4 (07:30→19:52)
[2021-02-05] MEDS: FERROUS SULFATE 325MG TAB PO SCH ×2 (08:27→20:17)
[2021-02-05] MEDS: LORATADINE 10 MG TAB PO SCH (08:28)
[2021-02-05] MEDS: PANTOPRAZOLE 40MG VIAL (C9113 PER 1) IV SCH ×2 (08:28→19:44)
[2021-02-05] MEDS: SUCRALFATE SUSP 1GM/10ML UD PO SCH ×4 (08:28→20:17)
[2021-02-05] MEDS: ACETAMINOPHEN TAB 650MG DOSE (2X325MG) PO PRN ×2 (08:34→14:02)
[2021-02-05 10:00] VITALS: BP 114/59
[2021-02-05 10:25] LABS: HEMOGLOBIN 10.2 g/dl (12.0-15.5)
[2021-02-05 14:00] VITALS: BP 120/60
--- NOTE | 2021-02-05 15:39 | IPNPDOC ---
Text Note Date of Service The patient was seen on 02/05/21. NOTE Subjective: Patient was examined at bedside today morning. Patient reports she does not have any pain in her back about the lateral hip on the left side if she is sitting still or laying in bed but if she is trying to move she does report mild pain in the left lateral thigh on walking on pain on the lateral side in bed. She still reports having paste like black tarry stools and hematuria. She denies having shortness of breath, abdominal pain, chest pain, difficulty urinating. Objective: General: Patient is alert and oriented x3, sitting in chair, no apparent distress. Cardiac: S1 and S2 normal, regular rate and rhythm, no murmurs appreciated. Respiratory: Clear bilateral breath sounds, no rhonchi /wheezes appreciated. Abdomen: Soft, positive bowel sounds appreciated in all 4 quadrants, no tenderness on palpation. Extremities: No pedal edema appreciated. Skin: Patient has bruise from her fall in the left lateral hip region tenderness to palpation. Assessment: 85-year-old female with past medical history of chronic dark stools, A. fib rate controlled with metoprolol and anticoagulation with high dose of aspirin, iron deficiency anemia on ferrous sulfate pills at home, valvular heart disease, RA, gout, IDDM, hypothyroidism, HTN, HDL, history of GI bleed, history of peptic ulcer disease, peripheral neuropathy, restless leg syndrome was brought in by EMS for due to fall on further questioning she reports she has had a mechanical fall, further testing in the ED did show patient is anemic and was admitted to hospital for further evaluation and management of her anemia. Plan: Mechanical fall: -Patient does not have any head trauma or loss of consciousness during the fall she only fell on her lateral side and has a bruise on her left lateral thigh. Anemia: -Patient has a history of iron deficiency anemia she is taking ferrous sulfate at home. -Repeat iron study shows her serum iron levels are normal. -Patient's MCV is 100, but her vitamin B12 and folate levels are normal. -She did receive 2 units of blood transfusion as her hemoglobin is low and with a history of heart disease -patient's hemoglobin today is 10.2 after the transfusion. Hematuria: -Patient reports to have blood in her urine going on since few months. -UA on admission did show she has gross hematuria. -Urology Dr. Becerril was consulted regarding this patient yesterday. We highly appreciate his input and will follow his recommendations. -The plan for her from her hematuria is to do cystoscopy outpatient to see what is the cause of her hematuria. Dark stools: Patient is on high-dose aspirin twice daily at home for her A. fib which was temporarily held. -Continue Protonix twice daily and Carafate Dr. Lopez was contacted regarding this patient patient recently had colonoscopy done and he does not think repeating colonoscopy will change any of the her diagnosis of the treatment. Atrial fibrillation: Aspirin was held due to acute blood loss and anemia. We will continue metoprolol for rate control. Patient is on telemetry. IDDM: Patient is on insulin sliding scale. We will continue Levemir 15 units subcu at bedtime. On hypoglycemic protocol. HTN: We will continue metoprolol Hypothyroidism: We will continue levothyroxine,. Gout: We will hold her allopurinol as it may cause macrocytosis. DVT prophylaxis: Teds and sequentials. We will hold anticoagulation for history of GI bleed. Disposition: If patient's hemoglobin is stable she will be considered for discharge tomorrow, with outpatient follow-up with urology for cystoscopy and further evaluation of her hematuria. VS,Fishbone, I+O VS, Fishbone, I+O Laboratory Tests 02/04/21 22:19 02/05/21 06:10 02/05/21 10:16 Vital Signs Date Time Temp Pulse Resp B/P (MAP) Pulse Ox O2 Delivery O2 Flow Rate FiO2 02/05/21 14:00 97.8 71 18 120/60 (80) 100 Room Air I&O- Last 24 Hours up to 6 AM 02/05/21 06:00 Intake Total 3600 ml Output Total 1050 ml Balance 2550 ml GME ATTESTATION GME ATTESTATION My faculty preceptor for this patient encounter was physically present during the encounter and was fully available. All aspects of the patient interview, examination, medical decision making process, and medical care plan development were reviewed and approved by the faculty preceptor. The faculty preceptor is aware and concurs with the plan as stated in the body of this note and will attest to such by his/her cosignature. ATTENDING NOTE I, Marilin Tello, have independently examined this patient and performed my own physical exam, as well as reviewed the documentation and edited where necessary. I have discussed in detail with the resident / student the findings and plan of treatment as documented by the resident / student and edited their note. I agree with their findings and treatment plan and have edited their documentation. I will continue to follow the patient during this hospital stay. Domingo Anders MD Feb 05, 2021 15:39 MARILIN TELLO MD Feb 05, 2021 17:50
[2021-02-05] MEDS: LEVEMIR (INSULIN DETEMIR) 1 UNITS/0.01ML SC SCH (17:10)
[2021-02-05 18:00] VITALS: BP 126/66
[2021-02-05 18:19] LABS: HEMATOCRIT 33.8 % (36.0-47.0); HEMOGLOBIN 10.3 g/dl (12.0-15.5)
[2021-02-05 22:00] VITALS: BP 125/61
[2021-02-06 00:31] LABS: HEMATOCRIT 32.9 % (36.0-47.0); HEMOGLOBIN 10.1 g/dl (12.0-15.5)
[2021-02-06] MEDS: ACETAMINOPHEN TAB 650MG DOSE (2X325MG) PO PRN ×2 (01:44→08:23)
[2021-02-06 02:00] VITALS: BP 114/58
[2021-02-06 06:00] VITALS: BP 110/56
[2021-02-06] MEDS: LEVOTHYROXINE 75MCG TABLET (0.075MG) PO SCH (06:11)
[2021-02-06] MEDS: METOPROLOL SUCC (TopROL XL) 50MG **XL** TAB PO SCH ×2 (06:12→13:50)
[2021-02-06 06:29] LABS: BASO # 0.1 10^3/uL (0.0-0.2); EOS # 0.2 10^3/uL (0.0-0.5); EOS % 3.9 % (0.0-3.0); HEMATOCRIT 31.6 % (36.0-47.0); HEMOGLOBIN 9.8 g/dl (12.0-15.5); LYMPH # 0.8 10^3/uL (1.5-5.0); LYMPH % 14.5 % (24.0-44.0); MEAN CORPUSCULAR HEMOGLOBIN 30.5 pg (27.0-33.0); MEAN CORPUSCULAR VOLUME 98.4 fl (80.0-96.0); MONO # 0.6 10^3/uL (0.0-0.8); MONO % 12.4 % (2.0-8.0); NEUTROPHILS # 3.5 10^3/uL (1.5-8.5); PLATELET COUNT, AUTOMATED 220 10^3/uL (150-450); RED BLOOD COUNT 3.21 10^6/uL (4.00-5.40); WHITE BLOOD COUNT 5.2 10^3/uL (4.0-10.0)
[2021-02-06 06:41] LABS: INR 1.09; PROTHROMBIN TIME 14.3 SECONDS (12.5-14.3)
[2021-02-06 06:47] LABS: CREATININE FOR GFR 1.58 MG/DL (0.55-1.30); GLOMERULAR FILTRATION RATE 33.2 (>32); POTASSIUM SERUM 4.9 MEQ/L (3.5-5.1)
[2021-02-06 06:48] LABS: MAGNESIUM LEVEL 2.2 MG/DL (1.8-2.4)
[2021-02-06] MEDS: HumaLOG INSULIN (NovoLOG) PER UNIT SC SCH ×2 (07:30→12:14)
[2021-02-06] MEDS: LORATADINE 10 MG TAB PO SCH (08:22)
[2021-02-06] MEDS: SUCRALFATE SUSP 1GM/10ML UD PO SCH ×2 (08:22→12:13)
[2021-02-06] MEDS: PANTOPRAZOLE 40MG VIAL (C9113 PER 1) IV SCH (08:22)
[2021-02-06] MEDS: FERROUS SULFATE 325MG TAB PO SCH (08:22)
[2021-02-06] MEDS ORDERED: FURO40TA2 PO (08:51)
--- NOTE | 2021-02-06 09:04 | DS.PDOC ---
Discharge Summary General Date of Admission Feb 04, 2021 at 19:07 Date of Discharge 02/06/2021 Discharge Summary PROCEDURES PERFORMED DURING STAY: None. ADMITTING DIAGNOSES / DISCHARGE DIAGNOSES: Mechanical fall Anemia Hematuria Dark stools Atrial fibrillation IDDM2 HTN Hypothyroidism Gout DVT prophylaxis COMPLICATIONS/CHIEF COMPLAINT: Fall HISTORY OF PRESENT ILLNESS: Patient is atrial female with a PMHx of A. fib (on ASA 325), HTN, DLP, Chronic dark stools, Iron deficiency (on Ferrous sulfate), Hx of GI bleed / Peptic ulcer disease, Neuropathy, RLS, RA, Gout, was brought in by EMS after she had fallen at home after mechanical fall while she was working in the garden. Upon arrival, patient had imaging that was negative for any fractures. Patient was subsequently found to have acute kidney injury and questionable anemia. Patient was admitted to the hospital service for further evaluation, treatment. Patient was seen and examined at the bedside. Currently, she has worked with physical therapy and has been cleared for discharge home. She denies any lightheadedness, dizziness, chest pain, shortness breath or palpitations. Denies any abdominal pain. Reports that she is constipated and her urine has become clearer. HOSPITAL COURSE: Mechanical fall - Patient has reported improvement of her pain - Imaging noted below - Patient has worked with physical therapy and has been cleared for discharge home with services - Will continue physical therapy and occupational therapy on discharge Anemia - Possibly 2/2 chronic bleed - s/p 2 units PRBC - Hemoglobin has remained stable - See below Hematuria - Patient has been having ongoing hematuria for several months - During this hospitalization her UA did reveal evidence of blood; has had improvement throughout hospitalization - Imaging noted below - Urology was consulted; they have recommended outpatient cystoscopy given that her hemoglobin has remained stable in urine has had improvement Dark stools - Patient has been having an ongoing history of dark stools since September and she follows closely with Dr. Lopez - Patient is currently constipated and has not had a bowel movement will induce a bowel movement with lactulose prior to discharge - c/w Ferrous sulfate - c/w Protonix / Carafate - Case was discussed with Dr. Lopez; will have outpatient follow-up for EGD and colonoscopy as needed, will continue with current medication regimen Atrial fibrillation - c/w rate control with metoprolol - Will resume ASA 325 on discharge IDDM2 - c/w ISS and Levemir HTN - BP well controlled - c/w Metoprolol Hypothyroidism - c/w Levothyroxine Gout - Will resume allopurinol on discharge DVT prophylaxis - c/w TEDS / Sequentials DISCHARGE MEDICATIONS: Please see below. ALLERGIES: Please see below. PHYSICAL EXAMINATION ON DISCHARGE: Vitals (See below) General: Patient is sitting up in chair, appears to be comfortable without any acute distress, is oriented to person, place and time HEENT: NC, AT CVS: +S1S2 Lungs: Fair air entry b/l, no evidence of wheezing with rhonchi Abdomen: Soft, ND, NT Extremities: - Edema, - Calf tenderness LABORATORY DATA: Please see below. IMAGING: XR Hip / Pelvis 02/03: Chronic changes. No evidence for acute fracture or dislocation. Renal US 02/04: 1. Bilateral renal cysts all of which appear relatively simple. No hydr onephrosis or nephrolithiasis. Findings are relatively stable as compared with prior ultrasound. However, the recent CT demonstrates an 1 cm round isoechoic lesion in the upper pole of the right kidney which is not definitively identified by ultrasound and small mass cannot be excluded. Pre and postcontrast CT of the abdomen should be considered for further investigation. 2. Incidental small amount of perihepatic ascites in the right upper quadrant. ACTIVITY: As tolerated. DISCHARGE PLAN: Follow-up with primary care provider within the next 7 days Follow-up with Dr. Lopez of general surgery and Dr. Mejia of urology within the next 7 days Remain compliant with treatment plan and medications Return to the ER if you experience any problems DISPOSITION: Home DISCHARGE CONDITION: Stable. TIME SPENT ON DISCHARGE: 35 minutes. Vital Signs/I&Os Vital Signs Date Time Temp Pulse Resp B/P (MAP) Pulse Ox O2 Delivery O2 Flow Rate FiO2 02/06/21 06:12 70 110/56 02/06/21 06:00 97.1 19 100 Room Air I&O- Last 24 Hours up to 6 AM 02/06/21 05:59 Intake Total 1380 ml Output Total 750 ml Balance 630 ml Laboratory Data Labs 24H Laboratory Tests 2 02/05/21 11:33: Bedside Glucose (Misc Panel) 128H 02/05/21 16:35: Bedside Glucose (Misc Panel) 158H 02/05/21 19:52: Bedside Glucose (Misc Panel) 181H 02/06/21 06:09: Immature Granulocyte % (Auto) 1.2, Neutrophils (%) (Auto) 67.0H, Lymphocytes (%) (Auto) 14.5L, Monocytes (%) (Auto) 12.4H, Eosinophils (%) (Auto) 3.9H, Basophils (%) (Auto) 1.0, Neutrophils # (Auto) 3.5, Lymphocytes # (Auto) 0.8L, Monocytes # (Auto) 0.6, Eosinophils # (Auto) 0.2, Basophils # (Auto) 0.1, Nucleated Red Blood Cells % (auto) 0.0, Prothrombin Time 14.3H, Prothromb Time International Ratio 1.09, Anion Gap 6L, Glomerular Filtration Rate 33.2, Calcium Level 8.0L, Magnesium Level 2.2 CBC/BMP Laboratory Tests 02/05/21 10:16 02/05/21 18:07 02/06/21 00:00 02/06/21 06:09 FSBS Laboratory Tests Test 02/05/21 11:33 02/05/21 16:35 02/05/21 19:52 Range/Units Bedside Glucose (Misc Panel) 128 158 181 83-110 MG/DL Microbiology Microbiology 02/04/21 Stool Occult Blood (MARY) - Final, Complete 02/04/21 Urine Culture - Final, Complete Discharge Medications Scheduled Allopurinol (Zyloprim) 300 Mg Tab, 300 MG PO QHS, (Reported) Ammonium Lactate (Ammonium Lactate) 12% Lotion, 1 DOSE TOP QHS, (Reported) APPLY TO FEET Aspirin (Aspirin) 325 Mg Tablet, 325 MG PO DAILY, (Reported) Calcium Carbonate/Vitamin D3 (Calcium 600 + Vit D 400 Softgl) 1 Each Capsule, 1 CAP PO BID, (Reported) Cholecalciferol (Vitamin D3) (Vitamin D3) 1,000 Unit Tablet, 2,000 UNITS PO DAILY, (Reported) Ferrous Sulfate (Ferrous Sulfate) 325 Mg Tab, 325 MG PO BID, (Reported) Furosemide (Furosemide) 40 Mg Tablet, 40 MG PO DAILY, (Reported) Glimepiride (Glimepiride) 2 Mg Tablet, 2 MG PO DAILY, (Reported) Insulin Glargine,Hum.rec.anlog (Lantus Solostar) 100 Unit/1 Ml Insuln.pen, 15 UNIT SC QPM, (Reported) Levothyroxine Sodium (Synthroid) 75 Mcg Tab, 75 MCG PO DAILY, (Reported) Loratadine (Loratadine) 10 Mg Tablet, 10 MG PO DAILY, (Reported) Magnesium Oxide (Magnesium Oxide) 250 Mg Tablet, 250 MG PO DAILY, (Reported) Metoprolol Succinate (Toprol Xl) 50 Mg Tab, 50 MG PO TID, (Reported) Omeprazole (Omeprazole) 20 Mg Capsule.dr, 40 MG PO DAILY, (Reported) Spironolactone (Spironolactone) 25 Mg Tablet, 25 MG PO BID, (Reported) TAKES MORNING AND DINNERTIME Sucralfate (Sucralfate) 1 Gm Tablet, 1 GM PO ACHS, (Reported) Scheduled PRN Fluticasone Propionate (Flonase Allergy Relief) 50 Mcg/Act Spr, 1 SPRAY NARES DAILY PRN for NASAL CONGESTION, (Reported) Allergies Coded Allergies: latex (Verified Allergy, Severe, Anaphylaxis, 02/03/21) [place] (Verified Allergy, Unknown, 02/03/21) codeine (Verified Adverse Reaction, Intermediate, Dizziness, Blurred Vision, Headache, Dry Mouth, 02/03/21) NAVEEN CHAMBERLAIN MD Feb 06, 2021 09:04
[2021-02-06 10:00] VITALS: BP 121/61
[2021-02-06] MEDS ORDERED: LACTULOSE 20 GM/30 ML SYRUP UD PO SCH (12:00)
[2021-02-06] MEDS ORDERED: BISACODYL 10 MG SUPP PR ONE (12:45)
[2021-02-06 13:50] VITALS: BP 124/62
[2021-02-06 14:00] VITALS: BP 124/62
== END 2021-02-06 16:05 | disposition home health service (06) | DRG 684 ==
LOC: M ED 15:52 → M ED INP 15:53 → ENRESERV 19:57 → M MSPAV 22:46 → OBSVTOIN 02-04 19:07
PROVIDERS: ADMIT General Practice; ATTEND Internal Medicine
PROC: 30233N1 Transfusion of Nonautologous Red Blood Cells into Peripheral Vein, Percutaneous Approach (ICD-10-PCS; principal; 2021-02-05)
DX: N17.9 Acute kidney failure, unspecified (principal); I12.9 Hypertensive chronic kidney disease with stage 1 through stage 4 chronic kidney disease, or unspecified chronic kidney disease; S70.02XA Contusion of left hip, initial encounter; N18.30 Chronic kidney disease, stage 3 unspecified; W01.0XXA Fall on same level from slipping, tripping and stumbling without subsequent striking against object, initial encounter; Y92.009 Unspecified place in unspecified non-institutional (private) residence as the place of occurrence of the external cause; I48.91 Unspecified atrial fibrillation; Z79.82 Long term (current) use of aspirin; K64.9 Unspecified hemorrhoids; Z79.4 Long term (current) use of insulin; D50.9 Iron deficiency anemia, unspecified; D63.1 Anemia in chronic kidney disease; M06.9 Rheumatoid arthritis, unspecified; E03.9 Hypothyroidism, unspecified; E78.5 Hyperlipidemia, unspecified; K27.9 Peptic ulcer, site unspecified, unspecified as acute or chronic, without hemorrhage or perforation; E11.43 Type 2 diabetes mellitus with diabetic autonomic (poly)neuropathy; Z95.0 Presence of cardiac pacemaker; Z96.653 Presence of artificial knee joint, bilateral; Z90.49 Acquired absence of other specified parts of digestive tract; Z90.79 Acquired absence of other genital organ(s); Z87.891 Personal history of nicotine dependence; Z20.822 Contact with and (suspected) exposure to COVID-19; Z79.899 Other long term (current) drug therapy; Z88.5 Allergy status to narcotic agent; Z91.040 Latex allergy status; R31.9 Hematuria, unspecified; M10.9 Gout, unspecified; E11.22 Type 2 diabetes mellitus with diabetic chronic kidney disease; G25.81 Restless legs syndrome

== ENCOUNTER → 2021-02-17 | Outpatient (REF) | payer MEDICARE, OTHER ==
[~2021-02-17] MED LIST changes: +AMMO12LO TOP; +BAYE325T16 PO
== END ==
LOC: M LAB REF 14:12
PROVIDERS: ATTEND Physician Assistant
DX: D04.61 Carcinoma in situ of skin of right upper limb, including shoulder (principal)
CPT/HCPCS: 11102; 17000; 17003; 88305; G0463

== ENCOUNTER → 2021-03-17 | Outpatient (REF) | payer MEDICARE, OTHER | LOC: M LAB REF 17:20 | PROVIDERS: ATTEND Internal Medicine Nephrology | DX: E83.42 Hypomagnesemia (principal) ==

== ENCOUNTER → 2021-03-18 | Outpatient (REF) | payer MEDICARE, OTHER ==
[~2021-03-18] MED LIST changes: +ALLO10TA PO; -KLOR20TA42 PO; +POTA-141 PO
== END ==
LOC: M SMT 18:14
PROVIDERS: ATTEND Urology
DX: R31.0 Gross hematuria (principal)

== ENCOUNTER → 2021-04-28 | Outpatient (REF) | payer MEDICARE, OTHER ==
[2021-04-28 13:52] LABS: HEMATOCRIT 30.9 % (36.0-47.0); HEMOGLOBIN 9.3 g/dl (12.0-15.5); MEAN CORPUSCULAR HEMOGLOBIN 30.8 pg (27.0-33.0); MEAN CORPUSCULAR HGB CONC 30.1 g/dl (32.0-36.5); MEAN CORPUSCULAR VOLUME 102.3 fl (80.0-96.0); PLATELET COUNT, AUTOMATED 289 10^3/uL (150-450); RED BLOOD COUNT 3.02 10^6/uL (4.00-5.40); WHITE BLOOD COUNT 6.1 10^3/uL (4.0-10.0)
[2021-04-28 14:16] LABS: CALCIUM LEVEL 9.1 MG/DL (8.8-10.2); CREATININE FOR GFR 2.06 MG/DL (0.55-1.30); GLOMERULAR FILTRATION RATE 24.5 (>32); POTASSIUM SERUM 5.4 MEQ/L (3.5-5.1)
== END ==
LOC: M LABDRWAD 13:10
PROVIDERS: ATTEND Physician Assistant
DX: I48.20 Chronic atrial fibrillation, unspecified (principal)

== ENCOUNTER → 2021-04-29 | Outpatient (CLI) | payer MEDICARE, OTHER | LOC: M LABSMTC 09:14 | PROVIDERS: ATTEND Anesthesiology | DX: Z20.828 Contact with and (suspected) exposure to other viral communicable diseases (principal); Z11.59 Encounter for screening for other viral diseases ==

== ENCOUNTER 2021-05-04 06:50 | Day surgery (SDC) | payer MEDICARE, OTHER ==
[~2021-05-04] VITALS: Ht 149.9 cm; Wt 63.0 kg
[~2021-05-04 06:50] MED LIST changes: +NS 1,000 ML IV ONE
[2021-05-04] MEDS ORDERED: LIDOCAINE 2% 100MG/5ML SDV (FOR ANES.) As Ordered ONE (07:05)
[2021-05-04] MEDS ORDERED: propofoL 200 MG/20 ML VIAL As Ordered ONE ×2 (07:06→07:09)
[2021-05-04] MEDS ORDERED: PHENYLephrine 500MCG 5ML (100MCG/ML) SYRINGE As Ordered ONE (07:40)
--- NOTE | 2021-05-04 07:53 | ROOR ---
Patient Name: Juana Doty Procedure Date: 05/04/2021 7:29 AM Date of : 1935 Age: 85 Room: [facility] Gender: Female Note Status: Finalized Procedure: Colonoscopy Indications: Hematochezia Providers: DO Shira Alfaro MD: BONIFACIO WEST MD Requesting Provider: Medicines: Propofol per Anesthesia Complications: No immediate complications. Procedure: Pre-Anesthesia Assessment: - Prior to the procedure, a History and Physical was performed, and patient medications and allergies were reviewed. The patient is competent. The risks and benefits of the procedure and the sedation options and risks were discussed with the patient. All questions were answered and informed consent was obtained. Patient identification and proposed procedure were verified by the physician, the nurse, the manager supply and the emissions testing and repair technician in the endoscopy suite. Mental Status Examination: alert and oriented. Airway Examination: normal oropharyngeal airway and neck mobility. Respiratory Examination: clear to auscultation. CV Examination: normal. Prophylactic Antibiotics: The patient does not require prophylactic antibiotics. Prior Anticoagulants: The patient has taken no previous anticoagulant or antiplatelet agents except for aspirin. ASA Grade Assessment: III - A patient with severe systemic disease. After reviewing the risks and benefits, the patient was deemed in satisfactory condition to undergo the procedure. The anesthesia plan was to use monitored anesthesia care (MAC). Immediately prior to administration of medications, the patient was re-assessed for adequacy to receive sedatives. The heart rate, respiratory rate, oxygen saturations, blood pressure, adequacy of pulmonary ventilation, and response to care were monitored throughout the procedure. The physical status of the patient was re-assessed after the procedure. The Colonoscope was introduced through the anus and advanced to the sigmoid colon for evaluation. This was the intended extent. The colonoscopy was performed without difficulty. The patient tolerated the procedure well. Findings: Hemorrhoids were found on perianal exam. Non-bleeding internal hemorrhoids were found during perianal exam. The hemorrhoids were severe and Grade III (internal hemorrhoids that prolapse but require manual reduction). Two bands were successfully placed. There was no bleeding during the procedure. Estimated blood loss was minimal. A few small-mouthed diverticula were found in the sigmoid colon. A single small localized angioectasia with bleeding on contact was found in the rectum. Coagulation for hemostasis using monopolar probe was successful. Impression: - Hemorrhoids found on perianal exam. - Non-bleeding internal hemorrhoids. Banded. - Diverticulosis in the sigmoid colon. - A single colonic angioectasia. Treated with a monopolar probe. - No specimens collected. Recommendation: - Patient has a contact number available for emergencies. The signs and symptoms of potential delayed complications were discussed with the patient. Return to normal activities tomorrow. Written discharge instructions were provided to the patient. - Return to my office PRN. Procedure Code(s): --- Professional --- 75399, 59,52, Colonoscopy, flexible; with control of bleeding, any method 74272, 52, Colonoscopy, flexible; with band ligation(s) (eg, hemorrhoids) Diagnosis Code(s): --- Professional --- K64.2, Third degree hemorrhoids K55.20, Angiodysplasia of colon without hemorrhage K92.1, Melena (includes Hematochezia) K57.30, Diverticulosis of large intestine without perforation or abscess without bleeding CPT copyright 2019 [employer]. All rights reserved. The codes documented in this report are preliminary and upon barrel painter review may be revised to meet current compliance requirements. John Lopez DO 05/04/2021 7:52:55 AM Electronically signed by John Lopez DO Number of Addenda: 0 Note Initiated On: 05/04/2021 7:29 AM Estimated Blood Loss: Estimated blood loss was minimal.
[2021-05-04 08:20] VITALS: BP 148/75
== END 2021-05-04 08:32 | disposition home or self-care (01) ==
LOC: M OPP 06:50
PROVIDERS: ATTEND Surgery
DX: K55.20 Angiodysplasia of colon without hemorrhage (principal); K92.1 Melena; K64.2 Third degree hemorrhoids; K57.30 Diverticulosis of large intestine without perforation or abscess without bleeding; Z79.82 Long term (current) use of aspirin; Z79.899 Other long term (current) drug therapy; Z88.8 Allergy status to other drugs, medicaments and biological substances; Z91.040 Latex allergy status
CPT/HCPCS: 45388; 45398; J2370

== ENCOUNTER → 2021-05-10 | Outpatient (CLI) | payer MEDICARE, OTHER ==
[~2021-05-10] MED LIST changes: -NS 1,000 ML IV ONE
--- NOTE | 2021-05-10 11:50 | REP ---
INDICATION: NEW BACK PAIN, ANEMIA, CKD COMPARISON: Multiple the latest 10/29/[address] angio chest TECHNIQUE: Standard helical technique without intravenous contrast. This causes exam limitations. FINDINGS: The mediastinum and pulmonary sara have not changed significantly. No definite mass or adenopathy seems to have developed on this noncontrast enhanced exam. There are no pleural or pericardial effusions. There is cardiomegaly status quo. The imaged upper abdomen shows ascites which may have increased slightly from the prior exam. Bone window technique throughout the exam shows no significant change in appearance of the osseous structures. Evaluation of the lung maria shows no new abnormal nodules, masses, or opacities. IMPRESSION: No significant change compared to the prior exam other than technique with findings as described above. <Electronically signed by Chu England > 05/10/21 [id number]
--- NOTE | 2021-05-10 12:11 | REP ---
INDICATION: NEW BACK PAIN, ANEMIA, CKD. COMPARISON: Multiple the latest 12/18/2020 also without contrast TECHNIQUE: Standard helical technique without contrast. No oral bowel preparatory contrast was administered either. This causes exam limitations. FINDINGS: There is ascites which is increased slightly from the prior exam. The liver, spleen, pancreas, adrenal glands, and kidneys are unchanged. Numerous renal cysts status quo, some of which are hyper dense status quo. The abdominal aorta and para-aortic regions are unchanged. There is no significant change in appearance of the bowel loops. There is descending colon and sigmoid colon diverticulosis status quo. Multiple central mesenteric lymph nodes versus splenorenal varices status quo and difficult to evaluate without intravenous contrast administration. There is no significant change in appearance of the osseous structures. IMPRESSION: No significant change compared to the prior exam with findings as described above. The amount of ascites may have increased slightly. <Electronically signed by Chu England > 05/10/21 [id number]
== END ==
LOC: M RAD 10:57
PROVIDERS: ATTEND Internal Medicine Medical Oncology
DX: R18.8 Other ascites (principal); N18.9 Chronic kidney disease, unspecified; M54.89 Other dorsalgia; D64.9 Anemia, unspecified

== ENCOUNTER 2021-05-26 10:29 | Emergency (ER) | payer MEDICARE, OTHER ==
[~2021-05-26] VITALS: Ht 149.9 cm; Wt 86.4 kg
--- NOTE | 2021-05-26 12:22 | REP ---
INDICATION: Fall COMPARISON: None. TECHNIQUE: Four views left ankle. FINDINGS: There is no evidence of acute fracture, dislocation, or intrinsic bone disease.The tibiotalar joint is unremarkable, the ankle mortise is anatomic. Mild vascular calcifications are seen in the soft tissues. There is a tiny inferior calcaneal spur. IMPRESSION: No fracture or dislocation. <Electronically signed by John Choi > 05/26/21 [id number]
--- NOTE | 2021-05-26 12:23 | REP ---
INDICATION: Fall. COMPARISON: 02/03/2021. TECHNIQUE: AP pelvis, AP and frogleg left hip. FINDINGS: There is no evidence of acute fracture or dislocation. Metallic chance are seen overlying the left pelvis. Intramedullary raúl is seen in the left femoral shaft. IMPRESSION: No acute fracture or dislocation. <Electronically signed by John Choi > 05/26/21 [id number]
--- NOTE | 2021-05-26 12:27 | REP ---
INDICATION: Fall COMPARISON: 04/07/2019. TECHNIQUE: Four views left knee. FINDINGS: There is no evidence of acute fracture, dislocation, or intrinsic bone disease.Metallic fixation and knee prosthetic components are again noted. There are scattered vascular calcifications. IMPRESSION: No fracture or dislocation. <Electronically signed by John Choi > 05/26/21 [id number]
[2021-05-26 14:00] VITALS: BP 129/60
== END 2021-05-26 15:06 | disposition home or self-care (01) ==
LOC: M ED 10:29 → EDBD 10:29 → M ED 15:06
DX: S70.02XA Contusion of left hip, initial encounter (principal); W01.0XXA Fall on same level from slipping, tripping and stumbling without subsequent striking against object, initial encounter; Y92.018 Other place in single-family (private) house as the place of occurrence of the external cause; I10 Essential (primary) hypertension; E11.9 Type 2 diabetes mellitus without complications; I48.91 Unspecified atrial fibrillation; Z95.5 Presence of coronary angioplasty implant and graft; Z79.899 Other long term (current) drug therapy; Z79.4 Long term (current) use of insulin; Z88.5 Allergy status to narcotic agent; Z91.040 Latex allergy status; J30.89 Other allergic rhinitis

== ENCOUNTER → 2021-06-21 | Outpatient (CLI) | payer MEDICARE, OTHER ==
--- NOTE | 2021-07-03 22:10 | DEXAMM ---
INDICATION: POST MENOPAUSAL. COMPARISON: None. TECHNIQUE: Bone density was measured using dual-energy x-ray absorptionmetry (DEXA). FINDINGS: AP SPINE L1-L4 BMD 1.35 g/cm2 Young Adult T-Score 1.3 Age Matched Z-Score 3.2. LT FEMUR, TOTAL BMD 0.77 g/cm2 Young Adult T-Score -1.9 Age Matched Z-Score 0.3. LT NECK BMD 0.72 g/cm2 Young Adult T-Score -2.3 Age Matched Z-Score 0.0. RT FEMUR, TOTAL BMD 0.78 g/cm2 Young Adult T-Score -1.8 Age Matched Z-Score 0.4. RT NECK BMD 0.74 g/cm2 Young Adult T-Score -2.2 Age Matched Z-Score 0.1. IMPRESSION: There is normal bone density of the spine. There is low bone density of the left hip. There is low bone density of the right hip. FOLLOW-UP: Recommendation for the next bone density exam: 2 years. <Electronically signed by Mikal Field > 07/03/21 [id number]
== END ==
LOC: M WHC 11:41
PROVIDERS: ATTEND Internal Medicine Hematology & Oncology
DX: N95.1 Menopausal and female climacteric states (principal); M85.89 Other specified disorders of bone density and structure, multiple sites

== ENCOUNTER → 2021-06-23 | Outpatient (REF) | payer MEDICARE, OTHER ==
[2021-06-23 13:50] LABS: PERCENT SATURATION 20.8 % (13.2-45.0)
== END ==
LOC: M LAB REF 12:50
PROVIDERS: ATTEND Internal Medicine Nephrology
DX: D50.9 Iron deficiency anemia, unspecified (principal)

== ENCOUNTER → 2021-07-06 | Outpatient (REF) | payer MEDICARE, OTHER | LOC: M LAB REF 14:56 | PROVIDERS: ATTEND Internal Medicine Hematology & Oncology | DX: K27.9 Peptic ulcer, site unspecified, unspecified as acute or chronic, without hemorrhage or perforation (principal); D63.1 Anemia in chronic kidney disease; Z79.899 Other long term (current) drug therapy; Z87.19 Personal history of other diseases of the digestive system; D50.9 Iron deficiency anemia, unspecified ==

== ENCOUNTER 2021-07-25 12:23 | Inpatient (IN) | payer MEDICARE, OTHER ==
[~2021-07-25] VITALS: Ht 149.9 cm; Wt 92.7 kg
[~2021-07-25 12:23] MED LIST changes: -ALLO300T2 PO; -ASPI-255 PO; -CEFD300CAP PO; -DOXY100T PO; -GABA-1171 PO; -METO1TAB32 PO; -TORS100T PO; -TORS20TA2 PO; -VANC250C3 PO
[2021-07-25 13:52] LABS: BASO % 0.7 % (0.0-1.0); EOS # 0.1 10^3/uL (0.0-0.5); EOS % 1.1 % (0.0-3.0); HEMATOCRIT 30.5 % (36.0-47.0); HEMOGLOBIN 9.3 g/dl (12.0-15.5); LYMPH # 0.6 10^3/uL (1.5-5.0); LYMPH % 10.2 % (24.0-44.0); MEAN CORPUSCULAR HEMOGLOBIN 28.7 pg (27.0-33.0); MEAN CORPUSCULAR HGB CONC 30.5 g/dl (32.0-36.5); MEAN CORPUSCULAR VOLUME 94.1 fl (80.0-96.0); MONO # 0.5 10^3/uL (0.0-0.8); MONO % 8.6 % (2.0-8.0); NEUTROPHILS # 4.5 10^3/uL (1.5-8.5); NEUTROPHILS % 78.7 % (36.0-66.0); PLATELET COUNT, AUTOMATED 262 10^3/uL (150-450); RED BLOOD COUNT 3.24 10^6/uL (4.00-5.40); WHITE BLOOD COUNT 5.7 10^3/uL (4.0-10.0)
[2021-07-25 14:31] LABS: ALBUMIN 2.9 GM/DL (3.2-5.2); BILIRUBIN,DIRECT 0.3 MG/DL (0.0-0.2); BILIRUBIN,TOTAL 0.6 MG/DL (0.2-1.0); CALCIUM LEVEL 8.8 MG/DL (8.8-10.2); CREATININE FOR GFR 2.44 MG/DL (0.55-1.30); GLOMERULAR FILTRATION RATE 20.1 (>32); POTASSIUM SERUM 5.1 MEQ/L (3.5-5.1); THYROID STIMULATING HORMONE 4.53 uIU/ML (0.358-3.740); TOTAL PROTEIN 6.5 GM/DL (6.4-8.2)
[2021-07-25 14:56] LABS: RSV AMPLIFICATION NEGATIVE (NEGATIVE)
[2021-07-25] MEDS ORDERED: FUROSEMIDE 40MG/4ML VIAL (J1940) IV ONE (15:15)
[2021-07-25] MEDS ORDERED: ALLO300T2 PO (15:17)
[2021-07-25] MEDS ORDERED: GABA-1171 PO (15:17)
[2021-07-25] MEDS ORDERED: METO1TAB32 PO (15:44)
[2021-07-25] MEDS ORDERED: FURO40TA2 PO (15:44)
[2021-07-25] MEDS ORDERED: HOME MED LIST COMPLETE! XX SCH (15:50)
[2021-07-25] MEDS: FUROSEMIDE 40MG/4ML VIAL (J1940) IV SCH ×2 (16:18→23:51)
[2021-07-25] MEDS ORDERED: FLUTICASONE PROP 0.05% NASAL SPRAY 16 GM (FLONASE) NARES PRN (17:30)
[2021-07-25] MEDS: SUCRALFATE 1 GM TAB PO SCH ×2 (19:20→23:49)
[2021-07-25] MEDS ORDERED: LACTIC ACID 12% LOTION 225 GM BTL TOP SCH (21:00)
[2021-07-25 22:51] VITALS: BP 137/74
[2021-07-25] MEDS: GABAPENTIN 100 MG CAP PO SCH (23:49)
[2021-07-25] MEDS: SPIRONOLACTONE 25 MG TAB PO SCH (23:49)
[2021-07-25] MEDS: FERROUS SULFATE 325MG TAB PO SCH (23:50)
[2021-07-25] MEDS: METOPROLOL SUCC (TopROL XL) 50MG **XL** TAB PO SCH (23:50)
[2021-07-25] MEDS: LEVEMIR (INSULIN DETEMIR) 1 UNITS/0.01ML SC SCH (23:51)
[2021-07-26] MEDS ORDERED: GLUCOSE 4GM CHEW TABLET PO PRN (05:00)
[2021-07-26] MEDS ORDERED: GLUCAGON INJ 1MG VIAL SC PRN (05:00)
[2021-07-26] MEDS ORDERED: DEXTROSE 50% 50 ML SYRINGE IV PRN (05:00)
[2021-07-26] MEDS: LEVOTHYROXINE 75MCG TABLET (0.075MG) PO SCH (05:10)
[2021-07-26] MEDS: FUROSEMIDE 40MG/4ML VIAL (J1940) IV SCH ×4 (05:11→20:22)
[2021-07-26 05:43] LABS: HEMATOCRIT 27.9 % (36.0-47.0); HEMOGLOBIN 8.4 g/dl (12.0-15.5); MEAN CORPUSCULAR HEMOGLOBIN 28.1 pg (27.0-33.0); MEAN CORPUSCULAR HGB CONC 30.1 g/dl (32.0-36.5); MEAN CORPUSCULAR VOLUME 93.3 fl (80.0-96.0); PLATELET COUNT, AUTOMATED 234 10^3/uL (150-450); RED BLOOD COUNT 2.99 10^6/uL (4.00-5.40); WHITE BLOOD COUNT 5.4 10^3/uL (4.0-10.0)
[2021-07-26 06:00] VITALS: BP 114/65
[2021-07-26 06:09] LABS: ALBUMIN 2.6 GM/DL (3.2-5.2); BILIRUBIN,TOTAL 0.5 MG/DL (0.2-1.0); CALCIUM LEVEL 8.1 MG/DL (8.8-10.2); CREATININE FOR GFR 2.4 MG/DL (0.55-1.30); GLOMERULAR FILTRATION RATE 20.5 (>32); POTASSIUM SERUM 4.8 MEQ/L (3.5-5.1); TOTAL PROTEIN 5.9 GM/DL (6.4-8.2)
[2021-07-26] MEDS: HumaLOG INSULIN (NovoLOG) PER UNIT SC SCH ×4 (07:30→20:23)
[2021-07-26] MEDS: OMEPRAZOLE 20MG CAP PO SCH (08:34)
[2021-07-26] MEDS: LORATADINE 10 MG TAB PO SCH (08:34)
[2021-07-26] MEDS: allopurinoL 300 MG TAB PO SCH (08:34)
[2021-07-26] MEDS: FERROUS SULFATE 325MG TAB PO SCH ×2 (08:34→20:21)
[2021-07-26] MEDS: SUCRALFATE 1 GM TAB PO SCH ×4 (08:34→20:21)
[2021-07-26] MEDS: SPIRONOLACTONE 25 MG TAB PO SCH ×2 (08:34→20:22)
[2021-07-26] MEDS: GABAPENTIN 100 MG CAP PO SCH ×3 (08:35→20:21)
[2021-07-26] MEDS: VITAMIN D 1,000 INTERNATIONAL UNITS TABLET PO SCH (08:35)
[2021-07-26] MEDS: METOPROLOL SUCC (TopROL XL) 50MG **XL** TAB PO SCH ×3 (08:36→20:24)
[2021-07-26 12:56] LABS: PERCENT SATURATION 10.1 % (13.2-45.0)
[2021-07-26 14:00] VITALS: BP 118/63
[2021-07-26] MEDS: LEVEMIR (INSULIN DETEMIR) 1 UNITS/0.01ML SC SCH (20:23)
[2021-07-27 05:50] LABS: HEMATOCRIT 27.7 % (36.0-47.0); HEMOGLOBIN 8.4 g/dl (12.0-15.5); MEAN CORPUSCULAR HEMOGLOBIN 28.2 pg (27.0-33.0); MEAN CORPUSCULAR HGB CONC 30.3 g/dl (32.0-36.5); PLATELET COUNT, AUTOMATED 224 10^3/uL (150-450); RED BLOOD COUNT 2.98 10^6/uL (4.00-5.40); WHITE BLOOD COUNT 5.2 10^3/uL (4.0-10.0)
[2021-07-27 06:32] LABS: ALBUMIN 2.6 GM/DL (3.2-5.2); BILIRUBIN,TOTAL 0.5 MG/DL (0.2-1.0); CALCIUM LEVEL 8.2 MG/DL (8.8-10.2); CREATININE FOR GFR 2.29 MG/DL (0.55-1.30); GLOMERULAR FILTRATION RATE 21.7 (>32); POTASSIUM SERUM 4.8 MEQ/L (3.5-5.1); TOTAL PROTEIN 5.9 GM/DL (6.4-8.2)
[2021-07-27] MEDS: FUROSEMIDE 40MG/4ML VIAL (J1940) IV SCH ×5 (06:38→22:00)
[2021-07-27] MEDS: LEVOTHYROXINE 75MCG TABLET (0.075MG) PO SCH (06:38)
[2021-07-27] MEDS: HumaLOG INSULIN (NovoLOG) PER UNIT SC SCH ×4 (07:30→21:00)
[2021-07-27] MEDS: FERROUS SULFATE 325MG TAB PO SCH ×2 (09:03→22:16)
[2021-07-27] MEDS: GABAPENTIN 100 MG CAP PO SCH ×3 (09:03→22:16)
[2021-07-27] MEDS: SPIRONOLACTONE 25 MG TAB PO SCH ×2 (09:03→22:16)
[2021-07-27] MEDS: VITAMIN D 1,000 INTERNATIONAL UNITS TABLET PO SCH (09:03)
[2021-07-27] MEDS: allopurinoL 300 MG TAB PO SCH (09:03)
[2021-07-27] MEDS: LORATADINE 10 MG TAB PO SCH (09:03)
[2021-07-27] MEDS: OMEPRAZOLE 20MG CAP PO SCH (09:03)
[2021-07-27] MEDS: SUCRALFATE 1 GM TAB PO SCH ×4 (09:03→22:16)
[2021-07-27] MEDS: METOPROLOL SUCC (TopROL XL) 50MG **XL** TAB PO SCH ×3 (09:06→22:11)
[2021-07-27 15:14] LABS: APPEARANCE, BODY FLUID HAZY (CLEAR); ASCITES FL COLOR PALE YELLOW (COLORLESS); SOURCE, BODY FLUID ASCITES
[2021-07-27 15:26] LABS: SPEC. GRAVITY BODY FLUIDS 1.028 (NOT ESTABLISHED)
[2021-07-27 15:47] LABS: SOURCE, BODY FLUID ALBUMIN ASCITES; SOURCE, BODY FLUID GLUCOSE ASCITES; SOURCE, BODY FLUID TOT PROTEIN ASCITES; TOTAL PROTEIN, BODY FLUID 4.5 G/DL (NOT ESTABLISHED)
[2021-07-27 21:00] VITALS: BP 105/52
[2021-07-27] MEDS: LEVEMIR (INSULIN DETEMIR) 1 UNITS/0.01ML SC SCH (22:17)
[2021-07-27] MEDS ORDERED: METOPROLOL SUCC *XL* 25MG TAB (TopROL *XL*) PO ONE (23:00)
[2021-07-28 03:56] VITALS: BP 106/49
[2021-07-28] MEDS: FUROSEMIDE 40MG/4ML VIAL (J1940) IV SCH (04:00)
[2021-07-28 06:00] VITALS: BP 114/57
[2021-07-28 06:07] VITALS: BP 92/46
[2021-07-28 06:19] LABS: HEMATOCRIT 27.5 % (36.0-47.0); HEMOGLOBIN 8.5 g/dl (12.0-15.5); MEAN CORPUSCULAR HEMOGLOBIN 28.6 pg (27.0-33.0); MEAN CORPUSCULAR HGB CONC 30.9 g/dl (32.0-36.5); MEAN CORPUSCULAR VOLUME 92.6 fl (80.0-96.0); PLATELET COUNT, AUTOMATED 232 10^3/uL (150-450); RED BLOOD COUNT 2.97 10^6/uL (4.00-5.40); WHITE BLOOD COUNT 5.2 10^3/uL (4.0-10.0)
[2021-07-28] MEDS: LEVOTHYROXINE 75MCG TABLET (0.075MG) PO SCH (06:28)
[2021-07-28 06:37] LABS: ALBUMIN 2.5 GM/DL (3.2-5.2); BILIRUBIN,TOTAL 0.6 MG/DL (0.2-1.0); CALCIUM LEVEL 8.2 MG/DL (8.8-10.2); CREATININE FOR GFR 2.41 MG/DL (0.55-1.30); GLOMERULAR FILTRATION RATE 20.4 (>32); POTASSIUM SERUM 4.4 MEQ/L (3.5-5.1); TOTAL PROTEIN 6.1 GM/DL (6.4-8.2)
[2021-07-28] MEDS: HumaLOG INSULIN (NovoLOG) PER UNIT SC SCH ×4 (07:30→20:00)
[2021-07-28 08:20] VITALS: BP 124/60
[2021-07-28 08:28] LABS: CHOLESTEROL RISK RATIO 3.461 (<5)
[2021-07-28 08:49] LABS: HEMOGLOBIN A1c 5.9 %
[2021-07-28 08:49] LABS: C REACTIVE PROTEIN QUANTITATIV 1.86 MG/DL (0.00-0.30)
[2021-07-28] MEDS: FERROUS SULFATE 325MG TAB PO SCH ×2 (08:54→20:10)
[2021-07-28] MEDS: SPIRONOLACTONE 25 MG TAB PO SCH ×2 (08:54→20:09)
[2021-07-28] MEDS: GABAPENTIN 100 MG CAP PO SCH ×3 (08:54→20:10)
[2021-07-28] MEDS: SUCRALFATE 1 GM TAB PO SCH ×4 (08:54→20:10)
[2021-07-28] MEDS: VITAMIN D 1,000 INTERNATIONAL UNITS TABLET PO SCH (08:54)
[2021-07-28] MEDS: allopurinoL 300 MG TAB PO SCH (08:54)
[2021-07-28] MEDS: LORATADINE 10 MG TAB PO SCH (08:54)
[2021-07-28] MEDS: OMEPRAZOLE 20MG CAP PO SCH (08:54)
[2021-07-28] MEDS: METOPROLOL SUCC (TopROL XL) 50MG **XL** TAB PO SCH ×2 (08:55→20:11)
[2021-07-28 10:04] LABS: HEPATITIS B CORE ANTIBODY IGM NEGATIVE (NEGATIVE); HEPATITIS B SURFACE ANTIGEN NEGATIVE (NEGATIVE); HEPATITIS C VIRUS ABY INDEX 0.1 INDEX (<0.8)
[2021-07-28 10:50] LABS: ERYTHROCYTE SEDIMENTATION RATE 68 mm/hr (0-30)
[2021-07-28] MEDS: FUROSEMIDE 100MG/10ML VIAL (J1940) IV SCH ×2 (12:37→17:20)
[2021-07-28 14:00] VITALS: BP 118/58
[2021-07-28] MEDS: LEVEMIR (INSULIN DETEMIR) 1 UNITS/0.01ML SC SCH (20:14)
[2021-07-28 22:00] VITALS: BP 115/53
[2021-07-29] MEDS: FUROSEMIDE 100MG/10ML VIAL (J1940) IV SCH ×5 (00:23→23:12)
[2021-07-29] MEDS: LEVOTHYROXINE 75MCG TABLET (0.075MG) PO SCH (05:48)
[2021-07-29 06:00] VITALS: BP 108/56
[2021-07-29 06:10] LABS: BASO # 0.1 10^3/uL (0.0-0.2); EOS # 0.2 10^3/uL (0.0-0.5); EOS % 4.3 % (0.0-3.0); HEMATOCRIT 27.6 % (36.0-47.0); HEMOGLOBIN 8.5 g/dl (12.0-15.5); LYMPH # 0.8 10^3/uL (1.5-5.0); LYMPH % 16.5 % (24.0-44.0); MEAN CORPUSCULAR HEMOGLOBIN 28.2 pg (27.0-33.0); MEAN CORPUSCULAR HGB CONC 30.8 g/dl (32.0-36.5); MEAN CORPUSCULAR VOLUME 91.7 fl (80.0-96.0); MONO # 0.5 10^3/uL (0.0-0.8); MONO % 10.4 % (2.0-8.0); NEUTROPHILS # 3.4 10^3/uL (1.5-8.5); NEUTROPHILS % 66.2 % (36.0-66.0); PLATELET COUNT, AUTOMATED 233 10^3/uL (150-450); RED BLOOD COUNT 3.01 10^6/uL (4.00-5.40); WHITE BLOOD COUNT 5.1 10^3/uL (4.0-10.0)
[2021-07-29 06:45] LABS: ALBUMIN 2.4 GM/DL (3.2-5.2); BILIRUBIN,TOTAL 0.5 MG/DL (0.2-1.0); CALCIUM LEVEL 7.7 MG/DL (8.8-10.2); CREATININE FOR GFR 2.3 MG/DL (0.55-1.30); GLOMERULAR FILTRATION RATE 21.6 (>32); MAGNESIUM LEVEL 1.8 MG/DL (1.8-2.4); POTASSIUM SERUM 4.4 MEQ/L (3.5-5.1); TOTAL PROTEIN 5.4 GM/DL (6.4-8.2)
[2021-07-29] MEDS: HumaLOG INSULIN (NovoLOG) PER UNIT SC SCH ×4 (07:30→20:05)
[2021-07-29] MEDS: FERROUS SULFATE 325MG TAB PO SCH ×2 (09:11→20:21)
[2021-07-29] MEDS: LORATADINE 10 MG TAB PO SCH (09:11)
[2021-07-29] MEDS: SPIRONOLACTONE 25 MG TAB PO SCH ×2 (09:11→20:21)
[2021-07-29] MEDS: OMEPRAZOLE 20MG CAP PO SCH (09:11)
[2021-07-29] MEDS: GABAPENTIN 100 MG CAP PO SCH ×3 (09:12→20:21)
[2021-07-29] MEDS: METOPROLOL SUCC (TopROL XL) 50MG **XL** TAB PO SCH ×2 (09:12→20:21)
[2021-07-29] MEDS: allopurinoL 300 MG TAB PO SCH (09:12)
[2021-07-29] MEDS: SUCRALFATE 1 GM TAB PO SCH ×4 (09:12→20:21)
[2021-07-29] MEDS: VITAMIN D 1,000 INTERNATIONAL UNITS TABLET PO SCH (09:12)
[2021-07-29] MEDS ORDERED: FERRIC CARBOXYMALTOSE INJ 750 MG, VIAL MATE ADAPTER 1 EACH in NS 250 ML IV ONE (13:00)
[2021-07-29 14:00] VITALS: BP 96/58
[2021-07-29 14:15] VITALS: BP 91/38
[2021-07-29] MEDS ORDERED: TORS20TA2 PO (14:50)
[2021-07-29] MEDS ORDERED: METO1TAB32 PO (14:50)
[2021-07-29] MEDS ORDERED: SPIR-10 PO (14:52)
[2021-07-29] MEDS ORDERED: FUROSEMIDE 20MG/2ML VIAL (J1940) IV ONE (18:00)
[2021-07-29] MEDS: LEVEMIR (INSULIN DETEMIR) 1 UNITS/0.01ML SC SCH (20:21)
[2021-07-29 22:00] VITALS: BP 119/61
[2021-07-29 23:15] VITALS: BP 122/57
[2021-07-30] MEDS: LEVOTHYROXINE 75MCG TABLET (0.075MG) PO SCH (05:52)
[2021-07-30] MEDS: FUROSEMIDE 100MG/10ML VIAL (J1940) IV SCH ×2 (05:53→12:00)
[2021-07-30 06:00] VITALS: BP 102/57
[2021-07-30 06:25] LABS: BASO # 0.1 10^3/uL (0.0-0.2); BASO % 0.9 % (0.0-1.0); EOS # 0.2 10^3/uL (0.0-0.5); EOS % 2.1 % (0.0-3.0); HEMATOCRIT 28.2 % (36.0-47.0); HEMOGLOBIN 8.7 g/dl (12.0-15.5); LYMPH # 0.9 10^3/uL (1.5-5.0); LYMPH % 12.7 % (24.0-44.0); MEAN CORPUSCULAR HEMOGLOBIN 28.4 pg (27.0-33.0); MEAN CORPUSCULAR HGB CONC 30.9 g/dl (32.0-36.5); MEAN CORPUSCULAR VOLUME 92.2 fl (80.0-96.0); MONO # 0.7 10^3/uL (0.0-0.8); MONO % 10.2 % (2.0-8.0); PLATELET COUNT, AUTOMATED 258 10^3/uL (150-450); RED BLOOD COUNT 3.06 10^6/uL (4.00-5.40)
[2021-07-30 06:47] LABS: ALBUMIN 2.5 GM/DL (3.2-5.2); BILIRUBIN,TOTAL 0.6 MG/DL (0.2-1.0); CALCIUM LEVEL 7.9 MG/DL (8.8-10.2); CREATININE FOR GFR 2.46 MG/DL (0.55-1.30); GLOMERULAR FILTRATION RATE 19.9 (>32); MAGNESIUM LEVEL 1.8 MG/DL (1.8-2.4); POTASSIUM SERUM 4.4 MEQ/L (3.5-5.1); TOTAL PROTEIN 5.6 GM/DL (6.4-8.2)
[2021-07-30] MEDS: SUCRALFATE 1 GM TAB PO SCH ×2 (07:53→12:44)
[2021-07-30] MEDS: GABAPENTIN 100 MG CAP PO SCH (07:53)
[2021-07-30] MEDS: FERROUS SULFATE 325MG TAB PO SCH (07:53)
[2021-07-30] MEDS: LORATADINE 10 MG TAB PO SCH (07:53)
[2021-07-30] MEDS: SPIRONOLACTONE 25 MG TAB PO SCH (07:53)
[2021-07-30] MEDS: OMEPRAZOLE 20MG CAP PO SCH (07:53)
[2021-07-30] MEDS: VITAMIN D 1,000 INTERNATIONAL UNITS TABLET PO SCH (07:53)
[2021-07-30] MEDS: HumaLOG INSULIN (NovoLOG) PER UNIT SC SCH ×2 (07:53→12:44)
[2021-07-30] MEDS: allopurinoL 300 MG TAB PO SCH (07:53)
[2021-07-30 09:00] VITALS: BP 105/48
[2021-07-30] MEDS: METOPROLOL SUCC (TopROL XL) 50MG **XL** TAB PO SCH (09:00)
[2021-07-30 12:26] LABS: CK-MB VALUE MASS 1.7 NG/ML (<3.6); MB/CK RELATIVE INDEX 2.1 (< OR =4)
[2021-07-30] MEDS ORDERED: TORSEMIDE 20 MG TAB PO ONE (13:30)
[2021-07-30 13:42] VITALS: BP 118/56
[2021-09-21] MEDS ORDERED: GLIM2TAB4 PO (13:46)
== END 2021-07-30 14:34 | disposition home or self-care (01) | DRG 291 ==
LOC: M ED 12:23 → M ED INP 15:31 → M MSPAV 22:50
PROVIDERS: ADMIT Internal Medicine; ATTEND Family Medicine
PROC: 0W9G3ZZ Drainage of Peritoneal Cavity, Percutaneous Approach (ICD-10-PCS; principal; 2021-07-27 13:00)
DX: I13.0 Hypertensive heart and chronic kidney disease with heart failure and stage 1 through stage 4 chronic kidney disease, or unspecified chronic kidney disease (principal); I50.33 Acute on chronic diastolic (congestive) heart failure; N18.4 Chronic kidney disease, stage 4 (severe); R18.8 Other ascites; I47.2 Ventricular tachycardia; D50.9 Iron deficiency anemia, unspecified; I48.91 Unspecified atrial fibrillation; E11.22 Type 2 diabetes mellitus with diabetic chronic kidney disease; E03.9 Hypothyroidism, unspecified; E78.5 Hyperlipidemia, unspecified; Z66 Do not resuscitate; M06.9 Rheumatoid arthritis, unspecified; M10.9 Gout, unspecified; K74.60 Unspecified cirrhosis of liver; D63.1 Anemia in chronic kidney disease; E11.42 Type 2 diabetes mellitus with diabetic polyneuropathy; I95.9 Hypotension, unspecified; Z95.0 Presence of cardiac pacemaker; Z96.653 Presence of artificial knee joint, bilateral; Z90.49 Acquired absence of other specified parts of digestive tract; Z87.891 Personal history of nicotine dependence; Z20.822 Contact with and (suspected) exposure to COVID-19; Z79.4 Long term (current) use of insulin; Z79.82 Long term (current) use of aspirin; Z79.899 Other long term (current) drug therapy; Z88.5 Allergy status to narcotic agent; Z91.040 Latex allergy status; Z87.11 Personal history of peptic ulcer disease; Z85.828 Personal history of other malignant neoplasm of skin; Z91.048 Other nonmedicinal substance allergy status

== ENCOUNTER → 2021-07-25 | Outpatient (REF) | payer MEDICARE, OTHER ==
[~2021-07-25] MED LIST changes: +ALLO300T2 PO; +ASPI-255 PO; +CEFD300CAP PO; +DOXY100T PO; +GABA-1171 PO; -LEVO250T12 PO; +LEVO250T3 PO; +METO1TAB32 PO; +OMEP-173 PO; -OMEP-218 PO; +POTA-151 PO; -POTA20TA6 PO; +TORS100T PO; +TORS20TA2 PO; +VANC250C3 PO
== END ==
LOC: M LAB REF 16:58
PROVIDERS: ATTEND Internal Medicine Nephrology
DX: E83.42 Hypomagnesemia (principal)

== ENCOUNTER 2021-08-12 10:54 | Observation (INO) | payer MEDICARE, OTHER ==
[~2021-08-12] VITALS: Ht 149.9 cm; Wt 94.2 kg
[~2021-08-12 10:54] MED LIST changes: +ALLO300T2 PO; +GABA-1171 PO; +METO1TAB32 PO; -OMEP-173 PO; +OMEP-218 PO; +TORS20TA2 PO
[2021-08-12 12:13] LABS: BASO # 0.1 10^3/uL (0.0-0.2); BASO % 0.7 % (0.0-1.0); EOS # 0.1 10^3/uL (0.0-0.5); EOS % 0.9 % (0.0-3.0); HEMATOCRIT 32.6 % (36.0-47.0); LYMPH # 0.6 10^3/uL (1.5-5.0); LYMPH % 8.6 % (24.0-44.0); MEAN CORPUSCULAR HEMOGLOBIN 29.4 pg (27.0-33.0); MEAN CORPUSCULAR HGB CONC 30.7 g/dl (32.0-36.5); MEAN CORPUSCULAR VOLUME 95.9 fl (80.0-96.0); MONO # 0.6 10^3/uL (0.0-0.8); NEUTROPHILS # 5.6 10^3/uL (1.5-8.5); NEUTROPHILS % 79.8 % (36.0-66.0); PLATELET COUNT, AUTOMATED 240 10^3/uL (150-450)
[2021-08-12 12:24] LABS: INR 1.17; PROTHROMBIN TIME 15.3 SECONDS (12.7-14.5)
[2021-08-12 12:25] LABS: PARTIAL THROMBOPLASTIN TIME 38.8 SECONDS (25.9-37.0)
[2021-08-12] MEDS ORDERED: TORS100T PO (12:33)
[2021-08-12] MEDS ORDERED: TOPR50TA PO (12:33)
[2021-08-12] MEDS ORDERED: ASPI-255 PO (12:33)
[2021-08-12 12:45] LABS: ERYTHROCYTE SEDIMENTATION RATE 61 mm/hr (0-30)
[2021-08-12 12:53] LABS: ALBUMIN 2.6 GM/DL (3.2-5.2); BILIRUBIN,DIRECT 0.4 MG/DL (0.0-0.2); BILIRUBIN,TOTAL 0.7 MG/DL (0.2-1.0); C REACTIVE PROTEIN QUANTITATIV 2.14 MG/DL (0.00-0.30); CALCIUM LEVEL 8.1 MG/DL (8.8-10.2); CREATININE FOR GFR 2.4 MG/DL (0.55-1.30); GLOMERULAR FILTRATION RATE 20.5 (>32); MAGNESIUM LEVEL 2.6 MG/DL (1.8-2.4); THYROID STIMULATING HORMONE 4.15 uIU/ML (0.358-3.740); TOTAL PROTEIN 5.9 GM/DL (6.4-8.2)
[2021-08-12 12:53] LABS: RSV AMPLIFICATION NEGATIVE (NEGATIVE)
[2021-08-12] MEDS ORDERED: ONDANSETRON 4MG/2ML VIAL IV ONE (13:10)
[2021-08-12] MEDS ORDERED: NS 500 ML IV ONE (13:20)
[2021-08-12] MEDS ORDERED: SPIR-10 PO (13:55)
[2021-08-12] MEDS ORDERED: HOME MED LIST COMPLETE! XX SCH (14:00)
[2021-08-12] MEDS ORDERED: CALCIUM GLUCONATE 1,000 MG in D5W MINI-BAG PLUS 100 ML IV ONE (14:00)
[2021-08-12] MEDS ORDERED: SOD POLYSTYRENE SULFONATE SUSP 15 GM/60 ML UD PO ONE (14:35)
[2021-08-12] MEDS ORDERED: FLUTICASONE PROP 0.05% NASAL SPRAY 16 GM (FLONASE) NARES PRN (15:45)
[2021-08-12] MEDS ORDERED: ACETAMINOPHEN TAB 650MG DOSE (2X325MG) PO PRN (15:45)
[2021-08-12] MEDS ORDERED: DEXTROSE 50% 50 ML SYRINGE IV PRN (16:00)
[2021-08-12] MEDS ORDERED: GLUCOSE 4GM CHEW TABLET PO PRN (16:00)
[2021-08-12] MEDS ORDERED: GLUCAGON INJ 1MG VIAL SC PRN (16:00)
[2021-08-12] MEDS ORDERED: PILL CUTTER 1 EACH XX PRN (16:10)
[2021-08-12] MEDS: SUCRALFATE 1 GM TAB PO SCH ×2 (17:30→21:00)
[2021-08-12] MEDS: HumaLOG INSULIN (NovoLOG) PER UNIT SC SCH ×2 (17:30→21:00)
[2021-08-12] MEDS ORDERED: LEVEMIR (INSULIN DETEMIR) 1 UNITS/0.01ML SC SCH (18:00)
[2021-08-12] MEDS: GABAPENTIN 100 MG CAP PO SCH (21:00)
[2021-08-12] MEDS: CALCIUM/VITAMIN D 500 MG TAB PO SCH (21:00)
[2021-08-12] MEDS: LACTIC ACID 12% LOTION 225 GM BTL TOP SCH (21:00)
[2021-08-12] MEDS: FERROUS SULFATE 325MG TAB PO SCH (21:00)
[2021-08-12] MEDS: METOPROLOL SUCC (TopROL XL) 50MG **XL** TAB PO SCH (21:00)
[2021-08-13] MEDS: LEVOTHYROXINE 75MCG TABLET (0.075MG) PO SCH (05:09)
[2021-08-13 07:23] LABS: HEMATOCRIT 31.7 % (36.0-47.0); HEMOGLOBIN 9.5 g/dl (12.0-15.5); MEAN CORPUSCULAR HEMOGLOBIN 28.8 pg (27.0-33.0); MEAN CORPUSCULAR VOLUME 96.1 fl (80.0-96.0); PLATELET COUNT, AUTOMATED 234 10^3/uL (150-450); WHITE BLOOD COUNT 6.2 10^3/uL (4.0-10.0)
[2021-08-13] MEDS: SUCRALFATE 1 GM TAB PO SCH ×4 (07:30→21:38)
[2021-08-13] MEDS: HumaLOG INSULIN (NovoLOG) PER UNIT SC SCH ×4 (07:30→21:00)
[2021-08-13 09:06] LABS: CALCIUM LEVEL 8.2 MG/DL (8.8-10.2); CREATININE FOR GFR 2.17 MG/DL (0.55-1.30); MAGNESIUM LEVEL 2.6 MG/DL (1.8-2.4); POTASSIUM SERUM 5.4 MEQ/L (3.5-5.1)
[2021-08-13] MEDS: ASPIRIN ENTERIC 325 MG TAB PO SCH (09:47)
[2021-08-13] MEDS: allopurinoL 300 MG TAB PO SCH (09:47)
[2021-08-13] MEDS: METOPROLOL SUCC (TopROL XL) 50MG **XL** TAB PO SCH ×2 (09:49→21:00)
[2021-08-13] MEDS: GABAPENTIN 100 MG CAP PO SCH ×3 (09:49→21:37)
[2021-08-13] MEDS: FERROUS SULFATE 325MG TAB PO SCH ×2 (09:50→21:38)
[2021-08-13] MEDS: CALCIUM/VITAMIN D 500 MG TAB PO SCH ×2 (09:50→21:37)
[2021-08-13] MEDS: MAGNESIUM OXIDE 400MG TAB (MAG-OX) PO SCH (09:50)
[2021-08-13] MEDS: LORATADINE 10 MG TAB PO SCH (09:50)
[2021-08-13] MEDS: OMEPRAZOLE 20 MG CAP PO SCH (09:50)
[2021-08-13] MEDS: VITAMIN D 1,000 INTERNATIONAL UNITS TABLET PO SCH (09:50)
[2021-08-13 15:30] VITALS: BP 101/45
[2021-08-13] MEDS: TORSEMIDE 100 MG TAB PO SCH (16:59)
[2021-08-13] MEDS: LACTIC ACID 12% LOTION 225 GM BTL TOP SCH (21:39)
[2021-08-13 22:00] VITALS: BP 108/50
[2021-08-14] MEDS: LEVOTHYROXINE 75MCG TABLET (0.075MG) PO SCH (05:34)
[2021-08-14 06:00] VITALS: BP 107/48
[2021-08-14 06:13] LABS: HEMATOCRIT 31.7 % (36.0-47.0); HEMOGLOBIN 9.6 g/dl (12.0-15.5); MEAN CORPUSCULAR HEMOGLOBIN 28.9 pg (27.0-33.0); MEAN CORPUSCULAR HGB CONC 30.3 g/dl (32.0-36.5); MEAN CORPUSCULAR VOLUME 95.5 fl (80.0-96.0); PLATELET COUNT, AUTOMATED 224 10^3/uL (150-450); RED BLOOD COUNT 3.32 10^6/uL (4.00-5.40); WHITE BLOOD COUNT 7.2 10^3/uL (4.0-10.0)
[2021-08-14 06:32] LABS: CALCIUM LEVEL 8.3 MG/DL (8.8-10.2); CREATININE FOR GFR 2.28 MG/DL (0.55-1.30); GLOMERULAR FILTRATION RATE 21.7 (>32); POTASSIUM SERUM 5.1 MEQ/L (3.5-5.1)
[2021-08-14] MEDS: ASPIRIN ENTERIC 325 MG TAB PO SCH (07:52)
[2021-08-14] MEDS: GABAPENTIN 100 MG CAP PO SCH (07:53)
[2021-08-14] MEDS: HumaLOG INSULIN (NovoLOG) PER UNIT SC SCH ×2 (07:53→11:33)
[2021-08-14] MEDS: LORATADINE 10 MG TAB PO SCH (07:53)
[2021-08-14] MEDS: SUCRALFATE 1 GM TAB PO SCH ×2 (07:53→11:33)
[2021-08-14] MEDS: MAGNESIUM OXIDE 400MG TAB (MAG-OX) PO SCH (07:54)
[2021-08-14] MEDS: FERROUS SULFATE 325MG TAB PO SCH (07:54)
[2021-08-14] MEDS: OMEPRAZOLE 20 MG CAP PO SCH (07:54)
[2021-08-14] MEDS: allopurinoL 300 MG TAB PO SCH (07:54)
[2021-08-14] MEDS: CALCIUM/VITAMIN D 500 MG TAB PO SCH (07:54)
[2021-08-14] MEDS: VITAMIN D 1,000 INTERNATIONAL UNITS TABLET PO SCH (07:55)
[2021-08-14 08:01] VITALS: BP 100/50
[2021-08-14 08:59] VITALS: BP 100/50
[2021-08-14] MEDS: METOPROLOL SUCC (TopROL XL) 50MG **XL** TAB PO SCH (08:59)
[2021-08-14] MEDS: TORSEMIDE 100 MG TAB PO SCH (08:59)
== END 2021-08-14 12:32 | disposition home health service (06) ==
LOC: EDBD 10:54 → M ED 10:54 → M ED INP 10:55 → ENRESERV 08-13 13:05 → M MSPAV 08-13 15:19
PROVIDERS: ADMIT Internal Medicine; ATTEND Internal Medicine
DX: E87.5 Hyperkalemia (principal); E11.649 Type 2 diabetes mellitus with hypoglycemia without coma; R29.6 Repeated falls; M25.551 Pain in right hip; N18.4 Chronic kidney disease, stage 4 (severe); E11.22 Type 2 diabetes mellitus with diabetic chronic kidney disease; D50.9 Iron deficiency anemia, unspecified; M06.9 Rheumatoid arthritis, unspecified; M10.9 Gout, unspecified; E03.9 Hypothyroidism, unspecified; I13.0 Hypertensive heart and chronic kidney disease with heart failure and stage 1 through stage 4 chronic kidney disease, or unspecified chronic kidney disease; I50.30 Unspecified diastolic (congestive) heart failure; E78.5 Hyperlipidemia, unspecified; K27.9 Peptic ulcer, site unspecified, unspecified as acute or chronic, without hemorrhage or perforation; E11.42 Type 2 diabetes mellitus with diabetic polyneuropathy; I48.91 Unspecified atrial fibrillation; Z87.19 Personal history of other diseases of the digestive system; G31.1 Senile degeneration of brain, not elsewhere classified; K74.60 Unspecified cirrhosis of liver; Z79.899 Other long term (current) drug therapy; Z79.82 Long term (current) use of aspirin; Z91.040 Latex allergy status; Z88.5 Allergy status to narcotic agent; J30.1 Allergic rhinitis due to pollen; Z87.891 Personal history of nicotine dependence
CPT/HCPCS: 70450; 71045; 72125; 73502; 80048; 80076; 83605; 83735; 84443; 85025; 85610; 85652; 85730; 86140; 87631; 93005; 93041; 94760; 96365; 96375; 99285; G0378; J0610; J2405

== ENCOUNTER 2021-08-16 15:06 | Inpatient (IN) | payer MEDICARE, OTHER ==
[~2021-08-16] VITALS: Ht 152.4 cm; Wt 89.1 kg
[~2021-08-16 15:06] MED LIST changes: +ASPI-255 PO; +OMEP-173 PO; -OMEP-218 PO; +TORS100T PO
[2021-08-16] MEDS ORDERED: HOME MED LIST COMPLETE! XX SCH (16:10)
[2021-08-16 16:14] LABS: BASO # 0.1 10^3/uL (0.0-0.2); EOS # 0.1 10^3/uL (0.0-0.5); EOS % 1.5 % (0.0-3.0); HEMATOCRIT 30.6 % (36.0-47.0); HEMOGLOBIN 9.3 g/dl (12.0-15.5); LYMPH # 0.7 10^3/uL (1.5-5.0); LYMPH % 12.1 % (24.0-44.0); MEAN CORPUSCULAR HEMOGLOBIN 29.2 pg (27.0-33.0); MEAN CORPUSCULAR HGB CONC 30.4 g/dl (32.0-36.5); MEAN CORPUSCULAR VOLUME 95.9 fl (80.0-96.0); MONO # 0.7 10^3/uL (0.0-0.8); MONO % 11.5 % (2.0-8.0); NEUTROPHILS # 4.4 10^3/uL (1.5-8.5); NEUTROPHILS % 72.6 % (36.0-66.0); PLATELET COUNT, AUTOMATED 234 10^3/uL (150-450); RED BLOOD COUNT 3.19 10^6/uL (4.00-5.40); WHITE BLOOD COUNT 6.1 10^3/uL (4.0-10.0)
[2021-08-16 17:09] LABS: CK-MB VALUE MASS 3.5 NG/ML (<3.6); MB/CK RELATIVE INDEX 2.59 (< OR =4)
[2021-08-16 17:55] LABS: CREATININE FOR GFR 2.44 MG/DL (0.55-1.30); GLOMERULAR FILTRATION RATE 20.1 (>32)
[2021-08-16 17:56] LABS: BILIRUBIN,TOTAL 0.5 MG/DL (0.2-1.0); CALCIUM LEVEL 7.7 MG/DL (8.8-10.2); POTASSIUM SERUM 6.1 MEQ/L (3.5-5.1)
[2021-08-16 17:57] LABS: ALBUMIN 2.2 GM/DL (3.2-5.2); BILIRUBIN,DIRECT 0.2 MG/DL (0.0-0.2); THYROID STIMULATING HORMONE 4.92 uIU/ML (0.358-3.740); TOTAL PROTEIN 5.6 GM/DL (6.4-8.2)
[2021-08-16] MEDS ORDERED: dexameTHASONE 20MG/5ML VIAL (J1100 PER 1MG) IV ONE (18:30)
[2021-08-16] MEDS ORDERED: CALCIUM GLUCONATE 1,000 MG in D5W MINI-BAG PLUS 100 ML IV ONE (18:30)
[2021-08-16] MEDS ORDERED: ACETAMINOPHEN TAB 650MG DOSE (2X325MG) PO ONE (18:45)
[2021-08-16] MEDS ORDERED: ALBUTEROL 90 MCG/ACT 8GM HFA INHALER INH PRN (20:10)
[2021-08-16] MEDS ORDERED: FLUTICASONE PROP 0.05% NASAL SPRAY 16 GM (FLONASE) NARES PRN (20:30)
[2021-08-16] MEDS ORDERED: GLUCAGON INJ 1MG VIAL SC PRN (20:40)
[2021-08-16] MEDS ORDERED: DEXTROSE 50% 50 ML SYRINGE IV PRN (20:40)
[2021-08-16] MEDS ORDERED: GLUCOSE 4GM CHEW TABLET PO PRN (20:40)
[2021-08-16] MEDS ORDERED: CALCIUM/VITAMIN D 500 MG TAB PO SCH (21:00)
[2021-08-16 21:15] LABS: C REACTIVE PROTEIN QUANTITATIV 6.11 MG/DL (0.00-0.30); MAGNESIUM LEVEL 2.6 MG/DL (1.8-2.4)
[2021-08-16 22:56] VITALS: BP 137/64
[2021-08-16] MEDS: HumaLOG INSULIN (NovoLOG) PER UNIT SC SCH (23:15)
[2021-08-16] MEDS: LACTIC ACID 12% LOTION 225 GM BTL TOP SCH (23:30)
[2021-08-16] MEDS: CALCIUM/VITAMIN D 500 MG TAB PO SCH (23:30)
[2021-08-16] MEDS: FERROUS SULFATE 325MG TAB PO SCH (23:32)
[2021-08-16] MEDS: SUCRALFATE 1 GM TAB PO SCH (23:32)
[2021-08-16] MEDS: LEVEMIR (INSULIN DETEMIR) 1 UNITS/0.01ML SC SCH (23:34)
[2021-08-16] MEDS: GABAPENTIN 100 MG CAP PO SCH (23:34)
[2021-08-16] MEDS: METOPROLOL SUCC (TopROL XL) 50MG **XL** TAB PO SCH (23:34)
[2021-08-16] MEDS: HEPARIN SOD (PORCINE) 5000UNITS/ML 1ML VIAL/SYRINGE SQ SCH (23:34)
[2021-08-17] VITALS (8 sets, daily range): BP systolic 107–137; BP diastolic 60–79; O2SAT 97–99
[2021-08-17] MEDS ORDERED: REMDESIVIR 200 MG in NS 250 ML IV ONE (01:00)
[2021-08-17] MEDS ORDERED: SODIUM CHLORIDE 0.9% INJ 10 ML SYR IV ONE (03:00)
[2021-08-17] MEDS ORDERED: SOD POLYSTYRENE SULFONATE SUSP 15 GM/60 ML UD PO ONE ×2 (04:00→09:00)
[2021-08-17] MEDS: HEPARIN SOD (PORCINE) 5000UNITS/ML 1ML VIAL/SYRINGE SQ SCH ×3 (06:31→21:38)
[2021-08-17] MEDS: LEVOTHYROXINE 75MCG TABLET (0.075MG) PO SCH (06:31)
[2021-08-17] MEDS: ASPIRIN ENTERIC 325 MG TAB PO SCH (08:07)
[2021-08-17] MEDS: VITAMIN D 1,000 INTERNATIONAL UNITS TABLET PO SCH (08:07)
[2021-08-17] MEDS: OMEPRAZOLE 20 MG CAP PO SCH (08:07)
[2021-08-17] MEDS: allopurinoL 300 MG TAB PO SCH (08:08)
[2021-08-17] MEDS: FERROUS SULFATE 325MG TAB PO SCH ×2 (08:08→21:38)
[2021-08-17] MEDS: SUCRALFATE 1 GM TAB PO SCH ×4 (08:08→21:38)
[2021-08-17] MEDS: LORATADINE 10 MG TAB PO SCH (08:08)
[2021-08-17] MEDS: GABAPENTIN 100 MG CAP PO SCH ×3 (08:08→21:38)
[2021-08-17] MEDS: METOPROLOL SUCC (TopROL XL) 50MG **XL** TAB PO SCH ×2 (08:09→21:38)
[2021-08-17] MEDS: dexameTHASONE 4 MG/ML 1ML VIAL (J1100 PER 1MG) IV SCH (08:10)
[2021-08-17] MEDS: CALCIUM/VITAMIN D 500 MG TAB PO SCH ×2 (08:15→21:38)
[2021-08-17 08:19] LABS: HEMATOCRIT 30.7 % (36.0-47.0); HEMOGLOBIN 9.1 g/dl (12.0-15.5); LYMPH # 0.5 10^3/uL (1.5-5.0); LYMPH % 12.3 % (24.0-44.0); MEAN CORPUSCULAR HEMOGLOBIN 28.3 pg (27.0-33.0); MEAN CORPUSCULAR HGB CONC 29.6 g/dl (32.0-36.5); MEAN CORPUSCULAR VOLUME 95.6 fl (80.0-96.0); MONO # 0.1 10^3/uL (0.0-0.8); MONO % 2.8 % (2.0-8.0); NEUTROPHILS # 3.3 10^3/uL (1.5-8.5); NEUTROPHILS % 83.9 % (36.0-66.0); PLATELET COUNT, AUTOMATED 230 10^3/uL (150-450); RED BLOOD COUNT 3.21 10^6/uL (4.00-5.40); WHITE BLOOD COUNT 3.9 10^3/uL (4.0-10.0)
[2021-08-17] MEDS: HumaLOG INSULIN (NovoLOG) PER UNIT SC SCH ×4 (08:22→21:00)
[2021-08-17 08:33] LABS: INR 1.23; PROTHROMBIN TIME 15.9 SECONDS (12.7-14.5)
[2021-08-17 08:34] LABS: FIBRINOGEN 518 MG/DL (268-480); PARTIAL THROMBOPLASTIN TIME 45.5 SECONDS (25.9-37.0)
[2021-08-17 08:44] LABS: ALBUMIN 2.2 GM/DL (3.2-5.2); BILIRUBIN,DIRECT 0.2 MG/DL (0.0-0.2); BILIRUBIN,TOTAL 0.5 MG/DL (0.2-1.0); CALCIUM LEVEL 8.3 MG/DL (8.8-10.2); CREATININE FOR GFR 2.44 MG/DL (0.55-1.30); GLOMERULAR FILTRATION RATE 20.1 (>32); MAGNESIUM LEVEL 2.7 MG/DL (1.8-2.4); POTASSIUM SERUM 5.8 MEQ/L (3.5-5.1); TOTAL PROTEIN 6.3 GM/DL (6.4-8.2)
[2021-08-17] MEDS ORDERED: FUROSEMIDE 100MG/10ML VIAL (J1940) IV SCH (09:00)
[2021-08-17 09:20] LABS: D-DIMER QUANT > 4000 ng/ml (<500)
[2021-08-17] MEDS: cefTRIAXone SOD 1 GM in D5W MINI-BAG PLUS 50 ML IV SCH (13:56)
[2021-08-17] MEDS: FUROSEMIDE 100MG/10ML VIAL (J1940) IV SCH ×2 (14:22→21:37)
[2021-08-17] MEDS: DOXYCYCLINE HYCLATE 100 MG in D5W MINI-BAG PLUS 100 ML IV SCH (14:23)
[2021-08-17 17:25] LABS: SPEC. GRAVITY BODY FLUIDS 1.026 (NOT ESTABLISHED)
[2021-08-17 17:30] LABS: APPEARANCE, BODY FLUID CLEAR (CLEAR); ASCITES FL COLOR PALE YELLOW (COLORLESS); SOURCE, BODY FLUID ASCITES
[2021-08-17 17:35] LABS: SOURCE, BODY FLUID ALBUMIN ASCITES; SOURCE, BODY FLUID GLUCOSE ASCITES; SOURCE, BODY FLUID TOT PROTEIN ASCITES; TOTAL PROTEIN, BODY FLUID 3.8 G/DL (NOT ESTABLISHED)
[2021-08-17] MEDS: LACTIC ACID 12% LOTION 225 GM BTL TOP SCH (21:00)
[2021-08-17] MEDS: LEVEMIR (INSULIN DETEMIR) 1 UNITS/0.01ML SC SCH (21:37)
[2021-08-18] VITALS (10 sets, daily range): BP systolic 108–146; BP diastolic 53–75; O2SAT 94–96
[2021-08-18] MEDS: REMDESIVIR 100 MG in NS 250 ML IV SCH (01:08)
[2021-08-18] MEDS: SODIUM CHLORIDE 0.9% INJ 10 ML SYR IV SCH (01:08)
[2021-08-18] MEDS: DOXYCYCLINE HYCLATE 100 MG in D5W MINI-BAG PLUS 100 ML IV SCH ×2 (02:27→14:10)
[2021-08-18] MEDS: FUROSEMIDE 100MG/10ML VIAL (J1940) IV SCH ×4 (02:28→20:46)
[2021-08-18] MEDS: LEVOTHYROXINE 75MCG TABLET (0.075MG) PO SCH (05:31)
[2021-08-18] MEDS: HEPARIN SOD (PORCINE) 5000UNITS/ML 1ML VIAL/SYRINGE SQ SCH ×3 (05:32→22:51)
[2021-08-18 07:50] LABS: BASO % 0.2 % (0.0-1.0); HEMATOCRIT 28.8 % (36.0-47.0); HEMOGLOBIN 8.9 g/dl (12.0-15.5); LYMPH # 0.4 10^3/uL (1.5-5.0); LYMPH % 9.9 % (24.0-44.0); MEAN CORPUSCULAR HEMOGLOBIN 28.8 pg (27.0-33.0); MEAN CORPUSCULAR HGB CONC 30.9 g/dl (32.0-36.5); MEAN CORPUSCULAR VOLUME 93.2 fl (80.0-96.0); MONO # 0.4 10^3/uL (0.0-0.8); MONO % 9.4 % (2.0-8.0); NEUTROPHILS # 3.2 10^3/uL (1.5-8.5); NEUTROPHILS % 79.3 % (36.0-66.0); PLATELET COUNT, AUTOMATED 215 10^3/uL (150-450); RED BLOOD COUNT 3.09 10^6/uL (4.00-5.40)
[2021-08-18 08:03] LABS: INR 1.22; PROTHROMBIN TIME 15.8 SECONDS (12.7-14.5)
[2021-08-18 08:04] LABS: PARTIAL THROMBOPLASTIN TIME 44.6 SECONDS (25.9-37.0)
[2021-08-18 08:15] LABS: ALBUMIN 2.5 GM/DL (3.2-5.2); BILIRUBIN,DIRECT 0.2 MG/DL (0.0-0.2); BILIRUBIN,TOTAL 0.3 MG/DL (0.2-1.0); CALCIUM LEVEL 8.1 MG/DL (8.8-10.2); CREATININE FOR GFR 1.99 MG/DL (0.55-1.30); GLOMERULAR FILTRATION RATE 25.4 (>32); MAGNESIUM LEVEL 2.2 MG/DL (1.8-2.4); POTASSIUM SERUM 4.2 MEQ/L (3.5-5.1); TOTAL PROTEIN 6.1 GM/DL (6.4-8.2); URIC ACID 3.3 MG/DL (2.6-6.0)
[2021-08-18] MEDS: METOPROLOL SUCC (TopROL XL) 50MG **XL** TAB PO SCH ×2 (08:24→20:46)
[2021-08-18] MEDS: OMEPRAZOLE 20 MG CAP PO SCH (08:24)
[2021-08-18] MEDS: FERROUS SULFATE 325MG TAB PO SCH ×2 (08:24→20:46)
[2021-08-18] MEDS: ASPIRIN ENTERIC 325 MG TAB PO SCH (08:24)
[2021-08-18] MEDS: CALCIUM/VITAMIN D 500 MG TAB PO SCH ×2 (08:24→20:45)
[2021-08-18] MEDS: GABAPENTIN 100 MG CAP PO SCH ×3 (08:25→20:45)
[2021-08-18] MEDS: SUCRALFATE 1 GM TAB PO SCH ×4 (08:25→20:45)
[2021-08-18] MEDS: dexameTHASONE 4 MG/ML 1ML VIAL (J1100 PER 1MG) IV SCH (08:25)
[2021-08-18] MEDS: LORATADINE 10 MG TAB PO SCH (08:25)
[2021-08-18] MEDS: allopurinoL 300 MG TAB PO SCH (08:25)
[2021-08-18] MEDS: VITAMIN D 1,000 INTERNATIONAL UNITS TABLET PO SCH (08:25)
[2021-08-18] MEDS: HumaLOG INSULIN (NovoLOG) PER UNIT SC SCH ×4 (08:26→20:45)
[2021-08-18 12:57] LABS: PERCENT SATURATION 27.1 % (13.2-45.0)
[2021-08-18] MEDS: cefTRIAXone SOD 1 GM in D5W MINI-BAG PLUS 50 ML IV SCH (13:00)
[2021-08-18] MEDS: LEVEMIR (INSULIN DETEMIR) 1 UNITS/0.01ML SC SCH (20:44)
[2021-08-18] MEDS: LACTIC ACID 12% LOTION 225 GM BTL TOP SCH (20:47)
[2021-08-19] MEDS: REMDESIVIR 100 MG in NS 250 ML IV SCH (01:22)
[2021-08-19] MEDS: FUROSEMIDE 100MG/10ML VIAL (J1940) IV SCH ×4 (02:30→22:52)
[2021-08-19] MEDS: SODIUM CHLORIDE 0.9% INJ 10 ML SYR IV SCH (03:00)
[2021-08-19] MEDS: DOXYCYCLINE HYCLATE 100 MG in D5W MINI-BAG PLUS 100 ML IV SCH ×2 (03:25→13:49)
[2021-08-19 04:00] VITALS: BP 130/64; O2SAT 96
[2021-08-19] MEDS: HEPARIN SOD (PORCINE) 5000UNITS/ML 1ML VIAL/SYRINGE SQ SCH ×3 (06:00→22:51)
[2021-08-19] MEDS: LEVOTHYROXINE 75MCG TABLET (0.075MG) PO SCH (06:00)
[2021-08-19 06:34] LABS: BASO % 0.2 % (0.0-1.0); HEMATOCRIT 28.8 % (36.0-47.0); HEMOGLOBIN 9.1 g/dl (12.0-15.5); LYMPH # 0.5 10^3/uL (1.5-5.0); LYMPH % 8.3 % (24.0-44.0); MEAN CORPUSCULAR HEMOGLOBIN 29.3 pg (27.0-33.0); MEAN CORPUSCULAR HGB CONC 31.6 g/dl (32.0-36.5); MEAN CORPUSCULAR VOLUME 92.6 fl (80.0-96.0); MONO # 0.5 10^3/uL (0.0-0.8); MONO % 8.7 % (2.0-8.0); NEUTROPHILS # 4.4 10^3/uL (1.5-8.5); NEUTROPHILS % 81.9 % (36.0-66.0); PLATELET COUNT, AUTOMATED 216 10^3/uL (150-450); RED BLOOD COUNT 3.11 10^6/uL (4.00-5.40); WHITE BLOOD COUNT 5.4 10^3/uL (4.0-10.0)
[2021-08-19 08:00] VITALS: BP 129/62
[2021-08-19 08:03] LABS: CALCIUM LEVEL 8.2 MG/DL (8.8-10.2); CREATININE FOR GFR 1.88 MG/DL (0.55-1.30); GLOMERULAR FILTRATION RATE 27.1 (>32); MAGNESIUM LEVEL 1.9 MG/DL (1.8-2.4); POTASSIUM SERUM 3.9 MEQ/L (3.5-5.1)
[2021-08-19] MEDS: HumaLOG INSULIN (NovoLOG) PER UNIT SC SCH ×4 (08:15→21:00)
[2021-08-19] MEDS: SUCRALFATE 1 GM TAB PO SCH ×4 (08:15→22:47)
[2021-08-19] MEDS: GABAPENTIN 100 MG CAP PO SCH ×3 (09:25→22:53)
[2021-08-19] MEDS: VITAMIN D 1,000 INTERNATIONAL UNITS TABLET PO SCH (09:26)
[2021-08-19] MEDS: METOPROLOL SUCC (TopROL XL) 50MG **XL** TAB PO SCH ×2 (09:26→22:51)
[2021-08-19] MEDS: ASPIRIN ENTERIC 325 MG TAB PO SCH (09:26)
[2021-08-19] MEDS: OMEPRAZOLE 20 MG CAP PO SCH (09:26)
[2021-08-19] MEDS: allopurinoL 300 MG TAB PO SCH (09:27)
[2021-08-19] MEDS: LORATADINE 10 MG TAB PO SCH (09:27)
[2021-08-19] MEDS: CALCIUM/VITAMIN D 500 MG TAB PO SCH ×2 (09:27→22:48)
[2021-08-19] MEDS: FERROUS SULFATE 325MG TAB PO SCH ×2 (09:27→22:48)
[2021-08-19] MEDS: dexameTHASONE 4 MG/ML 1ML VIAL (J1100 PER 1MG) IV SCH (09:28)
[2021-08-19 12:00] VITALS: BP 133/61
[2021-08-19] MEDS: cefTRIAXone SOD 1 GM in D5W MINI-BAG PLUS 50 ML IV SCH (12:24)
[2021-08-19 15:46] VITALS: BP 130/66
[2021-08-19 16:00] VITALS: BP 130/66
[2021-08-19 20:00] VITALS: BP 126/60; O2SAT 100
[2021-08-19] MEDS: LACTIC ACID 12% LOTION 225 GM BTL TOP SCH (21:00)
[2021-08-19] MEDS: LEVEMIR (INSULIN DETEMIR) 1 UNITS/0.01ML SC SCH (22:47)
[2021-08-20] VITALS: O2SAT 98
[2021-08-20] MEDS: REMDESIVIR 100 MG in NS 250 ML IV SCH (01:10)
[2021-08-20] MEDS: FUROSEMIDE 100MG/10ML VIAL (J1940) IV SCH ×4 (02:52→20:42)
[2021-08-20] MEDS: SODIUM CHLORIDE 0.9% INJ 10 ML SYR IV SCH (02:53)
[2021-08-20] MEDS: DOXYCYCLINE HYCLATE 100 MG in D5W MINI-BAG PLUS 100 ML IV SCH ×2 (02:54→15:15)
[2021-08-20 04:00] VITALS: BP 141/69; O2SAT 99
[2021-08-20] MEDS: HEPARIN SOD (PORCINE) 5000UNITS/ML 1ML VIAL/SYRINGE SQ SCH ×3 (06:17→20:43)
[2021-08-20] MEDS: LEVOTHYROXINE 75MCG TABLET (0.075MG) PO SCH (06:17)
[2021-08-20 07:18] LABS: BASO % 0.3 % (0.0-1.0); HEMOGLOBIN 9.5 g/dl (12.0-15.5); LYMPH # 0.7 10^3/uL (1.5-5.0); LYMPH % 8.5 % (24.0-44.0); MEAN CORPUSCULAR HEMOGLOBIN 28.8 pg (27.0-33.0); MEAN CORPUSCULAR HGB CONC 30.6 g/dl (32.0-36.5); MEAN CORPUSCULAR VOLUME 93.9 fl (80.0-96.0); MONO # 0.7 10^3/uL (0.0-0.8); MONO % 9.3 % (2.0-8.0); NEUTROPHILS # 6.2 10^3/uL (1.5-8.5); NEUTROPHILS % 80.1 % (36.0-66.0); PLATELET COUNT, AUTOMATED 223 10^3/uL (150-450); WHITE BLOOD COUNT 7.8 10^3/uL (4.0-10.0)
[2021-08-20 07:49] LABS: ALBUMIN 2.6 GM/DL (3.2-5.2); BILIRUBIN,DIRECT 0.2 MG/DL (0.0-0.2); BILIRUBIN,TOTAL 0.4 MG/DL (0.2-1.0); CALCIUM LEVEL 8.2 MG/DL (8.8-10.2); CREATININE FOR GFR 1.84 MG/DL (0.55-1.30); GLOMERULAR FILTRATION RATE 27.8 (>32); MAGNESIUM LEVEL 1.6 MG/DL (1.8-2.4); POTASSIUM SERUM 3.8 MEQ/L (3.5-5.1); TOTAL PROTEIN 6.2 GM/DL (6.4-8.2)
[2021-08-20 07:53] LABS: INR 1.24
[2021-08-20 07:54] LABS: PARTIAL THROMBOPLASTIN TIME 42.5 SECONDS (25.9-37.0)
[2021-08-20] MEDS: GABAPENTIN 100 MG CAP PO SCH ×3 (08:50→20:41)
[2021-08-20] MEDS: ASPIRIN ENTERIC 325 MG TAB PO SCH (08:50)
[2021-08-20] MEDS: HumaLOG INSULIN (NovoLOG) PER UNIT SC SCH ×4 (08:50→20:43)
[2021-08-20] MEDS: OMEPRAZOLE 20 MG CAP PO SCH (08:50)
[2021-08-20] MEDS: VITAMIN D 1,000 INTERNATIONAL UNITS TABLET PO SCH (08:51)
[2021-08-20] MEDS: allopurinoL 300 MG TAB PO SCH (08:51)
[2021-08-20] MEDS: SUCRALFATE 1 GM TAB PO SCH ×4 (08:51→20:41)
[2021-08-20] MEDS: FERROUS SULFATE 325MG TAB PO SCH ×2 (08:51→20:41)
[2021-08-20] MEDS: dexameTHASONE 4 MG/ML 1ML VIAL (J1100 PER 1MG) IV SCH (08:52)
[2021-08-20] MEDS: CALCIUM/VITAMIN D 500 MG TAB PO SCH ×2 (08:52→20:41)
[2021-08-20] MEDS: LORATADINE 10 MG TAB PO SCH (08:52)
[2021-08-20] MEDS: METOPROLOL SUCC (TopROL XL) 50MG **XL** TAB PO SCH ×2 (08:54→20:42)
[2021-08-20] MEDS: cefTRIAXone SOD 1 GM in D5W MINI-BAG PLUS 50 ML IV SCH (12:57)
[2021-08-20 14:00] VITALS: BP 126/60
[2021-08-20 20:00] VITALS: BP 129/62
[2021-08-20] MEDS: POTASSIUM CHLORIDE 10MEQ SR TABLET PO SCH (20:41)
[2021-08-20] MEDS: LEVEMIR (INSULIN DETEMIR) 1 UNITS/0.01ML SC SCH (20:44)
[2021-08-20] MEDS: LACTIC ACID 12% LOTION 225 GM BTL TOP SCH (20:56)
[2021-08-21 00:13] VITALS: O2SAT 99
[2021-08-21] MEDS: FUROSEMIDE 100MG/10ML VIAL (J1940) IV SCH ×4 (01:45→21:22)
[2021-08-21] MEDS: DOXYCYCLINE HYCLATE 100 MG in D5W MINI-BAG PLUS 100 ML IV SCH ×2 (01:45→15:03)
[2021-08-21 04:00] VITALS: BP 138/70
[2021-08-21] MEDS: LEVOTHYROXINE 75MCG TABLET (0.075MG) PO SCH (05:24)
[2021-08-21] MEDS: HEPARIN SOD (PORCINE) 5000UNITS/ML 1ML VIAL/SYRINGE SQ SCH ×3 (05:24→21:22)
[2021-08-21 08:51] LABS: BASO # 0.1 10^3/uL (0.0-0.2); BASO % 1.1 % (0.0-1.0); HEMATOCRIT 38.7 % (36.0-47.0); HEMOGLOBIN 11.2 g/dl (12.0-15.5); LYMPH # 2.1 10^3/uL (1.5-5.0); LYMPH % 18.8 % (24.0-44.0); MEAN CORPUSCULAR HEMOGLOBIN 29.4 pg (27.0-33.0); MEAN CORPUSCULAR HGB CONC 28.9 g/dl (32.0-36.5); MEAN CORPUSCULAR VOLUME 101.6 fl (80.0-96.0); MONO % 9.1 % (2.0-8.0); NEUTROPHILS # 7.4 10^3/uL (1.5-8.5); NEUTROPHILS % 67.2 % (36.0-66.0); PLATELET COUNT, AUTOMATED 221 10^3/uL (150-450); RED BLOOD COUNT 3.81 10^6/uL (4.00-5.40); WHITE BLOOD COUNT 10.9 10^3/uL (4.0-10.0)
[2021-08-21] MEDS: FERROUS SULFATE 325MG TAB PO SCH ×2 (09:12→21:20)
[2021-08-21] MEDS: LORATADINE 10 MG TAB PO SCH (09:12)
[2021-08-21] MEDS: POTASSIUM CHLORIDE 10MEQ SR TABLET PO SCH ×2 (09:12→21:20)
[2021-08-21] MEDS: HumaLOG INSULIN (NovoLOG) PER UNIT SC SCH ×4 (09:12→21:23)
[2021-08-21] MEDS: VITAMIN D 1,000 INTERNATIONAL UNITS TABLET PO SCH (09:13)
[2021-08-21] MEDS: ASPIRIN ENTERIC 325 MG TAB PO SCH (09:13)
[2021-08-21] MEDS: dexameTHASONE 4 MG/ML 1ML VIAL (J1100 PER 1MG) IV SCH (09:13)
[2021-08-21] MEDS: GABAPENTIN 100 MG CAP PO SCH ×3 (09:13→21:20)
[2021-08-21] MEDS: allopurinoL 300 MG TAB PO SCH (09:13)
[2021-08-21] MEDS: OMEPRAZOLE 20 MG CAP PO SCH (09:14)
[2021-08-21] MEDS: CALCIUM/VITAMIN D 500 MG TAB PO SCH ×2 (09:14→21:20)
[2021-08-21] MEDS: SUCRALFATE 1 GM TAB PO SCH ×4 (09:14→21:20)
[2021-08-21 09:19] LABS: CALCIUM LEVEL 8.3 MG/DL (8.8-10.2); CREATININE FOR GFR 1.81 MG/DL (0.55-1.30); GLOMERULAR FILTRATION RATE 28.4 (>32); MAGNESIUM LEVEL 1.4 MG/DL (1.8-2.4); POTASSIUM SERUM 4.6 MEQ/L (3.5-5.1)
[2021-08-21] MEDS: METOPROLOL SUCC (TopROL XL) 50MG **XL** TAB PO SCH ×2 (10:07→21:22)
[2021-08-21] MEDS: cefTRIAXone SOD 1 GM in D5W MINI-BAG PLUS 50 ML IV SCH (12:13)
[2021-08-21 14:00] VITALS: BP 112/58
[2021-08-21] MEDS ORDERED: MAG SULF 1GM/100ML (MAG RUN) 1 GM in IV 1 EA IV ONE (15:50)
[2021-08-21 20:00] VITALS: BP 123/60
[2021-08-21] MEDS: LACTIC ACID 12% LOTION 225 GM BTL TOP SCH (21:00)
[2021-08-21] MEDS: LEVEMIR (INSULIN DETEMIR) 1 UNITS/0.01ML SC SCH (21:23)
[2021-08-22] MEDS: FUROSEMIDE 100MG/10ML VIAL (J1940) IV SCH ×3 (02:01→14:26)
[2021-08-22] MEDS: DOXYCYCLINE HYCLATE 100 MG in D5W MINI-BAG PLUS 100 ML IV SCH (02:02)
[2021-08-22 02:41] VITALS: O2SAT 98
[2021-08-22 04:00] VITALS: BP 134/69
[2021-08-22] MEDS: LEVOTHYROXINE 75MCG TABLET (0.075MG) PO SCH (05:43)
[2021-08-22] MEDS: HEPARIN SOD (PORCINE) 5000UNITS/ML 1ML VIAL/SYRINGE SQ SCH ×3 (05:44→20:54)
[2021-08-22 08:00] VITALS: O2SAT 98
[2021-08-22] MEDS: CALCIUM/VITAMIN D 500 MG TAB PO SCH ×2 (08:31→20:53)
[2021-08-22] MEDS: LORATADINE 10 MG TAB PO SCH (08:32)
[2021-08-22] MEDS: allopurinoL 300 MG TAB PO SCH (08:32)
[2021-08-22] MEDS: FERROUS SULFATE 325MG TAB PO SCH ×2 (08:32→20:54)
[2021-08-22] MEDS: OMEPRAZOLE 20 MG CAP PO SCH (08:32)
[2021-08-22] MEDS: SUCRALFATE 1 GM TAB PO SCH ×4 (08:32→20:54)
[2021-08-22] MEDS: ASPIRIN ENTERIC 325 MG TAB PO SCH (08:32)
[2021-08-22] MEDS: METOPROLOL SUCC (TopROL XL) 50MG **XL** TAB PO SCH ×2 (08:33→20:54)
[2021-08-22] MEDS: dexameTHASONE 4 MG/ML 1ML VIAL (J1100 PER 1MG) IV SCH (08:33)
[2021-08-22] MEDS: VITAMIN D 1,000 INTERNATIONAL UNITS TABLET PO SCH (08:33)
[2021-08-22] MEDS: GABAPENTIN 100 MG CAP PO SCH ×3 (08:33→20:52)
[2021-08-22] MEDS: HumaLOG INSULIN (NovoLOG) PER UNIT SC SCH ×4 (08:34→20:52)
[2021-08-22] MEDS: POTASSIUM CHLORIDE 10MEQ SR TABLET PO SCH ×2 (08:34→20:53)
[2021-08-22 08:39] LABS: HEMATOCRIT 34.7 % (36.0-47.0); MEAN CORPUSCULAR HEMOGLOBIN 29.4 pg (27.0-33.0); MEAN CORPUSCULAR HGB CONC 31.7 g/dl (32.0-36.5); MEAN CORPUSCULAR VOLUME 92.8 fl (80.0-96.0); PLATELET COUNT, AUTOMATED 244 10^3/uL (150-450); RED BLOOD COUNT 3.74 10^6/uL (4.00-5.40)
[2021-08-22 09:07] LABS: ALBUMIN 2.9 GM/DL (3.2-5.2); BILIRUBIN,DIRECT 0.3 MG/DL (0.0-0.2); BILIRUBIN,TOTAL 0.5 MG/DL (0.2-1.0); TOTAL PROTEIN 6.3 GM/DL (6.4-8.2)
[2021-08-22 09:31] LABS: INR 1.2; PARTIAL THROMBOPLASTIN TIME 36.4 SECONDS (25.9-37.0); PROTHROMBIN TIME 15.6 SECONDS (12.7-14.5)
[2021-08-22 10:48] LABS: CALCIUM LEVEL 8.5 MG/DL (8.8-10.2); CREATININE FOR GFR 1.86 MG/DL (0.55-1.30); GLOMERULAR FILTRATION RATE 27.5 (>32); POTASSIUM SERUM 4.2 MEQ/L (3.5-5.1)
[2021-08-22] MEDS: DOXYCYCLINE HYCLATE 100MG TABLET PO SCH ×2 (12:17→20:53)
[2021-08-22 14:00] VITALS: BP 103/51
[2021-08-22] MEDS: CEFDINIR 300 MG CAP (OMNICEF) PO SCH (14:26)
[2021-08-22] MEDS: TORSEMIDE 100 MG TAB PO SCH (16:59)
[2021-08-22 20:00] VITALS: BP 130/60
[2021-08-22] MEDS: LEVEMIR (INSULIN DETEMIR) 1 UNITS/0.01ML SC SCH (20:51)
[2021-08-22] MEDS: LACTIC ACID 12% LOTION 225 GM BTL TOP SCH (20:55)
[2021-08-23 04:00] VITALS: BP 136/64
[2021-08-23] MEDS: LEVOTHYROXINE 75MCG TABLET (0.075MG) PO SCH (05:34)
[2021-08-23] MEDS: HEPARIN SOD (PORCINE) 5000UNITS/ML 1ML VIAL/SYRINGE SQ SCH ×2 (05:34→14:00)
[2021-08-23 07:22] LABS: ALBUMIN 2.8 GM/DL (3.2-5.2); CALCIUM LEVEL 8.6 MG/DL (8.8-10.2); CREATININE FOR GFR 1.8 MG/DL (0.55-1.30); GLOMERULAR FILTRATION RATE 28.5 (>32); PHOSPHORUS LEVEL 3.2 MG/DL (2.5-4.9); POTASSIUM SERUM 4.6 MEQ/L (3.5-5.1)
[2021-08-23] MEDS: OMEPRAZOLE 20 MG CAP PO SCH (08:59)
[2021-08-23] MEDS: GABAPENTIN 100 MG CAP PO SCH (08:59)
[2021-08-23] MEDS: CALCIUM/VITAMIN D 500 MG TAB PO SCH (09:00)
[2021-08-23] MEDS: SUCRALFATE 1 GM TAB PO SCH ×2 (09:00→12:18)
[2021-08-23] MEDS: CEFDINIR 300 MG CAP (OMNICEF) PO SCH (09:00)
[2021-08-23] MEDS: DOXYCYCLINE HYCLATE 100MG TABLET PO SCH (09:00)
[2021-08-23] MEDS: allopurinoL 300 MG TAB PO SCH (09:00)
[2021-08-23] MEDS: FERROUS SULFATE 325MG TAB PO SCH (09:00)
[2021-08-23] MEDS: TORSEMIDE 100 MG TAB PO SCH (09:00)
[2021-08-23] MEDS: ASPIRIN ENTERIC 325 MG TAB PO SCH (09:01)
[2021-08-23] MEDS: HumaLOG INSULIN (NovoLOG) PER UNIT SC SCH ×2 (09:01→12:19)
[2021-08-23] MEDS: POTASSIUM CHLORIDE 10MEQ SR TABLET PO SCH (09:01)
[2021-08-23] MEDS: LORATADINE 10 MG TAB PO SCH (09:01)
[2021-08-23] MEDS: VITAMIN D 1,000 INTERNATIONAL UNITS TABLET PO SCH (09:01)
[2021-08-23 09:02] VITALS: BP 120/58
[2021-08-23] MEDS: METOPROLOL SUCC (TopROL XL) 50MG **XL** TAB PO SCH (09:02)
[2021-08-23] MEDS ORDERED: DOXY100T PO (11:36)
[2021-08-23] MEDS ORDERED: CEFD300CAP PO (11:36)
[2021-08-23] MEDS ORDERED: TORS100T PO (11:36)
== END 2021-08-23 14:34 | disposition home health service (06) | DRG 177 ==
LOC: M ED 15:06 → EDBD 15:06 → M ED INP 19:39 → ENRESERV 22:03 → M 4MAIN 22:56
PROVIDERS: ADMIT Family Medicine; ATTEND Family Medicine
PROC: 3E0333Z Introduction of Anti-inflammatory into Peripheral Vein, Percutaneous Approach (ICD-10-PCS; 2021-08-16)
PROC: XW033E5 Introduction of Remdesivir Anti-infective into Peripheral Vein, Percutaneous Approach, New Technology Group 5 (ICD-10-PCS; 2021-08-17)
PROC: 0W9G3ZX Drainage of Peritoneal Cavity, Percutaneous Approach, Diagnostic (ICD-10-PCS; principal; 2021-08-17 15:00)
DX: U07.1 COVID-19 (principal); I50.33 Acute on chronic diastolic (congestive) heart failure; N18.4 Chronic kidney disease, stage 4 (severe); I13.0 Hypertensive heart and chronic kidney disease with heart failure and stage 1 through stage 4 chronic kidney disease, or unspecified chronic kidney disease; N17.9 Acute kidney failure, unspecified; R18.8 Other ascites; E87.5 Hyperkalemia; E03.9 Hypothyroidism, unspecified; E11.22 Type 2 diabetes mellitus with diabetic chronic kidney disease; K27.9 Peptic ulcer, site unspecified, unspecified as acute or chronic, without hemorrhage or perforation; E11.43 Type 2 diabetes mellitus with diabetic autonomic (poly)neuropathy; M10.9 Gout, unspecified; I48.91 Unspecified atrial fibrillation; Z79.82 Long term (current) use of aspirin; D63.1 Anemia in chronic kidney disease; E78.5 Hyperlipidemia, unspecified; Z95.0 Presence of cardiac pacemaker; Z90.79 Acquired absence of other genital organ(s); Z96.653 Presence of artificial knee joint, bilateral; Z90.49 Acquired absence of other specified parts of digestive tract; Z87.891 Personal history of nicotine dependence; R26.89 Other abnormalities of gait and mobility; Z66 Do not resuscitate; Z79.84 Long term (current) use of oral hypoglycemic drugs; Z79.899 Other long term (current) drug therapy; Z88.5 Allergy status to narcotic agent; Z91.040 Latex allergy status; K74.60 Unspecified cirrhosis of liver; R09.02 Hypoxemia

== ENCOUNTER 2021-08-29 13:31 | Emergency (ER) | payer MEDICARE, OTHER ==
[~2021-08-29] VITALS: Ht 149.9 cm; Wt 88.2 kg
[~2021-08-29 13:31] MED LIST changes: +CEFD300CAP PO; +DOXY100T PO
[2021-08-30] MEDS ORDERED: NS 1,000 ML IV ONE (03:00)
[2021-08-30] MEDS ORDERED: OXYMETAZOLINE 0.05% NASAL SPRAY (AFRIN) ONE (03:40)
[2021-08-30 03:45] LABS: BASO % 0.4 % (0.0-1.0); EOS # 0.1 10^3/uL (0.0-0.5); EOS % 1.4 % (0.0-3.0); HEMATOCRIT 32.1 % (36.0-47.0); HEMOGLOBIN 9.8 g/dl (12.0-15.5); LYMPH # 0.7 10^3/uL (1.5-5.0); LYMPH % 10.2 % (24.0-44.0); MEAN CORPUSCULAR HEMOGLOBIN 29.3 pg (27.0-33.0); MEAN CORPUSCULAR HGB CONC 30.5 g/dl (32.0-36.5); MEAN CORPUSCULAR VOLUME 96.1 fl (80.0-96.0); MONO % 14.4 % (2.0-8.0); NEUTROPHILS % 71.7 % (36.0-66.0); PLATELET COUNT, AUTOMATED 149 10^3/uL (150-450); RED BLOOD COUNT 3.34 10^6/uL (4.00-5.40)
[2021-08-30 03:56] LABS: INR 1.18; PROTHROMBIN TIME 15.4 SECONDS (12.7-14.5)
[2021-08-30 04:09] LABS: ALBUMIN 2.7 GM/DL (3.2-5.2); BILIRUBIN,DIRECT 0.4 MG/DL (0.0-0.2); BILIRUBIN,TOTAL 0.7 MG/DL (0.2-1.0); CALCIUM LEVEL 8.5 MG/DL (8.8-10.2); CREATININE FOR GFR 2.19 MG/DL (0.55-1.30); GLOMERULAR FILTRATION RATE 22.8 (>32); POTASSIUM SERUM 3.8 MEQ/L (3.5-5.1); TOTAL PROTEIN 5.7 GM/DL (6.4-8.2)
[2021-08-30 04:10] LABS: CK-MB VALUE MASS < 1.0 NG/ML (<3.6); CPK CREATINE PHOSPHOKINASE 35 U/L (26-192); MB/CK RELATIVE INDEX 2.86 (< OR =4)
[2021-08-30 05:10] LABS: CK-MB VALUE MASS 1.1 NG/ML (<3.6); MB/CK RELATIVE INDEX 3.06 (< OR =4)
[2021-08-30 07:24] VITALS: BP 124/74
== END 2021-08-30 12:10 | disposition home or self-care (01) ==
LOC: M ED 13:31
DX: R04.0 Epistaxis (principal); I11.0 Hypertensive heart disease with heart failure; I50.9 Heart failure, unspecified; I48.91 Unspecified atrial fibrillation; I25.10 Atherosclerotic heart disease of native coronary artery without angina pectoris; E03.9 Hypothyroidism, unspecified; K21.9 Gastro-esophageal reflux disease without esophagitis; Z88.5 Allergy status to narcotic agent; Z91.040 Latex allergy status; J30.89 Other allergic rhinitis; Z79.899 Other long term (current) drug therapy; Z79.82 Long term (current) use of aspirin; Z79.890 Hormone replacement therapy

== ENCOUNTER → 2021-08-31 | Outpatient (CLI) | payer MEDICARE, OTHER ==
[2021-08-31 14:45] VITALS: BP 109/62
== END ==
LOC: M IRPRO 14:00
PROVIDERS: ATTEND Internal Medicine Nephrology
DX: K74.69 Other cirrhosis of liver (principal)

== ENCOUNTER 2021-09-12 12:22 | Inpatient (IN) | payer MEDICARE, OTHER ==
[~2021-09-12] VITALS: Ht 160 cm; Wt 81.8 kg
[~2021-09-12 12:22] MED LIST changes: +BARICITINIB 2MG TABLET (OLUMIANT) FOR EUA PO SCH
[2021-09-12 13:22] LABS: BASO # 0.1 10^3/uL (0.0-0.2); BASO % 1.1 % (0.0-1.0); EOS # 0.1 10^3/uL (0.0-0.5); EOS % 0.9 % (0.0-3.0); HEMATOCRIT 30.6 % (36.0-47.0); HEMOGLOBIN 9.6 g/dl (12.0-15.5); LYMPH % 18.4 % (24.0-44.0); MEAN CORPUSCULAR HEMOGLOBIN 29.8 pg (27.0-33.0); MEAN CORPUSCULAR HGB CONC 31.4 g/dl (32.0-36.5); MONO # 0.7 10^3/uL (0.0-0.8); NEUTROPHILS # 3.6 10^3/uL (1.5-8.5); NEUTROPHILS % 63.2 % (36.0-66.0); PLATELET COUNT, AUTOMATED 307 10^3/uL (150-450); RED BLOOD COUNT 3.22 10^6/uL (4.00-5.40); WHITE BLOOD COUNT 5.7 10^3/uL (4.0-10.0)
[2021-09-12 13:59] LABS: ALBUMIN 2.3 GM/DL (3.2-5.2); BILIRUBIN,DIRECT 0.2 MG/DL (0.0-0.2); BILIRUBIN,TOTAL 0.5 MG/DL (0.2-1.0); CALCIUM LEVEL 8.8 MG/DL (8.8-10.2); CREATININE FOR GFR 2.56 MG/DL (0.55-1.30); THYROID STIMULATING HORMONE 5.31 uIU/ML (0.358-3.740); TOTAL PROTEIN 5.4 GM/DL (6.4-8.2)
[2021-09-12] MEDS ORDERED: NS 1,000 ML IV SCH (14:35)
[2021-09-12] MEDS: NS 1,000 ML IV SCH (15:06)
[2021-09-12] MEDS ORDERED: TORS100T PO (16:39)
[2021-09-12] MEDS ORDERED: SPIR-10 PO (16:39)
[2021-09-12] MEDS ORDERED: METO1TAB32 PO (16:39)
[2021-09-12] MEDS ORDERED: HOME MED LIST COMPLETE! XX SCH (16:40)
[2021-09-12] MEDS ORDERED: PILL CUTTER 1 EACH XX PRN (18:20)
[2021-09-12] MEDS ORDERED: FLUTICASONE PROP 0.05% NASAL SPRAY 16 GM (FLONASE) NARES PRN (18:50)
[2021-09-12 19:05] LABS: INR 1.19; PROTHROMBIN TIME 15.5 SECONDS (12.7-14.5)
[2021-09-12 19:06] LABS: PARTIAL THROMBOPLASTIN TIME 28.6 SECONDS (25.9-37.0)
[2021-09-12 19:22] LABS: D-DIMER QUANT 3918.34 ng/ml (<500)
[2021-09-12 19:28] LABS: C REACTIVE PROTEIN QUANTITATIV 3.72 MG/DL (0.00-0.30)
[2021-09-12] MEDS: dexameTHASONE 4 MG/ML 1ML VIAL (J1100 PER 1MG) IV SCH (19:34)
[2021-09-12] MEDS: VANCOMYCIN ORAL SOL 250MG/5ML ORAL SYRINGE PO SCH (19:34)
[2021-09-12] MEDS: FERROUS SULFATE 325MG TAB PO SCH (21:09)
[2021-09-12] MEDS: SUCRALFATE 1 GM TAB PO SCH (21:09)
[2021-09-12 22:30] VITALS: BP 91/42
[2021-09-13] VITALS (7 sets, daily range): BP systolic 97–127; BP diastolic 53–73; O2SAT 90–97
[2021-09-13] MEDS: VANCOMYCIN ORAL SOL 250MG/5ML ORAL SYRINGE PO SCH ×4 (00:10→18:11)
[2021-09-13] MEDS: LACTIC ACID 12% LOTION 225 GM BTL TOP SCH ×2 (00:10→22:09)
[2021-09-13] MEDS ORDERED: SODIUM CHLORIDE 0.9% 1000ML IV ONE (01:45)
[2021-09-13] MEDS ORDERED: NS 500 ML IV ONE (03:45)
[2021-09-13] MEDS ORDERED: REMDESIVIR 200 MG in NS 250 ML IV ONE (04:00)
[2021-09-13] MEDS ORDERED: SODIUM CHLORIDE 0.9% INJ 10 ML SYR IV ONE (06:00)
[2021-09-13 06:35] LABS: HEMATOCRIT 30.1 % (36.0-47.0); HEMOGLOBIN 9.1 g/dl (12.0-15.5); MEAN CORPUSCULAR HEMOGLOBIN 29.3 pg (27.0-33.0); MEAN CORPUSCULAR HGB CONC 30.2 g/dl (32.0-36.5); MEAN CORPUSCULAR VOLUME 96.8 fl (80.0-96.0); PLATELET COUNT, AUTOMATED 286 10^3/uL (150-450); RED BLOOD COUNT 3.11 10^6/uL (4.00-5.40); WHITE BLOOD COUNT 3.5 10^3/uL (4.0-10.0)
[2021-09-13 06:48] LABS: CALCIUM LEVEL 8.1 MG/DL (8.8-10.2); CREATININE FOR GFR 2.24 MG/DL (0.55-1.30); GLOMERULAR FILTRATION RATE 22.2 (>32); POTASSIUM SERUM 4.8 MEQ/L (3.5-5.1)
[2021-09-13] MEDS: LEVOTHYROXINE 75MCG TABLET (0.075MG) PO SCH (06:49)
[2021-09-13 07:31] LABS: ANISOCYTOSIS 1+; LYMPHOCYTES 19 % (16-44); METAMYELOCYTES 2 % (0-0); NEUTROPHILS 79 % (28-66); PLATELET ESTIMATE NORMAL (NORMAL)
[2021-09-13] MEDS ORDERED: VITAMIN D 1,000 INTERNATIONAL UNITS TABLET PO SCH (09:00)
[2021-09-13] MEDS: ENOXAPARIN 30MG/0.3ML SYRINGE (J1650 PER 10MG) SC SCH (09:23)
[2021-09-13] MEDS: dexameTHASONE 4 MG/ML 1ML VIAL (J1100 PER 1MG) IV SCH (09:23)
[2021-09-13] MEDS: FERROUS SULFATE 325MG TAB PO SCH ×2 (09:24→22:09)
[2021-09-13] MEDS: OMEPRAZOLE 20MG CAP PO SCH (09:24)
[2021-09-13] MEDS: LORATADINE 10 MG TAB PO SCH (09:25)
[2021-09-13] MEDS: allopurinoL 300 MG TAB PO SCH (09:25)
[2021-09-13] MEDS: SUCRALFATE 1 GM TAB PO SCH ×4 (09:25→22:10)
[2021-09-13] MEDS: NS 1,000 ML IV SCH (13:36)
[2021-09-13 17:36] LABS: MAGNESIUM LEVEL 1.8 MG/DL (1.7-2.2)
[2021-09-14] VITALS: O2SAT 95
[2021-09-14] MEDS: VANCOMYCIN ORAL SOL 250MG/5ML ORAL SYRINGE PO SCH ×5 (00:35→23:40)
[2021-09-14 04:00] VITALS: O2SAT 94
[2021-09-14 06:00] VITALS: BP 121/71
[2021-09-14] MEDS ORDERED: REMDESIVIR 100 MG in NS 250 ML IV SCH (06:00)
[2021-09-14] MEDS: LEVOTHYROXINE 75MCG TABLET (0.075MG) PO SCH (06:09)
[2021-09-14 06:15] LABS: BASO % 0.2 % (0.0-1.0); HEMOGLOBIN 9.1 g/dl (12.0-15.5); LYMPH # 0.8 10^3/uL (1.5-5.0); LYMPH % 12.6 % (24.0-44.0); MEAN CORPUSCULAR HEMOGLOBIN 29.8 pg (27.0-33.0); MEAN CORPUSCULAR HGB CONC 31.4 g/dl (32.0-36.5); MEAN CORPUSCULAR VOLUME 95.1 fl (80.0-96.0); MONO # 0.5 10^3/uL (0.0-0.8); MONO % 8.4 % (2.0-8.0); NEUTROPHILS # 4.5 10^3/uL (1.5-8.5); NEUTROPHILS % 75.1 % (36.0-66.0); PLATELET COUNT, AUTOMATED 267 10^3/uL (150-450); RED BLOOD COUNT 3.05 10^6/uL (4.00-5.40)
[2021-09-14 06:32] LABS: CALCIUM LEVEL 7.8 MG/DL (8.8-10.2); CREATININE FOR GFR 2.13 MG/DL (0.55-1.30); GLOMERULAR FILTRATION RATE 23.5 (>32); POTASSIUM SERUM 4.4 MEQ/L (3.5-5.1)
[2021-09-14] MEDS ORDERED: SODIUM CHLORIDE 0.9% INJ 10 ML SYR IV SCH (07:00)
[2021-09-14] MEDS: OMEPRAZOLE 20MG CAP PO SCH (08:17)
[2021-09-14] MEDS: LORATADINE 10 MG TAB PO SCH (08:17)
[2021-09-14] MEDS: ENOXAPARIN 30MG/0.3ML SYRINGE (J1650 PER 10MG) SC SCH ×2 (08:17→09:00)
[2021-09-14] MEDS: FERROUS SULFATE 325MG TAB PO SCH ×2 (08:17→21:14)
[2021-09-14] MEDS: allopurinoL 300 MG TAB PO SCH (08:17)
[2021-09-14] MEDS: SUCRALFATE 1 GM TAB PO SCH ×4 (08:18→21:14)
[2021-09-14 16:00] VITALS: BP 122/70
[2021-09-14 17:19] LABS: MAGNESIUM LEVEL 1.9 MG/DL (1.7-2.2)
[2021-09-14] MEDS: TORSEMIDE 100 MG TAB PO SCH (18:19)
[2021-09-14] MEDS: LACTIC ACID 12% LOTION 225 GM BTL TOP SCH (21:14)
[2021-09-14 22:00] VITALS: BP 122/68
[2021-09-15] MEDS: VANCOMYCIN ORAL SOL 250MG/5ML ORAL SYRINGE PO SCH ×2 (05:44→12:15)
[2021-09-15] MEDS: LEVOTHYROXINE 75MCG TABLET (0.075MG) PO SCH (05:44)
[2021-09-15 06:00] VITALS: BP 143/63
[2021-09-15 06:30] LABS: HEMATOCRIT 31.4 % (36.0-47.0); HEMOGLOBIN 9.5 g/dl (12.0-15.5); MEAN CORPUSCULAR HGB CONC 30.3 g/dl (32.0-36.5); MEAN CORPUSCULAR VOLUME 99.1 fl (80.0-96.0); PLATELET COUNT, AUTOMATED 256 10^3/uL (150-450); RED BLOOD COUNT 3.17 10^6/uL (4.00-5.40)
[2021-09-15 06:41] LABS: CALCIUM LEVEL 7.5 MG/DL (8.8-10.2); CREATININE FOR GFR 1.87 MG/DL (0.55-1.30); GLOMERULAR FILTRATION RATE 27.3 (>32); POTASSIUM SERUM 4.3 MEQ/L (3.5-5.1)
[2021-09-15 06:52] LABS: ANISOCYTOSIS 1+; LYMPHOCYTES 12 % (16-44); METAMYELOCYTES 1 % (0-0); MONOCYTES 8 % (0-5); NEUTROPHILS 78 % (28-66); PLATELET ESTIMATE NORMAL (NORMAL)
[2021-09-15 06:53] LABS: POLYCHROMASIA 1+
[2021-09-15] MEDS ORDERED: SPIRONOLACTONE 25 MG TAB PO SCH (09:00)
[2021-09-15] MEDS: SUCRALFATE 1 GM TAB PO SCH ×2 (10:13→12:15)
[2021-09-15] MEDS: ENOXAPARIN 30MG/0.3ML SYRINGE (J1650 PER 10MG) SC SCH (10:14)
[2021-09-15] MEDS: OMEPRAZOLE 20MG CAP PO SCH (10:15)
[2021-09-15] MEDS: allopurinoL 300 MG TAB PO SCH (10:15)
[2021-09-15] MEDS: LORATADINE 10 MG TAB PO SCH (10:15)
[2021-09-15] MEDS: FERROUS SULFATE 325MG TAB PO SCH (10:15)
[2021-09-15] MEDS: TORSEMIDE 100 MG TAB PO SCH (10:15)
[2021-09-15] MEDS ORDERED: VANC250C3 PO (11:35)
== END 2021-09-15 15:08 | disposition home health service (06) | DRG 372 ==
LOC: M ED 12:22 → M ED INP 14:49 → ENRESERV 20:17 → M MSPAV 22:30
PROVIDERS: ADMIT General Practice; ATTEND Internal Medicine Nephrology
PROC: 0W9G3ZZ Drainage of Peritoneal Cavity, Percutaneous Approach (ICD-10-PCS; principal; 2021-09-14 11:00)
DX: A04.72 Enterocolitis due to Clostridium difficile, not specified as recurrent (principal); N18.4 Chronic kidney disease, stage 4 (severe); I48.20 Chronic atrial fibrillation, unspecified; I50.32 Chronic diastolic (congestive) heart failure; R18.8 Other ascites; N17.9 Acute kidney failure, unspecified; I13.0 Hypertensive heart and chronic kidney disease with heart failure and stage 1 through stage 4 chronic kidney disease, or unspecified chronic kidney disease; K74.60 Unspecified cirrhosis of liver; Z87.11 Personal history of peptic ulcer disease; E03.9 Hypothyroidism, unspecified; D63.1 Anemia in chronic kidney disease; Z66 Do not resuscitate; D50.9 Iron deficiency anemia, unspecified; E86.0 Dehydration; M06.9 Rheumatoid arthritis, unspecified; M10.9 Gout, unspecified; G62.9 Polyneuropathy, unspecified; Z85.828 Personal history of other malignant neoplasm of skin; Z90.49 Acquired absence of other specified parts of digestive tract; Z95.0 Presence of cardiac pacemaker; Z96.653 Presence of artificial knee joint, bilateral; Z88.5 Allergy status to narcotic agent; Z91.040 Latex allergy status; Z79.82 Long term (current) use of aspirin; Z79.899 Other long term (current) drug therapy

== ENCOUNTER → 2021-09-23 | Outpatient (REF) | payer MEDICARE, OTHER ==
[~2021-09-23] MED LIST changes: -BARICITINIB 2MG TABLET (OLUMIANT) FOR EUA PO SCH; +COMMENTS; +VANC250C3 PO
== END ==
LOC: M LAB REF 14:47
PROVIDERS: ATTEND Internal Medicine Medical Oncology
DX: D50.9 Iron deficiency anemia, unspecified (principal); D63.1 Anemia in chronic kidney disease; N18.4 Chronic kidney disease, stage 4 (severe)

== ENCOUNTER → 2021-09-26 | Outpatient (CLI) | payer MEDICARE, OTHER ==
[2021-09-26 14:17] VITALS: BP 93/54
== END ==
LOC: M IRPRO 13:03
PROVIDERS: ATTEND Internal Medicine Nephrology
DX: K74.69 Other cirrhosis of liver (principal)

== ENCOUNTER 2021-09-30 23:04 | Inpatient (IN) | payer MEDICARE, OTHER ==
[~2021-09-30] VITALS: Ht 149.9 cm; Wt 92.9 kg
[~2021-09-30 23:04] MED LIST changes: -COMMENTS; -D31000TA2 PO; +VITA100093 PO
[2021-09-30 23:41] LABS: ABG BASE EXCESS -4.6 (-2.0-2.0); ABG HCO3 18.7 MEQ/L (22.0-26.0); ABG O2 SATURATION 97.7 % (95.0-99.0); ABG PARTIAL PRESSURE CO2 27.7 mmHg (35.0-45.0); ABG STANDARD HCO3 20.6 MEQ/L (22.0-26.0); ABG TOTAL CO2 19.5 MEQ/L (23.0-31.0); ABG pH (ARTERIAL) 7.447 UNITS (7.350-7.450)
[2021-09-30 23:52] LABS: BASO % 0.2 % (0.0-1.0); EOS % 0.1 % (0.0-3.0); HEMATOCRIT 25.5 % (36.0-47.0); LYMPH # 0.6 10^3/uL (1.5-5.0); LYMPH % 3.3 % (24.0-44.0); MEAN CORPUSCULAR HEMOGLOBIN 30.7 pg (27.0-33.0); MEAN CORPUSCULAR HGB CONC 31.4 g/dl (32.0-36.5); MEAN CORPUSCULAR VOLUME 97.7 fl (80.0-96.0); MONO # 0.9 10^3/uL (0.0-0.8); NEUTROPHILS # 15.6 10^3/uL (1.5-8.5); NEUTROPHILS % 90.4 % (36.0-66.0); PLATELET COUNT, AUTOMATED 246 10^3/uL (150-450); RED BLOOD COUNT 2.61 10^6/uL (4.00-5.40); WHITE BLOOD COUNT 17.2 10^3/uL (4.0-10.0)
[2021-10-01] VITALS (46 sets, daily range): BP systolic 85–137; BP diastolic 51–75
[2021-10-01 00:03] LABS: INR 1.23; PARTIAL THROMBOPLASTIN TIME 36.5 SECONDS (25.9-37.0); PROTHROMBIN TIME 15.9 SECONDS (12.7-14.5)
[2021-10-01 00:24] LABS: BILIRUBIN,DIRECT 0.3 MG/DL (0.0-0.2); BILIRUBIN,TOTAL 0.4 MG/DL (0.2-1.0); C REACTIVE PROTEIN QUANTITATIV 2.7 MG/DL (0.00-0.30); CALCIUM LEVEL 7.7 MG/DL (8.8-10.2); CK-MB VALUE MASS 2.6 NG/ML (<3.6); CREATININE FOR GFR 3.48 MG/DL (0.55-1.30); GLOMERULAR FILTRATION RATE 13.3 (>32); MB/CK RELATIVE INDEX 1.82 (< OR =4); TOTAL PROTEIN 4.8 GM/DL (6.4-8.2)
[2021-10-01 00:29] LABS: RSV AMPLIFICATION NEGATIVE (NEGATIVE)
[2021-10-01] MEDS ORDERED: NS 500 ML IV ONE (00:40)
[2021-10-01] MEDS ORDERED: ACETAMINOPHEN TAB 650MG DOSE (2X325MG) PO ONE (01:15)
[2021-10-01] MEDS ORDERED: CALCIUM GLUCONATE 1,000 MG in D5W MINI-BAG PLUS 100 ML IV ONE (01:20)
[2021-10-01] MEDS ORDERED: NS 1,000 ML IV ONE ×3 (01:20)
[2021-10-01 01:21] LABS: APPEARANCE, URINE MANUAL HAZY (CLEAR); COLOR, URINE MANUAL YELLOW (YELLOW)
[2021-10-01 01:22] LABS: GLUCOSE, URINE (UA) MANUAL NEGATIVE (NEGATIVE); PROTEIN, URINE MANUAL TRACE mg/dL (NEGATIVE); SPECIFIC GRAVITY,URINE MANUAL 1.015 (1.002-1.035)
[2021-10-01 01:23] LABS: BILIRUBIN, URINE MANUAL NEGATIVE (NEGATIVE); BLOOD URINE MANUAL POSITIVE (NEGATIVE); KETONE, URINE MANUAL NEGATIVE (NEGATIVE); LEUKOCYTE ESTERASE, URINE MAN POSITIVE (NEGATIVE); NITRITE, URINE MANUAL NEGATIVE (NEGATIVE); UROBILINOGEN, URINE MANUAL NORMAL (NORMAL)
[2021-10-01] MEDS ORDERED: CEFEPIME HCL 1 GM in D5W MINI-BAG PLUS 50 ML IV ONE (01:30)
[2021-10-01] MEDS ORDERED: VANCOMYCIN HCL 1,000 MG in IV FLUID PLACE HOLDER 1 EA IV ONE (01:30)
[2021-10-01] MEDS ORDERED: MIDODRINE 5 MG TAB PO ONE (01:35)
[2021-10-01] MEDS ORDERED: SOD POLYSTYRENE SULFONATE SUSP 15 GM/60 ML UD PO ONE (01:35)
[2021-10-01 01:48] LABS: WBC, URINE TNTC /hpf (0-3)
[2021-10-01 01:49] LABS: BACTERIA, URINE SMALL AMOUNT; HYALINE CAST, URINE NONE SEEN /lpf (0-1); SQUAMOUS EPITHELIAL CELL URINE NONE SEEN /hpf (SMALL AMT); TRANSITIONAL EPI CELLS, URINE SMALL AMOUNT /hpf
[2021-10-01] MEDS ORDERED: VANCOMYCIN HCL 1,000 MG, VIAL MATE ADAPTER 1 EACH in NS 250 ML IV ONE (03:00)
[2021-10-01] MEDS ORDERED: GLUCOSE 4GM CHEW TABLET PO PRN (04:50)
[2021-10-01] MEDS ORDERED: GLUCAGON INJ 1MG VIAL SC PRN (04:50)
[2021-10-01] MEDS ORDERED: DEXTROSE 50% 50 ML SYRINGE IV PRN (04:50)
[2021-10-01] MEDS ORDERED: HYDROCORTISONE 100 MG/2 ML VIAL (J1720 PER 1) IV ONE (05:00)
[2021-10-01] MEDS ORDERED: NOREPINEPHRINE BITARTRATE 8 MG in D5W 492 ML IV SCH (05:20)
[2021-10-01] MEDS ORDERED: NS 1,000 ML IV SCH (05:25)
[2021-10-01] MEDS: NOREPINEPHRINE BITARTRATE 8 MG in D5W 492 ML IV SCH ×2 (05:54→23:18)
[2021-10-01 07:00] LABS: BASO # 0.1 10^3/uL (0.0-0.2); BASO % 0.3 % (0.0-1.0); EOS % 0.1 % (0.0-3.0); HEMATOCRIT 25.9 % (36.0-47.0); HEMOGLOBIN 7.8 g/dl (12.0-15.5); LYMPH # 1.5 10^3/uL (1.5-5.0); LYMPH % 8.8 % (24.0-44.0); MEAN CORPUSCULAR HGB CONC 30.1 g/dl (32.0-36.5); MEAN CORPUSCULAR VOLUME 99.6 fl (80.0-96.0); MONO # 1.1 10^3/uL (0.0-0.8); MONO % 6.2 % (2.0-8.0); NEUTROPHILS # 14.5 10^3/uL (1.5-8.5); NEUTROPHILS % 83.3 % (36.0-66.0); PLATELET COUNT, AUTOMATED 286 10^3/uL (150-450); WHITE BLOOD COUNT 17.4 10^3/uL (4.0-10.0)
[2021-10-01] MEDS ORDERED: OMEP-173 PO (07:22)
[2021-10-01 07:29] LABS: CALCIUM LEVEL 7.6 MG/DL (8.8-10.2); CREATININE FOR GFR 3.37 MG/DL (0.55-1.30); GLOMERULAR FILTRATION RATE 13.8 (>32); POTASSIUM SERUM 5.3 MEQ/L (3.5-5.1)
[2021-10-01] MEDS: HumaLOG INSULIN (NovoLOG) PER UNIT SC SCH ×2 (07:30→12:49)
[2021-10-01] MEDS: CHLORHEXIDINE GLUCONATE 0.12 % 15ML UDC (PERIDEX ORAL RINSE) MT SCH ×2 (09:34→21:12)
[2021-10-01] MEDS: PANTOPRAZOLE 40MG VIAL (C9113 PER 1) IV SCH ×2 (09:34→21:12)
[2021-10-01] MEDS ORDERED: VANCOMYCIN HCL 1,000 MG, VIAL MATE ADAPTER 1 EACH in NS 250 ML IV SCH (10:45)
[2021-10-01] MEDS ORDERED: PIPERACILLIN/TAZOBACTAM SOD 3.375 GM in D5W MINI-BAG PLUS 50 ML IV SCH (10:45)
[2021-10-01] MEDS: NS 1,000 ML IV SCH ×2 (10:45→21:13)
[2021-10-01] MEDS ORDERED: VANCOMYCIN INTERMITTENT/PULSE DOSING BY CLINICAL PHARMACIST PER DOSING PROTOCOL XX SCH (11:05)
[2021-10-01] MEDS ORDERED: NS 2,000 ML IV ONE (12:00)
[2021-10-01] MEDS: PIPERACILLIN/TAZOBACTAM SOD 4.5 GM in D5W MINI-BAG PLUS 50 ML IV SCH ×2 (12:00→23:19)
[2021-10-01] MEDS ORDERED: SPIR-10 PO (12:04)
[2021-10-01] MEDS ORDERED: TORS100T PO (12:04)
[2021-10-01] MEDS ORDERED: COMMENTS (12:06)
[2021-10-01] MEDS ORDERED: HOME MED LIST COMPLETE! XX SCH (12:10)
[2021-10-01] MEDS ORDERED: CEFEPIME HCL 1 GM in D5W MINI-BAG PLUS 50 ML IV SCH (14:00)
[2021-10-01 14:35] LABS: CALCIUM LEVEL 7.3 MG/DL (8.8-10.2); CREATININE FOR GFR 3.11 MG/DL (0.55-1.30); GLOMERULAR FILTRATION RATE 15.2 (>32)
[2021-10-01 14:57] LABS: CLOSTRIDIUM DIFFICILE PCR NEGATIVE (NEGATIVE)
[2021-10-01] MEDS: SUCRALFATE 1 GM TAB PO SCH ×2 (17:30→21:13)
[2021-10-01 18:27] LABS: HEMATOCRIT 24.9 % (36.0-47.0); HEMOGLOBIN 7.9 g/dl (12.0-15.5)
[2021-10-01] MEDS ORDERED: HumaLOG INSULIN (NovoLOG) PER UNIT SC SCH (21:00)
[2021-10-01] MEDS: HEPARIN SOD (PORCINE) 5000UNITS/ML 1ML VIAL/SYRINGE SQ SCH (21:14)
[2021-10-02] VITALS (72 sets, daily range): BP systolic 78–131; BP diastolic 45–80
[2021-10-02 05:16] LABS: BASO % 0.2 % (0.0-1.0); EOS % 0.5 % (0.0-3.0); HEMATOCRIT 24.8 % (36.0-47.0); HEMOGLOBIN 7.6 g/dl (12.0-15.5); MEAN CORPUSCULAR HEMOGLOBIN 29.8 pg (27.0-33.0); MEAN CORPUSCULAR HGB CONC 30.6 g/dl (32.0-36.5); MEAN CORPUSCULAR VOLUME 97.3 fl (80.0-96.0); MONO # 0.9 10^3/uL (0.0-0.8); MONO % 9.8 % (2.0-8.0); NEUTROPHILS # 6.9 10^3/uL (1.5-8.5); NEUTROPHILS % 77.5 % (36.0-66.0); PLATELET COUNT, AUTOMATED 267 10^3/uL (150-450); RED BLOOD COUNT 2.55 10^6/uL (4.00-5.40); WHITE BLOOD COUNT 8.8 10^3/uL (4.0-10.0)
[2021-10-02 05:22] LABS: INR 1.25; PROTHROMBIN TIME 16.1 SECONDS (12.7-14.5)
[2021-10-02 05:43] LABS: ALBUMIN 1.9 GM/DL (3.2-5.2); BILIRUBIN,DIRECT 0.2 MG/DL (0.0-0.2); BILIRUBIN,TOTAL 0.4 MG/DL (0.2-1.0); MAGNESIUM LEVEL 2.1 MG/DL (1.8-2.4); TOTAL PROTEIN 4.9 GM/DL (6.4-8.2); VANCOMYCIN RANDOM 9.6 UG/ML
[2021-10-02] MEDS ORDERED: LEVOTHYROXINE 75MCG TABLET (0.075MG) PO SCH (06:00)
[2021-10-02] MEDS: NS 1,000 ML IV SCH (06:46)
[2021-10-02] MEDS ORDERED: VANCOMYCIN HCL 1,000 MG, VIAL MATE ADAPTER 1 EACH in NS 250 ML IV ONE (07:00)
[2021-10-02] MEDS: HumaLOG INSULIN (NovoLOG) PER UNIT SC SCH ×4 (07:30→21:00)
[2021-10-02] MEDS: SUCRALFATE 1 GM TAB PO SCH ×4 (07:30→21:00)
[2021-10-02 07:57] LABS: ALBUMIN 1.8 GM/DL (3.2-5.2); BILIRUBIN,TOTAL 0.4 MG/DL (0.2-1.0); CREATININE FOR GFR 2.94 MG/DL (0.55-1.30); GLOMERULAR FILTRATION RATE 16.2 (>32); POTASSIUM SERUM 4.4 MEQ/L (3.5-5.1); TOTAL PROTEIN 5.2 GM/DL (6.4-8.2)
[2021-10-02] MEDS: PANTOPRAZOLE 40MG VIAL (C9113 PER 1) IV SCH ×2 (08:12→22:11)
[2021-10-02] MEDS: CHLORHEXIDINE GLUCONATE 0.12 % 15ML UDC (PERIDEX ORAL RINSE) MT SCH ×2 (08:13→22:11)
[2021-10-02] MEDS ORDERED: ASPIRIN ENTERIC 325 MG TAB PO SCH (09:00)
[2021-10-02] MEDS ORDERED: ASPIRIN 300 MG SUPP PR SCH (09:00)
[2021-10-02] MEDS ORDERED: LORATADINE 10 MG TAB PO SCH (09:00)
[2021-10-02] MEDS ORDERED: LEVOTHYROXINE 100MCG (0.1MG) VIAL (POWDER FORM) IV SCH (09:00)
[2021-10-02] MEDS: ASPIRIN 325 MG TAB PO SCH (09:30)
[2021-10-02] MEDS: HEPARIN SOD (PORCINE) 5000UNITS/ML 1ML VIAL/SYRINGE SQ SCH ×2 (09:31→22:12)
[2021-10-02] MEDS: PIPERACILLIN/TAZOBACTAM SOD 4.5 GM in D5W MINI-BAG PLUS 50 ML IV SCH ×2 (11:52→23:43)
[2021-10-02] MEDS: MIDODRINE 5 MG TAB PO SCH ×2 (11:53→16:00)
[2021-10-02] MEDS ORDERED: LR 500 ML IV ONE (14:40)
[2021-10-03] VITALS (29 sets, daily range): BP systolic 92–137; BP diastolic 47–69
[2021-10-03] MEDS: LEVOTHYROXINE 75MCG TABLET (0.075MG) PO SCH (05:59)
[2021-10-03 06:17] LABS: BASO # 0.1 10^3/uL (0.0-0.2); BASO % 0.7 % (0.0-1.0); EOS # 0.3 10^3/uL (0.0-0.5); EOS % 3.4 % (0.0-3.0); HEMATOCRIT 23.6 % (36.0-47.0); HEMOGLOBIN 7.4 g/dl (12.0-15.5); LYMPH % 13.1 % (24.0-44.0); MEAN CORPUSCULAR HEMOGLOBIN 30.5 pg (27.0-33.0); MEAN CORPUSCULAR HGB CONC 31.4 g/dl (32.0-36.5); MEAN CORPUSCULAR VOLUME 97.1 fl (80.0-96.0); MONO # 0.7 10^3/uL (0.0-0.8); MONO % 9.1 % (2.0-8.0); NEUTROPHILS # 5.4 10^3/uL (1.5-8.5); NEUTROPHILS % 72.5 % (36.0-66.0); PLATELET COUNT, AUTOMATED 256 10^3/uL (150-450); RED BLOOD COUNT 2.43 10^6/uL (4.00-5.40); WHITE BLOOD COUNT 7.4 10^3/uL (4.0-10.0)
[2021-10-03 06:26] LABS: INR 1.22; PROTHROMBIN TIME 15.8 SECONDS (12.7-14.5)
[2021-10-03 06:45] LABS: ALBUMIN 1.9 GM/DL (3.2-5.2); ALT/SGPT 14 U/L (12-78); BILIRUBIN,DIRECT 0.2 MG/DL (0.0-0.2); BILIRUBIN,TOTAL 0.4 MG/DL (0.2-1.0); BLOOD UREA NITROGEN 70 MG/DL (7-18); CARBON DIOXIDE LEVEL 19 MEQ/L (21-32); CHLORIDE LEVEL 111 MEQ/L (98-107); CREATININE FOR GFR 3.01 MG/DL (0.55-1.30); GLOMERULAR FILTRATION RATE 15.8 (>32); GLUCOSE, FASTING 104 MG/DL (70-100); MAGNESIUM LEVEL 2.1 MG/DL (1.8-2.4); POTASSIUM SERUM 4.5 MEQ/L (3.5-5.1); SODIUM LEVEL 140 MEQ/L (136-145); TOTAL PROTEIN 4.9 GM/DL (6.4-8.2)
[2021-10-03] MEDS: HumaLOG INSULIN (NovoLOG) PER UNIT SC SCH ×4 (07:30→21:00)
[2021-10-03] MEDS: CHLORHEXIDINE GLUCONATE 0.12 % 15ML UDC (PERIDEX ORAL RINSE) MT SCH ×2 (08:11→21:00)
[2021-10-03] MEDS: SUCRALFATE 1 GM TAB PO SCH ×4 (08:12→21:10)
[2021-10-03] MEDS: MIDODRINE 5 MG TAB PO SCH ×3 (08:12→17:13)
[2021-10-03] MEDS: ASPIRIN 325 MG TAB PO SCH (08:12)
[2021-10-03] MEDS: PANTOPRAZOLE 40MG VIAL (C9113 PER 1) IV SCH ×2 (08:12→21:11)
[2021-10-03] MEDS: HEPARIN SOD (PORCINE) 5000UNITS/ML 1ML VIAL/SYRINGE SQ SCH ×2 (10:58→21:11)
[2021-10-03] MEDS: PIPERACILLIN/TAZOBACTAM SOD 4.5 GM in D5W MINI-BAG PLUS 50 ML IV SCH (11:00)
[2021-10-03] MEDS: TORSEMIDE 100 MG TAB PO SCH (11:50)
[2021-10-03] MEDS: SPIRONOLACTONE 25 MG TAB PO SCH ×2 (11:50→17:13)
[2021-10-03] MEDS: LACTOBACILLUS ACIDOPHILUS CAP (BACID) PO SCH ×3 (14:00→21:10)
[2021-10-03] MEDS ORDERED: LevoFLOXacin IV 750 MG in IV 1 EA IV ONE (14:00)
[2021-10-03 14:05] LABS: HEPATITIS B SURFACE ANTIGEN NEGATIVE (NEGATIVE)
[2021-10-03 14:30] LABS: BASO # 0.1 10^3/uL (0.0-0.2); BASO % 0.7 % (0.0-1.0); EOS # 0.2 10^3/uL (0.0-0.5); EOS % 2.6 % (0.0-3.0); HEMATOCRIT 24.4 % (36.0-47.0); HEMOGLOBIN 7.4 g/dl (12.0-15.5); LYMPH % 13.4 % (24.0-44.0); MEAN CORPUSCULAR HEMOGLOBIN 30.2 pg (27.0-33.0); MEAN CORPUSCULAR HGB CONC 30.3 g/dl (32.0-36.5); MEAN CORPUSCULAR VOLUME 99.6 fl (80.0-96.0); MONO # 0.6 10^3/uL (0.0-0.8); MONO % 8.3 % (2.0-8.0); NEUTROPHILS # 5.6 10^3/uL (1.5-8.5); NEUTROPHILS % 73.7 % (36.0-66.0); PLATELET COUNT, AUTOMATED 267 10^3/uL (150-450); RED BLOOD COUNT 2.45 10^6/uL (4.00-5.40); WHITE BLOOD COUNT 7.6 10^3/uL (4.0-10.0)
[2021-10-03 14:33] LABS: HEPATITIS C VIRUS ABY INDEX 0.1 INDEX (<0.8)
[2021-10-03 14:34] LABS: HEPATITIS B CORE ANTIBODY IGM NEGATIVE (NEGATIVE)
[2021-10-04] VITALS (16 sets, daily range): BP systolic 97–147; BP diastolic 46–78
[2021-10-04 04:58] LABS: BASO % 0.5 % (0.0-1.0); EOS # 0.2 10^3/uL (0.0-0.5); EOS % 2.1 % (0.0-3.0); HEMATOCRIT 25.5 % (36.0-47.0); LYMPH # 0.9 10^3/uL (1.5-5.0); LYMPH % 11.4 % (24.0-44.0); MEAN CORPUSCULAR HEMOGLOBIN 30.7 pg (27.0-33.0); MEAN CORPUSCULAR HGB CONC 31.4 g/dl (32.0-36.5); MEAN CORPUSCULAR VOLUME 97.7 fl (80.0-96.0); MONO # 0.6 10^3/uL (0.0-0.8); MONO % 8.3 % (2.0-8.0); NEUTROPHILS # 5.9 10^3/uL (1.5-8.5); NEUTROPHILS % 76.5 % (36.0-66.0); PLATELET COUNT, AUTOMATED 246 10^3/uL (150-450); RED BLOOD COUNT 2.61 10^6/uL (4.00-5.40); WHITE BLOOD COUNT 7.7 10^3/uL (4.0-10.0)
[2021-10-04 05:23] LABS: INR 1.19; PROTHROMBIN TIME 15.5 SECONDS (12.7-14.5)
[2021-10-04 05:29] LABS: ALBUMIN 1.9 GM/DL (3.2-5.2); BILIRUBIN,DIRECT 0.3 MG/DL (0.0-0.2); BILIRUBIN,TOTAL 0.7 MG/DL (0.2-1.0); CREATININE FOR GFR 2.9 MG/DL (0.55-1.30); GLOMERULAR FILTRATION RATE 16.5 (>32); MAGNESIUM LEVEL 1.9 MG/DL (1.8-2.4); POTASSIUM SERUM 4.5 MEQ/L (3.5-5.1); TOTAL PROTEIN 4.8 GM/DL (6.4-8.2)
[2021-10-04] MEDS: SUCRALFATE 1 GM TAB PO SCH ×4 (06:30→20:11)
[2021-10-04] MEDS: LEVOTHYROXINE 75MCG TABLET (0.075MG) PO SCH (06:31)
[2021-10-04] MEDS: HumaLOG INSULIN (NovoLOG) PER UNIT SC SCH ×4 (07:49→20:15)
[2021-10-04] MEDS: MIDODRINE 5 MG TAB PO SCH ×3 (07:49→15:33)
[2021-10-04] MEDS: LACTOBACILLUS ACIDOPHILUS CAP (BACID) PO SCH ×4 (07:49→20:11)
[2021-10-04] MEDS: TORSEMIDE 100 MG TAB PO SCH (09:49)
[2021-10-04] MEDS: ASPIRIN 325 MG TAB PO SCH (09:49)
[2021-10-04] MEDS: CHLORHEXIDINE GLUCONATE 0.12 % 15ML UDC (PERIDEX ORAL RINSE) MT SCH ×2 (09:49→20:06)
[2021-10-04] MEDS: HEPARIN SOD (PORCINE) 5000UNITS/ML 1ML VIAL/SYRINGE SQ SCH ×2 (09:49→21:07)
[2021-10-04] MEDS: SPIRONOLACTONE 25 MG TAB PO SCH ×2 (09:50→17:17)
[2021-10-04] MEDS: PANTOPRAZOLE 40MG VIAL (C9113 PER 1) IV SCH ×2 (09:50→20:11)
[2021-10-04] MEDS ORDERED: NEOSPORIN OINT 0.9 GM PKT TOP ONE (14:00)
[2021-10-04 15:28] LABS: BASO % 0.5 % (0.0-1.0); EOS # 0.2 10^3/uL (0.0-0.5); EOS % 2.4 % (0.0-3.0); HEMOGLOBIN 8.1 g/dl (12.0-15.5); LYMPH # 0.9 10^3/uL (1.5-5.0); LYMPH % 11.5 % (24.0-44.0); MEAN CORPUSCULAR HEMOGLOBIN 30.9 pg (27.0-33.0); MEAN CORPUSCULAR HGB CONC 31.2 g/dl (32.0-36.5); MEAN CORPUSCULAR VOLUME 99.2 fl (80.0-96.0); MONO # 0.7 10^3/uL (0.0-0.8); MONO % 9.3 % (2.0-8.0); NEUTROPHILS # 5.5 10^3/uL (1.5-8.5); NEUTROPHILS % 74.3 % (36.0-66.0); PLATELET COUNT, AUTOMATED 236 10^3/uL (150-450); RED BLOOD COUNT 2.62 10^6/uL (4.00-5.40); WHITE BLOOD COUNT 7.4 10^3/uL (4.0-10.0)
[2021-10-05] MEDS: LEVOTHYROXINE 75MCG TABLET (0.075MG) PO SCH (05:25)
[2021-10-05 05:39] LABS: BASO # 0.1 10^3/uL (0.0-0.2); BASO % 1.2 % (0.0-1.0); EOS # 0.3 10^3/uL (0.0-0.5); EOS % 4.7 % (0.0-3.0); HEMATOCRIT 26.4 % (36.0-47.0); HEMOGLOBIN 8.2 g/dl (12.0-15.5); LYMPH # 0.6 10^3/uL (1.5-5.0); LYMPH % 10.6 % (24.0-44.0); MEAN CORPUSCULAR HEMOGLOBIN 30.6 pg (27.0-33.0); MEAN CORPUSCULAR HGB CONC 31.1 g/dl (32.0-36.5); MEAN CORPUSCULAR VOLUME 98.5 fl (80.0-96.0); MONO # 0.5 10^3/uL (0.0-0.8); MONO % 9.1 % (2.0-8.0); NEUTROPHILS # 4.1 10^3/uL (1.5-8.5); NEUTROPHILS % 69.8 % (36.0-66.0); PLATELET COUNT, AUTOMATED 237 10^3/uL (150-450); RED BLOOD COUNT 2.68 10^6/uL (4.00-5.40); WHITE BLOOD COUNT 5.9 10^3/uL (4.0-10.0)
[2021-10-05 05:51] LABS: INR 1.14
[2021-10-05 06:00] VITALS: BP 125/57
[2021-10-05 06:07] LABS: ALBUMIN 1.9 GM/DL (3.2-5.2); BILIRUBIN,DIRECT 0.2 MG/DL (0.0-0.2); BILIRUBIN,TOTAL 0.6 MG/DL (0.2-1.0); CALCIUM LEVEL 7.2 MG/DL (8.8-10.2); CREATININE FOR GFR 2.82 MG/DL (0.55-1.30); MAGNESIUM LEVEL 1.9 MG/DL (1.8-2.4); POTASSIUM SERUM 4.3 MEQ/L (3.5-5.1); TOTAL PROTEIN 5.1 GM/DL (6.4-8.2)
[2021-10-05] MEDS: SUCRALFATE 1 GM TAB PO SCH ×2 (08:50→12:22)
[2021-10-05] MEDS: ASPIRIN 325 MG TAB PO SCH (08:50)
[2021-10-05] MEDS: PANTOPRAZOLE 40MG VIAL (C9113 PER 1) IV SCH (08:50)
[2021-10-05] MEDS: TORSEMIDE 100 MG TAB PO SCH (08:50)
[2021-10-05] MEDS: LACTOBACILLUS ACIDOPHILUS CAP (BACID) PO SCH ×2 (08:50→12:22)
[2021-10-05] MEDS: MIDODRINE 5 MG TAB PO SCH ×2 (08:50→12:24)
[2021-10-05] MEDS: CHLORHEXIDINE GLUCONATE 0.12 % 15ML UDC (PERIDEX ORAL RINSE) MT SCH (08:51)
[2021-10-05] MEDS: SPIRONOLACTONE 25 MG TAB PO SCH (08:51)
[2021-10-05] MEDS: HumaLOG INSULIN (NovoLOG) PER UNIT SC SCH ×2 (08:57→12:23)
[2021-10-05 09:00] VITALS: BP 132/60
[2021-10-05] MEDS ORDERED: VANCOMYCIN ORAL SOL 250MG/5ML ORAL SYRINGE PO SCH (09:00)
[2021-10-05] MEDS: HEPARIN SOD (PORCINE) 5000UNITS/ML 1ML VIAL/SYRINGE SQ SCH (09:01)
[2021-10-05] MEDS ORDERED: RISATAB3 PO (10:17)
[2021-10-05] MEDS ORDERED: ALDA25TA2 PO (10:17)
[2021-10-05] MEDS ORDERED: MIDO5TA PO (10:17)
[2021-10-05] MEDS ORDERED: LEVO500T4 PO (10:17)
[2021-10-05 12:20] VITALS: BP 131/59
[2021-10-05 14:00] VITALS: BP 129/58
[2021-10-05] MEDS ORDERED: LevoFLOXacin IV 500 MG in IV 1 EA IV SCH (14:00)
== END 2021-10-05 14:51 | DRG 871 ==
LOC: M ED 23:04 → M ED INP 10-01 04:47 → ENRESERV 10-01 05:51 → M ICU 10-01 09:02 → M MSPAV 10-04 21:10
PROVIDERS: ADMIT Internal Medicine; ATTEND Internal Medicine
PROC: 30233N1 Transfusion of Nonautologous Red Blood Cells into Peripheral Vein, Percutaneous Approach (ICD-10-PCS; principal; 2021-10-02)
DX: A41.9 Sepsis, unspecified organism (principal); R65.21 Severe sepsis with septic shock; U07.1 COVID-19; I50.33 Acute on chronic diastolic (congestive) heart failure; N39.0 Urinary tract infection, site not specified; N17.9 Acute kidney failure, unspecified; E87.1 Hypo-osmolality and hyponatremia; R18.8 Other ascites; I31.3 Pericardial effusion (noninflammatory); N18.4 Chronic kidney disease, stage 4 (severe); E87.2 Acidosis; E46 Unspecified protein-calorie malnutrition; Z66 Do not resuscitate; R19.7 Diarrhea, unspecified; E11.22 Type 2 diabetes mellitus with diabetic chronic kidney disease; E87.5 Hyperkalemia; E03.9 Hypothyroidism, unspecified; J30.1 Allergic rhinitis due to pollen; B96.89 Other specified bacterial agents as the cause of diseases classified elsewhere; K29.70 Gastritis, unspecified, without bleeding; D50.9 Iron deficiency anemia, unspecified; I48.91 Unspecified atrial fibrillation; K74.60 Unspecified cirrhosis of liver; M10.9 Gout, unspecified; Z79.82 Long term (current) use of aspirin; Z79.84 Long term (current) use of oral hypoglycemic drugs; Z79.899 Other long term (current) drug therapy; Z91.040 Latex allergy status; Z88.8 Allergy status to other drugs, medicaments and biological substances; Z90.49 Acquired absence of other specified parts of digestive tract; Z95.0 Presence of cardiac pacemaker

== ENCOUNTER 2021-10-05 12:51 | Inpatient (IN) | payer MEDICARE, OTHER ==
[~2021-10-05] VITALS: Ht 149.9 cm; Wt 90.1 kg
[~2021-10-05 12:51] MED LIST changes: +COMMENTS; +LEVO500T4 PO; +MIDO5TA PO; +RISATAB3 PO
[2021-10-05] MEDS ORDERED: GLUCOSE 4GM CHEW TABLET PO PRN (15:05)
[2021-10-05] MEDS ORDERED: DEXTROSE 50% 50 ML SYRINGE IV PRN (15:05)
[2021-10-05] MEDS ORDERED: MIRALAX *UNIT DOSE* 17GM PACKET PO PRN (15:05)
[2021-10-05] MEDS ORDERED: GLUCAGON INJ 1MG VIAL SC PRN (15:05)
[2021-10-05 15:35] VITALS: BP 135/64
[2021-10-05] MEDS ORDERED: PILL CUTTER 1 EACH XX PRN (17:10)
[2021-10-05] MEDS ORDERED: HOME MED LIST COMPLETE! XX SCH (17:25)
[2021-10-05] MEDS: HumaLOG INSULIN (NovoLOG) PER UNIT SC SCH ×2 (17:30→21:00)
[2021-10-05] MEDS: SPIRONOLACTONE 25 MG TAB PO SCH (18:22)
[2021-10-05] MEDS: MIDODRINE 5 MG TAB PO SCH (18:22)
[2021-10-05] MEDS: LACTOBACILLUS ACIDOPHILUS CAP (BACID) PO SCH ×2 (18:22→20:59)
[2021-10-05] MEDS: SUCRALFATE 1 GM TAB PO SCH ×2 (18:23→20:59)
[2021-10-05 20:00] VITALS: BP 120/58
[2021-10-05] MEDS: VANCOMYCIN ORAL SOL 250MG/5ML ORAL SYRINGE PO SCH (20:58)
[2021-10-05] MEDS: CHLORHEXIDINE GLUCONATE 0.12 % 15ML UDC (PERIDEX ORAL RINSE) MT SCH (20:58)
[2021-10-05] MEDS: VITAMIN D 1,000 INTERNATIONAL UNITS TABLET PO SCH (20:59)
[2021-10-05] MEDS: PANTOPRAZOLE 40MG TAB (PROTONIX) PO SCH (20:59)
[2021-10-05] MEDS: HEPARIN SOD (PORCINE) 5000UNITS/ML 1ML VIAL/SYRINGE SC SCH (20:59)
[2021-10-05] MEDS: FERROUS SULFATE 325MG TAB PO SCH (20:59)
[2021-10-05] MEDS: FLUTICASONE PROP 0.05% NASAL SPRAY 16 GM (FLONASE) NARES SCH (21:00)
[2021-10-05] MEDS: REMEDY PHYTOPLEX Z-GUARD PASTE 113GM TUBE (FROM STOREROOM PRODUCT) TOP SCH (21:06)
[2021-10-06] MEDS: LEVOTHYROXINE 75MCG TABLET (0.075MG) PO SCH (05:33)
[2021-10-06 06:00] VITALS: BP 141/63
[2021-10-06 07:33] LABS: HEMATOCRIT 27.6 % (36.0-47.0); HEMOGLOBIN 8.5 g/dl (12.0-15.5); MEAN CORPUSCULAR HEMOGLOBIN 30.6 pg (27.0-33.0); MEAN CORPUSCULAR HGB CONC 30.8 g/dl (32.0-36.5); MEAN CORPUSCULAR VOLUME 99.3 fl (80.0-96.0); PLATELET COUNT, AUTOMATED 277 10^3/uL (150-450); RED BLOOD COUNT 2.78 10^6/uL (4.00-5.40); WHITE BLOOD COUNT 6.2 10^3/uL (4.0-10.0)
[2021-10-06 08:01] LABS: ALBUMIN 2.2 GM/DL (3.2-5.2); BILIRUBIN,TOTAL 0.6 MG/DL (0.2-1.0); CALCIUM LEVEL 7.9 MG/DL (8.8-10.2); CREATININE FOR GFR 2.62 MG/DL (0.55-1.30); GLOMERULAR FILTRATION RATE 18.5 (>32)
[2021-10-06 08:36] LABS: ANISOCYTOSIS 1+; ATYPICAL LYMPH 1 % (0-5); BASOPHILS 2 % (0-1); EOSINOPHILS 7 % (0-3); LYMPHOCYTES 11 % (16-44); METAMYELOCYTES 2 % (0-0); MONOCYTES 7 % (0-5); MYELOCYTES 4 % (0-0); NEUTROPHILS 66 % (28-66); PLATELET ESTIMATE NORMAL (NORMAL)
[2021-10-06 08:37] LABS: OVALOCYTES 1+
[2021-10-06] MEDS ORDERED: TORSEMIDE 100 MG TAB PO SCH (09:00)
[2021-10-06] MEDS: FLUTICASONE PROP 0.05% NASAL SPRAY 16 GM (FLONASE) NARES SCH ×2 (09:00→20:43)
[2021-10-06] MEDS: HumaLOG INSULIN (NovoLOG) PER UNIT SC SCH ×4 (09:54→20:43)
[2021-10-06] MEDS: PANTOPRAZOLE 40MG TAB (PROTONIX) PO SCH ×2 (09:54→20:42)
[2021-10-06] MEDS: ASPIRIN ENTERIC 325 MG TAB PO SCH (09:54)
[2021-10-06] MEDS: CHLORHEXIDINE GLUCONATE 0.12 % 15ML UDC (PERIDEX ORAL RINSE) MT SCH ×2 (09:54→20:46)
[2021-10-06] MEDS: VANCOMYCIN ORAL SOL 250MG/5ML ORAL SYRINGE PO SCH ×2 (09:54→20:43)
[2021-10-06] MEDS: LACTOBACILLUS ACIDOPHILUS CAP (BACID) PO SCH ×4 (09:54→20:42)
[2021-10-06] MEDS: allopurinoL 300 MG TAB PO SCH (09:54)
[2021-10-06] MEDS: LORATADINE 10 MG TAB PO SCH (09:55)
[2021-10-06] MEDS: MIDODRINE 5 MG TAB PO SCH ×2 (09:55→17:09)
[2021-10-06] MEDS: FERROUS SULFATE 325MG TAB PO SCH ×2 (09:55→20:42)
[2021-10-06] MEDS: SUCRALFATE 1 GM TAB PO SCH ×4 (09:55→20:42)
[2021-10-06] MEDS: SPIRONOLACTONE 25 MG TAB PO SCH ×2 (09:55→17:09)
[2021-10-06] MEDS: HEPARIN SOD (PORCINE) 5000UNITS/ML 1ML VIAL/SYRINGE SC SCH ×2 (09:56→20:43)
[2021-10-06] MEDS: CALCIUM/VITAMIN D 500 MG TAB PO SCH (09:56)
[2021-10-06] MEDS: VITAMIN D 1,000 INTERNATIONAL UNITS TABLET PO SCH ×2 (09:56→20:42)
[2021-10-06] MEDS: REMEDY PHYTOPLEX Z-GUARD PASTE 113GM TUBE (FROM STOREROOM PRODUCT) TOP SCH ×3 (09:57→20:43)
[2021-10-06 14:00] VITALS: BP 120/55
[2021-10-06 20:00] VITALS: BP 126/62
[2021-10-06] MEDS: TORSEMIDE 100 MG TAB PO SCH (20:42)
[2021-10-07] MEDS: LEVOTHYROXINE 75MCG TABLET (0.075MG) PO SCH (05:28)
[2021-10-07 06:00] VITALS: BP 126/65
[2021-10-07 06:59] LABS: HEMATOCRIT 26.8 % (36.0-47.0); HEMOGLOBIN 8.4 g/dl (12.0-15.5); MEAN CORPUSCULAR HGB CONC 31.3 g/dl (32.0-36.5); MEAN CORPUSCULAR VOLUME 98.9 fl (80.0-96.0); PLATELET COUNT, AUTOMATED 268 10^3/uL (150-450); RED BLOOD COUNT 2.71 10^6/uL (4.00-5.40)
[2021-10-07 07:15] LABS: CALCIUM LEVEL 8.1 MG/DL (8.8-10.2); CREATININE FOR GFR 2.45 MG/DL (0.55-1.30); POTASSIUM SERUM 4.1 MEQ/L (3.5-5.1)
[2021-10-07] MEDS: SUCRALFATE 1 GM TAB PO SCH ×4 (07:30→22:24)
[2021-10-07] MEDS: HumaLOG INSULIN (NovoLOG) PER UNIT SC SCH ×4 (07:30→21:00)
[2021-10-07 07:33] LABS: BASOPHILS 2 % (0-1); EOSINOPHILS 3 % (0-3); LYMPHOCYTES 9 % (16-44); METAMYELOCYTES 2 % (0-0); MONOCYTES 8 % (0-5); MYELOCYTES 2 % (0-0); NEUTROPHILS 73 % (28-66)
[2021-10-07 07:34] LABS: PLATELET ESTIMATE NORMAL (NORMAL)
[2021-10-07 07:35] LABS: ANISOCYTOSIS 2+
[2021-10-07] MEDS: FLUTICASONE PROP 0.05% NASAL SPRAY 16 GM (FLONASE) NARES SCH ×2 (09:00→21:00)
[2021-10-07] MEDS: CHLORHEXIDINE GLUCONATE 0.12 % 15ML UDC (PERIDEX ORAL RINSE) MT SCH ×2 (10:18→22:26)
[2021-10-07] MEDS: LORATADINE 10 MG TAB PO SCH (10:18)
[2021-10-07] MEDS: FERROUS SULFATE 325MG TAB PO SCH ×2 (10:18→22:25)
[2021-10-07] MEDS: SPIRONOLACTONE 25 MG TAB PO SCH ×2 (10:18→17:29)
[2021-10-07] MEDS: CALCIUM/VITAMIN D 500 MG TAB PO SCH (10:18)
[2021-10-07] MEDS: PANTOPRAZOLE 40MG TAB (PROTONIX) PO SCH ×2 (10:18→22:24)
[2021-10-07] MEDS: VITAMIN D 1,000 INTERNATIONAL UNITS TABLET PO SCH ×2 (10:19→22:25)
[2021-10-07] MEDS: LACTOBACILLUS ACIDOPHILUS CAP (BACID) PO SCH ×4 (10:19→22:25)
[2021-10-07] MEDS: ASPIRIN ENTERIC 325 MG TAB PO SCH (10:19)
[2021-10-07] MEDS: VANCOMYCIN ORAL SOL 250MG/5ML ORAL SYRINGE PO SCH ×2 (10:19→22:25)
[2021-10-07] MEDS: HEPARIN SOD (PORCINE) 5000UNITS/ML 1ML VIAL/SYRINGE SC SCH ×2 (10:19→22:27)
[2021-10-07] MEDS: MIDODRINE 5 MG TAB PO SCH ×2 (10:19→17:28)
[2021-10-07] MEDS: allopurinoL 300 MG TAB PO SCH (10:19)
[2021-10-07] MEDS: REMEDY PHYTOPLEX Z-GUARD PASTE 113GM TUBE (FROM STOREROOM PRODUCT) TOP SCH ×3 (10:20→22:29)
[2021-10-07] MEDS: TORSEMIDE 100 MG TAB PO SCH ×2 (12:56→22:25)
[2021-10-07 14:00] VITALS: BP 135/63
[2021-10-07] MEDS: LevoFLOXacin 500 MG TABLET PO SCH (17:28)
[2021-10-07 20:30] VITALS: BP 134/84
[2021-10-07] MEDS: ACETAMINOPHEN TAB 650MG DOSE (2X325MG) PO PRN (22:32)
[2021-10-08 04:40] VITALS: BP 134/63
[2021-10-08] MEDS: LEVOTHYROXINE 75MCG TABLET (0.075MG) PO SCH (05:35)
[2021-10-08] MEDS: FERROUS SULFATE 325MG TAB PO SCH ×2 (07:53→20:31)
[2021-10-08] MEDS: SUCRALFATE 1 GM TAB PO SCH ×4 (07:53→20:31)
[2021-10-08] MEDS: CALCIUM/VITAMIN D 500 MG TAB PO SCH (07:53)
[2021-10-08] MEDS: MIDODRINE 5 MG TAB PO SCH ×2 (07:54→17:03)
[2021-10-08] MEDS: allopurinoL 300 MG TAB PO SCH (07:54)
[2021-10-08] MEDS: PANTOPRAZOLE 40MG TAB (PROTONIX) PO SCH ×2 (07:54→20:32)
[2021-10-08] MEDS: ASPIRIN ENTERIC 325 MG TAB PO SCH (07:54)
[2021-10-08] MEDS: LORATADINE 10 MG TAB PO SCH (07:54)
[2021-10-08] MEDS: TORSEMIDE 100 MG TAB PO SCH ×2 (07:54→20:31)
[2021-10-08] MEDS: LACTOBACILLUS ACIDOPHILUS CAP (BACID) PO SCH ×4 (07:54→20:31)
[2021-10-08] MEDS: VITAMIN D 1,000 INTERNATIONAL UNITS TABLET PO SCH ×2 (07:54→20:31)
[2021-10-08] MEDS: CHLORHEXIDINE GLUCONATE 0.12 % 15ML UDC (PERIDEX ORAL RINSE) MT SCH ×2 (07:55→20:46)
[2021-10-08] MEDS: SPIRONOLACTONE 25 MG TAB PO SCH ×2 (07:55→17:04)
[2021-10-08] MEDS: HumaLOG INSULIN (NovoLOG) PER UNIT SC SCH ×4 (07:55→20:41)
[2021-10-08] MEDS: VANCOMYCIN ORAL SOL 250MG/5ML ORAL SYRINGE PO SCH ×2 (07:55→20:32)
[2021-10-08] MEDS: REMEDY PHYTOPLEX Z-GUARD PASTE 113GM TUBE (FROM STOREROOM PRODUCT) TOP SCH ×3 (07:56→20:33)
[2021-10-08] MEDS: HEPARIN SOD (PORCINE) 5000UNITS/ML 1ML VIAL/SYRINGE SC SCH ×2 (07:56→20:31)
[2021-10-08] MEDS: FLUTICASONE PROP 0.05% NASAL SPRAY 16 GM (FLONASE) NARES SCH ×2 (07:56→20:33)
[2021-10-08 08:49] LABS: HEMATOCRIT 28.2 % (36.0-47.0); HEMOGLOBIN 8.8 g/dl (12.0-15.5); MEAN CORPUSCULAR HEMOGLOBIN 31.1 pg (27.0-33.0); MEAN CORPUSCULAR HGB CONC 31.2 g/dl (32.0-36.5); MEAN CORPUSCULAR VOLUME 99.6 fl (80.0-96.0); PLATELET COUNT, AUTOMATED 284 10^3/uL (150-450); RED BLOOD COUNT 2.83 10^6/uL (4.00-5.40); WHITE BLOOD COUNT 6.2 10^3/uL (4.0-10.0)
[2021-10-08 09:03] LABS: CALCIUM LEVEL 8.5 MG/DL (8.8-10.2); CREATININE FOR GFR 2.51 MG/DL (0.55-1.30); GLOMERULAR FILTRATION RATE 19.4 (>32); POTASSIUM SERUM 4.3 MEQ/L (3.5-5.1)
[2021-10-08] MEDS: ACETAMINOPHEN TAB 650MG DOSE (2X325MG) PO PRN (11:59)
[2021-10-08 13:38] VITALS: BP 108/51
[2021-10-08 17:05] VITALS: BP 134/63
[2021-10-08 20:00] VITALS: BP 138/63
[2021-10-09 06:00] VITALS: BP 130/62
[2021-10-09] MEDS: LEVOTHYROXINE 75MCG TABLET (0.075MG) PO SCH (06:30)
[2021-10-09] MEDS: SUCRALFATE 1 GM TAB PO SCH ×4 (07:49→21:00)
[2021-10-09] MEDS: ASPIRIN ENTERIC 325 MG TAB PO SCH (07:50)
[2021-10-09] MEDS: TORSEMIDE 100 MG TAB PO SCH ×2 (07:50→21:00)
[2021-10-09] MEDS: allopurinoL 300 MG TAB PO SCH (07:50)
[2021-10-09] MEDS: PANTOPRAZOLE 40MG TAB (PROTONIX) PO SCH ×2 (07:50→21:00)
[2021-10-09] MEDS: LACTOBACILLUS ACIDOPHILUS CAP (BACID) PO SCH ×4 (07:50→21:00)
[2021-10-09] MEDS: HumaLOG INSULIN (NovoLOG) PER UNIT SC SCH ×4 (07:50→21:00)
[2021-10-09] MEDS: CALCIUM/VITAMIN D 500 MG TAB PO SCH (07:50)
[2021-10-09] MEDS: MIDODRINE 5 MG TAB PO SCH ×2 (07:50→17:31)
[2021-10-09] MEDS: LORATADINE 10 MG TAB PO SCH (07:51)
[2021-10-09] MEDS: SPIRONOLACTONE 25 MG TAB PO SCH ×2 (07:51→17:31)
[2021-10-09] MEDS: VANCOMYCIN ORAL SOL 250MG/5ML ORAL SYRINGE PO SCH ×2 (07:51→20:59)
[2021-10-09] MEDS: VITAMIN D 1,000 INTERNATIONAL UNITS TABLET PO SCH ×2 (07:51→21:00)
[2021-10-09] MEDS: FERROUS SULFATE 325MG TAB PO SCH ×2 (07:51→21:00)
[2021-10-09] MEDS: HEPARIN SOD (PORCINE) 5000UNITS/ML 1ML VIAL/SYRINGE SC SCH ×2 (07:51→21:00)
[2021-10-09] MEDS: REMEDY PHYTOPLEX Z-GUARD PASTE 113GM TUBE (FROM STOREROOM PRODUCT) TOP SCH ×3 (07:52→21:01)
[2021-10-09] MEDS: CHLORHEXIDINE GLUCONATE 0.12 % 15ML UDC (PERIDEX ORAL RINSE) MT SCH ×2 (07:52→20:59)
[2021-10-09] MEDS: FLUTICASONE PROP 0.05% NASAL SPRAY 16 GM (FLONASE) NARES SCH ×2 (07:52→21:00)
[2021-10-09 14:00] VITALS: BP 108/54
[2021-10-09] MEDS: LevoFLOXacin 500 MG TABLET PO SCH (17:30)
[2021-10-09 20:40] VITALS: BP 143/65
[2021-10-10] MEDS: LEVOTHYROXINE 75MCG TABLET (0.075MG) PO SCH (05:46)
[2021-10-10 05:49] VITALS: BP 112/56
[2021-10-10 06:57] LABS: HEMATOCRIT 25.2 % (36.0-47.0); HEMOGLOBIN 7.8 g/dl (12.0-15.5); MEAN CORPUSCULAR HEMOGLOBIN 30.8 pg (27.0-33.0); MEAN CORPUSCULAR VOLUME 99.6 fl (80.0-96.0); PLATELET COUNT, AUTOMATED 249 10^3/uL (150-450); RED BLOOD COUNT 2.53 10^6/uL (4.00-5.40)
[2021-10-10 07:19] LABS: CALCIUM LEVEL 8.6 MG/DL (8.8-10.2); CREATININE FOR GFR 2.57 MG/DL (0.55-1.30); GLOMERULAR FILTRATION RATE 18.9 (>32)
[2021-10-10] MEDS: HumaLOG INSULIN (NovoLOG) PER UNIT SC SCH ×4 (07:27→20:26)
[2021-10-10] MEDS: SUCRALFATE 1 GM TAB PO SCH ×4 (07:30→20:25)
[2021-10-10 07:40] LABS: ANISOCYTOSIS 1+; EOSINOPHILS 1 % (0-3); LYMPHOCYTES 17 % (16-44); METAMYELOCYTES 3 % (0-0); MONOCYTES 12 % (0-5); MYELOCYTES 2 % (0-0); NEUTROPHILS 64 % (28-66); PLATELET ESTIMATE NORMAL (NORMAL)
[2021-10-10] MEDS: VANCOMYCIN ORAL SOL 250MG/5ML ORAL SYRINGE PO SCH ×2 (08:36→20:25)
[2021-10-10] MEDS: allopurinoL 300 MG TAB PO SCH (08:37)
[2021-10-10] MEDS: LACTOBACILLUS ACIDOPHILUS CAP (BACID) PO SCH ×4 (08:37→20:25)
[2021-10-10] MEDS: CHLORHEXIDINE GLUCONATE 0.12 % 15ML UDC (PERIDEX ORAL RINSE) MT SCH ×2 (08:37→20:25)
[2021-10-10] MEDS: CALCIUM/VITAMIN D 500 MG TAB PO SCH (08:37)
[2021-10-10] MEDS: VITAMIN D 1,000 INTERNATIONAL UNITS TABLET PO SCH ×2 (08:37→20:25)
[2021-10-10] MEDS: ASPIRIN ENTERIC 325 MG TAB PO SCH (08:38)
[2021-10-10] MEDS: FERROUS SULFATE 325MG TAB PO SCH ×2 (08:38→20:25)
[2021-10-10] MEDS: LORATADINE 10 MG TAB PO SCH (08:38)
[2021-10-10] MEDS: HEPARIN SOD (PORCINE) 5000UNITS/ML 1ML VIAL/SYRINGE SC SCH ×2 (08:38→20:26)
[2021-10-10] MEDS: TORSEMIDE 100 MG TAB PO SCH ×2 (08:38→20:25)
[2021-10-10] MEDS: SPIRONOLACTONE 25 MG TAB PO SCH (08:38)
[2021-10-10] MEDS: PANTOPRAZOLE 40MG TAB (PROTONIX) PO SCH ×2 (08:39→20:25)
[2021-10-10] MEDS: FLUTICASONE PROP 0.05% NASAL SPRAY 16 GM (FLONASE) NARES SCH ×2 (08:39→20:27)
[2021-10-10] MEDS: MIDODRINE 5 MG TAB PO SCH ×2 (08:39→15:57)
[2021-10-10] MEDS: REMEDY PHYTOPLEX Z-GUARD PASTE 113GM TUBE (FROM STOREROOM PRODUCT) TOP SCH ×3 (08:39→20:26)
[2021-10-10 14:00] VITALS: BP 143/65
[2021-10-10 19:37] VITALS: BP 124/58
[2021-10-11 05:11] VITALS: BP 115/54
[2021-10-11] MEDS: LEVOTHYROXINE 75MCG TABLET (0.075MG) PO SCH (05:54)
[2021-10-11] MEDS: MIDODRINE 5 MG TAB PO SCH ×2 (08:00→15:19)
[2021-10-11] MEDS: FLUTICASONE PROP 0.05% NASAL SPRAY 16 GM (FLONASE) NARES SCH ×2 (09:00→20:29)
[2021-10-11] MEDS: VITAMIN D 1,000 INTERNATIONAL UNITS TABLET PO SCH ×2 (09:17→20:28)
[2021-10-11] MEDS: CHLORHEXIDINE GLUCONATE 0.12 % 15ML UDC (PERIDEX ORAL RINSE) MT SCH ×2 (09:17→20:29)
[2021-10-11] MEDS: HEPARIN SOD (PORCINE) 5000UNITS/ML 1ML VIAL/SYRINGE SC SCH (09:18)
[2021-10-11] MEDS: VANCOMYCIN ORAL SOL 250MG/5ML ORAL SYRINGE PO SCH ×2 (09:18→20:29)
[2021-10-11] MEDS: ASPIRIN ENTERIC 325 MG TAB PO SCH (09:18)
[2021-10-11] MEDS: HumaLOG INSULIN (NovoLOG) PER UNIT SC SCH ×4 (09:19→20:29)
[2021-10-11] MEDS: FERROUS SULFATE 325MG TAB PO SCH ×2 (09:19→20:28)
[2021-10-11] MEDS: LORATADINE 10 MG TAB PO SCH (09:19)
[2021-10-11] MEDS: PANTOPRAZOLE 40MG TAB (PROTONIX) PO SCH ×2 (09:19→20:28)
[2021-10-11] MEDS: allopurinoL 300 MG TAB PO SCH (09:19)
[2021-10-11] MEDS: CALCIUM/VITAMIN D 500 MG TAB PO SCH (09:19)
[2021-10-11 09:20] VITALS: BP 141/64
[2021-10-11] MEDS: SUCRALFATE 1 GM TAB PO SCH ×4 (09:27→20:28)
[2021-10-11] MEDS: LACTOBACILLUS ACIDOPHILUS CAP (BACID) PO SCH ×4 (09:27→20:28)
[2021-10-11] MEDS: TORSEMIDE 100 MG TAB PO SCH ×2 (09:27→20:28)
[2021-10-11] MEDS: REMEDY PHYTOPLEX Z-GUARD PASTE 113GM TUBE (FROM STOREROOM PRODUCT) TOP SCH ×3 (09:28→20:29)
[2021-10-11 15:15] VITALS: BP 143/66
[2021-10-11 17:13] LABS: HEMATOCRIT 29.7 % (36.0-47.0); HEMOGLOBIN 9.2 g/dl (12.0-15.5)
[2021-10-11] MEDS: LevoFLOXacin 500 MG TABLET PO SCH (17:27)
[2021-10-11 20:00] VITALS: BP 125/56
[2021-10-11] MEDS: ACETAMINOPHEN TAB 650MG DOSE (2X325MG) PO PRN (22:49)
[2021-10-12 06:00] VITALS: BP 152/71
[2021-10-12] MEDS: LEVOTHYROXINE 75MCG TABLET (0.075MG) PO SCH (06:15)
[2021-10-12 06:56] LABS: BASO # 0.1 10^3/uL (0.0-0.2); EOS # 0.2 10^3/uL (0.0-0.5); EOS % 3.1 % (0.0-3.0); HEMATOCRIT 27.7 % (36.0-47.0); HEMOGLOBIN 8.5 g/dl (12.0-15.5); LYMPH # 0.9 10^3/uL (1.5-5.0); LYMPH % 14.9 % (24.0-44.0); MEAN CORPUSCULAR HEMOGLOBIN 30.8 pg (27.0-33.0); MEAN CORPUSCULAR HGB CONC 30.7 g/dl (32.0-36.5); MEAN CORPUSCULAR VOLUME 100.4 fl (80.0-96.0); MONO # 0.6 10^3/uL (0.0-0.8); MONO % 9.7 % (2.0-8.0); NEUTROPHILS # 4.2 10^3/uL (1.5-8.5); NEUTROPHILS % 67.7 % (36.0-66.0); PLATELET COUNT, AUTOMATED 237 10^3/uL (150-450); RED BLOOD COUNT 2.76 10^6/uL (4.00-5.40); WHITE BLOOD COUNT 6.2 10^3/uL (4.0-10.0)
[2021-10-12] MEDS ORDERED: DARBEPOETIN 40 MCG/0.4 ML *NON-DIALYSIS* SYRINGE (J0881) SQ SCH ×2 (07:00→09:00)
[2021-10-12 07:20] LABS: CALCIUM LEVEL 8.5 MG/DL (8.8-10.2); CREATININE FOR GFR 2.53 MG/DL (0.55-1.30); GLOMERULAR FILTRATION RATE 19.3 (>32); POTASSIUM SERUM 4.3 MEQ/L (3.5-5.1)
[2021-10-12] MEDS: HumaLOG INSULIN (NovoLOG) PER UNIT SC SCH (07:30)
[2021-10-12] MEDS: SUCRALFATE 1 GM TAB PO SCH (07:30)
[2021-10-12] MEDS: MIDODRINE 5 MG TAB PO SCH (08:00)
[2021-10-12] MEDS: FLUTICASONE PROP 0.05% NASAL SPRAY 16 GM (FLONASE) NARES SCH (09:00)
[2021-10-12] MEDS: REMEDY PHYTOPLEX Z-GUARD PASTE 113GM TUBE (FROM STOREROOM PRODUCT) TOP SCH (09:00)
[2021-10-12] MEDS: CHLORHEXIDINE GLUCONATE 0.12 % 15ML UDC (PERIDEX ORAL RINSE) MT SCH (09:21)
[2021-10-12] MEDS: LACTOBACILLUS ACIDOPHILUS CAP (BACID) PO SCH (09:21)
[2021-10-12] MEDS: CALCIUM/VITAMIN D 500 MG TAB PO SCH (09:22)
[2021-10-12] MEDS: ASPIRIN ENTERIC 325 MG TAB PO SCH (09:22)
[2021-10-12] MEDS: VANCOMYCIN ORAL SOL 250MG/5ML ORAL SYRINGE PO SCH (09:22)
[2021-10-12] MEDS: allopurinoL 300 MG TAB PO SCH (09:22)
[2021-10-12] MEDS: PANTOPRAZOLE 40MG TAB (PROTONIX) PO SCH (09:22)
[2021-10-12] MEDS: LORATADINE 10 MG TAB PO SCH (09:22)
[2021-10-12] MEDS: FERROUS SULFATE 325MG TAB PO SCH (09:23)
[2021-10-12] MEDS: VITAMIN D 1,000 INTERNATIONAL UNITS TABLET PO SCH (09:23)
[2021-10-12] MEDS: TORSEMIDE 100 MG TAB PO SCH (09:23)
[2021-10-12] MEDS ORDERED: RISATAB3 PO (10:53)
[2021-10-12] MEDS ORDERED: FERR1TAB8 PO (10:53)
[2021-10-12] MEDS ORDERED: TORS100T PO (10:53)
[2021-10-12] MEDS ORDERED: PANT40TA29 PO (10:53)
[2021-10-12] MEDS ORDERED: VITA100093 PO (10:53)
[2021-10-12] MEDS ORDERED: ASPI-255 PO (10:53)
[2021-10-12] MEDS ORDERED: ALLO300T2 PO (10:53)
[2021-10-12] MEDS ORDERED: MIDO5TA PO (10:53)
[2021-10-12] MEDS ORDERED: LEVO500T4 PO (10:53)
[2021-10-12] MEDS ORDERED: SUCR1TA PO (10:53)
[2021-10-12] MEDS ORDERED: SYNT75TA PO (10:53)
[2021-10-12] MEDS ORDERED: FIRV50SO PO (10:53)
== END 2021-10-12 11:45 | disposition home health service (06) | DRG 74 ==
LOC: M PM&R 14:55 → UNDOADMIN 16:46
PROVIDERS: ADMIT Physical Medicine & Rehabilitation; ATTEND Physical Medicine & Rehabilitation
PROC: 0W9D3ZZ Drainage of Pericardial Cavity, Percutaneous Approach (ICD-10-PCS; principal; 2021-10-06 15:00)
DX: E11.42 Type 2 diabetes mellitus with diabetic polyneuropathy (principal); R18.8 Other ascites; N18.4 Chronic kidney disease, stage 4 (severe); R53.1 Weakness; K74.60 Unspecified cirrhosis of liver; E03.9 Hypothyroidism, unspecified; I48.91 Unspecified atrial fibrillation; Z95.0 Presence of cardiac pacemaker; D64.9 Anemia, unspecified; M10.9 Gout, unspecified; I50.9 Heart failure, unspecified; Z86.16 Personal history of COVID-19; Z74.09 Other reduced mobility; Z74.1 Need for assistance with personal care; R30.0 Dysuria; E11.22 Type 2 diabetes mellitus with diabetic chronic kidney disease; Z79.82 Long term (current) use of aspirin; Z79.899 Other long term (current) drug therapy; Z88.5 Allergy status to narcotic agent; Z91.040 Latex allergy status; J30.1 Allergic rhinitis due to pollen; Z66 Do not resuscitate; Z90.49 Acquired absence of other specified parts of digestive tract; Z90.79 Acquired absence of other genital organ(s); I95.9 Hypotension, unspecified; E86.1 Hypovolemia

== ENCOUNTER → 2021-11-30 | Outpatient (CLI) | payer MEDICARE, OTHER ==
[~2021-11-30] MED LIST changes: +B-12100021 PO; +BUME2TAB3; +E-Z-GAS II EFFERVESCENT PACKET (SODIUM BICARB./CITRIC ACID/SIMETHICONE) As Ordered ONE; +E-Z-HD 98% w/w 340GM SUSP BTL As Ordered ONE; +E-Z-PAQUE 96% w/w SUSP 176GM BTL As Ordered ONE; +FERR325T19; +FIRV50SO PO; +METO1TAB32; +SPIR-10
== END ==
LOC: M RAD 08:45
PROVIDERS: ATTEND Internal Medicine Nephrology
DX: K21.9 Gastro-esophageal reflux disease without esophagitis (principal); K25.4 Chronic or unspecified gastric ulcer with hemorrhage

== ENCOUNTER → 2021-12-29 | Outpatient (CLI) | payer MEDICARE, OTHER ==
[~2021-12-29] MED LIST changes: -E-Z-GAS II EFFERVESCENT PACKET (SODIUM BICARB./CITRIC ACID/SIMETHICONE) As Ordered ONE; -E-Z-HD 98% w/w 340GM SUSP BTL As Ordered ONE; -E-Z-PAQUE 96% w/w SUSP 176GM BTL As Ordered ONE
[2021-12-29 08:58] VITALS: BP 101/54
== END ==
LOC: M IRPRO 08:15
PROVIDERS: ATTEND Nurse Practitioner Family
DX: R18.8 Other ascites (principal)

== ENCOUNTER → 2022-04-07 | Outpatient (CLI) | payer MEDICARE, OTHER ==
[~2022-04-07] MED LIST changes: +AMMO12CR7 TOP; +ASPI32ECTA PO; -BUME2TAB3; +BUME2TAB3 PO; +CYAN100050 PO; +JARD1TAB PO; +LEVO1TAB38 PO; +LEVO1TAB39 PO; -LEVO250T3 PO; -LEVO500T4 PO; +LIDOCAINE 1% MDV 20ML VIAL As Ordered ONE; -METO1TAB32; +METO25TA PO; +PROT1TAB2 PO; -SPIR-10; +SUCR1TAB56 PO
[2022-04-07 10:56] VITALS: BP 114/59
== END ==
LOC: M IRPRO 10:02
PROVIDERS: ATTEND Internal Medicine Nephrology
DX: R18.8 Other ascites (principal)

== ENCOUNTER → 2022-05-15 | Outpatient (CLI) | payer MEDICARE, OTHER ==
[~2022-05-15] MED LIST changes: -LIDOCAINE 1% MDV 20ML VIAL As Ordered ONE
== END ==
LOC: M WHC 09:05
PROVIDERS: ATTEND Internal Medicine
DX: R94.5 Abnormal results of liver function studies (principal); K76.0 Fatty (change of) liver, not elsewhere classified; R18.8 Other ascites; N28.1 Cyst of kidney, acquired

== ENCOUNTER → 2022-07-14 | Outpatient (CLI) | payer MEDICARE, OTHER ==
[2022-07-14 10:59] LABS: HEMATOCRIT 34.6 % (36.0-47.0); HEMOGLOBIN 10.8 g/dl (12.0-15.5); MEAN CORPUSCULAR HEMOGLOBIN 31.8 pg (27.0-33.0); MEAN CORPUSCULAR HGB CONC 31.2 g/dl (32.0-36.5); MEAN CORPUSCULAR VOLUME 101.8 fl (80.0-96.0); PLATELET COUNT, AUTOMATED 249 10^3/uL (150-450); WHITE BLOOD COUNT 7.6 10^3/uL (4.0-10.0)
[2022-07-14 11:28] LABS: ALBUMIN 2.3 G/DL (3.2-5.2); BILIRUBIN,TOTAL 0.6 MG/DL (0.3-1.2); CALCIUM LEVEL 7.6 MG/DL (8.3-10.6); CHOLESTEROL RISK RATIO 2.79 (<5); CREATININE FOR GFR 2.48 MG/DL (0.55-1.30); GLOMERULAR FILTRATION RATE 19.7 (>32); HDL CHOLESTEROL 37.6 MG/DL (>40); LDL CHOLESTEROL 48.4 MG/DL (<100); POTASSIUM SERUM 3.5 MMOL/L (3.5-5.1); THYROID STIMULATING HORMONE 2.411 uIU/ML (0.55-4.78); TOTAL PROTEIN 6.3 G/DL (5.7-8.2)
[2022-07-14 11:32] VITALS: BP 104/57
== END ==
LOC: M IRPRO 10:19
PROVIDERS: ATTEND Internal Medicine Nephrology
DX: K74.69 Other cirrhosis of liver (principal); R18.8 Other ascites; Z79.890 Hormone replacement therapy; Z79.899 Other long term (current) drug therapy

== ENCOUNTER 2022-08-02 10:56 | Inpatient (IN) | payer MEDICARE, OTHER ==
[~2022-08-02] VITALS: Ht 149.9 cm; Wt 74.6 kg
[2022-08-02 13:28] LABS: BASO % 0.3 % (0.0-1.0); EOS % 0.2 % (0.0-3.0); HEMATOCRIT 34.1 % (36.0-47.0); HEMOGLOBIN 11.5 g/dl (12.0-15.5); LYMPH # 0.3 10^3/uL (1.5-5.0); LYMPH % 2.5 % (24.0-44.0); MEAN CORPUSCULAR HEMOGLOBIN 31.7 pg (27.0-33.0); MEAN CORPUSCULAR HGB CONC 33.7 g/dl (32.0-36.5); MEAN CORPUSCULAR VOLUME 93.9 fl (80.0-96.0); MONO # 0.7 10^3/uL (0.0-0.8); MONO % 5.8 % (2.0-8.0); NEUTROPHILS # 11.1 10^3/uL (1.5-8.5); NEUTROPHILS % 89.6 % (36.0-66.0); PLATELET COUNT, AUTOMATED 250 10^3/uL (150-450); RED BLOOD COUNT 3.63 10^6/uL (4.00-5.40); WHITE BLOOD COUNT 12.4 10^3/uL (4.0-10.0)
[2022-08-02 13:39] LABS: INR 1.58; PARTIAL THROMBOPLASTIN TIME 37.4 SECONDS (24.8-34.2); PROTHROMBIN TIME 19.2 SECONDS (12.5-14.5)
[2022-08-02 13:58] LABS: LIPASE 16 U/L (12-53)
[2022-08-02 14:00] LABS: BILIRUBIN,DIRECT 0.8 MG/DL (<0.4)
[2022-08-02 14:01] LABS: ALBUMIN 1.4 G/DL (3.2-5.2); ALKALINE PHOSPHATASE 278 U/L (46-116); ALT/SGPT < 9 U/L (7.0-40); AST/SGOT 17 U/L (<34); BILIRUBIN,TOTAL 1.1 MG/DL (0.3-1.2); BLOOD UREA NITROGEN 83 MG/DL (9-23); CALCIUM LEVEL 7.7 MG/DL (8.3-10.6); CARBON DIOXIDE LEVEL 22 MMOL/L (20-31); CHLORIDE LEVEL 91 MMOL/L (98-107); GLOMERULAR FILTRATION RATE 7.4 (>32); GLUCOSE, FASTING 112 MG/DL (74-106); POTASSIUM SERUM 3.5 MMOL/L (3.5-5.1); SODIUM LEVEL 131 MMOL/L (136-145)
[2022-08-02] MEDS ORDERED: ISOVUE-370 76% 100ML VIAL As Ordered ONE (14:09)
[2022-08-02 14:21] LABS: RSV AMPLIFICATION NEGATIVE (NEGATIVE)
[2022-08-02] MEDS ORDERED: ONDANSETRON 4MG 2ML VIAL IV ONE (14:35)
[2022-08-02] MEDS ORDERED: NS 1,000 ML IV SCH (14:50)
[2022-08-02 15:48] LABS: VENOUS BASE EXCESS -1.6 (-2.0-2.0); VENOUS O2 SATURATION 99.4 % (60.0-80.0); VENOUS PARTIAL PRESSURE CO2 19.9 mmHg (38.0-50.0); VENOUS PARTIAL PRESSURE O2 212.9 mmHg (30.0-50.0); VENOUS PH 7.574 UNITS (7.330-7.430); VENOUS STANDARD HCO3 23.2 MEQ/L; VENOUS TOTAL CO2 18.6 MEQ/L (24.0-28.0)
[2022-08-02] MEDS ORDERED: KCL 10MEQ/100ML SWI (KRUN) 10 MEQ in IV 1 EA IV ONE (15:50)
[2022-08-02] MEDS ORDERED: ACETAMINOPHEN TAB 650MG DOSE (2X325MG) PO PRN (16:10)
[2022-08-02] MEDS ORDERED: METO25TA PO (16:57)
[2022-08-02] MEDS ORDERED: LORA-674 PO (16:57)
[2022-08-02] MEDS ORDERED: PANT-23 PO (16:58)
[2022-08-02] MEDS ORDERED: SPIR-10 PO (17:09)
[2022-08-02] MEDS ORDERED: POTA1TAB23 PO (17:09)
[2022-08-02] MEDS ORDERED: HOME MED LIST COMPLETE! XX SCH (17:15)
[2022-08-02] MEDS ORDERED: FLUTICASONE PROP 0.05% NASAL SPRAY 16 GM (FLONASE) NARES PRN (17:35)
[2022-08-02] MEDS ORDERED: DEXTROSE 50% 50ML SYRINGE IV PRN (17:55)
[2022-08-02] MEDS ORDERED: GLUCAGON INJ 1MG VIAL SC PRN (17:55)
[2022-08-02] MEDS ORDERED: GLUCOSE 4GM CHEW TABLET PO PRN (17:55)
[2022-08-02 18:37] LABS: CK-MB VALUE MASS < 1.0 NG/ML (<3.6)
[2022-08-02 18:38] LABS: CPK CREATINE PHOSPHOKINASE 15 U/L (34-145); MB/CK RELATIVE INDEX 6.66 (< OR =4)
[2022-08-02] MEDS: ONDANSETRON 4MG 2ML VIAL IV PRN (18:50)
[2022-08-02] MEDS: METOPROLOL SUCC *XL* 25MG TAB (TopROL *XL*) PO SCH (20:15)
[2022-08-02] MEDS: PANTOPRAZOLE 40MG TAB (PROTONIX) PO SCH (20:15)
[2022-08-02] MEDS: LACTIC ACID 12% LOTION 225 GM BTL TOP SCH (21:00)
[2022-08-03] VITALS (12 sets, daily range): BP systolic 58–102; BP diastolic 40–56
[2022-08-03] MEDS ORDERED: MIDODRINE 5 MG TAB PO ONE (04:10)
[2022-08-03] MEDS ORDERED: PILL CUTTER 1 EACH XX PRN (04:15)
[2022-08-03] MEDS: LEVOTHYROXINE 75MCG TABLET (0.075MG) PO SCH (05:07)
[2022-08-03] MEDS ORDERED: SODIUM CHLORIDE 0.9% 1000ML IV PRN (06:00)
[2022-08-03] MEDS ORDERED: HEPARIN 1,000UNITS/ML 10ML VIAL (FOR RADIOLOGY & DIALYSIS ONLY) IV PRN (06:00)
[2022-08-03] MEDS ORDERED: HEPARIN 1,000UNITS/ML 10ML VIAL (FOR RADIOLOGY & DIALYSIS ONLY) XX SCH (06:00)
[2022-08-03 06:39] LABS: HEMATOCRIT 30.7 % (36.0-47.0); HEMOGLOBIN 10.7 g/dl (12.0-15.5); MEAN CORPUSCULAR HEMOGLOBIN 32.1 pg (27.0-33.0); MEAN CORPUSCULAR HGB CONC 34.9 g/dl (32.0-36.5); MEAN CORPUSCULAR VOLUME 92.2 fl (80.0-96.0); PLATELET COUNT, AUTOMATED 266 10^3/uL (150-450); RED BLOOD COUNT 3.33 10^6/uL (4.00-5.40); WHITE BLOOD COUNT 11.6 10^3/uL (4.0-10.0)
[2022-08-03 07:12] LABS: ALBUMIN 1.3 G/DL (3.2-5.2); ALKALINE PHOSPHATASE 258 U/L (46-116); ALT/SGPT < 9 U/L (7.0-40); AST/SGOT 15 U/L (<34); BILIRUBIN,TOTAL 1.1 MG/DL (0.3-1.2); BLOOD UREA NITROGEN 90 MG/DL (9-23); CALCIUM LEVEL 7.7 MG/DL (8.3-10.6); CARBON DIOXIDE LEVEL 19 MMOL/L (20-31); CHLORIDE LEVEL 91 MMOL/L (98-107); CREATININE FOR GFR 6.11 MG/DL (0.55-1.30); GLUCOSE, FASTING 107 MG/DL (74-106); POTASSIUM SERUM 4.1 MMOL/L (3.5-5.1); SODIUM LEVEL 131 MMOL/L (136-145); TOTAL PROTEIN 4.9 G/DL (5.7-8.2)
[2022-08-03] MEDS: MIDODRINE 5 MG TAB PO SCH ×3 (07:48→15:36)
[2022-08-03] MEDS: ONDANSETRON 4MG 2ML VIAL IV PRN ×2 (07:48→20:55)
[2022-08-03] MEDS ORDERED: FERROUS SULFATE 325MG TAB PO SCH (09:00)
[2022-08-03] MEDS ORDERED: POTASSIUM CHLORIDE 10MEQ SR TABLET PO SCH (09:00)
[2022-08-03] MEDS: LORATADINE 10 MG TAB PO SCH (09:00)
[2022-08-03] MEDS: PANTOPRAZOLE 40MG TAB (PROTONIX) PO SCH ×2 (09:00→20:54)
[2022-08-03] MEDS ORDERED: metOLazone 2.5 MG TAB PO SCH (09:00)
[2022-08-03] MEDS: METOPROLOL SUCC *XL* 25MG TAB (TopROL *XL*) PO SCH ×3 (12:28→20:57)
[2022-08-03] MEDS ORDERED: SODIUM CHLORIDE 0.9% 1000ML IV ONE ×2 (20:40→21:20)
[2022-08-03] MEDS ORDERED: MIDODRINE 2.5 MG TAB PO ONE (20:40)
[2022-08-03] MEDS: LACTIC ACID 12% LOTION 225 GM BTL TOP SCH (20:57)
[2022-08-03 21:10] LABS: HEMATOCRIT 29.3 % (36.0-47.0); HEMOGLOBIN 9.9 g/dl (12.0-15.5)
[2022-08-04] VITALS (10 sets, daily range): BP systolic 75–94; BP diastolic 42–64; O2SAT 96–97
[2022-08-04 02:32] LABS: HEMATOCRIT 29.3 % (36.0-47.0)
[2022-08-04] MEDS: LEVOTHYROXINE 75MCG TABLET (0.075MG) PO SCH (05:36)
[2022-08-04 06:52] LABS: HEMATOCRIT 30.8 % (36.0-47.0); HEMOGLOBIN 10.4 g/dl (12.0-15.5); MEAN CORPUSCULAR HEMOGLOBIN 31.4 pg (27.0-33.0); MEAN CORPUSCULAR HGB CONC 33.8 g/dl (32.0-36.5); MEAN CORPUSCULAR VOLUME 93.1 fl (80.0-96.0); PLATELET COUNT, AUTOMATED 247 10^3/uL (150-450); RED BLOOD COUNT 3.31 10^6/uL (4.00-5.40); WHITE BLOOD COUNT 8.7 10^3/uL (4.0-10.0)
[2022-08-04 07:16] LABS: ALBUMIN 1.4 G/DL (3.2-5.2); BILIRUBIN,TOTAL 1.2 MG/DL (0.3-1.2); CALCIUM LEVEL 7.5 MG/DL (8.3-10.6); CREATININE FOR GFR 4.01 MG/DL (0.55-1.30); GLOMERULAR FILTRATION RATE 11.3 (>32); TOTAL PROTEIN 4.9 G/DL (5.7-8.2)
[2022-08-04] MEDS: PANTOPRAZOLE 40MG TAB (PROTONIX) PO SCH ×2 (07:55→21:00)
[2022-08-04] MEDS: MIDODRINE 5 MG TAB PO SCH ×4 (07:55→17:35)
[2022-08-04] MEDS: LORATADINE 10 MG TAB PO SCH (07:56)
[2022-08-04] MEDS: METOPROLOL SUCC *XL* 25MG TAB (TopROL *XL*) PO SCH ×3 (07:56→21:00)
[2022-08-04] MEDS ORDERED: PIPERACILLIN/TAZOBACTAM SOD 3.375 GM in D5W MINI-BAG PLUS 50 ML IV SCH (08:15)
[2022-08-04] MEDS ORDERED: PIPERACILLIN/TAZOBACTAM SOD 2.25 GM in D5W MINI-BAG PLUS 50 ML IV SCH (09:00)
[2022-08-04] MEDS ORDERED: NS 500 ML IV ONE ×3 (10:35→17:15)
[2022-08-04 11:20] LABS: ABG BASE EXCESS -5.7 (-2.0-2.0); ABG HCO3 18.3 MEQ/L (22.0-26.0); ABG O2 SATURATION 82.3 % (95.0-99.0); ABG PARTIAL PRESSURE CO2 30.7 mmHg (35.0-45.0); ABG STANDARD HCO3 19.5 MEQ/L (22.0-26.0); ABG TOTAL CO2 19.2 MEQ/L (23.0-31.0); ABG pH (ARTERIAL) 7.393 UNITS (7.350-7.450)
[2022-08-04 11:31] LABS: ABG PARTIAL PRESSURE O2 46.5 mmHg (75.0-100.0)
[2022-08-04] MEDS ORDERED: cefTRIAXone SOD 2 GM in D5W MINI-BAG PLUS 50 ML IV SCH (14:00)
[2022-08-04 14:07] LABS: APPEARANCE, BODY FLUID CLOUDY (CLEAR); ASCITES FL COLOR YELLOW (COLORLESS); SOURCE, BODY FLUID ASCITES
[2022-08-04 14:30] LABS: SOURCE, BODY FLUID ALBUMIN ASCITES
[2022-08-04 14:35] LABS: SOURCE, BODY FLUID GLUCOSE ASCITES
[2022-08-04 14:37] LABS: SOURCE, BODY FLUID TOT PROTEIN ASCITES; TOTAL PROTEIN, BODY FLUID 3.1 G/DL (NOT ESTABLISHED)
[2022-08-04] MEDS ORDERED: VANCOMYCIN HCL 1,000 MG, VIAL MATE ADAPTER 1 EACH in NS 250 ML IV SCH (15:50)
[2022-08-04] MEDS ORDERED: ALBUTEROL SULFATE 2.5MG/0.5ML INH NEB SOLN NEB PRN (16:05)
[2022-08-04] MEDS ORDERED: VANCOMYCIN HCL 750 MG, VIAL MATE ADAPTER 1 EACH in D5W 250 ML IV ONE ×2 (17:00→18:00)
[2022-08-04 17:08] LABS: ABG BASE EXCESS -7.8 (-2.0-2.0); ABG HCO3 15.7 MEQ/L (22.0-26.0); ABG O2 SATURATION 95.4 % (95.0-99.0); ABG PARTIAL PRESSURE O2 78.4 mmHg (75.0-100.0); ABG STANDARD HCO3 18.1 MEQ/L (22.0-26.0); ABG TOTAL CO2 16.5 MEQ/L (23.0-31.0); ABG pH (ARTERIAL) 7.399 UNITS (7.350-7.450)
[2022-08-04] MEDS: IPRATROPIUM 0.5MG/ALBUTEROL 2.5MG INH SOL UD 3ML (DUONEB) NEB SCH ×2 (17:30→20:22)
[2022-08-04] MEDS ORDERED: LACTOBACILLUS ACIDOPHILUS CAP (BACID) PO SCH (18:00)
[2022-08-04 18:26] LABS: CK-MB VALUE MASS 3.8 NG/ML (<3.6)
[2022-08-04 18:33] LABS: MB/CK RELATIVE INDEX 1.09 (< OR =4)
[2022-08-04] MEDS: LACTIC ACID 12% LOTION 225 GM BTL TOP SCH (21:34)
[2022-08-05] MEDS ORDERED: VANCOMYCIN HCL 1,000 MG, VIAL MATE ADAPTER 1 EACH in D5W 250 ML IV SCH (16:00)
== END 2022-08-05 00:45 | disposition expired | DRG 371 ==
LOC: M ED 10:56 → EDBD 10:56 → EDBEDREQSVC 15:36 → M ED INP 16:09 → ENRESERV 08-03 13:11 → M MSPAV 08-03 14:21 → M PCU 08-04 16:42
PROVIDERS: ADMIT Internal Medicine; ATTEND Internal Medicine
PROC: 5A1D70Z Performance of Urinary Filtration, Intermittent, Less than 6 Hours Per Day (ICD-10-PCS; 2022-08-03)
PROC: 0W9G3ZZ Drainage of Peritoneal Cavity, Percutaneous Approach (ICD-10-PCS; principal; 2022-08-04 12:10)
DX: K65.2 Spontaneous bacterial peritonitis (principal); N18.6 End stage renal disease; A41.9 Sepsis, unspecified organism; J18.9 Pneumonia, unspecified organism; R65.21 Severe sepsis with septic shock; I50.32 Chronic diastolic (congestive) heart failure; I13.2 Hypertensive heart and chronic kidney disease with heart failure and with stage 5 chronic kidney disease, or end stage renal disease; N25.81 Secondary hyperparathyroidism of renal origin; R18.8 Other ascites; E87.1 Hypo-osmolality and hyponatremia; E87.20 Acidosis, unspecified; J90 Pleural effusion, not elsewhere classified; Z66 Do not resuscitate; Z99.2 Dependence on renal dialysis; I48.91 Unspecified atrial fibrillation; D50.9 Iron deficiency anemia, unspecified; E87.5 Hyperkalemia; E03.9 Hypothyroidism, unspecified; E11.22 Type 2 diabetes mellitus with diabetic chronic kidney disease; E11.42 Type 2 diabetes mellitus with diabetic polyneuropathy; K27.9 Peptic ulcer, site unspecified, unspecified as acute or chronic, without hemorrhage or perforation; I95.9 Hypotension, unspecified; M10.9 Gout, unspecified; M06.9 Rheumatoid arthritis, unspecified; Z96.653 Presence of artificial knee joint, bilateral; Z90.79 Acquired absence of other genital organ(s); Z90.49 Acquired absence of other specified parts of digestive tract; Z95.0 Presence of cardiac pacemaker; Z87.891 Personal history of nicotine dependence; Z79.890 Hormone replacement therapy; Z79.899 Other long term (current) drug therapy; Z88.5 Allergy status to narcotic agent; Z91.040 Latex allergy status; Z91.048 Other nonmedicinal substance allergy status; K74.60 Unspecified cirrhosis of liver; Z20.822 Contact with and (suspected) exposure to COVID-19; R09.2 Respiratory arrest; E86.0 Dehydration